=== PATIENT | female | born 1945 | race Caucasian/White ===

== ENCOUNTER 2025-01-07 10:16 | Inpatient (IN) | payer MEDICARE, SELFPAY ==
[2025-01-07 10:17] VITALS: BP 152/82; PULSE 86; RESP 16; TEMP 36.5; O2SAT 100; BMI 27.1
--- NOTE | 2025-01-07 10:39 | EKG12_ITS ---
Test Reason : REPEAT Blood Pressure : */* mmHG Vent. Rate : 100 BPM Atrial Rate : 100 BPM P-R Int : 164 ms QRS Dur : 82 ms QT Int : 366 ms P-R-T Axes : 47 10 23 degrees QTcB Int : 472 ms Normal sinus rhythm Nonspecific ST and T wave abnormality Abnormal ECG Confirmed by RICHARD DAS ([id number]), editor dictionary CHELSEA REID ([id number]) on 01/12/2025 8:05:14 AM Referred By: Confirmed By: RICHARD DAS
--- NOTE | 2025-01-07 11:07 | ED.VIS.DYS ---
HPI History of Present Illness Chief Complaint: Shortness of Breath Narrative Narrative: Chief complaint and HPI: Episodic back pain. 79-year-old female with past medical history of atrial fibrillation on Eliquis, HTN presents for evaluation of episodic back pain. Patient states since last week she has been developing intermittent pain in her upper thoracic that radiates to her bilateral shoulders, bilateral arms, and neck when lying down in her bed at night. She states that she only has the pain when lying down in bed at night to sleep. She states if she sits up the pain resolves. Does not develop the pain throughout the day. Denies any true chest pain with the event. States that she has occasionally become short of breath with exertion. She has been taking all of her anticoagulation has not missed a dose. Currently asymptomatic. She denies any fever, chills, URI symptoms, abdominal pain, nausea, vomiting. Patient saw her soils technician for the complaint above in which they performed an EKG that showed nonspecific changes and sent her to the emergency department for further workup. Denies any lower extremity pain or swelling. Review of systems: See HPI Medications: As listed on the chart Allergies: As listed on the chart PFSH: Per chart Vital signs: As listed on the chart. Reviewed. Physical exam: Gen: A&O x3, NAD Head: Normocephalic, atraumatic Eyes: No sclera icterus, conjunctiva clear ENT: Moist mucous membranes Neck: Trachea midline, No JVD, no carotid bruit, no midline spinal tenderness, full range of motion, mild tenderness to palpation of the paraspinal musculature of the right upper thoracic paraspinal musculature CV: RRR, no murmurs, no peripheral edema Resp: Lungs CTA BL, no w/r/c GI: Abd soft, non-distended, non-tender, no r/r/g Musc: Full ROM, no deformity other than kyphosis Skin: Warm, dry Neuro: Alert, oriented, grossly intact, sensation intact Psych: Cooperative, appropriate mood and affect [facility] Medical History Macular degeneration GERD (gastroesophageal reflux disease) Paroxysmal atrial fibrillation Essential hypertension Right atrial enlargement Atrial fibrillation HTN (hypertension) SOB (shortness of breath) Fatigue Hypokalemia Home Medications ?Medication ?Instructions ?Recorded ?Last Taken ?Type cetirizine 10 mg capsule 10 mg PO DAILY allergies 03/29/14 Unknown History esomeprazole magnesium 20 mg 20 mg PO DAILY heartburn 10/24/23 01/06/25 08:00 History capsule,delayed release (Nexium) potassium chloride 20 mEq 20 meq PO DAILY #90 TABLETS 10/31/23 01/06/25 22:00 Rx tablet,extended release hydrochlorothiazide 25 mg tablet 25 mg PO DAILY #90 TABLETS 04/24/24 01/06/25 Rx diltiazem HCl 120 mg See Rx Instructions .Route 07/23/24 Unknown Rx capsule,extended release 24 hr .COMPLEX #90 caps apixaban 5 mg tablet (Eliquis) 5 mg PO BID afib #180 tabs 11/04/24 01/06/25 22:00 Rx 5 mg benazepril 20 mg tablet See Rx Instructions .Route 01/01/25 01/06/25 22:00 Rx .COMPLEX #90 tabs Bacillus coagulans 10 billion cell 10 cell PO DAILY probiotic 01/07/25 Unknown History capsule,delayed release (Probiotic (B. coagulans)) latanoprost (PF) 0.005 % eye drops 1 drp ophthalmic (eye) QDAY ocular 01/07/25 01/06/25 22:00 History pressure Allergy/AdvReac Type Severity Reaction Status Date / Time ciprofloxacin (From Cipro) AdvReac Other Verified 01/07/25 10:20 ciprofloxacin HCl (From AdvReac Other Verified 01/07/25 10:20 Cipro) Family History Father Hypertension Mother Jeanette Gehrig's disease Brother CAD (coronary artery disease) Surgical History History of basal cell carcinoma excision History of bilateral cataract extraction breast cyst removal Social History Smoking Status: Never smoker alcohol intake: never substance use type: does not use caffeine: Yes Type: coffee Number of servings: 1 what type of physical activity do you participate in: none seatbelt use: always do you feel safe at home: Yes EXAM Physical Exam Const Vital Signs: 01/07/25 10:17 01/07/25 10:17 01/07/25 12:17 Temperature 97.7 F L Temperature Source Oral Pulse Rate 86 75 Respiratory Rate 16 23 H Respiratory Effort Normal Non-Labored Respiratory Depth Normal Respiratory Pattern Normal Blood Pressure 152/82 H 136/69 H Blood Pressure Mean 105 91 Pulse Ox 100 100 Oxygen Delivery Method Room Air Room Air MDM MDM MDM Narrative Medical decision making narrative: 79-year-old female with past medical history of atrial fibrillation on Eliquis, HTN presents for evaluation of episodic back pain. Onset last week and radiates to bilateral shoulders, arms, neck when develops. States it only happens at night when she is lying down in her bed. Associated symptom is intermittent exertional dyspnea. Denies any chest pain. Patient was sent to the ED by cardiology office. Prior to arriving at the emergency department, I did personally speak to the provider that took care of the patient today over the phone. I did review the cardiology note from today. Patient's most recent stress test was in 2013. There is no acute ischemic changes. I do not see an echocardiogram. Differential diagnosis includes but is not limited to myofascial spasm, ACS, CHF, arrhythmia, electrolyte abnormality, suspect less likely PE or pericarditis. Although patient is not currently endorsing chest pain, main concern from cardiology was for NSTEMI therefore aspirin ordered with cardiac/respiratory workup. EKG and chest x-ray reviewed see below. CBC without leukocytosis or anemia. Platelets unremarkable. INR unremarkable. D-dimer unremarkable. BMP relatively unremarkable without ELVIRA. BNP unremarkable. Troponin elevated at 656. Concern is for NSTEMI. Patient not having any chest pain. Repeat EKG obtained given elevated troponin. EKG again shows normal sinus rhythm with nonspecific ST changes. Heart rate 100. Heparin will be started without bolus given patient is already on Eliquis. I spoke with cardiology on-call, agrees with the heparin without bolus. Recommends echocardiogram be performed today with medical admission. Likely will take to [employer] tomorrow. Hospital service was contacted and patient was discussed, accepted admission. Patient was updated of all the results and confirmed understanding of the plan. Repeat troponin 617. EKG: Interpreted by me/EM physician: EKG shows normal sinus rhythm with nonspecific ST changes. Heart rate 78. This is similar to the previous EKG that was seen in the cardiology office. There is artifact on the EKG from the cardiology office. Diagnostic: Interpreted by me/EM physician: Chest x-ray without pneumothorax, pneumonia, effusion. Mild cardiomegaly. Radiology in agreement, hiatal hernia per radiology. 35 minutes of critical care time utilized in managing the patient. This is due to high probability of and deterioration of the patient based on the patient's condition and excludes any separately billable procedures. Impression: 1. NSTEMI 2. History of atrial fibrillation on Eliquis Lab Data Labs: Laboratory Results - last 24 hr 01/07/25 11:00 WBC 5.8 RBC 4.66 Hgb 13.6 Hct 41.6 MCV 89.3 MCH 29.2 MCHC 32.7 RDW Std Deviation 46.5 H RDW Coeff of Wendy 14.4 Plt Count 247 MPV 9.8 Immature Gran % (Auto) 0.200 Neut % (Auto) 60.4 Lymph % (Auto) 26.7 [place] % (Auto) 10.3 H Eos % (Auto) 1.5 Baso % (Auto) 0.9 Absolute Neuts (auto) 3.5 Absolute Lymphs (auto) 1.56 Nucleated RBC % 0 PT 14.2 INR 1.1 APTT 32.6 D-Dimer Quant (PE/DVT) < 0.27 L Sodium 138 Potassium 4.3 Chloride 104 Carbon Dioxide 20.3 L Anion Gap 14 BUN 20 H Creatinine 0.88 Estim Creat Clear Calc 49.33 L Est GFR (MDRD) Non-Af 67 BUN/Creatinine Ratio 22.7 H Glucose 101 H Calcium 9.5 Troponin T High Sens 656 H* NT pro BNP II 1762 Radiography Diagnostic Testing: Clinical Impression(s) from Imaging Studies Chest X-Ray 01/07/25 11:22 IMPRESSION: Mild cardiomegaly. The lungs are clear. Moderate-sized hiatal hernia. Reading Location: [facility]1 Discharge Plan Disposition Disposition: Acute Care Hospital [facility] Discharge Date/Time: 01/07/25 15:22
[2025-01-07] MEDS: Aspirin 81 MG TAB.CHEW 324 MG PO (11:19)
--- NOTE | 2025-01-07 11:22 | RAD_ITS ---
PROCEDURE: CHEST PA AND LATERAL 01/07/2025 REASON FOR EXAM: SOB TECHNIQUE: Frontal and lateral views of the chest. COMPARISON: None FINDINGS: Hardware: EKG electrodes are seen. Heart: Mild cardiomegaly. Tortuosity of the descending thoracic aorta. Mediastinum: The mediastinal contour is unremarkable. Lungs: Elevation of the right hemidiaphragm. Lungs are clear. Bones: Degenerative changes are identified within the thoracic spine. Increased kyphosis. Moderate-sized hiatal hernia. RAD/Chest PA and Lateral IMPRESSION: Mild cardiomegaly. The lungs are clear. Moderate-sized hiatal hernia. Reading Location: [facility]
[2025-01-07 11:23] LABS: Absolute Lymphocyte Count 1.56 X10^3/uL (0.83-4.51); Absolute Neutrophil Count 3.5 X10^3/uL (2.0-7.7); Basophil# 0.05 X10^3/uL; Basophil% 0.9 % (0-1); Eosinophil# 0.09 X10^3/uL; Eosinophils% 1.5 % (0-5); Hematocrit 41.6 % (37-47); Hemoglobin 13.6 g/dL (12.0-15.0); Lymphocyte # 1.56 X10^3/ul (0.83-4.51); Lymphocyte % 26.7 % (19-41); Mean Corp Hgb Conc 32.7 g/dL (32-36); Mean Corpuscular Hgb 29.2 pg (27.0-32.0); Mean Corpuscular Volume 89.3 fL (81-99); Mean Platelet Vol. 9.8 fl (6.2-12.0); Monocyte% 10.3 % (0-10); NRBC Flagged by Analyzer 0 % (0-5); Neutrophil # 3.53 X10^3/uL (2.7-7.7); Neutrophil % 60.4 % (47-70); Platelet Count 247 K/mm3 (150-450); RBC Distribution Width CV 14.4 % (11.6-14.6); RBC Distribution Width SD 46.5 fl (35.1-43.9); Red Blood Count 4.66 M/mm3 (4.2-5.4); White Blood Count 5.8 K/mm3 (4.4-11.0)
[2025-01-07 11:45] LABS: International Normalized Ratio 1.1; Prothrombin Time (Protime)PT. 14.2 SECONDS (11.7-14.9)
[2025-01-07 11:46] LABS: Partial Thromboplast Time 32.6 Seconds (24.1-36.2)
[2025-01-07 11:52] LABS: Anion Gap 14 (5-15); BUN 20 mg/dL (4-19); BUN/Creat Ratio 22.7 RATIO (10-20); Calcium,Total 9.5 mg/dL (7.6-11.0); Carbon Dioxide 20.3 mmol/L (21.0-32.0); Chloride 104 mmol/L (98-108); Creatinine, Serum 0.88 mg/dL (0.70-1.20); EST Glomerular Filtration Rate 67 (>60); Estimated Creatinine Clearance 49.33 ml/min (50-250); Glucose 101 mg/dL (70-99); Potassium 4.3 mmol/L (3.3-5.1); Sodium Level 138 mmol/L (133-145)
[2025-01-07 11:55] LABS: Pro- Brain NATRIURETIC PEPTIDE 1762 pg/mL (<=1800); Troponin T High Sensitivity 656 ng/L (<=14)
[2025-01-07 12:17] VITALS: BP 136/69; PULSE 75; RESP 23; O2SAT 100
[2025-01-07 12:19] LABS: D-Dimer Quantitative (DVT/PE) < 0.27 FEU/ug/m (0.27-0.49)
--- NOTE | 2025-01-07 12:29 | EKG12_ITS ---
Test Reason : CP Blood Pressure : */* mmHG Vent. Rate : 78 BPM Atrial Rate : 78 BPM P-R Int : 136 ms QRS Dur : 90 ms QT Int : 410 ms P-R-T Axes : 59 14 68 degrees QTcB Int : 467 ms Normal sinus rhythm Nonspecific ST abnormality Abnormal ECG Confirmed by RICHARD DAS ([id number]), editor in chief CHELSEA REID ([id number]) on 01/12/2025 8:05:28 AM Referred By: Confirmed By: RICHARD DAS
[2025-01-07] MEDS: HEPARIN/D5w 25,000 UNITS 25,000 UNITS/250 ML IV.SOLN. 8 UNITS CONT INF (13:00)
--- NOTE | 2025-01-07 13:16 | HP.PCM.HOS_ITS ---
[facility] - General General Date of Service: 01/07/25 Chief Complaint: Shortness of breath HPI Narrative RITIKA DAMON, is a 79 F who presents with shortness of breath. This is a 79-year-old female with A-fib that is presenting with shortness of breath. Symptoms began a week ago and was primarily noted at night when she would lay down. She would also have discomfort into her shoulders and neck and through to her back. Denied any chest pain. To get short of breath with exertion. Over this past week, her symptoms have gotten better. She went to the process pumper office and explained her symptoms and they sent her to the emergency room. She had an EKG that was normal sinus rhythm but did have some subtle T wave inversions in inferior leads. And her cardiac enzymes came back at 656. Cardiology was notified and saw the patient and tentative plan is for a cardiac catheterization on the . Patient has never had a myocardial infarction before. [facility] Medical History Macular degeneration GERD (gastroesophageal reflux disease) Paroxysmal atrial fibrillation Essential hypertension Right atrial enlargement Atrial fibrillation HTN (hypertension) SOB (shortness of breath) Fatigue Hypokalemia Home Medications ?Medication ?Instructions ?Recorded ?Last Taken ?Type cetirizine 10 mg capsule 10 mg PO DAILY 03/29/14 Unkn own History esomeprazole magnesium 20 mg 20 mg PO DAILY 10/24/23 U nknown History capsule,delayed release (Nexium) potassium chloride 20 mEq 20 meq PO DAILY #90 TABLETS 10/31/23 Unknown Rx tablet,extended release hydrochlorothiazide 25 mg tablet 25 mg PO DAILY #90 TA BLETS 04/24/24 Unknown Rx diltiazem HCl 120 mg See Rx Instructions .Route 1 09/23/23 Unknown Rx capsule,extended release 24 hr .COMPLEX #90 caps apixaban 5 mg tablet (Eliquis) 5 mg PO BID #180 tabs 0 11/04/24 Unknown Rx benazepril 20 mg tablet See Rx Instructions .Route 0 01/01/25 Unknown Rx .COMPLEX #90 tabs Bacillus 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 coagulans)) latanoprost (PF) 0.005 % eye drops 1 drp ophthalmic (e ye) QDAY 01/07/25 Unknown History Allergy/AdvReac Type Severity Reaction Status Date / Time ciprofloxacin (From Cipro) AdvReac Other Verified 01/07/25 10:20 ciprofloxacin HCl (From AdvReac Other Verified 01/07/25 10:20 Cipro) Family History Father Hypertension Mother Jeanette Gehrig's disease Brother CAD (coronary artery disease) Surgical History History of basal cell carcinoma excision History of bilateral cataract extraction breast cyst removal Social History Smoking Status: Never smoker alcohol intake: never substance use type: does not use caffeine: Yes Type: coffee Number of servings: 1 what type of physical activity do you participate in: none seatbelt use: always do you feel safe at home: Yes ROS ROS Narrative Denies chest pain, nausea vomiting, diaphoresis, Lower extremity edema. All review of systems were negative except as mentioned above in the history of present illness and the other review of systems. Vital Signs Vital Signs Vital Signs: 01/07/25 10:17 01/07/25 10:17 01/07/25 12:17 Temperature 36.5 C L Temperature Source Oral Pulse Rate 86 75 Respiratory Rate 16 23 H Respiratory Effort Normal Non-Labored Respiratory Depth Normal Respiratory Pattern Normal Blood Pressure 152/82 H 136/69 H Blood Pressure Mean 105 91 Pulse Ox 100 100 Oxygen Delivery Method Room Air Room Air Weight Weight: 69.672 kg Body Mass Index (BMI) 27.1 Physical Exam Const alert and no apparent distress Constitutional Narrative: Kyphotic posture. General Appearance: cooperative and uncooperative HEENT normocephalic and head/scalp atraumatic Eyes Eyes Narrative: No icterus Neck no lymphadenopathy Neck Narrative: No thyromegaly Resp normal respiratory effort, no retractions, no use of accessory muscles and clear to auscultation bilaterally Cardio regular rate, regular rhythm, S1 normal heart sound and S2 normal heart sound GI normal to inspection, nondistended, normoactive bowel sounds, soft to palpation, non-tender and non-distended Extremity normal to inspection Extremity Narrative: Normal pulses. No lower extremity edema. Neuro moves all extremities Sensorium / Orientation: awake, alert and oriented to place Psych affect normal Results Lab / Micro Data Attestation: I reviewed the patient's lab results. 01/07/25 11:00 01/07/25 11:00 Labs: Laboratory Results - last 24 hr 01/07/25 11:00: WBC 5.8, RBC 4.66, Hgb 13.6, Hct 41.6, MCV 89.3, MCH 29.2, MCHC 32.7, RDW Std Deviation 46.5 H, RDW Coeff of Wendy 14.4, Plt Count 247, MPV 9.8, Immature Gran % (Auto) 0.200, Neut % (Auto) 60.4, Lymph % (Auto) 26.7, [place] % (Auto) 10.3 H, Eos % (Auto) 1.5, Baso % (Auto) 0.9, Absolute Neuts (auto) 3.5, Absolute Lymphs (auto) 1.56, Nucleated RBC % 0, PT 14.2, INR 1.1, APTT 32.6, D- Dimer Quant (PE/DVT) < 0.27 L, Sodium 138, Potassium 4.3, Chloride 104, Carbon Dioxide 20.3 L, Anion Gap 14, BUN 20 H, Creatinine 0.88, Estim Creat Clear Calc 49.33 L, Est GFR (MDRD) Non-Af 67, BUN/Creatinine Ratio 22.7 H, Glucose 101 H, Calcium 9.5, Troponin T High Sens 656 H*, NT pro BNP II 1762 EKG Follow-up EKG: Attestation: I personally reviewed and interpreted this EKG as follows: Prior EKG tracings: available for review EKG Rhythm Intrepretation: Sinus Rhythm (Very T waves in inferior leads.) Imaging Radiology Impression Chest X-Ray 01/07/25 11:22 IMPRESSION: Mild cardiomegaly. The lungs are clear. Moderate-sized hiatal hernia. Reading Location: [facility] Assessment & Plan Assessment/Plan (1) NSTEMI, initial episode of care: PLAN: Patient presents with atypical type symptoms and the fact that her symptoms were shortness of breath and pain in her shoulders and neck that started a week ago. She describes her symptoms actually getting better during this time. Troponins were elevated at 656. Cannot rule out that these were even higher before. Will continue to cycle her troponins. Patient does take apixaban at home but has been started on heparin drip. Will hold off on any apixaban for now continue the heparin drip. Patient has been seen by cardiology and tentative plan is for her to have a heart catheterization on the . PLAN: Plan Chronic conditions * Paroxysmal atrial fibrillation: Apixaban being held for now because of being on heparin drip. Continue with diltiazem * GERD: Continue PPI VTE prophylaxis not indicated as patient is already anticoagulated CODE STATUS: Addressed with the patient. Patient wishes to be full code. Charges/Coding Visit Charges Inpatient E&M: 86068 Init Hosp L3
--- NOTE | 2025-01-07 13:26 | CASEMGMT ---
Care Management Face to Face with patient for initial transition planning/care coordination assessment in the ED. This telegraphic typewriter repairer introduced self and role at [facility]. Patient alert and oriented. Patient willing to participate in assessment and is able to answer all questions appropriately. Patient's Efrain, at bedside. Care providers, pharmacy, and demographics verified. Admitting Diagnosis: NSTEMI Other diagnosis history: a-fib PCP: Becky Mcknight Specialists: [facility] Preferred Pharmacy: [facility] Insurance: An[employer] Medicare Prescription Benefit: yes Living Will/HPOA: Efrain is HCPOA. Asked to bring in documents, but patient was unsure if would be able to find them. LNOK: , daughter (Simona) and son (Tom) Living Arrangements: with , 2 story home with 2 steps to enter but first floor living. Independent at baseline with all ADLs/IADLs. Transportation: patient drives DME: none HHC: none SNF/Rehab: none Community Resources: none Patient goals: Patient wishes to discharge home, denies need for home health care at this time. Patient denies any further needs or concerns at this time. Disposition Plan: admission to acute; RN CM/SW to follow for discharge planning needs that may arise. Marine Olivares, SEBD TEACHER, FORGING ROLL OPERATOR
[2025-01-07 13:32] VITALS: BP 136/69; PULSE 75; RESP 23; TEMP 36.6; O2SAT 100
[2025-01-07 13:33] LABS: Troponin T High Sens 2 HR 617 ng/L (<=14)
[2025-01-07 14:00] VITALS: BP 167/85; PULSE 101; RESP 18; O2SAT 98
[2025-01-07 15:46] VITALS: BP 132/80; PULSE 87; RESP 18; TEMP 37; O2SAT 94
--- NOTE | 2025-01-07 16:09 | ECHOCS_ITS ---
Reason For Study Reason For Study: CHEST PAIN Procedure This was a 2D Doppler, Color Flow transthoracic echocardiogram. The study was technically difficult. Due to suboptimal imaging windows. Contrast injection was performed. Exam performed portable in patient room. Left Ventricle Normal left ventricle. The estimated ejection fraction is 45-50 %. Right Ventricle Normal right ventricle. Mitral Valve There is mild mitral annular calcification. Trivial mitral valve insufficiency. Tricuspid Valve Normal tricuspid valve. Aortic Valve Trisinus/trileaflet aortic valve. Pulmonic Valve The pulmonic valve is not well visualized. Great Vessels The aortic root is not well visualized. Pericardium/Pleural No pericardial effusion. Medication Diluted definity 3.0ml given slow IV push to enhance endocardial definition. MMode/2D Measurements & Calculations LVIDd: 4.9 cm IVSd: 1.2 cm LAV(MOD- bp): 61.6 ml LVIDs: 3.8 cm LVPWd: 1.1 cm LAV(MOD- bp) Indexed: 35.7 ml/m2 RVDd: 2.6 cm FS: 21.7 % LAV(MOD- sp2): 54.2 ml LAV(MOD- sp4): 61.8 ml SV(MOD- sp4): 22.3 ml LVAd ap4: 20.2 cm2 LVAd ap2: 19.5 cm2 LVLd ap4: 7.0 cm LVLd ap2: 7.4 cm SI(MOD- sp4): 12.9 ml/m2 EDV(MOD-sp4): 48.5 ml EDV(MOD-sp2): 42.2 ml EDV(sp4-el): 49.7 ml EDV(sp2-el): 43.6 ml LVAs ap4: 14.3 cm2 LVAs ap2: 13.0 cm2 LVLs ap4: 6.3 cm LVLs ap2: 6.4 cm ESV(MOD-sp4): 26.2 ml ESV(MOD-sp2): 22.5 ml ESV(sp4-el): 27.6 ml ESV(sp2-el): 22.5 ml EF(MOD-sp4): 45.9 % EF(MOD-sp2): 46.7 % EF(sp4-el): 44.5 % SV(MOD-sp2): 19.7 ml SV(sp4-el): 22.2 ml LA A4 area: 21.1 cm2 SI(MOD-sp2): 11.4 ml/m2 LA dimension(2D): 4.3 cm TAPSE: 1.8 cm RA A4 area: 10.3 cm2 Time Measurements MV dec time: 0.17 sec Doppler Measurements & Calculations MV E max jimi: 69.3 cm/sec Lat Peak E' Jimi: 7.3 cm/sec Med Peak E' Jimi: 5.2 cm/sec MV A max jimi: 103.7 cm/sec E/E' lat: 9.5 E/E' med: 13.4 MV E/A: 0.67 MV V2 max: 97.8 cm/sec MV P1/2t max jimi: 72.1 cm/sec Ao V2 max: 86.9 cm/sec MV max P.8 mmHg MV P1/2t: 48.5 msec Ao max P.0 mmHg MV V2 mean: 56.4 cm/sec MV dec slope: 435.7 cm/sec2 Ao V2 mean: 58.9 cm/sec MV mean P.4 mmHg Ao mean P.5 mmHg MV V2 VTI: 21.8 cm MVA(P1/2t): 4.5 cm2 Ao V2 VTI: 16.0 cm AV (velocity ratio): 0.90 LV V1 max: 74.3 cm/sec MR max jimi: 516.4 cm/sec PA V2 max: 99.7 cm/sec LV V1 max P.2 mmHg MR max P.7 mmHg PA V2 mean: 61.8 cm/sec LV V1 mean P.1 mmHg MR mean jimi: 413.4 cm/sec LV V1 mean: 49.4 cm/sec MR mean P.9 mmHg LV V1 VTI: 14.4 cm MR VTI: 160.7 cm PI dec slope: 299.7 cm/sec2 TR max jimi: 268.5 cm/sec TR max P.8 mmHg ECHO/Echo Complete W/ Contrast Interpretation Summary The estimated ejection fraction is 45-50 %. In comparison to previous echo mildly reduced LV systolic function. No significant valvular abnormality No pericardial effusion. Ordering Physician: [place] Damico Referring Physician: Becky Mcknight Performed By: Katie Zaragoza, RDCS, RVT
--- NOTE | 2025-01-07 16:09 | EKG12_ITS ---
Test Reason : PRE OP Blood Pressure : */* mmHG Vent. Rate : 96 BPM Atrial Rate : 96 BPM P-R Int : 154 ms QRS Dur : 78 ms QT Int : 328 ms P-R-T Axes : 69 9 184 degrees QTcB Int : 414 ms Sinus rhythm with Premature atrial complexes ST & T wave abnormality, consider anterolateral ischemia Abnormal ECG When compared with ECG of 07-Jan-2025 16:45, MANUAL COMPARISON REQUIRED DATA IS UNCONFIRMED Confirmed by RICHARD DAS ([id number]), society editor CHELSEA REID ([id number]) on 01/12/2025 8:14:06 AM Referred By: RED Confirmed By: RICHARD DAS
--- NOTE | 2025-01-07 16:42 | CON.PCM.CA_ITS ---
HPI Consult Data Date of Consult: 01/07/25 HPI Narrative Reason for Consultation: Non-STEMI HPI Narrative: RITIKA DAMON, is a 79 F who presents [facility] Medical History Macular degeneration GERD (gastroesophageal reflux disease) Paroxysmal atrial fibrillation Essential hypertension Right atrial enlargement Atrial fibrillation HTN (hypertension) SOB (shortness of breath) Fatigue Hypokalemia Home Medications ?Medication ?Instructions ?Recorded ?Last Taken ?Type cetirizine 10 mg capsule 10 mg PO DAILY 03/29/14 Unkn own History esomeprazole magnesium 20 mg 20 mg PO DAILY 10/24/23 U nknown History capsule,delayed release (Nexium) potassium chloride 20 mEq 20 meq PO DAILY #90 TABLETS 10/31/23 Unknown Rx tablet,extended release hydrochlorothiazide 25 mg tablet 25 mg PO DAILY #90 TA BLETS 04/24/24 Unknown Rx diltiazem HCl 120 mg See Rx Instructions .Route 1 09/23/23 Unknown Rx capsule,extended release 24 hr .COMPLEX #90 caps apixaban 5 mg tablet (Eliquis) 5 mg PO BID afib #180 t abs 11/04/24 01/06/25 22:00 Rx 5 mg benazepril 20 mg tablet See Rx Instructions .Route 0 01/01/25 Unknown Rx .COMPLEX #90 tabs Bacillus 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 coagulans)) latanoprost (PF) 0.005 % eye drops 1 drp ophthalmic (e ye) QDAY 01/07/25 Unknown History Allergy/AdvReac Type Severity Reaction Status Date / Time ciprofloxacin (From Cipro) AdvReac Other Verified 01/07/25 10:20 ciprofloxacin HCl (From AdvReac Other Verified 01/07/25 10:20 Cipro) Family History Father Hypertension Mother Jeanette Gehrig's disease Brother CAD (coronary artery disease) Surgical History History of basal cell carcinoma excision History of bilateral cataract extraction breast cyst removal Social History Smoking Status: Never smoker alcohol intake: never substance use type: does not use caffeine: Yes Type: coffee Number of servings: 1 what type of physical activity do you participate in: none seatbelt use: always do you feel safe at home: Yes Physical Exam Cardio Cardio Narrative: 79-year-old female seen and evaluated in the ED Cardiac consultation requested for elevated high sensitive troponins/non-ST elevation WI. She had symptoms of palpitation with shortness of breath and generalized chest pain mainly described as diffuse chest discomfort with some radiation to the back and to both shoulders more prominent on the left side. Cardiac consultation requested as she has elevated high sensitive troponins with a clinical diagnosis of non-ST elevation WI. Patient has history of paroxysmal A-fib and she was on Cardizem as well she was in [facility] with Eliquis As well she had been on lisinopril. Other medical problem include history of GERD and mild macular degeneration. And on previous echocardiogram noted she had right atrial enlargement and she had paroxysmal atrial fibrillation. Bedside evaluation she is comfortable she does not have any active chest pain at time of evaluation. On the biomedical engineering technician showed underlying sinus rhythm. Cardiac exam essentially normal Chest clear to auscultation bilateral Cardiac care plan recommendations; 1. This patient has non-ST elevation WI with significant elevated high sensitive troponin more than 600. Started the patient on heparin Will continue with the Cardizem. Eliquis has been on hold She was given also low-dose aspirin 81 mg. Will start on statin. And will continue on her SAMUEL inhibitor benazepril. Will plan for echocardiographic evaluation to assess LV function. As well we will plan for cardiac catheterization/right radial artery approach with Which will be set up for tomorrow. Mick White MD,[facility] Risk Stratification Risk Stratification Applicable: Yes Age >/= 65: Yes >/= 3 CAD Risk Factors (HTN, HLD, DM, family hx of CAD, or current smoker): Yes (Hypertension) Aspirin Use in the Past 7 Days: Yes Severe Angina (>/= episodes in 24 hours): No EKG ST Changes >/= 0.5mm: No (No significant ST-T changes in the EKG) Positive Cardiac Marker: Yes (High sensitive troponin elevated more than 600) JUAN Risk Stratification Score: 4 JUAN % Risk: 20% Risk Objective Data Vital Signs: Vital Signs Temp Pulse Resp BP Pulse Ox O2 Del Method 98.6 F 87 18 132/80 H 94 Room Air 01/07/25 15:46 01/07/25 15:46 01/07/25 15:46 01/07/25 15:46 01/07/25 15:46 01/07/25 16:11 Oxygen Delivery Method Room Air Weight: 153 lb 9.6 oz Body Mass Index (BMI) 27.1 Lab / Micro Data 01/07/25 11:00 01/07/25 11:00 Labs: Laboratory Results - last 24 hr 01/07/25 11:00: WBC 5.8, RBC 4.66, Hgb 13.6, Hct 41.6, MCV 89.3, MCH 29.2, MCHC 32.7, RDW Std Deviation 46.5 H, RDW Coeff of Wendy 14.4, Plt Count 247, MPV 9.8, Immature Gran % (Auto) 0.200, Neut % (Auto) 60.4, Lymph % (Auto) 26.7, [place] % (Auto) 10.3 H, Eos % (Auto) 1.5, Baso % (Auto) 0.9, Absolute Neuts (auto) 3.5, Absolute Lymphs (auto) 1.56, Nucleated RBC % 0, PT 14.2, INR 1.1, APTT 32.6, D- Dimer Quant (PE/DVT) < 0.27 L, Sodium 138, Potassium 4.3, Chloride 104, Carbon Dioxide 20.3 L, Anion Gap 14, BUN 20 H, Creatinine 0.88, Estim Creat Clear Calc 49.33 L, Est GFR (MDRD) Non-Af 67, BUN/Creatinine Ratio 22.7 H, Glucose 101 H, Calcium 9.5, Troponin T High Sens 656 H*, NT pro BNP II 1762 01/07/25 13:01: Troponin T Hi Sens 2 Hr 617 H* Cardiology Labs/Tests 01/07/25 11:00: WBC 5.8, RBC 4.66, Hgb 13.6, Hct 41.6, MCV 89.3, MCH 29.2, MCHC 32.7, Plt Count 247, MPV 9.8, Immature Gran % (Auto) 0.200, Neut % (Auto) 60.4, Lymph % (Auto) 26.7, [place] % (Auto) 10.3 H, Eos % (Auto) 1.5, Baso % (Auto) 0.9, Absolute Neuts (auto) 3.5, Nucleated RBC % 0, PT 14.2, INR 1.1, APTT 32.6, D- Dimer Quant (PE/DVT) < 0.27 L, Sodium 138, Potassium 4.3, Chloride 104, Carbon Dioxide 20.3 L, Anion Gap 14, BUN 20 H, Creatinine 0.88, Est GFR (MDRD) Non-Af 67, BUN/Creatinine Ratio 22.7 H, Glucose 101 H, Calcium 9.5 Rhythm: EKG: ECHO: Stress Test: Cardiac Cath: PCI: CT Surgery: Holter monitor: EPS: PPM: CXR: Chest CT Scan: Radiography Diagnostic Testing: Radiology Impression Chest X-Ray 01/07/25 11:22 IMPRESSION: Mild cardiomegaly. The lungs are clear. Moderate-sized hiatal hernia. Reading Location: [place] [id number]
[2025-01-07 17:55] LABS: Troponin T High Sens 4 HR 573 ng/L (<=14)
[2025-01-07 18:59] LABS: Partial Thromboplast Time 62.2 Seconds (24.1-36.2)
[2025-01-07] MEDS: Acetaminophen 325 MG Tablet 650 MG PO (19:54)
[2025-01-07 20:01] VITALS: BP 147/69; PULSE 94; RESP 17; TEMP 36.2; O2SAT 97
--- NOTE | 2025-01-07 22:45 | NURSING ---
hep gtt paused d/t losing iv site, will restart as soon as new piv place.
[2025-01-07] MEDS: 0.9% Saline Lock 10 ML Syringe IV (23:05)
--- NOTE | 2025-01-07 23:06 | NURSING ---
hep gtt resume at this time
[2025-01-08] VITALS (17 sets, daily range): BP systolic 112–143; BP diastolic 55–83; PULSE 82–91; RESP 16–17; TEMP 36.1–36.8; O2SAT 92–98
[2025-01-08 01:11] LABS: Partial Thromboplast Time 60.8 Seconds (24.1-36.2)
--- NOTE | 2025-01-08 05:55 | EKG12_ITS ---
Test Reason : ADMIT Blood Pressure : */* mmHG Vent. Rate : 81 BPM Atrial Rate : 81 BPM P-R Int : 140 ms QRS Dur : 90 ms QT Int : 374 ms P-R-T Axes : 47 -2 -42 degrees QTcB Int : 434 ms Normal sinus rhythm Nonspecific ST and T wave abnormality Abnormal ECG When compared with ECG of 07-Jan-2025 12:47, MANUAL COMPARISON REQUIRED DATA IS UNCONFIRMED Confirmed by RICHARD DAS ([id number]), managing editor CHELSEA REID ([id number]) on 01/12/2025 8:14:28 AM Referred By: Confirmed By: RICHARD DAS
[2025-01-08 06:19] LABS: Absolute Lymphocyte Count 2.04 X10^3/uL (0.83-4.51); Absolute Neutrophil Count 2.9 X10^3/uL (2.0-7.7); Basophil# 0.05 X10^3/uL; Basophil% 0.9 % (0-1); Eosinophil# 0.14 X10^3/uL; Eosinophils% 2.5 % (0-5); Hematocrit 39.5 % (37-47); Lymphocyte # 2.04 X10^3/ul (0.83-4.51); Lymphocyte % 36.3 % (19-41); Mean Corp Hgb Conc 32.9 g/dL (32-36); Mean Corpuscular Hgb 29.3 pg (27.0-32.0); Mean Platelet Vol. 9.5 fl (6.2-12.0); Monocyte# 0.51 X10^3/uL; Monocyte% 9.1 % (0-10); NRBC Flagged by Analyzer 0 % (0-5); Neutrophil # 2.87 X10^3/uL (2.7-7.7); Platelet Count 236 K/mm3 (150-450); RBC Distribution Width CV 14.1 % (11.6-14.6); RBC Distribution Width SD 45.5 fl (35.1-43.9); Red Blood Count 4.44 M/mm3 (4.2-5.4); White Blood Count 5.6 K/mm3 (4.4-11.0)
[2025-01-08] MEDS: Lisinopril 20 MG Tablet PO (06:32)
[2025-01-08 06:33] LABS: Partial Thromboplast Time 72.1 Seconds (24.1-36.2)
[2025-01-08] MEDS: dilTIAZem CD 120 MG Capsule PO (06:33)
[2025-01-08] MEDS: Aspirin E.C. 81 MG Tablet PO (06:33)
[2025-01-08 06:48] LABS: Anion Gap 12 (5-15); BUN 17 mg/dL (4-19); Calcium,Total 9.2 mg/dL (7.6-11.0); Carbon Dioxide 22.4 mmol/L (21.0-32.0); Chloride 106 mmol/L (98-108); Creatinine, Serum 0.72 mg/dL (0.70-1.20); EST Glomerular Filtration Rate 85 (>60); Estimated Creatinine Clearance 54.26 ml/min (50-250); Glucose 107 mg/dL (70-99); Potassium 3.9 mmol/L (3.3-5.1); Sodium Level 141 mmol/L (133-145)
--- NOTE | 2025-01-08 10:38 | PN.HOSP_ITS ---
Reason for Visit Reason for Visit: Diagnoses Non-ST elevation (NSTEMI) myocardial infarction (01/07/25) Subjective Subjective Saw patient at bedside with afternoon as she was down having her heart cath done this morning. Several family members were present. Per cardiology, patient was found to have triple-vessel disease and plan is for transfer to [facility] for CABG evaluation. Patient was laying back comfortably in bed and had no chest pain at this time at rest. She denied any other acute concerns at this time. Objective Data Objective Data Vital Signs: Vital Signs Temp Pulse Resp BP Pulse Ox O2 Del Method 97.6 F L 88 16 142/68 H 96 Room Air 01/08/25 08:16 01/08/25 08:16 01/08/25 08:16 01/08/25 08:16 01/08/25 08:16 01/08/25 08:16 Oxygen Delivery Method Room Air Weight: 69.672 kg Body Mass Index (BMI) 27.1 Intake & Output: Intake and Output for Last 24 Hours 01/06/25 01/07/25 01/08/25 23:59 23:59 23:59 Intake Total 73.87 / 313.87 320.87 / 320.87 Balance 73.87 / 313.87 320.87 / 320.87 Lab / Micro Data 01/08/25 06:10 01/08/25 06:10 Labs: Laboratory Results - last 24 hr 01/07/25 11:00: WBC 5.8, RBC 4.66, Hgb 13.6, Hct 41.6, MCV 89.3, MCH 29.2, MCHC 32.7, RDW Std Deviation 46.5 H, RDW Coeff of Wendy 14.4, Plt Count 247, MPV 9.8, Immature Gran % (Auto) 0.200, Neut % (Auto) 60.4, Lymph % (Auto) 26.7, [place] % (Auto) 10.3 H, Eos % (Auto) 1.5, Baso % (Auto) 0.9, Absolute Neuts (auto) 3.5, Absolute Lymphs (auto) 1.56, Nucleated RBC % 0, PT 14.2, INR 1.1, APTT 32.6, D- Dimer Quant (PE/DVT) < 0.27 L, Sodium 138, Potassium 4.3, Chloride 104, Carbon Dioxide 20.3 L, Anion Gap 14, BUN 20 H, Creatinine 0.88, Estim Creat Clear Calc 49.33 L, Est GFR (MDRD) Non-Af 67, BUN/Creatinine Ratio 22.7 H, Glucose 101 H, Calcium 9.5, Troponin T High Sens 656 H*, NT pro BNP II 1762 01/07/25 13:01: Troponin T Hi Sens 2 Hr 617 H* 01/07/25 17:00: Troponin T Hi Sens 4Hr 573 H* 01/07/25 18:35: APTT 62.2 H 01/08/25 00:41: APTT 60.8 H 01/08/25 06:10: WBC 5.6, RBC 4.44, Hgb 13.0, Hct 39.5, MCV 89.0, MCH 29.3, MCHC 32.9, RDW Std Deviation 45.5 H, RDW Coeff of Wendy 14.1, Plt Count 236, MPV 9.5, Immature Gran % (Auto) 0.200, Neut % (Auto) 51.0, Lymph % (Auto) 36.3, [place] % (Auto) 9.1, Eos % (Auto) 2.5, Baso % (Auto) 0.9, Absolute Neuts (auto) 2.9, Absolute Lymphs (auto) 2.04, Nucleated RBC % 0, APTT 72.1 H, Sodium 141, Potassium 3.9, Chloride 106, Carbon Dioxide 22.4, Anion Gap 12, BUN 17, Creatinine 0.72, Estim Creat Clear Calc 54.26, Est GFR (MDRD) Non-Af 85, B UN/Creatinine Ratio 24.0 H, Glucose 107 H, Calcium 9.2, Magnesium 2.0 Radiography Diagnostic Testing: Radiology Impression Chest X-Ray 01/07/25 11:22 IMPRESSION: Mild cardiomegaly. The lungs are clear. Moderate-sized hiatal hernia. Reading Location: [place] [address] Physical Exam Const alert, oriented x3, no apparent distress and average body habitus General Appearance: cooperative and comfortable HEENT normocephalic, head/scalp atraumatic, hearing grossly normal bilaterally, nasal mucous membranes and turbinates normal and moist oral mucous membranes Eyes PERRL, EOMs intact bilaterally and conjunctivae normal Neck full ROM Chest inspection of chest normal Resp normal respiratory effort, normal air movement, no use of accessory muscles and clear to auscultation bilaterally Cardio regular rate, regular rhythm, no murmurs and peripheral pulses 2+ throughout GI normal to inspection, nondistended, normoactive bowel sounds, soft to palpation, non-tender and non-distended Back/Spine normal ROM Extremity normal to inspection, full ROM and no pedal edema Skin no rashes or lesions noted Psych mental status grossly normal Assessment & Plan Assessment/Plan (1) NSTEMI, initial episode of care: PLAN: Plan Patient is a 79-year-old female who presented to [facility] ED on 01/07/2025 with worsening shortness of breath with exertion and fatigue. 1. NSTEMI type I with severe multivessel disease ? Cardiology following. Presented with worsening shortness of breath with exertion and fatigue for about 1 week. Troponin trend on admit 656 > 617 > 573. EKG showed normal sinus rhythm but subtle T wave inversions in inferior leads. Echo showed EF 45 to 50%, mildly reduced previous, no other abnormalities noted. Left heart cath with severe multivessel disease noted. Per cardiology, plan is for transfer to [facility] for CABG evaluation. Continue heparin drip along with home medications of aspirin, statin, Toprol, lisinopril and hydrochlorothiazide. 2. Paroxysmal A-fib ? Stable in normal sinus rhythm since admission. Continue home Toprol. On heparin drip as above. 3. Hypertension ? Continue home medications as above. 4. GERD ? Continue home PPI. DVT prophylaxis: Not indicated, on heparin drip CODE STATUS: Full code, verified Expected disposition: Transfer to [facility] Total clinical time spent by myself addressing the patient's medical issues, reviewing all the data, and collaborating with patient's care team: 35 minutes. Charges/Coding Visit Charges Inpatient E&M: 25089 Subs Hosp L2
--- NOTE | 2025-01-08 11:03 | PCIREPORT_ITS ---
PCI Cardiac Cath Report PCI Report: Procedure performed; 1. Access from the right common femoral artery With placement of 6 Swazi sheath. 2. Selective left coronary angiography 3. Selective right coronary angiography 4. Measurement of LVEDP 5. Pullback pressure 6. Selective right common femoral artery angiography with manual pressure to maintain hemostasis. Preprocedure diagnosis 79-year-old patient who had symptoms of progressive shortness of breath on exertion Presented to the ED yesterday complaining of chest pain diffuse discomfort in the chest radiating to the back and to the left or right shoulder. Patient had history of hypertension Clinical diagnosis of non-ST elevation SD. Consent; Risk and benefit of procedure explained detail patient like to proceed informed consent obtained. Diagnostic catheter used; 1. 6 Swazi sheath in the right common femoral artery 2. 5 Swazi JL 4 3. 5 Swazi JR4. Procedure in detail; Patient brought to the Elevator Erector Helper in fasting state Access obtained from right common femoral artery as she had a very feeble and palpable right radial artery Under fluoroscopic guidance. Then we will proceed with a diagnostic catheter advanced ascending aorta cannulated the left main without difficulty Then we proceed with an evaluation of the left coronary system multiple views including SHAYLEE, BURRELL cranial and caudal views. Following this the catheter exchanged for 5 Swazi JR4 catheter and selective angiographic view of the right coronary system were obtained Close aortic valve in place the catheter in the mid LV Where LVEDP was measured as well as the pullback pressure. Hemodynamics; LVEDP measuring around 50 mmHg 2. No systolic gradient across aortic valve. Coronary angiography; 1. Left main is calcified distal left main at the site of the bifurcation had around 60-70% stenosis. The left main bifurcates into the left anterior descending on the left circumflex. The calcification in the left main extending to the LAD and the left circumflex. 2. Left anterior descending is a large vessel reach all the way to the apex. The mid LAD had nonobstructive atherosclerosis of around 30% at the site of a large septal branch and diagonal branch D1 had an ostial lesion of around 50 to 60%. Septal branches of the LAD provide collateral to the distal RCA. 3. The left circumflex had a subtotal OM 2 which is moderate-sized vessel. Again collateral was noted from the left circumflex into the distal posterolateral branch. 4. RCA occluded proximally/BULLET LUBRICANT MIXER This is well collateralized from the left coronary system Conclusion recommendation; 79-year-old patient who presented with symptoms of shortness of breath Non-ST elevation SD with symptoms of progressive shortness of breath on exertion Underwent cardiac catheterization which showed multivessel CAD. Will evaluate with echocardiogram As well patient will be transferred for evaluation with CABG/[place]/[facility] Possible OROURKE to LAD, and vein graft to the distal RCA, PDA and OM2 Possible quadruple bypass surgery. Mick White MD,[facility]
--- NOTE | 2025-01-08 11:15 | PCIREPORT_ITS ---
PCI Cardiac Cath Report PCI Report: Procedure performed; 1. Access from the right common femoral artery With placement of 6 Monegasque sheath. 2. Selective left coronary angiography 3. Selective right coronary angiography 4. Measurement of LVEDP 5. Pullback pressure 6. Selective right common femoral artery angiography with manual pressure to maintain hemostasis. Preprocedure diagnosis 79-year-old patient who had symptoms of progressive shortness of breath on exertion Presented to the ED yesterday complaining of chest pain diffuse discomfort in the chest radiating to the back and to the left or right shoulder. Patient had history of hypertension Clinical diagnosis of non-ST elevation CO. Consent; Risk and benefit of procedure explained detail patient like to proceed informed consent obtained. Diagnostic catheter used; 1. 6 Monegasque sheath in the right common femoral artery 2. 5 Monegasque JL 4 3. 5 Monegasque JR4. Procedure in detail; Patient brought to the Dobie Man in fasting state Access obtained from right common femoral artery as she had a very feeble and palpable right radial artery Under fluoroscopic guidance. Then we will proceed with a diagnostic catheter advanced ascending aorta cannulated the left main without difficulty Then we proceed with an evaluation of the left coronary system multiple views including SHAYLEE, BURRELL cranial and caudal views. Following this the catheter exchanged for 5 Monegasque JR4 catheter and selective angiographic view of the right coronary system were obtained Close aortic valve in place the catheter in the mid LV Where LVEDP was measured as well as the pullback pressure. Hemodynamics; LVEDP measuring around 50 mmHg 2. No systolic gradient across aortic valve. Coronary angiography; 1. Left main is calcified distal left main at the site of the bifurcation had around 60-70% stenosis. The left main bifurcates into the left anterior descending on the left circumflex. The calcification in the left main extending to the LAD and the left circumflex. 2. Left anterior descending is a large vessel reach all the way to the apex. The mid LAD had nonobstructive atherosclerosis of around 30% at the site of a large septal branch and diagonal branch D1 had an ostial lesion of around 50 to 60%. Septal branches of the LAD provide collateral to the distal RCA. 3. The left circumflex had a subtotal OM 2 which is moderate-sized vessel. Again collateral was noted from the left circumflex into the distal posterolateral branch. 4. 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 Will evaluate with echocardiogram As well patient will be transferred for evaluation with CABG/[place]/[facility] Possible OROURKE to LAD, and vein graft to the distal RCA, PDA and OM2 Possible quadruple bypass surgery. Mick White MD,FACC,[facility]
[2025-01-08 13:40] LABS: Partial Thromboplast Time 28.4 Seconds (24.1-36.2)
[2025-01-08] MEDS: Acetaminophen 325 MG Tablet 650 MG PO (13:55)
[2025-01-08] MEDS: Loratadine 10 MG Tablet PO (13:56)
[2025-01-08] MEDS: hydroCHLOROthiazide 25 MG Tablet PO (13:56)
[2025-01-08] MEDS: Pantoprazole Sodium 20 MG Tablet PO (13:56)
[2025-01-08] MEDS: Potassium Chloride Oral Tablet 20 MEQ PO (13:56)
[2025-01-08] MEDS: 0.9% Saline Lock 10 ML Syringe IV (13:59)
--- NOTE | 2025-01-08 13:59 | PCM.PN.CARD ---
Subjective Subjective Seen and evaluated at bedside along with the family members and nursing staff Post cardiac catheterization Right groin no hematoma. Comfortable lying in bed. Objective Data Vital Signs: Vital Signs Temp Pulse Resp BP Pulse Ox O2 Del Method 97.6 F L 89 16 124/64 H 93 Room Air 01/08/25 08:16 01/08/25 13:00 01/08/25 08:16 01/08/25 13:00 01/08/25 13:00 01/08/25 13:00 Oxygen Delivery Method Room Air Weight: 153 lb 9.6 oz Body Mass Index (BMI) 27.1 Intake & Output: Intake and Output for Last 24 Hours 01/06/25 01/07/25 01/08/25 23:59 23:59 23:59 Intake Total 73.87 / 313.87 560.87 / 560.87 Balance 73.87 / 313.87 560.87 / 560.87 Lab / Micro Data 01/08/25 06:10 01/08/25 06:10 Labs: Laboratory Results - last 24 hr 01/07/25 17:00: Troponin T Hi Sens 4Hr 573 H* 01/07/25 18:35: APTT 62.2 H 01/08/25 00:41: APTT 60.8 H 01/08/25 06:10: WBC 5.6, RBC 4.44, Hgb 13.0, Hct 39.5, MCV 89.0, MCH 29.3, MCHC 32.9, RDW Std Deviation 45.5 H, RDW Coeff of Wendy 14.1, Plt Count 236, MPV 9.5, Immature Gran % (Auto) 0.200, Neut % (Auto) 51.0, Lymph % (Auto) 36.3, [place] % (Auto) 9.1, Eos % (Auto) 2.5, Baso % (Auto) 0.9, Absolute Neuts (auto) 2.9, Absolute Lymphs (auto) 2.04, Nucleated RBC % 0, APTT 72.1 H, Sodium 141, Potassium 3.9, Chloride 106, Carbon Dioxide 22.4, Anion Gap 12, BUN 17, Creatinine 0.72, Estim Creat Clear Calc 54.26, Est GFR (MDRD) Non-Af 85, BUN/Creatinine Ratio 24.0 H, Glucose 107 H, Calcium 9.2, Magnesium 2.0 01/08/25 13:18: APTT 28.4 Cardiology Labs/Tests 01/07/25 18:35: APTT 62.2 H 01/08/25 00:41: APTT 60.8 H 01/08/25 06:10: WBC 5.6, RBC 4.44, Hgb 13.0, Hct 39.5, MCV 89.0, MCH 29.3, MCHC 32.9, Plt Count 236, MPV 9.5, Immature Gran % (Auto) 0.200, Neut % (Auto) 51.0, Lymph % (Auto) 36.3, [place] % (Auto) 9.1, Eos % (Auto) 2.5, Baso % (Auto) 0.9, Absolute Neuts (auto) 2.9, Nucleated RBC % 0, APTT 72.1 H, Sodium 141, Potassium 3.9, Chloride 106, Carbon Dioxide 22.4, Anion Gap 12, BUN 17, Creatinine 0.72, Est GFR (MDRD) Non-Af 85, BUN/Creatinine Ratio 24.0 H, Glucose 107 H, Calcium 9.2, Magnesium 2.0 01/08/25 13:18: APTT 28.4 Rhythm: EKG: ECHO: Stress Test: Cardiac Cath: PCI: CT Surgery: Holter monitor: EPS: PPM: CXR: Chest CT Scan: Radiography Diagnostic Testing: Radiology Impression Echocardiogram 01/07/25 16:09 Interpretation Summary The estimated ejection fraction is 45-50 %. In comparison to previous echo mildly reduced LV systolic function. No significant valvular abnormality No pericardial effusion. Ordering Physician: [place] Damico Referring Physician: Becky Mcknight Performed By: Katie Zaragoza, RDCS, RVT Physical Exam Cardio Cardio Narrative: Cardiac rhythm is sinus rhythm Cardiac exam S1-S2 is regular Chest exam is clear to auscultation bilateral. Examination lower extremity no lower extremity edema. Assessment & Plan Assessment/Plan (1) NSTEMI, initial episode of care: (2) Paroxysmal atrial fibrillation: (3) Essential hypertension: PLAN: Cardiac care plan; 79-year-old patient underwent cardiac catheterization today Her presentation is symptoms of progressive shortness of breath Patient had history of hypertension History of paroxysmal atrial fibrillation GERD Has ongoing symptoms of which are described as shortness of breath on exertion With diffuse chest pain radiating to both shoulder and to the back She has evaluation by echocardiogram which showed mildly reduced LV systolic function Ejection fraction the range of 45-50% She been seen by the cardiology team over here with Dr. 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 She has a very good distal targets to LAD diagonal OM 2 and distal RCA. Cardiac care plan discussed with the [facility]/at [facility] And plan will be to start on the medical therapy with aspirin, statin, SAMUEL inhibitor lisinopril, beta-clark metoprolol XL 25 mg In addition to heparin. Patient has paroxysmal A-fib And once she transfer she will be evaluated for CABG I discussed in detail the cardiac care plan to the patient as well as to the family and nursing staff here at [facility]. Mick White MD,FACC,[facility]
--- NOTE | 2025-01-08 15:48 | CASEMGMT ---
Tertiary Insurance review for hospitals In-network with [facility] insurance if transfer is recommended is as follows: [facility], [facility], [place], [facility], [facility], [facility], , [place], [facility], [facility], and [place]. Abbey Godwin, Discharge Planning Asst.
--- NOTE | 2025-01-08 20:28 | NURSING ---
Report Called To [facility]. Report given to Layla FALL.
[2025-01-08 20:53] LABS: Partial Thromboplast Time 48.2 Seconds (24.1-36.2)
[2025-01-08] MEDS: Latanoprost 0.005% 1 Bottle 1 DRP OPHTHALMIC (21:15)
--- NOTE | 2025-01-09 09:11 | DCINST_ITS ---
Discharge Instructions DC O2, CPAP, BIPAP needs Home O2 Discharge instructions: No Follow Up Care Test Results: Test results from this visit will be discussed in further detail at your follow- up appointment, if applicable. Discharge Plan Admission Admit Date/Time: 01/07/25 13:00 Primary Reason for Your Visit: Shortness of breath with exertion Attending Provider: Danial Salazar Primary Care Provider: MOLLY WHITEHEAD Consulting Providers: Mick White; Washington Damico Discharge Orders/Prescriptions Prescriptions: Continued esomeprazole magnesium [Nexium] 20 mg capsule,delayed release(DR/EC) 20 mg PO DAILY Probiotic (B. coagulans) 10 billion cell capsule,delayed release(DR/EC) 10 cell PO DAILY latanoprost (PF) 0.005 % drops 1 drp ophthalmic (eye) QDAY cetirizine 10 MG capsule 10 mg PO DAILY Patient Comments: allergies potassium chloride 20 mEq tablet extended release 20 meq PO DAILY Qty: 90 4RF hydrochlorothiazide 25 mg tablet 25 mg PO DAILY Qty: 90 3RF diltiazem HCl 120 mg capsule,extended release 24hr See Rx Instructions .ROUTE .COMPLEX Qty: 90 3RF Dose Instruction: TAKE 1 CAPSULE BY MOUTH EVERY DAY Rx Instructions: TAKE 1 CAPSULE BY MOUTH EVERY DAY Eliquis 5 mg tablet 5 mg PO BID Qty: 180 3RF benazepril 20 mg tablet See Rx Instructions .ROUTE .COMPLEX Qty: 90 3RF Dose Instruction: TAKE 1 TABLET BY MOUTH EVERY DAY Rx Instructions: TAKE 1 TABLET BY MOUTH EVERY DAY Referrals / Follow Up: MOLLY WHITEHEAD CRNP [Primary Care Provider] - Disposition Disposition (needs filled in before D/C Order can be placed): Acute [facility]
--- NOTE | 2025-01-09 09:12 | PCM.DC.SUM ---
Providers Date of Admission: 01/07/25 Date of Discharge: 01/08/25 Primary Care Physician: ERIN GRANT Consultations 01/07/25 16:09 Consult: Cardiology Routine Consulting Provider: Mick White Reason for Consult: Chest Pain EMERGENT Consult: No MD Notified: Yes Date Notified: 01/07/25 Time Notified: 13:03 Method of Notification: ED Physician Initiated Reason For Visit: NSTEMI Diagnosis Discharge Diagnosis (1) NSTEMI, initial episode of care: Status: Acute Code(s): I21.4 - Non-ST elevation (NSTEMI) myocardial infarction (2) Paroxysmal atrial fibrillation: Status: Acute Code(s): I48.0 - Paroxysmal atrial fibrillation (3) Essential hypertension: Status: Acute Code(s): I10 - Essential (primary) hypertension Medications at Discharge Home Medications cetirizine 10 mg capsule 10 mg PO DAILY allergies 03/29/14 esomeprazole magnesium 20 mg capsule,delayed release (Nexium) 20 mg PO DAILY heartburn 10/24/23 potassium chloride 20 mEq tablet,extended release 20 meq PO DAILY #90 TABLETS 10/31/23 hydrochlorothiazide 25 mg tablet 25 mg PO DAILY #90 TABLETS 04/24/24 diltiazem HCl 120 mg capsule,extended release 24 hr See Rx Instructions .Route .COMPLEX #90 caps 07/23/24 apixaban 5 mg tablet (Eliquis) 5 mg PO BID afib #180 tabs 11/04/24 benazepril 20 mg tablet See Rx Instructions .Route .COMPLEX #90 tabs 01/01/25 Bacillus coagulans 10 billion cell capsule,delayed release (Probiotic (B. coagulans)) 10 cell PO DAILY probiotic 01/07/25 latanoprost (PF) 0.005 % eye drops 1 drp ophthalmic (eye) QDAY ocular pressure 01/07/25 Hospital Course Operations None Procedures Cardiac catheterization, EKG, Transthoracic echo and - (Chest x-ray) Summary of Care Provided Minutes Spent on Discharge: 35 Hospital Course: Patient is a 79-year-old female who presented to [facility] ED on 01/07/2025 with worsening shortness of breath with exertion and fatigue. Hospital course as noted below. Patient transferred to [facility] on 01/08. 1. NSTEMI type I with severe multivessel disease ? Cardiology followed. Presented with worsening shortness of breath with exertion and fatigue for about 1 week. Troponin trend on admit 656 > 617 > 573. EKG showed normal sinus rhythm but subtle T wave inversions in inferior leads. Echo showed EF 45 to 50%, mildly reduced previous, no other abnormalities noted. Left heart cath with severe multivessel disease noted. Per cardiology, recommendation was for transfer for CABG evaluation. Transferred to [facility] on 01/09. Continue heparin drip along with home medications of aspirin, statin, Toprol, lisinopril and hydrochlorothiazide. 2. Paroxysmal A-fib ? Stable in normal sinus rhythm since admission. Continue home Toprol. On heparin drip as above. 3. Hypertension ? Continue home medications as above. 4. GERD ? Continue home PPI. Total clinical time spent by myself addressing the patient's medical issues, reviewing all the data, and collaborating with patient's care team: 35 minutes. Physical Exam Const alert, oriented x3, no apparent distress and average body habitus General Appearance: cooperative and comfortable HEENT normocephalic, head/scalp atraumatic, hearing grossly normal bilaterally, nasal mucous membranes and turbinates normal and moist oral mucous membranes Eyes PERRL, EOMs intact bilaterally and conjunctivae normal Neck full ROM Chest inspection of chest normal Resp normal respiratory effort, normal air movement, no use of accessory muscles and clear to auscultation bilaterally Cardio regular rate, regular rhythm, no murmurs and peripheral pulses 2+ throughout GI normal to inspection, nondistended, normoactive bowel sounds, soft to palpation, non-tender and non-distended Back/Spine normal ROM Extremity normal to inspection, full ROM and no pedal edema Skin no rashes or lesions noted Psych mental status grossly normal Weight / BMI Weight Weight: 69.672 kg Body Mass Index (BMI) 27.1 ABG / Lab / Microbiology Data 01/08/25 06:10 01/08/25 06:10 Laboratory: Laboratory Results - last 24 hr 01/08/25 13:18: APTT 28.4 01/08/25 20:00: APTT 48.2 H Radiography Diagnostic Testing: Radiology Impression Echocardiogram 01/07/25 16:09 Interpretation Summary The estimated ejection fraction is 45-50 %. In comparison to previous echo mildly reduced LV systolic function. No significant valvular abnormality No pericardial effusion. Ordering Physician: Washington Damico Referring Physician: Becky Whitehead Performed By: Katie Zaragoza, CINDY, RVT D/C Instructions DC O2, CPAP, BIPAP Needs Home O2 Discharge instructions: No Meaningful Use Info Meaningful Use Meaningful Use Diagnoses (Choose all that apply): None applicable Ischemic Stroke Statin Dosing Therapy Reference: STATIN DOSE THERAPY REFERENCE: * Patients > 75 years receive moderate or high dose statin therapy. * Patients 75 years or YOUNGER should receive HIGH intensity statin dose unless contraindicated. You will be required to document reason for non-treatment if statin daily dose does not meet guidelines. HIGH DOSE STATIN THERAPY DAILY Atorvastatin > than or = to 40 mg Rosuvastatin > than or = to 20 mg Amlodipine + Atorvastatin > than or = to 2.5/40 mg Ezetimibe + Simvastatin 10/80 mg Simvastatin 80mg Discharge Plan Admission Admit Date/Time: 01/07/25 13:00 Primary Reason for Your Visit: Shortness of breath with exertion Attending Provider: Danial Salazar Primary Care Provider: BECKY WHITEHEAD Consulting Providers: Mick White; Washington Damico Discharge Orders/Prescriptions Prescriptions: Continued esomeprazole magnesium [Nexium] 20 mg capsule,delayed release(DR/EC) 20 mg PO DAILY Probiotic (B. coagulans) 10 billion cell capsule,delayed release(DR/EC) 10 cell PO DAILY latanoprost (PF) 0.005 % drops 1 drp ophthalmic (eye) QDAY cetirizine 10 MG capsule 10 mg PO DAILY Patient Comments: allergies potassium chloride 20 mEq tablet extended release 20 meq PO DAILY Qty: 90 4RF hydrochlorothiazide 25 mg tablet 25 mg PO DAILY Qty: 90 3RF diltiazem HCl 120 mg capsule,extended release 24hr See Rx Instructions .ROUTE .COMPLEX Qty: 90 3RF Dose Instruction: TAKE 1 CAPSULE BY MOUTH EVERY DAY Rx Instructions: TAKE 1 CAPSULE BY MOUTH EVERY DAY Eliquis 5 mg tablet 5 mg PO BID Qty: 180 3RF benazepril 20 mg tablet See Rx Instructions .ROUTE .COMPLEX Qty: 90 3RF Dose Instruction: TAKE 1 TABLET BY MOUTH EVERY DAY Rx Instructions: TAKE 1 TABLET BY MOUTH EVERY DAY Referrals / Follow Up: BECKY WHITEHEAD CRNP [Primary Care Provider] - Disposition Disposition (needs filled in before D/C Order can be placed): Acute Care Hospital Charges/Coding Visit Charges Inpatient E&M: 86205 Disch Hosp >30min
[2025-01-09 10:04] LABS: ACT Activated Clotting Time 147 sec (74-137)
== END 2025-01-08 23:50 | disposition short-term general hospital (02) | DRG 282 ==
LOC: ED 13:38 → PCU 15:08
PROVIDERS: Internal Medicine Interventional Cardiology; Emergency Provider Surgery; PCP Nurse Practitioner Adult Health; Visit Provider Hospitalist
DX: I21.4 Non-ST elevation (NSTEMI) myocardial infarction (principal); I10 Essential (primary) hypertension; I48.0 Paroxysmal atrial fibrillation; K21.9 Gastro-esophageal reflux disease without esophagitis; Z79.01 Long term (current) use of anticoagulants; Z82.49 Family history of ischemic heart disease and other diseases of the circulatory system; Z79.899 Other long term (current) drug therapy
CPT/HCPCS: 36415; 71046; 80048; 83735; 83880; 84484; 85025; 85347; 85379; 85610; 85730; 93005; 93306; 93454; 99152; 99153; 99285; C1894; Q9957; Q9967; A4216; C1769; C8929

== ENCOUNTER → 2025-02-11 | Outpatient (CLI) | payer MEDICARE, SELFPAY ==
--- NOTE | 2025-02-11 14:40 | RAD_ITS ---
PROCEDURE: CHEST PA AND LATERAL 02/11/2025 REASON FOR EXAM: ABNORMAL LUNG SOUNDS, HX PLEURAL EFFUSION TECHNIQUE: CHEST PA AND LATERAL COMPARISON: PA and lateral chest of 01/07/2025. RAD/Chest PA and Lateral IMPRESSION: The lateral view is limited by significant patient motion. Generalized osteopenia with significant kyphosis again noted. No interval osse ous change is appreciated. Interval sternotomy. Small right and [id number] left pleural effusions are now seen. No pulmonary edema is identified. No focal infiltrate is seen. No pneumothorax is evident. Borderline cardiomegaly, not clearly changed since the prior study. Reading Location: [place] [id number]
[2025-02-11 15:11] LABS: Hematocrit 30.4 % (37-47); Hemoglobin 9.4 g/dL (12.0-15.0); Immature Granulocytes Count 0.020 X10^3/uL (0.0-0.0); Mean Corp Hgb Conc 30.9 g/dL (32-36); Mean Corpuscular Volume 93.3 fL (81-99); Mean Platelet Vol. 10.5 fl (6.2-12.0); NRBC Flagged by Analyzer 0 % (0-5); Platelet Count 227 K/mm3 (150-450); RBC Distribution Width CV 15.2 % (11.6-14.6); RBC Distribution Width SD 51.9 fl (35.1-43.9); Red Blood Count 3.26 M/mm3 (4.2-5.4); White Blood Count 5.9 K/mm3 (4.4-11.0)
[2025-02-11 16:30] LABS: AST(SGOT) 28 U/L (<=31); Alanine Aminotransfer ALT/SGPT 24 U/L (<=34); Albumin, Serum 3.8 g/dL (3.4-4.8); Alkaline Phosphatase 104 U/L (35-104); Anion Gap 11 (5-15); BUN 16 mg/dL (4-19); BUN/Creat Ratio 20.2 RATIO (10-20); Calcium,Total 9.2 mg/dL (7.6-11.0); Carbon Dioxide 20.2 mmol/L (21.0-32.0); Chloride 111 mmol/L (98-108); Cholesterol 114 mg/dL (<=200); Globulin 3.0 g/dL (2.2-4.2); Glucose 106 mg/dL (70-99); Low Density Lipoprotein Calc. 53 mg/dL; Potassium 4.4 mmol/L (3.3-5.1); Pro- Brain NATRIURETIC PEPTIDE 4717 pg/mL (<=1800); Triglycerides 129 mg/dL; Very Low Density Lipoprotein 26 mg/dL (5-40); cholesterol:hdl ratio screen 3.21
== END | disposition home or self-care (01) ==
LOC: RAD 14:09
PROVIDERS: PCP Nurse Practitioner Adult Health; Referring Provider Student in an Organized Health Care Education/Training Program; Visit Provider Student in an Organized Health Care Education/Training Program
DX: J90 Pleural effusion, not elsewhere classified (principal); R06.02 Shortness of breath; I25.10 Atherosclerotic heart disease of native coronary artery without angina pectoris; D64.9 Anemia, unspecified; E87.6 Hypokalemia
CPT/HCPCS: 36415; 71046; 80053; 80061; 83880; 85025

== ENCOUNTER → 2025-02-25 | Outpatient (CLI) | payer MEDICARE, SELFPAY ==
[2025-02-25 14:21] LABS: Anion Gap 14 (5-15); BUN 14 mg/dL (4-19); BUN/Creat Ratio 17.5 RATIO (10-20); Calcium,Total 9.5 mg/dL (7.6-11.0); Carbon Dioxide 20.6 mmol/L (21.0-32.0); Chloride 104 mmol/L (98-108); Glucose 112 mg/dL (70-99); Potassium 3.7 mmol/L (3.3-5.1)
--- OUTSIDE RECORDS SUMMARY | 2025-02-25 22:43 | XMS RPT_ITS | CCD ---
Author Organization [facility] Care Team Providers Care Academic Physician Name Role Phone Agustina Hoang Unavailable Agustina Hoang Unavailable Noé RN, Layla Overton Unavailable MADRIGAL EVALUATOR TRANSFER STUDENTS-WEBSPHERE ADMINISTRATOR, SHANNA Primary Care Physician [phone] MAST EVALUATOR TRANSFER STUDENTS-WEBSPHERE ADMINISTRATOR, BECKY Primary Care Physician [phone] MAST EVALUATOR TRANSFER STUDENTS-WEBSPHERE ADMINISTRATOR, BECKY Primary Care Unavailabl e MAST EVALUATOR TRANSFER STUDENTS-WEBSPHERE ADMINISTRATOR, BECKY Attending Unavailabl e MAST EVALUATOR TRANSFER STUDENTS-WEBSPHERE ADMINISTRATOR, BECKY Attending Unavailabl e MAST EVALUATOR TRANSFER STUDENTS-WEBSPHERE ADMINISTRATOR, BECKY Primary Care Unavailabl e MAST MEDICINE MAN, BECKY Primary Care Provider MAST MEDICINE MAN, BECKY Referring Provider Layla Pagan Attending Provider [phone] Noe Patel Attending Provider Dr. Houston Morales DO Emergency Provider Dr. [place] Damico DO Admit Provider Dr. [place] Damico DO Attending Provider Dr. Richard White MD Other Provider Dr. [place] Damico DO Other Provider Dr. Richard White MD Attending Provider Dr. [place] Damico DO Other Provider Dr. Danial Salazar DO Attending Provider Dr. [place] Damico DO Attending Provider Dr. Danial Salazar DO Other Provider [phone] Mast, Becky Primary Care Provider NONE, PCP Referring Unavailable MAST, BECKY Primary Care Unavailable GARRY FAJARDO Consulting Unavailable LACHO COREAS Admitting Unavailable LACHO COREAS Attending Unavailable Christopher HIENS, Dr. Barton Other Provider [phone] Christopher HINES, Dr. Barton Attending Provider Leni HINES, Sukhdev Attending Provider Unavailable MAST EVALUATOR TRANSFER STUDENTS-WEBSPHERE ADMINISTRATOR, BECKY Attending Unavailabl e MAST EVALUATOR TRANSFER STUDENTS-WEBSPHERE ADMINISTRATOR, BECKY Primary Care Unavailabl e Leni HINES, Sukhdev Referring Provider Unavailable Noe Patel Referring Provider [phone] Washington Damico Admitting Unavailable Richard White Attending Unavailable Richard White Consulting Unavailable MAST, BECKY Primary Care Unavailable Joppbaylee, Washington Consulting Unavailable Deperro OLS, Sukhdev Attending Unavailable MAST, BECKY Primary Care Unavailable DemiterChristalNoe Referring Unavailable DemiterChristalNoe Attending Unavailable MAST, BECKY Primary Care Unavailable Deperro OLS, Sukhdev Attending Unavailable MAST, BECKY Primary Care Unavailable Deperro OLS, Sukhdev Referring Unavailable Deperro OLS, Sukhdev Attending Unavailable MAST, BECKY Primary Care Unavailable MAST, BECKY Primary Care Unavailable Red, Washington Admitting Unavailable Richard White Consulting Unavailable Danial Salazar Attending Unavailable Mickippbaylee, Washington Consulting Unavailable Danial Salazar Consulting Unavailable Danial Salazar Attending Unavailable Demiter, Noe Attending Unavailable MAST, BECKY Primary Care Unavailable MAST, BECKY Referring Unavailable MAST, BECKY Primary Care Unavailable MAST, BECKY Referring Unavailable Layla Pagan Attending Unavail able MAST, BECKY Primary Care Unavailable Demiter, Noe Attending Unavailable MAST, BECKY Referring Unavailable MAST, BECKY Primary Care Unavailable [place] Damico Attending Unavailable Mast, Becky Primary Care Provider Allergies Allergy Classification Reported Allergen(s) Allergy Type Date of Onset Reaction(s) Facility (20 sources) ciprofloxacin; Translations: [Ciprofloxacin] drug allergy 04-15-2014 Diarrhea, Other [facility] Work Phone: (7 sources) Ciprofloxacin; Translations: [ciprofloxacin HCl] Drug Allergy 01-07-2025 Other [facility] Medications Current Medications Medication Drug Class(es) Dates Sig (Normalized) Sig (Original) Acidophilus Probiotic Blend oral capsule (4 sources) Start: 04-15-2020 take 1 capsule by mouth once daily Acidophilus Probiotic Blend oral capsule Dose = 1 cap(s), Oral, qDay, 0 Refill(s) Start Date: 04/15/20 Status: Ordered Repeat number: 1 Start: 04-15-2020 take 1 capsule by [facility] once daily Acidophilus Probiotic Blend oral capsule Dose = 1 cap(s), Oral, qDay, 0 Refill(s) Start Date: 04/15/20 Status: Ordered apixaban 5 mg oral tablet (20 sources) Factor Xa Inhibitor Start: 08-30-2016 End: 01-26-2025 take 1 tablet by mouth twice daily apixaban (Eliquis) 5 MG tablet Take 1 tablet (5 mg) by mouth 2 times daily. 01/26/2025 Active Start: 08-25-2016 End: 08-25-2016 ELIQUIS 2.5 MG TABS APIXABAN [id number] Layla Umanzor RN PreserVision (6 sources) Vitamin C Start: 04-15-2020 take 1 tablet by mouth twice daily PreserVision Dose = 1 tab(s), Oral, BID, # 60 tab(s), 0 Refill(s) Start Date: 04/15/20 Status: Ordered atorvastatin 20 mg oral tablet (9 sources) HMG-CoA Reductase Inhibitor Start: 01-24-2025 End: 01-27-2026 take 1 tablet by mouth at bedtime Atorvastatin (Lipitor) 20 mg tablet Active 20 mg PO AT BEDTIME 90 3 February 11, 2025 1:48pm Bacillus Coagulans (Probiotic (B. Coagulans)) 10 billion cell capsule,delayed release(DR/EC) (6 sources) Start: 01-07-2025 take 10 capsules by mouth once daily Bacillus Coagulans (Probiotic (B. Coagulans)) 10 billion cell capsule,delayed release(DR/EC) Active 10 NMA PO DAILY January 07, 2025 12:00am probiotic Start: 01-07-2025 take 10 capsules by mouth once daily Bacillus Coagulans (Probiotic (B. Coagulans)) 10 billion cell capsule,delayed release(DR/EC) Active 10 NMA PO DAILY January 07, 2025 12:00am Start: 01-07-2025 take 10 capsules by mouth once daily Bacillus Coagulans (Probiotic (B. Coagulans)) 10 billion cell capsule,delayed release(DR/EC) Active NMA PO DAILY January 07, 2025 12:00am cetirizine hydrochloride 10 mg oral tablet (20 sources) Histamine-1 Receptor Antagonist Start: 04-15-2014 End: 01-12-2025 Zyrtec 10 mg oral tablet Dose : 10 mg = 1 tab(s), Oral, qDay, # 30 tab(s), 0 Refill(s) Start Date: 04/15/20 Status: Ordered Quantity: 30.0 Unit: tab(s) Repeat number: 1 Start: 03-29-2014 take 1 capsule by [facility] once daily Cetirizine 10 MG capsule Active 10 mg PO DAILY March 29, 2014 12:00am allergies clopidogrel 75 mg oral tablet (9 sources) [id number] Platelet Inhibitor Start: 01-21-2025 End: 01-27-2026 take 1 tablet by mouth once daily clopidogrel (Plavix) 75 MG tablet Take 1 tablet (75 mg) by mouth daily. 01/27/2025 01/27/2026 Active DilTIAZem Hydrochloride ER 120 mg/24 hours oral capsule, extended release (3 sources) Start: 04-07-2019 take 1 capsule by mouth every hour, then take 1 capsule by mouth once daily DilTIAZem Hydrochloride ER 120 mg/24 hours oral capsule, extended release Dose : 120 mg = 1 cap(s), Oral, qDay, # 30 cap(s), 0 Refill(s) Start Date: 04/07/19 Status: Ordered esomeprazole 20 mg delayed release oral capsule (15 sources) Proton Pump Inhibitor Start: 01-17-2021 End: 01-09-2025 take 1 capsule by mouth once daily Esomeprazole Magnesium (Nexium) 20 mg capsule,delayed release(DR/EC) Active 20 mg PO DAILY October 24, 2023 12:00am heartburn hydrOXYzine hydrochloride 25 mg oral tablet (8 sources) Antihistamine Start: 02-06-2025 End: 02-20-2025 take 1 tablet by mouth twice daily as needed Hydroxyzine Hcl 25 mg tablet Active 25 mg PO TWICE A DAY as needed February 11, 2025 12:00am Start: 01-21-2025 End: 02-24-2025 take 1 capsule by mouth every twelve hours as needed for anxiety hydrOXYzine pamoate (Vistaril) 25 MG capsule Take 1 capsule (25 mg) by mouth every 12 hours as needed for anxiety for up to 10 days. 01/26/2025 02/24/2025 Discontinued (Med list cleanup) lactobacillus acidophilus [id number] unt oral capsule (3 sources) Start: 04-15-2020 take 1 capsule by mouth once daily Acidophilus Probiotic Blend oral capsule Dose = 1 cap(s), Oral, qDay, 0 Refill(s) Start Date: 04/15/20 Status: Ordered latanoprost 0.05 mg/ml ophthalmic solution (13 sources) Prostaglandin Analog Start: 01-07-2025 End: 01-26-2025 Latanoprost (Pf) 0.005 % drops Active 1 NMA OPHTHALMIC daily January 07, 2025 12:00am ocular pressure Start: 09-11-2023 latanoprost 0. 005% ophthalmic solution 0 Refill(s) Start Date: 09/11/23 Status: Ordered Repeat number: 1 take 1 drop(s) into the eye(s) once daily latanoprost (Xalatan) 0.005 % ophthalmic solution Administer 1 drop into both eyes Nightly. Active Lopressor 25mg--USE metoprolol tartrate 25 mg oral tablet (1 source) Start: 02-06-2025 Lopressor 25mg --USE metoprolol tartrate 25 mg oral tablet 0 Refill(s) Start Date: 02/06/25 Status: Ordered Repeat number: 1 melatonin 5 mg oral tablet (5 sources) Start: 01-14-2025 End: 01-26-2025 take 1 tablet by mouth once daily melatonin 5 MG tablet Take 1 tablet (5 mg) by mouth Nightly. 01/26/2025 Active Melatonin Gummies (7 sources) Start: 01-17-2021 Melatonin Durga ies Dose : 2.5 mg =, Chewed, qHS, 2 daily, 0 Refill(s) Start Date: 01/17/21 Status: Ordered Repeat number: 1 Start: 01-17-2021 Melatonin Durga ies Dose : 2.5 mg =, Chewed, qHS, 2 daily, 0 Refill(s) Start Date: 01/17/21 Status: Ordered metoprolol tartrate 25 mg oral tablet (14 sources) beta-Adrenergic Clark Start: 02-24-2025 take 0.5 tablet by mouth twice daily metoprolol tartrate (Lopressor) 25 MG tablet Take 0.5 tablets (12.5 mg) by mouth 2 times daily. 02/24/2025 Active Start: 01-26-2025 End: 02-24-2025 take 1 tablet by mouth twice daily metoprolol tartrate (Lopressor) 25 MG tablet Take 1 tablet (25 mg) by mouth 2 times daily. 01/26/2025 02/24/2025 Discontinued Start: 01-15-2025 End: 01-26-2026 Metoprolol Tartrate 25 mg ta blet Discontinued 12.5 mg PO TWICE A DAY February 11, 2025 12:00am February 11, 2025 1:55pm Start: 01-09-2025 End: 01-12-2025 montelukast 10 mg oral tablet (13 sources) Leukotriene Receptor Antagonist Start: 03-12-2024 End: 03-07-2025 montelukast 10 mg oral tablet Dose : 10 mg = 1 tab(s), Oral, qDay, # 90 tab(s), 3 Refill(s), Pharmacy: [facility]/pharmacy #[id number], 154, cm, 10/19/23 13:33:00 EST, Height, kg, 10/19/23 13:33:00 EST, Dosing Weight Start Date: 03/12/24 Stop Date: 03/07/25 Status: Ordered Quantity: 90.0 Unit: tab(s) Repeat number: 4 Start: 08-17-2022 End: 10-24-2023 Montelukast 10 mg tablet Discontinued NMA PO August 17, 2022 1:00am October 24, 2023 10:48am Start: 01-17-2021 take 1 tablet by franco th once daily montelukast 10 mg oral tablet See Instructions, TAKE 1 TABLET BY MOUTH EVERY DAY, # 90 tab(s), 3 Refill(s), Pharmacy: [facility]/pharmacy #[id number], 157, cm, 01/17/21 8:46:00 EDT, Height, kg, 01/17/21 8:46:00 EDT, Dosing Weight Start Date: 01/17/21 Status: Ordered microencapsulated potassium chloride 20 meq extended release oral tablet (20 sources) Start: 01-26-2025 End: 01-31-2025 Start: 01-14-2025 End: 01-14-2025 Start: 01-13-2025 End: 01-26-2025 Start: 04-07-2019 potassium chlo ride 20 mEq oral tablet, extended release Dose : 20 mEq = 1 tab(s), Oral, qDay, # 30 tab(s), 0 Refill(s) Start Date: 04/07/19 Status: Ordered Start: 08-30-2017 End: 01-14-2025 take 1 tablet by mouth once daily Potassium Chloride 20 mEq tablet extended release Discontinued 20 meq PO DAILY 90 4 October 31, 2023 10:50am January 14, 2025 8:25am Start: 08-30-2016 take 2 tablets by mo uth once daily, then take 1 tablet by mouth, then take 1 tablet by mouth once daily POTASSIUM CHLORIDE ER 20 MEQ CR-TABS Two tablets by mouth day one and then one tablet by mouth daily POTASSIUM CHLORIDE [id number] Mitchel Ruth MD End: 01-09-2025 Completed/Discontinued Medications Medication Drug Class(es) Dates Sig (Normalized) Sig (Original) acetaminophen 500 mg oral tablet (10 sources) Start: 01-25-2025 End: 01-25-2025 Start: 01-24-2025 End: 01-26-2025 Start: 01-24-2025 End: 01-24-2025 Start: 01-12-2025 End: 01-17-2025 take 1000 mg by mouth every eight hours 20 ml albumin human, senior care 250 mg/ml injection (6 sources) Human Serum Albumin Start: 01-12-2025 End: 01-26-2025 albuterol 0.833 mg/ml / ipratropium bromide 0.167 mg/ml inhalation solution (4 sources) Anticholinergic, beta2-Adrenergic Agonist Start: 01-12-2025 End: 01-26-2025 aspirin 81 mg delayed releas e oral tablet (20 sources) Nonsteroidal Anti-inflammatory Drug Start: 01-09-2025 End: 01-22-2025 Start: 04-15-2014 End: 01-01-2017 take 1 tablet by mouth once daily ASPIRIN 325 MG TABS One tablet by mouth daily ASPIRIN [id number] Mitchel Ruth MD Start: 04-15-2014 take 1 tablet by franco th once daily ASPIRIN EC 81 MG TBEC One tablet by mouth daily ASPIRIN [id number] Layla Silver PA-C Start: 04-15-2014 take 1 tablet by franco th once daily ASPIRIN 81 MG TABS One tablet by mouth daily ASPIRIN [id number] BernaDerik Car RN Start: 03-31-2014 End: 09-07-2017 take 1 tablet by mouth once daily Aspirin 81 MG tablet,chewable Discontinued 81 mg PO DAILY@0800 30 0 March 31, 2014 12:00am September 07, 2017 12:32pm benazepril hydrochloride 20 mg oral tablet (20 sources) Angiotensin Converting Enzyme Inhibitor Start: 12-30-2014 End: 02-11-2025 take 1 tablet by mouth once daily Benazepril 20 mg tablet Discontinued 0 .ROUTE .COMPLEX 90 3 January 01, 2025 10:33am February 11, 2025 1:45pm TAKE 1 TABLET BY MOUTH EVERY DAY biotin (5 sources) Start: 07-13-2016 End: 01-01-2017 take 1 tablet by mouth once daily BIOTIN FORTE TABS One tablet by mouth daily BIOTIN TABS [id number] Mitchel Ruth MD Start: 07-13-2016 take 1 tablet by franco th once daily BIOTIN FORTE TABS One tablet by mouth daily BIOTIN TABS [id number] Layla Silver PA-C calcium carbonate 500 mg alfonso wable tablet (2 sources) Start: 01-14-2025 End: 01-26-2025 calcium chloride 0.0014 meq/ ml / potassium chloride 0.004 meq/ml / sodium chloride 0.103 meq/ml / sodium lactate 0.028 meq/ml injectable solution (4 sources) Start: 01-12-2025 End: 01-26-2025 100 ml calcium gluconate 20 mg/ml injection (2 sources) Start: 01-12-2025 End: 01-26-2025 chlorhexidine gluconate 1.2 mg/ml mouthwash (6 sources) Start: 01-12-2025 End: 01-12-2025 Start: 01-11-2025 End: 01-13-2025 cholecalciferol 9.52 unt/ml / glucose 357 mg/ml oral gel (2 sources) Vitamin D Start: 01-12-2025 End: 01-26-2025 cranberry preparation 450 mg oral capsule (6 sources) Non-Standardized Food Allergenic Extract, Non-Standardized Plant Allergenic Extract Start: 2014 End: 12-30-2014 take 1 tablet by mouth once daily CRANBERRY CAPS One tablet by mouth daily CRANBERRY CAPS [id number] Layla Silver PA-C 24 hr dilTIAZem hydrochloride 120 mg extended release oral capsule (20 sources) Calcium Channel Clark Start: 04-07-2019 End: 01-09-2025 take 1 capsule by mouth every hour, then take 1 capsule by mouth once daily DilTIAZem Hydrochloride ER 120 mg/24 hours oral capsule, extended release Dose : 120 mg = 1 cap(s), Oral, qDay, # 30 cap(s), 0 Refill(s) Start Date: 04/07/19 Status: Ordered Start: 08-30-2017 End: 02-11-2025 take 1 capsule by mouth once daily Diltiazem Hcl 120 mg capsule,extended release 24hr Discontinued 0 .ROUTE .COMPLEX 90 3 July 23, 2024 9:30am February 11, 2025 1:45pm TAKE 1 CAPSULE BY MOUTH EVERY DAY Start: 04-15-2014 take 1 tablet by franco once daily DILTIAZEM HCL 120 MG TABS One tablet by mouth daily DILTIAZEM HCL [id number] Mitchel Ruth MD Start: 04-15-2014 take 1 tablet by franco twice daily DILTIAZEM HCL 120 MG TABS One tablet by mouth twice daily DILTIAZEM HCL [id number] Elvie Peña RN Start: 04-15-2014 take 2 tablets by mo [facility] once daily DILTIAZEM HCL 120 MG TABS Two tablets by mouth daily DILTIAZEM HCL [id number] Mitchel Ruth MD Start: 03-31-2014 End: 08-30-2017 take 1 capsule by mouth twice daily Diltiazem Hcl 120 MG capsule Discontinued 120 mg PO TWICE A DAY 60 0 March 31, 2014 12:00am August 30, 2017 8:54am docusate sodium 50 mg / sennosides, senior care 8.6 mg oral tablet (2 sources) Start: 01-12-2025 End: 01-26-2025 Drug or medicament (substance) (2 sources) End: 01-09-2025 0.4 ml enoxaparin sodium 100 mg/ml prefilled syringe (2 sources) Low Molecular Weight Heparin Start: 01-13-2025 End: 01-22-2025 fish oil (9 sources) Start: 07-13-2016 take 1 tablet by mouth once daily FISH OIL CAPS One tablet by mouth daily OMEGA-3 FATTY ACIDS CAPS [id number] Layla Silver PA-C Start: 2014 End: 01-03-2016 take 1 tablet by mouth once daily FISH OIL CAPS One tablet by mouth daily OMEGA-3 FATTY ACIDS CAPS [id number] Mitchel Ruth MD Start: 2014 take 1 tablet by franco th once daily FISH OIL CAPS One tablet by mouth daily OMEGA-3 FATTY ACIDS CAPS [id number] Layla Sliver PA-C furosemide 40 mg oral tablet (16 sources) Loop Diuretic Start: 01-22-2025 End: 02-24-2025 take 1 tablet by mouth once daily in the morning Furosemide (Lasix) 40 mg tablet Discontinued 40 mg PO EVERY MORNING 10 0 February 11, 2025 12:00am February 14, 2025 12:00am February 15, 2025 12:07am Start: 01-13-2025 End: 01-22-2025 glucagon (rdna) 1 mg injection (2 sources) Antihypoglycemic Agent Start: 01-12-2025 End: 01-26-2025 50 ml glucose 50 mg/ml injection (2 sources) Start: 01-12-2025 End: 01-26-2025 Green Tea capsule (6 sources) Start: 04-15-2020 Green Tea capsule Green Tea capsule, 1 cap, Oral, qDay, 0 Refill(s), 62.5 Start Date: 04/15/20 Status: Ordered GREEN TEA (CAMILLIA SINENSIS) CAPS (3 sources) Start: 12-30-2014 take 2 tablets by mouth once daily GREEN TEA CAPS Two tablets by mouth daily GREEN TEA (CAMILLIA SINENSIS) CAPS [id number] Mitchel Ruth MD 250 ml heparin sodium, porcine 100 unt/ml injection (6 sources) Unfractionated Heparin, Anti-coagulant Start: 01-09-2025 End: 01-12-2025 Start: 01-09-2025 End: 01-12-2025 hydroCHLOROthiazide 25 mg oral tablet (20 sources) Thiazide Diuretic Start: 07-02-2014 End: 02-11-2025 take 1 tablet by mouth once daily Hydrochlorothiazide 25 mg tablet Discontinued 25 mg PO DAILY 90 3 April 24, 2024 7:52am February 11, 2025 1:55pm insulin glargine 100 unt/ml injectable solution (2 sources) Insulin Analog Start: 01-13-2025 End: 01-13-2025 100 ml insulin, regular, human 1 unt/ml injection (2 sources) Insulin Start: 01-12-2025 End: 01-13-2025 1 ml ketorolac tromethamine 15 mg/ml cartridge (6 sources) Nonsteroidal Anti-inflammator y Drug, Cyclooxygenase Inhibitor Start: 01-14-2025 End: 01-15-2025 take 15 mg intravenously every six hours Start: 01-13-2025 End: 01-13-2025 lactobacillus (3 sources) Start: 04-23-2014 take 1 tablet by mouth once daily PROBIOTIC ACIDOPHILUS TABS One tablet by mouth daily LACTOBACILLUS [id number] Mitchel Ruth MD lidocaine 0.04 mg/mg medicated patch (2 sources) Antiarrhythmic, Amide Local Anesthetic Start: 01-12-2025 End: 01-26-2025 magnesium hydroxide 80 mg/ml oral suspension (2 sources) Start: 01-12-2025 End: 01-26-2025 take 30 mL by mouth every twenty-four hours as needed for constipation methocarbamol 500 mg oral tablet (2 sources) Muscle Relaxant Start: 01-14-2025 End: 01-26-2025 take 1000 mg by mouth every eight hours as needed 2 ml metoclopramide 5 mg/ml prefilled syringe (6 sources) Dopamine-2 Receptor Antagonist Start: 01-14-2025 End: 01-17-2025 metroNIDAZOLE 500 mg oral tablet (12 sources) Nitroimidazole Antimicrobial Start: 03-26-2014 End: 09-07-2017 take 1 tablet by mouth every eight hours Metronidazole 500 MG tablet Discontinued 500 mg PO EVERY 8 HOURS 10 0 March 31, 2014 12:00am September 07, 2017 12:33pm mirtazapine 15 mg disintegrating oral tablet (5 sources) Start: 01-18-2025 End: 02-25-2025 take 1 tablet by mouth once daily mirtazapine (Remeron Elizabeth-Tab) 15 MG disintegrating tablet Take 1 tablet (15 mg) by mouth Nightly. 01/26/2025 02/24/2025 Discontinued (Med list cleanup) 1 ml morphine sulfate 4 mg/ml cartridge (2 sources) Opioid Agonist Start: 01-14-2025 End: 01-14-2025 mupirocin 0.02 mg/mg topical ointment (6 sources) RNA Synthetase Inhibitor Antibacterial Start: 01-12-2025 End: 01-12-2025 Start: 01-11-2025 End: 01-15-2025 1 ml naloxone hydrochloride 0.4 mg/ml injection (2 sources) Opioid Antagonist Start: 01-12-2025 End: 01-26-2025 nitrofurantoin, macrocrystals 25 mg / nitrofurantoin, monohydrate 75 mg oral capsule (6 sources) Nitrofuran Antibacterial Start: 04-23-2014 End: 12-30-2014 take 1 tablet by mouth twice daily NITROFURANTOIN MACROCRYSTAL 100 MG CAPS One tablet by mouth twice daily NITROFURANTOIN MACROCRYSTAL [id number] Mitchel Ruth MD ondansetron 8 mg oral strip (12 sources) Serotonin-3 Receptor Antagonist Start: 04-15-2014 End: 04-23-2014 ZOFRAN 8 MG TABS as needed ONDANSETRON HCL [id number] Abi Car RN Start: 03-31-2014 End: 09-07-2017 take 1 tablet by mouth every eight hours as needed for nausea Ondansetron Hcl 8 MG tablet Discontinued 8 mg PO EVERY 8 HOURS NEEDED as needed for nausea, emesis 30 March 31, 2014 12:00am September 07, 2017 12:33pm oxyCODONE hydrochloride 5 mg oral tablet (12 sources) Opioid Agonist Start: 03-31-2014 End: 09-07-2017 take 5-10 mg by mouth every four hours as needed for pain Oxycodone 5 MG tablet Discontinued 5 - 10 mg PO EVERY 4 HOURS NEEDED as needed for Moderate Pain (pain scale 4-5) 30 0 March 31, 2014 12:00am September 07, 2017 12:33pm pantoprazole 40 mg delayed release oral tablet (6 sources) Proton Pump Inhibitor Start: 01-18-2025 End: 01-26-2025 Start: 01-10-2025 End: 01-15-2025 polyethylene glycol [id number] 60526 mg powder for oral solution (2 sources) Osmotic Laxative Start: 01-12-2025 End: 01-26-2025 prochlorperazine 5 mg/ml injectable solution (2 sources) Phenothiazine Start: 01-21-2025 End: 01-26-2025 take 5 mg intravenously every four hours as needed for nausea and vomiting 100 ml propofol 10 mg/ml injection (2 sources) General Anesthetic Start: 01-12-2025 End: 01-13-2025 rivaroxaban 10 mg oral tablet (6 sources) Factor Xa Inhibitor Start: 08-25-2016 End: 08-25-2016 XARELTO 10 MG TABS RIVAROXABAN [id number] Layla Umanzor RN rosuvastatin calcium 20 mg oral tablet (4 sources) HMG-CoA Reductase Inhibitor Start: 01-13-2025 End: 01-17-2025 Start: 01-09-2025 End: 01-12-2025 10 ml sodium bicarbonate 84 mg/ml injection (2 sources) Start: 01-12-2025 End: 01-12-2025 5 ml sodium chloride 9 mg/ml injection (6 sources) Start: 01-12-2025 End: 01-14-2025 Start: 01-12-2025 End: 01-24-2025 take 5-40 mL intraluminal route every eight hours Start: 01-12-2025 End: 01-24-2025 5 ml sugammadex 100 mg/ml injection (2 sources) Start: 01-12-2025 End: 01-12-2025 vancomycin 125 mg oral capsule (6 sources) Glycopeptide Antibacterial Start: 03-31-2014 End: 09-07-2017 take 1 capsule by mouth every six hours Vancomycin 125 MG capsule Discontinued 125 mg PO EVERY 6 HOURS 10 0 March 31, 2014 12:00am September 07, 2017 12:34pm VITAMIN E CAPS (5 sources) Start: 07-13-2016 End: 01-01-2017 take 1 tablet by mouth once daily VITAMIN E CAPS One tablet by mouth daily VITAMIN E CAPS [id number] Mitchel Ruth MD Start: 07-13-2016 take 1 tablet by franco th once daily VITAMIN E CAPS One tablet by mouth daily VITAMIN E CAPS [id number] Layla Silver PA-C (20 sources) Start: 01-16-2025 End: 01-17-2025 Start: 01-13-2025 End: 01-13-2025 Start: 01-12-2025 End: 01-14-2025 take 2000 mg intravenously every eight hours Start: 01-12-2025 End: 01-12-2025 Start: 01-12-2025 End: 01-26-2025 take 5 mg by mouth every four hours as needed for pain [Order 1 Start] Name: oxyCODONE (Roxicodone) immediate release tablet 5 mg Signed Summary: 5 mg, Oral, Every 4 hours PRN, moderate pain (4-6), Starting on Sun01/12/25 at 1325, [facility] [Order 1 End] [Order 2 Start] Name: oxyCODONE (Roxicodone) immediate release tablet 10 mg Signed Summary: 10 mg, Oral, Every 4 hours PRN, severe pain (7-10), Starting on Sun01/12/25 at 1325, [facility] [Order 2 End] Start: 01-12-2025 End: 01-12-2025 Start: 01-12-2025 End: 01-15-2025 Start: 01-12-2025 End: 01-26-2025 [Order 1 Start] Name: milka ium sulfate IVPB premix 2,000 mg Signed Summary: 2,000 mg, IntraVENous, at 25 mL/hr, Administer over 2 Hours, As needed, Per Magnesium Replacement Protocol, Starting on Sun01/12/25 at 1307, [facility] On Unit, Mg Lab Replacement Action 1.4-1.6 2 gram IVPB x 1 doses 1.0-1.3 4 gram IVPB x 1 doses Less than 1.0 CALL PHYSICIAN and 4 gram IVPB x 1 doses Infuse at 1 gram/hr. Repeat Mag level next AM. Not for use in Patients with CrCl less than 30 mL/min. [Order 1 End] [Order 2 Start] Name: magnesium sulfate IVPB 4,000 mg Signed Summary: 4,000 mg, IntraVENous, at 25 mL/hr, Administer over 4 Hours, As needed, Per Magnesium Replacement Protocol, Starting on Sun01/12/25 at 1307, [facility], Mg Lab Replacement Action 1.4-1.6 2 gram IVPB x 1 doses 1.0-1.3 4 gram IVPB x 1 doses Less than 1.0 CALL PHYSICIAN and 4 gram IVPB x 1 doses Infuse at 1 gram/hr. Repeat Mag level next AM. Not for use in Patients with CrCl less than 30 mL/min. [Order 2 End] Start: 01-12-2025 End: 01-26-2025 [Order 1 Start] Name: carmella ium chloride IVPB 20 mEq Signed Summary: 20 mEq, IntraVENous, at 50 mL/hr, Administer over 1 Hours, 3 times daily PRN, hypokalemia, Starting on Sun01/12/25 at 1307, Recovery & On Unit, For Central Line Use Only K Lab Replacement Action 3.1-3.5 20 mEq IVPB x 2 doses 2.7-3.0 20 mEq IVPB x 2 doses (40 mEq Total) less than 2.7 CALL PROVIDER and administer 20 mEq IVPB x 2 doses (40 mEq Total) Infuse at 20 mEq/hr Repeat Potassium lab 1 hour after final administration. Protocol not for use in Patients with CrCl less than 30mL/min For central line administration only. [Order 1 End] [Order 2 Start] Name: Potassium Chloride in NaCl IVPB 20 mEq Signed Summary: 20 mEq, IntraVENous, Administer over 2 Hours, Every 8 hours PRN, hypokalemia, Starting on Sun01/12/25 at 1307, Recovery & On Unit, For Peripheral Line Use K Lab Replacement Action 3.1-3.5 20 mEq IVPB x 1 doses 2.7-3.0 40 mEq IVPB x 1 doses less than 2.7 CALL PROVIDER and administer 40 mEq IVPB x 1 dose Infuse at 10 mEq/hr Repeat Potassium lab 1 hour after administration. Protocol not for use in Patients with CrCl less than 30mL/min [Order 2 End] [Order 3 Start] Name: potassium chloride 40 mEq in NS 500 mL IVPB (premix) Signed Summary: 40 mEq, IntraVENous, at 125 mL/hr, Administer over 4 Hours, 3 times daily PRN, hypokalemia, Starting on Sun01/12/25 at 1307, Recovery & On Unit, For Peripheral Line Use. K Lab Replacement Action 3.1-3.5 20 mEq IVPB x 1 doses 2.7-3.0 40 mEq IVPB x 1 doses less than 2.7 CALL PROVIDER and administer 40 mEq IVPB x 1 dose Infuse at 10 mEq/hr Repeat Potassium lab 1 hour after administration. Protocol not for use in Patients with CrCl less than 30mL/min [Order 3 End] Start: 01-11-2025 End: 01-11-2025 (6 sources) Start: 01-13-2025 End: 01-24-2025 Start: 01-12-2025 End: 01-12-2025 Start: 01-11-2025 End: 01-11-2025 (2 sources) Start: 01-12-2025 End: 01-14-2025 (2 sources) Start: 01-12-2025 End: 01-26-2025 Problems Active Problems Problem Classification Problem Date Documented Date Episodic/Chronic Abdominal hernia (7 sources) Hiatal hernia 01-19-2021 Episodic Acute myocardial infarction (20 sources) Myocardial infarction; Translations: [Non-ST elevation (NSTEMI) myocardial infarction] Onset: 5 01-07-2025 Chronic Anxiety disorders (5 sources) Anxiety; Translations: [Anxiety disorder, unspecified] Onset: 5 01-23-2025 Chronic Cardiac dysrhythmias (20 sources) Atrial fibrillation; Translations: [Unspecified atrial fibrillation] Onset: 4 04-15-2014 Chronic Coronary atherosclerosis and other heart disease (12 sources) Multi vessel coronary artery disease; Translations: [Atherosclerotic heart disease of tanana coronary artery without angina pectoris] Onset: 5 01-11-2025 Chronic Coronary atherosclerosis and other heart disease (2 sources) Presence of aortocoronary bypass graft; Translations: [Presence of aortocoronary bypass graft] Onset: Episodic Deficiency and other anemia (2 sources) Anemia; Translations: [Anemia, unspecified] 02-11-2025 Episodic Deficiency and other anemia (1 source) Anemia, unspecified; Translations: [Anemia, unspecified] Onset: Episodic Diabetes mellitus without complication (1 source) Hyperglycemia 10-19-2023 Episodic Diseases of mouth; excluding dental (7 sources) Xerostomia 04-07-2019 Episodic Disorders of lipid metabolism (2 sources) Hypertriglyceridemia 09-11-2023 Chronic Esophageal disorders (15 sources) Gastro-esophageal reflux disease with esophagitis; Translations: [Gastroesophageal reflux disease] Onset: 5 07-19-2021 Chronic Essential hypertension (20 sources) Hypertensive disorder; Translations: [Benign hypertension] Onset: 4 04-23-2014 Chronic Fluid and electrolyte disorders (20 sources) Hypokalemia; Translations: [Disorder of electrolytes] Onset: 7 08-30-2016 Episodic Intestinal infection (6 sources) Clostridium difficile colitis; Translations: [Enterocolitis due to Clostridium difficile, not specified as recurrent] 07-02-2019 Episodic Malaise and fatigue (9 sources) Fatigue; Translations: [Other fatigue] Onset: 4 04-23-2014 Episodic Neoplasms of unspecified nature or uncertain behavior (4 sources) Neoplastic disease of uncertain behavior 07-19-2021 Episodic Osteoporosis (4 sources) Osteoporosis 07-19-2021 Chronic Other and ill-defined heart disease (3 sources) Cardiomegaly; Translations: [Cardiomegaly] Onset: 4 04-15-2014 Chronic Other and ill-defined heart disease (6 sources) Right atrial enlargement; Translations: [Cardiomegaly] 09-07-2017 Chronic Other lower respiratory disease (10 sources) Dyspnea; Translations: [Shortness of breath] Onset: 4 04-23-2014 Episodic Other lower respiratory disease (1 source) Shortness of breath; Translations: [Shortness of breath] Onset: 5 Episodic Other nutritional; endocrine; and metabolic disorders (6 sources) Body mass index 25-29 - overweight; Translations: [Overweight] 03-26-2014 Episodic Other upper respiratory disease (7 sources) Chronic rhinitis 04-07-2019 Chronic Comment on above: montelucast only in the fall Pleurisy; pneumothorax; pulmonary collapse (3 sources) Pleural effusion; Translations: [Pleural effusion, not elsewhere classified] Onset: 5 02-11-2025 Episodic Retinal detachments; defects; vascular occlusion; and retinopathy (2 sources) 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 Unclassified (16 sources) Patient encounter status 06-06-2022 Unclassified (2 sources) Hypercoagulable state due to atrial fibrillation 09-11-2023 Unclassified (7 sources) NSTEMI, initial episode of care; Translations: [I21.4 - Non-ST elevation (NSTEMI) myocardial infarction] Unclassified (1 source) Status post four vessel coronary artery bypass Unclassified (1 source) Z95.1 - Presence of aortocoronary bypass graft,I21.4 - Non-ST elevation (NSTEMI) myocardial infarction Past or Other Problems Problem Classification Problem Date Documented Da te Episodic/Chronic Other nutritional; endocrine; and metabolic disorders (6 sources) Body mass index (BMI) 26.0-26.9, adult; Translations: [Body mass index (BMI) 25.0-25.9, adult] Onset: 2014 12-30-2014 Episodic Unclassified (3 sources) FH: Hypertension; Translations: [Family history of ischemic heart disease and other diseases of the circulatory system] 04-23-2014 Episodic Results Test Name Value Interpretation Reference Range Facility Absolute lymphocyte countOrd ered By: Noe Nguyễn on 02-11-2025 Lymphocytes Auto (Unsp spec) [#/Vol] 1.84 10*3/uL 0.83-4.51 [facility] Absolute neutrophil countOrd ered By: Noe Nguyễn on 02-11-2025 Neutrophils (Bld) [#/Vol] 3.4 10*3/uL 2.0-7.7 [facility] Anion gap in Serum or Plasma Ordered By: Noe Nguyễn on 02-11-2025 Anion gap [Moles/Vol] 11 mmol/L 5- [facility] Automated lymphocyte count a s percentage of total leukocytesOrdered By: oNe Nguyễn on 02-11-2025 Lymphocytes/100 WBC Auto (Unsp spec) 31.4 % - [facility] BUN/creatinine ratioOrdered By: Noe Nguyễn on 02-11-2025 Urea nitrogen/Creatinine [Mass ratio] 20.2 mg/mg High 10- [facility] Basophil percentageOrdered B y: Noe Nguyễn on 02-11-2025 Basophils/100 WBC (Bld) 0.5 % 0-1 [facility] Bilirubin, totalOrdered By: Noe Nguyễn on 02-11-2025 Bilirubin [Mass/Vol] 0.26 mg/dL 0.00-1.30 [facility] CBC W/Diff, Automatedon Absolute Lymph 1.84 X10 3/uL Normal 0.83-4.51 [facility] Comment on above: Performed By: #### L 500.4050, L503.7505, L500.4100, L100.0100 ####[facility] [address] [place], [address] Absolute Neut 3.4 X10 3/uL Normal 2.0-7.7 [facility] Comment on above: Performed By: #### L 500.4050, L503.7505, L500.4100, L100.0100 ####[facility] [address] [place], [address] Basophils/100 WBC (Bld) 0.5 % Normal 0-1 [facility] Comment on above: Performed By: #### L 500.4050, L503.7505, L500.4100, L100.0100 ####[facility] [address] [place], [address] Eosinophils/100 WBC (Bld) 2.9 % Normal 0-5 [facility] Comment on above: Performed By: #### L 500.4050, L503.7505, L500.4100, L100.0100 ####[facility] [address] [place], [address] Erythrocyte distribution width (RBC) [Ratio] 15.2 % High 11.6-14.6 [facility] Comment on above: Performed By: #### L 500.4050, L503.7505, L500.4100, L100.0100 ####[facility] [address] [place], [address] Hematocrit (Bld) [Volume fraction] 30.4 % Low 37-47 [facility] Comment on above: Performed By: #### L 500.4050, L503.7505, L500.4100, L100.0100 ####[facility] [address] [place], [address] Hemoglobin (Bld) [Mass/Vol] 9.4 g/dL Low 12.0-15.0 [facility] Comment on above: Performed By: #### L 500.4050, L503.7505, L500.4100, L100.0100 ####[facility] [address] [place], [address] IG% 0.300 Normal 0.0-0.9 [facility] Comment on above: Result Comment: IG% - Immature Granulocytes (promyelocytes, myelocytes and metamyelocytes) > 1% indicates that a LEFT SHIFT is Present. Performed By: #### L 500.4050, L503.7505, L500.4100, L100.0100 ####[facility] [address] [place], [address] Lymphocytes/100 WBC (Bld) 31.4 % Normal 19-41 [facility] Comment on above: Performed By: #### L 500.4050, L503.7505, L500.4100, L100.0100 ####[facility] [address] [place], [address] MCH (RBC) [Entitic mass] 28.8 pg Normal 27.0-32.0 [facility] Comment on above: Performed By: #### L 500.4050, L503.7505, L500.4100, L100.0100 ####[facility] [address] [place], [address] MCHC (RBC) [Mass/Vol] 30.9 g/dL Low 32-36 [facility] Comment on above: Performed By: #### L 500.4050, L503.7505, L500.4100, L100.0100 ####[facility] [address] [place], [address] MCV (RBC) [Entitic vol] 93.3 fL Normal 81-99 [facility] Comment on above: Performed By: #### L 500.4050, L503.7505, L500.4100, L100.0100 ####[facility] [address] [place], [address] Monocytes/100 WBC (Bld) 7.7 % Normal 0-10 [facility] Comment on above: Performed By: #### L 500.4050, L503.7505, L500.4100, L100.0100 ####[facility] [address] [place], [address] Neutrophils/100 WBC (Bld) 57.2 % Normal 47-70 [facility] Comment on above: Performed By: #### L 500.4050, L503.7505, L500.4100, L100.0100 ####[facility] [address] [place], [address] Nucleated RBC (Bld) [#/Vol] 0 10*3/uL Normal 0-5 [facility] Comment on above: Performed By: #### L 500.4050, L503.7505, L500.4100, L100.0100 ####[facility] [address] [place], [address] Platelet mean volume (Bld) [Entitic vol] 10.5 fL Normal 6.2-12.0 [facility] Comment on above: Performed By: #### L 500.4050, L503.7505, L500.4100, L100.0100 ####[facility] [address] [place], [address] Platelets (Bld) [#/Vol] 227 10*3/uL Normal 150-450 [facility] Comment on above: Performed By: #### L 500.4050, L503.7505, L500.4100, L100.0100 ####[facility] [address] [place], [address] RBC (Bld) [#/Vol] 3.26 10*6/uL Low 4.2-5.4 [facility] Comment on above: Performed By: #### L 500.4050, L503.7505, L500.4100, L100.0100 ####[facility] [address] [place], [address] RDW SD 51.9 fl High 35.1-43.9 [facility] Comment on above: Performed By: #### L 500.4050, L503.7505, L500.4100, L100.0100 ####[facility] [address] [place], [address] WBC (Bld) [#/Vol] 5.9 10*3/uL Normal 4.4-11.0 [facility] Comment on above: Performed By: #### L 500.4050, L503.7505, L500.4100, L100.0100 ####[facility] [address] [place], [address] Calculated very low density lipoprotein (VLDL) cholesterol measurementOrdered By: Noe Nguyễn on 02-11-2025 Calculated very low density lipoprotein (VLDL) cholesterol measurement 26 mg/dL 5-40 [facility] Carbon dioxide, total [Moles /volume] in Central venous bloodOrdered By: Noe Nguyễn on 02-11-2025 CO2 [Moles/Vol] 20.2 mmol/L Low 21.0-32.0 [facility] Cardiology Visit Reporton Cardiology Visit Report [facility] [address] [place] [address] OFFICE VISIT Date of Service: 02/11/25 MR#: [id number] Acct: [id number] Name: RITIKA SANTANA Rep #: [id number] : 1945 Provider: SHAWNEE Bright Age/Sex: 79/F Location[place] [facility] Status: Signed Agree with assessment and plan as outlined. HPI HPI History of Present Illness Details: Ritika Santana is a 79-year-old female who presents to the office today for hospital follow-up. She has a history of paroxysmal atrial fibrillation and hypertension. Patient called into our office 01/06/2025 with concerns of dyspnea on exertion, back pain that radiated down her arms and neck pain. She came into the office the following day 01/07/2025 and upon evaluation in the office, it was recommended that she present to the emergency department for concerns of NSTEMI. Her troponins were noted to be elevated; however, were downtrending. EKG demonstrated normal sinus rhythm but subtle T wave inversions in the inferior leads. Her echocardiogram demonstrated ejection fraction of 45-50%. She underwent left heart catheterization that demonstrated severe multivessel disease and she was transferred to [facility] for surgical consultation. Patient underwent coronary artery bypass graft x 4 with left atrial appendage clip at [facility] 01/12/2025. [place] to the LAD, SVG to the PDA, SVG to OM1, SVG to the diagonal. Echocardiogram 01/12/2025 demonstrated normal left ventricular systolic function, and normal right ventricular systolic function with mild to moderate mitral valve regurgitation. She was discharged on 01/26/2025 to a [facility] for [facility]hab. Cardiac medications at discharge consisted of apixaban 5 mg twice daily, atorvastatin 20 mg daily, clopidogrel 75 mg daily, furosemide 40 mg daily x 5 days, metoprolol tartrate 25 mg twice daily, potassium 20 mEq x 5 days. Patient returned home and was discharged from the nursing facility on hydroxyzine, clopidogrel 75 mg daily, Eliquis 5 mg twice daily, atorvastatin 20 mg daily, metoprolol tartrate 25 mg twice daily, potassium supplement, hydrochlorothiazide 25 mg daily. She was uncertain of which medications to take and reports she has only been taking her Eliquis twice a day and metoprolol 25 mg twice a day. Upon presentation today, patient reports weakness secondary to hospitalization. Her weakness has improved with rehab. She finds herself SOB with panic attacks. She can walk throughout her house without SOB; however, longer distance, she experiences SOB and needs to rest. She denies orthopnea. Further ROS below Intake Vital Signs 01/09/25 16:59 02/11/25 07:44 Height 5 ft 3 in 5 ft 3 in Weight: 143 lb BMI 25.3 BP 116/72 Blood Pressure Location Lt brachial Position Sitting Respiration 18 Pulse 58 L Pulse Source Monitor Pulse Oximetry (%) 98 Intake Visit Reasons: S/P [facility] 01/12 Medical Psychotherapist Required: No Is patient in pain?: No Allergies ciprofloxacin (From Cipro) Adverse Reaction (Verified 02/11/25 12:54) Other ciprofloxacin HCl (From Cipro) Adverse Reaction (Verified 02/11/25 12:54) Other Medications ???Medication ???Instructions ???Recorded ???Confirmed ???Type cetirizine 10 mg capsule 10 mg PO DAILY allergies 03/29/14 02/11/25 History esomeprazole magnesium 20 mg 20 mg PO DAILY heartburn 10/24/23 02/11/25 History capsule,delayed release (Nexium) apixaban 5 mg tablet (Eliquis) 5 mg PO BID afib #180 tabs 11/04/2 5 02/11/25 Rx Bacillus coagulans 10 billion cell 10 cell PO DAILY probiotic 01/0702/11/25 History capsule,delayed release (Probiotic (B. coagulans)) latanoprost (PF) 0.005 % eye drops 1 drp ophthalmic (eye) QDAY ocul ar 01/07/25 02/11/25 History pressure potassium chloride 20 mEq 20 meq PO DAILY #90 TABLETS 02/11/25 Rx tablet,extended release atorvastatin 20 mg tablet (Lipitor) 20 mg PO QHS #90 tabs 02/11/25 02/11/25 Rx clopidogrel 75 mg tablet 75 mg PO QDAY #90 tabs 02/11/25 Rx furosemide 40 mg tablet (Lasix) 40 mg PO QAM #10 tabs 02/11/2510/07 Rx hydrochlorothiazide 25 mg tablet 25 mg PO DAILY #90 TABLETS 5 02/11/25 Rx hydroxyzine HCl 25 mg tablet 25 mg PO BID PRN 02/11/25 02/11/25 History metoprolol tartrate 25 mg tablet 12.5 mg (1/2 x 25 mg) PO BID #45 0 02/11/25 02/11/25 Rx tabs Ejection fraction %: 55 Have you fallen in the past year?: No PFSH Medical History (Updated 02/11/25 @ 14:33 by SHAWNEE Bright) Paroxysmal atrial fibrillation Macular degeneration GERD (gastroesophageal reflux disease) Essential hypertension Right atrial enlargement Atrial fibrillation SOB (shortness of breath) Fatigue Hypokalemia Surgical History (Updated 02/11/25 @ 14:24 by SHAWNEE Bright) History of basal dionte (more content not included)... Normal [facility] Chest PA and Lateralon 02-11 Chest PA and Lateral [facility] [address] [place], [place] [id number] Chest PA and Lateral MR#: [id number] Acct: [id number] Name: ESTHERRITIKA K Rep #: [id number] : 1945 F 79 From: Nba Suarez PCP: ERIN GRANT Status: REG CLI Study: Chest PA and Lateral Date of Exam: 02/11/25 Exam# [id number] Ordering Dr: Demiter,Noe PA PROCEDURE: CHEST PA AND LATERAL 02/11/2025 REASON FOR EXAM: ABNORMAL LUNG SOUNDS, HX PLEURAL EFFUSION TECHNIQUE: CHEST PA AND LATERAL COMPARISON: PA and lateral chest of 01/07/2025. RAD/Chest PA and Lateral IMPRESSION: The lateral view is limited by significant patient motion. Generalized osteopenia with significant kyphosis again noted. No interval osseous change is appreciated. Interval sternotomy. Small right and outkx-tw-gynrvjqd left pleural effusions are now seen. No pulmonary edema is identified. No focal infiltrate is seen. No pneumothorax is evident. Borderline cardiomegaly, not clearly changed since the prior study. Reading Location: [place] [address] CC: ERIN GRANT; SHAWNEE Bright Almond Paste Molder: Signed Normal [facility] Chloride assayOrdered By: Christal Nguyễn on 02-11-2025 Chloride [Moles/Vol] 111 mmol/L High 98-108 [facility] Comprehensive Metabolic Prof ilon 02-11-2025 Albumin [Mass/Vol] 3.8 g/dL Normal 3.4-4.8 [facility] Comment on above: Performed By: #### L 500.4050, L503.7505, L500.4100, L100.0100 ####[facility] [address] [place], [address] Albumin/Globulin [Mass ratio] 1.3 {ratio} Normal 0.9-2.4 [facility] Comment on above: Performed By: #### L 500.4050, L503.7505, L500.4100, L100.0100 ####[facility] [address] [place], [address] ALK PHOS 104 U/L Normal 35-104 [facility] Comment on above: Performed By: #### L 500.4050, L503.7505, L500.4100, L100.0100 ####[facility] [address] [place], [address] ALT [Catalytic activity/Vol] 24 U/L Normal <=34 [facility] Comment on above: Performed By: #### L 500.4050, L503.7505, L500.4100, L100.0100 ####[facility] [address] [place], [address] AST [Catalytic activity/Vol] 28 U/L Normal <=31 [facility] Comment on above: Performed By: #### L 500.4050, L503.7505, L500.4100, L100.0100 ####[facility] [address] [place], [address] Bilirubin [Mass/Vol] 0.26 mg/dL Normal 0.00-1.30 [facility] Comment on above: Performed By: #### L 500.4050, L503.7505, L500.4100, L100.0100 ####[facility] [address] [place], [address] BUN/CRE 20.2 RATIO High 10-20 [facility] Comment on above: Performed By: #### L 500.4050, L503.7505, L500.4100, L100.0100 ####[facility] [address] [place], [address] Calcium [Mass/Vol] 9.2 mg/dL Normal 7.6-11.0 [facility] Comment on above: Performed By: #### L 500.4050, L503.7505, L500.4100, L100.0100 ####[facility] [address] [place], [address] Chloride [Moles/Vol] 111 mmol/L High 98-108 [facility] Comment on above: Performed By: #### L 500.4050, L503.7505, L500.4100, L100.0100 ####[facility] [address] [place], [address] CO2 [Moles/Vol] 20.2 mmol/L Low 21.0-32.0 [facility] Comment on above: Performed By: #### L 500.4050, L503.7505, L500.4100, L100.0100 ####[facility] [address] [place], [address] Creatinine [Mass/Vol] 0.78 mg/dL Normal 0.70-1.20 [facility] Comment on above: Performed By: #### L 500.4050, L503.7505, L500.4100, L100.0100 ####[facility] [address] [place], [address] GAP 11 Normal 5-15 [facility] Comment on above: Performed By: #### L 500.4050, L503.7505, L500.4100, L100.0100 ####[facility] [address] [place], [address] GFR/1.73 sq M.predicted among non-blacks MDRD (S/P/Bld) [Vol rate/Area] 77 mL/min/{1.73_m2} Normal >60 [facility] Comment on above: Result Comment: mL/m in/1.73m2 CKD-EPI Creatinine Equation (2020) Performed By: #### L 500.4050, L503.7505, L500.4100, L100.0100 ####[facility] [address] [place], [address] Globulin (S) [Mass/Vol] 3.0 g/dL Normal 2.2-4.2 [facility] Comment on above: Performed By: #### L 500.4050, L503.7505, L500.4100, L100.0100 ####[facility] [address] [place], [address] Glucose [Mass/Vol] 106 mg/dL High 70-99 [facility] Comment on above: Performed By: #### L 500.4050, L503.7505, L500.4100, L100.0100 ####[facility] [address] [place], [address] Potassium [Moles/Vol] 4.4 mmol/L Normal 3.3-5.1 [facility] Comment on above: Performed By: #### L 500.4050, L503.7505, L500.4100, L100.0100 ####[facility] [address] [place], [address] Sodium [Moles/Vol] 143 mmol/L Normal 133-145 [facility] Comment on above: Performed By: #### L 500.4050, L503.7505, L500.4100, L100.0100 ####[facility] [address] [place], [address] T PROT 6.8 g/dL Normal 5.9-8.4 [facility] Comment on above: Performed By: #### L 500.4050, L503.7505, L500.4100, L100.0100 ####[facility] [address] [place], [address] Urea nitrogen [Mass/Vol] 16 mg/dL Normal 4-19 [facility] Comment on above: Performed By: #### L 500.4050, L503.7505, L500.4100, L100.0100 ####[facility] [address] [place], [address] Eosinophil percentageOrdered By: Noe Nguyễn on 02-11-2025 Eosinophils/100 WBC (Bld) 2.9 % 0-5 [facility] Erythrocyte distribution wid th ratioOrdered By: Noe Nguyễn on 02-11-2025 Erythrocyte distribution width (RBC) [Ratio] 15.2 % High 11.6-14.6 [facility] Erythrocyte distribution wid th standard deviationOrdered By: Noe Nguyễn on 02-11-2025 Erythrocyte distribution width (RBC) [Ratio] 51.9 fl High 35.1-43.9 [facility] Glomerular filtration rate ( GFR) estimation/1.73 sq m using serum, plasma, or whole bOrdered By: Noe Nguyễn on 02-11-2025 GFR/1.73 sq M.predicted among non-blacks MDRD (S/P/Bld) [Vol rate/Area] 77 mL/min/{1.73_m2} >60 [facility] Comment on above: mL/min/1.73m2 CKD-EP I Creatinine Equation (2020) Hematocrit Auto (Bld) [Volum e fraction]Ordered By: Noe Nguyễn on 02-11-2025 Hematocrit (Bld) [Volume fraction] 30.4 % Low 37-47 [facility] Hemoglobin measurementOrdere d By: Noe Nguyễn on 02-11-2025 Hemoglobin (Bld) [Mass/Vol] 9.4 g/dL Low 12.0-15.0 [facility] [facility] Immature granulocytes/100 WB C Auto (Bld)Ordered By: Noe Nguyễn on 02-11-2025 Immature granulocytes/100 WBC (Bld) 0.300 % 0.0-0.9 [facility] Comment on above: IG% - Immature Granu locytes (promyelocytes, myelocytes and metamyelocytes) > 1% indicates that a LEFT SHIFT is Present. L503.7505on 02-11-2025 Natriuretic peptide B (Bld) [Mass/Vol] 4717 pg/mL High <=1800 [facility] Comment on above: Result Comment: Hear t Failure Unlikely: < 300 pg/mL Heart Failure Likely < 50 Years: > 450 pg/mL 50-75 Years: > 900 pg/mL >75 Years: > 1800 pg/mL Performed By: #### L 500.4050, L503.7505, L500.4100, L100.0100 ####[facility] [address] [place], [address] LDL calc ser/plasOrdered By: Noe Nguyễn on 02-11-2025 Cholesterol in LDL [Mass/Vol] 53 mg/dL [facility] Comment on above: Orinbudiyf=462-167 m g/dL & Higher Wars=412 mg/dL or greater Laboratory - Chemistry and C hemistry - challengeOrdered By: Noe Nguyễn on 02-11-2025 AST [Catalytic activity/Vol] 28 U/L <32 [facility] Lipid Profileon 02-11-2025 CHOL:HDL 3.21 Normal [facility] Comment on above: Performed By: #### L 500.4050, L503.7505, L500.4100, L100.0100 ####[facility] [address] [place], [address] Cholesterol [Mass/Vol] 114 mg/dL Normal <=200 [facility] Comment on above: Result Comment: Chol esterol level, Desirable <200 mg/dL Borderline high cholesterol 200-239 mg/dL High cholesterol >=240 mg/dL Recommendations of the NCEP Adult Treatment Panel for the following risk-cutoff thresholds for the [place] population. Performed By: #### L 500.4050, L503.7505, L500.4100, L100.0100 ####[facility] [address] [place], [address] Cholesterol in HDL [Mass/Vol] 36 mg/dL Low [facility] Comment on above: Result Comment: Miguelina onal Cholesterol Education Program (NCEP) guidelines: <40 mg/dL: Low HDL-cholesterol (major risk factor for CHD) >= 60 mg/dL: High HDL-cholesterol (negative risk factor for CHD) HDL-cholesterol is affected by a number of factors, e.g. smoking, exercise, hormones, sex and age. Performed By: #### L 500.4050, L503.7505, L500.4100, L100.0100 ####[facility] [address] [place], [address] Cholesterol in LDL [Mass/Vol] 53 mg/dL Normal [facility] Comment on above: Result Comment: Bord ojwvkx=244-010 mg/dL Higher Cqmo=066 mg/dL or greater Performed By: #### L 500.4050, L503.7505, L500.4100, L100.0100 ####[facility] [address] [place], [address] Cholesterol in VLDL [Mass/Vol] 26 mg/dL Normal 5-40 [facility] Comment on above: Performed By: #### L 500.4050, L503.7505, L500.4100, L100.0100 ####[facility] [address] [place], [address] Triglyceride [Mass/Vol] 129 mg/dL Normal [facility] Comment on above: Result Comment: The drugs N-Acetylcysteine and Metamizole may falsely depress this assay. Normal range: <150 mg/dL Borderline High: 150-199 mg/dL High: 200-499 mg/dL Very High: >500 mg/dL Performed By: #### L 500.4050, L503.7505, L500.4100, L100.0100 ####[facility] [address] [place], [address] MCV (mean corpuscular volume ) determinationOrdered By: Noe Nguyễn on 02-11-2025 MCV (RBC) [Entitic vol] 93.3 fL 81-99 [facility] Mean corpuscular hemoglobin (MCH) determinationOrdered By: Noe Nguyễn on 02-11-2025 MCH (RBC) [Entitic mass] 28.8 pg 27.0-32.0 [facility] Mean corpuscular hemoglobin concentration (MCHC) determinationOrdered By: Noe Demspike on 02-11-2025 MCHC (RBC) [Mass/Vol] 30.9 g/dL Low 32-36 [facility] Mean platelet volume determi nationOrdered By: Noe Nguyễn on 02-11-2025 Platelet mean volume (Bld) [Entitic vol] 10.5 fL 6.2-12.0 [facility] Monocyte percentageOrdered B y: Noe Nguyễn on 02-11-2025 Monocytes/100 WBC (Bld) 7.7 % 0-10 [facility] Natriuretic peptide.B prohor ami N-Terminal [Mass/volume] in Serum or PlasmaOrdered By: Noe Nguyễn on 02-11-2025 Natriuretic peptide.B prohormone N-Terminal [Mass/Vol] 4717 pg/mL High <1800 [facility] Comment on above: Heart Failure Unlike ly: < 300 pg/mLHeart Failure Likely< 50 Years: > 450 pg/mL50-75 Years: > 900 pg/mL>75 Years: > 1800 pg/mL Neutrophil percentageOrdered By: Noe Nguyễn on 02-11-2025 Neutrophils/100 WBC (Bld) 57.2 % 47-70 [facility] Nucleated red blood cell per centageOrdered By: Noe Nguyễn on 02-11-2025 Nucleated RBC/100 WBC (Bld) [Ratio] 0 % 0-5 [facility] Platelet countOrdered By: Christal Nguyễn on 02-11-2025 Platelets (Bld) [#/Vol] 227 10*3/uL 150-450 [facility] Potassium measurement (mass/ volume)Ordered By: Noe Nguyễn on 02-11-2025 Potassium (Unsp spec) [Mass/Vol] 4.4 mmol/L 3.3-5.1 [facility] RBC Auto (Bld) [#/Vol]Ordere d By: Noe Nguyễn on 02-11-2025 RBC (Bld) [#/Vol] 3.26 10*6/uL Low 4.2-5.4 [facility] Screening total cholesterol/ high density lipoprotein (HDL) cholesterol ratioOrdered By: Noe Nguyễn on 02-11-2025 Cholesterol.total/Choles terol in HDL [Mass ratio] 3.21 {ratio} [facility] Serum creatinine measurement (mass/volume)Ordered By: Noe Nguyễn on 02-11-2025 Creatinine [Mass/Vol] 0.78 mg/dL 0.70-1.20 [facility] Serum globulin measurementOr dered By: Noe Nguyễn on 02-11-2025 Globulin (S) [Mass/Vol] 3.0 g/dL 2.2-4.2 [facility] Serum glucose measurement (m ass/volume)Ordered By: Noe Gopi on 02-11-2025 Glucose [Mass/Vol] 106 mg/dL High 70-99 [facility] Serum or plasma alanine pollock otransferase (ALT) measurementOrdered By: [facility] Gopi on 02-11-2025 ALT [Catalytic activity/Vol] 24 U/L <35 [facility] Serum or plasma albumin valerio urement (mass/volume)Ordered By: [facility] Gopi on 02-11-2025 Albumin [Mass/Vol] 3.8 g/dL 3.4-4.8 [facility] Serum or plasma albumin/glob ulin mass ratioOrdered By: [facility]25 Albumin/Globulin [Mass ratio] 1.3 {ratio} 0.9-2.4 [facility] Serum or plasma alkaline edilia sphatase measurementOrdered By: [facility] on 02-11-2025 ALP [Catalytic activity/Vol] 104 U/L 35-104 [facility] Serum or plasma calcium valerio urement (mass/volume)Ordered By: [facility] on 02-11-2025 Calcium [Mass/Vol] 9.2 mg/dL 7.6-11.0 [facility] Serum or plasma cholesterol in HDL measurement (mass/volume)Ordered By: Noe Gopi on 02-11-2025 Cholesterol in HDL [Mass/Vol] 36 mg/dL Low >40 [facility] Comment on above: National Cholesterol Education Program (NCEP) guidelines:<40 mg/dL: Low HDL-cholesterol (major risk factor for CHD)>= 60 mg/dL: High HDL-cholesterol (negative risk factor for CHD)HDL-cholesterol is affected by a number of factors, e.g. smoking, exercise, hormones, sex and age. Serum or plasma cholesterol measurement (mass/volume)Ordered By: Noe Gopi on 02-11-2025 Cholesterol [Mass/Vol] 114 mg/dL <201 [facility] Comment on above: Cholesterol level, D esirable <200 mg/dLBorderline high cholesterol 200-239 mg/dLHigh cholesterol >=240 mg/dLRecommendations of the NCEP Adult Treatment Panel for the following risk-cutoff thresholds for the [place] population. Serum or plasma urea nitroge n measurement (mass/volume)Ordered By: Noe Nguyễn on 02-11-2025 Urea nitrogen [Mass/Vol] 16 mg/dL 4-19 [facility] Sodium levelOrdered By: Linda Nguyễn on 02-11-2025 Sodium [Moles/Vol] 143 mmol/L 133-145 [facility] Total proteinOrdered By: Odin Nguyễn on 02-11-2025 Protein [Mass/Vol] 6.8 g/dL 5.9-8.4 [facility] Triglycerides measurementOrd ered By: Noe Nguyễn on 02-11-2025 Triglyceride [Mass/Vol] 129 mg/dL <199 [facility] Comment on above: The drugs N-Acetylcy steine and Metamizole may falsely depress this assay. Normal range: <150 mg/dLBorderline High: 150-199 mg/dLHigh: 200-499 mg/dLVery High: >500 mg/dL White blood cell (WBC) count Ordered By: Noe Nguyễn on 02-11-2025 WBC (Bld) [#/Vol] 5.9 10*3/uL 4.4-11.0 [facility] .Auto Diffon 02-06-2025 Basophil, Absolute 0.0 10 3/mcL Normal 0.0-0.3 [facility] Comment on above: Performed By: #### C BC, ADIFF, BMP, GFR, ANEU #### [address] [address] Basophils/100 WBC (Bld) 0.8 % Normal 0.0-2.5 [facility] Comment on above: Performed By: #### C BC, ADIFF, BMP, GFR, ANEU #### [address] [address] Eosinophil, Absolute 0.3 10 3/mcL Normal 0.0-0.7 [facility] Comment on above: Performed By: #### C BC, ADIFF, BMP, GFR, ANEU #### [address] [address] Eosinophils/100 WBC (Bld) 4.8 % Normal 0.0-6.0 [facility] Comment on above: Performed By: #### C BC, ADIFF, BMP, GFR, ANEU #### [address] [address] Lymphocyte, Absolute 1.8 10 3/mcL Normal 0.9-4.3 [facility] Comment on above: Performed By: #### C BC, ADIFF, BMP, GFR, ANEU #### [address] [address] Lymphocytes/100 WBC (Bld) 30.8 % Normal 20.0-40.0 [facility] Comment on above: Performed By: #### C BC, ADIFF, BMP, GFR, ANEU #### [address] [address] Monocyte, Absolute 0.5 10 3/mcL Normal 0.1-1.4 [facility] Comment on above: Performed By: #### C BC, ADIFF, BMP, GFR, ANEU #### [address] [address] Monocytes/100 WBC (Bld) 8.0 % Normal 2.0-13.0 [facility] Comment on above: Performed By: #### C BC, ADIFF, BMP, GFR, ANEU #### [address] [address] Neutrophils/100 WBC (Bld) 55.6 % Normal 50.0-75.0 [facility] Comment on above: Performed By: #### C BC, ADIFF, BMP, GFR, ANEU #### [address] [address] .GFRon 02-06-2025 Estimated Glomerular Filtration Rate 74 ml/min/1.73sqm Normal [facility] Comment on above: Result Comment: Stages of Chronic Kidney Disease (CKD) Stage Description eGFR(ml/min/1.73 sq.m.) CKD 1 Normal kidney function or >=90 normal kindney function with possible kidney damage (ex. Proteinuria) CKD 2 Kidney damage with mild loss 60-89 of kidney function CKD 3a Mild to moderate loss of kidney 45-59 function CKD 3b Moderate to severe loss of 30-44 of kindey function CKD 4 Severe loss of kidney function 15-29 CKD 5 Kidney failure <15 Note: (go live 2024) the eGFR calculation was updated to the 2020 CKD-EPI creatinine equation without a race factor to calculate the eGFR results. Performed By: #### C BC, ADIFF, BMP, GFR, ANEU #### [address] [address] .NEUABSon 02-06-2025 Neutrophil, Absolute 3.3 10 3/mcL Normal 2.3-8.1 [facility] Comment on above: Performed By: #### C BC, ADIFF, BMP, GFR, ANEU #### [address] [address] BMPon 02-06-2025 BUN/Creatinine Ratio 23 ratio Normal 7-27 [facility] Comment on above: Performed By: #### C BC, ADIFF, BMP, GFR, ANEU #### [address] [address] Calcium [Mass/Vol] 9.2 mg/dL Normal 8.4-10.2 [facility] Comment on above: Performed By: #### C BC, ADIFF, BMP, GFR, ANEU #### [address] [address] Chloride [Moles/Vol] 106 mmol/L Normal 98-107 [facility] Comment on above: Performed By: #### C BC, ADIFF, BMP, GFR, ANEU #### [address] [address] CO2 [Moles/Vol] 25 mmol/L Normal 23-31 [facility] Comment on above: Performed By: #### C BC, ADIFF, BMP, GFR, ANEU #### [address] [address] Creatinine [Mass/Vol] 0.81 mg/dL Normal 0.51-0.95 [facility] Comment on above: Performed By: #### C BC, ADIFF, BMP, GFR, ANEU #### [place] [id number] Electrolyte Balance 11.0 mEq/L Normal 4.0-15.0 [facility] Comment on above: Performed By: #### C BC, ADIFF, BMP, GFR, ANEU #### [place] [address] Glucose [Mass/Vol] 107 mg/dL Normal 83-110 [facility] Comment on above: Performed By: #### C BC, ADIFF, BMP, GFR, ANEU #### [place] [address] Potassium [Moles/Vol] 4.4 mmol/L Normal 3.5-5.1 [facility] Comment on above: Performed By: #### C BC, ADIFF, BMP, GFR, ANEU #### [place] [address] Sodium [Moles/Vol] 142 mmol/L Normal 136-145 [facility] Comment on above: Performed By: #### C BC, ADIFF, BMP, GFR, ANEU #### [place] [address] Urea nitrogen [Mass/Vol] 19 mg/dL High 7-18 [facility] Comment on above: Performed By: #### C BC, ADIFF, BMP, GFR, ANEU #### [address] [address] CBCon 02-06-2025 Erythrocyte distribution width (RBC) [Ratio] 15.9 % High 11.5-15.5 [facility] Comment on above: Performed By: #### C BC, ADIFF, BMP, GFR, ANEU #### [place] [id number] Hematocrit (Bld) [Volume fraction] 32.5 % Low 34.0-46.0 [facility] Comment on above: Performed By: #### C BC, ADIFF, BMP, GFR, ANEU #### [address] [address] Hgb 10.6 G/dL Low 12.0-16.0 [facility] Comment on above: Performed By: #### C BC, ADIFF, BMP, GFR, ANEU #### [address] [address] MCH (RBC) [Entitic mass] 29.8 pg Normal 27.0-33.0 [facility] Comment on above: Performed By: #### C BC, ADIFF, BMP, GFR, ANEU #### [address] [address] MCHC 32.6 G/dL Normal 32.0-36.0 [facility] Comment on above: Performed By: #### C BC, ADIFF, BMP, GFR, ANEU #### [address] [address] MCV (RBC) [Entitic vol] 91.4 fL Normal 80.0-99.0 [facility] Comment on above: Performed By: #### C BC, ADIFF, BMP, GFR, ANEU #### [address] [address] Platelet 261 10 3/mcL Normal 150-450 [facility] Comment on above: Performed By: #### C BC, ADIFF, BMP, GFR, ANEU #### [address] [address] Platelet mean volume (Bld) [Entitic vol] 8.8 fL Normal 6.6-10.5 [facility] Comment on above: Performed By: #### C BC, ADIFF, BMP, GFR, ANEU #### [address] [address] RBC 3.56 10 6/mcL Low 4.10-5.30 [facility] Comment on above: Performed By: #### C BC, ADIFF, BMP, GFR, ANEU #### [address] [address] WBC 5.9 10 3/mcL Normal 4.5-10.8 [facility] Comment on above: Performed By: #### C BC, ADIFF, BMP, GFR, ANEU #### [facility] [address] [place], [place] [address] LABORATORYOrdered By: SYSTEM SYSTEM on 02-06-2025 Basophils (Bld) [#/Vol] 0.0 103/mcL Normal 0.0 - 0.3 10^3/mcL AO Workflow SS Basophils/100 WBC (Bld) 0.8 % Normal 0.0 - 2.5 % AO Workflow SS Calcium [Mass/Vol] 9.2 mg/dL Normal 8.4 - 10. 2 mg/dL AO ADM SS Chloride [Moles/Vol] 106 mmol/L Normal 98 - 10 7 mmol/L AO ADM SS CO2 [Moles/Vol] 25 mmol/L Normal 23 - 31 mmol/L AO ADM SS Creatinine [Mass/Vol] 0.81 mg/dL Normal 0.51 - 0.95 mg/dL AO ADM SS Electrolyte Balance 11.0 mEq/L Normal 4.0 - 15 .0 mEq/L AO ADM SS Eosinophil, Absolute 0.3 103/mcL Normal 0.0 - 0 .7 10^3/mcL AO Workflow SS Eosinophils/100 WBC (Bld) 4.8 % Normal 0.0 - 6.0 % AO Workflow SS Erythrocyte distribution width (RBC) [Ratio] 15.9 % High 11.5 - 15.5 % AO Workflow SS Estimated Glomerular Filtration Rate 74 ml/min/1.73sqm Invalid Interpretation Code AO Chemistry S Comment on above: Interpretive Data: Stages of Chronic Kidney Disease (CKD) Stage Description eGFR(ml/min/1.73 sq.m.) CKD 1 Normal kidney function or >=90 normal kindney function with possible kidney damage (ex. Proteinuria) CKD 2 Kidney damage with mild loss 60-89 of kidney function CKD 3a Mild to moderate loss of kidney 45-59 function CKD 3b Moderate to severe loss of 30-44 of kindey function CKD 4 Severe loss of kidney function 15-29 CKD 5 Kidney failure <15 Note: (go live 2024) the eGFR calculation was updated to the 2020 CKD-EPI creatinine equation without a race factor to calculate the eGFR results. Glucose [Mass/Vol] 107 mg/dL Normal 83 - 110 mg/dL AO ADM SS Hematocrit (Bld) [Volume fraction] 32.5 % Low 34.0 - 46.0 % AO Workflow SS Hemoglobin (Bld) [Mass/Vol] 10.6 G/dL Low 12.0 - 16.0 G/dL AO Workflow SS Lymphocytes (Bld) [#/Vol] 1.8 103/mcL Normal 0.9 - 4.3 10^3/mcL AO Workflow SS Lymphocytes/100 WBC (Bld) 30.8 % Normal 20.0 - 40.0 % AO Workflow SS MCH (RBC) [Entitic mass] 29.8 pg Normal 27. 0 - 33.0 pg AO Workflow SS MCHC 32.6 G/dL Normal 32.0 - 36.0 G/dL AO Workflow SS MCV (RBC) [Entitic vol] 91.4 fL Normal 80.0 - 99.0 fL AO Workflow SS Monocytes (Bld) [#/Vol] 0.5 103/mcL Normal 0.1 - 1.4 10^3/mcL AO Workflow SS Monocytes/100 WBC (Bld) 8.0 % Normal 2.0 - 13.0 % AO Workflow SS Neutrophils (Bld) [#/Vol] 3.3 103/mcL Normal 2.3 - 8.1 10^3/mcL AO Workflow SS Neutrophils/100 WBC (Bld) 55.6 % Normal 50.0 - 75.0 % AO Workflow SS Platelet mean volume (Bld) [Entitic vol] 8.8 fL Normal 6.6 - 10.5 fL AO Workflow SS Platelets (Bld) [#/Vol] 261 103/mcL Normal 150 - 450 10^3/mcL AO Workflow SS Potassium [Moles/Vol] 4.4 mmol/L Normal 3.5 - 5.1 mmol/L AO ADM SS RBC (Bld) [#/Vol] 3.56 106/mcL Low 4.10 - 5.3 0 10^6/mcL AO Workflow SS Sodium [Moles/Vol] 142 mmol/L Normal 136 - 145 mmol/L AO ADM SS Urea nitrogen [Mass/Vol] 19 mg/dL High 7 - 18 mg/d L AO ADM SS Urea nitrogen/Creatinine [Mass ratio] 23 ratio Normal 7 - 27 ratio AO ADM SS WBC (Bld) [#/Vol] 5.9 103/mcL Normal 4.5 - 10.8 10^3/mcL AO Workflow SS Anion gap in Serum or Plasma Ordered By: Sukhdev Farrar on 02-04-2025 Anion gap [Moles/Vol] 11 mmol/L - [facility] BUN/creatinine ratioOrdered By: Sukhdev Farrar on 02-04-2025 Urea nitrogen/Creatinine [Mass ratio] 15.9 mg/mg - [facility] Basic Metabolic Profile (BMP )on 02-04-2025 BUN/CRE 15.9 RATIO Normal 06-01 [facility] Comment on above: Order Comment: 315.1 Performed By: #### L 499.0043 #### [facility] [address] [place], [address] Calcium [Mass/Vol] 9.2 mg/dL Normal 7.6-11.0 [facility] Comment on above: Order Comment: 315.1 Performed By: #### L 499.0043 #### [facility] [address] [place], [address] Chloride [Moles/Vol] 109 mmol/L High 98-108 [facility] Comment on above: Order Comment: 315.1 Performed By: #### L 499.0043 #### [facility] [address] [place], [address] CO2 [Moles/Vol] 22.3 mmol/L Normal 21.0-32.0 [facility] Comment on above: Order Comment: 315.1 Performed By: #### L 499.0043 #### [facility] [address] [place], [address] Creatinine [Mass/Vol] 0.82 mg/dL Normal 0.70-1.20 [facility] Comment on above: Order Comment: 315.1 Performed By: #### L 499.0043 #### [facility] [address] [place], [address] GAP 11 Normal - [facility] Comment on above: Order Comment: 315.1 Performed By: #### L 499.0043 #### [facility] [address] [place], [address] GFR/1.73 sq M.predicted among non-blacks MDRD (S/P/Bld) [Vol rate/Area] 73 mL/min/{1.73_m2} Normal >60 [facility] Comment on above: Order Comment: 315.1 Result Comment: mL/m in/1.73m2 CKD-EPI Creatinine Equation (2020) Performed By: #### L 499.0043 #### [facility] [address] [place], [address] Glucose [Mass/Vol] 96 mg/dL Normal 70-99 [facility] Comment on above: Order Comment: 315.1 Performed By: #### L 499.0043 #### [facility] [address] [place], [address] Potassium [Moles/Vol] 3.6 mmol/L Normal 3.3-5.1 [facility] Comment on above: Order Comment: 315.1 Performed By: #### L 499.0043 #### [facility] [address] [place], [address] Sodium [Moles/Vol] 143 mmol/L Normal 133-145 [facility] Comment on above: Order Comment: 315.1 Performed By: #### L 499.0043 #### [facility] [address] [place], [address] Urea nitrogen [Mass/Vol] 13 mg/dL Normal 4-19 [facility] Comment on above: Order Comment: 315.1 Performed By: #### L 499.0043 #### [facility] [address] [place], [address] CBC-Complete Blood Cnt No Di ffon 02-04-2025 Erythrocyte distribution width (RBC) [Ratio] 15.3 % High 11.6-14.6 [facility] Comment on above: Order Comment: 315.1 Performed By: #### L 499.0043 #### [facility] [address] [place], [address] Hematocrit (Bld) [Volume fraction] 29.5 % Low 37-47 [facility] Comment on above: Order Comment: 315.1 Performed By: #### L 499.0043 #### [facility] [address] [place], [address] Hemoglobin (Bld) [Mass/Vol] 9.1 g/dL Low 12.0-15.0 [facility] Comment on above: Order Comment: 315.1 Performed By: #### L 499.0043 #### [facility] [address] [place], [address] MCH (RBC) [Entitic mass] 28.8 pg Normal 27.0-32.0 [facility] Comment on above: Order Comment: 315.1 Performed By: #### L 499.0043 #### [facility] [address] [place], [address] MCHC (RBC) [Mass/Vol] 30.8 g/dL Low 32-36 [facility] Comment on above: Order Comment: 315.1 Performed By: #### L 499.0043 #### [facility] [address] [place], [address] MCV (RBC) [Entitic vol] 93.4 fL Normal 81-99 [facility] Comment on above: Order Comment: 315.1 Performed By: #### L 499.0043 #### [facility] [address] [place], [address] Platelet mean volume (Bld) [Entitic vol] 10.4 fL Normal 6.2-12.0 [facility] Comment on above: Order Comment: 315.1 Performed By: #### L 499.0043 #### [facility] [address] [place], [address] Platelets (Bld) [#/Vol] 241 10*3/uL Normal 150-450 [facility] Comment on above: Order Comment: 315.1 Performed By: #### L 499.0043 #### [facility] [address] [place], [address] RBC (Bld) [#/Vol] 3.16 10*6/uL Low 4.2-5.4 [facility] Comment on above: Order Comment: 315.1 Performed By: #### L 499.0043 #### [facility] [address] [place], [address] RDW SD 52.6 fl High 35.1-43.9 [facility] Comment on above: Order Comment: 315.1 Performed By: #### L 499.0043 #### [facility] [address] [place], [address] WBC (Bld) [#/Vol] 4.2 10*3/uL Low 4.4-11.0 [facility] Comment on above: Order Comment: 315.1 Performed By: #### L 499.0043 #### [facility] [address] [place], [address] Carbon dioxide, total [Moles /volume] in Central venous bloodOrdered By: Sukhdev Farrar on 02-04-2025 CO2 [Moles/Vol] 22.3 mmol/L 21.0-32.0 [facility] Chloride assayOrdered By: Leonard on 02-04-2025 Chloride [Moles/Vol] 109 mmol/L High 98-108 [facility] Erythrocyte distribution wid th ratioOrdered By: Sukhdev Farrar on 02-04-2025 Erythrocyte distribution width (RBC) [Ratio] 15.3 % High 11.6-14.6 [facility] Erythrocyte distribution wid th standard deviationOrdered By: Sukhdev Farrar on 02-04-2025 Erythrocyte distribution width (RBC) [Ratio] 52.6 fl High 35.1-43.9 [facility] Glomerular filtration rate ( GFR) estimation/1.73 sq m using serum, plasma, or whole bOrdered By: Sukhdev Farrar on 02-04-2025 GFR/1.73 sq M.predicted among non-blacks MDRD (S/P/Bld) [Vol rate/Area] 73 mL/min/{1.73_m2} >60 [facility] Comment on above: mL/min/1.73m2 CKD-EP I Creatinine Equation (2020) Hematocrit Auto (Bld) [Volum e fraction]Ordered By: Sukhdev Farrar on 02-04-2025 Hematocrit (Bld) [Volume fraction] 29.5 % Low 37-47 [facility] Hemoglobin measurementOrdere d By: Sukhdev Farrar on 02-04-2025 Hemoglobin (Bld) [Mass/Vol] 9.1 g/dL Low 12.0-15.0 [facility] MCV (mean corpuscular volume ) determinationOrdered By: Sukhdev Farrar on 02-04-2025 MCV (RBC) [Entitic vol] 93.4 fL 81-99 [facility] Mean corpuscular hemoglobin (MCH) determinationOrdered By: Sukhdev Farrar on 02-04-2025 MCH (RBC) [Entitic mass] 28.8 pg 27.0-32.0 [facility] Mean corpuscular hemoglobin concentration (MCHC) determinationOrdered By: Sukhdev Farrar on 02-04-2025 MCHC (RBC) [Mass/Vol] 30.8 g/dL Low 32-36 [facility] Mean platelet volume determi nationOrdered By: Sukhdev Farrar on 02-04-2025 Platelet mean volume (Bld) [Entitic vol] 10.4 fL 6.2-12.0 [facility] Platelet countOrdered By: Leonard on 02-04-2025 Platelets (Bld) [#/Vol] 241 10*3/uL 150-450 [facility] Potassium measurement (mass/ volume)Ordered By: Sukhdev Farrar on 02-04-2025 Potassium (Unsp spec) [Mass/Vol] 3.6 mmol/L 3.3-5.1 [facility] RBC Auto (Bld) [#/Vol]Ordere d By: Sukhdev Farrar on 02-04-2025 RBC (Bld) [#/Vol] 3.16 10*6/uL Low 4.2-5.4 [facility] Serum creatinine measurement (mass/volume)Ordered By: Sukhdev Farrar on 02-04-2025 Creatinine [Mass/Vol] 0.82 mg/dL 0.70-1.20 [facility] Serum glucose measurement (m ass/volume)Ordered By: Sukhdev Farrar on 02-04-2025 Glucose [Mass/Vol] 96 mg/dL 70-99 [facility] Serum or plasma calcium valerio urement (mass/volume)Ordered By: Sukhdev Farrar on 02-04-2025 Calcium [Mass/Vol] 9.2 mg/dL 7.6-11.0 [facility] Serum or plasma urea nitroge n measurement (mass/volume)Ordered By: Sukhdev Farrar on 02-04-2025 Urea nitrogen [Mass/Vol] 13 mg/dL 4-19 [facility] Sodium levelOrdered By: Sukhdev Farrar on 02-04-2025 Sodium [Moles/Vol] 143 mmol/L 133-145 [facility] White blood cell (WBC) count Ordered By: Sukhdev Farrar on 02-04-2025 WBC (Bld) [#/Vol] 4.2 10*3/uL Low 4.4-11.0 [facility] Anion gap in Serum or Plasma Ordered By: Sukhdev Farrar on 02-03-2025 Anion gap [Moles/Vol] 12 mmol/L 5-15 [facility] BUN/creatinine ratioOrdered By: Sukhdev Farrar on 02-03-2025 Urea nitrogen/Creatinine [Mass ratio] 18.0 mg/mg 10- [facility] Basic Metabolic Profile (BMP )on 02-03-2025 BUN/CRE 18.0 RATIO Normal - [facility] Comment on above: Order Comment: 315.1 Performed By: #### L 499.0043 #### [facility] [place], [address] Calcium [Mass/Vol] 9.2 mg/dL Normal 7.6-11.0 [facility] Comment on above: Order Comment: 315.1 Performed By: #### L 499.0043 #### [facility] [address] [place], [address] Chloride [Moles/Vol] 109 mmol/L High 98-108 [facility] Comment on above: Order Comment: 315.1 Performed By: #### L 499.0043 #### [facility] [address] [place], [address] CO2 [Moles/Vol] 21.8 mmol/L Normal 21.0-32.0 [facility] Comment on above: Order Comment: 315.1 Performed By: #### L 499.0043 #### [facility] [address] [place], [address] Creatinine [Mass/Vol] 0.78 mg/dL Normal 0.70-1.20 [facility] Comment on above: Order Comment: 315.1 Performed By: #### L 499.0043 #### [facility] [address] [place], [address] GAP 12 Normal 5-15 [facility] Comment on above: Order Comment: 315.1 Performed By: #### L 499.0043 #### [facility] [address] [place], [address] GFR/1.73 sq M.predicted among non-blacks MDRD (S/P/Bld) [Vol rate/Area] 78 mL/min/{1.73_m2} Normal >60 [facility] Comment on above: Order Comment: 315.1 Result Comment: mL/m in/1.73m2 CKD-EPI Creatinine Equation (2020) Performed By: #### L 499.0043 #### [facility] [address] [place], [address] Glucose [Mass/Vol] 95 mg/dL Normal 70-99 [facility] Comment on above: Order Comment: 315.1 Performed By: #### L 499.0043 #### [facility] [address] [place], [address] Potassium [Moles/Vol] 3.4 mmol/L Normal 3.3-5.1 [facility] Comment on above: Order Comment: 315.1 Performed By: #### L 499.0043 #### [facility] [address] [place], [address] Sodium [Moles/Vol] 142 mmol/L Normal 133-145 [facility] Comment on above: Order Comment: 315.1 Performed By: #### L 499.0043 #### [facility] [address] [place], [address] Urea nitrogen [Mass/Vol] 14 mg/dL Normal 4-19 [facility] Comment on above: Order Comment: 315.1 Performed By: #### L 499.0043 #### [facility] [address] [place], [address] Carbon dioxide, total [Moles /volume] in Central venous bloodOrdered By: Sukhdev Farrar on 02-03-2025 CO2 [Moles/Vol] 21.8 mmol/L 21.0-32.0 [facility] Chloride assayOrdered By: Leonard on 02-03-2025 Chloride [Moles/Vol] 109 mmol/L High 98-108 [facility] Glomerular filtration rate ( GFR) estimation/1.73 sq m using serum, plasma, or whole bOrdered By: Sukhdev Farrar on 02-03-2025 GFR/1.73 sq M.predicted among non-blacks MDRD (S/P/Bld) [Vol rate/Area] 78 mL/min/{1.73_m2} >60 [facility] Comment on above: mL/min/1.73m2 CKD-EP I Creatinine Equation (2020) Potassium measurement (mass/ volume)Ordered By: Sukhdev Farrar on 02-03-2025 Potassium (Unsp spec) [Mass/Vol] 3.4 mmol/L 3.3-5.1 [facility] Serum creatinine measurement (mass/volume)Ordered By: Sukhdev Farrar on 02-03-2025 Creatinine [Mass/Vol] 0.78 mg/dL 0.70-1.20 [facility] Serum glucose measurement (m ass/volume)Ordered By: Sukhdev Farrar on 02-03-2025 Glucose [Mass/Vol] 95 mg/dL 70-99 [facility] Serum or plasma calcium valerio urement (mass/volume)Ordered By: Sukhdev Farrar on 02-03-2025 Calcium [Mass/Vol] 9.2 mg/dL 7.6-11.0 [facility] Serum or plasma urea nitroge n measurement (mass/volume)Ordered By: Sukhdev Farrar on 02-03-2025 Urea nitrogen [Mass/Vol] 14 mg/dL 4-19 [facility] Sodium levelOrdered By: Sukhdev Farrar on 02-03-2025 Sodium [Moles/Vol] 142 mmol/L 133-145 [facility] Anion gap in Serum or Plasma Ordered By: Sukhdev Farrar on 01-28-2025 Anion gap [Moles/Vol] 11 mmol/L 5-15 [facility] BUN/creatinine ratioOrdered By: Sukhdev Farrar on 01-28-2025 Urea nitrogen/Creatinine [Mass ratio] 18.3 mg/mg 10- [facility] Basic Metabolic Profile (BMP )on 01-28-2025 BUN/CRE 18.3 RATIO Normal - [facility] Comment on above: Order Comment: 315.1 Performed By: #### L 300.4650 #### [facility] [address] [place], [place], [id number] (336) Calcium [Mass/Vol] 9.1 mg/dL Normal 7.6-11.0 [facility] Comment on above: Order Comment: 315.1 Performed By: #### L 300.4310 #### [facility] [address] [place], [address] Chloride [Moles/Vol] 108 mmol/L Normal 98-108 [facility] Comment on above: Order Comment: 315.1 Performed By: #### L 300.4310 #### [facility] [address] [place], [address] CO2 [Moles/Vol] 23.7 mmol/L Normal 21.0-32.0 [facility] Comment on above: Order Comment: 315.1 Performed By: #### L 300.4310 #### [facility] [address] [place], [address] Creatinine [Mass/Vol] 0.81 mg/dL Normal 0.70-1.20 [facility] Comment on above: Order Comment: 315.1 Performed By: #### L 300.4310 #### [facility] [address] [place], [address] GAP 11 Normal 5-15 [facility] Comment on above: Order Comment: 315.1 Performed By: #### L 300.4310 #### [facility] [address] [place], [address] GFR/1.73 sq M.predicted among non-blacks MDRD (S/P/Bld) [Vol rate/Area] 74 mL/min/{1.73_m2} Normal >60 [facility] Comment on above: Order Comment: 315.1 Result Comment: mL/m in/1.73m2 CKD-EPI Creatinine Equation (2020) Performed By: #### L 300.4310 #### [facility] [address] [place], [address] Glucose [Mass/Vol] 94 mg/dL Normal 70-99 [facility] Comment on above: Order Comment: 315.1 Performed By: #### L 300.4310 #### [facility] [address] [place], [address] Potassium [Moles/Vol] 3.7 mmol/L Normal 3.3-5.1 [facility] Comment on above: Order Comment: 315.1 Performed By: #### L 300.4310 #### [facility] [address] [place], [address] Sodium [Moles/Vol] 143 mmol/L Normal 133-145 [facility] Comment on above: Order Comment: 315.1 Performed By: #### L 300.4310 #### [facility] [address] [place], [address] Urea nitrogen [Mass/Vol] 15 mg/dL Normal 4-19 [facility] Comment on above: Order Comment: 315.1 Performed By: #### L 300.4310 #### [facility] [address] [place], [address] CBC-Complete Blood Cnt No Di ffon 01-28-2025 Erythrocyte distribution width (RBC) [Ratio] 16.4 % High 11.6-14.6 [facility] Comment on above: Order Comment: 315.1 Performed By: #### L 300.4310 #### [facility] [address] [place], [address] Hematocrit (Bld) [Volume fraction] 28.4 % Low 37-47 [facility] Comment on above: Order Comment: 315.1 Performed By: #### L 300.4310 #### [facility] [address] [place], [address] Hemoglobin (Bld) [Mass/Vol] 8.8 g/dL Low 12.0-15.0 [facility] Comment on above: Order Comment: 315.1 Performed By: #### L 300.4310 #### [facility] [address] [place], [address] MCH (RBC) [Entitic mass] 29.3 pg Normal 27.0-32.0 [facility] Comment on above: Order Comment: 315.1 Performed By: #### L 300.4310 #### [facility] [address] [place], [address] MCHC (RBC) [Mass/Vol] 31.0 g/dL Low 32-36 [facility] Comment on above: Order Comment: 315.1 Performed By: #### L 300.4310 #### [facility] [address] [place], [address] MCV (RBC) [Entitic vol] 94.7 fL Normal 81-99 [facility] Comment on above: Order Comment: 315.1 Performed By: #### L 300.4310 #### [facility] [address] [place], [address] Platelet mean volume (Bld) [Entitic vol] 10.1 fL Normal 6.2-12.0 [facility] Comment on above: Order Comment: 315.1 Performed By: #### L 300.4310 #### [facility] [address] [place], [address] Platelets (Bld) [#/Vol] 311 10*3/uL Normal 150-450 [facility] Comment on above: Order Comment: 315.1 Performed By: #### L 300.4310 #### [facility] [address] [place], [address] RBC (Bld) [#/Vol] 3.00 10*6/uL Low 4.2-5.4 [facility] Comment on above: Order Comment: 315.1 Performed By: #### L 300.4310 #### [facility] [address] [place], [address] RDW SD 55.8 fl High 35.1-43.9 [facility] Comment on above: Order Comment: 315.1 Performed By: #### L 300.4310 #### [facility] [address] [place], [address] WBC (Bld) [#/Vol] 5.5 10*3/uL Normal 4.4-11.0 [facility] Comment on above: Order Comment: 315.1 Performed By: #### L 342.4082 #### [facility] [address] [place], [address] Carbon dioxide, total [Moles /volume] in Central venous bloodOrdered By: Sukhdev Farrar on 01-28-2025 CO2 [Moles/Vol] 23.7 mmol/L 21.0-32.0 [facility] Chloride assayOrdered By: Leonard on 01-28-2025 Chloride [Moles/Vol] 108 mmol/L 98-108 [facility] Erythrocyte distribution wid th ratioOrdered By: Sukhdev Farrar on 01-28-2025 Erythrocyte distribution width (RBC) [Ratio] 16.4 % High 11.6-14.6 [facility] Erythrocyte distribution wid th standard deviationOrdered By: Sukhdev Farrar on 01-28-2025 Erythrocyte distribution width (RBC) [Ratio] 55.8 fl High 35.1-43.9 [facility] Glomerular filtration rate ( GFR) estimation/1.73 sq m using serum, plasma, or whole bOrdered By: Sukhdev Farrar on 01-28-2025 GFR/1.73 sq M.predicted among non-blacks MDRD (S/P/Bld) [Vol rate/Area] 74 mL/min/{1.73_m2} >60 [facility] Comment on above: mL/min/1.73m2 CKD-EP I Creatinine Equation (2020) Hematocrit Auto (Bld) [Volum e fraction]Ordered By: Sukhdev Farrar on 01-28-2025 Hematocrit (Bld) [Volume fraction] 28.4 % Low 37-47 [facility] Hemoglobin measurementOrdere d By: Sukhdev Farrar on 01-28-2025 Hemoglobin (Bld) [Mass/Vol] 8.8 g/dL Low 12.0-15.0 [facility] MCV (mean corpuscular volume ) determinationOrdered By: Sukhdev Farrar on 01-28-2025 MCV (RBC) [Entitic vol] 94.7 fL 81-99 [facility] Mean corpuscular hemoglobin (MCH) determinationOrdered By: Sukhdev Farrar on 01-28-2025 MCH (RBC) [Entitic mass] 29.3 pg 27.0-32.0 [facility] Mean corpuscular hemoglobin concentration (MCHC) determinationOrdered By: Sukhdev Farrar on 01-28-2025 MCHC (RBC) [Mass/Vol] 31.0 g/dL Low 32-36 [facility] Mean platelet volume determi nationOrdered By: Sukhdev Farrar on 01-28-2025 Platelet mean volume (Bld) [Entitic vol] 10.1 fL 6.2-12.0 [facility] Platelet countOrdered By: Leonard on 01-28-2025 Platelets (Bld) [#/Vol] 311 10*3/uL 150-450 [facility] Potassium measurement (mass/ volume)Ordered By: Sukhdev Farrar on 01-28-2025 Potassium (Unsp spec) [Mass/Vol] 3.7 mmol/L 3.3-5.1 [facility] RBC Auto (Bld) [#/Vol]Ordere d By: Sukhdev Farrar on 01-28-2025 RBC (Bld) [#/Vol] 3.00 10*6/uL Low 4.2-5.4 [facility] Serum creatinine measurement (mass/volume)Ordered By: Sukhdev Farrar on 01-28-2025 Creatinine [Mass/Vol] 0.81 mg/dL 0.70-1.20 [facility] Serum glucose measurement (m ass/volume)Ordered By: Sukhdev Farrar on 01-28-2025 Glucose [Mass/Vol] 94 mg/dL 70-99 [facility] Serum or plasma calcium valerio urement (mass/volume)Ordered By: Sukhdev Farrar on 01-28-2025 Calcium [Mass/Vol] 9.1 mg/dL 7.6-11.0 [facility] Serum or plasma urea nitroge n measurement (mass/volume)Ordered By: Sukhdev Farrar on 01-28-2025 Urea nitrogen [Mass/Vol] 15 mg/dL 4-19 [facility] Sodium levelOrdered By: Sukhdev Farrar on 01-28-2025 Sodium [Moles/Vol] 143 mmol/L 133-145 [facility] White blood cell (WBC) count Ordered By: Sukhdev Farrar on 01-28-2025 WBC (Bld) [#/Vol] 5.5 10*3/uL 4.4-11.0 [facility] [id number] 01-26-2025 [id number] Normal [facility] [id number] Normal [facility] [id number] Normal [facility] BASIC METABOLIC PANELon 01-11 Anion gap [Moles/Vol] 7 mmol/L Normal 3-13 [facility] Comment on above: Performed By: #### L AB103, LAB15, [id number] ####Lease Administration Supervisor: CHELSIE ISAACS ([phone])[facility])[address] [place] [address] Calcium [Mass/Vol] 8.4 mg/dL Low 8.8-10.0 [facility] Comment on above: Performed By: #### L AB103, LAB15, [id number] ####Lease Administration Supervisor: CHELSIE ISAACS ([phone])[facility])[address] [place] [address] Chloride [Moles/Vol] 114 mmol/L High 98-107 [facility] Comment on above: Performed By: #### L AB103, LAB15, [id number] ####Lease Administration Supervisor: CHELSIE ISAACS ([phone])[facility])[address] [place] [address] CO2 [Moles/Vol] 21 mmol/L Low 23-31 [facility] Comment on above: Performed By: #### L AB103, LAB15, [id number] ####Lease Administration Supervisor: CHELSIE ISAACS ([phone])[facility])[address] [place] [address] Creatinine [Mass/Vol] 0.70 mg/dL Normal 0.57-1.11 [facility] Comment on above: Performed By: #### L AB103, LAB15, [id number] ####Lease Administration Supervisor: CHELSIE ISAACS ([phone])[facility])[address] [place] [address] [place] GLOMERULAR FILTRATION RATE ML/MIN/1.73 SQ M.PREDICTED 88.7 mL/min/1.73m*2 Normal >60.0 [facility] Comment on above: Result Comment: Calc ulation based on the Chronic Kidney Disease Epidemiology Collaboration (CKD-EPI) equation refit without adjustment for race Performed By: #### L AB103, LAB15, [id number] ####Lease Administration Supervisor: CHELSIE ISAACS ([phone])[address] Glucose [Mass/Vol] 95 mg/dL Normal 82-115 [facility] Comment on above: Performed By: #### L AB103, LAB15, [id number] ####Lease Administration Supervisor: CHELSIE ISAACS ([phone])[address] Potassium [Moles/Vol] 3.3 mmol/L Low 3.5-5.1 [facility] Comment on above: Result Comment: [facility] potassium values may be up to 0.5 mmol/L lower than serum values. Performed By: #### L AB103, LAB15, [id number] ####Lease Administration Supervisor: CHELSIE ISAACS ([phone])[facility])[address] [place] [address] [place] Sodium [Moles/Vol] 142 mmol/L Normal 136-145 [facility] Comment on above: Performed By: #### L AB103, LAB15, [id number] ####Lease Administration Supervisor: CHELSIE ISAACS ([phone])[facility])[address] [place] [address] [place] Urea nitrogen [Mass/Vol] 18 mg/dL Normal 9-23 [facility] Comment on above: Performed By: #### L AB103, LAB15, [id number] ####Lease Administration Supervisor: CHELSIE ISAACS ([phone])[facility])[address] [place] [address] Basic metabolic 1998 panelon 01-26-2025 Anion gap [Moles/Vol] 7 mmol/L 3 - 13 mmol/L [facility] Calcium [Mass/Vol] 8.4 mg/dL Low 8.8 - 10. 0 mg/dL [facility] Chloride [Moles/Vol] 114 mmol/L High 98 - 10 7 mmol/L [facility] CO2 [Moles/Vol] 21 mmol/L Low 23 - 31 mmol/L [facility] Creatinine [Mass/Vol] 0.7 mg/dL 0.57 - 1.11 mg/dL [facility] GFR/1.73 sq M.predicted (S/P/Bld) [Vol rate/Area] 88.7 mL/min - PINF [facility] Glucose [Mass/Vol] 95 mg/dL 82 - 115 mg/dL [facility] Interpretation and review of laboratory results Abnormal [facility] Potassium [Moles/Vol] 3.3 mmol/L Low 3.5 - 5.1 mmol/L [facility] Sodium [Moles/Vol] 142 mmol/L 136 - 145 mmol/L [facility] Urea nitrogen [Mass/Vol] 18 mg/dL 9 - 23 mg/d L [facility] CBC (HEMOGRAM)on 01-26-2025 Erythrocyte distribution width (RBC) [Ratio] 16.7 % High 11.5-15.0 [facility] Comment on above: Performed By: #### L AB294 ####Lease Administration Supervisor: CHESLIE [phone])[facility])[address] [place] [address] Hematocrit (Bld) [Volume fraction] 28.1 % Low 35.0-47.0 [facility] Comment on above: Performed By: #### L AB294 ####Lease Administration Supervisor: CHELSIE [phone])[address] Hemoglobin (Bld) [Mass/Vol] 8.8 g/dL Low 11.7-16.0 [facility] Comment on above: Performed By: #### L AB294 ####Lease Administration Supervisor: CHELSIE [phone])[facility])[address] [place] [address] MCH (RBC) [Entitic mass] 29.5 pg Normal 26.0-34.0 [facility] Comment on above: Performed By: #### L AB294 ####Lease Administration Supervisor: CHELSIE ISAACS ([phone])[facility])[address] [place] [address] MCHC 31.3 % Normal 30.5-36.0 [facility] Comment on above: Performed By: #### L AB294 ####Lease Administration Supervisor: CHELSIE ISAACS ([phone])[facility])[address] [place] [address] MCV (RBC) [Entitic vol] 94.3 fL Normal 77.0-99.0 [facility] Comment on above: Performed By: #### L AB294 ####Lease Administration Supervisor: CHELSIE ISAACS ([phone])[facility])[address] [place] [address] Platelet mean volume (Bld) [Entitic vol] 9.9 fL Normal 9.0-12.7 [facility] Comment on above: Performed By: #### L AB294 ####Lease Administration Supervisor: CHELSIE ISAACS ([phone])[facility])[address] [place] [address] Platelets (Bld) [#/Vol] 311 10*3/uL Normal 140-440 [facility] Comment on above: Performed By: #### L AB294 ####Lease Administration Supervisor: CHELSIE ISAACS ([phone])[facility])[address] [place] [address] RBC (Bld) [#/Vol] 2.98 10*6/uL Low 3.80-5.20 [facility] Comment on above: Performed By: #### L AB294 ####Lease Administration Supervisor: CHELSIE ISAACS ([phone])[facility])[address] [place] [address] [place] WBC (Bld) [#/Vol] 6.1 10*3/uL Normal 3.6-10.7 [facility] Comment on above: Performed By: #### L AB294 ####Lease Administration Supervisor: CHELSIE ISAACS ([phone])[facility])[address] [place] [address] CBC panel Auto (Bld)on 01-26 Erythrocyte distribution width (RBC) [Ratio] 16.7 % High 11.5 - 15.0 % [facility] Hematocrit (Bld) [Volume fraction] 28.1 % Low 35.0 - 47.0 % [facility] Hemoglobin (Bld) [Mass/Vol] 8.8 g/dL Low 11.7 - 16.0 g/dL [facility] Interpretation and review of laboratory results Abnormal [facility] MCH (RBC) [Entitic mass] 29.5 pg 26. 0 - 34.0 pg [facility] MCHC (RBC) [Mass/Vol] 31.3 % 30.5 - 36.0 % [facility] MCV (RBC) [Entitic vol] 94.3 fL 77.0 - 99.0 fL [facility] Platelet mean volume (Bld) [Entitic vol] 9.9 fL 9.0 - 12.7 fL [facility] Platelets (Bld) [#/Vol] 311 10*3/uL 140 - 440 10*3/uL [facility] RBC (Bld) [#/Vol] 2.98 10*6/uL Low 3.80 - 5.2 0 10*6/uL [facility] WBC (Bld) [#/Vol] 6.1 10*3/uL 3.6 - 10.7 10*3/uL [facility] Laboratory - Chemistry and C hemistry - challengeon 01-26-2025 Magnesium [Mass/Vol] 1.6 mg/dL 1.6 - 2 .6 mg/dL [facility] MAGNESIUMon 01-26-2025 Magnesium [Mass/Vol] 1.6 mg/dL Normal 1.6-2.6 [facility] Comment on above: Result Comment: ORDE R COMMENTS:Higher values can be expected in females during menses. Performed By: #### L AB103, LAB15, [id number] ####Lease Administration Supervisor: CHELSIE ISAACS ([phone])[facility])[address] [place] [address] [place] Magnesium [Mass/Vol]on 01-26 [facility] No Panel Informationon 01-26 Interpretation and review of laboratory results Normal [facility] Nursing Noteon 01-26-2025 Nursing Note Report called to SNF . Normal [facility] PHOSPHORUSon 01-26-2025 Phosphate [Mass/Vol] 4.0 mg/dL Normal 2.3-4.7 [facility] Comment on above: Performed By: #### L AB103, LAB15, [id number] ####Lease Administration Supervisor: CHELSIE ISAACS ([phone])[facility])[address] [place] [address] [place] Phosphate [Moles/Vol]on 01-11 Phosphate [Mass/Vol] 4 mg/dL 2.3 - 4 .7 mg/dL [facility] Progress Noteon 01-26-2025 Progress Note Normal [facility] Progress Note Normal [facility] Progress Note Normal [facility] Progress Note Normal [facility] CBC (HEMOGRAM)on 01-25-2025 Erythrocyte distribution width (RBC) [Ratio] 16.5 % High 11.5-15.0 [facility] Comment on above: Performed By: #### L [id number] ####Lease Administration Supervisor: CHELSIE ISAACS ([phone])[facility])[address] [place] [address] Hematocrit (Bld) [Volume fraction] 25.5 % Low 35.0-47.0 [facility] Comment on above: Performed By: #### L [id number] ####Lease Administration Supervisor: CHELSIE ISAACS ([phone])[facility])[address] [place] [address] Hemoglobin (Bld) [Mass/Vol] 7.9 g/dL Low 11.7-16.0 [facility] Comment on above: Performed By: #### L [id number] ####Lease Administration Supervisor: CHELSIE ISAACS ([phone])[facility])[address] [place] [address] MCH (RBC) [Entitic mass] 29.5 pg Normal 26.0-34.0 [facility] Comment on above: Performed By: #### L [id number] ####Lease Administration Supervisor: CHELSIE ISAACS ([phone])[facility])[address] [place] [address] MCHC 31.0 % Normal 30.5-36.0 [facility] Comment on above: Performed By: #### L [id number] ####Lease Administration Supervisor: CHELSIE ISAACS ([phone])[facility])[address] [place] [address] MCV (RBC) [Entitic vol] 95.1 fL Normal 77.0-99.0 [facility] [facility] Comment on above: Performed By: #### L [id number] ####Lease Administration Supervisor: CHELSIE ISAACS ([phone])[facility])[address] [place] [address] Platelet mean volume (Bld) [Entitic vol] 10.2 fL Normal 9.0-12.7 [facility] Comment on above: Performed By: #### L AB294 ####Lease Administration Supervisor: CHELSIE ISAACS ([phone])[facility])[address] [place] [address] [place] Platelets (Bld) [#/Vol] 317 10*3/uL Normal 140-440 [facility] Comment on above: Performed By: #### L AB294 ####Lease Administration Supervisor: CHELSIE ISAACS ([phone])[facility])[address] [place] [address] RBC (Bld) [#/Vol] 2.68 10*6/uL Low 3.80-5.20 [facility] Comment on above: Performed By: #### L AB294 ####Lease Administration Supervisor: CHELSIE ISAACS ([phone])[facility] ([facility])[address] [place] [address] WBC (Bld) [#/Vol] 7.1 10*3/uL Normal 3.6-10.7 [facility] Comment on above: Performed By: #### L AB294 ####Lease Administration Supervisor: CHELSIE ISAACS ([phone])[facility] [place] [address] CBC panel Auto (Bld)on 01-25 Erythrocyte distribution width (RBC) [Ratio] 16.5 % High 11.5 - 15.0 % [facility] Hematocrit (Bld) [Volume fraction] 25.5 % Low 35.0 - 47.0 % [facility] Hemoglobin (Bld) [Mass/Vol] 7.9 g/dL Low 11.7 - 16.0 g/dL [facility] Interpretation and review of laboratory results Abnormal [facility] MCH (RBC) [Entitic mass] 29.5 pg 26. 0 - 34.0 pg [facility] MCHC (RBC) [Mass/Vol] 31 % 30.5 - 36.0 % [facility] MCV (RBC) [Entitic vol] 95.1 fL 77.0 - 99.0 fL [facility] Platelet mean volume (Bld) [Entitic vol] 10.2 fL 9.0 - 12.7 fL [facility] Platelets (Bld) [#/Vol] 317 10*3/uL 140 - 440 10*3/uL [facility] RBC (Bld) [#/Vol] 2.68 10*6/uL Low 3.80 - 5.2 0 10*6/uL [facility] WBC (Bld) [#/Vol] 7.1 10*3/uL 3.6 - 10.7 10*3/uL [facility] COMPREHENSIVE METABOLIC PANE Lino 01-25-2025 Albumin [Mass/Vol] 3.0 g/dL Low 3.4-4.8 [facility] Comment on above: Performed By: #### L AB17, [id number], [id number] ####Lease Administration Supervisor: CHELSIE ISAACS ([phone])[facility] [place] [address] ALP [Catalytic activity/Vol] 69 U/L Normal 40-150 [facility] Comment on above: Performed By: #### L AB17, QVQ554, [id number] ####Lease Administration Supervisor: CHELSIE ISAACS ([phone])[facility] ([facility])[address] [place] [address] ALT [Catalytic activity/Vol] 33 U/L High <30 [facility] Comment on above: Performed By: #### L AB17, [id number], [id number] ####Lease Administration Supervisor: CHELSIE ISAACS ([phone])[facility] ([facility])[address] [place] [address] Anion gap [Moles/Vol] 10 mmol/L Normal 3-13 [facility] Comment on above: Performed By: #### Joseph AB17, [id number], HOF556 ####Lease Administration Supervisor: CHELSIE ISAACS ([phone])[facility] ([facility])[address] [place] [address] AST [Catalytic activity/Vol] 30 U/L Normal <34 [facility] Comment on above: Performed By: #### Joseph AB17, [id number], [id number] ####Lease Administration Supervisor: CHELSIE ISAACS ([phone])[facility] ([facility])[address] [place] [address] Bilirubin [Mass/Vol] 0.5 mg/dL Normal <1.2 [facility] Comment on above: Performed By: #### Joseph AB17, [id number], [id number] ####Lease Administration Supervisor: CHELSIE ISAACS ([phone])[facility] ([facility])[address] [place] [address] Calcium [Mass/Vol] 8.6 mg/dL Low 8.8-10.0 [facility] Comment on above: Performed By: #### L AB17, JYD412, UMP065 ####Lease Administration Supervisor: CHELSIE ISAACS ([phone])[facility] ([facility])[address] [place] [address] [place] Chloride [Moles/Vol] 112 mmol/L High 98-107 [facility] Comment on above: Performed By: #### L AB17, [id number], [id number] ####Lease Administration Supervisor: CHELSIE ISAACS ([phone])[facility])[address] [place] [address] CO2 [Moles/Vol] 20 mmol/L Low 23-31 [facility] Comment on above: Performed By: #### L AB17, DMQ548, [id number] ####Lease Administration Supervisor: CHELSIE ISAACS ([phone])[facility])[address] [place] [address] Creatinine [Mass/Vol] 0.76 mg/dL Normal 0.57-1.11 [facility] Comment on above: Performed By: #### Joseph AB17, NFD801, IOK056 ####Lease Administration Supervisor: CHELSIE ISAACS ([phone])[facility])[address] [place] [address] [place] GLOMERULAR FILTRATION RATE ML/MIN/1.73 SQ M.PREDICTED 80.3 mL/min/1.73m*2 Normal >60.0 [facility] Comment on above: Result Comment: Calc ulation based on the Chronic Kidney Disease Epidemiology Collaboration (CKD-EPI) equation refit without adjustment for race Performed By: #### Joseph AB17, DSP780, RIU663 ####Lease Administration Supervisor: CHELSIE ISAACS ([phone])[facility])[address] [place] [address] Glucose [Mass/Vol] 103 mg/dL Normal 82-115 [facility] Comment on above: Performed By: #### L AB17, CDH661, [id number] ####Lease Administration Supervisor: CHELSIE ISAACS ([phone])[facility])[address] [place] [address] [place] Potassium [Moles/Vol] 3.2 mmol/L Low 3.5-5.1 [facility] Comment on above: Result Comment: [facility] potassium values may be up to 0.5 mmol/L lower than serum values. Performed By: #### L AB17, TVQ037, YOV196 ####Lease Administration Supervisor: CHELSIE ISAACS ([phone])[facility])[address] [place] [address] Protein [Mass/Vol] 6.2 g/dL Low 6.4-8.3 [facility] Comment on above: Performed By: #### L AB17, [id number], [id number] ####Lease Administration Supervisor: CHELSIE ISAACS ([phone])[facility])[address] [place] [address] Sodium [Moles/Vol] 142 mmol/L Normal 136-145 [facility] Comment on above: Performed By: #### L AB17, DSI005, [id number] ####Lease Administration Supervisor: CHELSIE ISAACS ([phone])[facility])[address] [place] [address] Urea nitrogen [Mass/Vol] 18 mg/dL Normal 9-23 [facility] Comment on above: Performed By: #### L AB17, [id number], [id number] ####Lease Administration Supervisor: CHELSIE ISAACS ([phone])[facility] ([facility])[address] [place] [address] Comprehensive metabolic 1998 panelon 01-25-2025 Albumin [Mass/Vol] 3 g/dL Low 3.4 - 4.8 g/dL [facility] ALP [Catalytic activity/Vol] 69 U/L 40 - 150 U/L [facility] ALT [Catalytic activity/Vol] 33 U/L High NINF - 30 U/L [facility] Anion gap [Moles/Vol] 10 mmol/L 3 - 13 mmol/L [facility] AST [Catalytic activity/Vol] 30 U/L NINF - 34 U/L [facility] Bilirubin [Mass/Vol] 0.5 mg/dL NINF - 1.2 mg/dL [facility] Calcium [Mass/Vol] 8.6 mg/dL Low 8.8 - 10. 0 mg/dL [facility] Chloride [Moles/Vol] 112 mmol/L High 98 - 10 7 mmol/L [facility] CO2 [Moles/Vol] 20 mmol/L Low 23 - 31 mmol/L [facility] Creatinine [Mass/Vol] 0.76 mg/dL 0.57 - 1.11 mg/dL [facility] GFR/1.73 sq M.predicted (S/P/Bld) [Vol rate/Area] 80.3 mL/min - PINF [facility] Glucose [Mass/Vol] 103 mg/dL 82 - 115 mg/dL [facility] Interpretation and review of laboratory results Abnormal [facility] Potassium [Moles/Vol] 3.2 mmol/L Low 3.5 - 5.1 mmol/L [facility] Protein [Mass/Vol] 6.2 g/dL Low 6.4 - 8.3 g/dL [facility] Sodium [Moles/Vol] 142 mmol/L 136 - 145 mmol/L [facility] Urea nitrogen [Mass/Vol] 18 mg/dL 9 - 23 mg/d L [facility] Laboratory - Chemistry and C hemistry - challengeon 01-25-2025 Magnesium [Mass/Vol] 1.7 mg/dL 1.6 - 2 .6 mg/dL [facility] MAGNESIUMon 01-25-2025 Magnesium [Mass/Vol] 1.7 mg/dL Normal 1.6-2.6 [facility] Comment on above: Result Comment: SHARA Hand COMMENTS:Higher values can be expected in females during menses. Performed By: #### L AB17, [id number], [id number] ####Lease Administration Supervisor: CHELSIE ISAACS ([phone])[facility])[address] [place] [address] Magnesium [Mass/Vol]on 01-25 Interpretation and review of laboratory results Normal [facility] [place] [facility] [place] No Panel Informationon 01-25 [facility] PHOSPHORUSon 01-25-2025 Phosphate [Mass/Vol] 4.0 mg/dL Normal 2.3-4.7 [facility] Comment on above: Performed By: #### L AB17, [id number], [id number] ####Lease Administration Supervisor: CHELSIE ISAACS ([phone])[facility])[address] [place] [address] [place] Phosphate [Moles/Vol]on 01-11 Interpretation and review of laboratory results Normal [facility] Phosphate [Mass/Vol] 4 mg/dL 2.3 - 4 .7 mg/dL [facility] Progress Noteon 01-25-2025 Progress Note Normal [facility] XR CHEST 1 VIEWon 01-25-2025 XR CHEST 1 VIEW Normal [facility] XR Chest Single viewon 01-25 [facility] Radiology Study observation (narrative) Leda [facility] XR Chest Single viewOrdered By: Hope Villeda on 01-25-2025 [facility] [email or web address] Work Phone: 30on 01-24-2025 30 Normal [facility] 30 Normal [facility] 30 Normal [facility] CBC (HEMOGRAM)on 01-24-2025 Erythrocyte distribution width (RBC) [Ratio] 16.7 % High 11.5-15.0 [facility] Comment on above: Performed By: #### L AB294 ####Lease Administration Supervisor: CHELSIE ISAACS ([phone])[facility])[address] [place] [address] Hematocrit (Bld) [Volume fraction] 27.5 % Low 35.0-47.0 [facility] Comment on above: Performed By: #### L AB294 ####Lease Administration Supervisor: CHELSIE ISAACS ([phone])[address] Hemoglobin (Bld) [Mass/Vol] 8.6 g/dL Low 11.7-16.0 [facility] Comment on above: Performed By: #### L AB294 ####Lease Administration Supervisor: CHELSIE ISAACS ([phone])[facility])[address] [place] [address] MCH (RBC) [Entitic mass] 29.4 pg Normal 26.0-34.0 [facility] Comment on above: Performed By: #### L AB294 ####Lease Administration Supervisor: CHELSIE ISAACS ([phone])[address] MCHC 31.3 % Normal 30.5-36.0 [facility] Comment on above: Performed By: #### L AB294 ####Lease Administration Supervisor: CHELISE ISAACS ([phone])[facility] ([facility])[address] [place] [address] MCV (RBC) [Entitic vol] 93.9 fL Normal 77.0-99.0 [facility] Comment on above: Performed By: #### L AB294 ####Lease Administration Supervisor: CHELSIE ISAACS ([phone])[facility])[address] [place] [address] Platelet mean volume (Bld) [Entitic vol] 10.0 fL Normal 9.0-12.7 [facility] Comment on above: Performed By: #### L AB294 ####Lease Administration Supervisor: CHELSIE ISAACS ([phone])[facility])[address] [place] [address] Platelets (Bld) [#/Vol] 310 10*3/uL Normal 140-440 [facility] Comment on above: Performed By: #### L AB294 ####Lease Administration Supervisor: CHELSIE ISAACS ([phone])[facility])[address] [place] [address] RBC (Bld) [#/Vol] 2.93 10*6/uL Low 3.80-5.20 [facility] Comment on above: Performed By: #### L AB294 ####Lease Administration Supervisor: CHELSIE ISAACS ([phone])[facility])[address] [place] [address] WBC (Bld) [#/Vol] 8.9 10*3/uL Normal 3.6-10.7 [facility] Comment on above: Performed By: #### L AB294 ####Lease Administration Supervisor: CHELSIE ISAACS ([phone])[facility])[address] [place] [address] CBC panel Auto (Bld)on 01-24 Erythrocyte distribution width (RBC) [Ratio] 16.7 % High 11.5 - 15.0 % [facility] Hematocrit (Bld) [Volume fraction] 27.5 % Low 35.0 - 47.0 % [facility] Hemoglobin (Bld) [Mass/Vol] 8.6 g/dL Low 11.7 - 16.0 g/dL [facility] Interpretation and review of laboratory results Abnormal [facility] MCH (RBC) [Entitic mass] 29.4 pg 26. 0 - 34.0 pg [facility] MCHC (RBC) [Mass/Vol] 31.3 % 30.5 - 36.0 % [facility] MCV (RBC) [Entitic vol] 93.9 fL 77.0 - 99.0 fL [facility] Platelet mean volume (Bld) [Entitic vol] 10 fL 9.0 - 12.7 fL [facility] Platelets (Bld) [#/Vol] 310 10*3/uL 140 - 440 10*3/uL [facility] RBC (Bld) [#/Vol] 2.93 10*6/uL Low 3.80 - 5.2 0 10*6/uL [facility] WBC (Bld) [#/Vol] 8.9 10*3/uL 3.6 - 10.7 10*3/uL [facility] COMPREHENSIVE METABOLIC PANE Lino 01-24-2025 Albumin [Mass/Vol] 2.9 g/dL Low 3.4-4.8 [facility] Comment on above: Performed By: #### Joseph PENALOZA, LAB17, [id number] ####Lease Administration Supervisor: CHELSIE ISAACS ([phone])[facility])[address] [place] [address] ALP [Catalytic activity/Vol] 69 U/L Normal 40-150 [facility] Comment on above: Performed By: #### Joseph PENALOZA, LAB17, [id number] ####Lease Administration Supervisor: CHELSIE ISAACS ([phone])[facility] ([facility])[address] [place] [address] ALT [Catalytic activity/Vol] 31 U/L High <30 [facility] Comment on above: Performed By: #### Joseph PENALOZA, LAB17, [id number] ####Lease Administration Supervisor: CHELSIE ISAACS ([phone])[facility] ([facility])[address] [place] [address] Anion gap [Moles/Vol] 8 mmol/L Normal 3-13 [facility] Comment on above: Performed By: #### L AB103, LAB17, [id number] ####Lease Administration Supervisor: CHELSIE ISAACS ([phone])[facility])[address] [place] [address] AST [Catalytic activity/Vol] 29 U/L Normal <34 [facility] Comment on above: Performed By: #### Joseph ABSharon, LAB17, [id number] ####Lease Administration Supervisor: CHELSIE ISAACS ([phone])[facility] ([facility])[address] [place] [address] Bilirubin [Mass/Vol] 0.6 mg/dL Normal <1.2 [facility] Comment on above: Performed By: #### Joseph PENALOZA, LAB17, [id number] ####Lease Administration Supervisor: CHELSIE ISAACS ([phone])[facility])[address] [place] [address] Calcium [Mass/Vol] 8.5 mg/dL Low 8.8-10.0 [facility] Comment on above: Performed By: #### Joseph PENALOZA, LAB17, [id number] ####Lease Administration Supervisor: CHELSIE ISAACS ([phone])[facility] ([facility])[address] [place] [address] Chloride [Moles/Vol] 110 mmol/L High 98-107 [facility] Comment on above: Performed By: #### Joseph PENALOZA, LAB17, [id number] ####Lease Administration Supervisor: CHELSIE ISAACS ([phone])[facility] ([facility])[address] [place] [address] CO2 [Moles/Vol] 22 mmol/L Low 23-31 [facility] Comment on above: Performed By: #### Joseph PENALOZA, LAB17, [id number] ####Lease Administration Supervisor: CHELSIE ISAACS ([phone])[facility])[address] [place] [address] Creatinine [Mass/Vol] 0.78 mg/dL Normal 0.57-1.11 [facility] Comment on above: Performed By: #### L AB103, LAB17, [id number] ####Lease Administration Supervisor: CHELSIE ISAACS ([phone])[facility])[address] [place] [address] [place] GLOMERULAR FILTRATION RATE ML/MIN/1.73 SQ M.PREDICTED 77.9 mL/min/1.73m*2 Normal >60.0 [facility] Comment on above: Result Comment: Calc ulation based on the Chronic Kidney Disease Epidemiology Collaboration (CKD-EPI) equation refit without adjustment for race Performed By: #### L AB103, LAB17, [id number] ####Lease Administration Supervisor: CHELSIE ISAACS ([phone])[address] Glucose [Mass/Vol] 98 mg/dL Normal 82-115 [facility] Comment on above: Performed By: #### L AB103, LAB17, [id number] ####Lease Administration Supervisor: CHELSIE ISAACS ([phone])[address] Potassium [Moles/Vol] 3.2 mmol/L Low 3.5-5.1 [facility] Comment on above: Result Comment: [facility] potassium values may be up to 0.5 mmol/L lower than serum values. Performed By: #### L AB103, LAB17, [id number] ####Lease Administration Supervisor: CHELSIE ISAACS ([phone])[address] Protein [Mass/Vol] 6.0 g/dL Low 6.4-8.3 [facility] Comment on above: Performed By: #### L AB103, LAB17, HCI230 ####Lease Administration Supervisor: CHELSIE ISAACS ([phone])[address] Sodium [Moles/Vol] 140 mmol/L Normal 136-145 [facility] Comment on above: Performed By: #### L AB103, LAB17, [id number] ####Lease Administration Supervisor: CHELSIE ISAACS ([phone])[address] [place] [address] [place] Urea nitrogen [Mass/Vol] 19 mg/dL Normal 9-23 [facility] Comment on above: Performed By: #### L AB103, LAB17, [id number] ####Lease Administration Supervisor: CHELSIE ISAACS ([phone])[facility] [place] [address] Comprehensive metabolic 1998 panelon 01-24-2025 Albumin [Mass/Vol] 2.9 g/dL Low 3.4 - 4.8 g/dL [facility] ALP [Catalytic activity/Vol] 69 U/L 40 - 150 U/L [facility] ALT [Catalytic activity/Vol] 31 U/L High NINF - 30 U/L [facility] Anion gap [Moles/Vol] 8 mmol/L 3 - 13 mmol/L [facility] AST [Catalytic activity/Vol] 29 U/L NINF - 34 U/L [facility] Bilirubin [Mass/Vol] 0.6 mg/dL NINF - 1.2 mg/dL [facility] Calcium [Mass/Vol] 8.5 mg/dL Low 8.8 - 10. 0 mg/dL [facility] Chloride [Moles/Vol] 110 mmol/L High 98 - 10 7 mmol/L [facility] CO2 [Moles/Vol] 22 mmol/L Low 23 - 31 mmol/L [facility] Creatinine [Mass/Vol] 0.78 mg/dL 0.57 - 1.11 mg/dL [facility] GFR/1.73 sq M.predicted (S/P/Bld) [Vol rate/Area] 77.9 mL/min - PINF [facility] Glucose [Mass/Vol] 98 mg/dL 82 - 115 mg/dL [facility] Interpretation and review of laboratory results Abnormal [facility] Potassium [Moles/Vol] 3.2 mmol/L Low 3.5 - 5.1 mmol/L [facility] Protein [Mass/Vol] 6 g/dL Low 6.4 - 8.3 g/dL [facility] Sodium [Moles/Vol] 140 mmol/L 136 - 145 mmol/L [facility] Urea nitrogen [Mass/Vol] 19 mg/dL 9 - 23 mg/d L [facility] Laboratory - Chemistry and C hemistry - challengeon 01-24-2025 Magnesium [Mass/Vol] 1.7 mg/dL 1.6 - 2 .6 mg/dL [facility] MAGNESIUMon 01-24-2025 Magnesium [Mass/Vol] 1.7 mg/dL Normal 1.6-2.6 [facility] Comment on above: Result Comment: SHARA Hand COMMENTS:Higher values can be expected in females during menses. Performed By: #### L AB103, LAB17, [id number] ####Lease Administration Supervisor: CHELSIE ISAACS ([phone])[facility] ([facility])[address] [place] [address] Magnesium [Mass/Vol]on 01-24 Interpretation and review of laboratory results Normal [facility] [place] [facility] [place] No Panel Informationon 01-24 [facility] PHOSPHORUSon 01-24-2025 Phosphate [Mass/Vol] 3.9 mg/dL Normal 2.3-4.7 [facility] Comment on above: Performed By: #### L AB103, LAB17, AHR338 ####Lease Administration Supervisor: CHELSIE ISAACS ([phone])[facility] ([facility])[address] [place] [address] [place] Phosphate [Moles/Vol]on 01-11 Interpretation and review of laboratory results Normal [facility] Phosphate [Mass/Vol] 3.9 mg/dL 2.3 - 4 .7 mg/dL [facility] Progress Noteon 01-24-2025 Progress Note Normal [facility] 30on 01-23-2025 30 Normal [facility] 30 Normal [facility] [id number] 01-23-2025 [id number] Normal [facility] CBC (HEMOGRAM)on 01-23-2025 Erythrocyte distribution width (RBC) [Ratio] 17.0 % High 11.5-15.0 [facility] Comment on above: Performed By: #### L AB294 ####Lease Administration Supervisor: CHELSIE ISAACS ([phone])[facility] ([facility])[address] [place] [address] Hematocrit (Bld) [Volume fraction] 26.4 % Low 35.0-47.0 [facility] Comment on above: Performed By: #### L AB294 ####Lease Administration Supervisor: CHELSIE ISAACS ([phone])[facility] ([facility])[address] [place] [address] Hemoglobin (Bld) [Mass/Vol] 8.5 g/dL Low 11.7-16.0 [facility] Comment on above: Performed By: #### L AB294 ####Lease Administration Supervisor: CHELSIE ISAACS ([phone])[facility] ([facility])[address] [place] [address] MCH (RBC) [Entitic mass] 29.9 pg Normal 26.0-34.0 [facility] Comment on above: Performed By: #### L AB294 ####Lease Administration Supervisor: CHELSIE ISAACS ([phone])[facility])[address] [place] [address] MCHC 32.2 % Normal 30.5-36.0 [facility] Comment on above: Performed By: #### L AB294 ####Lease Administration Supervisor: CHELSIE ISAACS ([phone])[facility] ([facility])[address] [place] [address] MCV (RBC) [Entitic vol] 93.0 fL Normal 77.0-99.0 [facility] Comment on above: Performed By: #### L AB294 ####Lease Administration Supervisor: CHELSIE ISAACS ([phone])[facility] ([facility])[address] [place] [address] Platelet mean volume (Bld) [Entitic vol] 9.8 fL Normal 9.0-12.7 [facility] Comment on above: Performed By: #### L AB294 ####Lease Administration Supervisor: CHELSIE ISAACS ([phone])[facility])[address] [place] [address] Platelets (Bld) [#/Vol] 312 10*3/uL Normal 140-440 [facility] Comment on above: Performed By: #### L AB294 ####Lease Administration Supervisor: CHELSIE ISAACS ([phone])[facility] ([facility])[address] [place] [address] RBC (Bld) [#/Vol] 2.84 10*6/uL Low 3.80-5.20 [facility] Comment on above: Performed By: #### L [id number] ####Lease Administration Supervisor: CHELSIE ISAACS ([phone])[facility] ([facility])[address] [place] [address] WBC (Bld) [#/Vol] 10.4 10*3/uL Normal 3.6-10.7 [facility] Comment on above: Performed By: #### L [id number] ####Lease Administration Supervisor: CHELSIE ISAACS ([id number])[facility] ([facility])[address] [place] [address] CBC panel Auto (Bld)on 01-23 Erythrocyte distribution width (RBC) [Ratio] 17 % High 11.5 - 15.0 % [facility] Hematocrit (Bld) [Volume fraction] 26.4 % Low 35.0 - 47.0 % [facility] Hemoglobin (Bld) [Mass/Vol] 8.5 g/dL Low 11.7 - 16.0 g/dL [facility] Interpretation and review of laboratory results Abnormal [facility] MCH (RBC) [Entitic mass] 29.9 pg 26. 0 - 34.0 pg [facility] MCHC (RBC) [Mass/Vol] 32.2 % 30.5 - 36.0 % [facility] MCV (RBC) [Entitic vol] 93 fL 77.0 - 99.0 fL [facility] Platelet mean volume (Bld) [Entitic vol] 9.8 fL 9.0 - 12.7 fL [facility] Platelets (Bld) [#/Vol] 312 10*3/uL 140 - 440 10*3/uL [facility] RBC (Bld) [#/Vol] 2.84 10*6/uL Low 3.80 - 5.2 0 10*6/uL [facility] WBC (Bld) [#/Vol] 10.4 10*3/uL 3.6 - 10.7 10*3/uL [facility] COMPREHENSIVE METABOLIC PANE Lino 01-23-2025 Albumin [Mass/Vol] 3.1 g/dL Low 3.4-4.8 [facility] Comment on above: Performed By: #### Joseph HERNANDEZ, LAB17, [id number] ####Lease Administration Supervisor: CHELSIE ISAACS ([phone])[facility] ([facility])[address] [place] [address] ALP [Catalytic activity/Vol] 76 U/L Normal 40-150 [facility] Comment on above: Performed By: #### Joseph HERNANDEZ, LAB17, [id number] ####Lease Administration Supervisor: CHELSIE ISAACS ([phone])[facility] ([facility])[address] [place] [address] ALT [Catalytic activity/Vol] 35 U/L High <30 [facility] Comment on above: Performed By: #### Joseph HERNANDEZ, LAB17, [id number] ####Lease Administration Supervisor: CHELSIE ISAACS ([phone])[facility] ([facility])[address] [place] [address] Anion gap [Moles/Vol] 10 mmol/L Normal 3-13 [facility] Comment on above: Performed By: #### Joseph HERNANDEZ, LAB17, [id number] ####Lease Administration Supervisor: CHELSIE ISAACS ([phone])[facility] ([facility])[address] [place] [address] AST [Catalytic activity/Vol] 34 U/L High <34 [facility] Comment on above: Performed By: #### Joseph HERNANDEZ, LAB17, [id number] ####Lease Administration Supervisor: CHELSIE ISAACS ([phone])[facility] ([facility])[address] [place] [address] Bilirubin [Mass/Vol] 0.8 mg/dL Normal <1.2 [facility] Comment on above: Performed By: #### Joseph ABChelsea, LAB17, [id number] ####Lease Administration Supervisor: CHELSIE ISAACS ([phone])[facility] ([facility])[address] [place] [address] Calcium [Mass/Vol] 8.6 mg/dL Low 8.8-10.0 [facility] Comment on above: Performed By: #### L AB113, LAB17, [id number] ####Lease Administration Supervisor: CHELSIE ISAACS ([phone])[facility])[address] [place] [address] Chloride [Moles/Vol] 109 mmol/L High 98-107 [facility] Comment on above: Performed By: #### L AB113, LAB17, [id number] ####Lease Administration Supervisor: CHELSIE ISAACS ([phone])[facility])[address] [place] [address] CO2 [Moles/Vol] 22 mmol/L Low 23-31 [facility] Comment on above: Performed By: #### Joseph AB113, LAB17, [id number] ####Lease Administration Supervisor: CHELSIE ISAACS ([phone])[facility])[address] [place] [address] Creatinine [Mass/Vol] 0.85 mg/dL Normal 0.57-1.11 [facility] Comment on above: Performed By: #### Joseph AB113, LAB17, [id number] ####Lease Administration Supervisor: CHELSIE ISAACS ([phone])[facility])[address] [place] [address] GLOMERULAR FILTRATION RATE ML/MIN/1.73 SQ M.PREDICTED 70.2 mL/min/1.73m*2 Normal >60.0 [facility] Comment on above: Result Comment: Calc ulation based on the Chronic Kidney Disease Epidemiology Collaboration (CKD-EPI) equation refit without adjustment for race Performed By: #### L AB113, LAB17, [id number] ####Lease Administration Supervisor: CHELSIE ISAACS ([phone])[facility] ([facility])[address] [place] [address] [place] Glucose [Mass/Vol] 104 mg/dL Normal 82-115 [facility] Comment on above: Performed By: #### L AB113, LAB17, [id number] ####Lease Administration Supervisor: CHELSIE ISAACS ([phone])[facility])[address] [place] [address] [place] Potassium [Moles/Vol] 3.5 mmol/L Normal 3.5-5.1 [facility] Comment on above: Result Comment: [facility] potassium values may be up to 0.5 mmol/L lower than serum values. Performed By: #### L AB113, LAB17, [id number] ####Lease Administration Supervisor: CHELSIE ISAACS ([phone])[facility])[address] [place] [address] Protein [Mass/Vol] 6.4 g/dL Normal 6.4-8.3 [facility] Comment on above: Performed By: #### L AB113, LAB17, [id number] ####Lease Administration Supervisor: CHELSIE ISAACS ([phone])[facility])[address] [place] [address] Sodium [Moles/Vol] 141 mmol/L Normal 136-145 [facility] Comment on above: Performed By: #### L AB113, LAB17, [id number] ####Lease Administration Supervisor: CHELSIE ISAACS ([phone])[facility] ([facility])[address] [place] [address] Urea nitrogen [Mass/Vol] 17 mg/dL Normal 9-23 [facility] Comment on above: Performed By: #### L AB113, LAB17, [id number] ####Lease Administration Supervisor: CHELSIE ISAACS ([phone])[address] Comprehensive metabolic 1998 panelon 01-23-2025 Albumin [Mass/Vol] 3.1 g/dL Low 3.4 - 4.8 g/dL [facility] ALP [Catalytic activity/Vol] 76 U/L 40 - 150 U/L [facility] ALT [Catalytic activity/Vol] 35 U/L High NINF - 30 U/L [facility] Anion gap [Moles/Vol] 10 mmol/L 3 - 13 mmol/L [facility] AST [Catalytic activity/Vol] 34 U/L High NINF - 34 U/L [facility] Bilirubin [Mass/Vol] 0.8 mg/dL NINF - 1.2 mg/dL [facility] Calcium [Mass/Vol] 8.6 mg/dL Low 8.8 - 10. 0 mg/dL [facility] Chloride [Moles/Vol] 109 mmol/L High 98 - 10 7 mmol/L [facility] CO2 [Moles/Vol] 22 mmol/L Low 23 - 31 mmol/L [facility] Creatinine [Mass/Vol] 0.85 mg/dL 0.57 - 1.11 mg/dL [facility] GFR/1.73 sq M.predicted (S/P/Bld) [Vol rate/Area] 70.2 mL/min - PINF [facility] Glucose [Mass/Vol] 104 mg/dL 82 - 115 mg/dL [facility] Interpretation and review of laboratory results Abnormal [facility] Potassium [Moles/Vol] 3.5 mmol/L 3.5 - 5.1 mmol/L [facility] Protein [Mass/Vol] 6.4 g/dL 6.4 - 8.3 g/dL [facility] Sodium [Moles/Vol] 141 mmol/L 136 - 145 mmol/L [facility] Urea nitrogen [Mass/Vol] 17 mg/dL 9 - 23 mg/d L [facility] Consulton 01-23-2025 Consult Normal [facility] Laboratory - Chemistry and C hemistry - challengeon 01-23-2025 Magnesium [Mass/Vol] 1.7 mg/dL 1.6 - 2 .6 mg/dL [facility] MAGNESIUMon 01-23-2025 Magnesium [Mass/Vol] 1.7 mg/dL Normal 1.6-2.6 [facility] Comment on above: Result Comment: SHARA Hand COMMENTS:Higher values can be expected in females during menses. Performed By: #### L AB113, LAB17, [id number] ####Lease Administration Supervisor: CHELSIE ISAACS ([phone])[facility] ([address] Magnesium [Mass/Vol]on 01-23 [facility] No Panel Informationon 01-23 [facility] Interpretation and review of laboratory results Normal [facility] PHOSPHORUSon 01-23-2025 Phosphate [Mass/Vol] 3.3 mg/dL Normal 2.3-4.7 [facility] Comment on above: Performed By: #### L AB113, LAB17, [id number] ####Lease Administration Supervisor: CHELSIE ISAACS ([phone])[facility] ([facility])[address] [place] [address] [place] Phosphate [Moles/Vol]on 01-11 Phosphate [Mass/Vol] 3.3 mg/dL 2.3 - 4 .7 mg/dL [facility] Progress Noteon 01-23-2025 Progress Note Normal [facility] Progress [facility] Normal [facility] Progress Note Normal [facility] US Heart Transesophagealon 0 01-23-2025 CV CPACS HEMO US Heart TransesophagealOrde red By: Paxton Sousa on 01-23-2025 [facility] Work Phone: XR CHEST 1 VIEWon 01-23-2025 XR CHEST 1 VIEW Normal [facility] XR Chest Single viewon 01-23 [facility] Radiology Study observation (narrative) [facility] [id number] 01-22-[id number] [facility] insurance authorization. Normal [facility] [id number] Normal [facility] CBC (HEMOGRAM)on 01-22-2025 Erythrocyte distribution width (RBC) [Ratio] 16.8 % High 11.5-15.0 [facility] Comment on above: Performed By: #### L AB294 ####Lease Administration Supervisor: CHELSIE ISAACS ([phone])[facility] ([facility])[address] [place] [address] Hematocrit (Bld) [Volume fraction] 28.0 % Low 35.0-47.0 [facility] Comment on above: Performed By: #### L AB294 ####Lease Administration Supervisor: CHELSIE ISAACS ([phone])[facility] ([facility])[address] [place] [address] Hemoglobin (Bld) [Mass/Vol] 8.9 g/dL Low 11.7-16.0 [facility] Comment on above: Performed By: #### L AB294 ####Lease Administration Supervisor: CHELSIE ISAACS ([phone])[facility] ([facility])[address] [place] [address] MCH (RBC) [Entitic mass] 29.8 pg Normal 26.0-34.0 [facility] Comment on above: Performed By: #### L AB294 ####Lease Administration Supervisor: CHELSIE ISAACS ([phone])[facility] ([facility])[address] [place] [address] MCHC 31.8 % Normal 30.5-36.0 [facility] Comment on above: Performed By: #### L AB294 ####Lease Administration Supervisor: CHELSIE ISAACS ([phone])[facility])[address] [place] [address] MCV (RBC) [Entitic vol] 93.6 fL Normal 77.0-99.0 [facility] Comment on above: Performed By: #### L AB294 ####Lease Administration Supervisor: CHELSIE ISAACS ([phone])[facility] ([facility])[address] [place] [address] Platelet mean volume (Bld) [Entitic vol] 9.9 fL Normal 9.0-12.7 [facility] Comment on above: Performed By: #### L AB294 ####Lease Administration Supervisor: CHELSIE ISAACS ([phone])[facility] ([facility])[address] [place] [address] Platelets (Bld) [#/Vol] 308 10*3/uL Normal 140-440 [facility] Comment on above: Performed By: #### L AB294 ####Lease Administration Supervisor: CHELSIE ISAACS ([phone])[facility] ([facility])[address] [place] [address] RBC (Bld) [#/Vol] 2.99 10*6/uL Low 3.80-5.20 [facility] Comment on above: Performed By: #### L AB294 ####Lease Administration Supervisor: CHELSIE ISAACS ([phone])[facility])[address] [place] [address] WBC (Bld) [#/Vol] 9.7 10*3/uL Normal 3.6-10.7 [facility] Comment on above: Performed By: #### L AB294 ####Lease Administration Supervisor: CHELSIE ISAACS ([phone])[facility] ([facility])[address] [place] [address] CBC panel Auto (Bld)on 01-22 Erythrocyte distribution width (RBC) [Ratio] 16.8 % High 11.5 - 15.0 % [facility] Hematocrit (Bld) [Volume fraction] 28 % Low 35.0 - 47.0 % [facility] Hemoglobin (Bld) [Mass/Vol] 8.9 g/dL Low 11.7 - 16.0 g/dL [facility] Interpretation and review of laboratory results Abnormal [facility] MCH (RBC) [Entitic mass] 29.8 pg 26. 0 - 34.0 pg [facility] MCHC (RBC) [Mass/Vol] 31.8 % 30.5 - 36.0 % [facility] MCV (RBC) [Entitic vol] 93.6 fL 77.0 - 99.0 fL [facility] Platelet mean volume (Bld) [Entitic vol] 9.9 fL 9.0 - 12.7 fL [facility] Platelets (Bld) [#/Vol] 308 10*3/uL 140 - 440 10*3/uL [facility] RBC (Bld) [#/Vol] 2.99 10*6/uL Low 3.80 - 5.2 0 10*6/uL [facility] WBC (Bld) [#/Vol] 9.7 10*3/uL 3.6 - 10.7 10*3/uL [facility] COMPREHENSIVE METABOLIC PANE Lino 01-22-2025 Albumin [Mass/Vol] 3.1 g/dL Low 3.4-4.8 [facility] Comment on above: Performed By: #### L AB113, [id number], LAB17 ####Lease Administration Supervisor: CHELSIE ISAACS ([phone])[facility] [place] [address] ALP [Catalytic activity/Vol] 83 U/L Normal 40-150 [facility] Comment on above: Performed By: #### L AB113, [id number], LAB17 ####Lease Administration Supervisor: CHELSIE ISAACS ([phone])[facility] ([facility])[address] [place] [address] ALT [Catalytic activity/Vol] 38 U/L High <30 [facility] Comment on above: Performed By: #### L AB113, PCH801, LAB17 ####Lease Administration Supervisor: CHELSIE ISAACS ([phone])[facility] ([facility])[address] [place] [address] Anion gap [Moles/Vol] 9 mmol/L Normal 3-13 [facility] Comment on above: Performed By: #### Joseph AB113, [id number], LAB17 ####Lease Administration Supervisor: CHELSIE ISAACS ([phone])[facility] ([facility])[address] [place] [address] AST [Catalytic activity/Vol] 31 U/L Normal <34 [facility] Comment on above: Performed By: #### Joseph ABChelsea, [id number], LAB17 ####Lease Administration Supervisor: CHELSIE ISAACS ([phone])[facility] ([facility])[address] [place] [address] Bilirubin [Mass/Vol] 0.8 mg/dL Normal <1.2 [facility] Comment on above: Performed By: #### Joseph ABChelsea, [id number], LAB17 ####Lease Administration Supervisor: CHELSIE ISAACS ([phone])[facility] ([facility])[address] [place] [address] Calcium [Mass/Vol] 8.5 mg/dL Low 8.8-10.0 [facility] Comment on above: Performed By: #### L AB113, [id number], LAB17 ####Lease Administration Supervisor: CHELSIE ISAACS ([phone])[facility] ([facility])[address] [place] [address] Chloride [Moles/Vol] 112 mmol/L High 98-107 [facility] Comment on above: Performed By: #### L AB113, [id number], LAB17 ####Lease Administration Supervisor: CHELSIE ISAACS ([phone])[facility])[address] [place] [address] CO2 [Moles/Vol] 20 mmol/L Low 23-31 [facility] Comment on above: Performed By: #### L AB113, [id number], LAB17 ####Lease Administration Supervisor: CHELSIE ISAACS ([phone])[facility])[address] [place] [address] Creatinine [Mass/Vol] 0.70 mg/dL Normal 0.57-1.11 [facility] Comment on above: Performed By: #### Joseph ABChelsea, [id number], LAB17 ####Lease Administration Supervisor: CHELSIE ISAACS ([phone])[facility])[address] [place] [address] GLOMERULAR FILTRATION RATE ML/MIN/1.73 SQ M.PREDICTED 88.7 mL/min/1.73m*2 Normal >60.0 [facility] Comment on above: Result Comment: Calc ulation based on the Chronic Kidney Disease Epidemiology Collaboration (CKD-EPI) equation refit without adjustment for race Performed By: #### Joseph ABChelsea, [id number], LAB17 ####Lease Administration Supervisor: CHELSIE ISAACS ([phone])[facility])[address] [place] [address] Glucose [Mass/Vol] 106 mg/dL Normal 82-115 [facility] Comment on above: Performed By: #### Joseph AB113, [id number], LAB17 ####Lease Administration Supervisor: CHELSIE ISAACS ([phone])[facility])[address] [place] [address] Potassium [Moles/Vol] 3.2 mmol/L Low 3.5-5.1 [facility] Comment on above: Result Comment: [facility] potassium values may be up to 0.5 mmol/L lower than serum values. Performed By: #### L AB113, [id number], LAB17 ####Lease Administration Supervisor: CHELSIE ISAACS ([phone])[facility] ([facility])[address] [place] [address] Protein [Mass/Vol] 6.3 g/dL Low 6.4-8.3 [facility] Comment on above: Performed By: #### L AB113, [id number], LAB17 ####Lease Administration Supervisor: CHELSIE ISAACS ([phone])[facility] ([facility])[address] [place] [address] Sodium [Moles/Vol] 141 mmol/L Normal 136-145 [facility] Comment on above: Performed By: #### L AB113, [id number], LAB17 ####Lease Administration Supervisor: CHELSIE ISAACS ([phone])[facility] ([facility])[address] [place] [address] Urea nitrogen [Mass/Vol] 18 mg/dL Normal 9-23 [facility] Comment on above: Performed By: #### L AB113, CTI011, LAB17 ####Lease Administration Supervisor: CHELSIE ISAACS ([phone])[facility] [place] [address] Comprehensive metabolic 1998 panelon 01-22-2025 Albumin [Mass/Vol] 3.1 g/dL Low 3.4 - 4.8 g/dL [facility] ALP [Catalytic activity/Vol] 83 U/L 40 - 150 U/L [facility] ALT [Catalytic activity/Vol] 38 U/L High NINF - 30 U/L [facility] Anion gap [Moles/Vol] 9 mmol/L 3 - 13 mmol/L [facility] AST [Catalytic activity/Vol] 31 U/L NINF - 34 U/L [facility] Bilirubin [Mass/Vol] 0.8 mg/dL NINF - 1.2 mg/dL [facility] Calcium [Mass/Vol] 8.5 mg/dL Low 8.8 - 10. 0 mg/dL [facility] Chloride [Moles/Vol] 112 mmol/L High 98 - 10 7 mmol/L [facility] CO2 [Moles/Vol] 20 mmol/L Low 23 - 31 mmol/L [facility] Creatinine [Mass/Vol] 0.7 mg/dL 0.57 - 1.11 mg/dL [facility] GFR/1.73 sq M.predicted (S/P/Bld) [Vol rate/Area] 88.7 mL/min - PINF [facility] Glucose [Mass/Vol] 106 mg/dL 82 - 115 mg/dL [facility] Interpretation and review of laboratory results Abnormal [facility] Potassium [Moles/Vol] 3.2 mmol/L Low 3.5 - 5.1 mmol/L [facility] Protein [Mass/Vol] 6.3 g/dL Low 6.4 - 8.3 g/dL [facility] Sodium [Moles/Vol] 141 mmol/L 136 - 145 mmol/L [facility] Urea nitrogen [Mass/Vol] 18 mg/dL 9 - 23 mg/d L [facility] Laboratory - Chemistry and C hemistry - challengeon 01-22-2025 Potassium [Moles/Vol] 3.8 mmol/L 3.5 - 5.1 mmol/L [facility] Potassium [Moles/Vol] 3.3 mmol/L Low 3.5 - 5.1 mmol/L [facility] Magnesium [Mass/Vol] 1.8 mg/dL 1.6 - 2 .6 mg/dL [facility] MAGNESIUMon 01-22-2025 Magnesium [Mass/Vol] 1.8 mg/dL Normal 1.6-2.6 [facility] Comment on above: Result Comment: SHARA Hand COMMENTS:Higher values can be expected in females during menses. Performed By: #### L AB113, [id number], LAB17 ####Lease Administration Supervisor: CHELSIE ISAACS ([phone])[address] Magnesium [Mass/Vol]on 01-22 [facility] No Panel Informationon 01-22 [facility] Interpretation and review of laboratory results Normal [facility] PHOSPHORUSon 01-22-2025 Phosphate [Mass/Vol] 3.4 mg/dL Normal 2.3-4.7 [facility] Comment on above: Performed By: #### L AB113, [id number], LAB17 ####Lease Administration Supervisor: CHELSIE ISAACS ([phone])[facility] ([facility])[address] [place], [place] [phone] [facility] POTASSIUMon 01-22-2025 Potassium [Moles/Vol] 3.8 mmol/L Normal 3.5-5.1 [facility] Comment on above: Result Comment: [place] potassium values may be up to 0.5 mmol/L lower than serum values. Performed By: #### L AB114 ####Lease Administration Supervisor: CHELSIE ISAACS ([phone])[facility])[address] [place] [address] Potassium [Moles/Vol] 3.3 mmol/L Low 3.5-5.1 [facility] Comment on above: Result Comment: [place] potassium values may be up to 0.5 mmol/L lower than serum values. Performed By: #### L AB114 ####Lease Administration Supervisor: CHELSIE ISAACS ([phone])[facility])[address] [place] [address] Phosphate [Moles/Vol]on 01-11 Phosphate [Mass/Vol] 3.4 mg/dL 2.3 - 4 .7 mg/dL [facility] Potassium [Moles/Vol]on 01-11 Interpretation and review of laboratory results Normal [facility] Interpretation and review of laboratory results Abnormal [facility] Progress Noteon 01-22-2025 Progress Note Normal [facility] Progress Note Normal [facility] 30on 01-21-2025 30 Normal [facility] 30 Normal [facility] [id number] 01-21-2025 [id number] Normal [facility] [id number] Normal [facility] CBC (HEMOGRAM)on 01-21-2025 Erythrocyte distribution width (RBC) [Ratio] 16.3 % High 11.5-15.0 [facility] Comment on above: Performed By: #### L AB294 ####Lease Administration Supervisor: CHELSIE ISAACS ([phone])[facility])[address] [place] [address] Hematocrit (Bld) [Volume fraction] 26.2 % Low 35.0-47.0 [facility] Comment on above: Performed By: #### L AB294 ####Lease Administration Supervisor: CHELSIE [phone])[facility] ([facility])[address] [place] [address] Hemoglobin (Bld) [Mass/Vol] 8.3 g/dL Low 11.7-16.0 [facility] Comment on above: Performed By: #### L AB294 ####Lease Administration Supervisor: CHELSIE ISAACS ([phone])[facility])[address] [place] [address] MCH (RBC) [Entitic mass] 29.7 pg Normal 26.0-34.0 [facility] Comment on above: Performed By: #### L AB294 ####Lease Administration Supervisor: CHELSIE ISAACS ([phone])[facility])[address] [place] [address] MCHC 31.7 % Normal 30.5-36.0 [facility] Comment on above: Performed By: #### L AB294 ####Lease Administration Supervisor: CHELSIE ISAACS ([phone])[facility] ([facility])[address] [place] [address] MCV (RBC) [Entitic vol] 93.9 fL Normal 77.0-99.0 [facility] Comment on above: Performed By: #### L AB294 ####Lease Administration Supervisor: CHELSIE ISAACS ([phone])[facility])[address] [place] [address] Platelet mean volume (Bld) [Entitic vol] 10.1 fL Normal 9.0-12.7 [facility] Comment on above: Performed By: #### L AB294 ####Lease Administration Supervisor: CHELSIE ISAACS ([phone])[facility] ([facility])[address] [place] [address] Platelets (Bld) [#/Vol] 267 10*3/uL Normal 140-440 [facility] Comment on above: Performed By: #### L [id number] ####Lease Administration Supervisor: CHELSIE ISAACS ([phone])[facility])[address] [place] [address] RBC (Bld) [#/Vol] 2.79 10*6/uL Low 3.80-5.20 [facility] Comment on above: Performed By: #### L [id number] ####Lease Administration Supervisor: CHELSIE ISAACS ([phone])[facility] ([facility])[address] [place] [address] WBC (Bld) [#/Vol] 7.2 10*3/uL Normal 3.6-10.7 [facility] Comment on above: Performed By: #### L [id number] ####Lease Administration Supervisor: CHELSIE ISAACS ([phone])[facility] ([facility])[address] [place] [address] CBC panel Auto (Bld)on 01-21 Erythrocyte distribution width (RBC) [Ratio] 16.3 % High 11.5 - 15.0 % [facility] Hematocrit (Bld) [Volume fraction] 26.2 % Low 35.0 - 47.0 % [facility] Hemoglobin (Bld) [Mass/Vol] 8.3 g/dL Low 11.7 - 16.0 g/dL [facility] Interpretation and review of laboratory results Abnormal [facility] MCH (RBC) [Entitic mass] 29.7 pg 26. 0 - 34.0 pg [facility] MCHC (RBC) [Mass/Vol] 31.7 % 30.5 - 36.0 % [facility] MCV (RBC) [Entitic vol] 93.9 fL 77.0 - 99.0 fL [facility] Platelet mean volume (Bld) [Entitic vol] 10.1 fL 9.0 - 12.7 fL [facility] Platelets (Bld) [#/Vol] 267 10*3/uL 140 - 440 10*3/uL [facility] RBC (Bld) [#/Vol] 2.79 10*6/uL Low 3.80 - 5.2 0 10*6/uL [facility] WBC (Bld) [#/Vol] 7.2 10*3/uL 3.6 - 10.7 10*3/uL [facility] COMPREHENSIVE METABOLIC PANE Lino 01-21-2025 Albumin [Mass/Vol] 3.1 g/dL Low 3.4-4.8 [facility] Comment on above: Performed By: #### Joseph AB17, [id number], [id number] ####Lease Administration Supervisor: CHELSIE ISAACS ([phone])[facility] ([facility])[address] [place] [address] ALP [Catalytic activity/Vol] 84 U/L Normal 40-150 [facility] Comment on above: Performed By: #### Joseph AB17, AST519, [id number] ####Lease Administration Supervisor: CHELSIE ISAACS ([phone])[facility] ([facility])[address] [place] [address] ALT [Catalytic activity/Vol] 41 U/L High <30 [facility] Comment on above: Performed By: #### Joseph AB17, [id number], [id number] ####Lease Administration Supervisor: CHELSIE ISAACS ([phone])[facility] ([facility])[address] [place] [address] Anion gap [Moles/Vol] 9 mmol/L Normal 3-13 [facility] Comment on above: Performed By: #### Joseph AB17, [id number], [id number] ####Lease Administration Supervisor: CHELSIE ISAACS ([phone])[facility] ([facility])[address] [place] [address] AST [Catalytic activity/Vol] 31 U/L Normal <34 [facility] Comment on above: Performed By: #### Joseph AB17, [id number], [id number] ####Lease Administration Supervisor: CHELSIE ISAACS ([phone])[facility] ([facility])[address] [place] [address] Bilirubin [Mass/Vol] 0.7 mg/dL Normal <1.2 [facility] Comment on above: Performed By: #### Joseph AB17, UMT257, [id number] ####Lease Administration Supervisor: CHELSIE ISAACS ([phone])[facility])[address] [place] [address] Calcium [Mass/Vol] 8.5 mg/dL Low 8.8-10.0 [facility] Comment on above: Performed By: #### L AB17, IUE010, [id number] ####Lease Administration Supervisor: CHELSIE ISAACS ([phone])[facility] [place] [address] [place] Chloride [Moles/Vol] 112 mmol/L High 98-107 [facility] Comment on above: Performed By: #### Joseph AB17, CID670, [id number] ####Lease Administration Supervisor: CHELSIE ISAACS ([phone])[facility] ([facility])[address] [place] [address] [place] CO2 [Moles/Vol] 22 mmol/L Low 23-31 [facility] Comment on above: Performed By: #### Joseph ALBA, IQF739, HRH873 ####Lease Administration Supervisor: CHELSIE ISAACS ([phone])[facility])[address] [place] [address] Creatinine [Mass/Vol] 0.79 mg/dL Normal 0.57-1.11 [facility] Comment on above: Performed By: #### Joseph ALBA, [id number], EIF033 ####Lease Administration Supervisor: CHELSIE ISAACS ([phone])[facility] ([facility])[address] [place] [address] [place] GLOMERULAR FILTRATION RATE ML/MIN/1.73 SQ M.PREDICTED 76.7 mL/min/1.73m*2 Normal >60.0 [facility] Comment on above: Result Comment: Calc ulation based on the Chronic Kidney Disease Epidemiology Collaboration (CKD-EPI) equation refit without adjustment for race Performed By: #### Joseph ALBA, LLK092, [id number] ####Lease Administration Supervisor: CHELSIE ISAACS ([phone])[facility] ([facility])[address] [place] [address] [place] Glucose [Mass/Vol] 96 mg/dL Normal 82-115 [facility] Comment on above: Performed By: #### Joseph AB17, RIK882, [id number] ####Lease Administration Supervisor: CHELSIE ISAACS ([phone])[facility] ([facility])[address] [place] [address] [place] Potassium [Moles/Vol] 3.6 mmol/L Normal 3.5-5.1 [facility] Comment on above: Result Comment: [facility] potassium values may be up to 0.5 mmol/L lower than serum values. Performed By: #### L AB17, [id number], LGS922 ####Lease Administration Supervisor: CHELSIE SIAACS ([phone])[facility] ([facility])[address] [place] [address] Protein [Mass/Vol] 6.0 g/dL Low 6.4-8.3 [facility] Comment on above: Performed By: #### L AB17, [id number], [id number] ####Lease Administration Supervisor: CHELSIE ISAACS ([phone])[facility] ([facility])[address] [place] [address] Sodium [Moles/Vol] 143 mmol/L Normal 136-145 [facility] Comment on above: Performed By: #### Joseph AB17, [id number], DHK519 ####Lease Administration Supervisor: CHELSIE ISAACS ([phone])[facility] ([facility])[address] [place] [address] Urea nitrogen [Mass/Vol] 21 mg/dL Normal 9-23 [facility] Comment on above: Performed By: #### Joseph AB17, HRR875, YOZ546 ####Lease Administration Supervisor: CHELSIE ISAACS ([phone])[facility])[address] [place] [address] Comprehensive metabolic 1998 panelon 01-21-2025 Albumin [Mass/Vol] 3.1 g/dL Low 3.4 - 4.8 g/dL [facility] ALP [Catalytic activity/Vol] 84 U/L 40 - 150 U/L [facility] ALT [Catalytic activity/Vol] 41 U/L High NINF - 30 U/L [facility] Anion gap [Moles/Vol] 9 mmol/L 3 - 13 mmol/L [facility] AST [Catalytic activity/Vol] 31 U/L NINF - 34 U/L [facility] Bilirubin [Mass/Vol] 0.7 mg/dL NINF - 1.2 mg/dL [facility] Calcium [Mass/Vol] 8.5 mg/dL Low 8.8 - 10. 0 mg/dL [facility] Chloride [Moles/Vol] 112 mmol/L High 98 - 10 7 mmol/L [facility] CO2 [Moles/Vol] 22 mmol/L Low 23 - 31 mmol/L [facility] Creatinine [Mass/Vol] 0.79 mg/dL 0.57 - 1.11 mg/dL [facility] GFR/1.73 sq M.predicted (S/P/Bld) [Vol rate/Area] 76.7 mL/min - PINF [facility] Glucose [Mass/Vol] 96 mg/dL 82 - 115 mg/dL [facility] Interpretation and review of laboratory results Abnormal [facility] Potassium [Moles/Vol] 3.6 mmol/L 3.5 - 5.1 mmol/L [facility] Protein [Mass/Vol] 6 g/dL Low 6.4 - 8.3 g/dL [facility] Sodium [Moles/Vol] 143 mmol/L 136 - 145 mmol/L [facility] Urea nitrogen [Mass/Vol] 21 mg/dL 9 - 23 mg/d L [facility] ECG 12-LEADon 01-21-2025 ECG 12-LEAD IMPRESSION: Sinus rhythm Low voltage, precordial leads Borderline T abnormalities, diffuse leads Prolonged QT interval Electronically Signed On 01-21-2025 19:40:11 EDT by Pedro Lockwood Normal [facility] Laboratory - Chemistry and C hemistry - challengeon 01-21-2025 Magnesium [Mass/Vol] 1.8 mg/dL 1.6 - 2 .6 mg/dL [facility] MAGNESIUMon 01-21-2025 Magnesium [Mass/Vol] 1.8 mg/dL Normal 1.6-2.6 [facility] Comment on above: Result Comment: SHARA Hand COMMENTS:Higher values can be expected in females during menses. Performed By: #### L AB17, [id number], [id number] ####Lease Administration Supervisor: CHLESIE ISAACS ([phone])[facility] ([address] Magnesium [Mass/Vol]on 01-21 [facility] No Panel InformationOrdered By: Pedro Lockwood on 01-21-2025 P [place] 107 degrees [facility] [email or web address] Work Phone: [place] Interval 155 ms [facility] [email or web address] Work Phone: QRS [place] 29 degrees [facility] Work Phone: QRSD Interval 98 ms [facility] Work Phone: QT Interval 423 ms [employer] Work Phone: QTC Interval 513 ms [employer] Work Phone: T Wave [place] -43 degrees [employer] Work Phone: [employer] Work Phone: No Panel Informationon 01-21 CV EPIPHANY [facility] [email or web address] Interpretation and review of laboratory results Normal [facility] PHOSPHORUSon 01-21-2025 Phosphate [Mass/Vol] 3.3 mg/dL Normal 2.3-4.7 [facility] Comment on above: Performed By: #### L AB17, [id number], [id number] ####Lease Administration Supervisor: CHELSIE ISAACS ([phone])[address] Phosphate [Moles/Vol]on 01-11 Phosphate [Mass/Vol] 3.3 mg/dL 2.3 - 4 .7 mg/dL [facility] [email or web address] Progress Noteon 01-21-2025 Progress Note Normal [facility] Progress Note Normal [facility] Vital signsOrdered By: Pedro Lockwood on 01-21-2025 Heart rate 88 /min bpm [employer] Work Phone: XR CHEST 1 VIEWon 01-21-2025 XR CHEST 1 VIEW Normal [facility] XR Chest Single viewon 01-21 [facility] Radiology Study observation (narrative) [facility] XR Chest Single viewOrdered By: Allan Madsen on 01-21-2025 [facility] [email or web address] 30on 01-20-2025 30 Normal [facility] [id number] 01-20-2025 [id number] Received call from [facility] and confirmed with Chhaya that they can accept patient and that they will start insurance authorization today. Patient updated. Normal [facility] CALCIUM, IONIZEDon CALCIUM IONIZED 4.10 mg/dL Low 4.30-5.20 [facility] Comment on above: Performed By: #### L AB54 ####Lease Administration Supervisor: CHELSIE ISAACS ([phone])[facility] ([facility])[address] [place] [address] PH, IONIZED CALCIUM 7.45 Normal 7.31-7.46 [facility] Comment on above: Performed By: #### L AB54 ####Lease Administration Supervisor: CHELSIE ISAACS ([phone])[facility])[address] [place] [address] CBC (HEMOGRAM)on 01-20-2025 Erythrocyte distribution width (RBC) [Ratio] 16.4 % High 11.5-15.0 [facility] Comment on above: Performed By: #### L AB294 ####Lease Administration Supervisor: CHELSIE ISAACS ([phone])[facility])[address] [place] [address] Hematocrit (Bld) [Volume fraction] 26.9 % Low 35.0-47.0 [facility] Comment on above: Performed By: #### L AB294 ####Lease Administration Supervisor: CHELSIE ISAACS ([phone])[facility])[address] [place] [address] Hemoglobin (Bld) [Mass/Vol] 8.4 g/dL Low 11.7-16.0 [facility] Comment on above: Performed By: #### L AB294 ####Lease Administration Supervisor: CHELSIE ISAACS ([phone])[facility])[address] [place] [address] MCH (RBC) [Entitic mass] 29.4 pg Normal 26.0-34.0 [facility] Comment on above: Performed By: #### L AB294 ####Lease Administration Supervisor: CHELSIE ISAACS ([phone])[facility])[address] [place] [address] MCHC 31.2 % Normal 30.5-36.0 [facility] Comment on above: Performed By: #### L AB294 ####Lease Administration Supervisor: CHELSIE ISAACS ([phone])[facility])[address] [place] [address] MCV (RBC) [Entitic vol] 94.1 fL Normal 77.0-99.0 [facility] Comment on above: Performed By: #### L AB294 ####Lease Administration Supervisor: CHELSIE ISAACS ([phone])[facility] ([facility])[address] [place] [address] Platelet mean volume (Bld) [Entitic vol] 10.2 fL Normal 9.0-12.7 [facility] Comment on above: Performed By: #### L AB294 ####Lease Administration Supervisor: CHELSIE ISAACS ([phone])[facility])[address] [place] [address] Platelets (Bld) [#/Vol] 288 10*3/uL Normal 140-440 [facility] Comment on above: Performed By: #### L AB294 ####Lease Administration Supervisor: CHELSIE ISAACS ([phone])[facility] ([facility])[address] [place] [address] RBC (Bld) [#/Vol] 2.86 10*6/uL Low 3.80-5.20 [facility] Comment on above: Performed By: #### L AB294 ####Lease Administration Supervisor: CHELSIE ISAACS ([phone])[facility] ([facility])[address] [place] [address] WBC (Bld) [#/Vol] 7.9 10*3/uL Normal 3.6-10.7 [facility] Comment on above: Performed By: #### L AB294 ####Lease Administration Supervisor: CHELSIE ISAACS ([phone])[facility])[address] [place] [address] CBC panel Auto (Bld)on 01-20 Erythrocyte distribution width (RBC) [Ratio] 16.4 % High 11.5 - 15.0 % [facility] Hematocrit (Bld) [Volume fraction] 26.9 % Low 35.0 - 47.0 % [facility] Hemoglobin (Bld) [Mass/Vol] 8.4 g/dL Low 11.7 - 16.0 g/dL [facility] Interpretation and review of laboratory results Abnormal [facility] MCH (RBC) [Entitic mass] 29.4 pg 26. 0 - 34.0 pg [facility] MCHC (RBC) [Mass/Vol] 31.2 % 30.5 - 36.0 % [facility] MCV (RBC) [Entitic vol] 94.1 fL 77.0 - 99.0 fL [facility] Platelet mean volume (Bld) [Entitic vol] 10.2 fL 9.0 - 12.7 fL [facility] Platelets (Bld) [#/Vol] 288 10*3/uL 140 - 440 10*3/uL [facility] RBC (Bld) [#/Vol] 2.86 10*6/uL Low 3.80 - 5.2 0 10*6/uL [facility] WBC (Bld) [#/Vol] 7.9 10*3/uL 3.6 - 10.7 10*3/uL [facility] COMPREHENSIVE METABOLIC PANE Lino 01-20-2025 Albumin [Mass/Vol] 3.1 g/dL Low 3.4-4.8 [facility] Comment on above: Performed By: #### Joseph AB103, LAB17, [id number] ####Lease Administration Supervisor: CHELSIE ISAACS ([phone])[address] ALP [Catalytic activity/Vol] 86 U/L Normal 40-150 [facility] Comment on above: Performed By: #### L AB103, LAB17, TOT394 ####Lease Administration Supervisor: CHELSIE ISAACS ([phone])[address] ALT [Catalytic activity/Vol] 45 U/L High <30 [facility] Comment on above: Performed By: #### L AB103, LAB17, [id number] ####Lease Administration Supervisor: CHELSIE ISAACS ([phone])[facility] [place] [address] Anion gap [Moles/Vol] 7 mmol/L Normal 3-13 [facility] Comment on above: Performed By: #### Joseph PENALOZA, LAB17, [id number] ####Lease Administration Supervisor: CHELSIE ISAACS ([phone])[facility])[address] [place] [address] AST [Catalytic activity/Vol] 32 U/L Normal <34 [facility] Comment on above: Performed By: #### Joseph PENALOZA, LAB17, [id number] ####Lease Administration Supervisor: CHELSIE ISAACS ([phone])[facility] [place] [address] Bilirubin [Mass/Vol] 0.7 mg/dL Normal <1.2 [facility] Comment on above: Performed By: #### Joseph PENALOZA, LAB17, [id number] ####Lease Administration Supervisor: CHELSIE ISAACS ([phone])[facility] [place] [address] Calcium [Mass/Vol] 8.3 mg/dL Low 8.8-10.0 [facility] Comment on above: Performed By: #### Joseph PENALOZA, LAB17, [id number] ####Lease Administration Supervisor: CHELSIE ISAACS ([phone])[facility] [place] [address] [place] Chloride [Moles/Vol] 111 mmol/L High 98-107 [facility] Comment on above: Performed By: #### Joseph PENALOZA, LAB17, [id number] ####Lease Administration Supervisor: CHELSIE ISAACS ([phone])[facility] [place] [address] [place] CO2 [Moles/Vol] 24 mmol/L Normal 23-31 [facility] Comment on above: Performed By: #### Joseph PENALOZA, LAB17, [id number] ####Lease Administration Supervisor: CHELSIE ISAACS ([phone])[facility] ([facility])[address] [place] [address] [place] Creatinine [Mass/Vol] 0.85 mg/dL Normal 0.57-1.11 [facility] Comment on above: Performed By: #### Joseph PENALOZA, LAB17, [id number] ####Lease Administration Supervisor: CHELSIE ISAACS ([phone])[facility])[address] [place] [address] [place] GLOMERULAR FILTRATION RATE ML/MIN/1.73 SQ M.PREDICTED 70.2 mL/min/1.73m*2 Normal >60.0 [facility] Comment on above: Result Comment: Calc ulation based on the Chronic Kidney Disease Epidemiology Collaboration (CKD-EPI) equation refit without adjustment for race Performed By: #### Joseph PENALOZA, LAB17, UIA027 ####Lease Administration Supervisor: CHELSIE ISAACS ([phone])[facility])[address] [place] [address] Glucose [Mass/Vol] 102 mg/dL Normal 82-115 [facility] Comment on above: Performed By: #### Joseph PENALOZA, LAB17, [id number] ####Lease Administration Supervisor: CHELSIE ISAACS ([phone])[facility])[address] [place] [address] [place] Potassium [Moles/Vol] 3.4 mmol/L Low 3.5-5.1 [facility] Comment on above: Result Comment: [facility] potassium values may be up to 0.5 mmol/L lower than serum values. Performed By: #### Joseph PENALOZA, LAB17, [id number] ####Lease Administration Supervisor: CHELSIE ISAACS ([phone])[facility])[address] [place] [address] Protein [Mass/Vol] 5.9 g/dL Low 6.4-8.3 [facility] Comment on above: Performed By: #### Joseph PENALOZA, LAB17, [id number] ####Lease Administration Supervisor: CHELSIE ISAACS ([phone])[facility])[address] [place] [address] [place] Sodium [Moles/Vol] 142 mmol/L Normal 136-145 [facility] Comment on above: Performed By: #### L AB103, LAB17, UEM406 ####Lease Administration Supervisor: CHELSIE ISAACS ([phone])[facility] [place] [address] Urea nitrogen [Mass/Vol] 27 mg/dL High 9- [facility] Comment on above: Performed By: #### L AB103, LAB17, [id number] ####Lease Administration Supervisor: CHELSIE ISAACS ([phone])[facility] [place] [address] Calcium.ionized [Moles/Vol]o n 01-20-2025 Calcium.ionized (Bld) [Moles/Vol] 4.1 mg/dL Low 4.30 - 5.20 mg/dL [facility] Interpretation and review of laboratory results Abnormal [facility] PH, IONIZED CALCIUM 7.45 7.31 - 7.46 [facility] Comprehensive metabolic 1998 panelon 01-20-2025 Albumin [Mass/Vol] 3.1 g/dL Low 3.4 - 4.8 g/dL [facility] ALP [Catalytic activity/Vol] 86 U/L 40 - 150 U/L [facility] ALT [Catalytic activity/Vol] 45 U/L High NINF - 30 U/L [facility] Anion gap [Moles/Vol] 7 mmol/L 3 - 13 mmol/L [facility] AST [Catalytic activity/Vol] 32 U/L [facility]/L [facility] Bilirubin [Mass/Vol] 0.7 mg/dL [facility] - 1.[facility] mg/dL [facility] Calcium [Mass/Vol] 8.3 mg/dL Low 8.8 - 10. 0 mg/dL [facility] Chloride [Moles/Vol] 111 mmol/L High 98 - 10 7 mmol/L [facility] CO2 [Moles/Vol] 24 mmol/L 23 - 31 mmol/L [facility] Creatinine [Mass/Vol] 0.85 mg/dL 0.57 - 1.11 mg/dL [facility] GFR/1.73 sq M.predicted (S/P/Bld) [Vol rate/Area] 70.2 mL/min - PINF [facility] Glucose [Mass/Vol] 102 mg/dL 82 - 115 mg/dL [facility] Interpretation and review of laboratory results Abnormal [facility] Potassium [Moles/Vol] 3.4 mmol/L Low 3.5 - 5.1 mmol/L [facility] Protein [Mass/Vol] 5.9 g/dL Low 6.4 - 8.3 g/dL [facility] Sodium [Moles/Vol] 142 mmol/L 136 - 145 mmol/L [facility] Urea nitrogen [Mass/Vol] 27 mg/dL High 9 - 23 mg/d L [facility] Laboratory - Chemistry and C hemistry - challengeon 01-20-2025 Magnesium [Mass/Vol] 1.8 mg/dL 1.6 - 2 .6 mg/dL [facility] MAGNESIUMon 01-20-2025 Magnesium [Mass/Vol] 1.8 mg/dL Normal 1.6-2.6 [facility] Comment on above: Result Comment: SHARA Hand COMMENTS:Higher values can be expected in females during menses. Performed By: #### L AB103, LAB17, [id number] ####Lease Administration Supervisor: CHELSIE ISAACS ([phone])[facility])[address] [place] [address] Magnesium [Mass/Vol]on 01-20 [facility] No Panel Informationon 01-20 Interpretation and review of laboratory results Normal [facility] PHOSPHORUSon 01-20-2025 Phosphate [Mass/Vol] 3.7 mg/dL Normal 2.3-4.7 [facility] Comment on above: Performed By: #### L AB103, LAB17, [id number] ####Lease Administration Supervisor: CHELSIE ISAACS ([phone])[facility] ([facility])[address] [place] [address] Phosphate [Moles/Vol]on 01-11 Phosphate [Mass/Vol] 3.7 mg/dL 2.3 - 4 .7 mg/dL [facility] Progress Noteon 01-20-2025 Progress [facility] Progress Note Normal [facility] Progress Note Normal [facility] 30on 01-19-2025 30 Normal [facility] [id number] 01-19-2025 [id number] Normal [facility] CALCIUM, IONIZEDon CALCIUM IONIZED 4.50 mg/dL Normal 4.30-5.20 [facility] Comment on above: Performed By: #### L AB54 ####Lease Administration Supervisor: CHELSIE ISAACS ([phone])[facility])[address] [place] [address] PH, IONIZED CALCIUM 7.38 Normal 7.31-7.46 [facility] Comment on above: Performed By: #### L AB54 ####Lease Administration Supervisor: CHELSIE ISAACS ([phone])[facility])[address] [place] [address] CBC (HEMOGRAM)on 01-19-2025 Erythrocyte distribution width (RBC) [Ratio] 16.3 % High 11.5-15.0 [facility] Comment on above: Performed By: #### L AB294 ####Lease Administration Supervisor: CHELSIE ISAACS ([phone])[facility])[address] [place] [address] Hematocrit (Bld) [Volume fraction] 30.0 % Low 35.0-47.0 [facility] Comment on above: Performed By: #### L AB294 ####Lease Administration Supervisor: CHELSIE ISAACS ([phone])[facility])[address] [place] [address] Hemoglobin (Bld) [Mass/Vol] 9.4 g/dL Low 11.7-16.0 [facility] Comment on above: Performed By: #### L [id number] ####Lease Administration Supervisor: CHELSIE ISAACS ([phone])[facility])[address] [place] [address] MCH (RBC) [Entitic mass] 29.4 pg Normal 26.0-34.0 [facility] Comment on above: Performed By: #### L [id number] ####Lease Administration Supervisor: CHELSIE ISAACS ([phone])[facility])[address] [place] [address] MCHC 31.3 % Normal 30.5-36.0 [facility] Comment on above: Performed By: #### L [id number] ####Lease Administration Supervisor: CHELSIE ISAACS ([phone])[facility])[address] [place] [address] MCV (RBC) [Entitic vol] 93.8 fL Normal 77.0-99.0 [facility] Comment on above: Performed By: #### L [id number] ####Lease Administration Supervisor: CHELSIE ISAACS ([phone])[facility])[address] [place] [address] Platelet mean volume (Bld) [Entitic vol] 10.3 fL Normal 9.0-12.7 [facility] Comment on above: Performed By: #### L [id number] ####Lease Administration Supervisor: CHELSIE ISAACS ([phone])[facility])[address] [place] [address] Platelets (Bld) [#/Vol] 264 10*3/uL Normal 140-440 [facility] Comment on above: Performed By: #### L AB294 ####Lease Administration Supervisor: CHELSIE ISAACS ([phone])[facility])[address] [place] [address] RBC (Bld) [#/Vol] 3.20 10*6/uL Low 3.80-5.20 [facility] Comment on above: Performed By: #### L AB294 ####Lease Administration Supervisor: CHELSIE ISAACS ([phone])[facility])[address] [place] [address] WBC (Bld) [#/Vol] 9.6 10*3/uL Normal 3.6-10.7 [facility] Comment on above: Performed By: #### L AB294 ####Lease Administration Supervisor: CHELSIE ISAACS ([phone])[facility])[address] [place] [address] CBC panel Auto (Bld)Ordered By: Joyce Blackburn on 01-19-2025 Erythrocyte distribution width (RBC) [Ratio] 16.3 % High 11.5 - 15.0 % [facility] Hematocrit (Bld) [Volume fraction] 30 % Low 35.0 - 47.0 % [facility] Hemoglobin (Bld) [Mass/Vol] 9.4 g/dL Low 11.7 - 16.0 g/dL [facility] Interpretation and review of laboratory results Abnormal [facility] MCH (RBC) [Entitic mass] 29.4 pg 26. 0 - 34.0 pg [facility] MCHC (RBC) [Mass/Vol] 31.3 % 30.5 - 36.0 % [facility] MCV (RBC) [Entitic vol] 93.8 fL 77.0 - 99.0 fL [facility] Platelet mean volume (Bld) [Entitic vol] 10.3 fL 9.0 - 12.7 fL [facility] Platelets (Bld) [#/Vol] 264 10*3/uL 140 - 440 10*3/uL [facility] RBC (Bld) [#/Vol] 3.2 10*6/uL Low 3.80 - 5.2 0 10*6/uL [facility] WBC (Bld) [#/Vol] 9.6 10*3/uL 3.6 - 10.7 10*3/uL [facility] COMPREHENSIVE METABOLIC PANE Lino 01-19-2025 Albumin [Mass/Vol] 3.6 g/dL Normal 3.4-4.8 [facility] Comment on above: Performed By: #### L AB17, [id number], [id number] ####Lease Administration Supervisor: CHELSIE ISAACS ([phone])[address] ALP [Catalytic activity/Vol] 108 U/L Normal 40-150 [facility] Comment on above: Performed By: #### L AB17, [id number], [id number] ####Lease Administration Supervisor: CHELSIE ISAACS ([phone])[address] ALT [Catalytic activity/Vol] 68 U/L High <30 [facility] Comment on above: Performed By: #### L AB17, UFY124, [id number] ####Lease Administration Supervisor: CHELSIE ISAACS ([phone])[facility] [place] [address] Anion gap [Moles/Vol] 11 mmol/L Normal 3-13 [facility] Comment on above: Performed By: #### L AB17, [id number], [id number] ####Lease Administration Supervisor: CHELSIE ISAACS ([phone])[facility] ([facility])[address] [place] [address] AST [Catalytic activity/Vol] 54 U/L High <34 [facility] Comment on above: Performed By: #### L AB17, [id number], EDO836 ####Lease Administration Supervisor: CHELSIE ISAACS ([phone])[facility] ([facility])[address] [place] [address] Bilirubin [Mass/Vol] 0.9 mg/dL Normal <1.2 [facility] Comment on above: Performed By: #### Joseph ALBA, [id number], [id number] ####Lease Administration Supervisor: CHELSIE ISAACS ([phone])[facility] ([facility])[address] [place] [address] Calcium [Mass/Vol] 9.5 mg/dL Normal 8.8-10.0 [facility] Comment on above: Performed By: #### Joseph AB17, [id number], RUO243 ####Lease Administration Supervisor: CHELSIE ISAACS ([phone])[facility] ([facility])[address] [place] [address] [place] Chloride [Moles/Vol] 111 mmol/L High 98-107 [facility] Comment on above: Performed By: #### L AB17, [id number], [id number] ####Lease Administration Supervisor: CHELSIE ISAACS ([phone])[facility] ([facility])[address] [place] [address] [place] CO2 [Moles/Vol] 21 mmol/L Low 23-31 [facility] Comment on above: Performed By: #### L AB17, [id number], [id number] ####Lease Administration Supervisor: CHELSIE ISAACS ([phone])[facility] ([facility])[address] [place] [address] [place] Creatinine [Mass/Vol] 0.95 mg/dL Normal 0.57-1.11 [facility] Comment on above: Performed By: #### Joseph AB17, [id number], ZHV325 ####Lease Administration Supervisor: CHELSIE ISAACS ([phone])[facility])[address] [place] [address] [place] GLOMERULAR FILTRATION RATE ML/MIN/1.73 SQ M.PREDICTED 61.5 mL/min/1.73m*2 Normal >60.0 [facility] Comment on above: Result Comment: Calc ulation based on the Chronic Kidney Disease Epidemiology Collaboration (CKD-EPI) equation refit without adjustment for race Performed By: #### Joseph GONZALES17, [id number], [id number] ####Lease Administration Supervisor: CHELSIE ISAACS ([phone])[facility])[address] [place] [address] Glucose [Mass/Vol] 109 mg/dL Normal 82-115 [facility] Comment on above: Performed By: #### Joseph ALBA, [id number], [id number] ####Lease Administration Supervisor: CHELSIE ISAACS ([phone])[address] Potassium [Moles/Vol] 3.4 mmol/L Low 3.5-5.1 [facility] Comment on above: Result Comment: [facility] potassium values may be up to 0.5 mmol/L lower than serum values. Performed By: #### Joseph ALBA, [id number], [id number] ####Lease Administration Supervisor: CHELSIE ISAACS ([phone])[facility])[address] [place] [address] Protein [Mass/Vol] 7.1 g/dL Normal 6.4-8.3 [facility] Comment on above: Performed By: #### Joseph AB17, [id number], [id number] ####Lease Administration Supervisor: CHELSIE ISAACS ([phone])[facility])[address] [place] [address] [place] Sodium [Moles/Vol] 143 mmol/L Normal 136-145 [facility] Comment on above: Performed By: #### L AB17, [id number], OZQ249 ####Lease Administration Supervisor: CHELSIE ISAACS ([phone])[facility] ([facility])[address] [place] [address] Urea nitrogen [Mass/Vol] 34 mg/dL High 9-23 [facility] Comment on above: Performed By: #### L AB17, [id number], [id number] ####Lease Administration Supervisor: CHELSIE ISAACS ([phone])[facility])[address] [place] [address] Calcium.ionized [Moles/Vol]o n 01-19-2025 Calcium.ionized (Bld) [Moles/Vol] 4.5 mg/dL 4.30 - 5.20 mg/dL [facility] Interpretation and review of laboratory results Normal [facility] PH, IONIZED CALCIUM 7.38 7.31 - 7.46 [facility] Comprehensive metabolic 1998 panelon 01-19-2025 Albumin [Mass/Vol] 3.6 g/dL 3.4 - 4.8 g/dL [facility] ALP [Catalytic activity/Vol] 108 U/L 40 - 150 U/L [facility] ALT [Catalytic activity/Vol] 68 U/L [facility]/L [facility] Anion gap [Moles/Vol] 11 mmol/L 3 - 13 mmol/L [facility] AST [Catalytic activity/Vol] 54 U/L High [facility] - 34 U/L [facility] Bilirubin [Mass/Vol] 0.9 mg/dL [facility] - 1.[facility] mg/dL [facility] Calcium [Mass/Vol] 9.5 mg/dL 8.8 - 10. 0 mg/dL [facility] Chloride [Moles/Vol] 111 mmol/L High 98 - 10 7 mmol/L [facility] CO2 [Moles/Vol] 21 mmol/L Low 23 - 31 mmol/L [facility] Creatinine [Mass/Vol] 0.95 mg/dL 0.57 - 1.11 mg/dL [facility] GFR/1.73 sq M.predicted (S/P/Bld) [Vol rate/Area] 61.5 mL/min - PINF [facility] Glucose [Mass/Vol] 109 mg/dL 82 - 115 mg/dL [facility] Interpretation and review of laboratory results Abnormal [facility] Potassium [Moles/Vol] 3.4 mmol/L Low 3.5 - 5.1 mmol/L [facility] Protein [Mass/Vol] 7.1 g/dL 6.4 - 8.3 g/dL [facility] Sodium [Moles/Vol] 143 mmol/L 136 - 145 mmol/L [facility] Urea nitrogen [Mass/Vol] 34 mg/dL High 9 - 23 mg/d L [facility] Laboratory - Chemistry and C hemistry - challengeon 01-19-2025 Magnesium [Mass/Vol] 2 mg/dL 1.6 - 2 .6 mg/dL [facility] MAGNESIUMon 01-19-2025 Magnesium [Mass/Vol] 2.0 mg/dL Normal 1.6-2.6 [facility] Comment on above: Result Comment: SHARA Hand COMMENTS:Higher values can be expected in females during menses. Performed By: #### L AB17, [id number], [id number] ####Lease Administration Supervisor: CHELSIE ISAACS ([phone])[facility])[address] [place] [address] Magnesium [Mass/Vol]on 01-19 [facility] No Panel Informationon 01-19 Interpretation and review of laboratory results Normal [facility] PHOSPHORUSon 01-19-2025 Phosphate [Mass/Vol] 3.8 mg/dL Normal 2.3-4.7 [facility] Comment on above: Performed By: #### L AB17, [id number], [id number] ####Lease Administration Supervisor: CHELSIE ISAACS ([phone])[facility])[address] [place] [address] Phosphate [Moles/Vol]on Phosphate [Mass/Vol] 3.8 mg/dL 2.3 - 4 .7 mg/dL [facility] Progress Noteon 01-19-2025 Progress Note Normal [facility] Progress Note Normal [facility] Progress Note Normal [facility] XR CHEST 1 VIEWon 01-19-2025 XR CHEST 1 VIEW Normal [facility] XR Chest Single viewon 01-19 [facility] Radiology Study observation (narrative) Leda piña 30on 01-18-2025 30 Normal [facility] CALCIUM, IONIZEDon CALCIUM IONIZED 4.00 mg/dL Low 4.30-5.20 [facility] Comment on above: Performed By: #### L AB54 ####Lease Administration Supervisor: CHELSIE ISAACS ([phone])[facility])[address] [place] [address] PH, IONIZED CALCIUM 7.52 High 7.31-7.46 [facility] Comment on above: Performed By: #### L AB54 ####Lease Administration Supervisor: CHELSIE ISAACS ([phone])[facility])[address] [place] [address] CBC (HEMOGRAM)on 01-18-2025 Erythrocyte distribution width (RBC) [Ratio] 15.9 % High 11.5-15.0 [facility] Comment on above: Performed By: #### L AB294 ####Lease Administration Supervisor: CHELSIE ISAACS ([phone])[facility] ([facility])[address] [place] [address] Hematocrit (Bld) [Volume fraction] 27.9 % Low 35.0-47.0 [facility] Comment on above: Performed By: #### L AB294 ####Lease Administration Supervisor: CHELSIE ISAACS ([phone])[facility])[address] [place] [address] Hemoglobin (Bld) [Mass/Vol] 9.2 g/dL Low 11.7-16.0 [facility] Comment on above: Performed By: #### L AB294 ####Lease Administration Supervisor: CHELSIE ISAACS ([phone])[facility])[address] [place] [address] MCH (RBC) [Entitic mass] 30.2 pg Normal 26.0-34.0 [facility] Comment on above: Performed By: #### L AB294 ####Lease Administration Supervisor: CHELSIE [phone])[facility] [place] [address] MCHC 33.0 % Normal 30.5-36.0 [facility] Comment on above: Performed By: #### L AB294 ####Lease Administration Supervisor: CHELSIE ISAACS ([phone])[facility] ([facility])[address] [place] [address] MCV (RBC) [Entitic vol] 91.5 fL Normal 77.0-99.0 S [facility] Comment on above: Performed By: #### L AB294 ####Lease Administration Supervisor: CHELSIE ISAACS ([phone])[facility] ([facility])[address] [place] [address] Platelet mean volume (Bld) [Entitic vol] 10.7 fL Normal 9.0-12.7 [facility] Comment on above: Performed By: #### L AB294 ####Lease Administration Supervisor: CHELSIE ISAACS ([phone])[facility] ([facility])[address] [place] [address] Platelets (Bld) [#/Vol] 192 10*3/uL Normal 140-440 [facility] Comment on above: Performed By: #### L AB294 ####Lease Administration Supervisor: CHELSIE ISAACS ([phone])[facility])[address] [place] [address] RBC (Bld) [#/Vol] 3.05 10*6/uL Low 3.80-5.20 [facility] Comment on above: Performed By: #### L AB294 ####Lease Administration Supervisor: CHELSIE ISAACS ([phone])[facility])[address] [place] [address] WBC (Bld) [#/Vol] 7.7 10*3/uL Normal 3.6-10.7 [facility] Comment on above: Performed By: #### L AB294 ####Lease Administration Supervisor: CHELSIE ISAACS ([phone])[facility] ([facility])[address] [place] [address] CBC panel Auto (Bld)on 01-18 Erythrocyte distribution width (RBC) [Ratio] 15.9 % High 11.5 - 15.0 % [facility] Hematocrit (Bld) [Volume fraction] 27.9 % Low 35.0 - 47.0 % [facility] Hemoglobin (Bld) [Mass/Vol] 9.2 g/dL Low 11.7 - 16.0 g/dL [facility] Interpretation and review of laboratory results Abnormal [facility] MCH (RBC) [Entitic mass] 30.2 pg 26. 0 - 34.0 pg [facility] MCHC (RBC) [Mass/Vol] 33 % 30.5 - 36.0 % [facility] MCV (RBC) [Entitic vol] 91.5 fL 77.0 - 99.0 fL [facility] Platelet mean volume (Bld) [Entitic vol] 10.7 fL 9.0 - 12.7 fL [facility] Platelets (Bld) [#/Vol] 192 10*3/uL 140 - 440 10*3/uL [facility] RBC (Bld) [#/Vol] 3.05 10*6/uL Low 3.80 - 5.2 0 10*6/uL [facility] WBC (Bld) [#/Vol] 7.7 10*3/uL 3.6 - 10.7 10*3/uL [facility] COMPREHENSIVE METABOLIC PANE Lino 01-18-2025 Albumin [Mass/Vol] 3.5 g/dL Normal 3.4-4.8 [facility] Comment on above: Performed By: #### L AB17, [id number], [id number] ####Lease Administration Supervisor: CHELSIE ISAACS ([phone])[facility])[address] [place] [address] ALP [Catalytic activity/Vol] 105 U/L Normal 40-150 [facility] Comment on above: Performed By: #### L AB17, [id number], [id number] ####Lease Administration Supervisor: CHELSIE ISAACS ([phone])[facility])[address] [place] [address] ALT [Catalytic activity/Vol] 71 U/L High <30 [facility] Comment on above: Performed By: #### L AB17, TEW105, [id number] ####Lease Administration Supervisor: CHELSIE ISAACS ([phone])[facility] ([facility])[address] [place] [address] Anion gap [Moles/Vol] 14 mmol/L High 3-13 [facility] Comment on above: Performed By: #### L AB17, YHL360, MWQ459 ####Lease Administration Supervisor: CHELSIE ISAACS ([phone])[facility] ([facility])[address] [place] [address] AST [Catalytic activity/Vol] 55 U/L High <34 [facility] Comment on above: Performed By: #### L AB17, [id number], [id number] ####Lease Administration Supervisor: CHELSIE ISAACS ([phone])[facility] ([facility])[address] [place] [address] Bilirubin [Mass/Vol] 0.8 mg/dL Normal <1.2 [facility] Comment on above: Performed By: #### L AB17, [id number], [id number] ####Lease Administration Supervisor: CHELSIE ISAACS ([phone])[facility] ([facility])[address] [place] [address] Calcium [Mass/Vol] 9.2 mg/dL Normal 8.8-10.0 [facility] Comment on above: Performed By: #### L AB17, [id number], MEB712 ####Lease Administration Supervisor: CHELSIE ISAACS ([phone])[facility] ([facility])[address] [place] [address] [place] Chloride [Moles/Vol] 106 mmol/L Normal 98-107 [facility] Comment on above: Performed By: #### L AB17, [id number], JTH996 ####Lease Administration Supervisor: CHELSIE ISAACS ([phone])[facility])[address] [place] [address] CO2 [Moles/Vol] 21 mmol/L Low 23-31 [facility] Comment on above: Performed By: #### L AB17, KTN559, [id number] ####Lease Administration Supervisor: CHELSIE ISAACS ([phone])[facility] [place] [address] Creatinine [Mass/Vol] 0.92 mg/dL Normal 0.57-1.11 [facility] Comment on above: Performed By: #### L AB17, UTH320, GHE645 ####Lease Administration Supervisor: CHELSIE ISAACS ([phone])[facility])[address] [place] [address] [place] GLOMERULAR FILTRATION RATE ML/MIN/1.73 SQ M.PREDICTED 63.9 mL/min/1.73m*2 Normal >60.0 [facility] Comment on above: Result Comment: Calc ulation based on the Chronic Kidney Disease Epidemiology Collaboration (CKD-EPI) equation refit without adjustment for race Performed By: #### L AB17, [id number], [id number] ####Lease Administration Supervisor: CHELSIE ISAACS ([phone])[facility])[address] [place] [address] Glucose [Mass/Vol] 103 mg/dL Normal 82-115 [facility] Comment on above: Performed By: #### L AB17, [id number], [id number] ####Lease Administration Supervisor: CHELSIE ISAACS ([phone])[facility])[address] [place] [address] Potassium [Moles/Vol] 3.4 mmol/L Low 3.5-5.1 [facility] Comment on above: Result Comment: [facility] potassium values may be up to 0.5 mmol/L lower than serum values. Performed By: #### L AB17, [id number], [id number] ####Lease Administration Supervisor: CHELSIE ISAACS ([phone])[facility] ([facility])[address] [place] [address] Protein [Mass/Vol] 6.9 g/dL Normal 6.4-8.3 [facility] Comment on above: Performed By: #### L AB17, [id number], [id number] ####Lease Administration Supervisor: CHELSIE ISAACS ([phone])[facility])[address] [place] [address] [place] Sodium [Moles/Vol] 141 mmol/L Normal 136-145 [facility] Comment on above: Performed By: #### L AB17, [id number], [id number] ####Lease Administration Supervisor: CHELSIE ISAACS ([phone])[facility] [place] [address] Urea nitrogen [Mass/Vol] 39 mg/dL High 9-23 [facility] Comment on above: Performed By: #### L AB17, [id number], [id number] ####Lease Administration Supervisor: CHELSIE ISAACS ([phone])[facility] [place] [address] Calcium.ionized [Moles/Vol]o n 01-18-2025 Calcium.ionized (Bld) [Moles/Vol] 4 mg/dL Low 4.30 - 5.20 mg/dL [facility] Interpretation and review of laboratory results Abnormal [facility] PH, IONIZED CALCIUM 7.52 High 7.31 - 7.46 [facility] Comprehensive metabolic 1998 panelon 01-18-2025 Albumin [Mass/Vol] 3.5 g/dL 3.4 - 4.8 g/dL [facility] ALP [Catalytic activity/Vol] 105 U/L 40 - 150 U/L [facility] ALT [Catalytic activity/Vol] 71 U/L High [facility] - 30 U/L [facility] Anion gap [Moles/Vol] 14 mmol/L High 3 - 13 mmol/L [facility] AST [Catalytic activity/Vol] 55 U/L High [facility] - 34 U/L [facility] Bilirubin [Mass/Vol] 0.8 mg/dL [facility] mg/dL [facility] Calcium [Mass/Vol] 9.2 mg/dL 8.8 - 10. 0 mg/dL [facility] Chloride [Moles/Vol] 106 mmol/L 98 - 10 7 mmol/L [facility] CO2 [Moles/Vol] 21 mmol/L Low 23 - 31 mmol/L [facility] Creatinine [Mass/Vol] 0.92 mg/dL 0.57 - 1.11 mg/dL [facility] GFR/1.73 sq M.predicted (S/P/Bld) [Vol rate/Area] 63.9 mL/min - PINF [facility] Glucose [Mass/Vol] 103 mg/dL 82 - 115 mg/dL [facility] Interpretation and review of laboratory results Abnormal [facility] Potassium [Moles/Vol] 3.4 mmol/L Low 3.5 - 5.1 mmol/L [facility] Protein [Mass/Vol] 6.9 g/dL 6.4 - 8.3 g/dL [facility] Sodium [Moles/Vol] 141 mmol/L 136 - 145 mmol/L [facility] Urea nitrogen [Mass/Vol] 39 mg/dL High 9 - 23 mg/d L [facility] Laboratory - Chemistry and C hemistry - challengeon 01-18-2025 Potassium [Moles/Vol] 3.4 mmol/L Low 3.5 - 5.1 mmol/L [facility] Magnesium [Mass/Vol] 2.2 mg/dL 1.6 - 2 .6 mg/dL [facility] MAGNESIUMon 01-18-2025 Magnesium [Mass/Vol] 2.2 mg/dL Normal 1.6-2.6 [facility] Comment on above: Result Comment: SHARA Hand COMMENTS:Higher values can be expected in females during menses. Performed By: #### L AB17, [id number], [id number] ####Lease Administration Supervisor: CHELSIE ISAACS ([phone])[address] Magnesium [Mass/Vol]on 01-18 [facility] No Panel Informationon 01-18 Interpretation and review of laboratory results Normal [facility] Nursing Noteon 01-18-2025 Nursing Note Normal [facility] PHOSPHORUSon 01-18-2025 Phosphate [Mass/Vol] 3.8 mg/dL Normal 2.3-4.7 [facility] Comment on above: Performed By: #### L AB17, [id number], [id number] ####Lease Administration Supervisor: CHELSIE ISAACS ([phone])[facility])[address] [place] [address] POTASSIUMon 01-18-2025 Potassium [Moles/Vol] 3.4 mmol/L Low 3.5-5.1 [facility] Comment on above: Result Comment: [facility] potassium values may be up to 0.5 mmol/L lower than serum values. Performed By: #### L AB114 ####Lease Administration Supervisor: CHELSIE ISAACS ([phone])[facility] ([facility])[address] [place] [address] Phosphate [Moles/Vol]on Phosphate [Mass/Vol] 3.8 mg/dL 2.3 - 4 .7 mg/dL [facility] Potassium [Moles/Vol]on Interpretation and review of laboratory results Abnormal [facility] Progress Noteon 01-18-2025 Progress Note Normal [facility] XR CHEST 1 VIEWon 01-18-2025 XR CHEST 1 VIEW Normal [facility] XR Chest Single viewon 01-18 [facility] Radiology Study observation (narrative) [facility] XR Chest Single viewOrdered By: Guru Palma on 01-18-2025 [facility] Work Phone: 30on 01-17-2025 30 Normal [facility] CALCIUM, IONIZEDon CALCIUM IONIZED 4.60 mg/dL Normal 4.30-5.20 [facility] Comment on above: Performed By: #### L [id number] ####Lease Administration Supervisor: CHELSIE ISAACS ([phone])[facility] ([facility])[address] [place] [address] PH, IONIZED CALCIUM 7.37 Normal 7.31-7.46 [facility] Comment on above: Performed By: #### L [id number] ####Lease Administration Supervisor: CHELSIE ISAACS ([phone])[facility] ([facility])[address] [place] [address] CBC (HEMOGRAM)on 01-17-2025 Erythrocyte distribution width (RBC) [Ratio] 15.7 % High 11.5-15.0 [facility] Comment on above: Performed By: #### L [id number] ####Lease Administration Supervisor: CHELSIE ISAACS ([phone])[facility] ([facility])[address] [place] [address] Hematocrit (Bld) [Volume fraction] 24.9 % Low 35.0-47.0 [facility] Comment on above: Performed By: #### L AB294 ####Lease Administration Supervisor: CHELSIE ISAACS ([phone])[facility])[address] [place] [address] Hemoglobin (Bld) [Mass/Vol] 7.8 g/dL Low 11.7-16.0 [facility] Comment on above: Performed By: #### L AB294 ####Lease Administration Supervisor: CHELSIE ISAACS ([phone])[facility] ([facility])[address] [place] [address] MCH (RBC) [Entitic mass] 29.0 pg Normal 26.0-34.0 [facility] Comment on above: Performed By: #### L AB294 ####Lease Administration Supervisor: CHELSIE ISAACS ([phone])[facility])[address] [place] [address] MCHC 31.3 % Normal 30.5-36.0 [facility] Comment on above: Performed By: #### L AB294 ####Lease Administration Supervisor: CHELSIE ISAACS ([phone])[facility] ([facility])[address] [place] [address] MCV (RBC) [Entitic vol] 92.6 fL Normal 77.0-99.0 [facility] Comment on above: Performed By: #### L AB294 ####Lease Administration Supervisor: CHELSIE ISAACS ([phone])[facility])[address] [place] [address] Platelet mean volume (Bld) [Entitic vol] 10.4 fL Normal 9.0-12.7 [facility] Comment on above: Performed By: #### L AB294 ####Lease Administration Supervisor: CHELSIE ISAACS ([phone])[facility])[address] [place] [address] Platelets (Bld) [#/Vol] 165 10*3/uL Normal 140-440 [facility] Comment on above: Performed By: #### L AB294 ####Lease Administration Supervisor: CHELSIE ISAACS ([phone])[facility])[address] [place] [address] RBC (Bld) [#/Vol] 2.69 10*6/uL Low 3.80-5.20 [facility] Comment on above: Performed By: #### L AB294 ####Lease Administration Supervisor: CHELSIE ISAACS ([phone])[facility])[address] [place] [address] WBC (Bld) [#/Vol] 6.6 10*3/uL Normal 3.6-10.7 [facility] Comment on above: Performed By: #### L AB294 ####Lease Administration Supervisor: CHELSIE ISAACS ([phone])[address] CBC panel Auto (Bld)Ordered By: Keaton Pandey on 01-17-2025 Erythrocyte distribution width (RBC) [Ratio] 15.7 % High 11.5 - 15.0 % [facility] Hematocrit (Bld) [Volume fraction] 24.9 % Low 35.0 - 47.0 % [facility] Hemoglobin (Bld) [Mass/Vol] 7.8 g/dL Low 11.7 - 16.0 g/dL [facility] Interpretation and review of laboratory results Abnormal [facility] MCH (RBC) [Entitic mass] 29 pg 26. 0 - 34.0 pg [facility] MCHC (RBC) [Mass/Vol] 31.3 % 30.5 - 36.0 % [facility] MCV (RBC) [Entitic vol] 92.6 fL 77.0 - 99.0 fL [facility] Platelet mean volume (Bld) [Entitic vol] 10.4 fL 9.0 - 12.7 fL [facility] Platelets (Bld) [#/Vol] 165 10*3/uL 140 - 440 10*3/uL [facility] RBC (Bld) [#/Vol] 2.69 10*6/uL Low 3.80 - 5.2 0 10*6/uL [facility] WBC (Bld) [#/Vol] 6.6 10*3/uL 3.6 - 10.7 10*3/uL [facility] COMPREHENSIVE METABOLIC PANE Lino 01-17-2025 Albumin [Mass/Vol] 3.2 g/dL Low 3.4-4.8 [facility] Comment on above: Performed By: #### L AB113, LAB17, [id number] ####Lease Administration Supervisor: CHELSIE ISAACS ([phone])[facility] ([facility])[address] [place] [address] ALP [Catalytic activity/Vol] 101 U/L Normal 40-150 [facility] Comment on above: Performed By: #### Joseph ABChelsea, LAB17, [id number] ####Lease Administration Supervisor: CHELSIE ISAACS ([phone])[facility] ([facility])[address] [place] [address] ALT [Catalytic activity/Vol] 75 U/L High <30 [facility] Comment on above: Performed By: #### Joseph ABChelsea, LAB17, [id number] ####Lease Administration Supervisor: CHELSIE ISAACS ([phone])[facility] ([facility])[address] [place] [address] Anion gap [Moles/Vol] 11 mmol/L Normal 3-13 [facility] Comment on above: Performed By: #### Joseph AB113, LAB17, [id number] ####Lease Administration Supervisor: CHELSIE ISAACS ([phone])[facility] ([facility])[address] [place] [address] AST [Catalytic activity/Vol] 59 U/L High <34 [facility] Comment on above: Performed By: #### L AB113, LAB17, [id number] ####Lease Administration Supervisor: CHELSIE ISAACS ([phone])[facility] ([facility])[address] [place] [address] Bilirubin [Mass/Vol] 0.6 mg/dL Normal <1.2 [facility] Comment on above: Performed By: #### L AB113, LAB17, [id number] ####Lease Administration Supervisor: CHELSIE ISAACS ([phone])[facility] ([facility])[address] [place] [address] [place] Calcium [Mass/Vol] 8.7 mg/dL Low 8.8-10.0 [facility] Comment on above: Performed By: #### Joseph ABChelsea, LAB17, [id number] ####Lease Administration Supervisor: CHELSIE ISAACS ([phone])[facility])[address] [place] [address] Chloride [Moles/Vol] 106 mmol/L Normal 98-107 [facility] Comment on above: Performed By: #### Joseph ABChelsea, LAB17, [id number] ####Lease Administration Supervisor: CHELSIE ISAACS ([phone])[facility] ([facility])[address] [place] [address] CO2 [Moles/Vol] 24 mmol/L Normal 23-31 [facility] Comment on above: Performed By: #### Joseph HERNANDEZ, LAB17, [id number] ####Lease Administration Supervisor: CHELSIE ISAACS ([phone])[facility] ([facility])[address] [place] [address] Creatinine [Mass/Vol] 1.03 mg/dL Normal 0.57-1.11 [facility] Comment on above: Performed By: #### Joseph HERNANDEZ, LAB17, [id number] ####Lease Administration Supervisor: CHELSIE ISAACS ([phone])[facility] ([facility])[address] [place] [address] [place] GLOMERULAR FILTRATION RATE ML/MIN/1.73 SQ M.PREDICTED 55.8 mL/min/1.73m*2 Low >60.0 [facility] Comment on above: Result Comment: Calc ulation based on the Chronic Kidney Disease Epidemiology Collaboration (CKD-EPI) equation refit without adjustment for race Performed By: #### Joseph ABChelsea, LAB17, [id number] ####Lease Administration Supervisor: CHELSIE ISAACS ([phone])[facility] ([facility])[address] [place] [address] [place] Glucose [Mass/Vol] 103 mg/dL Normal 82-115 [facility] Comment on above: Performed By: #### L ABChelsea, LAB17, [id number] ####Lease Administration Supervisor: CHELSIE ISAACS ([phone])[facility])[address] [place] [address] Potassium [Moles/Vol] 3.8 mmol/L Normal 3.5-5.1 [facility] Comment on above: Result Comment: [facility] potassium values may be up to 0.5 mmol/L lower than serum values. Performed By: #### L AB113, LAB17, [id number] ####Lease Administration Supervisor: CHELSIE ISAACS ([phone])[facility] ([facility])[address] [place] [address] Protein [Mass/Vol] 5.9 g/dL Low 6.4-8.3 [facility] Comment on above: Performed By: #### L AB113, LAB17, [id number] ####Lease Administration Supervisor: CHELSIE ISAACS ([phone])[facility])[address] [place] [address] Sodium [Moles/Vol] 141 mmol/L Normal 136-145 [facility] Comment on above: Performed By: #### L AB113, LAB17, [id number] ####Lease Administration Supervisor: CHELSIE ISAACS ([phone])[facility])[address] [place] [address] Urea nitrogen [Mass/Vol] 55 mg/dL High 9-23 [facility] Comment on above: Performed By: #### L AB113, LAB17, [id number] ####Lease Administration Supervisor: CHELSIE ISAACS ([phone])[address] Calcium.ionized [Moles/Vol]o n 01-17-2025 Calcium.ionized (Bld) [Moles/Vol] 4.6 mg/dL 4.30 - 5.20 mg/dL [facility] Interpretation and review of laboratory results Normal [facility] PH, IONIZED CALCIUM 7.37 7.31 - 7.46 [facility] Comprehensive metabolic 1998 panelon 01-17-2025 Albumin [Mass/Vol] 3.2 g/dL Low 3.4 - 4.8 g/dL [facility] ALP [Catalytic activity/Vol] 101 U/L 40 - 150 U/L [facility] ALT [Catalytic activity/Vol] 75 U/[facility]L [facility] Anion gap [Moles/Vol] 11 mmol/L 3 - 13 mmol/L [facility] AST [Catalytic activity/Vol] 59 U/L High [facility] U/L [facility] Bilirubin [Mass/Vol] 0.6 mg/dL NINF - 1.2 mg/dL [facility] Calcium [Mass/Vol] 8.7 mg/dL Low 8.8 - 10. 0 mg/dL [facility] Chloride [Moles/Vol] 106 mmol/L 98 - 10 7 mmol/L [facility] CO2 [Moles/Vol] 24 mmol/L 23 - 31 mmol/L [facility] Creatinine [Mass/Vol] 1.03 mg/dL 0.57 - 1.11 mg/dL [facility] GFR/1.73 sq M.predicted (S/P/Bld) [Vol rate/Area] 55.8 mL/min Low - PINF [facility] Glucose [Mass/Vol] 103 mg/dL 82 - 115 mg/dL [facility] Interpretation and review of laboratory results Abnormal [facility] Potassium [Moles/Vol] 3.8 mmol/L 3.5 - 5.1 mmol/L [facility] Protein [Mass/Vol] 5.9 g/dL Low 6.4 - 8.3 g/dL [facility] Sodium [Moles/Vol] 141 mmol/L 136 - 145 mmol/L [facility] Urea nitrogen [Mass/Vol] 55 mg/dL High 9 - 23 mg/d L [facility] Laboratory - Chemistry and C hemistry - challengeon 01-17-2025 Magnesium [Mass/Vol] 2.3 mg/dL 1.6 - 2 .6 mg/dL [facility] MAGNESIUMon 01-17-2025 Magnesium [Mass/Vol] 2.3 mg/dL Normal 1.6-2.6 [facility] Comment on above: Result Comment: SHARA Hand COMMENTS:Higher values can be expected in females during menses. Performed By: #### L AB113, LAB17, [id number] ####Lease Administration Supervisor: CHELSIE ISAACS ([phone])[facility] ([place] [id number] [place] Magnesium [Mass/Vol]on 01-17 [facility] No Panel Informationon 01-17 Interpretation and review of laboratory results Normal [facility] PHOSPHORUSon 01-17-2025 Phosphate [Mass/Vol] 3.6 mg/dL Normal 2.3-4.7 [facility] Comment on above: Performed By: #### L AB113, LAB17, [id number] ####Lease Administration Supervisor: CHELSIE ISAACS ([phone])[facility] ([facility])[address] [place] [address] [place] Phosphate [Moles/Vol]on Phosphate [Mass/Vol] 3.6 mg/dL 2.3 - 4 .7 mg/dL [facility] Progress Noteon 01-17-2025 Progress Note Normal [facility] XR CHEST 1 VIEWon 01-17-2025 XR CHEST 1 VIEW Normal [facility] XR Chest Single viewon 01-17 [facility] Radiology Study observation (narrative) [facility] 30on 01-16-2025 30 Normal [facility] [id number] 01-16-2025 [id number] Normal [facility] CALCIUM, IONIZEDon CALCIUM IONIZED 4.60 mg/dL Normal 4.30-5.20 [facility] Comment on above: Performed By: #### L AB54 ####Lease Administration Supervisor: CHELSIE ISAACS ([phone])[facility] ([facility])[address] [place] [address] PH, IONIZED CALCIUM 7.39 Normal 7.31-7.46 [facility] Comment on above: Performed By: #### L AB54 ####Lease Administration Supervisor: CHELSIE ISAACS ([phone])[facility] ([facility])[address] [place] [address] CBC (HEMOGRAM)on 01-16-2025 Erythrocyte distribution width (RBC) [Ratio] 15.8 % High 11.5-15.0 [facility] Comment on above: Performed By: #### L AB294 ####Lease Administration Supervisor: CHELSIE ISAACS ([phone])[facility] ([facility])[address] [place] [address] Hematocrit (Bld) [Volume fraction] 22.4 % Low 35.0-47.0 [facility] Comment on above: Performed By: #### L AB294 ####Lease Administration Supervisor: CHELSIE ISAACS ([phone])[facility] ([facility])[address] [place] [address] Hemoglobin (Bld) [Mass/Vol] 7.3 g/dL Low 11.7-16.0 [facility] Comment on above: Performed By: #### L AB294 ####Lease Administration Supervisor: CHELSIE ISAACS ([phone])[facility])[address] [place] [address] MCH (RBC) [Entitic mass] 29.6 pg Normal 26.0-34.0 [facility] Comment on above: Performed By: #### L AB294 ####Lease Administration Supervisor: CHELSIE ISAACS ([phone])[facility] ([facility])[address] [place] [address] MCHC 32.6 % Normal 30.5-36.0 [facility] Comment on above: Performed By: #### L AB294 ####Lease Administration Supervisor: CHELSIE ISAACS ([phone])[facility])[address] [place] [address] MCV (RBC) [Entitic vol] 90.7 fL Normal 77.0-99.0 [facility] Comment on above: Performed By: #### L AB294 ####Lease Administration Supervisor: CHELSIE ISAACS ([phone])[facility])[address] [place] [address] Platelet mean volume (Bld) [Entitic vol] 11.0 fL Normal 9.0-12.7 [facility] Comment on above: Performed By: #### L AB294 ####Lease Administration Supervisor: CHELSIE ISAACS ([phone])[facility])[address] [place] [address] Platelets (Bld) [#/Vol] 116 10*3/uL Low 140-440 [facility] Comment on above: Performed By: #### L AB294 ####Lease Administration Supervisor: CHELSIE ISAACS ([phone])[facility])[address] [place] [address] RBC (Bld) [#/Vol] 2.47 10*6/uL Low 3.80-5.20 [facility] Comment on above: Performed By: #### L AB294 ####Lease Administration Supervisor: CHELSIE ISAACS ([phone])[address] WBC (Bld) [#/Vol] 7.3 10*3/uL Normal 3.6-10.7 [facility] Comment on above: Performed By: #### L AB294 ####Lease Administration Supervisor: CHELSIE ISAACS ([phone])[facility])[address] [place] [address] CBC panel Auto (Bld)on 01-16 Erythrocyte distribution width (RBC) [Ratio] 15.8 % High 11.5 - 15.0 % [facility] Hematocrit (Bld) [Volume fraction] 22.4 % Low 35.0 - 47.0 % [facility] Hemoglobin (Bld) [Mass/Vol] 7.3 g/dL Low 11.7 - 16.0 g/dL [facility] Interpretation and review of laboratory results Abnormal [facility] MCH (RBC) [Entitic mass] 29.6 pg 26. 0 - 34.0 pg [facility] MCHC (RBC) [Mass/Vol] 32.6 % 30.5 - 36.0 % [facility] MCV (RBC) [Entitic vol] 90.7 fL 77.0 - 99.0 fL [facility] Platelet mean volume (Bld) [Entitic vol] 11 fL 9.0 - 12.7 fL [facility] Platelets (Bld) [#/Vol] 116 10*3/uL Low 140 - 440 10*3/uL [facility] RBC (Bld) [#/Vol] 2.47 10*6/uL Low 3.80 - 5.2 0 10*6/uL [facility] WBC (Bld) [#/Vol] 7.3 10*3/uL 3.6 - 10.7 10*3/uL [facility] COMPREHENSIVE METABOLIC PANE Lino 01-16-2025 Albumin [Mass/Vol] 3.3 g/dL Low 3.4-4.8 [facility] Comment on above: Performed By: #### L AB103, [id number], LAB17 ####Lease Administration Supervisor: CHELSIE ISAACS ([phone])[facility] ([facility])[address] [place] [address] ALP [Catalytic activity/Vol] 91 U/L Normal 40-150 [facility] Comment on above: Performed By: #### L AB103, [id number], LAB17 ####Lease Administration Supervisor: CHELSIE ISAACS ([phone])[facility] ([facility])[address] [place] [address] ALT [Catalytic activity/Vol] 92 U/L High <30 [facility] Comment on above: Performed By: #### L AB103, [id number], LAB17 ####Lease Administration Supervisor: CHELSIE ISAACS ([phone])[facility] ([facility])[address] [place] [address] Anion gap [Moles/Vol] 9 mmol/L Normal 3-13 [facility] Comment on above: Performed By: #### L AB103, [id number], LAB17 ####Lease Administration Supervisor: CHELSIE ISAACS ([phone])[facility])[address] [place] [address] AST [Catalytic activity/Vol] 84 U/L High <34 [facility] Comment on above: Performed By: #### L AB103, [id number], LAB17 ####Lease Administration Supervisor: CHELSIE ISAACS ([phone])[facility])[address] [place] [address] Bilirubin [Mass/Vol] 0.6 mg/dL Normal <1.2 [facility] Comment on above: Performed By: #### L AB103, [id number], LAB17 ####Lease Administration Supervisor: CHELSIE ISAACS ([phone])[facility] [place] [address] Calcium [Mass/Vol] 8.7 mg/dL Low 8.8-10.0 [facility] Comment on above: Performed By: #### L AB103, [id number], LAB17 ####Lease Administration Supervisor: CHELSIE ISAACS ([phone])[facility] [place] [address] Chloride [Moles/Vol] 107 mmol/L Normal 98-107 [facility] Comment on above: Performed By: #### L AB103, [id number], LAB17 ####Lease Administration Supervisor: CHELSIE ISAACS ([phone])[facility] [place] [address] CO2 [Moles/Vol] 20 mmol/L Low 23-31 [facility] Comment on above: Performed By: #### Joseph AB103, [id number], LAB17 ####Lease Administration Supervisor: CHELSIE ISAACS ([phone])[facility] [place] [address] Creatinine [Mass/Vol] 1.13 mg/dL High 0.57-1.11 [facility] Comment on above: Performed By: #### L AB103, [id number], LAB17 ####Lease Administration Supervisor: CHELSIE ISAACS ([phone])[facility] [place] [address] [place] GLOMERULAR FILTRATION RATE ML/MIN/1.73 SQ M.PREDICTED 49.9 mL/min/1.73m*2 Low >60.0 [facility] Comment on above: Result Comment: Calc ulation based on the Chronic Kidney Disease Epidemiology Collaboration (CKD-EPI) equation refit without adjustment for race Performed By: #### L AB103, [id number], LAB17 ####Lease Administration Supervisor: CHELSIE ISAACS ([phone])[facility] [place] [address] [place] Glucose [Mass/Vol] 104 mg/dL Normal 82-115 [facility] Comment on above: Performed By: #### L AB103, [id number], LAB17 ####Lease Administration Supervisor: CHELSIE ISAACS ([phone])[facility])[address] [place] [address] Potassium [Moles/Vol] 3.9 mmol/L Normal 3.5-5.1 [facility] Comment on above: Result Comment: [facility] potassium values may be up to 0.5 mmol/L lower than serum values. Performed By: #### L AB103, [id number], LAB17 ####Lease Administration Supervisor: CHELSIE ISAACS ([phone])[facility] ([facility])[address] [place] [address] Protein [Mass/Vol] 5.8 g/dL Low 6.4-8.3 [facility] Comment on above: Performed By: #### Joseph AB103, [id number], LAB17 ####Lease Administration Supervisor: CHELSIE ISAACS ([phone])[facility] ([facility])[address] [place] [address] Sodium [Moles/Vol] 136 mmol/L Normal 136-145 [facility] Comment on above: Performed By: #### L AB103, [id number], LAB17 ####Lease Administration Supervisor: CHELSIE ISAACS ([phone])[facility])[address] [place] [address] Urea nitrogen [Mass/Vol] 49 mg/dL High 9-23 [facility] Comment on above: Performed By: #### L AB103, [id number], LAB17 ####Lease Administration Supervisor: CHELSIE ISAACS ([phone])[facility])[address] [place] [address] Calcium.ionized [Moles/Vol]o n 01-16-2025 Calcium.ionized (Bld) [Moles/Vol] 4.6 mg/dL 4.30 - 5.20 mg/dL [facility] Interpretation and review of laboratory results Normal [facility] PH, IONIZED CALCIUM 7.39 7.31 - 7.46 [facility] Comprehensive metabolic 1998 panelon 01-16-2025 Albumin [Mass/Vol] 3.3 g/dL Low 3.4 - 4.8 g/dL [facility] ALP [Catalytic activity/Vol] 91 U/L 40 - 150 U/L [facility] ALT [Catalytic activity/Vol] 92 U/L High NINF - 30 U/L [facility] Anion gap [Moles/Vol] 9 mmol/L 3 - 13 mmol/L [facility] AST [Catalytic activity/Vol] 84 U/L High NINF - 34 U/L [facility] Bilirubin [Mass/Vol] 0.6 mg/dL NINF - 1.2 mg/dL [facility] Calcium [Mass/Vol] 8.7 mg/dL Low 8.8 - 10. 0 mg/dL [facility] Chloride [Moles/Vol] 107 mmol/L 98 - 10 7 mmol/L [facility] CO2 [Moles/Vol] 20 mmol/L Low 23 - 31 mmol/L [facility] Creatinine [Mass/Vol] 1.13 mg/dL High 0.57 - 1.11 mg/dL [facility] GFR/1.73 sq M.predicted (S/P/Bld) [Vol rate/Area] 49.9 mL/min Low - PINF [facility] Glucose [Mass/Vol] 104 mg/dL 82 - 115 mg/dL [facility] Interpretation and review of laboratory results Abnormal [facility] Potassium [Moles/Vol] 3.9 mmol/L 3.5 - 5.1 mmol/L [facility] Protein [Mass/Vol] 5.8 g/dL Low 6.4 - 8.3 g/dL [facility] Sodium [Moles/Vol] 136 mmol/L 136 - 145 mmol/L [facility] Urea nitrogen [Mass/Vol] 49 mg/dL High 9 - 23 mg/d L [facility] Laboratory - Chemistry and C hemistry - challengeon 01-16-2025 Magnesium [Mass/Vol] 2.4 mg/dL 1.6 - 2 .6 mg/dL [facility] MAGNESIUMon 01-16-2025 Magnesium [Mass/Vol] 2.4 mg/dL Normal 1.6-2.6 [facility] Comment on above: Result Comment: ORDDerik R COMMENTS:Higher values can be expected in females during menses. Performed By: #### L [id number], [id number], [id number] ####Lease Administration Supervisor: CHELSIE ISAACS ([phone])[facility] [place] [address] [place] Magnesium [Mass/Vol]on 01-16 [facility] No Panel Informationon 01-16 Interpretation and review of laboratory results Normal [facility] PHOSPHORUSon 01-16-2025 Phosphate [Mass/Vol] 2.9 mg/dL Normal 2.3-4.7 [facility] Comment on above: Performed By: #### L [id number], [id number], [id number] ####Lease Administration Supervisor: CHELSIE ISAACS ([phone])[facility] ([facility])[address] [place] [address] [place] Phosphate [Moles/Vol]on Phosphate [Mass/Vol] 2.9 mg/dL 2.3 - 4 .7 mg/dL [facility] Progress Noteon 01-16-2025 Progress Note Normal [facility] Progress Note Normal [facility] Progress Note Normal [facility] Progress Note Normal [facility] XR CHEST 1 VIEWon 01-16-2025 XR CHEST 1 VIEW Normal [facility] XR Chest Single viewon 01-16 [facility] Radiology Study observation (narrative) [facility] XR Chest Single viewOrdered By: Jhonatan Brewer on 01-16-2025 [facility] Work Phone: 30on 01-15-2025 30 Normal [facility] [id number] 01-15-2025 [id number] Normal [facility] CALCIUM, IONIZEDon CALCIUM IONIZED 4.40 mg/dL Normal 4.30-5.20 [facility] Comment on above: Performed By: #### L AB54 ####Lease Administration Supervisor: CHELSIE ISAACS ([phone])[facility] ([facility])[address] [place] [address] [place] PH, IONIZED CALCIUM 7.47 High 7.31-7.46 [facility] Comment on above: Performed By: #### L AB54 ####Lease Administration Supervisor: CHELSIE ISAACS ([phone])[facility])[address] [place] [address] CBC (HEMOGRAM)on 01-15-2025 Erythrocyte distribution width (RBC) [Ratio] 15.8 % High 11.5-15.0 [facility] Comment on above: Performed By: #### L AB294 ####Lease Administration Supervisor: CHELSIE ISAACS ([phone])[facility])[address] [place] [address] Hematocrit (Bld) [Volume fraction] 25.1 % Low 35.0-47.0 [facility] Comment on above: Performed By: #### L AB294 ####Lease Administration Supervisor: CHELSIE ISAACS ([phone])[address] Hemoglobin (Bld) [Mass/Vol] 8.2 g/dL Low 11.7-16.0 [facility] Comment on above: Performed By: #### L AB294 ####Lease Administration Supervisor: CHELSIE ISAACS ([phone])[address] MCH (RBC) [Entitic mass] 29.8 pg Normal 26.0-34.0 [facility] Comment on above: Performed By: #### L AB294 ####Lease Administration Supervisor: CHELSIE ISAACS ([phone])[address] MCHC 32.7 % Normal 30.5-36.0 [facility] Comment on above: Performed By: #### L AB294 ####Lease Administration Supervisor: CHELSIE ISAACS ([phone])[address] MCV (RBC) [Entitic vol] 91.3 fL Normal 77.0-99.0 S [facility] Comment on above: Performed By: #### L AB294 ####Lease Administration Supervisor: CHELSIE ISAACS ([phone])[facility] ([facility])[address] [place] [address] Platelet mean volume (Bld) [Entitic vol] 10.9 fL Normal 9.0-12.7 [facility] Comment on above: Performed By: #### L AB294 ####Lease Administration Supervisor: CHELSIE ISAACS ([phone])[facility] ([facility])[address] [place] [address] Platelets (Bld) [#/Vol] 102 10*3/uL Low 140-440 [facility] Comment on above: Performed By: #### L AB294 ####Lease Administration Supervisor: CHELSIE ISAACS ([phone])[facility])[address] [place] [address] RBC (Bld) [#/Vol] 2.75 10*6/uL Low 3.80-5.20 [facility] Comment on above: Performed By: #### L AB294 ####Lease Administration Supervisor: CHELSIE ISAACS ([phone])[facility] ([facility])[address] [place] [address] WBC (Bld) [#/Vol] 9.0 10*3/uL Normal 3.6-10.7 [facility] Comment on above: Performed By: #### L AB294 ####Lease Administration Supervisor: CHELSIE ISAACS ([phone])[facility])[address] [place] [address] CBC panel Auto (Bld)on 01-15 Erythrocyte distribution width (RBC) [Ratio] 15.8 % High 11.5 - 15.0 % [facility] Hematocrit (Bld) [Volume fraction] 25.1 % Low 35.0 - 47.0 % [facility] Hemoglobin (Bld) [Mass/Vol] 8.2 g/dL Low 11.7 - 16.0 g/dL [facility] Interpretation and review of laboratory results Abnormal [facility] MCH (RBC) [Entitic mass] 29.8 pg 26. 0 - 34.0 pg [facility] MCHC (RBC) [Mass/Vol] 32.7 % 30.5 - 36.0 % [facility] MCV (RBC) [Entitic vol] 91.3 fL 77.0 - 99.0 fL [facility] Platelet mean volume (Bld) [Entitic vol] 10.9 fL 9.0 - 12.7 fL [facility] Platelets (Bld) [#/Vol] 102 10*3/uL Low 140 - 440 10*3/uL [facility] RBC (Bld) [#/Vol] 2.75 10*6/uL Low 3.80 - 5.2 0 10*6/uL [facility] WBC (Bld) [#/Vol] 9 10*3/uL 3.6 - 10.7 10*3/uL [facility] COMPREHENSIVE METABOLIC PANE Lino 01-15-2025 Albumin [Mass/Vol] 3.6 g/dL Normal 3.4-4.8 [facility] Comment on above: Performed By: #### Joseph AB17, [id number], [id number] ####Lease Administration Supervisor: CHELSIE ISAACS ([phone])[facility])[address] [place] [address] ALP [Catalytic activity/Vol] 78 U/L Normal 40-150 [facility] Comment on above: Performed By: #### Joseph AB17, [id number], [id number] ####Lease Administration Supervisor: CHELSIE ISAACS ([phone])[facility] ([facility])[address] [place] [address] ALT [Catalytic activity/Vol] 102 U/L High <30 [facility] Comment on above: Performed By: #### Joseph AB17, [id number], [id number] ####Lease Administration Supervisor: CHELSIE ISAACS ([phone])[facility] ([facility])[address] [place] [address] Anion gap [Moles/Vol] 9 mmol/L Normal 3-13 [facility] Comment on above: Performed By: #### L AB17, [id number], [id number] ####Lease Administration Supervisor: CHELSIE ISAACS ([phone])[facility])[address] [place] [address] AST [Catalytic activity/Vol] 130 U/L High <34 [facility] Comment on above: Performed By: #### L AB17, [id number], [id number] ####Lease Administration Supervisor: CHELSIE ISAACS ([phone])[facility])[address] [place] [address] Bilirubin [Mass/Vol] 0.7 mg/dL Normal <1.2 [facility] Comment on above: Performed By: #### L AB17, [id number], [id number] ####Lease Administration Supervisor: CHELSIE ISAACS ([phone])[facility] ([facility])[address] [place] [address] Calcium [Mass/Vol] 8.7 mg/dL Low 8.8-10.0 [facility] Comment on above: Performed By: #### Joseph AB17, [id number], [id number] ####Lease Administration Supervisor: CHELSIE ISAACS ([phone])[facility] ([facility])[address] [place] [address] Chloride [Moles/Vol] 109 mmol/L High 98-107 [facility] Comment on above: Performed By: #### L AB17, [id number], [id number] ####Lease Administration Supervisor: CHELSIE ISAACS ([phone])[facility] ([facility])[address] [place] [address] [place] CO2 [Moles/Vol] 19 mmol/L Low 23-31 [facility] Comment on above: Performed By: #### L AB17, [id number], [id number] ####Lease Administration Supervisor: CHELSIE ISAACS ([phone])[facility] ([facility])[address] [place] [address] Creatinine [Mass/Vol] 1.10 mg/dL Normal 0.57-1.11 [facility] Comment on above: Performed By: #### L AB17, [id number], [id number] ####Lease Administration Supervisor: CHELSIE ISAACS ([phone])[facility])[address] [place] [address] [place] GLOMERULAR FILTRATION RATE ML/MIN/1.73 SQ M.PREDICTED 51.5 mL/min/1.73m*2 Low >60.0 [facility] Comment on above: Result Comment: Calc ulation based on the Chronic Kidney Disease Epidemiology Collaboration (CKD-EPI) equation refit without adjustment for race Performed By: #### L AB17, [id number], [id number] ####Lease Administration Supervisor: CHELSIE ISAACS ([phone])[facility])[address] [place] [address] Glucose [Mass/Vol] 114 mg/dL Normal 82-115 [facility] Comment on above: Performed By: #### L AB17, [id number], [id number] ####Lease Administration Supervisor: CHELSIE ISAACS ([phone])[facility])[address] [place] [address] Potassium [Moles/Vol] 4.2 mmol/L Normal 3.5-5.1 [facility] Comment on above: Result Comment: [facility] potassium values may be up to 0.5 mmol/L lower than serum values. Performed By: #### Joseph AB17, [id number], [id number] ####Lease Administration Supervisor: CHELSIE ISAACS ([phone])[facility] ([facility])[address] [place] [address] Protein [Mass/Vol] 5.8 g/dL Low 6.4-8.3 [facility] Comment on above: Performed By: #### L AB17, [id number], [id number] ####Lease Administration Supervisor: CHELSIE ISAACS ([phone])[facility])[address] [place] [address] [place] Sodium [Moles/Vol] 137 mmol/L Normal 136-145 [facility] Comment on above: Performed By: #### L AB17, [id number], [id number] ####Lease Administration Supervisor: CHELSIE ISAACS ([phone])[facility])[address] [place] [address] [place] Urea nitrogen [Mass/Vol] 35 mg/dL High 9-23 [facility] Comment on above: Performed By: #### L AB17, [id number], [id number] ####Lease Administration Supervisor: CHELSIE ISAACS ([phone])[facility])[address] [place] [address] Calcium.ionized [Moles/Vol]O rdered By: Darby Garcia on 01-15-2025 Calcium.ionized (Bld) [Moles/Vol] 4.4 mg/dL 4.30 - 5.20 mg/dL [facility] Interpretation and review of laboratory results Abnormal [facility] PH, IONIZED CALCIUM 7.47 High 7.31 - 7.46 [facility] Comprehensive metabolic 1998 panelon 01-15-2025 Albumin [Mass/Vol] 3.6 g/dL 3.4 - 4.8 g/dL [facility] ALP [Catalytic activity/Vol] 78 U/L 40 - 150 U/L [facility] ALT [Catalytic activity/Vol] 102 U/L High NINF - 30 U/L [facility] Anion gap [Moles/Vol] 9 mmol/L 3 - 13 mmol/L [facility] AST [Catalytic activity/Vol] 130 U/L High NINF - 34 U/L [facility] Bilirubin [Mass/Vol] 0.7 mg/dL NINF - 1.2 mg/dL [facility] Calcium [Mass/Vol] 8.7 mg/dL Low 8.8 - 10. 0 mg/dL [facility] Chloride [Moles/Vol] 109 mmol/L High 98 - 10 7 mmol/L [facility] CO2 [Moles/Vol] 19 mmol/L Low 23 - 31 mmol/L [facility] Creatinine [Mass/Vol] 1.1 mg/dL 0.57 - 1.11 mg/dL [facility] GFR/1.73 sq M.predicted (S/P/Bld) [Vol rate/Area] 51.5 mL/min Low - PINF [facility] Glucose [Mass/Vol] 114 mg/dL 82 - 115 mg/dL [facility] Interpretation and review of laboratory results Abnormal [facility] Potassium [Moles/Vol] 4.2 mmol/L 3.5 - 5.1 mmol/L [facility] Protein [Mass/Vol] 5.8 g/dL Low 6.4 - 8.3 g/dL [facility] Sodium [Moles/Vol] 137 mmol/L 136 - 145 mmol/L [facility] Urea nitrogen [Mass/Vol] 35 mg/dL High 9 - 23 mg/d L [facility] ECG 12-LEADon 01-15-2025 ECG 12-LEAD IMPRESSION: Sinus rhythm PACs Nonspecific T abnormalities, diffuse leads Electronically Signed On 01-15-2025 17:06:06 EDT by Tom [facility] ECG 12-LEAD IMPRESSION: Sinus rhythm Atrial premature complex Borderline T abnormalities, diffuse leads Electronically Signed On 01-15-2025 17:03:40 [facility] IMPRESSION: Sinus rhythm Nonspecific T abnormalities, inferior leads Electronically Signed On 01-15-2025 17:00:38 EDT by [facility] Laboratory - Chemistry and C hemistry - challengeon 01-15-2025 Magnesium [Mass/Vol] 2.1 mg/dL 1.6 - 2 .6 mg/dL [facility] MAGNESIUMon 01-15-2025 Magnesium [Mass/Vol] 2.1 mg/dL Normal 1.6-2.6 [facility] Comment on above: Result Comment: SHARA Hand COMMENTS:Higher values can be expected in females during menses. Performed By: #### L AB17, [id number], [id number] ####Lease Administration Supervisor: HCELSIE ISAACS ([phone])[facility] ([address] Magnesium [Mass/Vol]on 01-15 [facility] No Panel Informationon 01-15 P [place] 69 degrees [facility] [place] Interval 129 ms [facility] QRS [place] 11 degrees [facility] QRSD Interval 97 ms [facility] QT Interval 381 ms [facility] QTC Interval 472 ms [facility] T Wave [place] -39 degrees [facility] CV EPIPHANY [facility] P [place] 70 degrees [facility] [place] Interval 129 ms [facility] QRS [place] 16 degrees [facility] QRSD Interval 95 ms [facility] QT Interval 383 ms [facility] QTC Interval 476 ms [facility] T Wave [place] -31 degrees [facility] CV EPIPHANY [facility] P [place] 81 degrees [facility] [place] Interval 143 ms [facility] QRS [place] 30 degrees [facility] QRSD Interval 93 ms [facility] QT Interval 370 ms [facility] QTC Interval 464 ms [facility] T Wave [place] -29 degrees [facility] CV EPIPHANY [facility] [place] [facility] [place] [facility] Interpretation and review of laboratory results Normal [facility] Blood Expiration Date [id number] [facility] [place] Blood Expiration Date [id number] S [facility] [place] Crossmatch interpretation COMP [facility] Dispense Status Transfused [facility] Disp[facility] Status Released from Crossmatch [facility] Product Blood Type 6200 [facility] PRODUCT CODE [id number] [facility] Unit ABO A [facility] Unit Number [id number] [facility] Number [id number] [facility] Number [id number] [facility] Number [id number] [facility] RH Positive [facility] Unit Volume 300 mL [facility] Nursing Noteon 01-15-2025 Nursing Note Normal [facility] PHOSPHORUSon 01-15-2025 Phosphate [Mass/Vol] 2.7 mg/dL Normal 2.3-4.7 [facility] Comment on above: Performed By: #### L AB17, [id number], [id number] ####Lease Administration Supervisor: CHELSIE ISAACS ([phone])[facility] ([address] Phosphate [Moles/Vol]on Phosphate [Mass/Vol] 2.7 mg/dL 2.3 - 4 .7 mg/dL [facility] Progress Noteon 01-15-2025 Progress [facility] Progress Note Normal [facility] Vital signson 01-15-2025 Heart rate 94 /min bpm [facility] Heart rate 93 /min bpm [facility] Heart rate 94 /min bpm [facility] XR CHEST 1 VIEWon 01-15-2025 XR CHEST 1 VIEW Normal [facility] XR CHEST 1 V[facility] XR Chest Single viewon 01-15 [facility] Radiology Study observation (narrative) Leda Muñoz alth [facility] Radiology Study observation (narrative) Leda Muñoz alth XR Chest Single viewOrdered By: José Miguel Sheffield on 01-15-2025 [facility] Work Phone: 30on 01-14-2025 30 Normal [facility] [id number] 01-14-2025 [id number] Normal [facility] APTTon 01-14-2025 aPTT Coag (Bld) [Time] 40.7 s High 20.0-30.5 [facility] Comment on above: Result Comment: SHARA Hand COMMENTS:NOTE: The therapeutic time for Heparin anticoagulation, based on Xa activity inhibition, is an APTT of 46-80 seconds. Performed By: #### L AB325 ####Lease Administration Supervisor: CHELSIE ISAACS ([phone])[facility])[address] [place] [address] aPTT Coag (Bld) [Time] 43.3 s High 20.0-30.5 [facility] Comment on above: Result Comment: SHARA Hand COMMENTS:NOTE: The therapeutic time for Heparin anticoagulation, based on Xa activity inhibition, is an APTT of 46-80 seconds. Performed By: #### L AB325 ####Lease Administration Supervisor: CHELSIE ISAACS ([phone])[facility] ([facility])[address] [place] [address] BASIC METABOLIC PANELon 06 Anion gap [Moles/Vol] 8 mmol/L Normal 3-13 [facility] Comment on above: Performed By: #### L AB15 ####Lease Administration Supervisor: CHELSIE ISAACS ([phone])[facility] ([facility])[address] [place] [address] Calcium [Mass/Vol] 8.7 mg/dL Low 8.8-10.0 [facility] Comment on above: Performed By: #### L AB15 ####Lease Administration Supervisor: CHELSIE [phone])[facility] ([facility])[address] [place] [address] Chloride [Moles/Vol] 108 mmol/L High 98-107 [facility] Comment on above: Performed By: #### L AB15 ####Lease Administration Supervisor: CHELSIE [phone])[facility] [place] [address] [place] CO2 [Moles/Vol] 21 mmol/L Low 23-31 [facility] Comment on above: Performed By: #### L AB15 ####Lease Administration Supervisor: CHELSIE ISAACS ([phone])[facility] ([facility])[address] [place] [address] Creatinine [Mass/Vol] 1.07 mg/dL Normal 0.57-1.11 [facility] Comment on above: Performed By: #### L AB15 ####Lease Administration Supervisor: CHELSIE ISAACS ([phone])[facility])[address] [place] [address] GLOMERULAR FILTRATION RATE ML/MIN/1.73 SQ M.PREDICTED 53.3 mL/min/1.73m*2 Low >60.0 [facility] Comment on above: Result Comment: Calc ulation based on the Chronic Kidney Disease Epidemiology Collaboration (CKD-EPI) equation refit without adjustment for race Performed By: #### L AB15 ####Lease Administration Supervisor: CHELSIE ISAACS ([phone])[facility] ([facility])[address] [place] [address] Glucose [Mass/Vol] 123 mg/dL High 82-115 [facility] Comment on above: Performed By: #### L AB15 ####Lease Administration Supervisor: CHELSIE ISAACS ([phone])[facility])[address] [place] [address] Potassium [Moles/Vol] 4.1 mmol/L Normal 3.5-5.1 [facility] Comment on above: Result Comment: [facility] potassium values may be up to 0.5 mmol/L lower than serum values. Performed By: #### L AB15 ####Lease Administration Supervisor: CHELSIE ISAACS ([phone])[facility])[address] [place] [address] Sodium [Moles/Vol] 137 mmol/L Normal 136-145 [facility] Comment on above: Performed By: #### L AB15 ####Lease Administration Supervisor: CHELSIE ISAACS ([phone])[facility] [place] [address] [place] Urea nitrogen [Mass/Vol] 24 mg/dL High 9-23 [facility] Comment on above: Performed By: #### L AB15 ####Lease Administration Supervisor: CHELSIE ISAACS ([phone])[facility])[address] Anion gap [Moles/Vol] 10 mmol/L Normal 3-13 [facility] Comment on above: Performed By: #### L AB15, [id number] ####Lease Administration Supervisor: CHELSIE ISAACS ([phone])[facility] ([facility])[address] [place] [address] Calcium [Mass/Vol] 8.5 mg/dL Low 8.8-10.0 [facility] Comment on above: Performed By: #### L AB15, [id number] ####Lease Administration Supervisor: CHELSIE ISAACS ([phone])[facility] [place] [address] [place] Chloride [Moles/Vol] 108 mmol/L High 98-107 [facility] Comment on above: Performed By: #### L AB15, [id number] ####Lease Administration Supervisor: CHELSIE ISAACS ([phone])[facility] [place] [address] [place] CO2 [Moles/Vol] 20 mmol/L Low 23-31 [facility] Comment on above: Performed By: #### L AB15, [id number] ####Lease Administration Supervisor: CHELSIE ISAACS ([phone])[facility] [place] [address] [place] Creatinine [Mass/Vol] 1.19 mg/dL High 0.57-1.11 [facility] Comment on above: Performed By: #### L AB15, [id number] ####Lease Administration Supervisor: CHELSIE ISAACS ([phone])[facility] ([facility])[address] [place] [address] [place] GLOMERULAR FILTRATION RATE ML/MIN/1.73 SQ M.PREDICTED 46.9 mL/min/1.73m*2 Low >60.0 [facility] Comment on above: Result Comment: Calc ulation based on the Chronic Kidney Disease Epidemiology Collaboration (CKD-EPI) equation refit without adjustment for race Performed By: #### L AB15, [id number] ####Lease Administration Supervisor: CHELSIE ISAACS ([phone])[facility])[address] [place] [address] Glucose [Mass/Vol] 137 mg/dL High 82-115 [facility] Comment on above: Performed By: #### L AB15, [id number] ####Lease Administration Supervisor: CHELSIE ISAACS ([phone])[address] Potassium [Moles/Vol] 3.3 mmol/L Low 3.5-5.1 [facility] Comment on above: Result Comment: [facility] potassium values may be up to 0.5 mmol/L lower than serum values. Performed By: #### L AB15, [id number] ####Lease Administration Supervisor: CHELSIE ISAACS ([phone])[facility] ([facility])[address] [place] [address] Sodium [Moles/Vol] 138 mmol/L Normal 136-145 [facility] Comment on above: Performed By: #### L AB15, [id number] ####Lease Administration Supervisor: CHELSIE ISAACS ([phone])[facility])[address] [place] [address] Urea nitrogen [Mass/Vol] 21 mg/dL Normal 9-23 [facility] Comment on above: Performed By: #### L AB15, [id number] ####Lease Administration Supervisor: CHELSIE ISAACS ([phone])[facility])[address] [place] [address] Basic metabolic 1998 panelon 01-14-2025 Anion gap [Moles/Vol] 8 mmol/L 3 - 13 mmol/L [facility] Calcium [Mass/Vol] 8.7 mg/dL Low 8.8 - 10. 0 mg/dL [facility] Chloride [Moles/Vol] 108 mmol/L High 98 - 10 7 mmol/L [facility] CO2 [Moles/Vol] 21 mmol/L Low 23 - 31 mmol/L [facility] Creatinine [Mass/Vol] 1.07 mg/dL 0.57 - 1.11 mg/dL [facility] GFR/1.73 sq M.predicted (S/P/Bld) [Vol rate/Area] 53.3 mL/min Low - PINF [facility] Glucose [Mass/Vol] 123 mg/dL High 82 - 115 mg/dL [facility] Interpretation and review of laboratory results Abnormal [facility] Potassium [Moles/Vol] 4.1 mmol/L 3.5 - 5.1 mmol/L [facility] Sodium [Moles/Vol] 137 mmol/L 136 - 145 mmol/L [facility] Urea nitrogen [Mass/Vol] 24 mg/dL High 9 - 23 mg/d L [facility] Anion gap [Moles/Vol] 10 mmol/L 3 - 13 mmol/L [facility] Calcium [Mass/Vol] 8.5 mg/dL Low 8.8 - 10. 0 mg/dL [facility] Chloride [Moles/Vol] 108 mmol/L High 98 - 10 7 mmol/L [facility] CO2 [Moles/Vol] 20 mmol/L Low 23 - 31 mmol/L [facility] Creatinine [Mass/Vol] 1.19 mg/dL High 0.57 - 1.11 mg/dL [facility] GFR/1.73 sq M.predicted (S/P/Bld) [Vol rate/Area] 46.9 mL/min Low - PINF [facility] Glucose [Mass/Vol] 137 mg/dL High 82 - 115 mg/dL [facility] Interpretation and review of laboratory results Abnormal [facility] Potassium [Moles/Vol] 3.3 mmol/L Low 3.5 - 5.1 mmol/L [facility] Sodium [Moles/Vol] 138 mmol/L 136 - 145 mmol/L [facility] Urea nitrogen [Mass/Vol] 21 mg/dL 9 - 23 mg/d L [facility] CALCIUM, IONIZEDon 5 CALCIUM IONIZED 4.40 mg/dL Normal 4.30-5.20 [facility] Comment on above: Performed By: #### L AB54 ####Lease Administration Supervisor: CHELSIE ISAACS ([phone])[facility])[address] [place] [address] PH, IONIZED CALCIUM 7.45 Normal 7.31-7.46 [facility] Comment on above: Performed By: #### L AB54 ####Lease Administration Supervisor: CHELSIE ISAACS ([phone])[facility])[address] [place] [address] CBC (HEMOGRAM)on 01-14-2025 Erythrocyte distribution width (RBC) [Ratio] 16.0 % High 11.5-15.0 [facility] Comment on above: Performed By: #### L [id number] ####Lease Administration Supervisor: CHELSIE ISAACS ([phone])[facility])[address] [place] [address] Hematocrit (Bld) [Volume fraction] 24.3 % Low 35.0-47.0 [facility] Comment on above: Performed By: #### L [id number] ####Lease Administration Supervisor: CHELSIE ISAACS ([phone])[address] Hemoglobin (Bld) [Mass/Vol] 7.9 g/dL Low 11.7-16.0 [facility] Comment on above: Performed By: #### L [id number] ####Lease Administration Supervisor: CHELSIE ISAACS ([phone])[facility])[address] [place] [address] IPF 4 Normal [facility] Comment on above: Performed By: #### L [id number] ####Lease Administration Supervisor: CHELSIE ISAACS ([phone])[facility])[address] [place] [address] MCH (RBC) [Entitic mass] 29.2 pg Normal 26.0-34.0 [facility] Comment on above: Performed By: #### L [id number] ####Lease Administration Supervisor: CHELSIE ISAACS ([phone])[facility])[address] [place] [address] MCHC 32.5 % Normal 30.5-36.0 [facility] Comment on above: Performed By: #### L [id number] ####Lease Administration Supervisor: CHELSIE ISAACS ([phone])[facility] ([facility])[address] [place] [address] MCV (RBC) [Entitic vol] 89.7 fL Normal 77.0-99.0 [facility] Comment on above: Performed By: #### L [id number] ####Lease Administration Supervisor: CHELSIE ISAACS ([phone])[facility] ([facility])[address] [place] [address] Platelet mean volume (Bld) [Entitic vol] 11.1 fL Normal 9.0-12.7 [facility] Comment on above: Performed By: #### L [id number] ####Lease Administration Supervisor: CHELSIE ISAACS ([phone])[facility] ([facility])[address] [place] [address] Platelets (Bld) [#/Vol] 86 10*3/uL Low 140-440 [facility] Comment on above: Performed By: #### L [id number] ####Lease Administration Supervisor: CHELSIE ISAACS ([phone])[facility])[address] [place] [address] RBC (Bld) [#/Vol] 2.71 10*6/uL Low 3.80-5.20 [facility] Comment on above: Performed By: #### L [id number] ####Lease Administration Supervisor: CHELSIE ISAACS ([phone])[facility] ([facility])[address] [place] [address] WBC (Bld) [#/Vol] 8.4 10*3/uL Normal 3.6-10.7 [facility] Comment on above: Performed By: #### L [id number] ####Lease Administration Supervisor: CHELSIE ISAACS ([phone])[facility])[address] [place] [address] CBC panel Auto (Bld)on 01-14 Erythrocyte distribution width (RBC) [Ratio] 16 % High 11.5 - 15.0 % [facility] Hematocrit (Bld) [Volume fraction] 24.3 % Low 35.0 - 47.0 % [facility] Hemoglobin (Bld) [Mass/Vol] 7.9 g/dL Low 11.7 - 16.0 g/dL [facility] Interpretation and review of laboratory results Abnormal [facility] IPF 4 [facility] MCH (RBC) [Entitic mass] 29.2 pg 26. 0 - 34.0 pg [facility] MCHC (RBC) [Mass/Vol] 32.5 % 30.5 - 36.0 % [facility] MCV (RBC) [Entitic vol] 89.7 fL 77.0 - 99.0 fL [facility] Platelet mean volume (Bld) [Entitic vol] 11.1 fL 9.0 - 12.7 fL [facility] Platelets (Bld) [#/Vol] 86 10*3/uL Low 140 - 440 10*3/uL [facility] RBC (Bld) [#/Vol] 2.71 10*6/uL Low 3.80 - 5.2 0 10*6/uL [facility] WBC (Bld) [#/Vol] 8.4 10*3/uL 3.6 - 10.7 10*3/uL [facility] Calcium.ionized [Moles/Vol]o n 01-14-2025 Calcium.ionized (Bld) [Moles/Vol] 4.4 mg/dL 4.30 - 5.20 mg/dL [facility] Interpretation and review of laboratory results Normal [facility] PH, IONIZED CALCIUM 7.45 7.31 - 7.46 [facility] ECG 12-LEADon 01-14-2025 ECG 12-LEAD IMPRESSION: Sinus rhythm Low voltage, precordial leads Borderline T abnormalities, diffuse leads Electronically Signed On 01-14-2025 08:11:46 EDT by Paxton Valentin Normal [facility] Laboratory - Chemistry and C hemistry - challengeon 01-14-2025 Potassium [Moles/Vol] 3.6 mmol/L 3.5 - 5.1 mmol/L [facility] Glucose [Mass/Vol] 156 mg/dL High 70 - 100 mg/dL [facility] Magnesium [Mass/Vol] 2 mg/dL 1.6 - 2 .6 mg/dL [facility] [email or web address] MAGNESIUMon 01-14-2025 Magnesium [Mass/Vol] 2.0 mg/dL Normal 1.6-2.6 [facility] Comment on above: Result Comment: SHARA Hand COMMENTS:Higher values can be expected in females during menses. Performed By: #### L AB15, [id number] ####Lease Administration Supervisor: CHELSIE ISAACS ([phone])[facility])[address] [place] [address] Magnesium [Mass/Vol]on 01-14 Interpretation and review of laboratory results Normal [facility] [place] No Panel Informationon 01-14 [facility] Radiology Study observation (narrative) [facility] Interpretation and review of laboratory results Abnormal [facility] [place] No Panel InformationOrdered By: Ana Maria Lamb on 01-14-2025 [facility] Work Phone: No Panel InformationOrdered By: Paxton Valentin on 01-14-2025 P [place] 19 degrees [facility] Work Phone: [place] Interval 190 ms [facility] Work Phone: QRS [place] 16 degrees [facility] Work Phone: QRSD Interval 94 ms [facility] Work Phone: QT Interval 400 ms [facility] Work Phone: QTC Interval 471 ms [facility] Work Phone: T Wave [place] -32 degrees [facility] Work Phone: [facility] Work Phone: PHOSPHORUSon 01-14-2025 Phosphate [Mass/Vol] 3.1 mg/dL Normal 2.3-4.7 [facility] Comment on above: Performed By: #### L AB114, [id number] ####Lease Administration Supervisor: CHELSIE ISAACS ([phone])[facility] [place] [address] [place] POTASSIUMon 01-14-2025 Potassium [Moles/Vol] 3.6 mmol/L Normal 3.5-5.1 [facility] Comment on above: Order Comment: PRN p ost potassium replacement Result Comment: [facility] potassium values may be up to 0.5 mmol/L lower than serum values. Performed By: #### L AB114, [id number] ####Lease Administration Supervisor: CHELSIE ISAACS ([phone])[facility] ([id number] Phosphate [Moles/Vol]on Interpretation and review of laboratory results Normal [facility] Phosphate [Mass/Vol] 3.1 mg/dL 2.3 - 4 .7 mg/dL [facility] Potassium [Moles/Vol]on Interpretation and review of laboratory results Normal [facility] Progress Noteon 01-14-2025 [facility] Progress [facility] Normal [facility] Progress Note Normal [facility] US GUIDED THORACENTESISon US GUIDED THORACENTESIS Normal [facility] Vital signsOrdered By: Paxton Valentin on 01-14-2025 Heart rate 83 /min bpm [facility] [employer] Phone: XR ABDOMEN 1 VIEWon 01-15-20 25 XR ABDOMEN 1 VIEW Normal [facility] XR Abdomen Single viewon [facility] Radiology Study observation (narrative) [facility] Abdomen Single viewOrdere d By: Sami Gonzales on 01-14-2025 [facility] [employer] Phone: XR CHEST 1 VIEWon 01-14-2025 XR CHEST 1 VIEW [facility] XR Chest Single viewon 01-14 [facility] Radiology Study observation (narrative) [facility] XR Chest Single viewOrdered By: Nba Nichols on 01-14-2025 [facility] [employer] Phone: aPTT Coag (Bld) [Time]on aPTT Coag (PPP) [Time] 40.7 s High 20.0 - 30.5 s [facility] Interpretation and review of laboratory results Abnormal [facility] [place] aPTT Coag (PPP) [Time] 43.3 s High 20.0 - 30.5 s [facility] Interpretation and review of laboratory results Abnormal [facility] [place] BASIC METABOLIC PANELon 06-0 Anion gap [Moles/Vol] 10 mmol/L Normal 3-13 [facility] Comment on above: Performed By: #### L AB15 ####Lease Administration Supervisor: CHELSIE ISAACS ([phone])[facility] ([facility])[address] [place] [address] Calcium [Mass/Vol] 8.5 mg/dL Low 8.8-10.0 [facility] Comment on above: Performed By: #### L AB15 ####Lease Administration Supervisor: CHELSIE ISAACS ([phone])[facility] ([facility])[address] [place] [address] Chloride [Moles/Vol] 108 mmol/L High 98-107 [facility] Comment on above: Performed By: #### L AB15 ####Lease Administration Supervisor: CHELSIE ISAACS ([phone])[facility] ([facility])[address] [place] [address] CO2 [Moles/Vol] 20 mmol/L Low 23-31 [facility] Comment on above: Performed By: #### L AB15 ####Lease Administration Supervisor: CHELSIE ISAACS ([phone])[facility] ([facility])[address] [place] [address] Creatinine [Mass/Vol] 1.19 mg/dL High 0.57-1.11 [facility] Comment on above: Performed By: #### L AB15 ####Lease Administration Supervisor: CHELSIE ISAACS ([phone])[facility] ([facility])[address] [place] [address] GLOMERULAR FILTRATION RATE ML/MIN/1.73 SQ M.PREDICTED 46.9 mL/min/1.73m*2 Low >60.0 [facility] Comment on above: Result Comment: Calc ulation based on the Chronic Kidney Disease Epidemiology Collaboration (CKD-EPI) equation refit without adjustment for race Performed By: #### L AB15 ####Lease Administration Supervisor: CHELSIE ISAACS ([phone])[facility] ([facility])[address] [place] [address] Glucose [Mass/Vol] 144 mg/dL High 82-115 [facility] Comment on above: Performed By: #### L AB15 ####Lease Administration Supervisor: CHELSIE ISAACS ([phone])[facility] ([facility])[address] [place] [address] Potassium [Moles/Vol] 3.3 mmol/L Low 3.5-5.1 [facility] Comment on above: Result Comment: [facility] potassium values may be up to 0.5 mmol/L lower than serum values. Performed By: #### L AB15 ####Lease Administration Supervisor: CHELSIE ISAACS ([phone])[facility] ([facility])[address] [place] [address] [place] Sodium [Moles/Vol] 138 mmol/L Normal 136-145 [facility] Comment on above: Performed By: #### L AB15 ####Lease Administration Supervisor: CHELSIE ISAACS ([phone])[facility])[address] [place] [address] [place] Urea nitrogen [Mass/Vol] 22 mg/dL Normal 9-23 [facility] Comment on above: Performed By: #### L AB15 ####Lease Administration Supervisor: CHELSIE ISAACS ([phone])[facility])[address] [place] [address] Anion gap [Moles/Vol] 9 mmol/L Normal 3-13 [facility] Comment on above: Performed By: #### L AB15, [id number] ####Lease Administration Supervisor: CHELSIE ISAACS ([phone])[facility])[address] [place] [address] [place] Calcium [Mass/Vol] 8.9 mg/dL Normal 8.8-10.0 [facility] Comment on above: Performed By: #### L AB15, [id number] ####Lease Administration Supervisor: CHELSIE ISAACS ([phone])[facility] ([facility])[address] [place] [address] Chloride [Moles/Vol] 113 mmol/L High 98-107 [facility] Comment on above: Performed By: #### L AB15, [id number] ####Lease Administration Supervisor: CHELSIE ISAACS ([phone])[facility] ([facility])[address] [place] [address] CO2 [Moles/Vol] 20 mmol/L Low 23-31 [facility] Comment on above: Performed By: #### L AB15, [id number] ####Lease Administration Supervisor: CHELSIE ISAACS ([phone])[facility] ([facility])[address] [place] [address] Creatinine [Mass/Vol] 0.83 mg/dL Normal 0.57-1.11 [facility] Comment on above: Performed By: #### L AB15, [id number] ####Lease Administration Supervisor: CHELSIE ISAACS ([phone])[facility] ([facility])[address] [place] [address] GLOMERULAR FILTRATION RATE ML/MIN/1.73 SQ M.PREDICTED 72.3 mL/min/1.73m*2 Normal >60.0 [facility] Comment on above: Result Comment: Calc ulation based on the Chronic Kidney Disease Epidemiology Collaboration (CKD-EPI) equation refit without adjustment for race Performed By: #### L AB15, [id number] ####Lease Administration Supervisor: CHELSIE ISAACS ([phone])[facility] [place] [address] [place] Glucose [Mass/Vol] 155 mg/dL High 82-115 [facility] Comment on above: Performed By: #### L AB15, [id number] ####Lease Administration Supervisor: CHELSIE ISAACS ([phone])[facility] ([facility])[address] [place] [address] [place] Potassium [Moles/Vol] 4.4 mmol/L Normal 3.5-5.1 [facility] Comment on above: Result Comment: [facility] potassium values may be up to 0.5 mmol/L lower than serum values. Performed By: #### L AB15, [id number] ####Lease Administration Supervisor: CHELSIE ISAACS ([phone])[facility] ([facility])[address] [place] [address] Sodium [Moles/Vol] 142 mmol/L Normal 136-145 [facility] Comment on above: Performed By: #### L AB15, [id number] ####Lease Administration Supervisor: CHELSIE ISAACS ([phone])[facility] ([facility])[address] [place] [address] Urea nitrogen [Mass/Vol] 19 mg/dL Normal 9-23 [facility] Comment on above: Performed By: #### L AB15, [id number] ####Lease Administration Supervisor: CHELSIE ISAACS ([phone])[facility])[address] [place] [address] BLOOD GAS ARTERIALon 025 AMOUNT OF OXYGEN 4lt Normal [facility] Comment on above: Order Comment: 30 mi n after vent changes Performed By: #### L AB76 ####Lease Administration Supervisor: CHELSIE ISAACS ([phone])[facility])[address] [place] [address] Base excess Calc (Bld) [Moles/Vol] -8.8000 mmol/L Low -3.0-3.0 [facility] Comment on above: Order Comment: 30 mi n after vent changes Performed By: #### L AB76 ####Lease Administration Supervisor: CHELSIE ISAACS ([phone])[facility] ([facility])[address] [place] [address] CO2 [Moles/Vol] 15.9 mmol/L Low 23.0-27.0 [facility] Comment on above: Order Comment: 30 mi n after vent changes Performed By: #### L AB76 ####Lease Administration Supervisor: CHELSIE ISAACS ([phone])[facility])[address] [place] [address] HCO3 (Bld) [Moles/Vol] 15.1 mmol/L Low 21.0-25.0 [facility] Comment on above: Order Comment: 30 mi n after vent changes Performed By: #### L AB76 ####Lease Administration Supervisor: CHELSIE ISAACS ([phone])[facility] ([facility])[address] [place] [address] Hemoglobin (Bld) [Mass/Vol] 7.6 g/dL Normal Screen only [facility] Comment on above: Order Comment: 30 mi n after vent changes Performed By: #### L AB76 ####Lease Administration Supervisor: CHELSIE ISAACS ([phone])[facility] ([facility])[address] [place] [address] OXYGEN SATURATION (%) IN ARTERIAL BLOOD 97.2 % Normal 95.0-100.0 [facility] Comment on above: Order Comment: 30 mi n after vent changes Performed By: #### L AB76 ####Lease Administration Supervisor: CHELSIE ISAACS ([phone])[facility] ([facility])[address] [place] [address] PCO2 ARTERIAL 25.4 mm Hg Low >35.0-<45.0 [facility] Comment on above: Order Comment: 30 mi n after vent changes Performed By: #### L AB76 ####Lease Administration Supervisor: CHELSIE ISAACS ([phone])[facility] ([facility])[address] [place] [address] PH ARTERIAL 7.392 Normal 7.350-7.450 [facility] Comment on above: Order Comment: 30 mi n after vent changes Performed By: #### L AB76 ####Lease Administration Supervisor: CHELSIE ISAACS ([phone])[facility] ([facility])[address] [place] [address] PO2 ARTERIAL 108.8 mm Hg High 80.0-100.0 [facility] Comment on above: Order Comment: 30 mi n after vent changes Performed By: #### L AB76 ####Lease Administration Supervisor: CHELSIE ISAACS ([phone])[facility] ([facility])[address] [place] [address] SOURCE OF OXYGEN Nasal Cannula (LPM) Normal [facility] Comment on above: Order Comment: 30 mi n after vent changes Performed By: #### L AB76 ####Lease Administration Supervisor: CHELSIE ISAACS ([phone])[facility] ([facility])[address] [place] [address] Basic metabolic 1997 panelOr dered By: Nba Dexter on 01-13-2025 Anion gap [Moles/Vol] 10 mmol/L 3 - 13 mmol/L [facility] Calcium [Mass/Vol] 8.5 mg/dL Low 8.8 - 10. 0 mg/dL [facility] Chloride [Moles/Vol] 108 mmol/L High 98 - 10 7 mmol/L [facility] CO2 [Moles/Vol] 20 mmol/L Low 23 - 31 mmol/L [facility] Creatinine [Mass/Vol] 1.19 mg/dL High 0.57 - 1.11 mg/dL [facility] GFR/1.73 sq M.predicted (S/P/Bld) [Vol rate/Area] 46.9 mL/min Low - PINF [facility] Glucose [Mass/Vol] 144 mg/dL High 82 - 115 mg/dL [facility] Interpretation and review of laboratory results Abnormal [facility] Potassium [Moles/Vol] 3.3 mmol/L Low 3.5 - 5.1 mmol/L [facility] Sodium [Moles/Vol] 138 mmol/L 136 - 145 mmol/L [facility] Urea nitrogen [Mass/Vol] 22 mg/dL 9 - 23 mg/d L [facility] Basic metabolic 1998 panelon 01-13-2025 Anion gap [Moles/Vol] 9 mmol/L 3 - 13 mmol/L [facility] Calcium [Mass/Vol] 8.9 mg/dL 8.8 - 10. 0 mg/dL [facility] Chloride [Moles/Vol] 113 mmol/L High 98 - 10 7 mmol/L [facility] CO2 [Moles/Vol] 20 mmol/L Low 23 - 31 mmol/L [facility] Creatinine [Mass/Vol] 0.83 mg/dL 0.57 - 1.11 mg/dL [facility] GFR/1.73 sq M.predicted (S/P/Bld) [Vol rate/Area] 72.3 mL/min - PINF [facility] Glucose [Mass/Vol] 155 mg/dL High 82 - 115 mg/dL [facility] Interpretation and review of laboratory results Abnormal [facility] Potassium [Moles/Vol] 4.4 mmol/L 3.5 - 5.1 mmol/L [facility] Sodium [Moles/Vol] 142 mmol/L 136 - 145 mmol/L [facility] Urea nitrogen [Mass/Vol] 19 mg/dL 9 - 23 mg/d L [facility] CBC (HEMOGRAM)on 01-13-2025 Erythrocyte distribution width (RBC) [Ratio] 16.0 % High 11.5-15.0 [facility] Comment on above: Performed By: #### L [id number] ####Lease Administration Supervisor: CHELSIE ISAACS ([phone])[facility])[address] [place] [address] Hematocrit (Bld) [Volume fraction] 23.2 % Low 35.0-47.0 [facility] Comment on above: Performed By: #### L [id number] ####Lease Administration Supervisor: CHELSIE ISAACS ([phone])[facility])[address] [place] [address] Hemoglobin (Bld) [Mass/Vol] 7.8 g/dL Low 11.7-16.0 [facility] Comment on above: Performed By: #### L [id number] ####Lease Administration Supervisor: CHELSIE ISAACS ([phone])[facility])[address] [place] [address] [place] IPF 4 Normal [facility] Comment on above: Performed By: #### L [id number] ####Lease Administration Supervisor: CHELSIE ISAACS ([phone])[facility])[address] [place] [address] MCH (RBC) [Entitic mass] 29.9 pg Normal 26.0-34.0 [facility] Comment on above: Performed By: #### L [id number] ####Lease Administration Supervisor: CHELSIE ISAACS ([phone])[facility])[address] [place] [address] MCHC 33.6 % Normal 30.5-36.0 [facility] Comment on above: Performed By: #### L [id number] ####Lease Administration Supervisor: CHELSIE ISAACS ([phone])[facility] ([facility])[address] [place] [address] MCV (RBC) [Entitic vol] 88.9 fL Normal 77.0-99.0 [facility] Comment on above: Performed By: #### L [id number] ####Lease Administration Supervisor: CHELSIE ISAACS ([phone])[facility] ([facility])[address] [place] [address] Platelet mean volume (Bld) [Entitic vol] 10.7 fL Normal 9.0-12.7 [facility] Comment on above: Performed By: #### L [id number] ####Lease Administration Supervisor: CHELSIE ISAACS ([phone])[facility] ([facility])[address] [place] [address] Platelets (Bld) [#/Vol] 84 10*3/uL Low 140-440 [facility] Comment on above: Performed By: #### L [id number] ####Lease Administration Supervisor: CHELSIE ISAACS ([phone])[facility] ([facility])[address] [place] [address] RBC (Bld) [#/Vol] 2.61 10*6/uL Low 3.80-5.20 [facility] Comment on above: Performed By: #### L [id number] ####Lease Administration Supervisor: CHELSIE ISAACS ([phone])[facility] ([facility])[address] [place] [address] WBC (Bld) [#/Vol] 8.4 10*3/uL Normal 3.6-10.7 [facility] Comment on above: Performed By: #### L [id number] ####Lease Administration Supervisor: CHELSIE ISAACS ([phone])[facility])[address] [place] [address] Erythrocyte distribution width (RBC) [Ratio] 15.2 % High 11.5-15.0 [facility] Comment on above: Performed By: #### L [id number] ####Lease Administration Supervisor: CHELSIE ISAACS ([phone])[address] Hematocrit (Bld) [Volume fraction] 25.4 % Low 35.0-47.0 [facility] Comment on above: Performed By: #### L [id number] ####Lease Administration Supervisor: CHELSIE ISAACS ([phone])[facility])[address] [place] [address] Hemoglobin (Bld) [Mass/Vol] 8.4 g/dL Low 11.7-16.0 [facility] Comment on above: Performed By: #### L [id number] ####Lease Administration Supervisor: CHELSIE ISAACS ([phone])[address] MCH (RBC) [Entitic mass] 29.4 pg Normal 26.0-34.0 [facility] Comment on above: Performed By: #### L [id number] ####Lease Administration Supervisor: CHELSIE ISAACS ([phone])[facility])[address] [place] [address] MCHC 33.1 % Normal 30.5-36.0 [facility] Comment on above: Performed By: #### L [id number] ####Lease Administration Supervisor: CHELSIE ISAACS ([phone])[facility])[address] [place] [address] MCV (RBC) [Entitic vol] 88.8 fL Normal 77.0-99.0 S [facility] Comment on above: Performed By: #### L [id number] ####Lease Administration Supervisor: CHELSIE ISAACS ([phone])[address] Platelet mean volume (Bld) [Entitic vol] 10.7 fL Normal 9.0-12.7 [facility] Comment on above: Performed By: #### L [id number] ####Lease Administration Supervisor: CHELSIE ISAACS ([phone])[facility] ([facility])[address] [place] [address] Platelets (Bld) [#/Vol] 126 10*3/uL Low 140-440 [facility] Comment on above: Performed By: #### L [id number] ####Lease Administration Supervisor: CHELSIE ISAACS ([phone])[facility])[address] [place] [address] RBC (Bld) [#/Vol] 2.86 10*6/uL Low 3.80-5.20 [facility] Comment on above: Performed By: #### L [id number] ####Lease Administration Supervisor: CHELSIE ISAACS ([phone])[facility])[address] [place] [address] WBC (Bld) [#/Vol] 8.6 10*3/uL Normal 3.6-10.7 [facility] Comment on above: Performed By: #### L [id number] ####Lease Administration Supervisor: CHELSIE ISAACS ([phone])[facility])[address] [place] [address] CBC panel Auto (Bld)Ordered By: June Ca on 01-13-2025 Erythrocyte distribution width (RBC) [Ratio] 16 % High 11.5 - 15.0 % [facility] Hematocrit (Bld) [Volume fraction] 23.2 % Low 35.0 - 47.0 % [facility] Hemoglobin (Bld) [Mass/Vol] 7.8 g/dL Low 11.7 - 16.0 g/dL [facility] Interpretation and review of laboratory results Abnormal [facility] IPF 4 [facility] MCH (RBC) [Entitic mass] 29.9 pg 26. 0 - 34.0 pg [facility] MCHC (RBC) [Mass/Vol] 33.6 % 30.5 - 36.0 % [facility] MCV (RBC) [Entitic vol] 88.9 fL 77.0 - 99.0 fL [facility] Platelet mean volume (Bld) [Entitic vol] 10.7 fL 9.0 - 12.7 fL [facility] Platelets (Bld) [#/Vol] 84 10*3/uL Low 140 - 440 10*3/uL [facility] RBC (Bld) [#/Vol] 2.61 10*6/uL Low 3.80 - 5.2 0 10*6/uL [facility] WBC (Bld) [#/Vol] 8.4 10*3/uL 3.6 - 10.7 10*3/uL [facility] CBC panel Auto (Bld)Ordered By: Jesus Lema on 01-13-2025 Erythrocyte distribution width (RBC) [Ratio] 15.2 % High 11.5 - 15.0 % [facility] Hematocrit (Bld) [Volume fraction] 25.4 % Low 35.0 - 47.0 % [facility] Hemoglobin (Bld) [Mass/Vol] 8.4 g/dL Low 11.7 - 16.0 g/dL [facility] Interpretation and review of laboratory results Abnormal [facility] MCH (RBC) [Entitic mass] 29.4 pg 26. 0 - 34.0 pg [facility] MCHC (RBC) [Mass/Vol] 33.1 % 30.5 - 36.0 % [facility] MCV (RBC) [Entitic vol] 88.8 fL 77.0 - 99.0 fL [facility] Platelet mean volume (Bld) [Entitic vol] 10.7 fL 9.0 - 12.7 fL [facility] Platelets (Bld) [#/Vol] 126 10*3/uL Low 140 - 440 10*3/uL [facility] RBC (Bld) [#/Vol] 2.86 10*6/uL Low 3.80 - 5.2 0 10*6/uL [facility] WBC (Bld) [#/Vol] 8.6 10*3/uL 3.6 - 10.7 10*3/uL [facility] Consulton 01-13-2025 Consult Normal [facility] Consult Normal [facility] ECG 12-LEADon 01-13-2025 ECG 12-LEAD Normal [facility] ECG 12-LEAD IMPRESSION: Sinus rhythm Low voltage, precordial leads Nonspecific repol abnormality, diffuse leads Electronically Signed On 01-13-2025 10:45:05 EDT by Keegan Hill Normal [facility] Laboratory - Chemistry and C hemistry - challengeon 01-13-2025 Glucose [Mass/Vol] 149 mg/dL High 70 - 100 mg/dL [facility] Glucose [Mass/Vol] 119 mg/dL High 70 - 100 mg/dL [facility] Glucose [Mass/Vol] 98 mg/dL 70 - 100 mg/dL [facility] Glucose [Mass/Vol] 134 mg/dL High 70 - 100 mg/dL [facility] Glucose [Mass/Vol] 129 mg/dL High 70 - 100 mg/dL [facility] Glucose [Mass/Vol] 128 mg/dL High 70 - 100 mg/dL [facility] Glucose [Mass/Vol] 122 mg/dL High 70 - 100 mg/dL [facility] Glucose [Mass/Vol] 129 mg/dL High 70 - 100 mg/dL [facility] Glucose [Mass/Vol] 135 mg/dL High 70 - 100 mg/dL [facility] Glucose [Mass/Vol] 142 mg/dL High 70 - 100 mg/dL [facility] Glucose [Mass/Vol] 152 mg/dL High 70 - 100 mg/dL [facility] Glucose [Mass/Vol] 139 mg/dL High 70 - 100 mg/dL [facility] Glucose [Mass/Vol] 126 mg/dL High 70 - 100 mg/dL [facility] Glucose [Mass/Vol] 135 mg/dL High 70 - 100 mg/dL [facility] Magnesium [Mass/Vol] 2.2 mg/dL 1.6 - 2 .6 mg/dL [facility] Glucose [Mass/Vol] 155 mg/dL High 70 - 100 mg/dL [facility] Glucose [Mass/Vol] 131 mg/dL High 70 - 100 mg/dL [facility] Glucose [Mass/Vol] 83 mg/dL 70 - 100 mg/dL [facility] Laboratory - Chemistry and C hemistry - challengeOrdered By: Sarah Ulloa on 01-13-2025 Base excess Calc (Bld) [Moles/Vol] -8.8000 mmol/L Low -3.0 - 3.0 mmol/L [facility] CO2 (Bld) [Partial pressure] 25.4 mm[Hg] Low - PINF [facility] CO2 [Moles/Vol] 15.9 mmol/L Low 23.0 - 27.0 mmol/L [facility] HCO3 (Bld) [Moles/Vol] 15.1 mmol/L Low 21.0 - 25.0 mmol/L [facility] Oxygen (Bld) [Partial pressure] 108.8 mm[Hg] High [facility] pH (Bld) 7.392 [pH] 7.350 - 7.450 [facility] Laboratory - Coagulationon 0 01-13-2025 aPTT Coag (PPP) [Time] 35.5 s High 20.0 - 30.5 s [facility] INR Coag (PPP) [Relative time] 1.2 {INR} High 0.9 - 1.1 [facility] PT Coag (Bld) [Time] 12.9 s High 9.0 - 12.0 s [facility] Laboratory - Hematology and Cell countsOrdered By: Sarah Ulloa on 01-13-2025 Hemoglobin (Bld) [Mass/Vol] 7.6 g/dL 7.0 g/dl [facility] MAGNESIUMon 01-13-2025 Magnesium [Mass/Vol] 2.2 mg/dL Normal 1.6-2.6 [facility] Comment on above: Result Comment: SHARA Hand COMMENTS:Higher values can be expected in females during menses. Performed By: #### L AB15, [id number] ####Lease Administration Supervisor: CHELSIE ISAACS ([phone])[address] Magnesium [Mass/Vol]on 01-13 Interpretation and review of laboratory results Normal [facility] No Panel Informationon 01-13 Interpretation and review of laboratory results Abnormal [facility] [place] Interpretation and review of laboratory results Abnormal [facility] [place] Interpretation and review of laboratory results Normal [facility] [place] Interpretation and review of laboratory results Abnormal [facility] [place] CV EPIPHANY [facility] Interpretation and review of laboratory results Abnormal [facility] Interpretation and review of laboratory results Abnormal [facility] [place] Interpretation and review of laboratory results Abnormal [facility] [place] Interpretation and review of laboratory results Abnormal [facility] [place] Interpretation and review of laboratory results Abnormal [facility] [place] Interpretation and review of laboratory results Abnormal [facility] Interpretation and review of laboratory results Abnormal [facility] Interpretation and review of laboratory results Abnormal [facility] Interpretation and review of laboratory results Abnormal [facility] Interpretation and review of laboratory results Abnormal [facility] Interpretation and review of laboratory results Abnormal [facility] Interpretation and review of laboratory results Abnormal [facility] Interpretation and review of laboratory results Abnormal [facility] Interpretation and review of laboratory results Normal [facility] No Panel InformationOrdered By: Quincy Lopez on 01-13-2025 P [place] 0 degrees [facility] Work Phone: [place] Interval 188 ms [facility] Work Phone: QRS [place] 9 degrees [facility] Work Phone: QRSD Interval 116 ms [facility] Work Phone: QT Interval 460 ms [facility] Work Phone: QTC Interval 521 ms [facility] Work Phone: T Wave [place] -34 degrees [facility] Work Phone: [facility] Work Phone: No Panel InformationOrdered By: Keegan Hill on 01-13-2025 P [place] 62 degrees [facility] Work Phone: [place] Interval 186 ms [facility] Work Phone: QRS [place] -13 degrees [facility] Work Phone: QRSD Interval 84 ms [facility] Work Phone: QT Interval 400 ms [facility] Work Phone: QTC Interval 476 ms [facility] Work Phone: T Wave [place] -62 degrees [facility] Work Phone: [facility] Work Phone: No Panel InformationOrdered By: Sarah Ulloa on 01-13-2025 Amount Of Oxygen 4lt [facility] Interpretation and review of laboratory results Abnormal [facility] Source Of Oxygen Nasal Cannula (LPM) [facility] PROTIME AND APTTon aPTT Coag (Bld) [Time] 35.5 s High 20.0-30.5 [facility] Comment on above: Performed By: #### L [id number] ####Lease Administration Supervisor: CHELSIE ISAACS ([phone])[facility])[address] [place] [address] INR Coag (PPP) [Relative time] 1.2 {INR} High 0.9-1.1 [facility] Comment on above: Result Comment: Sridhar mmended Anticoagulant Therapy: SEE BELOW----- INR of 2.0 - 3.0 : - Prophylaxis of Venous Thrombosis (high-risk surgery) - Treatment of Venous Thrombosis - Treatment of Pulmonary Embolism (Includes tissue heart valves, Acute Myocardial Infarction to prevent systemic embolism, Valvular Heart Disease, and Atrial Fibrillation)----- INR of 2.5 - 3.5 : - Mechanical Prosthetic Valves (high risk) - If oral anticoagulant therapy is used to prevent Myocardial Infarction Performed By: #### L [id number] ####Lease Administration Supervisor: CHELSIE ISAACS ([phone])[facility] ([facility])[address] [place] [address] PT Coag (PPP) [Time] 12.9 s High 9.0-12.0 [facility] Comment on above: Performed By: #### L [id number] ####Lease Administration Supervisor: CHELSIE ISAACS ([phone])[facility])[address] [place] [address] Progress Noteon 01-13-2025 Progress Note Normal [facility] Progress Note Normal [facility] Progress Note Normal [facility] Progress Note Normal [facility] Vital signsOrdered By: Quincy Lopez on 01-13-2025 Heart rate 77 /min bpm [email or web address] Work Phone: Vital signsOrdered By: Alexandra Hill on 01-13-2025 Heart rate 85 /min bpm [email or web address] Work Phone: XR CHEST 1 VIEWon 01-13-2025 XR CHEST 1 VIEW Normal [facility] XR Chest Single viewon 01-13 [facility] Radiology Study observation (narrative) Leda piña [id number] 01-12-2025 [id number] Normal [facility] [id number] 01-12-2025 [id number] Normal [facility] APTTon 01-12-2025 aPTT Coag (Bld) [Time] 26.8 s Normal 20.0-30.5 [facility] Comment on above: Result Comment: SHARA Hand COMMENTS:NOTE: The therapeutic time for Heparin anticoagulation, based on Xa activity inhibition, is an APTT of 46-80 seconds. Performed By: #### L [id number], [id number] ####Lease Administration Supervisor: CHELSIE ISAACS ([phone])[facility] ([facility])[address] [place] [address] Anesthesia Noteon 01-12-2025 Anesthesia Note Normal [facility] Anesthesia Note Normal [facility] BASIC METABOLIC PANELon 06 Anion gap [Moles/Vol] 10 mmol/L Normal 3-13 [facility] Comment on above: Performed By: #### L AB15 ####Lease Administration Supervisor: CHELSIE ISAACS ([phone])[facility] ([facility])[address] [place] [address] Calcium [Mass/Vol] 7.2 mg/dL Low 8.8-10.0 [facility] Comment on above: Performed By: #### L AB15 ####Lease Administration Supervisor: CHELSIE ISAACS ([phone])[facility] ([facility])[address] [place] [address] [place] Chloride [Moles/Vol] 119 mmol/L High 98-107 [facility] Comment on above: Performed By: #### L AB15 ####Lease Administration Supervisor: CHELSIE ISAACS ([phone])[facility] ([facility])[address] [place] [address] [place] CO2 [Moles/Vol] 18 mmol/L Low 23-31 [facility] Comment on above: Performed By: #### L AB15 ####Lease Administration Supervisor: CHELSIE ISAACS ([phone])[facility])[address] [place] [address] Creatinine [Mass/Vol] 0.80 mg/dL Normal 0.57-1.11 [facility] Comment on above: Performed By: #### L AB15 ####Lease Administration Supervisor: CHELSIE ISAACS ([phone])[facility])[address] [place] [address] GLOMERULAR FILTRATION RATE ML/MIN/1.73 SQ M.PREDICTED 75.5 mL/min/1.73m*2 Normal >60.0 [facility] Comment on above: Result Comment: Calc ulation based on the Chronic Kidney Disease Epidemiology Collaboration (CKD-EPI) equation refit without adjustment for race Performed By: #### L AB15 ####Lease Administration Supervisor: CHELSIE ISAACS ([phone])[facility])[address] [place] [address] Glucose [Mass/Vol] 222 mg/dL High 82-115 [facility] Comment on above: Performed By: #### L AB15 ####Lease Administration Supervisor: CHELSIE ISAACS ([phone])[facility])[address] [place] [address] Potassium [Moles/Vol] 4.3 mmol/L Normal 3.5-5.1 [facility] Comment on above: Result Comment: [facility] potassium values may be up to 0.5 mmol/L lower than serum values. Performed By: #### L AB15 ####Lease Administration Supervisor: CHELSIE ISAACS ([phone])[facility])[address] [place] [address] [place] Sodium [Moles/Vol] 147 mmol/L High 136-145 [facility] Comment on above: Performed By: #### L AB15 ####Lease Administration Supervisor: CHELSIE ISAACS ([phone])[facility])[address] [place] [address] [place] Urea nitrogen [Mass/Vol] 18 mg/dL Normal 9-23 [facility] Comment on above: Performed By: #### L AB15 ####Lease Administration Supervisor: CHELSIE ISAACS ([phone])[facility] ([facility])[address] [place] [address] Anion gap [Moles/Vol] 9 mmol/L Normal 3-13 [facility] Comment on above: Performed By: #### L AB103, LAB20, LAB15 ####Lease Administration Supervisor: CHELSIE ISAACS ([phone])[facility] [place] [address] Calcium [Mass/Vol] 7.4 mg/dL Low 8.8-10.0 [facility] Comment on above: Performed By: #### L AB103, LAB20, LAB15 ####Lease Administration Supervisor: CHELSIE ISAACS ([phone])[facility] [place] [address] Chloride [Moles/Vol] 120 mmol/L High 98-107 [facility] Comment on above: Performed By: #### L AB103, LAB20, LAB15 ####Lease Administration Supervisor: CHELSIE ISAACS ([phone])[facility] ([facility])[address] [place] [address] CO2 [Moles/Vol] 17 mmol/L Low 23-31 [facility] Comment on above: Performed By: #### L AB103, LAB20, LAB15 ####Lease Administration Supervisor: CHELSIE ISAACS ([phone])[facility] ([facility])[address] [place] [address] Creatinine [Mass/Vol] 0.75 mg/dL Normal 0.57-1.11 [facility] Comment on above: Performed By: #### L AB103, LAB20, LAB15 ####Lease Administration Supervisor: CHELSIE ISAACS ([phone])[facility] ([facility])[address] [place] [address] GLOMERULAR FILTRATION RATE ML/MIN/1.73 SQ M.PREDICTED 81.6 mL/min/1.73m*2 Normal >60.0 [facility] Comment on above: Result Comment: Calc ulation based on the Chronic Kidney Disease Epidemiology Collaboration (CKD-EPI) equation refit without adjustment for race Performed By: #### L AB103, LAB20, LAB15 ####Lease Administration Supervisor: CHELSIE ISAACS ([phone])[facility] ([facility])[address] [place] [address] Glucose [Mass/Vol] 113 mg/dL Normal 82-115 [facility] Comment on above: Performed By: #### L AB103, LAB20, LAB15 ####Lease Administration Supervisor: CHELSIE ISAACS ([phone])[facility] ([facility])[address] [place] [address] Potassium [Moles/Vol] 3.4 mmol/L Low 3.5-5.1 [facility] Comment on above: Result Comment: [facility] potassium values may be up to 0.5 mmol/L lower than serum values. Performed By: #### L AB103, LAB20, LAB15 ####Lease Administration Supervisor: CHELSIE ISAACS ([phone])[facility] [place] [address] [place] Sodium [Moles/Vol] 146 mmol/L High 136-145 [facility] Comment on above: Performed By: #### L AB103, LAB20, LAB15 ####Lease Administration Supervisor: CHELSIE ISAACS ([phone])[facility] [place] [address] [place] Urea nitrogen [Mass/Vol] 19 mg/dL Normal 9-23 [facility] Comment on above: Performed By: #### L AB103, LAB20, LAB15 ####Lease Administration Supervisor: CHELSIE ISAACS ([phone])[facility] ([facility])[address] [place] [address] [place] Anion gap [Moles/Vol] 10 mmol/L Normal 3-13 [facility] Comment on above: Performed By: #### L AB103, [id number], LAB15 ####Lease Administration Supervisor: CHELSIE ISAACS ([phone])[facility] ([facility])[address] [place] [address] Calcium [Mass/Vol] 9.1 mg/dL Normal 8.8-10.0 [facility] Comment on above: Performed By: #### L AB103, ZCM199, LAB15 ####Lease Administration Supervisor: CHELSIE ISAACS ([phone])[facility] [place] [address] Chloride [Moles/Vol] 117 mmol/L High 98-107 [facility] Comment on above: Performed By: #### L AB103, LEZ122, LAB15 ####Lease Administration Supervisor: CHELSIE ISAACS ([phone])[facility] ([facility])[address] [place] [address] CO2 [Moles/Vol] 18 mmol/L Low 23-31 [facility] Comment on above: Performed By: #### Joseph AB103, OVW019, LAB15 ####Lease Administration Supervisor: CHELSIE ISAACS ([phone])[facility] ([facility])[address] [place] [address] Creatinine [Mass/Vol] 0.84 mg/dL Normal 0.57-1.11 [facility] Comment on above: Performed By: #### L AB103, [id number], LAB15 ####Lease Administration Supervisor: CHELSIE ISAACS ([phone])[facility] ([facility])[address] [place] [address] [place] GLOMERULAR FILTRATION RATE ML/MIN/1.73 SQ M.PREDICTED 71.2 mL/min/1.73m*2 Normal >60.0 [facility] Comment on above: Result Comment: Calc ulation based on the Chronic Kidney Disease Epidemiology Collaboration (CKD-EPI) equation refit without adjustment for race Performed By: #### L AB103, IZS205, LAB15 ####Lease Administration Supervisor: CHELSIE ISAACS ([phone])[facility] ([facility])[address] [place] [address] [place] Glucose [Mass/Vol] 138 mg/dL High 82-115 [facility] Comment on above: Performed By: #### L AB103, INB883, LAB15 ####Lease Administration Supervisor: CHELSIE ISAACS ([phone])[facility])[address] [place] [address] Potassium [Moles/Vol] 3.5 mmol/L Normal 3.5-5.1 [facility] Comment on above: Result Comment: [facility] potassium values may be up to 0.5 mmol/L lower than serum values. Performed By: #### L AB103, [id number], LAB15 ####Lease Administration Supervisor: CHELSIE ISAACS ([phone])[facility] ([facility])[address] [place] [address] Sodium [Moles/Vol] 145 mmol/L Normal 136-145 [facility] Comment on above: Performed By: #### L AB103, [id number], LAB15 ####Lease Administration Supervisor: CHELSIE ISAACS ([phone])[facility])[address] [place] [address] Urea nitrogen [Mass/Vol] 21 mg/dL Normal 9-23 [facility] Comment on above: Performed By: #### L AB103, QCL897, LAB15 ####Lease Administration Supervisor: CHELSIE ISAACS ([phone])[facility])[address] [place] [address] BLOOD GAS ARTERIALon 0602-2 025 AMOUNT OF OXYGEN 4 Normal [facility] Comment on above: Performed By: #### L AB76 ####Lease Administration Supervisor: CHELSIE ISAACS ([phone])[facility])[address] [place] [address] Base excess Calc (Bld) [Moles/Vol] -5.8000 mmol/L Low -3.0-3.0 [facility] Comment on above: Performed By: #### L AB76 ####Lease Administration Supervisor: CHELSIE ISAACS ([phone])[facility])[address] [place] [address] CO2 [Moles/Vol] 20.4 mmol/L Low 23.0-27.0 [facility] Comment on above: Performed By: #### L AB76 ####Lease Administration Supervisor: CHELSIE ISAACS ([phone])[facility] ([facility])[address] [place] [address] HCO3 (Bld) [Moles/Vol] 19.3 mmol/L Low 21.0-25.0 S [facility] Comment on above: Performed By: #### L AB76 ####Lease Administration Supervisor: CHELSIE ISAACS ([phone])[facility] ([facility])[address] [place] [address] Hemoglobin (Bld) [Mass/Vol] 7.8 g/dL Normal Screen only [facility] Comment on above: Performed By: #### L AB76 ####Lease Administration Supervisor: CHELSIE ISAACS ([phone])[facility] ([facility])[address] [place] [address] OXYGEN SATURATION (%) IN ARTERIAL BLOOD 98.1 % Normal 95.0-100.0 [facility] Comment on above: Performed By: #### L AB76 ####Lease Administration Supervisor: CHELSIE ISAACS ([phone])[facility] ([facility])[address] [place] [address] PCO2 ARTERIAL 36.2 mm Hg Normal >35.0-<45.0 [place] [facility] Comment on above: Performed By: #### L [id number] ####Lease Administration Supervisor: CHELSIE ISAACS ([phone])[facility] ([facility])[address] [place] [address] PH ARTERIAL 7.345 Low 7.350-7.450 [facility] Comment on above: Performed By: #### L [id number] ####Lease Administration Supervisor: CHELSIE ISAACS ([phone])[facility] ([facility])[address] [place] [address] PO2 ARTERIAL 132.9 mm Hg High 80.0-100.0 [facility] Comment on above: Performed By: #### L [id number] ####Lease Administration Supervisor: CHELSIE ISAACS ([phone])[facility] ([facility])[address] [place] [address] SOURCE OF OXYGEN Nasal Cannula (LPM) Normal [facility] Comment on above: Performed By: #### L [id number] ####Lease Administration Supervisor: CHELSIE ISAACS ([phone])[facility] ([facility])[address] [place] [address] AMOUNT OF OXYGEN 40 Normal [facility] Comment on above: Performed By: #### L [id number] ####Lease Administration Supervisor: CHELSIE ISAACS ([phone])[facility] ([facility])[address] [place] [address] Base excess Calc (Bld) [Moles/Vol] -5.0000 mmol/L Low -3.0-3.0 [facility] Comment on above: Performed By: #### L [id number] ####Lease Administration Supervisor: CHELSIE ISAACS ([phone])[facility] ([facility])[address] [place] [address] CO2 [Moles/Vol] 21.7 mmol/L Low 23.0-27.0 [facility] Comment on above: Performed By: #### L [id number] ####Lease Administration Supervisor: CHELSIE ISAACS ([phone])[facility] ([facility])[address] [place] [address] HCO3 (Bld) [Moles/Vol] 20.5 mmol/L Low 21.0-25.0 S [facility] Comment on above: Performed By: #### L [id number] ####Lease Administration Supervisor: CHELSIE ISAACS ([phone])[facility] ([facility])[address] [place] [address] Hemoglobin (Bld) [Mass/Vol] 9.2 g/dL Normal Screen only [facility] Comment on above: Performed By: #### L AB76 ####Lease Administration Supervisor: CHELSIE ISAACS ([phone])[facility])[address] [place] [address] OXYGEN SATURATION (%) IN ARTERIAL BLOOD 97.5 % Normal 95.0-100.0 [facility] Comment on above: Performed By: #### L AB76 ####Lease Administration Supervisor: CHELSIE [phone])[facility] ([facility])[address] [place] [address] PCO2 ARTERIAL 39.5 mm Hg Normal >35.0-<45.0 [facility] Comment on above: Performed By: #### L [id number] ####Lease Administration Supervisor: CHELSIE ISAACS ([phone])[facility] ([facility])[address] [place] [address] PH ARTERIAL 7.333 Low 7.350-7.450 [facility] Comment on above: Performed By: #### L [id number] ####Lease Administration Supervisor: CHELSIE ISAACS ([phone])[facility] ([facility])[address] [place] [address] PO2 ARTERIAL 122.0 mm Hg High 80.0-100.0 [facility] Comment on above: Performed By: #### L [id number] ####Lease Administration Supervisor: CHELSIE ISAACS ([phone])[facility])[address] [place] [address] SOURCE OF OXYGEN Ventilator Normal [facility] Comment on above: Performed By: #### L [id number] ####Lease Administration Supervisor: CHELSIE ISAACS ([phone])[facility] ([facility])[address] [place] [address] AMOUNT OF OXYGEN 50 Normal [facility] Comment on above: Performed By: #### L [id number] ####Lease Administration Supervisor: CHELSIE ISAACS ([phone])[facility] ([facility])[address] [place] [address] Base excess Calc (Bld) [Moles/Vol] -7.5000 mmol/L Low -3.0-3.0 [facility] Comment on above: Performed By: #### L [id number] ####Lease Administration Supervisor: CHELSIE ISAACS ([phone])[facility])[address] [place] [address] CO2 [Moles/Vol] 20.5 mmol/L Low 23.0-27.0 [facility] Comment on above: Performed By: #### L AB76 ####Lease Administration Supervisor: CHELSIE [phone])[facility] ([facility])[address] [place] [address] HCO3 (Bld) [Moles/Vol] 19.2 mmol/L Low 21.0-25.0 S [facility] Comment on above: Performed By: #### L AB76 ####Lease Administration Supervisor: CHELSIE ISAACS ([phone])[facility] [place] [address] Hemoglobin (Bld) [Mass/Vol] 8.9 g/dL Normal Screen only [facility] Comment on above: Performed By: #### L AB76 ####Lease Administration Supervisor: CHELSIE ISAACS ([phone])[facility] ([facility])[address] [place] [address] OXYGEN SATURATION (%) IN ARTERIAL BLOOD 97.9 % Normal 95.0-100.0 [facility] Comment on above: Performed By: #### L [id number] ####Lease Administration Supervisor: CHELSIE ISAACS ([phone])[facility] [place] [address] PCO2 ARTERIAL 44.1 mm Hg Normal >35.0-<45.0 [facility] Comment on above: Performed By: #### L AB76 ####Lease Administration Supervisor: CHELSIE ISAACS ([phone])[facility] ([facility])[address] [place] [address] PH ARTERIAL 7.256 Low 7.350-7.450 [facility] Comment on above: Performed By: #### L AB76 ####Lease Administration Supervisor: CHELSIE ISAACS ([phone])[facility] ([facility])[address] [place] [address] PO2 ARTERIAL 164.0 mm Hg High 80.0-100.0 [facility] Comment on above: Performed By: #### L AB76 ####Lease Administration Supervisor: CHELSIE ISAACS ([phone])[facility] ([facility])[address] [place] [address] SOURCE OF OXYGEN Ventilator Normal [facility] Comment on above: Performed By: #### L AB76 ####Lease Administration Supervisor: CHELSIE ISAACS ([phone])[facility] ([facility])[address] [place] [address] AMOUNT OF OXYGEN 100 Normal [facility] Comment on above: Performed By: #### L AB76 ####Lease Administration Supervisor: CHELSIE ISAACS ([phone])[facility])[address] [place] [address] Base excess Calc (Bld) [Moles/Vol] -5.7000 mmol/L Low -3.0-3.0 [facility] Comment on above: Performed By: #### L AB76 ####Lease Administration Supervisor: CHELSIE ISAACS ([phone])[facility])[address] [place] [address] CO2 [Moles/Vol] 20.3 mmol/L Low 23.0-27.0 [facility] Comment on above: Performed By: #### L AB76 ####Lease Administration Supervisor: CHELSIE ISAACS ([phone])[facility] ([facility])[address] [place] [address] HCO3 (Bld) [Moles/Vol] 19.3 mmol/L Low 21.0-25.0 [facility] Comment on above: Performed By: #### L AB76 ####Lease Administration Supervisor: CHELSIE ISAACS ([phone])[facility])[address] [place] [address] Hemoglobin (Bld) [Mass/Vol] 8.2 g/dL Normal Screen only [facility] Comment on above: Performed By: #### L AB76 ####Lease Administration Supervisor: CHELSIE ISAACS ([phone])[facility])[address] [place] [address] OXYGEN SATURATION (%) IN ARTERIAL BLOOD 98.8 % Normal 95.0-100.0 [facility] Comment on above: Performed By: #### L AB76 ####Lease Administration Supervisor: CHELSIE ISAACS ([phone])[facility] ([facility])[address] [place] [address] PCO2 ARTERIAL 35.1 mm Hg Normal >35.0-<45.0 [facility] Comment on above: Performed By: #### L [id number] ####Lease Administration Supervisor: CHELSIE ISAACS ([phone])[facility] ([facility])[address] [place] [address] PH ARTERIAL 7.357 Normal 7.350-7.450 [facility] Comment on above: Performed By: #### L AB76 ####Lease Administration Supervisor: CHELSIE ISAACS ([phone])[facility] [place] [address] PO2 ARTERIAL 320.7 mm Hg High 80.0-100.0 [facility] Comment on above: Performed By: #### L AB76 ####Lease Administration Supervisor: CHELSIE ISAACS ([phone])[facility] ([facility])[address] [place] [address] SOURCE OF OXYGEN Ventilator Normal [facility] Comment on above: Performed By: #### L AB76 ####Lease Administration Supervisor: CHELSIE ISAACS ([phone])[facility] ([facility])[address] [place] [address] Basic metabolic 1998 panelon 01-12-2025 Anion gap [Moles/Vol] 10 mmol/L 3 - 13 mmol/L [facility] Calcium [Mass/Vol] 7.2 mg/dL Low 8.8 - 10. 0 mg/dL [facility] Chloride [Moles/Vol] 119 mmol/L High 98 - 10 7 mmol/L [facility] CO2 [Moles/Vol] 18 mmol/L Low 23 - 31 mmol/L [facility] Creatinine [Mass/Vol] 0.8 mg/dL 0.57 - 1.11 mg/dL [facility] GFR/1.73 sq M.predicted (S/P/Bld) [Vol rate/Area] 75.5 mL/min - PINF [facility] Glucose [Mass/Vol] 222 mg/dL High 82 - 115 mg/dL [facility] Interpretation and review of laboratory results Abnormal [facility] Potassium [Moles/Vol] 4.3 mmol/L 3.5 - 5.1 mmol/L [facility] Sodium [Moles/Vol] 147 mmol/L High 136 - 145 mmol/L [facility] Urea nitrogen [Mass/Vol] 18 mg/dL 9 - 23 mg/d L [facility] CALCIUM, IONIZEDon CALCIUM IONIZED 5.10 mg/dL Normal 4.30-5.20 [facility] Comment on above: Performed By: #### L AB54 ####Lease Administration Supervisor: CHELSIE ISAACS ([phone])[facility])[address] [place] [address] PH, IONIZED CALCIUM 7.35 Normal 7.31-7.46 [facility] Comment on above: Performed By: #### L AB54 ####Lease Administration Supervisor: CHELSIE ISAACS ([phone])[facility])[address] [place] [address] CBC (HEMOGRAM)on 01-12-2025 Erythrocyte distribution width (RBC) [Ratio] 14.2 % Normal 11.5-15.0 [facility] Comment on above: Performed By: #### L [id number] ####Lease Administration Supervisor: CHELSIE ISAACS ([phone])[facility])[address] [place] [address] Hematocrit (Bld) [Volume fraction] 24.0 % Low 35.0-47.0 [facility] Comment on above: Performed By: #### L [id number] ####Lease Administration Supervisor: CHELSIE ISAACS ([phone])[facility])[address] [place] [address] Hemoglobin (Bld) [Mass/Vol] 7.7 g/dL Low 11.7-16.0 [facility] Comment on above: Performed By: #### L [id number] ####Lease Administration Supervisor: CHELSIE ISAACS ([phone])[facility])[address] [place] [address] MCH (RBC) [Entitic mass] 29.6 pg Normal 26.0-34.0 [facility] Comment on above: Performed By: #### L [id number] ####Lease Administration Supervisor: CHELSIE ISAACS ([phone])[facility] ([facility])[address] [place] [address] MCHC 32.1 % Normal 30.5-36.0 [facility] Comment on above: Performed By: #### L [id number] ####Lease Administration Supervisor: CHELSIE ISAACS ([phone])[facility] ([facility])[address] [place] [address] MCV (RBC) [Entitic vol] 92.3 fL Normal 77.0-99.0 S [facility] Comment on above: Performed By: #### L [id number] ####Lease Administration Supervisor: CHELSIE ISAACS ([phone])[facility])[address] [place] [address] Platelet mean volume (Bld) [Entitic vol] 10.2 fL Normal 9.0-12.7 [facility] Comment on above: Performed By: #### L [id number] ####Lease Administration Supervisor: CHELSIE ISAACS ([phone])[facility] ([facility])[address] [place] [address] Platelets (Bld) [#/Vol] 169 10*3/uL Normal 140-440 [facility] Comment on above: Performed By: #### L [id number] ####Lease Administration Supervisor: CHELSIE ISAACS ([phone])[facility])[address] [place] [address] RBC (Bld) [#/Vol] 2.60 10*6/uL Low 3.80-5.20 [facility] Comment on above: Performed By: #### L [id number] ####Lease Administration Supervisor: CHELSIE ISAACS ([phone])[facility])[address] [place] [address] WBC (Bld) [#/Vol] 13.3 10*3/uL High 3.6-10.7 [facility] Comment on above: Performed By: #### L [id number] ####Lease Administration Supervisor: CHELSIE ISAACS ([phone])[facility])[address] [place] [address] Erythrocyte distribution width (RBC) [Ratio] 14.2 % Normal 11.5-15.0 [facility] Comment on above: Performed By: #### L [id number] ####Lease Administration Supervisor: CHELSIE ISAACS ([phone])[facility])[address] [place] [address] Hematocrit (Bld) [Volume fraction] 26.1 % Low 35.0-47.0 [facility] Comment on above: Performed By: #### L [id number] ####Lease Administration Supervisor: CHELSIE ISAACS ([phone])[facility])[address] [place] [address] Hemoglobin (Bld) [Mass/Vol] 8.2 g/dL Low 11.7-16.0 [facility] Comment on above: Performed By: #### L [id number] ####Lease Administration Supervisor: CHELSIE ISAACS ([phone])[facility])[address] [place] [address] [place] IPF 2 Normal [facility] Comment on above: Performed By: #### L [id number] ####Lease Administration Supervisor: CHELSIE ISAACS ([phone])[facility])[address] [place] [address] MCH (RBC) [Entitic mass] 29.0 pg Normal 26.0-34.0 [facility] Comment on above: Performed By: #### L [id number] ####Lease Administration Supervisor: CHELSIE ISAACS ([phone])[facility])[address] [place] [address] MCHC 31.4 % Normal 30.5-36.0 [facility] Comment on above: Performed By: #### L [id number] ####Lease Administration Supervisor: CHELSIE ISAACS ([phone])[facility])[address] [place] [address] MCV (RBC) [Entitic vol] 92.2 fL Normal 77.0-99.0 [facility] Comment on above: Performed By: #### L [id number] ####Lease Administration Supervisor: CHELSIE ISAACS ([phone])[facility])[address] [place] [address] Platelet mean volume (Bld) [Entitic vol] 9.8 fL Normal 9.0-12.7 [facility] Comment on above: Performed By: #### L [id number] ####Lease Administration Supervisor: CHELSIE ISAACS ([phone])[facility] ([facility])[address] [place] [address] Platelets (Bld) [#/Vol] 90 10*3/uL Low 140-440 [facility] Comment on above: Performed By: #### L [id number] ####Lease Administration Supervisor: CHELSIE ISAACS ([phone])[facility])[address] [place] [address] RBC (Bld) [#/Vol] 2.83 10*6/uL Low 3.80-5.20 [facility] Comment on above: Performed By: #### L [id number] ####Lease Administration Supervisor: CHELSIE ISAACS ([phone])[facility])[address] [place] [address] WBC (Bld) [#/Vol] 10.3 10*3/uL Normal 3.6-10.7 [facility] Comment on above: Performed By: #### L [id number] ####Lease Administration Supervisor: CHELSIE ISAACS ([phone])[facility])[address] [place] [address] Erythrocyte distribution width (RBC) [Ratio] 14.1 % Normal 11.5-15.0 [facility] Comment on above: Performed By: #### L [id number] ####Lease Administration Supervisor: CHELSIE ISAACS ([phone])[facility])[address] [place] [address] Hematocrit (Bld) [Volume fraction] 24.1 % Low 35.0-47.0 [facility] Comment on above: Performed By: #### L [id number] ####Lease Administration Supervisor: CHELSIE ISAACS ([phone])[facility] ([facility])[address] [place] [address] Hemoglobin (Bld) [Mass/Vol] 7.5 g/dL Low 11.7-16.0 [facility] Comment on above: Performed By: #### L [id number] ####Lease Administration Supervisor: CHELSIE ISAACS ([phone])[facility] ([facility])[address] [place] [address] MCH (RBC) [Entitic mass] 28.8 pg Normal 26.0-34.0 [facility] Comment on above: Performed By: #### L [id number] ####Lease Administration Supervisor: CHELSIE ISAACS ([phone])[facility])[address] [place] [address] MCHC 31.1 % Normal 30.5-36.0 [facility] Comment on above: Performed By: #### L [id number] ####Lease Administration Supervisor: CHELSIE ISAACS ([phone])[facility] ([facility])[address] [place] [address] MCV (RBC) [Entitic vol] 92.7 fL Normal 77.0-99.0 [facility] Comment on above: Performed By: #### L [id number] ####Lease Administration Supervisor: CHELSIE ISAACS ([phone])[facility] ([facility])[address] [place] [address] Platelet mean volume (Bld) [Entitic vol] 10.2 fL Normal 9.0-12.7 [facility] Comment on above: Performed By: #### L [id number] ####Lease Administration Supervisor: CHELSIE ISAACS ([phone])[facility])[address] [place] [address] Platelets (Bld) [#/Vol] 111 10*3/uL Low 140-440 [facility] Comment on above: Performed By: #### L [id number] ####Lease Administration Supervisor: CHELSEI ISAACS ([phone])[facility])[address] [place] [address] RBC (Bld) [#/Vol] 2.60 10*6/uL Low 3.80-5.20 [facility] Comment on above: Performed By: #### L [id number] ####Lease Administration Supervisor: CHELSIE ISAACS ([phone])[facility])[address] [place] [address] WBC (Bld) [#/Vol] 13.0 10*3/uL High 3.6-10.7 [facility] Comment on above: Performed By: #### L [id number] ####Lease Administration Supervisor: CHELSIE ISAACS ([phone])[address] Erythrocyte distribution width (RBC) [Ratio] 14.1 % Normal 11.5-15.0 [facility] Comment on above: Performed By: #### L [id number] ####Lease Administration Supervisor: CHELSIE ISAACS ([phone])[facility])[address] [place] [address] Hematocrit (Bld) [Volume fraction] 39.9 % Normal 35.0-47.0 [facility] Comment on above: Performed By: #### L [id number] ####Lease Administration Supervisor: CHELSIE ISAACS ([phone])[address] Hemoglobin (Bld) [Mass/Vol] 13.1 g/dL Normal 11.7-16.0 [facility] Comment on above: Performed By: #### L [id number] ####Lease Administration Supervisor: CHELSIE ISAACS ([phone])[facility])[address] [place] [address] MCH (RBC) [Entitic mass] 29.3 pg Normal 26.0-34.0 [facility] Comment on above: Performed By: #### L [id number] ####Lease Administration Supervisor: CHELSIE ISAACS ([phone])[facility])[address] [place] [address] MCHC 32.8 % Normal 30.5-36.0 [facility] Comment on above: Performed By: #### L [id number] ####Lease Administration Supervisor: CHELSIE ISAACS ([phone])[facility] ([facility])[address] [place] [address] MCV (RBC) [Entitic vol] 89.3 fL Normal 77.0-99.0 [facility] Comment on above: Performed By: #### L [id number] ####Lease Administration Supervisor: CHELSIE ISAACS ([phone])[facility] ([facility])[address] [place] [address] Platelet mean volume (Bld) [Entitic vol] 9.9 fL Normal 9.0-12.7 [facility] Comment on above: Performed By: #### L [id number] ####Lease Administration Supervisor: CHELSIE ISAACS ([phone])[facility] ([facility])[address] [place] [address] Platelets (Bld) [#/Vol] 222 10*3/uL Normal 140-440 [facility] Comment on above: Performed By: #### L [id number] ####Lease Administration Supervisor: CHELSIE ISAACS ([phone])[facility] ([facility])[address] [place] [address] RBC (Bld) [#/Vol] 4.47 10*6/uL Normal 3.80-5.20 [facility] Comment on above: Performed By: #### L [id number] ####Lease Administration Supervisor: CHELSIE ISAACS ([phone])[facility] ([facility])[address] [place] [address] WBC (Bld) [#/Vol] 5.5 10*3/uL Normal 3.6-10.7 [facility] Comment on above: Performed By: #### L [id number] ####Lease Administration Supervisor: CHELSIE ISAACS ([phone])[facility])[address] [place] [address] CBC panel Auto (Bld)Ordered By: Amairani Coronado on 01-12-2025 Erythrocyte distribution width (RBC) [Ratio] 14.2 % 11.5 - 15.0 % [facility] Hematocrit (Bld) [Volume fraction] 24 % Low 35.0 - 47.0 % [facility] Hemoglobin (Bld) [Mass/Vol] 7.7 g/dL Low 11.7 - 16.0 g/dL [facility] Interpretation and review of laboratory results Abnormal [facility] MCH (RBC) [Entitic mass] 29.6 pg 26. 0 - 34.0 pg [facility] MCHC (RBC) [Mass/Vol] 32.1 % 30.5 - 36.0 % [facility] MCV (RBC) [Entitic vol] 92.3 fL 77.0 - 99.0 fL [facility] Platelet mean volume (Bld) [Entitic vol] 10.2 fL 9.0 - 12.7 fL [facility] Platelets (Bld) [#/Vol] 169 10*3/uL 140 - 440 10*3/uL [facility] RBC (Bld) [#/Vol] 2.6 10*6/uL Low 3.80 - 5.2 0 10*6/uL [facility] WBC (Bld) [#/Vol] 13.3 10*3/uL High 3.6 - 10.7 10*3/uL [facility] COMPREHENSIVE METABOLIC PANE Lino 01-12-2025 Albumin [Mass/Vol] 3.4 g/dL Normal 3.4-4.8 [facility] Comment on above: Performed By: #### L AB18, LAB17, [id number] ####Lease Administration Supervisor: CHELSIE ISAACS ([phone])[address] ALP [Catalytic activity/Vol] 85 U/L Normal 40-150 [facility] Comment on above: Performed By: #### L AB18, LAB17, [id number] ####Lease Administration Supervisor: CHELSIE SIAACS ([phone])[address] ALT [Catalytic activity/Vol] 32 U/L High <30 [facility] Comment on above: Performed By: #### L AB18, LAB17, [id number] ####Lease Administration Supervisor: CHELSIE ISAACS ([phone])[facility] ([facility])[address] [place] [address] Anion gap [Moles/Vol] 10 mmol/L Normal 3-13 [facility] Comment on above: Performed By: #### Joseph AB18, LAB17, [id number] ####Lease Administration Supervisor: CHELSIE ISAACS ([phone])[facility] ([facility])[address] [place] [address] AST [Catalytic activity/Vol] 35 U/L High <34 [facility] Comment on above: Performed By: #### Joseph AB18, LAB17, [id number] ####Lease Administration Supervisor: CHELSIE ISAACS ([phone])[facility] ([facility])[address] [place] [address] Bilirubin [Mass/Vol] 0.4 mg/dL Normal <1.2 [facility] Comment on above: Performed By: #### Joseph AB18, LAB17, [id number] ####Lease Administration Supervisor: CHELSIE ISAACS ([phone])[facility] ([facility])[address] [place], [place] [address] Calcium [Mass/Vol] 9.4 mg/dL Normal 8.8-10.0 [facility] Comment on above: Performed By: #### Joseph AB18, LAB17, [id number] ####Lease Administration Supervisor: CHELSIE ISAACS ([phone])[facility] ([facility])[address] [place] [address] [place] Chloride [Moles/Vol] 108 mmol/L High 98-107 [facility] Comment on above: Performed By: #### L AB18, LAB17, [id number] ####Lease Administration Supervisor: CHELSIE ISAACS ([phone])[facility] ([facility])[address] [place] [address] CO2 [Moles/Vol] 21 mmol/L Low 23-31 [facility] Comment on above: Performed By: #### Joseph AB18, LAB17, [id number] ####Lease Administration Supervisor: CHELSIE ISAACS ([phone])[facility])[address] [place] [address] Creatinine [Mass/Vol] 0.80 mg/dL Normal 0.57-1.11 [facility] Comment on above: Performed By: #### L AB18, LAB17, [id number] ####Lease Administration Supervisor: CHELSIE ISAACS ([phone])[facility])[address] [place] [address] [place] GLOMERULAR FILTRATION RATE ML/MIN/1.73 SQ M.PREDICTED 75.5 mL/min/1.73m*2 Normal >60.0 [facility] Comment on above: Result Comment: Calc ulation based on the Chronic Kidney Disease Epidemiology Collaboration (CKD-EPI) equation refit without adjustment for race Performed By: #### L AB18, LAB17, [id number] ####Lease Administration Supervisor: CHELSIE ISAACS ([phone])[facility])[address] [place] [address] Glucose [Mass/Vol] 92 mg/dL Normal 82-115 [facility] Comment on above: Performed By: #### Joseph AB18, LAB17, [id number] ####Lease Administration Supervisor: CHELSIE ISAACS ([phone])[facility])[address] [place] [address] Potassium [Moles/Vol] 3.9 mmol/L Normal 3.5-5.1 [facility] Comment on above: Result Comment: [facility] potassium values may be up to 0.5 mmol/L lower than serum values. Performed By: #### L AB18, LAB17, [id number] ####Lease Administration Supervisor: CHELSIE ISAACS ([phone])[facility] ([facility])[address] [place] [address] Protein [Mass/Vol] 7.1 g/dL Normal 6.4-8.3 [facility] Comment on above: Performed By: #### L AB18, LAB17, [id number] ####Lease Administration Supervisor: CHELSIE ISAACS ([phone])[facility])[address] [place] [address] Sodium [Moles/Vol] 139 mmol/L Normal 136-145 [facility] Comment on above: Performed By: #### L AB18, LAB17, [id number] ####Lease Administration Supervisor: CHELSIE ISAACS ([phone])[facility] ([facility])[address] [place] [address] Urea nitrogen [Mass/Vol] 24 mg/dL High 9-23 [facility] Comment on above: Performed By: #### L AB18, LAB17, [id number] ####Lease Administration Supervisor: CHELSIE ISAACS ([phone])[facility] ([facility])[address] [place] [address] Consulton 01-12-2025 Consult Normal [facility] Consult Normal [facility] FIBRINOGENon 01-12-2025 FIBRINOGEN 239 mg/dL Normal 200-400 [facility] Comment on above: Order Comment: Recom mend 15 to 30 minutes post transfusion Performed By: #### L AB314, [id number] ####Lease Administration Supervisor: CHELSIE ISAACS ([phone])[facility])[address] [place] [address] FIBRINOGEN 148 mg/dL Low 200-400 [facility] Comment on above: Performed By: #### L [id number], [id number] ####Lease Administration Supervisor: CHELSIE ISAACS ([phone])[facility] ([facility])[address] [place] [address] FIBRINOGEN 165 mg/dL Low 200-400 [facility] Comment on above: Performed By: #### L AB314, [id number] ####Lease Administration Supervisor: CHELSIE ISAACS ([phone])[facility])[address] [place] [address] Fibrinogen Coag (PPP) [Mass/ Vol]on 01-12-2025 Interpretation and review of laboratory results Normal [facility] HEMOGLOBIN A1Con 01-12-2025 Glucose [Mass/Vol] 120 mg/dL Normal [facility] Comment on above: Result Comment: ORDE R COMMENTS:HbA1c values of 5.7-6.4 percent indicate an increased risk for developing diabetes mellitus. HbA1c values greater than or equal to 6.5 percent are diagnostic of diabetes mellitus. For diagnosis of diabetes in individuals without unequivocal hyperglycemia, results should be confirmed by repeat testing. Performed By: #### L AB90 ####Lease Administration Supervisor: CHELSIE ISAACS ([phone])[facility])[address] [place] [address] HEMOGLOBIN A1C 5.8 %HbA1C High <5.7 [facility] Comment on above: Result Comment: Norm al less than 5.7%Prediabetes 5.7% to 6.4%Diabetes 6.5% or higher--HgbA1C levels may not be accurate in patients who have renal disease, received recent blood transfusions, are anemic, or who have dyshemoglobinemia. Performed By: #### L AB90 ####Lease Administration Supervisor: CHELSIE ISAACS ([phone])[facility])[address] [place] [address] HEMOGLOBIN AND HEMATOCRIT, B LOODon 01-12-2025 Hematocrit (Bld) [Volume fraction] 29.2 % Low 35.0-47.0 [facility] Comment on above: Order Comment: Recom mend 1 hour post transfusion Performed By: #### L AB753 ####Lease Administration Supervisor: CHELSIE ISAACS ([phone])[facility])[address] [place] [address] Hemoglobin (Bld) [Mass/Vol] 9.7 g/dL Low 11.7-16.0 [facility] Comment on above: Order Comment: Recom mend 1 hour post transfusion Performed By: #### L AB753 ####Lease Administration Supervisor: CHELSIE ISAACS ([phone])[facility])[address] [place] [address] HEPATIC FUNCTION PANELon Albumin [Mass/Vol] 3.4 g/dL Normal 3.4-4.8 [facility] Comment on above: Performed By: #### L AB103, LAB20, LAB15 ####Lease Administration Supervisor: CHELSIE ISAACS ([phone])[address] ALP [Catalytic activity/Vol] 37 U/L Low 40-150 [facility] Comment on above: Performed By: #### L AB103, LAB20, LAB15 ####Lease Administration Supervisor: CHELSIE ISAACS ([phone])[facility])[address] [place] [address] ALT [Catalytic activity/Vol] 52 U/L High <30 [facility] Comment on above: Performed By: #### L AB103, LAB20, LAB15 ####Lease Administration Supervisor: CHELSIE ISAACS ([phone])[facility])[address] [place] [address] AST [Catalytic activity/Vol] 83 U/L High <34 [facility] Comment on above: Performed By: #### L AB103, LAB20, LAB15 ####Lease Administration Supervisor: CHELSIE ISAACS ([phone])[facility])[address] [place] [address] Bilirubin [Mass/Vol] 1.0 mg/dL Normal <1.2 [facility] Comment on above: Performed By: #### L AB103, LAB20, LAB15 ####Lease Administration Supervisor: CHELSIE ISAACS ([phone])[facility])[address] [place] [address] Bilirubin.indirect [Mass/Vol] 0.6 mg/dL High <0.5 [facility] Comment on above: Performed By: #### L AB103, LAB20, LAB15 ####Lease Administration Supervisor: CHELSIE ISAACS ([phone])[facility])[address] [place] [address] Protein [Mass/Vol] 5.0 g/dL Low 6.4-8.3 [facility] Comment on above: Result Comment: Seru m protein values are higher than plasma values. Samples from recumbent persons are lower by up to 0.5 g/dL as compared to ambulatory persons. After 60 years values are lower by up to 0.2 g/dL. Performed By: #### L AB103, LAB20, LAB15 ####Lease Administration Supervisor: CHELSIE ISAACS ([phone])[facility])[address] [place] [address] Hemoglobin (Bld) [Mass/Vol]o n 01-12-2025 Hematocrit (Bld) [Volume fraction] 29.2 % Low 35.0 - 47.0 % [facility] Interpretation and review of laboratory results Abnormal [facility] LIPID PANELon 01-12-2025 Cholesterol [Mass/Vol] 174 mg/dL Normal <200 [facility] Comment on above: Performed By: #### Joseph AB18, LAB17, [id number] ####Lease Administration Supervisor: CHELSIE ISAACS ([phone])[facility])[address] [place] [address] Cholesterol in HDL [Mass/Vol] 49 mg/dL Low >=60 [facility] Comment on above: Performed By: #### Joseph AB18, LAB17, [id number] ####Lease Administration Supervisor: CHELSIE ISAACS ([phone])[facility] ([facility])[address] [place] [address] Cholesterol.total/Choles terol in HDL [Mass ratio] 4 {ratio} Normal [facility] Comment on above: Result Comment: Ref Range:< 3 Low Risk for CHD3-6 Mod Risk for CHD> 6 High Risk for CHD Performed By: #### Joseph AB18, LAB17, [id number] ####Lease Administration Supervisor: CHELSIE ISAACS ([phone])[facility] ([facility])[address] [place] [address] LOW DENSITY LIPOPROTEIN 92 mg/dL Normal 0-<100 [facility] Comment on above: Performed By: #### L AB18, LAB17, [id number] ####Lease Administration Supervisor: CHELSIE ISAACS ([phone])[facility])[address] [place] [address] NON-HDL CHOLESTEROL, CALCULATED 125 Normal <130 [facility] Comment on above: Performed By: #### L AB18, LAB17, [id number] ####Lease Administration Supervisor: CHELSIE ISAACS ([phone])[facility] ([facility])[address] [place] [address] [place] Triglyceride [Mass/Vol] 164 mg/dL High <150 [facility] Comment on above: Performed By: #### L AB18, LAB17, [id number] ####Lease Administration Supervisor: CHELSIE ISAACS ([phone])[facility] ([facility])[address] [place] [address] VERY LOW DENSITY LIPOPROTEIN, CALCULATED 33 mg/dL High <=30 [facility] Comment on above: Performed By: #### L AB18, LAB17, [id number] ####Lease Administration Supervisor: CHELSIE ISAACS ([phone])[facility] ([facility])[address] [place] [address] Laboratory - Chemistry and C hemistry - challengeon 01-12-2025 Glucose [Mass/Vol] 123 mg/dL High 70 - 100 mg/dL [facility] Glucose [Mass/Vol] 152 mg/dL High 70 - 100 mg/dL [facility] Glucose [Mass/Vol] 146 mg/dL High 70 - 100 mg/dL [facility] Glucose [Mass/Vol] 160 mg/dL High 70 - 100 mg/dL [facility] Glucose [Mass/Vol] 166 mg/dL High 70 - 100 mg/dL [facility] Glucose [Mass/Vol] 147 mg/dL High 70 - 100 mg/dL [facility] Glucose [Mass/Vol] 125 mg/dL High 70 - 100 mg/dL [facility] Laboratory - Chemistry and C hemistry - challengeOrdered By: Salud Grant on 01-12-2025 Base excess Calc (Bld) [Moles/Vol] -5.8000 mmol/L Low -3.0 - 3.0 mmol/L [facility] CO2 (Bld) [Partial pressure] 36.2 mm[Hg] - PINF [facility] CO2 [Moles/Vol] 20.4 mmol/L Low 23.0 - 27.0 mmol/L [facility] HCO3 (Bld) [Moles/Vol] 19.3 mmol/L Low 21.0 - 25.0 mmol/L [facility] Oxygen (Bld) [Partial pressure] 132.9 mm[Hg] High [facility] pH (Bld) 7.345 [pH] Low 7.350 - 7.450 [facility] Laboratory - Chemistry and C hemistry - challengeOrdered By: Samira Morel on 01-12-2025 CO2 (Bld) [Partial pressure] 39.5 mm[Hg] - PINF [facility] Laboratory - Coagulationon 0 01-12-2025 aPTT Coag (PPP) [Time] 60.3 s High 20.0 - 30.5 s [facility] Fibrinogen Coag (PPP) [Mass/Vol] 239 mg/dL 200 - 400 mg/dL [facility] INR Coag (PPP) [Relative time] 1.2 {INR} High 0.9 - 1.1 [facility] PT Coag (Bld) [Time] 13 s High 9.0 - 12.0 s [facility] Laboratory - Hematology and Cell countson 01-12-2025 Hemoglobin (Bld) [Mass/Vol] 9.7 g/dL Low 11.7 - 16.0 g/dL [facility] Laboratory - Hematology and Cell countsOrdered By: Salud Grant on 01-12-2025 Hemoglobin (Bld) [Mass/Vol] 7.8 g/dL 7.0 g/dl [facility] MAGNESIUMon 01-12-2025 Magnesium [Mass/Vol] 3.0 mg/dL High 1.6-2.6 [facility] Comment on above: Result Comment: SHARA Hand COMMENTS:Higher values can be expected in females during menses. Performed By: #### L AB103, LAB20, LAB15 ####Lease Administration Supervisor: CHELSIE ISAACS ([phone])[address] Magnesium [Mass/Vol] 4.5 mg/dL High 1.6-2.6 [facility] Comment on above: Result Comment: SHARA Hand COMMENTS:Higher values can be expected in females during menses. Performed By: #### L AB103, [id number], LAB15 ####Lease Administration Supervisor: CHELSIE ISAACS ([phone])[facility])[address] [place] [address] No Panel Informationon 01-12 Interpretation and review of laboratory results Abnormal [facility] Interpretation and review of laboratory results Abnormal [facility] [place] Interpretation and review of laboratory results Abnormal [facility] [place] Interpretation and review of laboratory results Abnormal [facility] [place] Interpretation and review of laboratory results Abnormal [facility] [place] Interpretation and review of laboratory results Abnormal [facility] Blood Expiration Date S [facility] Dispense Status Transfused [facility] Product Blood Type 5100 [facility] PRODUCT CODE [id number] [facility] A[facility] O [facility] Number [id number] [facility] RH Positive [facility] Unit Volume 80 ml [facility] Interpretation and review of laboratory results Abnormal [facility] [place] Blood Expiration Date S [facility] Dispense Status Transfused [facility] Blood Type 6200 [facility] PRODUCT CODE [id number] [facility] ABO A [facility] Unit Number [id number] [facility] RH Positive [facility] Unit Volume 214 ml [facility] Blood Expiration Date S [facility] Dispense Status Transfused [facility] Blood Type 7300 [facility] PRODUCT CODE [id number] [facility] ABO B [facility] Unit Number [id number] [facility] RH Positive [facility] Unit Volume 300 mL [facility] Interpretation and review of laboratory results Abnormal [facility] [place] Blood Expiration Date [id number] S [facility] Crossmatch interpretation COMP [facility] Dispense Status Released from Crossmatch [facility] Dispense Status Transfused [facility] Blood Type 600 [facility] PRODUCT CODE [id number] [facility] Unit ABO A [facility] Unit Number [id number] [facility] Unit Number [id number] [facility] RH Negative [facility] Unit Volume 300 mL [facility] No Panel InformationOrdered By: Salud Grant on 01-12-2025 Amount Of Oxygen 4 [facility] Interpretation and review of laboratory results Abnormal [facility] Source Of Oxygen Nasal Cannula (LPM) [facility] Nursing Noteon 01-12-2025 Nursing Note 0701- pt taken to OR. Normal [facility] Nursing Note Normal [facility] Op Noteon 01-12-2025 Op Note Normal [facility] PHOSPHORUSon 01-12-2025 Phosphate [Mass/Vol] 3.4 mg/dL Normal 2.3-4.7 [facility] Comment on above: Performed By: #### L AB103, ARV563, LAB15 ####Lease Administration Supervisor: CHELSIE ISAACS ([phone])[facility])[address] [place] [address] Phosphate [Mass/Vol] 4.8 mg/dL High 2.3-4.7 [facility] Comment on above: Performed By: #### L AB18, LAB17, [id number] ####Lease Administration Supervisor: CHELSIE ISAACS ([phone])[facility])[address] [place] [address] PROTHROMBIN TIMEon 5 INR Coag (PPP) [Relative time] 1.1 {INR} Normal 0.9-1.1 [facility] Comment on above: Result Comment: Sridhar mmended Anticoagulant Therapy: SEE BELOW----- INR of 2.0 - 3.0 : - Prophylaxis of Venous Thrombosis (high-risk surgery) - Treatment of Venous Thrombosis - Treatment of Pulmonary Embolism (Includes tissue heart valves, Acute Myocardial Infarction to prevent systemic embolism, Valvular Heart Disease, and Atrial Fibrillation)----- INR of 2.5 - 3.5 : - Mechanical Prosthetic Valves (high risk) - If oral anticoagulant therapy is used to prevent Myocardial Infarction Performed By: #### Joseph AB325, [id number] ####Lease Administration Supervisor: CHELSIE ISAACS ([phone])[facility] ([facility])[address] [place] [address] PT Coag (PPP) [Time] 11.2 s Normal 9.0-12.0 [facility] Comment on above: Performed By: #### L AB325, [id number] ####Lease Administration Supervisor: CEHLSIE ISAACS ([phone])[facility] ([facility])[address] [place] [address] PROTIME AND APTTon 06-02-202 5 aPTT Coag (Bld) [Time] 60.3 s High 20.0-30.5 [facility] Comment on above: Order Comment: Recom mend 15 to 30 minutes post transfusion Performed By: #### L AB314, [id number] ####Lease Administration Supervisor: CHELSIE ISAACS ([phone])[facility])[address] [place] [address] [place] INR Coag (PPP) [Relative time] 1.2 {INR} High 0.9-1.1 [facility] Comment on above: Order Comment: Recom mend 15 to 30 minutes post transfusion Result Comment: Sridhar mmended Anticoagulant Therapy: SEE BELOW----- INR of 2.0 - 3.0 : - Prophylaxis of Venous Thrombosis (high-risk surgery) - Treatment of Venous Thrombosis - Treatment of Pulmonary Embolism (Includes tissue heart valves, Acute Myocardial Infarction to prevent systemic embolism, Valvular Heart Disease, and Atrial Fibrillation)----- INR of 2.5 - 3.5 : - Mechanical Prosthetic Valves (high risk) - If oral anticoagulant therapy is used to prevent Myocardial Infarction Performed By: #### Joseph AB314, [id number] ####Lease Administration Supervisor: CHELSIE ISAACS ([phone])[facility])[address] [place] [address] [place] PT Coag (PPP) [Time] 13.0 s High 9.0-12.0 [facility] Comment on above: Order Comment: Recom mend 15 to 30 minutes post transfusion Performed By: #### L AB314, [id number] ####Lease Administration Supervisor: CHELSIE ISAACS ([phone])[facility] ([facility])[address] [place] [address] [place] aPTT Coag (Bld) [Time] 37.2 s High 20.0-30.5 [facility] Comment on above: Performed By: #### L [id number], [id number] ####Lease Administration Supervisor: CHELSIE ISAACS ([phone])[facility])[address] [place] [address] [place] INR Coag (PPP) [Relative time] 1.3 {INR} High 0.9-1.1 [facility] Comment on above: Result Comment: Sridhar mmended Anticoagulant Therapy: SEE BELOW----- INR of 2.0 - 3.0 : - Prophylaxis of Venous Thrombosis (high-risk surgery) - Treatment of Venous Thrombosis - Treatment of Pulmonary Embolism (Includes tissue heart valves, Acute Myocardial Infarction to prevent systemic embolism, Valvular Heart Disease, and Atrial Fibrillation)----- INR of 2.5 - 3.5 : - Mechanical Prosthetic Valves (high risk) - If oral anticoagulant therapy is used to prevent Myocardial Infarction Performed By: #### Joseph [id number], [id number] ####Lease Administration Supervisor: CHELSIE ISAACS ([phone])[address] PT Coag (PPP) [Time] 13.8 s High 9.0-12.0 [facility] Comment on above: Performed By: #### Joseph [id number], [id number] ####Lease Administration Supervisor: CHELSIE ISAACS ([phone])[facility] ([facility])[address] [place] [address] aPTT Coag (Bld) [Time] 30.8 s High 20.0-30.5 [facility] Comment on above: Performed By: #### Joseph AB314, [id number] ####Lease Administration Supervisor: CHELSIE ISAACS ([phone])[address] INR Coag (PPP) [Relative time] 1.7 {INR} High 0.9-1.1 [facility] Comment on above: Result Comment: Sridhar mmended Anticoagulant Therapy: SEE BELOW----- INR of 2.0 - 3.0 : - Prophylaxis of Venous Thrombosis (high-risk surgery) - Treatment of Venous Thrombosis - Treatment of Pulmonary Embolism (Includes tissue heart valves, Acute Myocardial Infarction to prevent systemic embolism, Valvular Heart Disease, and Atrial Fibrillation)----- INR of 2.5 - 3.5 : - Mechanical Prosthetic Valves (high risk) - If oral anticoagulant therapy is used to prevent Myocardial Infarction Performed By: #### Joseph AB314, [id number] ####Lease Administration Supervisor: CHELSIE ISAACS ([phone])[facility] ([facility])[address] [place] [address] PT Coag (PPP) [Time] 17.4 s High 9.0-12.0 [facility] Comment on above: Performed By: #### L AB314, [id number] ####Lease Administration Supervisor: CHELSIE ISAACS ([phone])[facility] [place] [address] Progress Noteon 01-12-2025 [facility] Normal [facility] XR CHEST 1 VIEWon 01-12-2025 XR CHEST 1 VIEW Normal [facility] XR CHEST 1 VIEW Normal [facility] XR Chest Single viewon 01-12 [facility] Radiology Study observation (narrative) [facility] XR Chest Single viewOrdered By: Micki Coker on 01-12-2025 [facility] Work Phone: 30on 01-11-2025 30 Normal [facility] 30 Normal [facility] APTTon 01-11-2025 aPTT Coag (Bld) [Time] 91.1 s High 20.0-30.5 [facility] Comment on above: Result Comment: VIJAYE R COMMENTS:NOTE: The therapeutic time for Heparin anticoagulation, based on Xa activity inhibition, is an APTT of 46-80 seconds. Performed By: #### L AB325 ####Lease Administration Supervisor: CHELSIE ISAACS ([phone])[facility] [place] [address] aPTT Coag (Bld) [Time] 49.5 s High 20.0-30.5 [facility] Comment on above: Result Comment: SHARA Hand COMMENTS:NOTE: The therapeutic time for Heparin anticoagulation, based on Xa activity inhibition, is an APTT of 46-80 seconds. Performed By: #### L AB325 ####Lease Administration Supervisor: CHELSIE ISAACS ([phone])[facility] [place] [address] aPTT Coag (Bld) [Time] 57.9 s High 20.0-30.5 [facility] Comment on above: Result Comment: SHARA Hand COMMENTS:NOTE: The therapeutic time for Heparin anticoagulation, based on Xa activity inhibition, is an APTT of 46-80 seconds. Performed By: #### L AB325 ####Lease Administration Supervisor: CHELSIE ISAACS ([phone])[facility] ([facility])[address] [place] [address] BLOOD TYPE AND SCREEN GELon 01-11-2025 ABO GROUPING A Normal [facility] Comment on above: Order Comment: Speci men is valid for 3 days - nurse to verify valid specimen Performed By: #### L AB276 ####Lease Administration Supervisor: CHELSIE ISAACS ([phone])[facility] BLOOD BANK ([facility])[address] [place] [address] RH TYPE IN BLOOD Positive Normal [facility] Comment on above: Order Comment: Speci men is valid for 3 days - nurse to verify valid specimen Performed By: #### L AB276 ####Lease Administration Supervisor: CHELSIE ISAACS ([phone])[facility] BLOOD [facility] ([facility])[address] [place] [address] Basic Metabolic Profile (BMP )on 01-11-2025 BUN Normal 4-19 [facility] Comment on above: Result Comment: Canc elled via OM: Order cancelled - Patient discharged Performed By: #### L 500.2500 ####[facility] [address] [facility] [id number] Result Comment: Canc elled via OM: MD Ordered Performed By: #### L 499.0043 #### [facility] [address] [place], [place], [id number] BUN/CRE Normal 10-20 [facility] Comment on above: Result Comment: Canc elled via OM: Order cancelled - Patient discharged Performed By: #### L 500.2500 ####[facility] [address] [place], [address] Result Comment: Canc elled via OM: MD Ordered Performed By: #### L 499.0043 #### [facility] [address] [place], [address] Calcium Normal 7.6-11.0 [facility] Comment on above: Result Comment: Canc elled via OM: Order cancelled - Patient discharged Performed By: #### L 500.2500 ####[facility] [address] [place], [address] Result Comment: Canc elled via OM: MD Ordered Performed By: #### L 499.0043 #### [facility] [address] [place], [address] CL Normal 98-108 [facility] Comment on above: Result Comment: Canc elled via OM: Order cancelled - Patient discharged Performed By: #### L 500.2500 ####[facility] [address] [place], [address] Result Comment: Canc elled via OM: MD Ordered Performed By: #### L 499.0043 #### [facility] [address] [place], [address] CO2 Normal 21.0-32.0 [facility] Comment on above: Result Comment: Canc elled via OM: Order cancelled - Patient discharged Performed By: #### L 500.2500 ####[facility] [address] [place], [address] Result Comment: Canc elled via OM: MD Ordered Performed By: #### L 499.0043 #### [facility] [address] [place], [address] CREAT,SERUM Normal 0.70-1.20 [facility] Comment on above: Result Comment: Canc elled via OM: Order cancelled - Patient discharged Performed By: #### L 500.2500 ####[facility] [address] [place], [address] Result Comment: Canc elled via OM: MD Ordered Performed By: #### L 499.0043 #### [facility] [address] [place], [address] eGFR Normal >60 [facility] Comment on above: Result Comment: Canc elled via OM: Order cancelled - Patient discharged Performed By: #### L 500.2500 ####[facility] [address] [place], [address] Result Comment: Canc elled via OM: MD Ordered Performed By: #### L 499.0043 #### [facility] [address] [place], [address] GAP Normal 5-15 [facility] Comment on above: Result Comment: Canc elled via OM: Order cancelled - Patient discharged Performed By: #### L 500.2500 ####[facility] [address] [place], [address] Result Comment: Canc elled via OM: MD Ordered Performed By: #### L 499.0043 #### [facility] [address] [place], [address] GLU Normal 70-99 [facility] Comment on above: Result Comment: Canc elled via OM: Order cancelled - Patient discharged Performed By: #### L 500.2500 ####[facility] [address] [place], [address] Result Comment: Canc elled via OM: MD Ordered Performed By: #### L 499.0043 #### [facility] [address] [place], [address] Potassium Normal 3.3-5.1 [facility] Comment on above: Result Comment: Canc elled via OM: Order cancelled - Patient discharged Performed By: #### L 500.2500 ####[facility] [address] [place], [place], [address] Result Comment: Canc elled via OM: MD Ordered Performed By: #### L 499.0043 #### [facility] [address] [place], [place], [address] Basic Metabolic Profile (BMP) Normal 133-145 [facility] Comment on above: Result Comment: Canc elled via OM: Order cancelled - Patient discharged Performed By: #### L 500.2500 ####[facility] [address] [place], [place], [id number] Result Comment: Canc elled via OM: MD Ordered Performed By: #### L 499.0043 #### [facility] [address] [place], [place], [id number] CBC (HEMOGRAM)on 01-11-2025 Erythrocyte distribution width (RBC) [Ratio] 14.1 % Normal 11.5-15.0 [facility] Comment on above: Performed By: #### L AB294 ####Lease Administration Supervisor: CHELSIE ISAACS ([phone])[address] Hematocrit (Bld) [Volume fraction] 38.3 % Normal 35.0-47.0 [facility] Comment on above: Performed By: #### L AB294 ####Lease Administration Supervisor: CHELSIE ISAACS ([phone])[facility])[address] [place] [address] Hemoglobin (Bld) [Mass/Vol] 12.6 g/dL Normal 11.7-16.0 [facility] Comment on above: Performed By: #### L AB294 ####Lease Administration Supervisor: CHELSIE ISAACS ([phone])[facility])[address] [place] [address] MCH (RBC) [Entitic mass] 29.1 pg Normal 26.0-34.0 [facility] Comment on above: Performed By: #### L AB294 ####Lease Administration Supervisor: CHELSIE ISAACS ([phone])[facility] ([facility])[address] [place] [address] MCHC 32.9 % Normal 30.5-36.0 [facility] Comment on above: Performed By: #### L AB294 ####Lease Administration Supervisor: CHELSIE ISAACS ([phone])[facility] ([facility])[address] [place] [address] MCV (RBC) [Entitic vol] 88.5 fL Normal 77.0-99.0 [facility] Comment on above: Performed By: #### L AB294 ####Lease Administration Supervisor: CHELSIE ISAACS ([phone])[facility])[address] [place] [address] Platelet mean volume (Bld) [Entitic vol] 9.9 fL Normal 9.0-12.7 [facility] Comment on above: Performed By: #### L AB294 ####Lease Administration Supervisor: CHELSIE ISAACS ([phone])[facility] ([facility])[address] [place] [address] Platelets (Bld) [#/Vol] 213 10*3/uL Normal 140-440 [facility] Comment on above: Performed By: #### L AB294 ####Lease Administration Supervisor: CHELSIE ISAACS ([phone])[facility])[address] [place] [address] RBC (Bld) [#/Vol] 4.33 10*6/uL Normal 3.80-5.20 [facility] Comment on above: Performed By: #### L AB294 ####Lease Administration Supervisor: CHELSIE ISAACS ([phone])[facility])[address] [place] [address] WBC (Bld) [#/Vol] 6.0 10*3/uL Normal 3.6-10.7 [facility] Comment on above: Performed By: #### L AB294 ####Lease Administration Supervisor: CHELSIE ISAACS ([phone])[facility] ([facility])[address] [place] [address] CBC-Complete Blood Cnt No Di ffon 01-11-2025 HCT Normal 37-47 [facility] Comment on above: Result Comment: Canc elled via OM: Order cancelled - Patient discharged Performed By: #### L 100.0500 ####[facility] [address] [place], [address] HGB Normal 12.0-15.0 [facility] Comment on above: Result Comment: Canc elled via OM: Order cancelled - Patient discharged Performed By: #### L 100.0500 ####[facility] [address] [place], [address] MCH Normal 27.0-32.0 [facility] Comment on above: Result Comment: Canc elled via OM: Order cancelled - Patient discharged Performed By: #### L 100.0500 ####[facility] [address] [place], [address] MCHC Normal 32-36 [facility] Comment on above: Result Comment: Canc elled via OM: Order cancelled - Patient discharged Performed By: #### L 100.0500 ####[facility] [address] [place], [address] MCV Normal 81-99 [facility] Comment on above: Result Comment: Canc elled via OM: Order cancelled - Patient discharged Performed By: #### L 100.0500 ####[facility] [address] [place], [address] PLT Normal 150-450 [facility] Comment on above: Result Comment: Canc elled via OM: Order cancelled - Patient discharged Performed By: #### L 100.0500 ####[facility] [address] [place], [address] RBC Normal 4.2-5.4 [facility] Comment on above: Result Comment: Canc elled via OM: Order cancelled - Patient discharged Performed By: #### L 100.0500 ####[facility] [address] [place], [address] RDW CV Normal 11.6-14.6 [facility] Comment on above: Result Comment: Canc elled via OM: Order cancelled - Patient discharged Performed By: #### L 100.0500 ####[facility] [address] [place], [address] RDW SD Normal 35.1-43.9 [facility] Comment on above: Result Comment: Canc elled via OM: Order cancelled - Patient discharged Performed By: #### L 100.0500 ####[facility] [address] [place], [address] WBC Normal 4.4-11.0 [facility] Comment on above: Result Comment: Canc elled via OM: Order cancelled - Patient discharged Performed By: #### L 100.0500 ####[facility] [address] [place], [address] COMPREHENSIVE METABOLIC PANE [facility] 01-11-2025 Albumin [Mass/Vol] 3.3 g/dL Low 3.4-4.8 [facility] Comment on above: Performed By: #### L AB17 ####Lease Administration Supervisor: CHELSIE ISAACS ([phone])[address] ALP [Catalytic activity/Vol] 82 U/L Normal 40-150 [facility] Comment on above: Performed By: #### L AB17 ####Lease Administration Supervisor: CHELSIE ISAACS ([phone])[id number] [place] [address] ALT [Catalytic activity/Vol] 29 U/L Normal <30 [facility] Comment on above: Performed By: #### L AB17 ####Lease Administration Supervisor: CHELSIE ISAACS ([phone])[facility] [place] [address] Anion gap [Moles/Vol] 12 mmol/L Normal 3-13 [facility] Comment on above: Performed By: #### L AB17 ####Lease Administration Supervisor: CHELSIE ISAACS ([phone])[facility] ([facility])[address] [place] [address] AST [Catalytic activity/Vol] 34 U/L High <34 [facility] Comment on above: Performed By: #### L AB17 ####Lease Administration Supervisor: CHELSIE ISAACS ([phone])[facility] ([facility])[address] [place] [address] Bilirubin [Mass/Vol] 0.3 mg/dL Normal <1.2 [facility] Comment on above: Performed By: #### L AB17 ####Lease Administration Supervisor: CHELSIE ISAACS ([phone])[facility] ([facility])[address] [place] [address] Calcium [Mass/Vol] 8.9 mg/dL Normal 8.8-10.0 [facility] Comment on above: Performed By: #### L AB17 ####Lease Administration Supervisor: CHELSIE ISAACS ([phone])[facility] ([facility])[address] [place] [address] Chloride [Moles/Vol] 108 mmol/L High 98-107 [facility] Comment on above: Performed By: #### L AB17 ####Lease Administration Supervisor: CHELSIE ISAACS ([phone])[facility] ([facility])[address] [place] [address] [place] CO2 [Moles/Vol] 19 mmol/L Low 23-31 [facility] Comment on above: Performed By: #### L AB17 ####Lease Administration Supervisor: CHELSIE ISAACS ([phone])[facility] ([facility])[address] [place] [address] Creatinine [Mass/Vol] 0.85 mg/dL Normal 0.57-1.11 [facility] Comment on above: Performed By: #### L AB17 ####Lease Administration Supervisor: CHELSIE ISAACS ([phone])[facility])[address] [place] [address] [place] GLOMERULAR FILTRATION RATE ML/MIN/1.73 SQ M.PREDICTED 70.2 mL/min/1.73m*2 Normal >60.0 [facility] Comment on above: Result Comment: Calc ulation based on the Chronic Kidney Disease Epidemiology Collaboration (CKD-EPI) equation refit without adjustment for race Performed By: #### L AB17 ####Lease Administration Supervisor: CHELSIE ISAACS ([phone])[facility] ([facility])[address] [place] [address] [place] Glucose [Mass/Vol] 93 mg/dL Normal 82-115 [facility] Comment on above: Performed By: #### L AB17 ####Lease Administration Supervisor: CHELSIE ISAACS ([phone])[facility])[address] [place] [address] [place] Potassium [Moles/Vol] 4.0 mmol/L Normal 3.5-5.1 [facility] Comment on above: Result Comment: [facility] potassium values may be up to 0.5 mmol/L lower than serum values. Performed By: #### L AB17 ####Lease Administration Supervisor: CHELSIE ISAACS ([phone])[facility] ([facility])[address] [place] [address] [place] Protein [Mass/Vol] 7.0 g/dL Normal 6.4-8.3 [facility] Comment on above: Performed By: #### L AB17 ####Lease Administration Supervisor: CHELSIE ISAACS ([phone])[facility] ([facility])[address] [place] [address] [place] Sodium [Moles/Vol] 139 mmol/L Normal 136-145 [facility] Comment on above: Performed By: #### L AB17 ####Lease Administration Supervisor: CHELSIE ISAACS ([phone])[facility])[address] [place] [address] [place] Urea nitrogen [Mass/Vol] 26 mg/dL High 9-23 [facility] Comment on above: Performed By: #### L AB17 ####Lease Administration Supervisor: CHELSIE ISAACS ([phone])[facility])[address] [place] [address] Progress Noteon 01-11-2025 Progress Note Normal [facility] Progress Note Nutrition rescreen completed. Chart reviewed. Patient to be monitored and followed by the diet wellfield technician. Tamara Blackburn, DT Normal [facility] APTTon 01-10-2025 aPTT Coag (Bld) [Time] 59.0 s High 20.0-30.5 [facility] Comment on above: Result Comment: VIJAYE R COMMENTS:NOTE: The therapeutic time for Heparin anticoagulation, based on Xa activity inhibition, is an APTT of 46-80 seconds. Performed By: #### L AB325 ####Lease Administration Supervisor: CHELSIE ISAACS ([phone])[facility])[address] [place] [address] aPTT Coag (Bld) [Time] 48.5 s High 20.0-30.5 [facility] Comment on above: Result Comment: SHARA Hand COMMENTS:NOTE: The therapeutic time for Heparin anticoagulation, based on Xa activity inhibition, is an APTT of 46-80 seconds. Performed By: #### L AB325 ####Lease Administration Supervisor: CHELSIE ISAACS ([phone])[facility])[address] [place] [address] aPTT Coag (Bld) [Time] 51.5 s High 20.0-30.5 [facility] Comment on above: Result Comment: SHARA Hand COMMENTS:NOTE: The therapeutic time for Heparin anticoagulation, based on Xa activity inhibition, is an APTT of 46-80 seconds. Performed By: #### L AB325 ####Lease Administration Supervisor: CHELSIE ISAACS ([phone])[facility])[address] [place] [address] Basic Metabolic Profile (BMP )on 01-10-2025 BUN Normal 4-19 [facility] Comment on above: Result Comment: Kar molina via OM: Ordered Performed By: #### L 300.4310 #### [facility] [address] [place], [address] BUN/CRE Normal 10-20 [facility] Comment on above: Result Comment: Canc elled via OM: MD Ordered Performed By: #### L 300.4310 #### [facility] [address] [place], [address] Calcium Normal 7.6-11.0 [facility] Comment on above: Result Comment: Canc elled via OM: MD Ordered Performed By: #### L 300.4310 #### [facility] [address] [place], [address] CL Normal 98-108 [facility] Comment on above: Result Comment: Canc elled via OM: MD Ordered Performed By: #### L 300.4310 #### [facility] [address] [place], [address] CO2 Normal 21.0-32.0 [facility] Comment on above: Result Comment: Canc elled via OM: MD Ordered Performed By: #### L 300.4310 #### [facility] [address] [place], [address] CREAT,SERUM Normal 0.70-1.20 [facility] Comment on above: Result Comment: Canc elled via OM: MD Ordered Performed By: #### L 300.4310 #### [facility] [address] [place], [address] eGFR Normal >60 [facility] Comment on above: Result Comment: Canc elled via OM: MD Ordered Performed By: #### L 300.4310 #### [facility] [address] [place], [address] GAP Normal 5-15 [facility] Comment on above: Result Comment: Canc elled via OM: MD Ordered Performed By: #### L 300.4310 #### [facility] [address] [place], [address] GLU Normal 70-99 [facility] Comment on above: Result Comment: Canc elled via OM: MD Ordered Performed By: #### L 300.4310 #### [facility] [address] [place], [address] Potassium Normal 3.3-5.1 [facility] Comment on above: Result Comment: Canc elled via OM: MD Ordered Performed By: #### L 300.4310 #### [facility] [address] [place], [address] Basic Metabolic Profile (BMP) Normal 133-145 [facility] Comment on above: Result Comment: Canc elled via OM: MD Ordered Performed By: #### L 300.4310 #### [facility] [address] [place], [address] CBC (HEMOGRAM)on 01-10-2025 Erythrocyte distribution width (RBC) [Ratio] 14.2 % Normal 11.5-15.0 [facility] Comment on above: Performed By: #### L AB294 ####Lease Administration Supervisor: CHELSIE ISAACS ([phone])[address] Hematocrit (Bld) [Volume fraction] 39.8 % Normal 35.0-47.0 [facility] Comment on above: Performed By: #### L AB294 ####Lease Administration Supervisor: CHELSIE ISAACS ([phone])[facility] ([facility])[address] [place] [address] Hemoglobin (Bld) [Mass/Vol] 12.7 g/dL Normal 11.7-16.0 [facility] Comment on above: Performed By: #### L AB294 ####Lease Administration Supervisor: CHELSIE ISAACS ([phone])[facility])[address] [place] [address] MCH (RBC) [Entitic mass] 28.3 pg Normal 26.0-34.0 [facility] Comment on above: Performed By: #### L AB294 ####Lease Administration Supervisor: CHELSIE ISAACS ([phone])[facility])[address] [place] [address] MCHC 31.9 % Normal 30.5-36.0 [facility] Comment on above: Performed By: #### L AB294 ####Lease Administration Supervisor: CHELSIE ISAACS ([phone])[facility])[address] [place] [address] MCV (RBC) [Entitic vol] 88.8 fL Normal 77.0-99.0 [facility] Comment on above: Performed By: #### L AB294 ####Lease Administration Supervisor: CHELSIE ISAACS ([phone])[facility])[address] [place] [address] Platelet mean volume (Bld) [Entitic vol] 9.6 fL Normal 9.0-12.7 [facility] Comment on above: Performed By: #### L AB294 ####Lease Administration Supervisor: CHELSIE ISAACS ([phone])[facility])[address] [place] [address] Platelets (Bld) [#/Vol] 228 10*3/uL Normal 140-440 [facility] Comment on above: Performed By: #### L AB294 ####Lease Administration Supervisor: CHELSIE ISAACS ([phone])[facility])[address] [place] [address] RBC (Bld) [#/Vol] 4.48 10*6/uL Normal 3.80-5.20 [facility] Comment on above: Performed By: #### L AB294 ####Lease Administration Supervisor: CHELSIE ISAACS ([phone])[facility])[address] [place] [address] WBC (Bld) [#/Vol] 5.7 10*3/uL Normal 3.6-10.7 [facility] Comment on above: Performed By: #### L AB294 ####Lease Administration Supervisor: CHELSIE ISAACS ([phone])[facility] ([facility])[address] [place] [address] COMPREHENSIVE METABOLIC PANE Lino 01-10-2025 Albumin [Mass/Vol] 3.3 g/dL Low 3.4-4.8 [facility] Comment on above: Performed By: #### L AB17 ####Lease Administration Supervisor: CHELSIE ISAACS ([phone])[facility] [place] [address] ALP [Catalytic activity/Vol] 83 U/L Normal 40-150 [facility] Comment on above: Performed By: #### L AB17 ####Lease Administration Supervisor: CHELSIE ISAACS ([phone])[facility] ([facility])[address] [place] [address] ALT [Catalytic activity/Vol] 24 U/L Normal <30 [facility] Comment on above: Performed By: #### L AB17 ####Lease Administration Supervisor: CHELSIE ISAACS ([phone])[facility])[address] [place] [address] Anion gap [Moles/Vol] 9 mmol/L Normal 3-13 [facility] Comment on above: Performed By: #### L AB17 ####Lease Administration Supervisor: CHELSIE ISAACS ([phone])[facility] ([facility])[address] [place] [address] AST [Catalytic activity/Vol] 29 U/L Normal <34 [facility] Comment on above: Performed By: #### L AB17 ####Lease Administration Supervisor: CHELSIE ISAACS ([phone])[facility] ([facility])[address] [place] [address] [place] Bilirubin [Mass/Vol] 0.5 mg/dL Normal <1.2 [facility] Comment on above: Performed By: #### L AB17 ####Lease Administration Supervisor: CHELSIE ISAACS ([phone])[facility] ([facility])[address] [place] [address] Calcium [Mass/Vol] 9.2 mg/dL Normal 8.8-10.0 [facility] Comment on above: Performed By: #### L AB17 ####Lease Administration Supervisor: CHELSIE ISAACS ([phone])[facility] ([facility])[address] [place] [address] Chloride [Moles/Vol] 109 mmol/L High 98-107 [facility] Comment on above: Performed By: #### L AB17 ####Lease Administration Supervisor: CHELSIE ISAACS ([phone])[facility] ([facility])[address] [place] [address] CO2 [Moles/Vol] 23 mmol/L Normal 23-31 [facility] Comment on above: Performed By: #### L AB17 ####Lease Administration Supervisor: CHELSIE ISAACS ([phone])[facility] ([facility])[address] [place] [address] Creatinine [Mass/Vol] 0.75 mg/dL Normal 0.57-1.11 [facility] Comment on above: Performed By: #### L AB17 ####Lease Administration Supervisor: CHELSIE ISAACS ([phone])[facility] ([facility])[address] [place] [address] [place] GLOMERULAR FILTRATION RATE ML/MIN/1.73 SQ M.PREDICTED 81.6 mL/min/1.73m*2 Normal >60.0 [facility] Comment on above: Result Comment: Calc ulation based on the Chronic Kidney Disease Epidemiology Collaboration (CKD-EPI) equation refit without adjustment for race Performed By: #### L AB17 ####Lease Administration Supervisor: CHELSIE ISAACS ([phone])[facility] [facility] ([facility])[address] [place] [address] [place] Glucose [Mass/Vol] 94 mg/dL Normal 82-115 [facility] Comment on above: Performed By: #### L AB17 ####Lease Administration Supervisor: CHELSIE ISAACS ([phone])[facility] ([facility])[address] [place] [address] [place] Potassium [Moles/Vol] 3.7 mmol/L Normal 3.5-5.1 [facility] Comment on above: Result Comment: [facility] potassium values may be up to 0.5 mmol/L lower than serum values. Performed By: #### L AB17 ####Lease Administration Supervisor: CHELSIE ISAACS ([phone])[facility] ([facility])[address] [place] [address] Protein [Mass/Vol] 6.6 g/dL Normal 6.4-8.3 [facility] Comment on above: Performed By: #### L AB17 ####Lease Administration Supervisor: CHELSIE ISAACS ([phone])[facility] ([facility])[address] [place] [address] Sodium [Moles/Vol] 141 mmol/L Normal 136-145 [facility] Comment on above: Performed By: #### L AB17 ####Lease Administration Supervisor: CHELSIE ISAACS ([phone])[facility] ([facility])[address] [place] [address] Urea nitrogen [Mass/Vol] 18 mg/dL Normal 9-23 [facility] Comment on above: Performed By: #### L AB17 ####Lease Administration Supervisor: CHELSIE ISAACS ([phone])[facility])[address] [place] [address] [id number] 01-09-2025 [id number] Normal [facility] ACT Activated Clotting Timeo n 01-09-2025 ACTk CLOT TIME 147 sec High 74-137 [facility] Comment on above: Performed By: #### L 9100.0100 ####[facility] [id number] [place], [place], [address] APTTon 01-09-2025 aPTT Coag (Bld) [Time] 46.3 s High 20.0-30.5 [facility] Comment on above: Result Comment: SHARA Hand COMMENTS:NOTE: The therapeutic time for Heparin anticoagulation, based on Xa activity inhibition, is an APTT of 46-80 seconds. Performed By: #### L AB325 ####Lease Administration Supervisor: CHELSIE ISAACS ([phone])[facility])[address] aPTT Coag (Bld) [Time] 26.8 s Normal 20.0-30.5 [facility] Comment on above: Result Comment: SHARA Hand COMMENTS:NOTE: The therapeutic time for Heparin anticoagulation, based on Xa activity inhibition, is an APTT of 46-80 seconds. Performed By: #### L AB325 ####Lease Administration Supervisor: CHELSIE ISAACS ([phone])[facility] ([facility])[address] [place] [address] Basic Metabolic Profile (BMP )on 01-09-2025 BUN Normal 4-19 [facility] Comment on above: Result Comment: Canc elled via OM: Order cancelled - Patient discharged Performed By: #### L 300.4310 #### [facility] [address] [place], [address] Result Comment: Canc elled via OM: MD Ordered BUN/CRE Normal 10-20 [facility] Comment on above: Result Comment: Canc elled via OM: Order cancelled - Patient discharged Performed By: #### L 300.4310 #### [facility] [address] [place], [address] Result Comment: Canc elled via OM: MD Ordered Calcium Normal 7.6-11.0 [facility] Comment on above: Result Comment: Canc elled via OM: Order cancelled - Patient discharged Performed By: #### L 300.4310 #### [facility] [address] [place], [address] Result Comment: Canc elled via OM: MD Ordered CL Normal 98-108 [facility] Comment on above: Result Comment: Canc elled via OM: Order cancelled - Patient discharged Performed By: #### L 300.4310 #### [facility] [address] [place], [address] Result Comment: Canc elled via OM: MD Ordered CO2 Normal 21.0-32.0 [facility] Comment on above: Result Comment: Canc elled via OM: Order cancelled - Patient discharged Performed By: #### L 300.4310 #### [facility] [address] [place], [address] Result Comment: Canc elled via OM: MD Ordered CREAT,SERUM Normal 0.70-1.20 [facility] Comment on above: Result Comment: Canc elled via OM: Order cancelled - Patient discharged Performed By: #### L 300.4310 #### [facility] [address] [place], [address] Result Comment: Canc elled via OM: MD Ordered eGFR Normal >60 [facility] Comment on above: Result Comment: Canc elled via OM: Order cancelled - Patient discharged Performed By: #### L 300.4310 #### [facility] [address] [place], [address] Result Comment: Canc elled via OM: MD Ordered GAP Normal 5-15 [facility] Comment on above: Result Comment: Canc elled via OM: Order cancelled - Patient discharged Performed By: #### L 300.4310 #### [facility] [address] [place], [address] Result Comment: Canc elled via OM: MD Ordered GLU Normal 70-99 [facility] Comment on above: Result Comment: Canc elled via OM: Order cancelled - Patient discharged Performed By: #### L 300.4310 #### [facility] [address] [place], [address] Result Comment: Canc elled via OM: MD Ordered Potassium Normal 3.3-5.1 [facility] Comment on above: Result Comment: Canc elled via OM: Order cancelled - Patient discharged Performed By: #### L 300.4310 #### [facility] [address] [place], [address] Result Comment: Canc elled via OM: MD Ordered Basic Metabolic Profile (BMP) Normal 133-145 [facility] Comment on above: Result Comment: Canc elled via OM: Order cancelled - Patient discharged Performed By: #### L 300.4310 #### [facility] [address] [place], [address] Result Comment: Canc elled via OM: Ordered CBC (HEMOGRAM)on 01-09-2025 Erythrocyte distribution width (RBC) [Ratio] 14.3 % Normal 11.5-15.0 [facility] Comment on above: Performed By: #### L AB294 ####Lease Administration Supervisor: CHELSIE ISAACS ([phone])[facility])[address] [place] [address] Hematocrit (Bld) [Volume fraction] 40.1 % Normal 35.0-47.0 [facility] Comment on above: Performed By: #### L AB294 ####Lease Administration Supervisor: CHELSIE ISAACS ([phone])[facility])[address] [place] [address] Hemoglobin (Bld) [Mass/Vol] 13.2 g/dL Normal 11.7-16.0 [facility] Comment on above: Performed By: #### L AB294 ####Lease Administration Supervisor: CHELSIE ISAACS ([phone])[facility] ([facility])[address] [place] [address] MCH (RBC) [Entitic mass] 28.9 pg Normal 26.0-34.0 [facility] Comment on above: Performed By: #### L AB294 ####Lease Administration Supervisor: CHELSIE ISAACS ([phone])[facility])[address] [place] [address] MCHC 32.9 % Normal 30.5-36.0 [facility] Comment on above: Performed By: #### L AB294 ####Lease Administration Supervisor: CHELSIE ISAACS ([phone])[facility] ([facility])[address] [place] [address] MCV (RBC) [Entitic vol] 87.9 fL Normal 77.0-99.0 [facility] Comment on above: Performed By: #### L AB294 ####Lease Administration Supervisor: CHELSIE ISAACS ([phone])[facility])[address] [place] [address] Platelet mean volume (Bld) [Entitic vol] 9.6 fL Normal 9.0-12.7 [facility] Comment on above: Performed By: #### L AB294 ####Lease Administration Supervisor: CHELSIE ISAACS ([phone])[facility] ([facility])[address] [place] [address] Platelets (Bld) [#/Vol] 232 10*3/uL Normal 140-440 [facility] Comment on above: Performed By: #### L AB294 ####Lease Administration Supervisor: CHELSIE ISAACS ([phone])[facility])[address] [place] [address] RBC (Bld) [#/Vol] 4.56 10*6/uL Normal 3.80-5.20 [facility] Comment on above: Performed By: #### L AB294 ####Lease Administration Supervisor: CHELSIE ISAACS ([phone])[facility])[address] [place] [address] WBC (Bld) [#/Vol] 5.0 10*3/uL Normal 3.6-10.7 [facility] Comment on above: Performed By: #### L AB294 ####Lease Administration Supervisor: CHELSIE ISAACS ([phone])[facility] ([facility])[address] [place] [address] CBC-Complete Blood Cnt No Di ffon 01-09-2025 HCT Normal 37-47 [facility] Comment on above: Result Comment: Canc elled via OM: Order cancelled - Patient discharged Performed By: #### L 499.0043 #### [facility] [address] [place], [address] HGB Normal 12.0-15.0 [facility] Comment on above: Result Comment: Canc elled via OM: Order cancelled - Patient discharged Performed By: #### L 499.0043 #### [facility] [address] [place], [address] MCH Normal 27.0-32.0 [facility] Comment on above: Result Comment: Canc elled via OM: Order cancelled - Patient discharged Performed By: #### L 499.0043 #### [facility] [address] [place], [address] MCHC Normal 32-36 [facility] Comment on above: Result Comment: Canc elled via OM: Order cancelled - Patient discharged Performed By: #### L 499.0043 #### [facility] [address] [place], [address] MCV Normal 81-99 [facility] Comment on above: Result Comment: Canc elled via OM: Order cancelled - Patient discharged Performed By: #### L 499.0043 #### [facility] [address] [place], [address] PLT Normal 150-450 [facility] Comment on above: Result Comment: Canc elled via OM: Order cancelled - Patient discharged Performed By: #### L 499.0043 #### [facility] [address] [place], [address] RBC Normal 4.2-5.4 [facility] Comment on above: Result Comment: Canc elled via OM: Order cancelled - Patient discharged Performed By: #### L 499.0043 #### [facility] [address] [place], [address] RDW CV Normal 11.6-14.6 [facility] Comment on above: Result Comment: Canc elled via OM: Order cancelled - Patient discharged Performed By: #### L 499.0043 #### [facility] [address] [place], [place], [address] RDW SD Normal 35.1-43.9 [facility] Comment on above: Result Comment: Canc elled via OM: Order cancelled - Patient discharged Performed By: #### L 499.0043 #### [facility] [address] [place], [place], [address] WBC Normal 4.4-11.0 [facility] Comment on above: Result Comment: Canc elled via OM: Order cancelled - Patient discharged Performed By: #### L 499.0043 #### [facility] [address] [place], [place], [id number] COMPREHENSIVE METABOLIC PANE [facility] 01-09-2025 Albumin [Mass/Vol] 3.5 g/dL Normal 3.4-4.8 [facility] Comment on above: Performed By: #### Joseph GONZALES18, LAB17 ####Lease Administration Supervisor: CHELSIE ISAACS ([phone])[facility])[address] [place] [address] ALP [Catalytic activity/Vol] 92 U/L Normal 40-150 [facility] Comment on above: Performed By: #### Joseph GONZALES18, LAB17 ####Lease Administration Supervisor: CHELSIE ISAACS ([phone])[facility] ([facility])[address] [place] [address] [place] ALT [Catalytic activity/Vol] 22 U/L Normal <30 [facility] Comment on above: Performed By: #### Joseph AB18, LAB17 ####Lease Administration Supervisor: CHELSIE ISAACS ([phone])[facility] ([facility])[address] [place] [address] [place] Anion gap [Moles/Vol] 10 mmol/L Normal 3-13 [facility] Comment on above: Performed By: #### L AB18, LAB17 ####Lease Administration Supervisor: CHELSIE ISAACS ([phone])[facility] ([facility])[address] [place] [address] [place] AST [Catalytic activity/Vol] 28 U/L Normal <34 [facility] Comment on above: Performed By: #### L AB18, LAB17 ####Lease Administration Supervisor: CHELSIE ISAACS ([phone])[facility])[address] [place] [address] Bilirubin [Mass/Vol] 0.4 mg/dL Normal <1.2 [facility] Comment on above: Performed By: #### L AB18, LAB17 ####Lease Administration Supervisor: CHELSIE ISAACS ([phone])[facility])[address] [place] [address] Calcium [Mass/Vol] 9.9 mg/dL Normal 8.8-10.0 [facility] Comment on above: Performed By: #### L AB18, LAB17 ####Lease Administration Supervisor: CHELSIE ISAACS ([phone])[facility] ([facility])[address] [place] [address] Chloride [Moles/Vol] 105 mmol/L Normal 98-107 [facility] Comment on above: Performed By: #### L AB18, LAB17 ####Lease Administration Supervisor: CHELSIE ISAACS ([phone])[facility] ([facility])[address] [place] [address] CO2 [Moles/Vol] 21 mmol/L Low 23-31 [facility] Comment on above: Performed By: #### L AB18, LAB17 ####Lease Administration Supervisor: CHELSIE ISAACS ([phone])[facility])[address] [place] [address] Creatinine [Mass/Vol] 0.71 mg/dL Normal 0.57-1.11 [facility] Comment on above: Performed By: #### L AB18, LAB17 ####Lease Administration Supervisor: CHELSIE ISAACS ([phone])[facility])[address] [place] [address] GLOMERULAR FILTRATION RATE ML/MIN/1.73 SQ M.PREDICTED 87.2 mL/min/1.73m*2 Normal >60.0 [facility] Comment on above: Result Comment: Calc ulation based on the Chronic Kidney Disease Epidemiology Collaboration (CKD-EPI) equation refit without adjustment for race Performed By: #### L AB18, LAB17 ####Lease Administration Supervisor: CHELSIE ISAACS ([phone])[facility])[address] [place] [address] Glucose [Mass/Vol] 102 mg/dL Normal 82-115 [facility] Comment on above: Performed By: #### L AB18, LAB17 ####Lease Administration Supervisor: CHELSIE ISAACS ([phone])[facility])[address] [place] [address] Potassium [Moles/Vol] 3.9 mmol/L Normal 3.5-5.1 [facility] Comment on above: Result Comment: [facility] potassium values may be up to 0.5 mmol/L lower than serum values. Performed By: #### L AB18, LAB17 ####Lease Administration Supervisor: CHELSIE ISAACS ([phone])[facility])[address] [place] [address] Protein [Mass/Vol] 7.4 g/dL Normal 6.4-8.3 [facility] Comment on above: Performed By: #### L AB18, LAB17 ####Lease Administration Supervisor: CHELSIE ISAACS ([phone])[facility])[address] [place] [address] Sodium [Moles/Vol] 136 mmol/L Normal 136-145 [facility] Comment on above: Performed By: #### L AB18, LAB17 ####Lease Administration Supervisor: CHELSIE ISAACS ([phone])[facility])[address] [place] [address] Urea nitrogen [Mass/Vol] 18 mg/dL Normal 9-23 [facility] Comment on above: Performed By: #### L AB18, LAB17 ####Lease Administration Supervisor: CHELSIE ISAACS ([phone])[facility])[address] [place] [address] CT CHEST WO IV CONTRASTon CT CHEST WO IV CONTRAST Normal [facility] Discharge Instructionon 05 0-2025 Discharge Instruction [facility] Medical Records Department [address] [place] [address] Instructions for Home/Discharge Instructions 01/09/25910 MR#: [id number] Acct: [id number] Name: RITIKA SANTANA Rep #: [id number] : 1945 79 From: Dnaial Salazar DO PCP: ERIN GRANT Status:DIS IN Discharge Instructions DC O2, CPAP, BIPAP needs Home O2 Discharge instructions: No Follow Up Care Test Results: Test results from this visit will be discussed in further detail at your follow-up appointment, if applicable. Discharge Plan Admission Admit Date/Time: 01/07/25 13:00 Primary Reason for Your Visit: Shortness of breath with exertion Attending Provider: Danial Salazar Primary Care Provider: BECKY MCKNIGHT Consulting Providers: Richard White; Washington Damico Discharge Orders/Prescriptions Prescriptions: Continued esomeprazole magnesium [Nexium] 20 mg capsule,delayed release(DR/EC) 20 mg PO DAILY Probiotic (B. coagulans) 10 billion cell capsule,delayed release(DR/EC) 10 cell PO DAILY latanoprost (PF) 0.005 % drops 1 drp ophthalmic (eye) QDAY cetirizine 10 MG capsule 10 mg PO DAILY Patient Comments: allergies potassium chloride 20 mEq tablet extended release 20 meq PO DAILY Qty: 90 4RF hydrochlorothiazide 25 mg tablet 25 mg PO DAILY Qty: 90 3RF diltiazem HCl 120 mg capsule,extended release 24hr See Rx Instructions .ROUTE .COMPLEX Qty: 90 3RF Dose Instruction: TAKE 1 CAPSULE BY MOUTH EVERY DAY Rx Instructions: TAKE 1 CAPSULE BY MOUTH EVERY DAY Eliquis 5 mg tablet 5 mg PO BID Qty: 180 3RF benazepril 20 mg tablet See Rx Instructions .ROUTE .COMPLEX Qty: 90 3RF Dose Instruction: TAKE 1 TABLET BY MOUTH EVERY DAY Rx Instructions: TAKE 1 TABLET BY MOUTH EVERY DAY Referrals / Follow Up: BECKY MCKNIGHT CRNP [Primary Care Provider] - Disposition Disposition (needs filled in before D/C Order can be placed): [facility] 01/09/25911 Danial Salazar DO CC: Dr. Washington Damico DO; Dr. Richard White MD; ERIN GRANT Signed Normal [facility] ECG 12-LEADon 01-09-2025 ECG 12-LEAD IMPRESSION: Sinus rhythm Nonspecific repol abnormality, diffuse leads No previous ECG available for comparison Electronically Signed On 01-09-2025 14:42:36 EDT by Tom Hoang Normal [facility] LIPID PANELon 01-09-2025 Cholesterol [Mass/Vol] 221 mg/dL High <200 [facility] Comment on above: Performed By: #### L AB18, LAB17 ####Lease Administration Supervisor: CHELSIE ISAACS ([phone])[facility] ([facility])[address] [place] [address] Cholesterol in HDL [Mass/Vol] 51 mg/dL Low >=60 [facility] Comment on above: Performed By: #### L AB18, LAB17 ####Lease Administration Supervisor: CHELSIE ISAACS ([phone])[facility])[address] [place] [address] Cholesterol.total/Choles terol in HDL [Mass ratio] 4 {ratio} Normal [facility] Comment on above: Result Comment: Ref Range:< 3 Low Risk for CHD3-6 Mod Risk for CHD> 6 High Risk for CHD Performed By: #### L AB18, LAB17 ####Lease Administration Supervisor: CHELSIE ISAACS ([phone])[facility] ([facility])[address] [place] [address] [place] LOW DENSITY LIPOPROTEIN 131 mg/dL High 0-<100 [facility] Comment on above: Performed By: #### L AB18, LAB17 ####Lease Administration Supervisor: CHELSIE ISAACS ([phone])[facility] ([facility])[address] [place] [address] [place] NON-HDL CHOLESTEROL, CALCULATED 170 High <130 [facility] Comment on above: Performed By: #### L AB18, LAB17 ####Lease Administration Supervisor: CHELSIE ISAACS ([phone])[facility] ([facility])[address] [place] [address] [place] Triglyceride [Mass/Vol] 196 mg/dL High <150 [facility] Comment on above: Performed By: #### L AB18, LAB17 ####Lease Administration Supervisor: CHELSIE ISAACS ([phone])[facility] ([facility])[address] [place] [address] VERY LOW DENSITY LIPOPROTEIN, CALCULATED 39 mg/dL High <=30 [facility] Comment on above: Performed By: #### L AB18, LAB17 ####Lease Administration Supervisor: CHELSIE ISAACS ([phone])[facility] ([facility])[address] [place] [address] MRSA BY PCRon 01-09-2025 MRSA BY PCR Normal [facility] Comment on above: Performed By: #### L [id number] ####Lease Administration Supervisor: CHELSIE ISAACS ([phone])[facility])[address] [place] [address] Nursing Noteon 01-09-2025 Nursing Note Normal [facility] PROTIME AND APTTon aPTT Coag (Bld) [Time] 41.6 s High 20.0-30.5 [facility] Comment on above: Performed By: #### L [id number] ####Lease Administration Supervisor: CHELSIE ISAACS ([phone])[facility])[address] [place] [address] INR Coag (PPP) [Relative time] 1.0 {INR} Normal 0.9-1.1 [facility] Comment on above: Performed By: #### L [id number] ####Lease Administration Supervisor: CHELSIE ISAACS ([phone])[facility] ([facility])[address] [place] [address] PT Coag (PPP) [Time] 11.0 s Normal 9.0-12.0 [facility] Comment on above: Performed By: #### L [id number] ####Lease Administration Supervisor: CHELSIE ISAACS ([phone])[facility])[address] [place] [address] Progress Noteon 01-09-2025 Progress Note Patient arrived to floor. Nursing eval reveals patient has intact cath site and stable vital signs. We will admit patient and assess CAD. Regular diet and activity for now. Full assessment imminent. Normal [facility] XR CHEST 1 VIEWon 01-09-2025 XR CHEST 1 VIEW Normal [facility] 12 Lead EKGon 01-08-2025 12 Lead EKG [facility] Cardiovascular Services [address] [place] [address] 12 Lead EKG 01/07/25 1645 MR#: [id number] Acct: [id number] Name: RITIKA SANTANA Rep #: [id number] : 1945 79 From: Richard White MD Attending Dr: Dr. Danial Salazar DO Status : DIS IN Ordering Dr: Richard White MD Date: 01/08/25 Location: [facility] Sex: F C Admitted: 01/07/25 Test Reason : ADMIT Blood Pressure : */* mmHG Vent. Rate : 81 BPM Atrial Rate : 81 BPM P-R Int : 140 ms QRS Dur : 90 ms QT Int : 374 ms P-R-T Axes : 47 -2 -42 degrees QTcB Int : 434 ms Normal sinus rhythm Nonspecific ST and T wave abnormality Abnormal ECG When compared with ECG of 07-Jan-2025 12:47, MANUAL COMPARISON REQUIRED DATA IS UNCONFIRMED Confirmed by RICHARD WHITE ([id number]), script editor ANNA REID ([id number]) on 01/12/2025 8:14:28 AM Referred By: Confirmed By: RICHARD WHITE 01/12/25 0814 Date Richard White MD CC: Dr. Danial Salazar DO; Dr. Richard White MD; ERIN GRANT Signed Normal [facility] Absolute lymphocyte countOrd ered By: Washington Damico on 01-08-2025 Lymphocytes Auto (Unsp spec) [#/Vol] 2.04 10*3/uL 0.83-4.51 [facility] Absolute neutrophil countOrd ered By: Washington Damico on 01-08-2025 Neutrophils (Bld) [#/Vol] 2.9 10*3/uL 2.0-7.7 [facility] Activated partial thrombopla stin time (aPTT) in platelet poor plasma by coagulation aOrdered By: Richard White on 01-08-2025 aPTT Coag (PPP) [Time] 48.2 s High 24.1-36.2 [facility] Anion gap in Serum or Plasma Ordered By: Washington Damico on 01-08-2025 Anion gap [Moles/Vol] 12 mmol/L - [facility] Automated lymphocyte count a s percentage of total leukocytesOrdered By: Washington Damico on 01-08-2025 Lymphocytes/100 WBC Auto (Unsp spec) 36.3 % [facility] BUN/creatinine ratioOrdered By: Washington Damico on 01-08-2025 Urea nitrogen/Creatinine [Mass ratio] 24.0 mg/mg High 06-01 [facility] Basic Metabolic Profile (BMP )on 01-08-2025 BUN/CRE 24.0 RATIO High - [facility] Comment on above: Performed By: #### L 300.4310 #### [facility] [address] [place], [address] Calcium [Mass/Vol] 9.2 mg/dL Normal 7.6-11.0 [facility] Comment on above: Performed By: #### L 300.4310 #### [facility] [address] [place], [address] Chloride [Moles/Vol] 106 mmol/L Normal 98-108 [facility] [facility] Comment on above: Performed By: #### L 300.4310 #### [facility] [address] [place], [address] CO2 [Moles/Vol] 22.4 mmol/L Normal 21.0-32.0 [facility] Comment on above: Performed By: #### L 300.4310 #### [facility] [address] [place], [address] Creatinine [Mass/Vol] 0.72 mg/dL Normal 0.70-1.20 [facility] Comment on above: Performed By: #### L 300.4310 #### [facility] [address] [place], [address] ECRCL 54.26 ml/min Normal 50-250 [facility] Comment on above: Performed By: #### L 300.4310 #### [facility] [address] [place], [address] GAP 12 Normal 5-15 [facility] Comment on above: Performed By: #### L 300.4310 #### [facility] [address] [place], [address] GFR/1.73 sq M.predicted among non-blacks MDRD (S/P/Bld) [Vol rate/Area] 85 mL/min/{1.73_m2} Normal >60 [facility] Comment on above: Result Comment: mL/m in/1.73m2 CKD-EPI Creatinine Equation (2020) Performed By: #### L 300.4310 #### [facility] [address] [place], [address] Glucose [Mass/Vol] 107 mg/dL High 70-99 [facility] Comment on above: Performed By: #### L 300.4310 #### [facility] [address] [place], [address] Potassium [Moles/Vol] 3.9 mmol/L Normal 3.3-5.1 [facility] Comment on above: Performed By: #### L 300.4310 #### [facility] [address] [place], [address] Sodium [Moles/Vol] 141 mmol/L Normal 133-145 [facility] Comment on above: Performed By: #### L 300.4310 #### [facility] [address] [place], [address] Urea nitrogen [Mass/Vol] 17 mg/dL Normal 4-19 [facility] Comment on above: Performed By: #### L 300.4310 #### [facility] [address] [place], [address] Basophil percentageOrdered B y: Washington Damico on 01-08-2025 Basophils/100 WBC (Bld) 0.9 % 0-1 [facility] CBC W/Diff, Automatedon 12-12 Absolute Lymph 2.04 X10 3/uL Normal 0.83-4.51 [facility] Comment on above: Performed By: #### L 300.4310 #### [facility] [address] [place], [address] Absolute Neut 2.9 X10 3/uL Normal 2.0-7.7 [facility] Comment on above: Performed By: #### L 300.4310 #### [facility] [address] [place], [address] Basophils/100 WBC (Bld) 0.9 % Normal 0-1 [facility] Comment on above: Performed By: #### L 300.4310 #### [facility] [address] [place], [address] Eosinophils/100 WBC (Bld) 2.5 % Normal 0-5 [facility] Comment on above: Performed By: #### L 300.4310 #### [facility] [address] [place], [address] Erythrocyte distribution width (RBC) [Ratio] 14.1 % Normal 11.6-14.6 [facility] Comment on above: Performed By: #### L 300.4310 #### [facility] [address] [place], [address] Hematocrit (Bld) [Volume fraction] 39.5 % Normal 37-47 [facility] Comment on above: Performed By: #### L 300.4310 #### [facility] [address] [place], [address] Hemoglobin (Bld) [Mass/Vol] 13.0 g/dL Normal 12.0-15.0 [facility] Comment on above: Performed By: #### L 300.4310 #### [facility] [address] [place], [address] IG% 0.200 Normal 0.0-0.9 [facility] Comment on above: Result Comment: IG% - Immature Granulocytes (promyelocytes, myelocytes and metamyelocytes) > 1% indicates that a LEFT SHIFT is Present. Performed By: #### L 300.4310 #### [facility] [address] [place], [address] Lymphocytes/100 WBC (Bld) 36.3 % Normal 19-41 [facility] Comment on above: Performed By: #### L 300.4310 #### [facility] [address] [place], [address] MCH (RBC) [Entitic mass] 29.3 pg Normal 27.0-32.0 [facility] Comment on above: Performed By: #### L 300.4310 #### [facility] [address] [place], [address] MCHC (RBC) [Mass/Vol] 32.9 g/dL Normal 32-36 [facility] Comment on above: Performed By: #### L 300.4310 #### [facility] [address] [place], [address] MCV (RBC) [Entitic vol] 89.0 fL Normal 81-99 [facility] Comment on above: Performed By: #### L 300.4310 #### [facility] [address] [place], [address] Monocytes/100 WBC (Bld) 9.1 % Normal 0-10 [facility] Comment on above: Performed By: #### L 300.4310 #### [facility] [address] [place], [address] Neutrophils/100 WBC (Bld) 51.0 % Normal 47-70 [facility] Comment on above: Performed By: #### L 300.4310 #### [facility] [address] [place], [address] Nucleated RBC (Bld) [#/Vol] 0 10*3/uL Normal 0-5 [facility] Comment on above: Performed By: #### L 300.4310 #### [facility] [address] [place], [address] Platelet mean volume (Bld) [Entitic vol] 9.5 fL Normal 6.2-12.0 [facility] Comment on above: Performed By: #### L 300.4310 #### [facility] [address] [place], [address] Platelets (Bld) [#/Vol] 236 10*3/uL Normal 150-450 [facility] Comment on above: Performed By: #### L 300.4310 #### [facility] [address] [place], [address] RBC (Bld) [#/Vol] 4.44 10*6/uL Normal 4.2-5.4 [facility] Comment on above: Performed By: #### L 300.4310 #### [facility] [address] [place], [address] RDW SD 45.5 fl High 35.1-43.9 [facility] Comment on above: Performed By: #### L 300.4310 #### [facility] [address] [place], [address] WBC (Bld) [#/Vol] 5.6 10*3/uL Normal 4.4-11.0 [facility] Comment on above: Performed By: #### L [id number] #### [facility] [address] [place], [address] CVS/PCIREPORTon 01-08-2025 CVS/PCIREPORT [facility] [address] [place] [address] MR#: [id number] Acct: [id number] Name: RITIKA SANTANA Rep #: [id number] : 1945 79 From: Richard White MD Primary Care: ERIN GRANT Status: AD M IN Referring Dr: Sex: F C PCI Cardiac Cath Report PCI Report: Procedure performed; 1. Access from the right common femoral artery With placement of 6 Chadian sheath. 2. Selective left coronary angiography 3. Selective right coronary angiography 4. Measurement of LVEDP 5. Pullback pressure 6. Selective right common femoral artery angiography with manual pressure to maintain hemostasis. Preprocedure diagnosis 79-year-old patient who had symptoms of progressive shortness of breath on exertion Presented to the ED yesterday complaining of chest pain diffuse discomfort in the chest radiating to the back and to the left or right shoulder. Patient had history of hypertension Clinical diagnosis of non-ST elevation TN. Consent; Risk and benefit of procedure explained detail patient like to proceed informed consent obtained. Diagnostic catheter used; 1. 6 Chadian sheath in the right common femoral artery 2. 5 Chadian JL 4 3. 5 Chadian JR4. Procedure in detail; Patient brought to the [facility] in fasting state Access obtained from right common femoral artery as she had a very feeble and palpable right radial artery Under fluoroscopic guidance. Then we will proceed with a diagnostic catheter advanced ascending aorta cannulated the left main without difficulty Then we proceed with an evaluation of the left coronary system multiple views including NEPALESE, BURRELL cranial and caudal views. Following this the catheter exchanged for 5 Chadian JR4 catheter and selective angiographic view of the right coronary system were obtained Close aortic valve in place the catheter in the mid LV Where LVEDP was measured as well as the pullback pressure. Hemodynamics; LVEDP measuring around 50 mmHg 2. No systolic gradient across aortic valve. Coronary angiography; 1. Left main is calcified distal left main at the site of the bifurcation had around 60-70% stenosis. The left main bifurcates into the left anterior descending on the left circumflex. The calcification in the left main extending to the LAD and the left circumflex. 2. Left anterior descending is a large vessel reach all the way to the apex. The mid LAD had nonobstructive atherosclerosis of around 30% at the site of a large septal branch and diagonal branch D1 had an ostial lesion of around 50 to 60%. Septal branches of the LAD provide collateral to the distal RCA. 3. The left circumflex had a subtotal OM 2 which is moderate-sized vessel. Again collateral was noted from the left circumflex into the distal posterolateral branch. 4. 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 Will evaluate with echocardiogram As well patient will be transferred for evaluation with CABG/Suffern/summa Possible BLANCO to LAD, and vein graft to the distal RCA, PDA and OM2 Possible quadruple bypass surgery. Richard White MD,[facility] 01/08/251114 Date Richard White MD CC: Dr. Danial Salazar, DO; ERIN GRANT Date Dictated: 01/08/251114 Date Transcribed: 01/08/251114 Almond Paste Molder: FB Signed Normal [facility] CVS/PCIREPORT [facility] [address] [place] [address] MR#: [id number] Acct: [id number] Name: RITIKA SANTANA Rep #: [id number] : 1945 79 From: Richard White MD Primary Care: ERIN GRANT Status: AD M IN Referring Dr: Sex: F C PCI Cardiac Cath Report PCI Report: Procedure performed; 1. Access from the right common femoral artery With placement of 6 Chadian sheath. 2. Selective left coronary angiography 3. Selective right coronary angiography 4. Measurement of LVEDP 5. Pullback pressure 6. Selective right common femoral artery angiography with manual pressure to maintain hemostasis. Preprocedure diagnosis 79-year-old patient who had symptoms of progressive shortness of breath on exertion Presented to the ED yesterday complaining of chest pain diffuse discomfort in the chest radiating to the back and to the left or right shoulder. Patient had history of hypertension Clinical diagnosis of non-ST elevation TN. Consent; Risk and benefit of procedure explained detail patient like to proceed informed consent obtained. Diagnostic catheter used; 1. 6 Chadian sheath in the right common femoral artery 2. 5 Chadian JL 4 3. 5 Chadian JR4. Procedure in detail; Patient brought to the [facility] in fasting state Access obtained from right common femoral artery as she had a very feeble and palpable right radial artery Under fluoroscopic guidance. Then we will proceed with a diagnostic catheter advanced ascending aorta cannulated the left main without difficulty Then we proceed with an evaluation of the left coronary system multiple views including NEPALESE, BURRELL cranial and caudal views. Following this the catheter exchanged for 5 Chadian JR4 catheter and selective angiographic view of the right coronary system were obtained Close aortic valve in place the catheter in the mid LV Where LVEDP was measured as well as the pullback pressure. Hemodynamics; LVEDP measuring around 50 mmHg 2. No systolic gradient across aortic valve. Coronary angiography; 1. Left main is calcified distal left main at the site of the bifurcation had around 60-70% stenosis. The left main bifurcates into the left anterior descending on the left circumflex. The calcification in the left main extending to the LAD and the left circumflex. 2. Left anterior descending is a large vessel reach all the way to the apex. The mid LAD had nonobstructive atherosclerosis of around 30% at the site of a large septal branch and diagonal branch D1 had an ostial lesion of around 50 to 60%. Septal branches of the LAD provide collateral to the distal RCA. 3. The left circumflex had a subtotal OM 2 which is moderate-sized vessel. Again collateral was noted from the left circumflex into the distal posterolateral branch. 4. 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 Will evaluate with echocardiogram As well patient will be transferred for evaluation with CABG/Suffern/summa Possible BLANCO to LAD, and vein graft to the distal RCA, PDA and OM2 Possible quadruple bypass surgery. Richard White MD,[facility] 01/08/25 1122 Date Richard White MD CC: Dr. Danial Salazar, DO; ERIN GRANT Date Dictated: 01/08/251102 Date Transcribed: 01/08/251102 Almond Paste Molder: ASYA Signed Normal [facility] Carbon dioxide, total [Moles /volume] in Central venous bloodOrdered By: Washington Damico on 01-08-2025 CO2 [Moles/Vol] 22.4 mmol/L 21.0-32.0 [facility] Cardiac catheterization repo rtOrdered By: Richard White on 01-08-2025 Cardiac catheterization study [facility] [address] [place] [address] MR#: [id number] Acct: [id number] Name: RITIKA SANTANA Rep #: [id number] : 1945 79 From: Richard White MD Primary Care: ERIN GRANT Status: ADM IN Referring Dr: Sex: F C PCI Cardiac Cath Report PCI Report: Procedure performed; 1. Access from the right common femoral artery With placement of 6 Chadian sheath. 2. Selective left coronary angiography 3. Selective right coronary angiography 4. Measurement of LVEDP 5. Pullback pressure 6. Selective right common femoral artery angiography with manual pressure to maintain hemostasis. Preprocedure diagnosis 79-year-old patient who had symptoms of progressive shortness of breath on exertion Presented to the ED yesterday complaining of chest pain diffuse discomfort in the chest radiating to the back and to the left or right shoulder. Patient had history of hypertension Clinical diagnosis of non-ST elevation TN. Consent; Risk and benefit of procedure explained detail patient like to proceed informed consent obtained. Diagnostic catheter used; 1. 6 Chadian sheath in the right common femoral artery 2. 5 Chadian JL 4 3. 5 Chadian JR4. Procedure in detail; Patient brought to the [facility] in fasting state Access obtained from right common femoral artery as she had a very feeble and palpable right radial artery Under fluoroscopic guidance. Then we will proceed with a diagnostic catheter advanced ascending aorta cannulated the left main without difficulty Then we proceed with an evaluation of the left coronary system multiple views including NEPALESE, BURRELL cranial and caudal views. Following this the catheter exchanged for 5 Chadian JR4 catheter and selective angiographic view of the right coronary system were obtained Close aortic valve in place the catheter in the mid LV Where LVEDP was measured as well as the pullback pressure. Hemodynamics; LVEDP measuring around 50 mmHg 2. No systolic gradient across aortic valve. Coronary angiography; 1. Left main is calcified distal left main at the site of the bifurcation had around 60-70% stenosis. The left main bifurcates into the left anterior descending on the left circumflex. The calcification in the left main extending to the LAD and the left circumflex. 2. Left anterior descending is a large vessel reach all the way to the apex. The mid LAD had nonobstructive atherosclerosis of around 30% at the site of a large septal branch and diagonal branch D1 had an ostial lesion of around 50 to 60%. Septal branches of the LAD provide collateral to the distal RCA. 3. The left circumflex had a subtotal OM 2 which is moderate-sized vessel. Again collateral was noted from the left circumflex into the distal posterolateral branch. 4. 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 Will evaluate with echocardiogram As well patient will be transferred for evaluation with CABG/Suffern/summa Possible BLANCO to LAD, and vein graft to the distal RCA, PDA and OM2 Possible quadruple bypass surgery. Richard White MD,[facility] 01/08/25 1122 Date _ Richard White MD CC: Dr. Danial Salazar, DO; ERIN GRANT ~ Date Dictated: 01/08/251102 Date Transcribed: 01/08/251102 Almond Paste Molder: ASYA Saucedo [facility] Work Phone: Cardiac catheterization study [facility] [address] [place] [address] MR#: [id number] Acct: [id number] Name: RITIKA SANTANA Rep #: [id number] : 1945 79 From: Richard White MD Primary Care: ERIN GRANT Status: ADM IN Referring Dr: Sex: F C PCI Cardiac Cath Report PCI Report: Procedure performed; 1. Access from the right common femoral artery With placement of 6 Chadian sheath. 2. Selective left coronary angiography 3. Selective right coronary angiography 4. Measurement of LVEDP 5. Pullback pressure 6. Selective right common femoral artery angiography with manual pressure to maintain hemostasis. Preprocedure diagnosis 79-year-old patient who had symptoms of progressive shortness of breath on exertion Presented to the ED yesterday complaining of chest pain diffuse discomfort in the chest radiating to the back and to the left or right shoulder. Patient had history of hypertension Clinical diagnosis of non-ST elevation TN. Consent; Risk and benefit of procedure explained detail patient like to proceed informed consent obtained. Diagnostic catheter used; 1. 6 Chadian sheath in the right common femoral artery 2. 5 Chadian JL 4 3. 5 Chadian JR4. Procedure in detail; Patient brought to the [facility] in fasting state Access obtained from right common femoral artery as she had a very feeble and palpable right radial artery Under fluoroscopic guidance. Then we will proceed with a diagnostic catheter advanced ascending aorta cannulated the left main without difficulty Then we proceed with an evaluation of the left coronary system multiple views including NEPALESE, BURRELL cranial and caudal views. Following this the catheter exchanged for 5 Chadian JR4 catheter and selective angiographic view of the right coronary system were obtained Close aortic valve in place the catheter in the mid LV Where LVEDP was measured as well as the pullback pressure. Hemodynamics; LVEDP measuring around 50 mmHg 2. No systolic gradient across aortic valve. Coronary angiography; 1. Left main is calcified distal left main at the site of the bifurcation had around 60-70% stenosis. The left main bifurcates into the left anterior descending on the left circumflex. The calcification in the left main extending to the LAD and the left circumflex. 2. Left anterior descending is a large vessel reach all the way to the apex. The mid LAD had nonobstructive atherosclerosis of around 30% at the site of a large septal branch and diagonal branch D1 had an ostial lesion of around 50 to 60%. Septal branches of the LAD provide collateral to the distal RCA. 3. The left circumflex had a subtotal OM 2 which is moderate-sized vessel. Again collateral was noted from the left circumflex into the distal posterolateral branch. 4. 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 Will evaluate with echocardiogram As well patient will be transferred for evaluation with CABG/Suffern/summa Possible BLANCO to LAD, and vein graft to the distal RCA, PDA and OM2 Possible quadruple bypass surgery. Richard White MD,[facility] 01/08/251114 Date _ Richard White MD CC: Dr. Danial Salazar, DO; ERIN GRANT ~ Date Dictated: 01/08/251114 Date Transcribed: 01/08/251114 Almond Paste Molder: FB Signed [facility] Work Phone: Chloride assayOrdered By: Taqueria Damico on 01-08-2025 Chloride [Moles/Vol] 106 mmol/L 98-108 [facility] Echocardiogram study reportO rdered By: Richard White on 01-08-2025 Study report [facility] [address] [place] [address] Echo Complete W/ Contrast 01/08/25 0729 MR#: [id number] Acct: [id number] Name: RITIKA SANTANA Rep #:[id number] : 1945 79 From: Richard White MD Attending Dr: Dr. Danial Salazar, DO Status: ADM IN Ordering Dr: Washington Damico DO Date: Location: [facility] Sex: F C Admitted: 01/07/25 Reason For Study Reason For Study: CHEST PAIN Procedure This was a 2D Doppler, Color Flow transthoracic echocardiogram. The study was technically difficult. Due to suboptimal imaging windows. Contrast injection was performed. Exam performed portable in patient room. Left Ventricle Normal left ventricle. The estimated ejection fraction is 45-50 %. Right Ventricle Normal right ventricle. Mitral Valve There is mild mitral annular calcification. Trivial mitral valve insufficiency. Tricuspid Valve Normal tricuspid valve. Aortic Valve Trisinus/trileaflet aortic valve. Pulmonic Valve The pulmonic valve is not well visualized. Great Vessels The aortic root is not well visualized. Pericardium/Pleural No pericardial effusion. Medication Diluted definity 3.0ml given slow IV push to enhance endocardial definition. MMode/2D Measurements & Calculations LVIDd: 4.9 cm IVSd: 1.2 cm LAV(MOD-bp): 61.6 ml LVIDs: 3.8 cm LVPWd: 1.1 cm LAV(MOD-bp) Indexed: 35.7 ml/m2 RVDd: 2.6 cm FS: 21.7 % LAV(MOD-sp2): 54.2 ml LAV(MOD-sp4): 61.8 ml SV(MOD-sp4): 22.3 ml LVAd ap4: 20.2 cm2 LVAd ap2: 19.5 cm2 LVLd ap4: 7.0 cm LVLd ap2: 7.4 cm SI(MOD-sp4): 12.9 ml/m2 EDV(MOD-sp4): 48.5 ml EDV(MOD-sp2): 42.2 ml EDV(sp4-el): 49.7 ml EDV(sp2-el): 43.6 ml LVAs ap4: 14.3 cm2 LVAs ap2: 13.0 cm2 LVLs ap4: 6.3 cm LVLs ap2: 6.4 cm ESV(MOD-sp4): 26.2 ml ESV(MOD-sp2): 22.5 ml ESV(sp4-el): 27.6 ml ESV(sp2-el): 22.5 ml EF(MOD-sp4): 45.9 % EF(MOD-sp2): 46.7 % EF(sp4-el): 44.5 % SV(MOD-sp2): 19.7 ml SV(sp4-el): 22.2 ml LA A4 area: 21.1 cm2 SI(MOD-sp2): 11.4 ml/m2 LA dimension(2D): 4.3 cm TAPSE: 1.8 cm RA A4 area: 10.3 cm2 Time Measurements MV dec time: 0.17 sec Doppler Measurements & Calculations MV E max farzaneh: 69.3 cm/sec Lat Peak E' Farzaneh: 7.3 cm/sec Med Peak E' Farzaneh: 5.2 cm/sec MV A max farzaneh: 103.7 cm/sec E/E' lat: 9.5 E/E' med: 13.4 MV E/A: 0.67 MV V2 max: 97.8 cm/sec MV P1/2t max farzaneh: 72.1 cm/sec Ao V2 max: 86.9 cm/sec MV max P.8 mmHg MV P1/2t: 48.5 msec Ao max P.0 mmHg MV V2 mean: 56.4 cm/sec MV dec slope: 435.7 cm/sec2 Ao V2 mean: 58.9 cm/sec MV mean P.4 mmHg Ao mean P.5 mmHg MV V2 VTI: 21.8 cm MVA(P1/2t): 4.5 cm2 Ao V2 VTI: 16.0 cm AV (velocity ratio): 0.90 LV V1 max: 74.3 cm/sec MR max farzaneh: 516.4 cm/sec PA V2 max: 99.7 cm/sec LV V1 max P.2 mmHg MR max P.7 mmHg PA V2 mean: 61.8 cm/sec LV V1 mean P.1 mmHg MR mean farzaneh: 413.4 cm/sec LV V1 mean: 49.4 cm/sec MR mean P.9 mmHg LV V1 VTI: 14.4 cm MR VTI: 160.7 cm PI dec slope: 299.7 cm/sec2 TR max farzaneh: 268.5 cm/sec TR max P.8 mmHg ECHO/Echo Complete W/ Contrast Interpretation Summary The estimated ejection fraction is 45-50 %. In comparison to previous echo mildly reduced LV systolic function. No significant valvular abnormality No pericardial effusion. Ordering Physician: Washington Damico Referring Physician: Becky Mcknight Performed By: Katie Zaragoza, CINDY, RVT 01/08/25 1250 Date _ Richard White MD CC: Dr. Danial Salazar DO; Dr. Washington Damico DO; ERIN GRANT ~ Date Dictated: 01/08/25728 Date Transcribed: 01/08/25 125 Almond Paste Molder: Signed [facility] Work Phone: Eosinophil percentageOrdered By: Washington Damico on 01-08-2025 Eosinophils/100 WBC (Bld) 2.5 % 0-5 [facility] Erythrocyte distribution wid th ratioOrdered By: Washington Damico on 01-08-2025 Erythrocyte distribution width (RBC) [Ratio] 14.1 % 11.6-14.6 [facility] Erythrocyte distribution wid th standard deviationOrdered By: Washington Damico on 01-08-2025 Erythrocyte distribution width (RBC) [Ratio] 45.5 fl High 35.1-43.9 [facility] Glomerular filtration rate ( GFR) estimation/1.73 sq m using serum, plasma, or whole bOrdered By: Washington Damico on 01-08-2025 GFR/1.73 sq M.predicted among non-blacks MDRD (S/P/Bld) [Vol rate/Area] 85 mL/min/{1.73_m2} >60 [facility] Comment on above: mL/min/1.73m2 CKD-EP I Creatinine Equation (2020) Hematocrit Auto (Bld) [Volum e fraction]Ordered By: Washington Damico on 01-08-2025 Hematocrit (Bld) [Volume fraction] 39.5 % 37-47 [facility] Hemoglobin measurementOrdere d By: Washington Damico on 01-08-2025 Hemoglobin (Bld) [Mass/Vol] 13.0 g/dL 12.0-15.0 [facility] Immature granulocytes/100 WB C Auto (Bld)Ordered By: Washington Damico on 01-08-2025 Immature granulocytes/100 WBC (Bld) 0.200 % 0.0-0.9 [facility] Comment on above: IG% - Immature Granu locytes (promyelocytes, myelocytes and metamyelocytes) > 1% indicates that a LEFT SHIFT is Present. MCV (mean corpuscular volume ) determinationOrdered By: Washington Damico on 01-08-2025 MCV (RBC) [Entitic vol] 89.0 fL 81-99 [facility] Magnesiumon 01-08-2025 Magnesium [Mass/Vol] 2.0 mg/dL Normal 1.5-2.2 [facility] Comment on above: Performed By: #### L 852.1232 #### [facility] [place], [address] Magnesium measurement (mass/ volume)Ordered By: Andre Almaguer on 01-08-2025 Magnesium (Unsp spec) [Mass/Vol] 2.0 mg/dL 1.5-2.2 [facility] Mean corpuscular hemoglobin (MCH) determinationOrdered By: Washington Damico on 01-08-2025 MCH (RBC) [Entitic mass] 29.3 pg 27.0-32.0 [facility] Mean corpuscular hemoglobin concentration (MCHC) determinationOrdered By: Washington Damico on 01-08-2025 MCHC (RBC) [Mass/Vol] 32.9 g/dL 32-36 [facility] Mean platelet volume determi nationOrdered By: Washington Damico on 01-08-2025 Platelet mean volume (Bld) [Entitic vol] 9.5 fL 6.2-12.0 [facility] Monocyte percentageOrdered B y: Washington Damico on 01-08-2025 Monocytes/100 WBC (Bld) 9.1 % 0-10 [facility] Neutrophil percentageOrdered By: Washington Damico on 01-08-2025 Neutrophils/100 WBC (Bld) 51.0 % 47-70 [facility] Nucleated red blood cell per centageOrdered By: Washington Damico on 01-08-2025 Nucleated RBC/100 WBC (Bld) [Ratio] 0 % 0-5 [facility] Partial Thromboplast Timeon 01-08-2025 aPTT Coag (Bld) [Time] 48.2 s High 24.1-36.2 [facility] Comment on above: Performed By: #### L 300.4310 #### [facility] [address] [facility] [place], [address] aPTT Coag (Bld) [Time] 28.4 s Normal 24.1-36.2 [facility] Comment on above: Performed By: #### L 300.4310 #### [facility] [address] [place], [address] aPTT Coag (Bld) [Time] 72.1 s High 24.1-36.2 [facility] Comment on above: Performed By: #### L 300.4310 #### [facility] [address] [place], [address] aPTT Coag (Bld) [Time] 60.8 s High 24.1-36.2 [facility] Comment on above: Performed By: #### L 499.0043 #### [facility] [address] [place], [address] Platelet countOrdered By: Taqueria Damico on 01-08-2025 Platelets (Bld) [#/Vol] 236 10*3/uL 150-450 [facility] Potassium measurement (mass/ volume)Ordered By: Washington Damico on 01-08-2025 Potassium (Unsp spec) [Mass/Vol] 3.9 mmol/L 3.3-5.1 [facility] RBC Auto (Bld) [#/Vol]Ordere d By: Washington Damico on 01-08-2025 RBC (Bld) [#/Vol] 4.44 10*6/uL 4.2-5.4 [facility] Serum creatinine measurement (mass/volume)Ordered By: Washington Damico on 01-08-2025 Creatinine [Mass/Vol] 0.72 mg/dL 0.70-1.20 [facility] Serum glucose measurement (m ass/volume)Ordered By: Washington Damico on 01-08-2025 Glucose [Mass/Vol] 107 mg/dL High 70-99 [facility] Serum or plasma calcium valerio urement (mass/volume)Ordered By: Washington Damico on 01-08-2025 Calcium [Mass/Vol] 9.2 mg/dL 7.6-11.0 [facility] Serum or plasma urea nitroge n measurement (mass/volume)Ordered By: Washington Damico on 01-08-2025 Urea nitrogen [Mass/Vol] 17 mg/dL 4-19 [facility] Sodium levelOrdered By: Washington Damico on 01-08-2025 Sodium [Moles/Vol] 141 mmol/L 133-145 [facility] White blood cell (WBC) count Ordered By: Washington Damico on 01-08-2025 WBC (Bld) [#/Vol] 5.6 10*3/uL 4.4-11.0 [facility] 12 Lead EKGon 01-07-2025 12 Lead EKG [facility] Cardiovascular Services [address] [place] [address] 12 Lead EKG 01/08/25 0503 MR#: [id number] Acct: [id number] Name: RITIKA SANTANA Rep #: [id number] : 1945 79 From: Richard White MD Attending Dr: Dr. Danial Salazar DO Status : DIS IN Ordering Dr: Washington Damico DO Date: 01/07/25 Location: U Sex: F C Admitted: 01/07/25 Test Reason : PRE OP Blood Pressure : */* mmHG Vent. Rate : 96 BPM Atrial Rate : 96 BPM P-R Int : 154 ms QRS Dur : 78 ms QT Int : 328 ms P-R-T Axes : 69 9 184 degrees QTcB Int : 414 ms Sinus rhythm with Premature atrial complexes ST T wave abnormality, consider anterolateral ischemia Abnormal ECG When compared with ECG of 07-Jan-2025 16:45, MANUAL COMPARISON REQUIRED DATA IS UNCONFIRMED Confirmed by RICHARD WHITE ([id number]), script editor ANNA REID ([id number]) on 01/12/2025 8:14:06 AM Referred By: RED Confirmed By: RICHARD WHITE 01/12/25 0814 Date Richard White MD CC: Dr. Dainal Salazar, ; Dr. Washington Damico, ; ERIN GRANT Signed Normal [facility] 12 Lead EKG [facility] Cardiovascular Services [address] [place] [address] 12 Lead EKG 01/07/25 1035 MR#: [id number] Acct: [id number] Name: RITIKA SANTANA Rep #: [id number] : 1945 79 From: Richard White MD Attending Dr: Dr. Danial Salazar DO Status : DIS IN Ordering Dr: Houston Morales DO Date: 5 Location: U Sex: F C Admitted: 01/07/25 Test Reason : CP Blood Pressure : */* mmHG Vent. Rate : 78 BPM Atrial Rate : 78 BPM P-R Int : 136 ms QRS Dur : 90 ms QT Int : 410 ms P-R-T Axes : 59 14 68 degrees QTcB Int : 467 ms Normal sinus rhythm Nonspecific ST abnormality Abnormal ECG Confirmed by RICHARD WHITE ([id number]), script editor ANNA REID ([id number]) on 01/12/2025 8:05:28 AM Referred By: Confirmed By: RICHARD WHITE 01/12/25804 Date Richard White MD CC: Dr. Danial Salazar DO; Dr. Houston Morales DO; ERIN GRANT Signed Normal [facility] 12 Lead EKG [facility] Cardiovascular Services [address] [place] [address] 12 Lead EKG 01/07/25 1247 MR#: [id number] Acct: [id number] Name: RITIKA SANTANA Rep #: [id number] : 1945 79 From: Richard White MD Attending Dr: Dr. Danial Salazar DO Status : DIS IN Ordering Dr: Houston Morales DO Date: 5 Location: [facility] Sex: F C Admitted: 01/07/25 Test Reason : REPEAT Blood Pressure : */* mmHG Vent. Rate : 100 BPM Atrial Rate : 100 BPM P-R Int : 164 ms QRS Dur : 82 ms QT Int : 366 ms P-R-T Axes : 47 10 23 degrees QTcB Int : 472 ms Normal sinus rhythm Nonspecific ST and T wave abnormality Abnormal ECG Confirmed by RICHARD WHITE ([id number]), script editor ANNA REID ([id number]) on 01/12/2025 8:05:14 AM Referred By: Confirmed By: RICHARD WHITE 01/12/25804 Date Richard White MD CC: Dr. Danial Salazar DO; Dr. Houston Morales, DO; ERIN GRANT Signed Normal [facility] Absolute lymphocyte countOrd ered By: Houston Morales on 01-07-2025 Lymphocytes Auto (Unsp spec) [#/Vol] 1.56 10*3/uL 0.83-4.51 [facility] Absolute neutrophil countOrd ered By: Houston Morales on 01-07-2025 Neutrophils (Bld) [#/Vol] 3.5 10*3/uL 2.0-7.7 [facility] Activated partial thrombopla stin time (aPTT) in platelet poor plasma by coagulation aOrdered By: Houston Morales on 01-07-2025 aPTT Coag (PPP) [Time] 62.2 s High 24.1-36.2 [facility] aPTT Coag (PPP) [Time] 32.6 s 24.1-36.2 [facility] Anion gap in Serum or Plasma Ordered By: Houston Morales on 01-07-2025 Anion gap [Moles/Vol] 14 mmol/L 5-15 [facility] Automated blood erythrocyte countOrdered By: Houston Morales on 01-07-2025 RBC (Bld) [#/Vol] 4.66 10*6/uL Normal 4.2-5.4 [facility] Comment on above: Performed By: #### L 100.0100, L503.7505, L500.2500, L501.4021 #### [facility] [address] [place], [address] Automated blood hematocrit ( percentage)Ordered By: Houston Morales on 01-07-2025 Hematocrit (Bld) [Volume fraction] 41.6 % Normal 37-47 [facility] Comment on above: Performed By: #### L 100.0100, L503.7505, L500.2500, L501.4021 #### [facility] [address] [place], [address] Automated lymphocyte count a s percentage of total leukocytesOrdered By: Houston Morales on 01-07-2025 Lymphocytes/100 WBC Auto (Unsp spec) 26.7 % 19-41 [facility] BUN/creatinine ratioOrdered By: Houston Morales on 01-07-2025 Urea nitrogen/Creatinine [Mass ratio] 22.7 mg/mg High 10- [facility] Basic Metabolic Profile (BMP )on 01-07-2025 BUN/CRE 22.7 RATIO High 10-20 [facility] Comment on above: Performed By: #### L 100.0100, L503.7505, L500.2500, L501.4021 #### [facility] [address] [place], [address] ECRCL 49.33 ml/min Low 50-250 [facility] Comment on above: Performed By: #### L 100.0100, L503.7505, L500.2500, L501.4021 #### [facility] [address] [place], [address] GAP 14 Normal 5-15 [facility] Comment on above: Performed By: #### L 100.0100, L503.7505, L500.2500, L501.4021 #### [facility] [address] [place], [address] Potassium [Moles/Vol] 4.3 mmol/L Normal 3.3-5.1 [facility] Comment on above: Performed By: #### L 100.0100, L503.7505, L500.2500, L501.4021 #### [facility] [address] [place], [address] Basophil percentageOrdered B y: Houston Morales on 01-07-2025 Basophils/100 WBC (Bld) 0.9 % Normal 0-1 [facility] Comment on above: Performed By: #### L 100.0100, L503.7505, L500.2500, L501.4021 #### [facility] [address] [place], [address] CBC W/Diff, Automatedon 05-2 Absolute Lymph 1.56 X10 3/uL Normal 0.83-4.51 [facility] Comment on above: Performed By: #### L 100.0100, L503.7505, L500.2500, L501.4021 #### [facility] [address] [place], [address] Absolute Neut 3.5 X10 3/uL Normal 2.0-7.7 [facility] Comment on above: Performed By: #### L 100.0100, L503.7505, L500.2500, L501.4021 #### [facility] [address] [place], [address] IG% 0.200 Normal 0.0-0.9 [facility] Comment on above: Result Comment: IG% - Immature Granulocytes (promyelocytes, myelocytes and metamyelocytes) > 1% indicates that a LEFT SHIFT is Present. Performed By: #### L 100.0100, L503.7505, L500.2500, L501.4021 #### [facility] [address] [place], [address] Lymphocytes/100 WBC (Bld) 26.7 % Normal 19-41 [facility] Comment on above: Performed By: #### L 100.0100, L503.7505, L500.2500, L501.4021 #### [facility] [address] [place], [address] Nucleated RBC (Bld) [#/Vol] 0 10*3/uL Normal 0-5 [facility] Comment on above: Performed By: #### L 100.0100, L503.7505, L500.2500, L501.4021 #### [facility] [address] [place], [address] RDW SD 46.5 fl High 35.1-43.9 [facility] Comment on above: Performed By: #### L 100.0100, L503.7505, L500.2500, L501.4021 #### [facility] [address] [place], [address] Carbon dioxide, total [Moles /volume] in Central venous bloodOrdered By: Houston Morales on 01-07-2025 CO2 [Moles/Vol] 20.3 mmol/L Low 21.0-32.0 [facility] Comment on above: Performed By: #### L 100.0100, L503.7505, L500.2500, L501.4021 #### [facility] [address] [place], [address] Cardiology Visit Reporton Cardiology Visit Report [facility] [address] [place], [place] [address] OFFICE VISIT Date of Service: 01/07/25 MR#: [id number] Acct: [id number] Name: RITIKA SANTANA Rep #: [id number] : 1945 Provider: SHAWNEE Bright Age/Sex: 79/F Location[place] [facility] Status: Signed HPI HPI History of Present Illness Details: Patient was seen in office. Sent to the emergency room. No bill office appointment. Patient was seen by cardiology in the hospital. Intake Vital Signs 10/23/24 08:46 01/07/25 07:09 01/09/25 16:59 Height 5 ft 3 in 5 ft 3 in Weight: 153 lb BMI 27.1 BP 135/81 H Blood Pressure Location Lt brachial Position Sitting Respiration 18 Pulse 81 Pulse Source Monitor Pulse Oximetry (%) 9 Intake Visit Reasons: Increased HAMILTON, angina symptoms. Allergies ciprofloxacin (From Cipro) Adverse Reaction (Verified 01/07/25 10:20) Other ciprofloxacin HCl (From Cipro) Adverse Reaction (Verified 01/07/25 10:20) Other Medications ???Medication ???Instructions ???Recorded ???Confirmed ???Type cetirizine 10 mg capsule 10 mg PO DAILY allergies 03/29/14 01/07/25 History esomeprazole magnesium 20 mg 20 mg PO DAILY heartburn 10/24/23 01/07/25 History capsule,delayed release (Nexium) potassium chloride 20 mEq 20 meq PO DAILY #90 TABLETS 01/07/25 Rx tablet,extended release hydrochlorothiazide 25 mg tablet 25 mg PO DAILY #90 TABLETS 4 01/07/25 Rx diltiazem HCl 120 mg See Rx Instructions .Route 4 01/07/25 Rx capsule,extended release 24 hr .COMPLEX #90 caps apixaban 5 mg tablet (Eliquis) 5 mg PO BID afib #180 tabs 5 01/07/25 Rx benazepril 20 mg tablet See Rx Instructions .Route 5 01/07/25 Rx .COMPLEX #90 tabs Bacillus coagulans 10 billion cell 10 cell PO DAILY probiotic 01/0701/07/25 History capsule,delayed release (Probiotic (B. coagulans)) latanoprost (PF) 0.005 % eye drops 1 drp ophthalmic (eye) QDAY ocul ar 01/07/25 01/07/25 History pressure Have you fallen in the past year?: No PFSH Medical History Macular degeneration GERD (gastroesophageal reflux disease) Paroxysmal atrial fibrillation Essential hypertension Right atrial enlargement Atrial fibrillation HTN (hypertension) SOB (shortness of breath) Fatigue Hypokalemia Surgical History History of basal cell carcinoma excision History of bilateral cataract extraction breast cyst removal Family History Father Hypertension Mother Jeanette Gehrig's disease Brother CAD (coronary artery disease) Social History Smoking Status: Never smoker alcohol intake: never substance use type: does not use caffeine: Yes Type: coffee Number of servings: 1 what type of physical activity do you participate in: none seatbelt use: always do you feel safe at home: Yes Supplemental Info Supplemental Information Labs: No Data to Display Diagnostics: Echocardiogram Stress Test Nuclear Medicine Catheterization Lab Chest X-Ray Pulmonary: No Data to Display Past Visits: No Data to Display Assessment and Plan Assessment and Plan Orders: Orders 12 Lead EKG performed by [facility] 01/07/25 I48.0 - Paroxysmal atrial fibrillation Coding Level of Care Code No Charge Coding Level of Care Code No Charge Clinical Quality Measures Falls Risk Screening/Assistive Devices Have you fallen in the past year?: No 01/09/25 1700 Date Noe Demiter PA Cosigner Signature: Date (if applicable) CC: Normal [facility] Chest PA and Lateralon 01-07 Chest PA and Lateral [facility] Imaging Services [address] [place] [id number] Chest PA and Lateral MR#: [id number] Acct: [id number] Name: RITIKA SANTANA Rep #: [id number] : 1945 F 79 From: Donis rosas MD PCP: ERIN GRANT Status: REG ER Study: Chest PA and Lateral Date of Exam: 01/07/25 Exam# [id number] Ordering Dr: Houston Morales DO PROCEDURE: CHEST PA AND LATERAL 01/07/2025 REASON FOR EXAM: SOB TECHNIQUE: Frontal and lateral views of the chest. COMPARISON: None FINDINGS: Hardware: EKG electrodes are seen. Heart: Mild cardiomegaly. Tortuosity of the descending thoracic aorta. Mediastinum: The mediastinal contour is unremarkable. Lungs: Elevation of the right hemidiaphragm. Lungs are clear. Bones: Degenerative changes are identified within the thoracic spine. Increased kyphosis. Moderate-sized hiatal hernia. RAD/Chest PA and Lateral IMPRESSION: Mild cardiomegaly. The lungs are clear. Moderate-sized hiatal hernia. Reading Location: [place] [address] CC: Dr. Houston oMrales DO; ERIN GRANT Almond Paste Molder: Signed Normal [facility] Chloride assayOrdered By: Jamel Morales on 01-07-2025 Chloride [Moles/Vol] 104 mmol/L Normal 98-108 [facility] Comment on above: Performed By: #### L 100.0100, L503.7505, L500.2500, L501.4021 #### [facility] [address] [place], [address] Consultation - Cardiologyon 01-07-2025 Consultation - Cardiology [facility] Medical Records Department [address] [place] [address] Consultation - Cardiology 01/07/25 1642 MR#: [id number] Acct: [id number] Name: RITIKA SANTANA Rep #: [id number] : 1945 79 From: Richard White MD PCP: ERIN GRANT Status:ADM IN Location: [place] [address] HPI Consult Data Date of Consult: 01/07/25 HPI Narrative Reason for Consultation: Non-STEMI HPI Narrative: RITIKA SANTANA, is a 79 F who presents [facility] Medical History Macular degeneration GERD (gastroesophageal reflux disease) Paroxysmal atrial fibrillation Essential hypertension Right atrial enlargement Atrial fibrillation HTN (hypertension) SOB (shortness of breath) Fatigue Hypokalemia Home Medications ???Medication ???Instructions ???Recorded ???Last Taken ???Type cetirizine 10 mg capsule 10 mg PO DAILY 03/29/14 Unknown Hi story esomeprazole magnesium 20 mg 20 mg PO DAILY 10/24/23 Unknown Hi story capsule,delayed release (Nexium) potassium chloride 20 mEq 20 meq PO DAILY #90 TABLETS Unknown Rx tablet,extended release hydrochlorothiazide 25 mg tablet 25 mg PO DAILY #90 TABLETS 4 Unknown Rx diltiazem HCl 120 mg See Rx Instructions .Route 4 Unknown Rx capsule,extended release 24 hr .COMPLEX #90 caps apixaban 5 mg tablet (Eliquis) 5 mg PO BID afib #180 tabs 5 01/06/25 22:00 Rx 5 mg benazepril 20 mg tablet See Rx Instructions .Route 5 Unknown Rx .COMPLEX #90 tabs Bacillus coagulans 10 billion cell cell PO DAILY 01/07/25 Unknown H istory capsule,delayed release (Probiotic (B. coagulans)) latanoprost (PF) 0.005 % eye drops 1 drp ophthalmic (eye) QDAY 12/12 04/06 Unknown History Allergy/AdvReac Type Severity Reaction Status Date / Time ciprofloxacin (From Cipro) AdvReac Other Verified 01/07/25 10:20 ciprofloxacin HCl (From AdvReac Other Verified 01/07/25 10:20 Cipro) Family History Father Hypertension Mother Jeanette Gehrig's disease Brother CAD (coronary artery disease) Surgical History History of basal cell carcinoma excision History of bilateral cataract extraction breast cyst removal Social History Smoking Status: Never smoker alcohol intake: never substance use type: does not use caffeine: Yes Type: coffee Number of servings: 1 what type of physical activity do you participate in: none seatbelt use: always do you feel safe at home: Yes Physical Exam Cardio Cardio Narrative: 79-year-old female seen and evaluated in the ED Cardiac consultation requested for elevated high sensitive troponins/non-ST elevation TN. She had symptoms of palpitation with shortness of breath and generalized chest pain mainly described as diffuse chest discomfort with some radiation to the back and to both shoulders more prominent on the left side. Cardiac consultation requested as she has elevated high sensitive troponins with a clinical diagnosis of non-ST elevation TN. Patient has history of paroxysmal A-fib and she was on Cardizem as well she was in OAC with Eliquis As well she had been on lisinopril. Other medical problem include history of GERD and mild macular degeneration. And on previous echocardiogram noted she had right atrial enlargement and she had paroxysmal atrial fibrillation. Bedside evaluation she is comfortable she does not have any active chest pain at time of evaluation. On the manager monitoring showed underlying sinus rhythm. Cardiac exam essentially normal Chest clear to auscultation bilateral Cardiac care plan recommendations; 1. This patient has non-ST elevation TN with significant elevated high sensitive troponin more than 600. Started the patient on heparin Will continue with the Cardizem. Eliquis has been on hold She was given also low-dose aspirin 81 mg. Will start on statin. And will continue on her SAMUEL inhibitor benazepril. Will plan for echocardiographic evaluation to assess LV function. As well we will plan for cardiac catheterization/right radial artery approach with Which will be set up for tomorrow. Richard White MD,[facility] Risk Stratification Risk Stratification Applicable: Yes Age >/= 65: Yes >/= 3 CAD Risk Factors (HTN, HLD, DM, family hx of CAD, or current smoker): Yes (Hypertension) Aspirin Use in the Past 7 Days: Yes Severe Angina (>/= episodes in 24 hours): No EKG ST Changes >/= 0.5mm: No (No significant ST-T changes in the EKG) Positive Cardiac Marker: Yes (High sensitive troponin elevated more than 600) JUAN Risk Stratification Score: 4 JUAN % Risk: 20% Risk Objective Data Vital Signs: Vital Signs (more content not included)... Normal [facility] D-Dimer Quantitative (DVT/PE )on 01-07-2025 D-DIMER QUANT < 0.27 Low 0.27-0.49 [facility] Comment on above: Result Comment: NORM AL D-Dimer level (<0.50) indicates no DVT or PE. Performed By: #### L 288.5719 #### [facility] [address] [place], [address] Echo Complete W/ Contraston 01-07-2025 Echo Complete W/ Contrast [facility] [address] [place] [address] Echo Complete W/ Contrast 01/08/25 9930 MR#: [id number] Acct: [id number] Name: RITIKA SANTANA Rep #: [id number] : 1945 79 From: Richard White MD Attending Dr: Dr. Danial Salazar DO Status : ADM IN Ordering Dr: Washington Damico DO Date: 01/07/25 Location: [facility] Sex: F C Admitted: 01/07/25 Reason For Study Reason For Study: CHEST PAIN Procedure This was a 2D Doppler, Color Flow transthoracic echocardiogram. The study was technically difficult. Due to suboptimal imaging windows. Contrast injection was performed. Exam performed portable in patient room. Left Ventricle Normal left ventricle. The estimated ejection fraction is 45-50 %. Right Ventricle Normal right ventricle. Mitral Valve There is mild mitral annular calcification. Trivial mitral valve insufficiency. Tricuspid Valve Normal tricuspid valve. Aortic Valve Trisinus/trileaflet aortic valve. Pulmonic Valve The pulmonic valve is not well visualized. Great Vessels The aortic root is not well visualized. Pericardium/Pleural No pericardial effusion. Medication Diluted definity 3.0ml given slow IV push to enhance endocardial definition. MMode/2D Measurements Calculations LVIDd: 4.9 cm IVSd: 1.2 cm LAV(MOD-bp): 61.6 ml LVIDs: 3.8 cm LVPWd: 1.1 cm LAV(MOD-bp) Indexed: 35.7 ml/m2 RVDd: 2.6 cm FS: 21.7 % LAV(MOD-sp2): 54.2 ml LAV(MOD-sp4): 61.8 ml SV(MOD-sp4): 22.3 ml LVAd ap4: 20.2 cm2 LVAd ap2: 19.5 cm2 LVLd ap4: 7.0 cm LVLd ap2: 7.4 cm SI(MOD-sp4): 12.9 ml/m2 EDV(MOD-sp4): 48.5 ml EDV(MOD-sp2): 42.2 ml EDV(sp4-el): 49.7 ml EDV(sp2-el): 43.6 ml LVAs ap4: 14.3 cm2 LVAs ap2: 13.0 cm2 LVLs ap4: 6.3 cm LVLs ap2: 6.4 cm ESV(MOD-sp4): 26.2 ml ESV(MOD-sp2): 22.5 ml ESV(sp4-el): 27.6 ml ESV(sp2-el): 22.5 ml EF(MOD-sp4): 45.9 % EF(MOD-sp2): 46.7 % EF(sp4-el): 44.5 % SV(MOD-sp2): 19.7 ml SV(sp4-el): 22.2 ml LA A4 area: 21.1 cm2 SI(MOD-sp2): 11.4 ml/m2 LA dimension(2D): 4.3 cm TAPSE: 1.8 cm RA A4 area: 10.3 cm2 Time Measurements MV dec time: 0.17 sec Doppler Measurements Calculations MV E max farzaneh: 69.3 cm/sec Lat Peak E' Farzaneh: 7.3 cm/sec Med Peak E' Farzaneh: 5.2 cm/sec MV A max farzaneh: 103.7 cm/sec E/E' lat: 9.5 E/E' med: 13.4 MV E/A: 0.67 MV V2 max: 97.8 cm/sec MV P1/2t max farzaneh: 72.1 cm/sec Ao V2 max: 86.9 cm/sec MV max P.8 mmHg MV P1/2t: 48.5 msec Ao max P.0 mmHg MV V2 mean: 56.4 cm/sec MV dec slope: 435.7 cm/sec2 Ao V2 mean: 58.9 cm/sec MV mean P.4 mmHg Ao mean P.5 mmHg MV V2 VTI: 21.8 cm MVA(P1/2t): 4.5 cm2 Ao V2 VTI: 16.0 cm AV (velocity ratio): 0.90 LV V1 max: 74.3 cm/sec MR max farzaneh: 516.4 cm/sec PA V2 max: 99.7 cm/sec LV V1 max P.2 mmHg MR max P.7 mmHg PA V2 mean: 61.8 cm/sec LV V1 mean P.1 mmHg MR mean farzaneh: 413.4 cm/sec LV V1 mean: 49.4 cm/sec MR mean P.9 mmHg LV V1 VTI: 14.4 cm MR VTI: 160.7 cm PI dec slope: 299.7 cm/sec2 TR max farzaneh: 268.5 cm/sec TR max P.8 mmHg ECHO/Echo Complete W/ Contrast Interpretation Summary The estimated ejection fraction is 45-50 %. In comparison to previous echo mildly reduced LV systolic function. No significant valvular abnormality No pericardial effusion. Ordering Physician: Washington Damico Referring Physician: Becky Mcknight Performed By: Katie Zaragoza RDCS, RVT 01/08/25 1250 Date Richard White MD CC: Dr. Danial Salazar DO; Dr. Washington Damico DO; ERIN GRANT Date Dictated: 01/08/25728 Date Transcribed: 01/08/25 125 Almond Paste Molder: Signed Normal [facility] Emergency Department Summary on 01-07-2025 Emergency Department Summary [facility] Medical Records Department [address] [place] [address] Emergency Department Summary 01/07/25 MR#: [id number] Acct: [id number] Name: RITIKA SANTANA Rep #: [id number] : 1945 79 From: Houston Morales DO PCP: ERIN GRANT Status:ADM IN Location: [place] [id number] HPI History of Present Illness Chief Complaint: Shortness of Breath Narrative Narrative: Chief complaint and HPI: Episodic back pain. 79-year-old female with past medical history of atrial fibrillation on Eliquis, HTN presents for evaluation of episodic back pain. Patient states since last week she has been developing intermittent pain in her upper thoracic that radiates to her bilateral shoulders, bilateral arms, and neck when lying down in her bed at night. She states that she only has the pain when lying down in bed at night to sleep. She states if she sits up the pain resolves. Does not develop the pain throughout the day. Denies any true chest pain with the event. States that she has occasionally become short of breath with exertion. She has been taking all of her anticoagulation has not missed a dose. Currently asymptomatic. She denies any fever, chills, URI symptoms, abdominal pain, nausea, vomiting. Patient saw her tone artist apprentice for the complaint above in which they performed an EKG that showed nonspecific changes and sent her to the emergency department for further workup. Denies any lower extremity pain or swelling. Review of systems: See HPI Medications: As listed on the chart Allergies: As listed on the chart PFSH: Per chart Vital signs: As listed on the chart. Reviewed. Physical exam: Gen: A O x3, NAD Head: Normocephalic, atraumatic Eyes: No sclera icterus, conjunctiva clear ENT: Moist mucous membranes Neck: Trachea midline, No JVD, no carotid bruit, no midline spinal tenderness, full range of motion, mild tenderness to palpation of the paraspinal musculature of the right upper thoracic paraspinal musculature CV: RRR, no murmurs, no peripheral edema Resp: Lungs CTA BL, no w/r/c GI: Abd soft, non-distended, non-tender, no r/r/g Musc: Full ROM, no deformity other than kyphosis Skin: Warm, dry Neuro: Alert, oriented, grossly intact, sensation intact Psych: Cooperative, appropriate mood and affect [facility] Medical History Macular degeneration GERD (gastroesophageal reflux disease) Paroxysmal atrial fibrillation Essential hypertension Right atrial enlargement Atrial fibrillation HTN (hypertension) SOB (shortness of breath) Fatigue Hypokalemia Home Medications ???Medication ???Instructions ???Recorded ???Last Taken ???Type cetirizine 10 mg capsule 10 mg PO DAILY allergies 03/29/14 Unknown History esomeprazole magnesium 20 mg 20 mg PO DAILY heartburn 10/24/23 01/06/25 08:00 History capsule,delayed release (Nexium) potassium chloride 20 mEq 20 meq PO DAILY #90 TABLETS 01/06/25 22:00 Rx tablet,extended release hydrochlorothiazide 25 mg tablet 25 mg PO DAILY #90 TABLETS 4 01/06/25 Rx diltiazem HCl 120 mg See Rx Instructions .Route 4 Unknown Rx capsule,extended release 24 hr .COMPLEX #90 caps apixaban 5 mg tablet (Eliquis) 5 mg PO BID afib #180 tabs 5 01/06/25 22:00 Rx 5 mg benazepril 20 mg tablet See Rx Instructions .Route 5 01/06/25 22:00 Rx .COMPLEX #90 tabs Bacillus coagulans 10 billion cell 10 cell PO DAILY probiotic 01/07 Unknown History capsule,delayed release (Probiotic (B. coagulans)) latanoprost (PF) 0.005 % eye drops 1 drp ophthalmic (eye) QDAY ocul ar 01/07/25 01/06/25 22:00 History pressure Allergy/AdvReac Type Severity Reaction Status Date / Time ciprofloxacin (From Cipro) AdvReac Other Verified 01/07/25 10:20 ciprofloxacin HCl (From AdvReac Other Verified 01/07/25 10:20 Cipro) Family History Father Hypertension Mother Jeanette Gehrig's disease Brother CAD (coronary artery disease) Surgical History History of basal cell carcinoma excision History of bilateral cataract extraction breast cyst removal Social History Smoking Status: Never smoker alcohol intake: never substance use type: does not use caffeine: Yes Type: coffee Number of servings: 1 what type of physical activity do you participate in: none seatbelt use: always do you feel safe at home: Yes EXAM Physical Exam Const Vital Signs: 01/07/25 10:17 01/07/25 10:17 01/07/25 12:17 Temperature 97.7 F L Temperature Source Oral Pulse Rate 86 75 Respiratory Rate 16 23 H Respiratory Effort Normal Non-L (more content not included)... Normal [facility] Eosinophil percentageOrdered By: Houston Morales on 01-07-2025 Eosinophils/100 WBC (Bld) 1.5 % Normal 0-5 [facility] Comment on above: Performed By: #### L 100.0100, L503.7505, L500.2500, L501.4021 #### [facility] [address] [place], [place], [id number] Erythrocyte distribution wid th ratioOrdered By: Houston Morales on 01-07-2025 Erythrocyte distribution width (RBC) [Ratio] 14.4 % Normal 11.6-14.6 [facility] Comment on above: Performed By: #### L 100.0100, L503.7505, L500.2500, L501.4021 #### [facility] [address] [facility] [place], [place], [id number] Erythrocyte distribution wid th standard deviationOrdered By: Houston Mustafa on 01-07-2025 Erythrocyte distribution width (RBC) [Ratio] 46.5 fl High 35.1-43.9 [facility] Glomerular filtration rate ( GFR) estimation/1.73 sq m using serum, plasma, or whole bOrdered By: Houston Morales on 01-07-2025 GFR/1.73 sq M.predicted among non-blacks MDRD (S/P/Bld) [Vol rate/Area] 67 mL/min/{1.73_m2} Normal >60 [facility] Comment on above: mL/min/1.73m2 CKD-EP I Creatinine Equation (2020) Result Comment: mL/m in/1.73m2 CKD-EPI Creatinine Equation (2020) Performed By: #### L 100.0100, L503.7505, L500.2500, L501.4021 #### [facility] [address] [place], [address] H AND P Exam - Hospitaliston 01-07-2025 H&P Exam - Hospitalist [facility] Medical Records Department [address] [place] [address] H P Exam - Hospitalist 01/07/25 1316 MR#: [id number] Acct: [id number] Name: RITIKA SANTANA Rep #: [id number] : 1945 79 From: Washington Damico DO PCP: ERIN GRANT Status:REG ER Location: ED HPI - General General Date of Service: 01/07/25 Chief Complaint: Shortness of breath HPI Narrative RITIKA SANTANA, is a 79 F who presents with shortness of breath. This is a 79-year-old female with A-fib that is presenting with shortness of breath. Symptoms began a week ago and was primarily noted at night when she would lay down. She would also have discomfort into her shoulders and neck and through to her back. Denied any chest pain. To get short of breath with exertion. Over this past week, her symptoms have gotten better. 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 She had an EKG that was normal sinus rhythm but did have some subtle T wave inversions in inferior leads. And her cardiac enzymes came back at 656. Cardiology was notified and saw the patient and tentative plan is for a cardiac catheterization on the . Patient has never had a myocardial infarction before. [facility] Medical History Macular degeneration GERD (gastroesophageal reflux disease) Paroxysmal atrial fibrillation Essential hypertension Right atrial enlargement Atrial fibrillation HTN (hypertension) SOB (shortness of breath) Fatigue Hypokalemia Home Medications ???Medication ???Instructions ???Recorded ???Last Taken ???Type cetirizine 10 mg capsule 10 mg PO DAILY 03/29/14 Unknown Hi story esomeprazole magnesium 20 mg 20 mg PO DAILY 10/24/23 Unknown Hi story capsule,delayed release (Nexium) potassium chloride 20 mEq 20 meq PO DAILY #90 TABLETS Unknown Rx tablet,extended release hydrochlorothiazide 25 mg tablet 25 mg PO DAILY #90 TABLETS 4 Unknown Rx diltiazem HCl 120 mg See Rx Instructions .Route 4 Unknown Rx capsule,extended release 24 hr .COMPLEX #90 caps apixaban 5 mg tablet (Eliquis) 5 mg PO BID #180 tabs 11/04/24 Unk nown Rx benazepril 20 mg tablet See Rx Instructions .Route 5 Unknown Rx .COMPLEX #90 tabs Bacillus coagulans 10 billion cell cell PO DAILY 01/07/25 Unknown H istory capsule,delayed release (Probiotic (B. coagulans)) latanoprost (PF) 0.005 % eye drops 1 drp ophthalmic (eye) QDAY 12/12 04/06 Unknown History Allergy/AdvReac Type Severity Reaction Status Date / Time ciprofloxacin (From Cipro) AdvReac Other Verified 01/07/25 10:20 ciprofloxacin HCl (From AdvReac Other Verified 01/07/25 10:20 Cipro) Family History Father Hypertension Mother Jeanette Gehrig's disease Brother CAD (coronary artery disease) Surgical History History of basal cell carcinoma excision History of bilateral cataract extraction breast cyst removal Social History Smoking Status: Never smoker alcohol intake: never substance use type: does not use caffeine: Yes Type: coffee Number of servings: 1 what type of physical activity do you participate in: none seatbelt use: always do you feel safe at home: Yes ROS ROS Narrative Denies chest pain, nausea vomiting, diaphoresis, Lower extremity edema. All review of systems were negative except as mentioned above in the history of present illness and the other review of systems. Vital Signs Vital Signs Vital Signs: 01/07/25 10:17 01/07/25 10:17 01/07/25 12:17 Temperature 36.5 C L Temperature Source Oral Pulse Rate 86 75 Respiratory Rate 16 23 H Respiratory Effort Normal Non-Labored Respiratory Depth Normal Respiratory Pattern Normal Blood Pressure 152/82 H 136/69 H Blood Pressure Mean 105 91 Pulse Ox 100 100 Oxygen Delivery Method Room Air Room Air Weight Weight: 69.672 kg Body Mass Index (BMI) 27.1 Physical Exam Const alert and no apparent distress Constitutional Narrative: Kyphotic posture. General Appearance: cooperative and uncooperative HEENT normocephalic and head/scalp atraumatic Eyes Eyes Narrative: No icterus Neck no lymphadenopathy Neck Narrative: No thyromegaly Resp normal respiratory effort, no retractions, no use of accessory muscles and clear to auscultation bilaterally Cardio regular rate, regular rhythm, S1 normal heart sound and S2 normal heart sound GI normal to inspection, nondistended, normoactive bowel sounds, soft to palpation, non-tender and non- distended Extremity normal to inspection (more content not included)... Normal [facility] Hemoglobin measurementOrdere d By: Houston Morales on 01-07-2025 Hemoglobin (Bld) [Mass/Vol] 13.6 g/dL Normal 12.0-15.0 [facility] Comment on above: Performed By: #### L 100.0100, L503.7505, L500.2500, L501.4021 #### [facility] [address] [facility]. [place], [place], [address] Immature granulocytes/100 WB C Auto (Bld)Ordered By: Houston Morales on 01-07-2025 Immature granulocytes/100 WBC (Bld) 0.200 % 0.0-0.9 [facility] Comment on above: IG% - Immature Granu locytes (promyelocytes, myelocytes and metamyelocytes) > 1% indicates that a LEFT SHIFT is Present. International normalized rat io (INR) calculationOrdered By: Houston Morales on 01-07-2025 INR Coag (Bld) [Relative time] 1.1 {INR} [facility] L499.0042on 01-07-2025 Trop T High Sen 617 ng/L Invalid Interpretation Code <=14 [facility] Comment on above: Result Comment: Crit ical Result(s) Called to Lorraine FALL (ER): by Deirdre:??Results read back by same. Performed By: #### L 300.4310 #### [facility] [address] [place], [address] L499.0043on 01-07-2025 Trop T High Sen 573 ng/L Invalid Interpretation Code <=14 [facility] Comment on above: Result Comment: Crit ical Result(s) Called to Bertin FALL ([facility]): Stoner:??Results read back by same. Performed By: #### L 499.0043 #### [facility] [address] [place], [address] L501.4021on 01-07-2025 Trop T High Sen 656 ng/L Invalid Interpretation Code <=14 [facility] Comment on above: Result Comment: Crit ical Result(s) Called at: 01/07/2025-11:54 by: Lacho Moscoso to Alejandra Peace.??Results read back by same. Performed By: #### L 100.0100, L503.7505, L500.2500, L501.4021 #### [facility] [address] [place], [address] L503.7505on 01-07-2025 Natriuretic peptide B (Bld) [Mass/Vol] 1762 pg/mL Normal <=1800 [facility] Comment on above: Result Comment: Hear t Failure Unlikely: < 300 pg/mL Heart Failure Likely < 50 Years: > 450 pg/mL 50-75 Years: > 900 pg/mL >75 Years: > 1800 pg/mL Performed By: #### L 100.0100, L503.7505, L500.2500, L501.4021 ####[facility] [address] [place], [address] MCV (mean corpuscular volume ) determinationOrdered By: Houston Morales on 01-07-2025 MCV (RBC) [Entitic vol] 89.3 fL Normal 81-99 [facility] Comment on above: Performed By: #### L 100.0100, L503.7505, L500.2500, L501.4021 #### [facility] [address] [place], [address] Mean corpuscular hemoglobin (MCH) determinationOrdered By: Houston Morales on 01-07-2025 MCH (RBC) [Entitic mass] 29.2 pg Normal 27.0-32.0 [facility] Comment on above: Performed By: #### L 100.0100, L503.7505, L500.2500, L501.4021 #### [facility] [address] [place], [address] Mean corpuscular hemoglobin concentration (MCHC) determinationOrdered By: Houston Morales on 01-07-2025 MCHC (RBC) [Mass/Vol] 32.7 g/dL Normal 32-36 [facility] Comment on above: Performed By: #### L 100.0100, L503.7505, L500.2500, L501.4021 #### [facility] [address] [place], [address] Mean platelet volume determi nationOrdered By: Houston Morales on 01-07-2025 Platelet mean volume (Bld) [Entitic vol] 9.8 fL Normal 6.2-12.0 [facility] Comment on above: Performed By: #### L 100.0100, L503.7505, L500.2500, L501.4021 #### [facility] [address] [place], [address] Monocyte percentageOrdered B y: Houston Morales on 01-07-2025 Monocytes/100 WBC (Bld) 10.3 % High 0-10 [facility] Comment on above: Performed By: #### L 100.0100, L503.7505, L500.2500, L501.4021 #### [facility] [address] [place], [address] Natriuretic peptide.B prohor ami N-Terminal [Mass/volume] in Serum or PlasmaOrdered By: Houston Morales on 01-07-2025 Natriuretic peptide.B prohormone N-Terminal [Mass/Vol] 1762 pg/mL <1800 [facility] Comment on above: Heart Failure Unlike ly: < 300 pg/mLHeart Failure Likely< 50 Years: > 450 pg/mL50-75 Years: > 900 pg/mL>75 Years: > 1800 pg/mL Neutrophil percentageOrdered By: Houston Morales on 01-07-2025 Neutrophils/100 WBC (Bld) 60.4 % Normal 47-70 [facility] Comment on above: Performed By: #### L 100.0100, L503.7505, L500.2500, L501.4021 #### [facility] [address] [place], [address] Nucleated red blood cell per centageOrdered By: Houston Morales on 01-07-2025 Nucleated RBC/100 WBC (Bld) [Ratio] 0 % 0-5 [facility] Partial Thromboplast Timeon 01-07-2025 aPTT Coag (Bld) [Time] 62.2 s High 24.1-36.2 [facility] Comment on above: Performed By: #### L 499.0043 #### [facility] [address] [place], [address] aPTT Coag (Bld) [Time] 32.6 s Normal 24.1-36.2 [facility] Comment on above: Performed By: #### L 300.4310 #### [facility] [address] [place] [place], [address] Platelet countOrdered By: Jamel Morales on 01-07-2025 Platelets (Bld) [#/Vol] 247 10*3/uL Normal 150-450 [facility] Comment on above: Performed By: #### L 100.0100, L503.7505, L500.2500, L501.4021 #### [facility] [address] [place], [address] Potassium measurement (mass/ volume)Ordered By: Houston Morales on 01-07-2025 Potassium (Unsp spec) [Mass/Vol] 4.3 mmol/L 3.3-5.1 [facility] Prothrombin Time w/INRon INR Coag (PPP) [Relative time] 1.1 {INR} Normal [facility] Comment on above: Performed By: #### L 300.4310 #### [facility] [address] [place], [address] Prothrombin timeOrdered By: Houston Morales on 01-07-2025 PT Coag (PPP) [Time] 14.2 s Normal 11.7-14.9 [facility] Comment on above: Performed By: #### L 300.4310 #### [facility] [address] [place] [place], [address] Serum creatinine measurement (mass/volume)Ordered By: Houston Morales on 01-07-2025 Creatinine [Mass/Vol] 0.88 mg/dL Normal 0.70-1.20 [facility] Comment on above: Performed By: #### L 100.0100, L503.7505, L500.2500, L501.4021 #### [facility] [address] [place], [address] Serum glucose measurement (m ass/volume)Ordered By: Houston Morales on 01-07-2025 Glucose [Mass/Vol] 101 mg/dL High 70-99 [facility] Comment on above: Performed By: #### L 100.0100, L503.7505, L500.2500, L501.4021 #### [facility] [address] [place], [address] Serum or plasma calcium valerio urement (mass/volume)Ordered By: Houston Mustafa on 01-07-2025 Calcium [Mass/Vol] 9.5 mg/dL Normal 7.6-11.0 [facility] Comment on above: Performed By: #### L 100.0100, L503.7505, L500.2500, L501.4021 #### [facility] [address] [place], [address] Serum or plasma urea nitroge n measurement (mass/volume)Ordered By: Houston Morales on 01-07-2025 Urea nitrogen [Mass/Vol] 20 mg/dL High 4-19 [facility] Comment on above: Performed By: #### L 100.0100, L503.7505, L500.2500, L501.4021 #### [facility] [address] [place], [address] Sodium levelOrdered By: Diogenes Morales on 01-07-2025 Sodium [Moles/Vol] 138 mmol/L Normal 133-145 [facility] Comment on above: Performed By: #### L 100.0100, L503.7505, L500.2500, L501.4021 #### [facility] [address] [place], [address] Troponin T.cardiac [Mass/vol ume] in Serum or Plasma by High sensitivity methodOrdered By: Washington Damico on 01-07-2025 Troponin T.cardiac High sensitivity method [Mass/Vol] 573 ng/L High <14 [facility] Comment on above: Critical Result(s) C alled to Bertin FALL ([facility]): Carla: Results read back by same. Troponin T.cardiac [Mass/vol ume] in Serum or Plasma by High sensitivity methodOrdered By: Houston Morales on 01-07-2025 Troponin T.cardiac High sensitivity method [Mass/Vol] 617 ng/L High <14 [facility] Comment on above: Critical Result(s) C alled to Lorraine FALL (ER): by Deirdre: Results read back by same. Troponin T.cardiac High sensitivity method [Mass/Vol] 656 ng/L High <14 [facility] Comment on above: Critical Result(s) C alled at: 01/07/2025-11:54 by: Lacho Moscoso to Alejandra Peace. Results read back by same. White blood cell (WBC) count Ordered By: Houston Morales on 01-07-2025 WBC (Bld) [#/Vol] 5.8 10*3/uL Normal 4.4-11.0 [facility] Comment on above: Performed By: #### L 100.0100, L503.7505, L500.2500, L501.4021 #### [facility] [address] [place], [address] Cardiology Visit Reporton Cardiology Visit Report [facility] [address] [place], [place] [address] OFFICE VISIT Date of Service: 10/23/24 MR#: [id number] Acct: [id number] Name: RITIKA SANTANA Rep #: [id number] : 1945 Provider: SHAWNEE Fatima Age/Sex: 79/F Location[place] [facility] Status: Signed HPI HPI History of Present Illness Details: Ritika Santana is a 79-year-old white female who presents today for outpatient cardiovascular follow-up with history of paroxysmal atrial fibrillation and hypertension. From a cardiac standpoint, patient is doing well. She does not have any chest discomfort/heaviness/ tightness. Her exercise tolerance is stable for her age. She does not have any worsening symptoms of shortness of breath. She does not have any orthopnea. She denies PND. She does not have any symptoms of congestive heart failure. She does not have any palpitations that she is aware of. She does not have any lightheadedness or dizziness. She does not have any near- syncope or syncope. She does not have any lower extremity edema. She does not have any symptoms of claudication. Intake Vital Signs 10/24/23 10:46 10/23/24 08:46 10/23/24 13:48 Height 5 ft 3 in 5 ft 3 in Weight: 153 lb 153 lb BMI 27.1 27.1 BP 146/84 H 146/85 H 140/80 H Blood Pressure Location Lt brachial Lt brachial Position Sitting Sitting Respiration 18 18 Pulse 88 94 Pulse Source Monitor Monitor Pulse Oximetry (%) 99 98 Intake Visit Reasons: 1 Y FU/PREV PFM Medical Psychotherapist Required: No Is patient in pain?: No Allergies ciprofloxacin (From Cipro) Adverse Reaction (Verified 10/23/24 13:15) Other ciprofloxacin HCl (From Cipro) Adverse Reaction (Verified 10/23/24 13:15) Other Medications ???Medication ???Instructions ???Recorded ???Confirmed ???Type cetirizine 10 mg capsule 10 mg PO DAILY 03/29/14 10/23/24 H istory apixaban 5 mg tablet (Eliquis) 5 mg PO BID #180 tabs 10/12/23 Rx esomeprazole magnesium 20 mg 20 mg PO DAILY 10/24/23 10/23/24 H istory capsule,delayed release (Nexium) potassium chloride 20 mEq 20 meq PO DAILY #90 TABLETS 10/23/24 Rx tablet,extended release benazepril 20 mg tablet See Rx Instructions .Route 4 10/23/24 Rx .COMPLEX #90 tabs hydrochlorothiazide 25 mg tablet 25 mg PO DAILY #90 TABLETS 4 10/23/24 Rx diltiazem HCl 120 mg See Rx Instructions .Route 4 10/23/24 Rx capsule,extended release 24 hr .COMPLEX #90 caps Ejection fraction %: 55 Have you fallen in the past year?: No [facility] Medical History (Updated 10/23/24 @ 13:42 by Layla Silver PA, PA) Macular degeneration GERD (gastroesophageal reflux disease) Paroxysmal atrial fibrillation Essential hypertension Right atrial enlargement Atrial fibrillation HTN (hypertension) SOB (shortness of breath) Fatigue Hypokalemia Surgical History History of basal cell carcinoma excision History of bilateral cataract extraction breast cyst removal Family History Father Hypertension Mother Jeanette Watkins's disease Brother CAD (coronary artery disease) Social History Smoking Status: Never smoker alcohol intake: never substance use type: does not use caffeine: Yes Type: coffee Number of servings: 1 what type of physical activity do you participate in: none seatbelt use: always do you feel safe at home: Yes ROS Const Const: Negative for fatigue, weakness, headache(s) or frequent falls Eyes Eyes: Negative for blurry vision ENT ENT: Negative for headache(s), dizziness or Nosebleed/epistaxis Cardio Chest Pain: No Palpitations: No Edema: None Muscle aches with walking: None Resp Respiratory: Negative for SOB with activity, SOB at rest or SOB orthopnea SOB lying down GI GI: Negative nausea, vomiting, heartburn, bright, red blood in stools or black,tarry stools : Negative for hematuria Neuro Neuro: Negative for dizziness, lightheadedness, near syncope, syncope, frequent falls, headache(s), weakness or blurry vision Endo Endo: Negative for fatigue Cardiology Exam Const Appearance: cooperative, healthy appearing, comfortable, no acute distress and well developed Orientation: alert, awake and oriented x3 Head Head: normal to inspection Ears: hearing grossly normal bilaterally Nose: external nose normal Face and Sinus: face symmetric Mouth: oral mucosae normal, lip normal and moist mucous membranes Eyes General: appearance normal, both eyes and all related structures Eyelids: eyelids normal Conjunctivae: conjunctivae normal Pupils: PERRL EOM: EOM intact bilaterally Neck (more content not included)... Normal [facility] .GFRon 10-02-2023 GFR 79 ml/min/1.73sqm Normal [facility] ([place]) Comment on above: Result Comment: GFR Population mean for , Non- Americans Ages 20-29 = 116 mL/min/1.73 sq.m. Ages 30-39 = 107 mL/min/1.73 sq.m. Ages 40-49 = 99 mL/min/1.73 sq.m. Ages 50-59 = 93 mL/min/1.73 sq.m. Ages 60-69 = 85 mL/min/1.73 sq.m. Ages 70+ = 75 mL/min/1.73 sq.m. Chronic Kidney Disease: Less than 60 mL/min/1.73 square meters End Stage Renal Disease: Less than 15 mL/min/1.73 square meters Performed By: #### V IDH, LIPID, GFR, CMP #### [address] [address] GFR Non- 65 ml/min/1.73sqm Normal [facility] ([place]) Comment on above: Result Comment: GFR Population mean for , Non- Americans Ages 20-29 = 116 mL/min/1.73 sq.m. Ages 30-39 = 107 mL/min/1.73 sq.m. Ages 40-49 = 99 mL/min/1.73 sq.m. Ages 50-59 = 93 mL/min/1.73 sq.m. Ages 60-69 = 85 mL/min/1.73 sq.m. Ages 70+ = 75 mL/min/1.73 sq.m. Chronic Kidney Disease: Less than 60 mL/min/1.73 square meters End Stage Renal Disease: Less than 15 mL/min/1.73 square meters Performed By: #### V IDH, LIPID, GFR, CMP #### [address] [address] CMPon 10-02-2023 Albumin Level 3.6 G/dL Normal 3.4-4.8 [facility] ([place]) Comment on above: Performed By: #### V IDH, LIPID, GFR, CMP #### [address] [address] Albumin/Globulin [Mass ratio] 1.0 {ratio} Low 1.1-2.5 [facility] ([place]) Comment on above: Performed By: #### V IDH, LIPID, GFR, CMP #### [id number] [place], [place] [address] ALP [Catalytic activity/Vol] 100 U/L Normal 40-135 [facility] ([place]) Comment on above: Performed By: #### V IDH, LIPID, GFR, CMP #### [address] [address] ALT [Catalytic activity/Vol] 20 U/L Normal 14-59 [facility] ([place]) Comment on above: Performed By: #### V IDH, LIPID, GFR, CMP #### [address] [address] AST [Catalytic activity/Vol] 12 U/L Normal 10-40 [facility] ([place]) Comment on above: Performed By: #### V IDH, LIPID, GFR, CMP #### [address] [address] Bili Total 0.5 mg/dL Normal 0.2-1.0 [facility] ([place]) Comment on above: Result Comment: Use of this assay is not recommended for patients undergoing treatment with eltrombopag due to the potential for falsely elevated results. Performed By: #### V IDH, LIPID, GFR, CMP #### [address] [address] BUN/Creatinine Ratio 20 ratio Normal 7-27 [facility] ([place]) Comment on above: Performed By: #### V IDH, LIPID, GFR, CMP #### [address] [address] Calcium [Mass/Vol] 9.5 mg/dL Normal 8.4-10.2 [facility] ([place]) Comment on above: Performed By: #### V IDH, LIPID, GFR, CMP #### [address] [address] Chloride [Moles/Vol] 104 mmol/L Normal 98-107 [facility] ([place]) Comment on above: Performed By: #### V IDH, LIPID, GFR, CMP #### [address] [address] CO2 [Moles/Vol] 27 mmol/L Normal 23-31 [facility] ([place]) Comment on above: Performed By: #### V IDH, LIPID, GFR, CMP #### [address] [address] Creatinine [Mass/Vol] 0.85 mg/dL Normal 0.55-1.02 [facility] ([place]) Comment on above: Performed By: #### V IDH, LIPID, GFR, CMP #### [address] [address] Electrolyte Balance 8.0 mEq/L Normal 4.0-15.0 [facility] ([place]) Comment on above: Performed By: #### V IDH, LIPID, GFR, CMP #### [address] [address] Globulin 3.5 G/dL Normal [facility] ([place]) Comment on above: Performed By: #### V IDH, LIPID, GFR, CMP #### [address] [address] Glucose [Mass/Vol] 115 mg/dL High 83-110 [facility] ([place]) Comment on above: Performed By: #### V IDH, LIPID, GFR, CMP #### [address] [address] Potassium [Moles/Vol] 4.5 mmol/L Normal 3.5-5.1 [facility] ([place]) Comment on above: Performed By: #### V IDH, LIPID, GFR, CMP #### [address] [address] Sodium [Moles/Vol] 139 mmol/L Normal 136-145 [facility] ([place]) Comment on above: Performed By: #### V IDH, LIPID, GFR, CMP #### [address] [address] Total Protein 7.1 G/dL Normal 6.4-8.2 [facility] ([place]) Comment on above: Performed By: #### V IDH, LIPID, GFR, CMP #### [address] [address] Urea nitrogen [Mass/Vol] 17 mg/dL Normal 7-18 [facility] ([place]) Comment on above: Performed By: #### V IDH, LIPID, GFR, CMP #### [address] [address] LABORATORYOrdered By: SYSTEM SYSTEM on 10-02-2023 25-hydroxyvitamin D3 [Mass/Vol] 53.8 ng/mL Invalid Interpretation Code AO ADM SS Comment on above: Interpretive Data: I nterpretive Values Based on Total 25(OH) Vitamin D: Deficient <20 ng/mL Insufficient 20 - <30 ng/mL Sufficient 30-100 ng/mL Albumin BCP dye [Mass/Vol] 3.6 G/dL Normal 3.4 - 4.8 G/dL AO ADM SS Albumin/Globulin [Mass ratio] 1.0 {ratio} Low 1.1 - 2.5 ratio AO ADM SS ALP [Catalytic activity/Vol] 100 U/L Normal 40 - 135 U/L AO ADM SS ALT With P-5'-P [Catalytic activity/Vol] 20 U/L Normal 14 - 59 U/L AO ADM SS AST With P-5'-P [Catalytic activity/Vol] 12 U/L Normal 10 - 40 U/L AO ADM SS Bilirubin [Mass/Vol] 0.5 mg/dL Normal 0.2 - 1 .0 mg/dL AO ADM SS Comment on above: Interpretive Data: U se of this assay is not recommended for patients undergoing treatment with eltrombopag due to the potential for falsely elevated results. Calcium [Mass/Vol] 9.5 mg/dL Normal 8.4 - 10. 2 mg/dL AO ADM SS Chloride [Moles/Vol] 104 mmol/L Normal 98 - 10 7 mmol/L AO ADM SS CO2 [Moles/Vol] 27 mmol/L Normal 23 - 31 mmol/L AO ADM SS Creatinine [Mass/Vol] 0.85 mg/dL Normal 0.55 - 1.02 mg/dL AO ADM SS Electrolyte Balance 8.0 mEq/L Normal 4.0 - 15 .0 mEq/L AO ADM SS GFR/1.73 sq M.predicted among blacks MDRD (S/P/Bld) [Vol rate/Area] 79 ml/min/1.73sqm Invalid Interpretation Code AO Chemistry S Comment on above: Interpretive Data: GFR Population mean for , Non- Americans Ages 20-29 = 116 mL/min/1.73 sq.m. Ages 30-39 = 107 mL/min/1.73 sq.m. Ages 40-49 = 99 mL/min/1.73 sq.m. Ages 50-59 = 93 mL/min/1.73 sq.m. Ages 60-69 = 85 mL/min/1.73 sq.m. Ages 70+ = 75 mL/min/1.73 sq.m. Chronic Kidney Disease: Less than 60 mL/min/1.73 square meters End Stage Renal Disease: Less than 15 mL/min/1.73 square meters GFR/1.73 sq M.predicted among non-blacks MDRD (S/P/Bld) [Vol rate/Area] 65 ml/min/1.73sqm Invalid Interpretation Code AO Chemistry S Comment on above: Interpretive Data: GFR Population mean for , Non- Americans Ages 20-29 = 116 mL/min/1.73 sq.m. Ages 30-39 = 107 mL/min/1.73 sq.m. Ages 40-49 = 99 mL/min/1.73 sq.m. Ages 50-59 = 93 mL/min/1.73 sq.m. Ages 60-69 = 85 mL/min/1.73 sq.m. Ages 70+ = 75 mL/min/1.73 sq.m. Chronic Kidney Disease: Less than 60 mL/min/1.73 square meters End Stage Renal Disease: Less than 15 mL/min/1.73 square meters Globulin 3.5 G/dL Invalid Interpretation Code AO ADM SS Glucose [Mass/Vol] 115 mg/dL High 83 - 110 mg/dL AO ADM SS Potassium [Moles/Vol] 4.5 mmol/L Normal 3.5 - 5.1 mmol/L AO ADM SS Protein [Mass/Vol] 7.1 G/dL Normal 6.4 - 8.2 G/dL AO ADM SS Sodium [Moles/Vol] 139 mmol/L Normal 136 - 145 mmol/L AO ADM SS Urea nitrogen [Mass/Vol] 17 mg/dL Normal 7 - 18 mg/d L AO ADM SS Urea nitrogen/Creatinine [Mass ratio] 20 ratio Normal 7 - 27 ratio AO ADM SS LABORATORYOrdered By: Ирина Leija on 10-02-2023 Cholesterol [Mass/Vol] 249 mg/dL High 0 - 2 00 mg/dL AO ADM SS Comment on above: Interpretive Data: C holesterol Reference Interval: Less than 200 Desirable 200-239 Borderline high risk 240 and above High risk Cholesterol in HDL [Mass/Vol] 49 mg/dL Normal 40 - 60 mg/dL AO ADM SS Cholesterol in LDL [Mass/Vol] 168 mg/dL High 0 - 130 mg/dL AO ADM SS Triglyceride [Mass/Vol] 162 mg/dL High 0 - 150 mg/dL AO ADM SS Comment on above: Interpretive Data: T riglyceride Reference Interval: Less than 150 Normal 150-199 Borderline high risk 200-499 High risk 500 or higher Very high risk LIPIDon 10-02-2023 Cholesterol [Mass/Vol] 249 mg/dL High 0-200 [facility] ([place]) Comment on above: Result Comment: Chol esterol Reference Interval: Less than 200 Desirable 200-239 Borderline high risk 240 and above High risk Performed By: #### V IDH, LIPID, GFR, CMP #### [address] [address] Cholesterol in HDL [Mass/Vol] 49 mg/dL Normal 40-60 [facility] ([place]) Comment on above: Performed By: #### V IDH, LIPID, GFR, CMP #### [address] [address] Cholesterol in LDL [Mass/Vol] 168 mg/dL High 0-130 [facility] ([place]) Comment on above: Performed By: #### V IDH, LIPID, GFR, CMP #### [address] [address] Triglyceride [Mass/Vol] 162 mg/dL High 0-150 A [facility] ([place]) Comment on above: Result Comment: Trig lyceride Reference Interval: Less than 150 Normal 150-199 Borderline high risk 200-499 High risk 500 or higher Very high risk Performed By: #### V IDH, LIPID, GFR, CMP #### [address] [address] VIDHon 10-02-2023 Vit. D 25-Hydroxy 53.8 ng/mL Normal [facility] ([place]) Comment on above: Result Comment: Inte rpretive Values Based on Total 25(OH) Vitamin D: Deficient <20 ng/mL Insufficient 20 - <30 ng/mL Sufficient 30-100 ng/mL Performed By: #### V IDH, LIPID, GFR, CMP #### [id number] [place], [place] [address] BD BONE DENSITY DEXA AXIAL S Michael 09-26-2023 BD BONE DENSITY DEXA AXIAL SKELETON ORIGINAL EXAMINATION: BONE DENSITOMETRY 09/26/2023 11:36 am TECHNIQUE: A bone density dual x-ray absorptiometry (DEXA) scan was performed of the lumbar spine and left hip. COMPARISON: 06/28/2021 HISTORY: Reason for Exam: Osteoporosis Screening FINDINGS: BMD (g/cm2) Lumbar Spine L1-L4: 0.687. T Score Lumbar Spine L1-L4: -3.3 BMD (g/cm2) Left Femoral Neck: 0.517. T Score Left Femoral Neck: -3.0 BMD (g/cm2) Left Hip: 0.666. T Score Left Hip: -2.3 BMD Change from previous Hip: 5.5% BMD Change from previous Lumbar spine: -3.1% IMPRESSION: Osteoporosis by WHO criteria. I have personally reviewed the images of this examination and agree with the resident's findings and interpretation. Interpreted by: Oliverio Howard MD Preliminary Report By: Carlitos Farias Electronically signed By Oliverio Howard MD Dictated Date: 09/26/2023 11:48:17 AM Prelim Date: 09/26/2023 1:03:58 PM Sign Date: 09/26/2023 1:03:58 PM Ordering Provider: BECKY Yuen [facility] ([place]) LABORATORYOrdered By: Janelle Cai on 07-04-2022 Albumin BCP dye [Mass/Vol] 4.0 G/dL Invalid Interpretation Code 3.4 - 4.8 G/dL AO ADM SS Albumin/Globulin [Mass ratio] 1.2 {ratio} Invalid Interpretation Code 1.1 - 2.5 ratio AO ADM SS ALP [Catalytic activity/Vol] 90 U/L Invalid Interpretation Code 40 - 135 U/L AO ADM SS ALT With P-5'-P [Catalytic activity/Vol] 19 U/L Invalid Interpretation Code 14 - 59 U/L AO ADM SS AST With P-5'-P [Catalytic activity/Vol] 22 U/L Invalid Interpretation Code 10 - 40 U/L AO ADM SS Bilirubin [Mass/Vol] 0.3 mg/dL Invalid Interpretation Code 0.2 - 1.0 mg/dL AO ADM SS Calcium [Mass/Vol] 9.1 mg/dL Invalid Interpretation Code 8.4 - 10.2 mg/dL AO ADM SS Chloride [Moles/Vol] 103 mmol/L Invalid Interpretation Code 98 - 107 mmol/L AO ADM SS Cholesterol [Mass/Vol] 245 mg/dL Invalid Interpretation Code 0 - 200 mg/dL AO ADM SS Cholesterol in HDL [Mass/Vol] 45 mg/dL Invalid Interpretation Code 40 - 60 mg/dL AO ADM SS Cholesterol in LDL [Mass/Vol] 135 mg/dL Invalid Interpretation Code 0 - 130 mg/dL AO ADM SS CO2 [Moles/Vol] 27 mmol/L Invalid Interpretation Code 23 - 31 mmol/L AO ADM SS Creatinine [Mass/Vol] 0.95 mg/dL Invalid Interpretation Code 0.55 - 1.02 mg/dL AO ADM SS Electrolyte Balance 10.0 mEq/L Invalid Interpretation Code 4.0 - 15.0 mEq/L AO ADM SS Globulin 3.4 G/dL Invalid Interpretation Code AO ADM SS Glucose [Mass/Vol] 107 mg/dL Invalid Interpretation Code 83 - 110 mg/dL AO ADM SS Potassium [Moles/Vol] 4.2 mmol/L Invalid Interpretation Code 3.5 - 5.1 mmol/L AO ADM SS Protein [Mass/Vol] 7.4 G/dL Invalid Interpretation Code 6.4 - 8.2 G/dL AO ADM SS Sodium [Moles/Vol] 140 mmol/L Invalid Interpretation Code 136 - 145 mmol/L AO ADM SS Triglyceride [Mass/Vol] 325 mg/dL Invalid Interpretation Code 0 - 150 mg/dL AO ADM SS Urea nitrogen [Mass/Vol] 25 mg/dL Invalid Interpretation Code 7 - 18 mg/dL AO ADM SS Urea nitrogen/Creatinine [Mass ratio] 26 ratio Invalid Interpretation Code 7 - 27 ratio AO ADM SS LABORATORYOrdered By: Ruslan Howard on 07-04-2022 Basophil, Absolute 0.1 103/mcL Invalid Interpretation Code 0.0 - 0.2 10^3/mcL AO Workflow SS Basophils/100 WBC (Bld) 0.8 % Invalid Interpretation Code 0.0 - 2.5 % AO Workflow SS Eosinophil, Absolute 0.1 103/mcL Invalid Interpretation Code 0.0 - 0.4 10^3/mcL AO Workflow SS Eosinophils/100 WBC (Bld) 1.7 % Invalid Interpretation Code 0.0 - 7.0 % AO Workflow SS Erythrocyte distribution width (RBC) [Ratio] 14.0 % Invalid Interpretation Code 11.5 - 14.5 % AO Workflow SS Hematocrit (Bld) [Volume fraction] 40.9 % Invalid Interpretation Code 37.0 - 47.0 % AO Workflow SS Hemoglobin (Bld) [Mass/Vol] 13.6 G/dL Invalid Interpretation Code 12.0 - 16.0 G/dL AO Workflow SS Lymphocyte, Absolute 2.4 103/mcL Invalid Interpretation Code 0.8 - 3.9 10^3/mcL AO Workflow SS Lymphocytes/100 WBC (Bld) 32.0 % Invalid Interpretation Code 10.0 - 50.0 % AO Workflow SS MCH (RBC) [Entitic mass] 30.1 pg Invalid Interpretation Code 27.0 - 31.2 pg AO Workflow SS MCHC 33.2 G/dL Invalid Interpretation Code 33.0 - 37.0 G/dL AO Workflow SS MCV (RBC) [Entitic vol] 90.8 fL Invalid Interpretation Code 80.0 - 94.0 fL AO Workflow SS Monocyte, Absolute 0.6 103/mcL Invalid Interpretation Code 0.2 - 1.0 10^3/mcL AO Workflow SS Monocytes/100 WBC (Bld) 8.0 % Invalid Interpretation Code 1.7 - 13.0 % AO Workflow SS Neutrophil, Absolute 4.3 103/mcL Invalid Interpretation Code 2.9 - 6.2 10^3/mcL AO Workflow SS Neutrophils/100 WBC (Bld) 57.5 % Invalid Interpretation Code 37.0 - 80.0 % AO Workflow SS Platelet mean volume (Bld) [Entitic vol] 7.5 fL Invalid Interpretation Code 7.4 - 10.4 fL AO Workflow SS Platelets (Bld) [#/Vol] 244 103/mcL Invalid Interpretation Code 130 - 400 10^3/mcL AO Workflow SS RBC (Bld) [#/Vol] 4.51 106/mcL Invalid Interpretation Code 4.20 - 5.40 10^6/mcL AO Workflow SS WBC (Bld) [#/Vol] 7.4 103/mcL Invalid Interpretation Code 4.6 - 10.8 10^3/mcL AO Workflow SS LABORATORYOrdered By: SYSTEM SYSTEM on 07-04-2022 GFR 69 ml/min/1.73sqm Invalid Interpretation Code AO Chemistry S GFR Non- 57 ml/min/1.73sqm Inval id Interpretation Code AO Chemistry S LABORATORYOrdered By: Ирина Leija on 05-23-2021 Albumin BCP dye [Mass/Vol] 2.5 G/dL Invalid Interpretation Code 3.4 - 4.8 G/dL AO ADM SS Albumin/Globulin [Mass ratio] 0.7 {ratio} Invalid Interpretation Code 1.1 - 2.5 ratio AO ADM SS ALP [Catalytic activity/Vol] 73 U/L Invalid Interpretation Code 40 - 135 U/L AO ADM SS ALT With P-5'-P [Catalytic activity/Vol] 23 U/L Invalid Interpretation Code 14 - 59 U/L AO ADM SS AST With P-5'-P [Catalytic activity/Vol] 22 U/L Invalid Interpretation Code 10 - 40 U/L AO ADM SS Bilirubin [Mass/Vol] 0.3 mg/dL Invalid Interpretation Code 0.2 - 1.0 mg/dL AO ADM SS Calcium [Mass/Vol] 8.9 mg/dL Invalid Interpretation Code 8.4 - 10.2 mg/dL AO ADM SS Chloride [Moles/Vol] 105 mmol/L Invalid Interpretation Code 98 - 107 mmol/L AO ADM SS CO2 [Moles/Vol] 26 mmol/L Invalid Interpretation Code 23 - 31 mmol/L AO ADM SS Creatinine [Mass/Vol] 0.83 mg/dL Invalid Interpretation Code 0.55 - 1.02 mg/dL AO ADM SS CRP [Mass/Vol] 3.3 mg/dL Invalid Interpretation Code 0.0 - 0.9 mg/dL AO ADM SS Electrolyte Balance 12.0 mEq/L Invalid Interpretation Code AO ADM SS Globulin 3.7 G/dL Invalid Interpretation Code AO ADM SS Glucose [Mass/Vol] 94 mg/dL Invalid Interpretation Code 83 - 110 mg/dL AO ADM SS Potassium [Moles/Vol] 3.8 mmol/L Invalid Interpretation Code 3.5 - 5.1 mmol/L AO ADM SS Protein [Mass/Vol] 6.2 G/dL Invalid Interpretation Code 6.4 - 8.2 G/dL AO ADM SS Sodium [Moles/Vol] 143 mmol/L Invalid Interpretation Code 136 - 145 mmol/L AO ADM SS Urea nitrogen [Mass/Vol] 13 mg/dL Invalid Interpretation Code 7 - 18 mg/dL AO ADM SS Urea nitrogen/Creatinine [Mass ratio] 16 ratio Invalid Interpretation Code 7 - 27 ratio AO ADM SS LABORATORYOrdered By: Chelo Walker on 05-23-2021 Basophil, Absolute 0.10 103/mcL Invalid Interpretation Code 0.00 - 0.19 10^3/mcL AO Auto Heme SS Basophils/100 WBC (Bld) 0.7 % Invalid Interpretation Code 0.0 - 2.5 % AO Auto Heme SS Eosinophil, Absolute 0.30 103/mcL Invalid Interpretation Code 0.00 - 0.40 10^3/mcL AO Auto Heme SS Eosinophils/100 WBC (Bld) 3.1 % Invalid Interpretation Code 0.0 - 7.0 % AO Auto Heme SS Erythrocyte distribution width (RBC) [Ratio] 13.2 % Invalid Interpretation Code 11.5 - 14.5 % AO Auto Heme SS ESR 15 minute reading (Bld) [Velocity] 52 mm/hr Invalid Interpretation Code 0 - 30 mm/hr AO Man Heme SS Hematocrit (Bld) [Volume fraction] 34.6 % Invalid Interpretation Code 37.0 - 47.0 % AO Auto Heme SS Hemoglobin (Bld) [Mass/Vol] 11.6 G/dL Invalid Interpretation Code 12.0 - 16.0 G/dL AO Auto Heme SS Lymphocyte, Absolute 2.30 103/mcL Invalid Interpretation Code 0.77 - 3.85 10^3/mcL AO Auto Heme SS Lymphocytes/100 WBC (Bld) 25.9 % Invalid Interpretation Code 10.0 - 50.0 % AO Auto Heme SS MCH (RBC) [Entitic mass] 31.8 pg Invalid Interpretation Code 27.0 - 31.2 pg AO Auto Heme SS MCHC (RBC) [Mass/Vol] 33.4 G/dL Invalid Interpretation Code 33.0 - 37.0 G/dL AO Auto Heme SS MCV (RBC) [Entitic vol] 95.2 fL Invalid Interpretation Code 80.0 - 94.0 fL AO Auto Heme SS Monocyte, Absolute 0.60 103/mcL Invalid Interpretation Code 0.15 - 1.00 10^3/mcL AO Auto Heme SS Monocytes/100 WBC (Bld) 6.7 % Invalid Interpretation Code 1.7 - 13.0 % AO Auto Heme SS Neutrophil, Absolute 5.70 103/mcL Invalid Interpretation Code 2.85 - 6.16 10^3/mcL AO Auto Heme SS Neutrophils/100 WBC (Bld) 63.6 % Invalid Interpretation Code 37.0 - 80.0 % AO Auto Heme SS Platelet mean volume (Bld) [Entitic vol] 8.0 fL Invalid Interpretation Code 7.4 - 10.4 fL AO Auto Heme SS Platelets (Bld) [#/Vol] 387 103/mcL Invalid Interpretation Code 130 - 400 10^3/mcL AO Auto Heme SS RBC (Bld) [#/Vol] 3.63 106/mcL Invalid Interpretation Code 4.20 - 5.40 10^6/mcL AO Auto Heme SS WBC (Bld) [#/Vol] 8.90 103/mcL Invalid Interpretation Code 4.60 - 10.80 10^3/mcL AO Auto Heme SS LABORATORYOrdered By: SYSTEM SYSTEM on 05-23-2021 GFR 81 ml/min/1.73sqm Invalid Interpretation Code AO Chemistry S GFR Non- 67 ml/min/1.73sqm Inval id Interpretation Code AO Chemistry S [facility] RITIK[facility] SANTANA ([id number]) 1945 F Date Time Provider Department 04/30/21 VÍCTOR VOGEL [facility] During your visit today, we recorded the following information about you: Taylor Hermosillo 04/30/2021 1:38 PM Signed ----- Message from Víctor Vogel MD sent at 04/30/2021 1:20 PM EDT ----- COVID negative. Taylor Hermosillo 04/30/2021 1:40 PM Signed Patient given results and verbalized understanding of instructions given. Taylor Hermosillo Allergies As of Date: 04/30/2021 Noted Allergy Reaction CIPROFLOXACIN 08/20/2020 14 - Other: See Comments Comments: c-diff Date Reviewed: 04/29/2021 Reviewed by: Taylor Hermosillo - Fully Assessed Reason for Visit: Results [95] Prescriptions as of 04/30/2021 - ELIQUIS 5 mg tab(s) - benazepril (LOTENSIN) 20 mg tablet Take 20 mg by mouth once daily. - dilTIAZem CD (CARDIZEM CD, CARTIA XT) 120 mg 24 hr capsule Take 120 mg by mouth once daily. - montelukast (SINGULAIR) 10 mg tablet Take 10 mg by mouth once daily. - potassium chloride 20 mEq TbER Take 1 tablet by mouth once daily. - hydrochlorothiazide 50 mg tablet Take 1 tablet by mouth once daily. - therapeutic multivitamin tablet Take 1 tablet by mouth once daily. - Fish Oil-[place]-3 Fatty Acids (FISH OIL OMEGA 3-6-9) 300-1,000 mg CpDR Take 1 capsule by mouth once daily. - COMPOUNDED PRESCRIPTION Potassium 95 mg takes 1 tablet daily - COMPOUNDED PRESCRIPTION Cranberry 1000 mg takes 1 capsule daily. Problem List As Of Date 04/30/2021 Noted Resolved Hiatal hernia [K44.9] Ear problems [H93.90] Benign neoplasm of colon [D12.6] 04/03/2012 Special screening for malignant neoplasms, colo*04/03/2012 Encounter Status:Closed by TAYLOR HERMOSILLO on 04/30/21 [facility] CNOVcurtis 04-29-2021 [facility] RITIKA SANTANA ([id number]) 1945 F Date Time Provider Department 04/29/21 1:15 PM LISSA KIM[facility]ALL [facility] During your visit today, we recorded the following information about you: Temperature Pulse Respiration Blood pressure 100.4 degrees 100/minute 18/minute 162/90 Weight 66.7 kg Lissa Kimball APRN.CNP 04/29/2021 1:25 PM Signed This note was created using NoteWriter. Subjective Ritika Santana is a 75 year old female. 75 year old female with PMH acid reflux presents with concerns for COVID. Acute onset last night +chills +headache +diarrhea. Endorses she had COVID back in August, and this feels similar. States they had friends from [place] come in over this past weekend. The history is provided by the patient. No speech language specialist was used. URI She complains of cough. There is no chest tightness, difficulty breathing, frequent throat clearing, hemoptysis, hoarse voice, shortness of breath, sputum production or wheezing. This is a new problem. The current episode started yesterday. The problem occurs constantly. The cough is non-productive. Associated symptoms include headaches. Pertinent negatives include no appetite change, chest pain, dyspnea on exertion, ear congestion, ear pain, fever, heartburn, malaise/fatigue, myalgias, nasal congestion, orthopnea, PND, postnasal drip, rhinorrhea, sneezing, sore throat, sweats, trouble swallowing or weight loss. Her symptoms are aggravated by nothing. Her symptoms are alleviated by nothing. She reports no improvement on treatment. There are no known risk factors for lung disease. There is no history of asthma, bronchiectasis, bronchitis, COPD, emphysema or pneumonia. PAST MEDICAL HISTORY Diagnosis Date - Benign neoplasm of colon - Ear problems - Heartburn - Hiatal hernia - Personal history of colonic polyps - Unspecified vertiginous syndromes and labyrinthine disorders PAST SURGICAL HISTORY Procedure Laterality Date - COLONOSCOP W/ OR W/O [facility] SPEC 06/12/12 Colonoscopy repeat 2 years - COLONOSCOPY W/BX 04/03/12 submucosal injection - PAST SURGICAL HISTORY OF left breast cyst removed x 2386.9 ALLERGIES Ciprofloxacin MEDICATIONS ELIQUIS 5 mg tab(s) benazepril (LOTENSIN) 20 mg tablet Take 20 mg by mouth once daily. dilTIAZem CD (CARDIZEM CD, CARTIA XT) 120 mg 24 hr capsule Take 120 mg by mouth once daily. montelukast (SINGULAIR) 10 mg tablet Take 10 mg by mouth once daily. potassium chloride 20 mEq TbER Take 1 tablet by mouth once daily. hydrochlorothiazide 50 mg tablet Take 1 tablet by mouth once daily. therapeutic multivitamin tablet Take 1 tablet by mouth once daily. Fish Oil-Wheeling-3 Fatty Acids (FISH OIL OMEGA 3-6-9) 300-1,000 mg CpDR Take 1 capsule by mouth once daily. COMPOUNDED PRESCRIPTION Potassium 95 mg takes 1 tablet daily COMPOUNDED PRESCRIPTION Cranberry 1000 mg takes 1 capsule daily. FAMILY HISTORY Problem Relation Age of Onset - other (ALS [Other]) Mother - Hypertension Father Social History Tobacco Use - Smoking status: Never Smoker - Smokeless tobacco: Never Used Substance Use Topics - Alcohol use: Yes Comment: ocas - Drug use: No Review of Systems Constitutional: Negative for appetite change, fever, malaise/fatigue and weight loss. HENT: Positive for congestion. Negative for dental problem, drooling, ear discharge, ear pain, facial swelling, hearing loss, hoarse voice, mouth sores, nosebleeds, postnasal drip, rhinorrhea, sneezing, sore throat and trouble swallowing. Eyes: Negative for photophobia, pain, discharge, redness, itching and visual disturbance. Respiratory: Positive for cough. Negative for apnea, hemoptysis, sputum production, choking, chest tightness, shortness of breath and wheezing. Cardiovascular: Negative for chest pain, dyspnea on exertion and PND. Gastrointestinal: Negative for abdominal pain, diarrhea, heartburn, nausea and vomiting. Musculoskeletal: Negative for myalgias. Skin: Negative for color change, pallor, rash and wound. Allergic/Immunologic: Negative for environmental allergies, food allergies and immunocompromised state. Neurological: Positive for headaches. Negative for dizziness, seizures, facial asymmetry, light-headedness and numbness. Hematological: Negative for adenopathy. Does not bruise/bleed easily. Psychiatric/Behaviora l: Negative for agitation and behavioral problems. Objective BP 162/90 Pulse 100 Temp (!) 38 ?C (100.4 ?F) Resp 18 Wt 66.7 kg (147 lb) SpO2 97% Physical Exam Vitals and nursing note reviewed. Constitutional: General: She is not in acute distress. Appearance: Normal appearance. She is normal weight. She is not ill-appearing, toxic-appearing or diaphoretic. HENT: Head: Normocephalic and atraumatic. Right Ear: Ear canal and external ear normal. Left Ear: Ear canal and external ear (more content not included)... Normal [facility] Coronavirus 2019on 1 SARS-CoV-2 (COVID-19) RNA ARMANI+probe Ql (Unsp spec) UPPER RESPIRATORY TRACT SWAB Normal [facility] Comment on above: Performed By: #### C OVID #### [place] [id number] SARS-CoV-2 (COVID-19) RNA ARMANI+probe Ql (Unsp spec) Negative for COVID19 (SARS CoV2) by RT-PCR or equivalent method. Normal Negative for COVID19 (SARS CoV2) by RT-PCR or equivalent method. [facility] Comment on above: Result Comment: This test was developed and its performance characteristics determined by [facility] [place]. This test has been authorized by FDA under an Emergency Use Authorization (EUA). This test has been validated in accordance with the FDA's Guidance Document Policy for Diagnostics Testing in Laboratories Certified to Perform High Complexity Testing under CLIA prior to Emergency use Authorization for Coronavirus Disease 2019 during the Public Health Emergency issued on October 11, 2019. Test performed by [facility], [facility] [place], [address] [place] [address]. Performed By: #### C OVID #### [place] [address] AIMEEOVcurtis 03-02-2021 CNOV Office Visit (UCWSTR ) RITIKA SANTANA ([id number]) 1945 F Date Time Provider Department 03/02/21 3:45 PM [facility]OHNSON [facility] During your visit today, we recorded the following information about you: Temperature Pulse Respiration Blood pressure 98.8 degrees 90/minute 18/minute 122/72 Weight 67.7 kg Carmen Johnson PA-C 03/02/2021 6:00 PM Signed This note was created using NoteWriter. Subjective Ritika Santana is a 75 year old female. HPI Patient presents with a sore on her leg for 2 Months. She saw her pcp who placed her on bactrim 2 weeks ago. She finished it several days ago. She is scheduled to see dermatology in 2 days. She noticed the side was getting more red and was concerned for 'sepsis so she came in for evaluation. It does chronically seep some fluid. No fever or chills. Review of Systems Constitutional: Negative. HENT: Negative. Respiratory: Negative. Cardiovascular: Negative. Gastrointestinal: Negative. Musculoskeletal: Left leg sore All other systems reviewed and are negative. PAST MEDICAL HISTORY Diagnosis Date - Benign neoplasm of colon - Ear problems - Heartburn - Hiatal hernia - Personal history of colonic polyps - Unspecified vertiginous syndromes and labyrinthine disorders Current Outpatient Medications Medication Sig Dispense Refill - doxycycline (VIBRA-TABS) 100 mg tablet Take 1 tablet by mouth twice daily for 5 days. 10 tablet 0 - ELIQUIS 5 mg tab(s) - benazepril (LOTENSIN) 20 mg tablet Take 20 mg by mouth once daily. - dilTIAZem CD (CARDIZEM CD, CARTIA XT) 120 mg 24 hr capsule Take 120 mg by mouth once daily. - montelukast (SINGULAIR) 10 mg tablet Take 10 mg by mouth once daily. - potassium chloride 20 mEq TbER Take 1 tablet by mouth once daily. - hydrochlorothiazide 50 mg tablet Take 1 tablet by mouth once daily. 0 - therapeutic multivitamin tablet Take 1 tablet by mouth once daily. 0 - Fish Oil-Wheeling-3 Fatty Acids (FISH OIL OMEGA 3-6-9) 300-1,000 mg CpDR Take 1 capsule by mouth once daily. 0 - COMPOUNDED PRESCRIPTION Potassium 95 mg takes 1 tablet daily 0 - COMPOUNDED PRESCRIPTION Cranberry 1000 mg takes 1 capsule daily. 0 No current facility-administered medications for this visit. PAST SURGICAL HISTORY Procedure Laterality Date - COLONOSCOP W/ OR W/O [facility] SPEC 06/12/12 Colonoscopy repeat 2 years - COLONOSCOPY W/BX 04/03/12 submucosal injection - PAST SURGICAL HISTORY OF left breast cyst removed x 2386.9 FAMILY HISTORY Problem Relation Age of Onset - other (ALS [Other]) Mother - Hypertension Father Social History Tobacco Use - Smoking status: Never Smoker - Smokeless tobacco: Never Used Substance Use Topics - Alcohol use: Yes Comment: ocas - Drug use: No Objective BP 122/72 Pulse 90 Temp 37.1 ?C (98.8 ?F) (Tympanic) Resp 18 Wt 67.7 kg (149 lb 3.2 oz) SpO2 98% Physical Exam Vitals reviewed. Constitutional: Appearance: Normal appearance. HENT: Head: Normocephalic and atraumatic. Musculoskeletal: Legs: Comments: Large raised irregular lesion with open scabbing and some mild erythema surrounding on the posterior left calf. No significant surrounding erythema. Some mild surrounding the wound edges. Does appear to be draining some serous fluid. No sign of drainable abscess. Neurological: Mental Status: She is alert. Assessment and Plan ASSESSMENT/PLAN: 1. Skin lesion - ICD9: 709.9, ICD10: L98.9 Patient states that the area is gotten a little more swollen and painful the past few days so I will start her on doxy for 5 days until she can see dermatology. Really does not appear significantly infected however is swollen but likely chronically this way. She is to see dermatology in 2 days, likely needs a biopsy to rule out cancerous lesion. Discussed all of this with her. She is agreeable with plan. Carmen Johnson PA-C Referring Provider: SELF [200] Allergies As of Date: 03/02/2021 Noted Allergy Reaction CIPROFLOXACIN 08/20/2020 14 - Other: See Comments Comments: c-diff Date Reviewed: 03/02/2021 Reviewed by: Yanira Christensen MA - Fully Assessed Reason for Visit: LESION, SKIN [936] Cmt: sore on left leg x 2 months Primary Visit Diagnosis:Skin lesion [L98.9] Order(s):doxycycline (VIBRA-TABS) 100 mg tabletTake 1 tablet by mouth twice daily for 5 days.Disp: 10 tabletRfl: 0 Prescriptions as of 03/02/2021 - doxycycline (VIBRA-TABS) 100 mg tablet Take 1 tablet by mouth twice daily for 5 days. - ELIQUIS 5 mg tab(s) - benazepril (LOTENSIN) 20 mg tablet Take 20 mg by mouth once daily. - dilTIAZem CD (CARDIZEM CD, CARTIA XT) 120 mg 24 hr capsule Take 120 mg by mouth once daily. - montelukast (SINGULAIR) 10 mg tablet Take 10 mg by mouth once daily. - potassium chloride 20 mEq TbER Take 1 tablet by mouth once daily. - hydrochlorothiazide 50 mg tablet Take 1 tablet by mouth once daily. - (more content not included)... 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 12-29-2016 Left ventricular Ejection fraction 55 % Invalid Interpretation Code [facility] Work Phone: [phone] Lab Report: Basic Metabolic Profile (BMP)on 09-29-2016 Anion gap 10 mmol/L Invalid Interpretation Code 5-15 [facility] Work Phone: [phone] BUN/Creatinine Ratio 22.7 RATIO High 10-20 [facility] Work Phone: [phone] Calcium 9.0 mg/dL Invalid Interpretation Code 8.5-10.1 [facility] Work Phone: [phone] Chloride 103 mmol/L Invalid Interpretation Code 98-107 [facility] Work Phone: [phone] CO2 27.0 mmol/L Invalid Interpretation Code 21.0-32.0 [facility] Work Phone: [phone] Creatinine 0.79 mg/dL Invalid Interpretation Code 0.55-1.02 [employer] Phone: [phone] eGFR (non-black) 92 mL/min/{1.73_m2} Invalid Interpretation Code >60 [facility] Work Phone: [phone] eGFR (non-black) 76 mL/min/{1.73_m2} Invalid Interpretation Code >60 [facility] Work Phone: [phone] Glucose 99 mg/dL Invalid Interpretation Code 70-110 [facility] Work Phone: [phone] Potassium 3.8 mmol/L Invalid Interpretation Code 3.5-5.1 [facility] Work Phone: [phone] Sodium 140 mmol/L Invalid Interpretation Code 136-145 [employer] Phone: [phone] Urea nitrogen 18 mg/dL Invalid Interpretation Code 7-18 [employer] Phone: [phone] Lab Report: Prothrombin Time w/INRon 08-25-2016 Coagulation tissue factor induced in platelet poor plasma 13.4 s Invalid Interpretation Code 11.7-14.9 [employer] Phone: [phone] INR in blood by coagulation 1.1 {INR} Invalid Interpretation Code [employer] Phone: [phone] Office Visit: [facility] 07-13-20 Dietary management education, guidance, and counseling (procedure) yes Invalid Interpretation Code [employer] Phone: [phone] Documentation of current medications (procedure) Done Invalid Interpretation Code [employer] Phone: [phone] Office Visiton 01-03-2016 Tobacco use CPHS Never smoker Invalid Interpretation Code [employer] Phone: [phone] Replaced Document: [employer] E CG Observationson 07-01-2015 electrocardiogram interpretation Sinus Rhythm WITHIN NORMAL LIMITS Invalid Interpretation Code [employer] Phone: [phone] GE use only - for [employer] import when terms are not otherwise specified 427 ms Invalid Interpretation Code [employer] Phone: [phone] P wave axis, electrocardiogram 67 deg Invalid Interpretation Code [employer] Phone: [phone] OH interval, electrocardiogram 124 ms Invalid Interpretation Code [employer] Phone: [phone] Pulse (Heart Rate) 80 /min Invalid Interpretation Code [employer] Phone: [phone] QRS axis, electrocardiogram 24 deg Invalid Interpretation Code [employer] Phone: [phone] QRS duration, electrocardiogram 88 ms Invalid Interpretation Code [employer] Phone: [phone] QT interval, electrocardiogram new path ms Invalid Interpretation Code [employer] Phone: [phone] T wave axis, electrocardiogram 33 deg Invalid Interpretation Code [employer] Phone: [phone] Office Visiton 12-30-2014 cardiac risk group B Invalid Interpretation Code [employer] Phone: [phone] General cardiovascular disease 10Y risk [#] Kristin.Erick'Agostsocrates Not enough information Invalid Interpretation Code [facility] Work Phone: [phone] Lab Report: MGon 04-28-2014 Magnesium 2.0 mg/dL Normal 1.8-2.4 [facility] Work Phone: [phone] Replaced Document: Mumtaz KWOK Observationson 04-23-2014 Pulse (Heart Rate) 438 ms Invalid Interpretation Code [facility] Work Phone: [phone] Clinical Lists Update: [employer] counter associate 03-31-2014 Erythrocytes (RBC) 3.59 10*6/uL [facility] Work Phone: [phone] Hematocrit (HCT) 32.3 % Low [facility] Work Phone: [phone] Hemoglobin (HGB) 11.2 g/dL Low [facility] Work Phone: [phone] MCH 31.2 pg Invalid Interpretation Code [facility] Work Phone: [phone] MCHC 34.7 g/dL Invalid Interpretation Code [facility] Work Phone: [phone] MCV 90.0 fL Invalid Interpretation Code [facility] Work Phone: [phone] Platelets 293 10*3/mm3 Invalid Interpretation Code [facility] Work Phone: [phone] WBC (Leukocytes) 10.0 10*3/uL Invalid Interpretation Code [facility] Work Phone: [phone] Vital Signs Date Time Vital Sign Value Performing Clinician Facility 02-24-2025 11:06-0400 Diastolic blood pressure 66 mm[Hg] Billy Gonzalez APRN - WEBSPHERE ADMINISTRATOR Work Phone: [email or web address] 02-24-2025 11:06-0400 Systolic blood pressure 132 mm[Hg] Billy Gonzalez APRN - WEBSPHERE ADMINISTRATOR Work Phone: [email or web address] 02-24-2025 11:03-0400 Body height 160 cm Billy Gonzalez APRN - WEBSPHERE ADMINISTRATOR Work Phone: [email or web address] 02-24-2025 11:03-0400 Body mass index (BMI) [Ratio] 25.15 kg/m2 Billy Gonzalez APRN - WEBSPHERE ADMINISTRATOR Work Phone: [email or web address] 02-24-2025 11:03-0400 Body weight 64.41 kg Billy Gonzalez EVALUATOR TRANSFER STUDENTS - WEBSPHERE ADMINISTRATOR Work Phone: [facility] 02-24-2025 11:03-0400 Heart rate 72 /min Billy Gonzalez EVALUATOR TRANSFER STUDENTS - WEBSPHERE ADMINISTRATOR Work Phone: [facility] 02-11-2025 07:44-0400 Body height 160.02 cm BECKY MAST MEDICINE MAN Work Phone: [facility] 02-11-2025 07:44-0400 Body mass index (BMI) [Ratio] 25.3 kg/m2 [employer]IC[employer] Work Phone: [facility] 02-11-2025 07:44-0400 Body weight 64.86 kg B[employer]KY [employer] MEDIC[employer] MAN Work Phone: [facility] 02-11-2025 07:44-0400 Diastolic blood pressure 72 mm[Hg] BECKY MAST MEDICINE MAN Work Phone: [facility] 02-11-2025 07:44-0400 Heart rate 58 /min [employer]KY [employer] MEDICINE MAN Work Phone: [facility] 02-11-2025 07:44-0400 Respiratory rate 18 /min [employer] MEDIC[employer] MAN Work Phone: [facility] 02-11-2025 07:44-0400 SaO2% (BldA) [Mass fraction] 98 % [employer]KY [employer] MEDIC[employer] MAN Work Phone: [facility] 02-11-2025 07:44-0400 Systolic blood pressure 116 mm[Hg] BECKY MAST MEDICINE MAN Work Phone: [facility] 01-26-2025 13:10-0400 Heart rate 88 /min Washington Rosario MD Work Phone: [facility] 01-26-2025 13:10-0400 Respiratory rate 18 /min Washington Rosario MD Work Phone: [facility] 01-26-2025 12:05-0400 Body temperature 97 [degF] Washington Rosario MD Work Phone: [facility] 01-26-2025 12:05-0400 Diastolic blood pressure 52 mm[Hg] Washington Rosario MD Work Phone: [facility] 01-26-2025 12:05-0400 SaO2% (BldA) [Mass fraction] 97 % Washington Rosario MD Work Phone: [facility] 01-26-2025 12:05-0400 Systolic blood pressure 123 mm[Hg] Washington Rosario MD Work Phone: [facility] 01-26-2025 06:00-0400 Body mass index (BMI) [Ratio] 25.58 kg/m2 Washington Rosario MD Work Phone: [facility] 01-26-2025 06:00-0400 Body weight 65.5 kg Washington Rosario MD Work Phone: [facility] 01-13-2025 07:54-0400 Body height 160 cm Washington Rosario MD Work Phone: [facility] 01-13-2025 00:18-0400 SaO2% (BldA) [Mass fraction] 97.2 % Washington Rosario MD Work Phone: [facility] 01-12-2025 18:36-0400 SaO2% (BldA) [Mass fraction] 98.1 % Washington Rosario MD Work Phone: [facility] 01-08-2025 23:25-0400 Body temperature 98.2 [degF] [employer]KY [employer] MEDIC[employer] MAN Work Phone: [facility] 01-08-2025 23:25-0400 Diastolic blood pressure 61 mm[Hg] BECKY [employer] MEDIC[employer] MAN Work Phone: [facility] 01-08-2025 23:25-0400 Heart rate 88 /min [employer]IC[employer] Work Phone: [facility] 01-08-2025 23:25-0400 Respiratory rate 16 /min [employer]IC[employer] Work Phone: [facility] 01-08-2025 23:25-0400 SaO2% (BldA) [Mass fraction] 95 % [employer]IC[employer] Work Phone: [facility] 01-08-2025 23:25-0400 Systolic blood pressure 136 mm[Hg] BECKY [employer] MEDICINE MAN Work Phone: [facility] 01-07-2025 20:01-0400 Body temperature 97.2 [degF] BECKY [employer] MEDICINE MAN Work Phone: [facility] 01-07-2025 20:01-0400 Diastolic blood pressure 69 mm[Hg] B[employer]KY [employer] MEDIC[employer] MAN Work Phone: [facility] 01-07-2025 20:01-0400 Heart rate 94 /min [employer]KY [employer] MEDIC[employer] MAN Work Phone: [facility] 01-07-2025 20:01-0400 Respiratory rate 17 /min [employer]IC[employer] Work Phone: [facility] 01-07-2025 20:01-0400 SaO2% (BldA) [Mass fraction] 97 % [employer] Work Phone: [facility] 01-07-2025 20:01-0400 Systolic blood pressure 147 mm[Hg] BECKY [employer] MEDICINE MAN Work Phone: [facility] 01-07-2025 15:46-0400 Body temperature 98.6 [degF] B[employer]KY [employer] MEDIC[employer] MAN Work Phone: [facility] 01-07-2025 15:46-0400 Diastolic blood pressure 80 mm[Hg] BECKY [employer] MEDIC[employer] MAN Work Phone: [facility] 01-07-2025 15:46-0400 Heart rate 87 /min [employer]KY [employer] MEDIC[employer] MAN Work Phone: [facility] 01-07-2025 15:46-0400 SaO2% (BldA) [Mass fraction] 94 % [employer]KY [employer] MEDIC[employer] MAN Work Phone: [facility] 01-07-2025 15:46-0400 Systolic blood pressure 132 mm[Hg] BECKY [employer] MEDICINE MAN Work Phone: [facility] 01-07-2025 15:40-0400 Body height 160.02 cm B[employer]KY [employer] MEDIC[employer] MAN Work Phone: [facility] 01-07-2025 14:00-0400 Diastolic blood pressure 85 mm[Hg] B[employer]KY [employer] MEDIC[employer] MAN Work Phone: [facility] 01-07-2025 14:00-0400 Heart rate 101 /min [employer]IC[employer] MAN Work Phone: [facility] 01-07-2025 14:00-0400 SaO2% (BldA) [Mass fraction] 98 % [employer] Work Phone: [facility] 01-07-2025 14:00-0400 Systolic blood pressure 167 mm[Hg] B[employer]KY [employer] MEDIC[employer] MAN Work Phone: [facility] 01-07-2025 13:32-0400 Body temperature 98 [degF] B[employer]KY [employer] MEDIC[employer] MAN Work Phone: [facility] 01-07-2025 10:17-0400 Body height 160.02 cm B[employer]KY [employer] MEDIC[employer] MAN Work Phone: [facility] 01-07-2025 10:17-0400 Body mass index (BMI) [Ratio] 27.1 kg/m2 [employer] Work Phone: [facility] 01-07-2025 10:17-0400 Body weight 69.67 kg B[employer]KY [employer] MEDIC[employer] MAN Work Phone: [facility] 01-07-2025 07:09-0400 Body mass index (BMI) [Ratio] 27.1 kg/m2 [employer] Work Phone: [facility] 01-07-2025 07:09-0400 Body weight 69.39 kg B[employer]KY [employer] MEDIC[employer] MAN Work Phone: [facility] 01-07-2025 07:09-0400 Diastolic blood pressure 81 mm[Hg] B[employer]KY [employer] MEDIC[employer] MAN Work Phone: [facility] 01-07-2025 07:09-0400 Heart rate 81 /min [employer] Work Phone: [facility] 01-07-2025 07:09-0400 Respiratory rate 18 /min [employer] Work Phone: [facility] 01-07-2025 07:09-0400 SaO2% (BldA) [Mass fraction] 9 % [employer]IC[employer] MAN Work Phone: [facility] 01-07-2025 07:09-0400 Systolic blood pressure 135 mm[Hg] BECKY [employer] MEDIC[employer] MAN Work Phone: [facility] 10-23-2024 13:48-0400 Diastolic blood pressure 80 mm[Hg] B[employer]KY [employer] MEDIC[employer] MAN Work Phone: [facility] 10-23-2024 13:48-0400 Systolic blood pressure 140 mm[Hg] B[employer]KY [employer]IC[employer] MAN Work Phone: [facility] 10-23-2024 08:46-0400 Body mass index (BMI) [Ratio] 27.1 kg/m2 [employer] Work Phone: [facility] 10-23-2024 08:46-0400 Body weight 69.39 kg B[employer]KY [employer] MEDIC[employer] MAN Work Phone: [facility] 10-23-2024 08:46-0400 Heart rate 94 /min [employer]KY [employer] MEDIC[employer] MAN Work Phone: [facility] 10-23-2024 08:46-0400 Respiratory rate 18 /min [employer]IC[employer] Work Phone: [facility] 10-23-2024 08:46-0400 SaO2% (BldA) [Mass fraction] 98 % [employer] MEDIC[employer] MAN Work Phone: [facility] 06-27-2021 07:29-0500 Body height [address] SHAWNA KEITA MD [facility] 06-27-2021 07:29-0500 Body temperature 97.16 [degF] DR SHAWNA KEITA MD [facility] 06-27-2021 07:29-0500 Body weight 63.[address] SHAWNA KEITA MD [facility] 06-27-2021 07:29-0500 diastolic 77 mm[Hg] DR SHAWNA KEITA MD [facility] 06-27-2021 07:29-0500 Heart rate 98 /min DR SHAWNA KEITA MD [facility] 06-27-2021 07:29-0500 Respiratory rate 21 /min DR SHAWNA KEITA MD [facility] 06-27-2021 07:29-0500 systolic 144 mm[Hg] DR SHAWNA KEITA MD [facility] 01-01-2017 10:46-0400 BMI (Body Mass Index) 26.69 kg/m2 [facility] Work Phone: 01-01-2017 10:46-0400 BP Diastolic 78 mm[Hg] Agustina Hoang [facility] Work Phone: 01-01-2017 10:46-0400 BP Systolic 160 mm[Hg] [facility] Work Phone: 01-01-2017 10:46-0400 Height 160.02 cm [facility] Work Phone: 01-01-2017 10:46-0400 Pulse (Heart Rate) 80 /min [facility] Work Phone: 01-01-2017 10:46-0400 Respiratory Rate 20 /min Agustina Hoang [facility] Work Phone: 01-01-2017 10:46-0400 Weight 68.36 kg Agustina Hoang [facility] Work Phone: 07-13-2016 09:14-0500 BMI (Body Mass Index) 26 kg/m2 [facility] Work Phone: 07-13-2016 09:14-0500 BP Diastolic 70 mm[Hg] Layla Umanzor RN [facility] Work Phone: 07-13-2016 09:14-0500 BP Systolic 130 mm[Hg] Layla Umanzor RN [facility] Work Phone: 07-13-2016 09:14-0500 BSA (Body Surface Area) 1.7 m2 Layla Umanzor RN [facility] Work Phone: 07-13-2016 09:14-0500 Pulse (Heart Rate) 84 /min [facility] Work Phone: 07-13-2016 09:14-0500 Respiratory Rate 16 /min [facility] Work Phone: 07-13-2016 09:14-0500 Weight 66.59 kg [facility] Work Phone: 04-23-2014 10:18-0400 Height 160.02 cm [facility] Work Phone: Encounters Encounter Date Encounter Type Care Provider Facility Start: 02-24-2025 End: 02-24-2025 Postop follow up visit related to original px Billy Gonzalez APRN - WEBSPHERE ADMINISTRATOR Work Phone: [facility] Cardiovascular Thoracic Surgery - [place] Comment on above: S/P CABG (coronary a rtery bypass graft) (Primary Dx) Start: 02-11-2025 End: 02-11-2025 ambulatory B[employer]KY [employer]IC[employer] MAN Work Phone: -Radiology [facility] Start: 02-11-2025 End: 02-11-2025 Patient encounter procedure Noe Nguyễn [place] -Radiology [facility] Work Phone: Start: 02-11-2025 End: 02-11-2025 Patient encounter procedure Noe Nguyễn [place] -[facility] Work Phone: Start: 02-11-2025 End: 02-11-2025 ambulatory BECKY [employer] MEDIC[employer] MAN Work Phone: -[place] [facility] Start: 02-11-2025 End: 02-11-2025 ambulatory Noe Demiter Facility:[facility] Start: 02-06-2025 End: 02-10-2025 ambulatory BECKY MAST EVALUATOR TRANSFER STUDENTS-WEBSPHERE ADMINISTRATOR Facility:[facility] Start: 02-06-2025 End: 02-10-2025 Outreach Lab BECKY MAST EVALUATOR TRANSFER STUDENTS-WEBSPHERE ADMINISTRATOR [facility] Start: 02-04-2025 ambulatory Sukhdev Leni HAND Facili ty:[facility] Start: 02-04-2025 Registered Referred Sukhdev Farrar [facility] -[facility] Start: 02-03-2025 ambulatory Sukhdev Leni OLS Facili ty:[facility] Start: 02-03-2025 Registered Referred Sukhdev Farrar MD -[facility] Start: 01-28-2025 ambulatory Sukhdevmert HAND Facili ty:[facility] Start: 01-28-2025 Registered Referred Sukhdev Farrar MD -[facility] Start: 01-09-2025 Non-patient / Non-visit Dr. Danial Salazar DO -[facility] Work Phone: Start: 01-09-2025 End: 01-26-2025 Evaluation and management of inpatient Washington Rosario MD Work Phone: [facility] Cardiac Thoracic Vascular Intensive Care Unit CTV ICU T1 Start: 01-08-2025 Non-patient / Non-visit [facility] Start: 01-07-2025 ambulatory BECKY MAST CR RAG PRODUCTION WORKER Work Phone: [facility] Work Phone: Start: 01-07-2025 Non-patient / Non-visit Dr. Richard White MD -[facility] Start: 01-07-2025 ambulatory BECKY MAST Facility:[facility] Start: 01-07-2025 Non-patient / Non-visit Dr. Washington Damico DO [facility] Work Phone: Start: 01-07-2025 End: 01-08-2025 Evaluation and management of inpatient Dr. Washington Damico DO [facility] Work Phone: Start: 01-07-2025 End: 01-07-2025 Patient encounter procedure Noe Nguyễn [place] -[facility] Work Phone: Start: 01-07-2025 End: 01-07-2025 ambulatory BECKY MAST MEDICINE MAN Work Phone: [facility] Work Phone: Start: 10-23-2024 End: 10-23-2024 Patient encounter procedure Layla Silver [place] -[facility] Work Phone: Start: 10-23-2024 End: 10-23-2024 ambulatory BECKY MAST Facility:[facility] Start: 10-02-2023 End: 10-03-2023 ambulatory BECKY MAST EVALUATOR TRANSFER STUDENTS-WEBSPHERE ADMINISTRATOR Facility:[facility] Start: 10-02-2023 End: 10-02-2023 Patient encounter procedure BECKY MAST EVALUATOR TRANSFER STUDENTS-WEBSPHERE ADMINISTRATOR [facility] Start: 09-26-2023 End: 09-27-2023 ambulatory BECKY MAST EVALUATOR TRANSFER STUDENTS-WEBSPHERE ADMINISTRATOR Facility:[facility] Start: 07-04-2022 End: 07-04-2022 Patient encounter procedure SHANNA MADRIGAL EVALUATOR TRANSFER STUDENTS-WEBSPHERE ADMINISTRATOR [facility] Start: 07-04-2022 End: 07-04-2022 Well adult monitoring check done SHANNA MADRIGAL EVALUATOR TRANSFER STUDENTS-WEBSPHERE ADMINISTRATOR [facility] Start: 06-28-2021 End: 06-28-2021 Patient encounter procedure SHANNA MADRIGAL EVALUATOR TRANSFER STUDENTS-WEBSPHERE ADMINISTRATOR [facility] Start: 06-27-2021 End: 06-27-[address] SHAWNA KEITA MD [facility] Start: 05-23-2021 End: 05-23-2021 Patient encounter procedure SHANNA MADRIGAL EVALUATOR TRANSFER STUDENTS-WEBSPHERE ADMINISTRATOR [facility] Procedures Date Procedure Procedure Detail Performing Clinician Start: 02-11-2025 X-ray of chest, PA a nd lateral views BECKY KHAN Work Phone: Start: 02-10-2025 History of coronary artery bypass grafting S/P CABG (coronary artery bypass graft) Billymaryann Gonzalez EVALUATOR TRANSFER STUDENTS - WEBSPHERE ADMINISTRATOR Work Phone: Start: 01-26-2025 Basic metabolic pane l calcium total Lacho Coreas MD Work Phone: Start: 01-25-2025 Radiologic exam ches t single view Tamara Gaines EVALUATOR TRANSFER STUDENTS - WEBSPHERE ADMINISTRATOR Work Phone: Start: 01-25-2025 Comprehensive metabo lic panel Luiz Lynne EVALUATOR TRANSFER STUDENTS - WEBSPHERE ADMINISTRATOR Work Phone: Start: 01-24-2025 Comprehensive metabo lic panel Luiz Lynne EVALUATOR TRANSFER STUDENTS - WEBSPHERE ADMINISTRATOR Work Phone: Start: 01-23-2025 Radiologic exam ches t single view Luiz Lynne EVALUATOR TRANSFER STUDENTS - WEBSPHERE ADMINISTRATOR Work Phone: Start: 01-23-2025 End: 01-23-2025 Comprehensive metabolic panel Luiz Lynne EVALUATOR TRANSFER STUDENTS - WEBSPHERE ADMINISTRATOR Work Phone: Start: 01-22-2025 Potassium serum plasma/whole blood Lacho Coreas MD Work Phone: Start: 01-22-2025 Potassium serum plasma/whole blood Lacho Coreas MD Work Phone: Start: 01-22-2025 Comprehensive metabo lic panel Luiz Block Guera EVALUATOR TRANSFER STUDENTS - WEBSPHERE ADMINISTRATOR Work Phone: Start: 01-21-2025 Ecg routine ecg w/le ast 12 lds trcg only w/o i&r Luiz Block Guera EVALUATOR TRANSFER STUDENTS - WEBSPHERE ADMINISTRATOR Work Phone: Start: 01-21-2025 Comprehensive metabo lic panel Luiz RobertDima Lynne EVALUATOR TRANSFER STUDENTS - WEBSPHERE ADMINISTRATOR Work Phone: Start: 01-21-2025 Radiologic exam ches t single view Luizjesenia Lynne EVALUATOR TRANSFER STUDENTS - WEBSPHERE ADMINISTRATOR Work Phone: Start: 01-20-2025 Comprehensive metabo lic panel Manolo Huff MD Work Phone: Start: 01-19-2025 Comprehensive metabo lic panel Manolo Huff MD Work Phone: Start: 01-19-2025 Radiologic exam ches t single view Billy Gonzalez EVALUATOR TRANSFER STUDENTS - WEBSPHERE ADMINISTRATOR Work Phone: Start: 01-18-2025 End: 01-18-2025 Calcium ionized Manolo Huff MD Work Phone: Start: 01-18-2025 Comprehensive metabo lic panel Luiz RobertDima Lynne EVALUATOR TRANSFER STUDENTS - WEBSPHERE ADMINISTRATOR Work Phone: Start: 01-18-2025 Radiologic exam ches t single view Billy Carlos EVALUATOR TRANSFER STUDENTS - WEBSPHERE ADMINISTRATOR Work Phone: Start: 01-17-2025 Radiologic exam ches t single view Billy Islaser EVALUATOR TRANSFER STUDENTS - WEBSPHERE ADMINISTRATOR Work Phone: Start: 01-17-2025 Comprehensive metabo lic panel Luiz RobertDima Lynne EVALUATOR TRANSFER STUDENTS - WEBSPHERE ADMINISTRATOR Work Phone: Start: 01-16-2025 Radiologic exam ches t single view Billy Gonzalez EVALUATOR TRANSFER STUDENTS - WEBSPHERE ADMINISTRATOR Work Phone: Start: 01-16-2025 Comprehensive metabo lic panel Tamara Gaines EVALUATOR TRANSFER STUDENTS - WEBSPHERE ADMINISTRATOR Work Phone: Start: 01-15-2025 Radiologic exam ches t single view Billy Gonzalez EVALUATOR TRANSFER STUDENTS - WEBSPHERE ADMINISTRATOR Work Phone: Start: 01-15-2025 Comprehensive metabo lic panel Tamara Gaines EVALUATOR TRANSFER STUDENTS - WEBSPHERE ADMINISTRATOR Work Phone: Start: 01-15-2025 Ecg routine ecg w/le ast 12 lds trcg only w/o i&r Job Simons MD Work Phone: Start: 01-15-2025 Radiologic exam ches t single view Job Simons MD Work Phone: Start: 01-15-2025 Calcium ionized Manolo Huff MD Work Phone: Start: 01-15-2025 Compatibility each u nit electronic Luiz Gillchristaldioni EVALUATOR TRANSFER STUDENTS - WEBSPHERE ADMINISTRATOR Work Phone: Start: 01-14-2025 End: 01-14-2025 Ecg routine ecg w/least 12 lds trcg only w/o i&r Lacho Coreas MD Work Phone: Start: 01-14-2025 Radiologic exam abdo men 1 view Tamara Christa Gaines EVALUATOR TRANSFER STUDENTS - WEBSPHERE ADMINISTRATOR Work Phone: Start: 01-14-2025 End: 01-14-2025 Potassium serum plasma/whole blood Lacho Coreas MD Work Phone: Start: 01-14-2025 Thoracentesis needle /cath pleura w/imaging Manolo Huff MD Work Phone: Start: 01-14-2025 End: 01-14-2025 Assay of phosphorus inorganic Manolo Huff MD Work Phone: Start: 01-14-2025 Radiologic exam ches t single view Billy Gonzalez EVALUATOR TRANSFER STUDENTS - WEBSPHERE ADMINISTRATOR Work Phone: Start: 01-14-2025 Ecg routine ecg w/le ast 12 lds trcg only w/o i&r Billy Islastaqueria SENA - WEBSPHERE ADMINISTRATOR Work Phone: Start: 01-14-2025 Basic metabolic pane l calcium total Billy Islastaqueria SENA - WEBSPHERE ADMINISTRATOR Work Phone: Start: 01-13-2025 End: 01-13-2025 Basic metabolic panel calcium total Lacho Coreas MD Work Phone: Start: 01-13-2025 Glucose quantitative blood xcpt reagent strip Lacho Coreas MD Work Phone: Start: 01-13-2025 End: 01-13-2025 Glucose quantitative blood xcpt reagent strip Washington Rosario MD Work Phone: Start: 01-13-2025 End: 01-13-2025 Glucose quantitative blood xcpt reagent strip Washington Rosario MD Work Phone: Start: 01-13-2025 End: 01-13-2025 Glucose quantitative blood xcpt reagent strip Washington Rosario MD Work Phone: Start: 01-13-2025 End: 01-13-2025 Glucose quantitative blood xcpt reagent strip Washington Rosario MD Work Phone: Start: 01-13-2025 Radiologic exam ches t single view Billy Islastaqueria SENA - WEBSPHERE ADMINISTRATOR Work Phone: Start: 01-13-2025 Ecg routine ecg w/le ast 12 lds trcg only w/o i&r Billy Islastaqueria SENA - WEBSPHERE ADMINISTRATOR Work Phone: Start: 01-13-2025 End: 01-13-2025 Glucose quantitative blood xcpt reagent strip Washington Rosario MD Work Phone: Start: 01-13-2025 Glucose quantitative blood xcpt reagent strip Washington Rosario MD Work Phone: Start: 01-13-2025 End: 01-13-2025 Basic metabolic panel calcium total Billy Islastaqueria SENA - WEBSPHERE ADMINISTRATOR Work Phone: Start: 01-13-2025 End: 01-13-2025 Glucose quantitative blood xcpt reagent strip Washington Rosario MD Work Phone: Start: 01-13-2025 Blood gases any combination ph pco2 po2 co2 hco3 Billy Gonzalez EVALUATOR TRANSFER STUDENTS - WEBSPHERE ADMINISTRATOR Work Phone: Start: 01-12-2025 End: 01-12-2025 Blood count hematocrit Lacho Coreas MD Work Phone: Start: 01-12-2025 End: 01-12-2025 Glucose quantitative blood xcpt reagent strip Washington Rosario MD Work Phone: Start: 01-12-2025 Glucose quantitative blood xcpt reagent strip Washington Rosario MD Work Phone: Start: 01-12-2025 End: 01-12-2025 TRANSFUSE RED BLOOD CELLS Lacho Coreas MD Work Phone: Start: 01-12-2025 End: 01-12-2025 Basic metabolic panel calcium total Manolo Huff MD Work Phone: Start: 01-12-2025 Blood gases any combination ph pco2 po2 co2 hco3 Manolo Huff MD Work Phone: Start: 01-12-2025 End: 01-12-2025 Cryoprecipitate each unit Manolo Vick MD Work Phone: Start: 01-12-2025 End: 01-12-2025 TRANSFUSE CRYOPRECIPITATE Manolo Vick MD Work Phone: Start: 01-12-2025 End: 01-12-2025 TRANSFUSE FRESH FROZEN PLASMA Manolo Huff MD Work Phone: Start: 01-12-2025 End: 01-12-2025 TRANSFUSE PLATELETS Manolo Huff MD Work Phone: Start: 01-12-2025 Compatibility each u nit electronic Lacho Coreas MD Work Phone: Start: 01-12-2025 End: 01-12-2025 TRANSFUSE RED BLOOD CELLS Manolo Vick MD Work Phone: Start: 01-12-2025 Radiologic exam ches t single view Manolo Huff MD Work Phone: Start: 01-12-2025 Blood gases any combination ph pco2 po2 co2 hco3 Manolo Huff MD Work Phone: Start: 01-12-2025 BEDSIDE SPIROMETRY Andr kevin Islaser EVALUATOR TRANSFER STUDENTS - WEBSPHERE ADMINISTRATOR Work Phone: Start: 01-12-2025 End: 01-12-2025 Glucose quantitative blood xcpt reagent strip Washington Rosario MD Work Phone: Start: 01-12-2025 End: 01-12-2025 Basic metabolic panel calcium total Luiz Lynne EVALUATOR TRANSFER STUDENTS - WEBSPHERE ADMINISTRATOR Work Phone: Start: 01-12-2025 Blood gases any combination ph pco2 po2 co2 hco3 Luiz Lynne EVALUATOR TRANSFER STUDENTS - WEBSPHERE ADMINISTRATOR Work Phone: Start: 01-12-2025 Radiologic exam ches t single view Billy Carlos EVALUATOR TRANSFER STUDENTS - WEBSPHERE ADMINISTRATOR Work Phone: Start: 01-12-2025 Ecg routine ecg w/le ast 12 lds trcg only w/o i&r Billy Carlos EVALUATOR TRANSFER STUDENTS - WEBSPHERE ADMINISTRATOR Work Phone: Start: 01-12-2025 End: 01-12-2025 Echo transesophag r-t 2d w/prb img acquisj i&r Luiz Lynne EVALUATOR TRANSFER STUDENTS - WEBSPHERE ADMINISTRATOR Work Phone: Start: 01-12-2025 Blood gases any combination ph pco2 po2 co2 hco3 Washington Rosario MD Work Phone: Start: 01-12-2025 Comprehensive metabo lic panel Washington Rosario MD Work Phone: Start: 01-12-2025 End: 01-12-2025 Cabg w/arterial graft three arterial grafts Lacho Coreas MD Work Phone: Start: 01-12-2025 End: 01-12-2025 Comprehensive metabolic panel Billy Gonzalez EVALUATOR TRANSFER STUDENTS - WEBSPHERE ADMINISTRATOR Work Phone: Start: 01-12-2025 Lipid panel Luiz Birmingham EVALUATOR TRANSFER STUDENTS - WEBSPHERE ADMINISTRATOR Work Phone: Start: 01-12-2025 Lipid 1996 panel - S hay or Plasma Billy Gonzalez EVALUATOR TRANSFER STUDENTS - WEBSPHERE ADMINISTRATOR Work Phone: Start: 01-11-2025 Thromboplastin time partial plasma/whole blood Billy Gonzalez EVALUATOR TRANSFER STUDENTS - WEBSPHERE ADMINISTRATOR Work Phone: Start: 01-11-2025 Antibody screen PCP NON E Comment on above: Order Comment: Speci men is valid for 3 days - nurse to verify valid specimen Performed By: #### L [id number] ####Lease Administration Supervisor: CHELSIE ISAACS ([id number])[facility] BLOOD [facility] ([address] Start: 01-11-2025 ABO and Rh group [Ty pe] in Blood by Confirmatory method Luiz Lynne EVALUATOR TRANSFER STUDENTS - WEBSPHERE ADMINISTRATOR Work Phone: Start: 01-11-2025 Blood typing serologic abo Luiz Lynne EVALUATOR TRANSFER STUDENTS - WEBSPHERE ADMINISTRATOR Work Phone: Start: 01-11-2025 Thromboplastin time partial plasma/whole blood Billy Gonzalez EVALUATOR TRANSFER STUDENTS - WEBSPHERE ADMINISTRATOR Work Phone: Start: 01-11-2025 TTE w or wo fol wcon,Doppler Billy Gonzalez EVALUATOR TRANSFER STUDENTS - WEBSPHERE ADMINISTRATOR Work Phone: Start: 01-11-2025 Comprehensive metabo lic panel Billy Gonzalez APRN - WEBSPHERE ADMINISTRATOR Work Phone: Start: 01-10-2025 Thromboplastin time partial plasma/whole blood Billy Gonzalez APRN - WEBSPHERE ADMINISTRATOR Work Phone: Start: 01-10-2025 Thromboplastin time partial plasma/whole blood Billy Gonzalez EVALUATOR TRANSFER STUDENTS - WEBSPHERE ADMINISTRATOR Work Phone: Start: 01-10-2025 Comprehensive metabo lic panel Billy Gonzalez EVALUATOR TRANSFER STUDENTS - WEBSPHERE ADMINISTRATOR Work Phone: Start: 01-09-2025 Thromboplastin time partial plasma/whole blood Billy Kwan CNP Work Phone: Start: 01-09-2025 Iadna s aureus methi cillin resist amp probe tq Billy Kwan CNP Work Phone: Start: 01-09-2025 Comprehensive metabo lic panel Billy Kwan CNP Work Phone: Start: 01-09-2025 Lipid panel Billy Kwan CNP Work Phone: Start: 01-09-2025 Ct thorax w/o contra st material Billy Kwan CNP Work Phone: Start: 01-09-2025 Dup-scan xtr veins complete bilateral study Billy Kwan CNP Work Phone: Start: 01-09-2025 Radiologic exam ches t single view Billy Kwan CNP Work Phone: Start: 01-09-2025 Duplex scan extracra nial art compl bi study Billy Kwan CNP Work Phone: Start: 01-09-2025 Ecg routine ecg w/le ast 12 lds trcg only w/o i&r Billy Kwan CNP Work Phone: Start: 01-09-2025 Blood count complete automated Billy Kwan CNP Work Phone: Start: 01-08-2025 Coagulation time, activated BECKY MAST MEDICINE MAN Work Phone: Start: 01-08-2025 Estimated creatinine clearance BECKY MAST MEDICINE MAN Work Phone: Start: 01-07-2025 X-ray of chest, PA a nd lateral views BECKY MAST MEDICINE MAN Work Phone: Start: 01-07-2025 D-dimer assay, quantitative BECKY MAST MEDICINE MAN Work Phone: Comment on above: NORMAL D-Dimer level (<0.50) indicates no DVT or PE. Start: 01-07-2025 Estimated creatinine clearance BCEKY KHAN Work Phone: Start: 06-05-2022 Lesion (morphologic abnormality) SHANNA MADRIGAL EVALUATOR TRANSFER STUDENTS-WEBSPHERE ADMINISTRATOR Comment on above: removal of cancerous lesion on right side Start: 09-04-2016 End: 09-29-2016 *BMP Mitchel Ruth MD Start: 08-29-2016 End: 08-30-2016 *BMP Mitchel Ruth MD Start: 08-25-2016 End: 08-25-2016 Coagulation factor induced.INR assay in platelet poor plasma Mitchel Ruth MD Start: 07-13-2016 End: 07-13-2016 Follow Up Appt Other Layla overton PA-C Work Phone: Start: 01-03-2016 End: 01-03-2016 Follow Up Appt 6 months Mitchel Ruth MD Start: 01-03-2016 End: 01-03-2016 MMM Mitchel Ruth MD Start: 07-01-2015 End: 07-01-2015 Electrocardiogram, complete Layla Silver PA-C Work Phone: Start: 07-01-2015 End: 07-01-2015 Follow Up Appt 6 months Layla dash PA-C Work Phone: Start: 07-01-2015 End: 07-01-2015 PFM Layla Silver PA-C Work Phone: Start: 12-30-2014 End: 12-31-2014 Documentation of current medications Mitchel Ruth MD Start: 12-30-2014 End: 12-30-2014 Follow Up Appt 6 months Mitchel Ruth MD Start: 12-30-2014 End: 12-30-2014 MMM Mitchel Ruth MD Start: 07-02-2014 End: 10-28-2014 *BMP Layla Silver PA-C Work Phone: Start: 2014 End: 2014 Follow Up Appt 6 months Layla dash PA-C Work Phone: Start: 2014 End: 2014 Follow Up Appt Other Layla overton PA-C Work Phone: Start: 2014 End: 2014 PFM Layla Silver PA-C Work Phone: Start: 04-23-2014 End: 04-28-2014 *BMP Mitchel Ruth MD Start: 04-23-2014 End: 04-23-2014 Electrocardiogram, complete Mitchel Ruth MD Start: 04-23-2014 End: 04-23-2014 Follow Up Appt 6 weeks Mitchel Ruth MD Start: 04-23-2014 End: 04-28-2014 Magnesium Mitchel Ruth MD Start: 04-23-2014 End: 04-23-2014 MMM Mitchel Ruth MD Start: 04-23-2014 End: 04-29-2014 Nuclear stress test -exercise Mitchel Ruth MD Start: 08-13-1981 Cyst (morphologic abnormality) SHANNA MADRIGAL EVALUATOR TRANSFER STUDENTS-WEBSPHERE ADMINISTRATOR History of coronary artery bypass grafting S/P CABG x 4 BECKY MAST EVALUATOR TRANSFER STUDENTS-WEBSPHERE ADMINISTRATOR History of coronary artery bypass grafting S/P CABG x 4 BECKY MAST MEDICINE MAN Work Phone: History of coronary artery bypass grafting S/P CABG x 4 Noe MALLORY History of coronary artery bypass grafting S/P CABG (coronary artery bypass graft) Billy Gonzalez EVALUATOR TRANSFER STUDENTS - WEBSPHERE ADMINISTRATOR Work Phone: Injection of eye BECKY MAST EVALUATOR TRANSFER STUDENTS-WEBSPHERE ADMINISTRATOR Plan of Treatment Date Care Activity Detail Author Start: 01-12-2030 Lipid panel [facility] Start: 04-13-2025 Influenza vaccination Influenza Vaccine (#1) [facility] Start: 03-10-2025 End: 03-10-2025 Telemedicine consultation with patient 03/10/2025 11:30 AM EDT Telemedicine [facility] Thoracic [facility] [address] [place] [id number] Billy Gonzalez, EVALUATOR TRANSFER STUDENTS - WEBSPHERE ADMINISTRATOR [address] [place], [place] [id number] [facility] Thoracic [facility] Start: 02-11-2025 Evaluation of diagnostic study results [facility] Start: 02-10-2025 End: 02-10-[address] [facility] Thoracic [facility] Start: 01-08-2025 [facility] Start: 01-08-2025 Electrocardiographic procedure [facility] Start: 01-08-2025 Patient discharge [facility] Start: 01-07-2025 End: 01-08-2025 Partial thromboplastin time, activated [facility] Start: 01-07-2025 Following clinical pathway protocol [facility] Start: 01-07-2025 Ambulation without limitation [facility] Start: 01-07-2025 Assessment of risk of venous thromboembolism [facility] Start: 01-07-2025 Cardiac rehabilitation - phase 1 [facility] Start: 01-07-2025 Insertion of catheter into peripheral vein [facility] Start: 01-07-2025 Measuring intake and output [facility] Start: 01-07-2025 Oxygen therapy [facility] Start: 01-07-2025 Providing care according to standard [facility] Start: 01-07-2025 Referral to tone artist apprentice [facility] Start: 01-07-2025 Tobacco use cessation education [facility] Start: 01-07-2025 [facility] Start: 01-07-2025 Patient referral [facility] Work Phone: Start: 01-07-2025 Verification routine [facility] Start: 01-07-2025 Hospital admission, emergency, from emergency room, medical nature [facility] Start: 01-07-2025 Admission procedure [facility] Start: 01-07-2025 End: 01-08-2025 [facility] Start: 01-07-2025 Evaluation of diagnostic study results [facility] Start: 01-07-2025 [facility] Start: 11-04-2024 COVID-19 Vaccine () COVID-19 Vaccine () [email or web address] Start: 11-04-2024 [email or web address] Start: 08-13-2024 Medicare Advantage Annual Wellness Visit Medicare Advantage Annual Wellness Visit [email or web address] Start: 08-13-2024 [email or web address] Start: 07-20-2017 End: 07-20-2017 Appointment Appointment [facility] Work Phone: Start: 01-01-2017 End: 01-01-2017 Appointment Appointment [facility] Work Phone: Start: 01-01-2017 End: 01-01-2017 Follow Up Appt 6 months Follow Up Appt 6 months [facility] Work Phone: Start: 01-01-2017 End: 01-01-2017 MMM MMM [facility] Work Phone: Start: 09-04-2016 End: 09-29-2016 *BMP *BMP [facility] Work Phone: Start: 08-29-2016 End: 08-30-2016 *BMP *BMP [facility] Work Phone: Start: 08-25-2016 End: 08-25-2016 Coagulation factor induced.INR assay in platelet poor plasma *PT/INR [facility] Work Phone: Start: 07-13-2016 End: 07-13-2016 Follow Up Appt Other Follow Up Appt Other [facility] Work Phone: Start: 01-03-2016 End: 01-03-2016 Follow Up Appt 6 months Follow Up Appt 6 months [facility] Work Phone: Start: 01-03-2016 End: 01-03-2016 MMM MMM [facility] Work Phone: Start: 07-01-2015 End: 07-01-2015 Electrocardiogram, complete EKG (In office) [facility] Work Phone: Start: 07-01-2015 End: 07-01-2015 Follow Up Appt 6 months Follow Up Appt 6 months [facility] Work Phone: Start: 07-01-2015 End: 07-01-2015 PFM PFM [facility] Work Phone: Start: 12-30-2014 End: 12-30-2014 Follow Up Appt 6 months Follow Up Appt 6 months [facility] Work Phone: Start: 12-30-2014 End: 12-30-2014 MMM MMM [facility] Work Phone: Start: 07-02-2014 End: 10-28-2014 *BMP *BMP [facility] Work Phone: Start: 2014 End: 2014 Follow Up Appt 6 months Follow Up Appt 6 months [facility] Work Phone: Start: 2014 End: 2014 Follow Up Appt Other Follow Up Appt Other [facility] Work Phone: Start: 2014 End: 2014 PFM PFM [facility] Work Phone: Start: 04-23-2014 End: 04-28-2014 *BMP *BMP [facility] Work Phone: Start: 04-23-2014 End: 04-23-2014 Electrocardiogram, complete EKG (In office) [facility] Work Phone: Start: 04-23-2014 End: 04-23-2014 Follow Up Appt 6 weeks Follow Up Appt 6 weeks [facility] Work Phone: Start: 04-23-2014 End: 04-28-2014 Magnesium *Magnesium [facility] Work Phone: Start: 04-23-2014 End: 04-23-2014 MMM MMM [facility] Work Phone: Start: 04-23-2014 End: 04-23-2014 Nuclear stress test -exercise Nuclear stress test -exercise [facility] Work Phone: Start: 1965 DTaP/Tdap/Td Vaccines (1 - Tdap) DTaP/Tdap/Td Vaccines (1 - Tdap) [facility] Start: 1965 [facility] Start: 1964 Hepatitis C screening [facility] Start: 1958 Depression Screening Depression Screening [facility] Start: 1958 [facility] Start: 1946 Screening for osteoporosis [facility] Anion gap in Serum or Plasma [facility] Basic metabolic 2008 panel with ionized calcium - Serum or Plasma [facility] BUN/Creatinine ratio [facility] Calcium [Mass/volume ] in Serum or Plasma [facility] Carbon dioxide, tota l [Moles/volume] in Central venous blood [facility] CBC W Auto Different ial panel - Blood [facility] Comprehensive metabo lic 1999 panel - Serum or Plasma [facility] Creatinine [Mass/vol ume] in Serum or Plasma [facility] Erythrocyte mean cor puscular volume determination [facility] Glucose [Mass/volume ] in Serum or Plasma [facility] Hematocrit [Volume F raction] of Blood [facility] Hemoglobin [Mass/vol ume] in Blood [facility] Leukocytes [#/volume ] in Blood [facility] Lipid 1996 panel - S hay or Plasma [facility] Mean corpuscular hem oglobin concentration determination [facility] Mean corpuscular hem oglobin determination [facility] Measurement of renal function [facility] Natriuretic peptide. B prohormone N-Terminal [Mass/volume] in Serum or Plasma [facility] Neutrophil count [facility] Neutrophil percent differential count [facility] Patient Education [facility] Work Phone: Patient referral [facility] Work Phone: Platelets [#/volume] in Blood [facility] Red blood cell count [facility] Red cell distributio n width determination [facility] Serum chloride measurement [facility] Sodium measurement [facility] Urea nitrogen [Mass/ volume] in Serum or Plasma [facility] XR Chest PA and Lateral [facility] Immunizations Immunization Date Immunization Notes Care Provider Fa [facility] 05-07-2024 influenza virus vacc ine, unspecified formulation Billy Islaser EVALUATOR TRANSFER STUDENTS - WEBSPHERE ADMINISTRATOR Work Phone: [facility] 08-16-2023 RSV vaccine, preF A- preF B, recombinant BECKY MAST EVALUATOR TRANSFER STUDENTS-WEBSPHERE ADMINISTRATOR [facility] 05-11-2023 SARS-CoV-2 mRNA (nvtafiomtjt-mufo-cwyamz e) vaccine BECKY MAST EVALUATOR TRANSFER STUDENTS-WEBSPHERE ADMINISTRATOR [facility] Comment on above: Result Comment: Madi Alexander. IM left upper arm 05-05-2023 influenza virus vacc ine, unspecified formulation BECKY MAST EVALUATOR TRANSFER STUDENTS-WEBSPHERE ADMINISTRATOR [facility] 04-26-2022 influenza virus vacc ine, unspecified formulation SHANNA MADRIGAL EVALUATOR TRANSFER STUDENTS-WEBSPHERE ADMINISTRATOR [facility] 11-29-2021 SARS-CoV-2 (COVID-19 ) mRNA-1273 vaccine SHANNAGERRY BUSTILLOSERS EVALUATOR TRANSFER STUDENTS-WEBSPHERE ADMINISTRATOR [facility] 06-23-2021 SARS-CoV-2 (COVID-19 ) mRNA-1273 vaccine SHANNA MADRIGAL EVALUATOR TRANSFER STUDENTS-WEBSPHERE ADMINISTRATOR [facility] 06-03-2021 influenza virus vacc ine, unspecified formulation SHANNA MADRIGAL EVALUATOR TRANSFER STUDENTS-WEBSPHERE ADMINISTRATOR [facility] 11-26-2020 SARS-CoV-2 (COVID-19 ) mRNA-1273 vaccine SHANNA MADRIGAL EVALUATOR TRANSFER STUDENTS-WEBSPHERE ADMINISTRATOR [facility] Comment on above: Result Comment: 2020: [id number] 10-29-2020 SARS-CoV-2 (COVID-19 ) mRNA-1273 vaccine SHANNA MADRIGAL EVALUATOR TRANSFER STUDENTS-WEBSPHERE ADMINISTRATOR [facility] Comment on above: Result Comment: 2020: [id number] 04-02-2020 influenza virus vacc ine, unspecified formulation SHANNA MADRIGAL EVALUATOR TRANSFER STUDENTS-WEBSPHERE ADMINISTRATOR [facility] 05-02-2019 influenza virus vacc ine, unspecified formulation SHANNA MADRIGAL EVALUATOR TRANSFER STUDENTS-WEBSPHERE ADMINISTRATOR [facility] 04-10-2019 zoster vaccine recombinant SHANNA MADRIGAL EVALUATOR TRANSFER STUDENTS-WEBSPHERE ADMINISTRATOR [facility] 12-24-2018 zoster vaccine recombinant SHANNA MADRIGAL EVALUATOR TRANSFER STUDENTS-WEBSPHERE ADMINISTRATOR [facility] 04-25-2018 influenza virus vacc ine, unspecified formulation SHANNA MADRIGAL EVALUATOR TRANSFER STUDENTS-WEBSPHERE ADMINISTRATOR [facility] 04-25-2018 pneumococcal conjuga te vaccine, 13 valent SHANNA MADRIGAL EVALUATOR TRANSFER STUDENTS-WEBSPHERE ADMINISTRATOR [facility] 04-25-2018 pneumococcal polysaccharide vaccine, 23 valent SHANNA MADRIGAL EVALUATOR TRANSFER STUDENTS-WEBSPHERE ADMINISTRATOR [facility] 04-30-2017 influenza virus vacc ine, unspecified formulation SHANNA MADRIGAL EVALUATOR TRANSFER STUDENTS-WEBSPHERE ADMINISTRATOR [facility] 04-30-2017 pneumococcal conjuga te vaccine, 13 valent SHANNA MADRIGAL EVALUATOR TRANSFER STUDENTS-WEBSPHERE ADMINISTRATOR [facility] 04-21-2016 influenza virus vacc ine, unspecified formulation SHANNAGERRY MADRIGAL EVALUATOR TRANSFER STUDENTS-WEBSPHERE ADMINISTRATOR [facility] 05-10-2015 influenza virus vacc ine, unspecified formulation SHANNA MADRIGAL EVALUATOR TRANSFER STUDENTS-WEBSPHERE ADMINISTRATOR [facility] 05-24-2014 zoster vaccine, live SHANNA MADRIGAL EVALUATOR TRANSFER STUDENTS-WEBSPHERE ADMINISTRATOR [facility] Payers Date Payer Category Payer Private Health Insurance [id number] 2025 Self-pay [id number] 2024 Self-pay [address] [facility] PAMELA BLUE CROSS [id number] 2024 Medicare HMO [id number] 2023 Unknown [id number] 1945 Unknown [id number] [id number]. 2.627 1945 Unknown [id number] 2.16.840.1.027142.3.579. 2.627 1945 Unknown [id number] 2.16.840.1.624886.3.579. 2.627 Unknown [id number] 2.16.840.1.908536.3.579. 2.462 Unknown [id number] 2.16.840.1.606549.3.579. 2.462 Unknown [id number] 2.16.840.1.275392.3.579. 2.462 Unknown [id number] 2.16.840.1.862675.3.579. 2.462 Unknown [id number] 2.16.840.1.260854.3.579. 2.462 Unknown [id number] 2.16.840.1.569887.3.579. 2.462 Unknown [id number] 2.16.840.1.583176.3.579. 2.462 Unknown [id number] 2.16.840.1.801990.3.579. 2.462 Unknown [id number] 2.16.840.1.131397.3.579. 2.462 Unknown [id number] 2.16840.1.693504.3.579. 2.462 Unknown [id number] 2.16.840.1.624798.3.579. 2.462 Unknown [id number] 2.16840.1.197327.3.579. 2.462 Unknown [id number] 2.16.840.1.457030.3.579. 2.462 Social History Date Type Detail Facility Start: 01-17-2021 End: 01-09-2025 Never smoked tobacco (finding) [facility] Sex Assigned At [facility] Start: 03-28-2014 Alcohol Alcohol [facility] Start: 03-28-2014 Drugs Drugs [facility] Start: 03-28-2014 Lives Lives [facility] Start: 03-28-2014 Tobacco Use Tobacco Use [facility] Start: 1945 Sex Assigned At Female [facility] Start: 01-26-2025 End: 02-10-2025 Alcoholic beverage intake Lifetime non-drinker (finding) [facility] Start: 01-09-2025 End: 01-26-2025 History of Social function [facility] Start: 01-09-2025 End: 01-26-2025 Alcohol Use Disorder Identification Test - Consumption [AUDIT-C] [facility] How often to you hav e a drink containing alcohol? Monthly or less [facility] How many standard dr inks containing alcohol do you have on a typical day? 1 or 2 [facility] How often do you hav e 6 or more drinks on 1 occasion? Never [facility] Start: 1945 Sex assigned at [facility] Start: 01-08-2025 Sex Female (finding) [facility] Medical Equipment Procedure Code Equipment Code Equipment Origin al Text Equipment Identifier Dates [id number] Start: 01-12-2025 Goals Date Patient Goal Desired Activity /State Functional Status Date Assessment Result Facility 01-08-2025 Functional status Ambulates;Bath room Privilege [facility] Work Phone: 01-07-2025 Functional status Up ad elizabeth [facility] Work Phone: [facility] Mental Status Date Assessment Result Facility 01-08-2025 Cognitive function Voice/Name [facility] Work Phone: 01-07-2025 Cognitive function Voice/Name [facility] Work Phone: 01-07-2025 Cognitive function Voice/Name [facility] Work Phone: Clinical Notes 10-06-2020 to 02-24-2025 Billy Gonzalez APRN - ROBERTO - 02/24/2025 11:00 AM Carolyn Ramirez RN - 01/26/2025 2:23 PM Avis Salas RN - 01/18/2025 9:50 AM Pam Adams RN - 01/15/2025 7:53 AM EDT Note Date & Type Note Facility 02-24-2025 History of Present illness Narrative Images from the original note were not included. [facility] Group: [facility] [address] [facility] [address] Dept: [phone] Dept Loc: [phone] Visit type: Established patient - in person Surgery/Procedure: s/p CABGx4 (BLANCO to LAD, svg to PDA, svg to OM1, svg to diag) with Dr. Coreas on 01/12/25 Reason for Visit: post op follow up Assessment/Plan Diagnosis: MVCAD s/p CABGx 4 HTN GERD Afib Macular degeneration Plan: POD#43 Day from Discharge (01/26/25): # 29 -Reviewed current meds: Management per Cardiology: no changes made -Surgical Incisions: healing appropriately, well approximated, no s/s of infection -Physical therapy as outlined in discharge instructions: Not ready for Cardiac Rehab Not ready to drive -Weight restriction measures 5-8 weeks from date of surgery- 20lbs weight restriction approximate end date: 03/09/25 -Follow up with PCP and Cards (Dr. Ruth) -Plan follow up 2 week virtual. Patient to call with any questions or concerns. They verbalized understanding Subjective HPI: 79-year-old female with past medical history of macular degeneration, GERD, paroxysmal A-fib, hypertension, presented to the ED at [facility] with complaints of worsening shortness of breath. Per patient she has always had shortness of breath but it has started to get worse recently. She also noted a dull ache radiating feeling sporadically at times that started to happen more frequently. She said these episodes initially started off lasting only a couple minutes but one of the last ones happened about 30 minutes. Cardiac enzymes were elevated in the ED and cardiology was consulted. Of note she does follow with cardiology as an outpatient for her proximal A-fib and she had called prior to her ED visit on 01/07. Patient mated with NSTEMI and cath was scheduled. Cardiac cath was completed 01/08/2025 which showed multivessel CAD involving left main She was transferred to [facility] for surgical evaluation. Surgery was discussed and she consented. She was taken to the operating room on 01/12/[address] Coreas where she underwent CABGx4 (BLANCO to LAD, svg to PDA, svg to OM1, svg to diag. Postoperative course was uncomplicated. She progressed nicely postoperatively but due to her physical activity discharge to SNF was recommended by PT/OT. Once she was medically hemodynamically stable she was discharged to [facility] on 01/26/25, POD#14. 02/24/25: 79 y.o. female who presents today for post op follow up. Patient is doing well postoperatively. She presented in a wheelchair but does not use often at home just needed it due to where she parked at. She was discharged from facility at early February and has been some since. Medications cleaned up on EMR. Recently started on hydrochlorothiazide by cards. Incision healing appropriately no signs of infection. Not ready to drive not ready for cardiac rehab discussed range of motion and midsternal precautions. All questions answered no other needs at this time we will plan virtual visit in 2 weeks unless needed earlier and they will call. Objective Vitals: 02/24/25 1106 BP: 132/66 Pulse: Wt Readings from Last 3 Encounters: 02/24/25 142 lb (64.4 kg) 01/26/25 144 lb 6.4 oz (65.5 kg) Physical Exam Cardiovascular: Rate and Rhythm: Normal rate and regular rhythm. Heart sounds: Normal heart sounds. No murmur heard. No friction rub. Pulmonary: Effort: Pulmonary effort is normal. Skin: General: Skin is warm and dry. Capillary Refill: Capillary refill takes less than 2 seconds. Findings: Bruising and ecchymosis present. Comments: Surgical Incisions: well approximate; clean dry with no drainage noted. Surrounding skin no redness, warmth, or signs of infection noted. Neurological: Mental Status: She is alert. Psychiatric: Behavior: Behavior is cooperative. Labs/Imaging/Testing: reviewed EMR, see A&P for pertinent diagnostic results related to office visit Disclaimer INFORMED CONSENT:The nature and purpose of the proposed treatment or procedure have been discussed. The risks and benefits of the proposed treatment or procedures have been reviewed. Alternatives have been reviewed in addition to the risks and benefits of not receiving treatments or undergoing procedures. Pursuant to this discussion, the patient agrees to undergo the proposed treatment or procedure. Captured images seen in this note from are not a substitute for a comprehensive interpretation of the entire data set as reflected by the interpreting physician with regard to radiology, echocardiography, and other diagnostic images. This note may have been dictated using [employer] Practice Edition 2.6 and/or [employer] Voice Recognition Feature. The document was proofread, however unrecognized voice recognition public interviewer errors may be present. documented in this encounter [facility] 02-11-2025 Radiology Diagnostic study note [facility] [address] [place], [place] [address] Chest PA and Lateral MR#: [id number] Acct: [id number] Name: RITIKA SANTANA Rep #: [id number] : 1945 F 79 From: Brien Amador MD PCP: REIN GRANT Status: REG CLI Study:Chest PA and Lateral Date of Exam: 02/11/25 Exam# [id number] Ordering Dr: Noe Nguyễn PROCEDURE: CHEST PA AND LATERAL 02/11/2025 REASON FOR EXAM: ABNORMAL LUNG SOUNDS, HX PLEURAL EFFUSION TECHNIQUE: CHEST PA AND LATERAL COMPARISON: PA and lateral chest of 01/07/2025. RAD/Chest PA and Lateral IMPRESSION: The lateral view is limited by significant patient motion. Generalized osteopenia with significant kyphosis again noted. No interval osseous change is appreciated. Interval sternotomy. Small right and uqomg-[id number] left pleural effusions are now seen. No pulmonary edema is identified. No focal infiltrate is seen. No pneumothorax is evident. Borderline cardiomegaly, not clearly changed since the prior study. Reading Location: [place] [address] CC: ERIN GRANT; [place] Bright ~ Almond Paste Molder: Signed [facility] 02-02-2025 Note Patient Choice Patient Name: RITIKA SANTANA Date of : 1945 All Providers Sent Referral Name: [facility] Address: [address] [place] [address] 01-26-2025 Nurse Note Report called to SNF. Nursing found patients potassium tablets on her stomach this morning- she did not receive her total potassium dose. Patient took potassium @ 0951 am- will recheck blood levels per provider order. Addendum- ok per provider to recheck potassium with morning labs tomorrow. 01/15/25 0738 Provider Notification Reason for Communication Review Case Provider Name Toro Ohara Provider Role CONSTANCE Method of Communication Secure chat Response No new orders Notification Date 01/15/25 Notification Time 0738 ROSALIO Lynne contacted, via secure message, to inform of low serial platelet counts; notice/message generated by default, reflecting concern for HIT. Prompt response received. No new orders received nor interventions advised. Will continue to monitor. 0701- pt taken to OR. Wound Care consulted for Pressure Injury Prevention. Pt's Geovany= 20, pt is no longer at risk at this time. Skin Care Precaution order set ordered. Will continue to follow peripherally. Please vocera or secure chat message with any questions. Blanca Murrell RN Spoke on the phone with MD [place] Rosario about patient's arrival to the unit. Let MD know patient's vital signs were stable, cath site in right groin soft, no signs of bleeding or hematoma, dressing clean dry and intact pulses all palpable. Also informed him patient on heparin drip running but needed orders to pull new bag. MD stated to stop heparin drip at this time and patient would be evaluated in the morning. Asked if MD wanted lab work done this morning. MD stated no labs at this time or morning labs yet and patient would be evaluated later this morning closer to 5-6am. documented in this encounter [facility] 01-26-2025 History of Present illness Narrative Department of Psychiatry Progress Note Total Time: 20 minutes SUBJECTIVE: I am both excited and nervous about leaving later today for SNF. OBJECTIVE Per pt's request her was present during the session. She is looking forward to discharge to SNF later today, also a little nervous. Pt reported several anxiety episodes mostly happening when walking or being in the bathroom. Pt stated that she has not noticed significant improvement with Vistaril, but also stated that she does not think she had on Sunday. Overall, pt motivated to work with therapies; some anxiety still present. No SI/HI. At this time, no manic, no psychotic symptoms present. MENTAL STATUS EXAM Mental Status Exam: Appearance: hospital gown Behavior: cooperative Activity normal Speech: spontaneous, normal rate Mood: somewhat anxious, Affect: congruent with mood Associations: goal directed Thought content: some worries present Thought process: logical, organized Orientation: oriented in all spheres Attention good Concentration good Insight: good Judgment: good Suicidal Intentions: no Suicidal Plan: no ASSESSMENT AND PLAN Unspecified Anxiety Focused on decreasing anxiety symptoms and supportive intervention. No SI/HI, pt is future oriented. Wished pt well on, pt getting ready for discharge. Images from the original note were not included. OCCUPATIONAL THERAPY [facility] Treatment Note Name/MRN: Ritika Santana ([id number]) Date of : 1945 Age: 79 y.o. Room/Bed: T1-103/T1-103 A Discharge Recommendation: IPR- If Pt declined strongly recommending- Home with Home health OT, 24 hour supervision or assist- Pending approval of OTR/L Equipment Needed: No Assessment Currently, Pt required SBA for functional transfers and MIN A for mobility trial with and without rollator with improved safety awareness compared to previous TX session. Pt required SUP I for LB ADL and SBA for grooming task in standing at sink level. Pt required SBA for toilet transfer and SUP after set up for all aspects of toilet hygiene including clothing mgmt. Pt is most limited by decreased functional endurance, decreased mobility and generalized weakness hindering indep and safety with functional tasks. Pt communicated that and their 2 daughter in laws are able to assist for safe discharge home. Recommending IPR- If Pt/ family declined -strongly recommending: Home with HH OT, & Home with 24 HR assist in order to achieve highest level of function. Subjective Pt seated in chair upon entry- Pt recently finished working with PT. A & O X 4. Pt denied pain however, endorsed fatigue. Pt denied pain. Pt pleasant and agreeable to OT TX. Pt stated I'm feeling more confident in myself compared to last week at least! Noted Pt with good compliance of sternal precautions maintained throughout TX session. Pt requested to return to chair at the EOS. Call light placed within reach and all needs met. Pain: Pt denies any current pain. Medical Precautions: No active isolations Proper PPE donned/doffed in accordance with facility standards. Fall Risk: Suazo Fall Risk Score: 65 (High Risk) Precautions/Restrictions: Sternal Precautions: No lifting greater than 10 lbs. Ok for modified UE precautions using Keep Your Move in the Tube technique Family/Caregiver Present: spouse Objective ADLs LE Dressing: Supervision Toileting: SBA Grooming: SBA LE Bathing: SBA Bed Mobility Pt up in chair upon arrival Transfers/Mobility Sit to stand: Contact Guard Stand to sit: SBA Sitting balance: Independent Standing balance: SBA- Pt instructed on grooming task standing at sink level approx 2.5 minutes with unilateral support to wash face, and hands with verbal cues for improved functional reach of 2/2 items located on sink counter. Functional mobility: Min Assist- Pt instructed on functional mobility from chair <> bathroom x 2 trials with/ without FWW- Per Pt's request. Noted improved safety awareness without use of fww regarding obstacle negotiation compared to previous TX session. Pt required tactile cues for increased L step length, increased NANCY and improved posture. Device(s) used: None and Front wheeled walker Exercise Comment: Standing marches 10 reps in standing with unilateral support of counter + tactile cues for improved R knee flexion in order to increase ROM, strength and endurance for increased indep with self care tasks in standing. Plan Continue acute OT per plan of care. Safety/Education Safety Safety Devices in place: All fall risk precautions in place, call light within reach, left in chair, chair alarm in place, gait belt, and nurse notified Restraints: No Education Education Given To: patient Education Provided: OT Role, Plan of Care, Home Exercise Program, Precautions, ADL Adaptive Strategies, Transfer Training, Energy Conservation, Orientation, Discharge Recommendations, Benefits of Increasing Activity, and Breathing Techniques Education Method: Verbal, Demonstration, and Teach Back Barriers to Learning: Vision Education Outcome: Verbalized Understanding and Continued Education Needed AM-PAC AM-PAC Inpatient Daily Activity Raw Score: 21 ADL Inpatient CMS G-Code Modifier: CJ Goals Patient Stated Goal: to go home Encounter Problems Encounter Problems (Active) Bathing Patient will utilize adaptive techniques to bathe body mod indep. (Not Addressed) Start: 01/14/25 Expected End: 02/11/25 Dressing Upper Extremities Patient will complete upper body dressing with SUP. (Not Addressed) Start: 01/14/25 Expected End: 02/11/25 Dressings Lower Extremities Patient will dress lower body SUP with AE prn. (Progressing) Start: 01/14/25 Expected End: 02/11/25 Instrumental Activities of Daily Living Patient will implement energy conservation techniques during ADLs with no cues. (Progressing) Start: 01/14/25 Expected End: 02/11/25 Safety Patient will adhere to sternal precautions during all functional mobility and ADLs in order to demonstrate improved understanding and promote healing post op. (Progressing) Start: 01/14/25 Expected End: 02/11/25 Toileting Patient will complete toileting tasks at standard toilet with supervision. (Progressing) Start: 01/14/25 Expected End: 02/11/25 Transfers Patient will complete functional transfer with least restrictive device with supervision in order to prepare for ambulation. (Progressing) Start: 01/14/25 Expected End: 02/11/25 Therapy Time Individual Co-treatment Time In 1003 Time Out 1019 Minutes 16 Timed Code Treatment Minutes: 16 Minutes (1-ADL) JULIET Diaz Cosigned by River Jean OT at 01/26/2025 11:33 AM EDT Images from the original note were not included. PHYSICAL THERAPY [facility] Treatment Note Name/MRN: Ritika Santana ([id number]) Date of : 1945 Age: 79 y.o. Room/Bed: T1-103/T1-103 A Discharge Recommendation: IP Rehab Equipment Needed: Yes Mobility Devices: Walker Walker: Rollator (4 Wheeled) Other: TBD Assessment Pt requires min assist for mobility. She needs verbal cues for sternal precaution compliance. No PT goals met this session. Recommend IP Rehab at discharge. Subjective Pt is reclined in the chair, agrees to PT Pain: Deleon-Stevens Pain Ratin = Hurts a little bit Pain Location: chest/incision Medical Precautions: No active isolations Proper PPE donned/doffed in accordance with facility standards. Fall Risk: Suazo Fall Risk Score: 65 (High Risk) Precautions/Restrictions: Sternal Precautions: No lifting greater than 10 lbs. Ok for modified UE precautions using Keep Your Move in the Tube technique Overall Cognitive Status: WFL Overall Orientation Status: Oriented to Place and Oriented to Person Family/Caregiver Present: none -- arrived at end of session Objective Bed Mobility Supine to sit: Min Assist Sit to supine: Min Assist Rolling to left: Min Assist Transfers/Mobility Sit to stand: Min Assist Stand to sit: Contact Guard Ambulation Ambulation 1 Assistive device(s) used: Rollator Assist level: Min Assist Distance (ft): 35 ft x 2, 5 ft x 2 Balance During Session: Static stand at rollator with CGA to SBA Stairs Stairs 1 Assistive device(s) used: None Assist level: Min Assist # of steps: 4 Rails: left Additional factors: non-reciprocal going up, non-reciprocal going down Exercises Exercises Upper Extremity: P&C exercises 1-9 x 10 reps each Plan Continue acute PT per plan of care. Safety/Education Safety Safety Devices in place: All fall risk precautions in place, call light within reach, left in chair, and no alarms engaged upon entry Restraints: No Education Education Given To: patient Education Provided: PT Role, PT Goals, Gait Training, Plan of Care, Home Exercise Program, Precautions, Transfer Training, and Discharge Recommendations Education Method: Verbal Barriers to Learning: None Education Outcome: Verbalized Understanding Outcome Measures AM-PAC AM-PAC Inpatient Mobility Raw Score : 18 AM-PAC Inpatient Mobility Raw Score (No Stairs) : 15 JH-HLM -M Score: Walked 25 ft or more (i.e. walked outside of room) Goals Patient Stated Goal: to go home Encounter Problems Encounter Problems (Active) Cardiac Patient will perform bed mobility with supervision in order to improve independence and prepare for out of bed mobility. (Progressing) Start: 01/13/25 Expected End: 02/10/25 Patient will complete sit to stand transfer with supervision in order to improve safety and prepare for out of bed mobility. (Progressing) Start: 01/13/25 Expected End: 02/10/25 Patient will ambulate 350 feet or ambulate 5 minutes with supervision with RPE of 14 or lower. (Progressing) Start: 01/13/25 Expected End: 02/10/25 Patient will ascend and descend 3 stairs with supervision and rail for balance only. (Progressing) Start: 01/13/25 Expected End: 02/10/25 Patient will be independent with P&C exercises. (Progressing) Start: 01/13/25 Expected End: 02/10/25 Patient will be independent with managing secretions and home walking program. (Progressing) Start: 01/13/25 Expected End: 02/10/25 Therapy Time Individual Co-treatment Time In 0920 Time Out 1002 Minutes 42 Timed Code Treatment Minutes: (GT, FA, TP) April Hills PTA Cosigned by Samuel Paez PT at 01/26/2025 10:37 AM EDT Images from the original note were not included. Cardiothoracic Surgery/[facility] Progress Note PATIENT NAME: Ritika Santana DATE: 01/26/25 HPI: 79-year-old female with past medical history of macular degeneration, GERD, paroxysmal A-fib, hypertension, presented to the ED at [facility] with complaints of worsening shortness of breath. Per patient she has always had shortness of breath but it has started to get worse recently. She also noted a dull ache radiating feeling sporadically at times that started to happen more frequently. She said these episodes initially started off lasting only a couple minutes but one of the last ones happened about 30 minutes. Cardiac enzymes were elevated in the ED and cardiology was consulted. Of note she does follow with cardiology as an outpatient for her proximal A-fib and she had called prior to her ED visit on 01/07. Patient mated with NSTEMI and cath was scheduled. Cardiac cath was completed 01/08/2025 which showed multivessel CAD involving left main She was transferred to [facility] for surgical evaluation. Surgery was discussed and she consented. She was taken to the operating room on 01/12/[address] Coreas Surgery/Procedure: 01/12/25: s/p CABGx4 (BLANCO to LAD, svg to PDA, svg to OM1, svg to diag) with Dr. Coreas Interval History: 01/26/25, POD# 14: VSS no acute issues noted overnight. Slight midsternal pain noted. She is contributing it to her doing more than she was. No other needs at this time. SNF planning Review of Systems Constitutional: Positive for fatigue. Negative for diaphoresis and fever. Respiratory: Negative for cough, shortness of breath and wheezing. Cardiovascular: Negative for chest pain, palpitations and leg swelling. Gastrointestinal: Negative for abdominal distention, constipation, diarrhea and nausea. Skin: Negative for color change, pallor and rash. Objective: Last BM Date: 01/25/25 Vitals: BP: 100/59, MAP (mmHg): 73, BP Method: Automatic Heart Rate: 63 Resp: 18 Temp: 36.6 C (97.8 F), Temp Source: Temporal BMI (Calculated): 25.69 BMP: Recent Labs 01/24/254 01/25/25 0547 01/26/25 0530 NA 140 142 -- K 3.2* 3.2* -- CL 110* 112* -- CO2 22* 20* -- BUN 19 18 -- CREATININE 0.78 0.76 -- CALCIUM 8.5* 8.6* -- MG 1.7 1.7 1.6 PHOS 3.9 4.0 4.0 CBC: Recent Labs 01/24/2545301/25/25 0547 01/26/25 0530 WBC 8.9 7.1 6.1 HGB 8.6* 7.9* 8.8* HCT 27.5* 25.5* 28.1* PLT 310 317 311 MCV 93.9 95.1 94.3 RDW 16.7* 16.5* 16.7* Physical Exam Cardiovascular: Rate and Rhythm: Normal rate and regular rhythm. Heart sounds: Normal heart sounds. No murmur heard. No friction rub. Pulmonary: Effort: Pulmonary effort is normal. Skin: General: Skin is warm and dry. Capillary Refill: Capillary refill takes less than 2 seconds. Findings: Bruising and ecchymosis present. Comments: Surgical Incisions: well approximate; clean dry with no drainage noted. Surrounding skin no redness, warmth, or signs of infection noted. Neurological: Mental Status: She is alert. Psychiatric: Behavior: Behavior is cooperative. Assessment: MVCAD s/p CABGx 4 HTN GERD Afib Macular degeneration Post operative Pulm Management: Normal Post-operative Course Acute blood loss anemia/consumptive coagulopathy Plan: Patient Status: Tele Medications: BB Plavix -plavix for NSTEMI Lasix 40mg daily Eliquis - afib Duonebs TID Remeron and melatonin at HS Continue home latanoprost GI prophy: PO protonix DVT prophy: Lovenox SubQ Bowel: senna/miralax Interventions: Pulmonary hygiene: IS and Acapella TEDs, SCDs Restraints: []Yes [x] No Consults: Endocrinology signed off Psych followed Therapies: PT: IPR OT: IPR Disposition: TBD - SNF if auth/bed obtained; will discuss with TCC Tele Status A total of 15 minutes were spent between the zhjy-ju-[id number] encounter, physical exam, reviewing the medical history, coordinating the patient's care, counseling/educating the patient, ordering medications/test/procedures, interpreting results and documenting clinical information in the patients electronic health record on the day of the encounter. The patient was seen and examined Patient discussed and plan of day developed from multidisciplinary rounds between Cardiothoracic Surgery (Cardiothoracic Surgeon, CONSTANCE) and Critical Care Attending Cardiac Core Medications: ASA, Statin, and BB EF: 55% 01/11/25 Blood Conservation: Transfused postoperatively Court Abstractor: Dr. Ruth ([place]) Cosigned by Lacho Coreas MD at 01/26/2025 12:23 PM EDT Associated attestation - Lacho Coreas MD - 01/26/2025 12:23 PM EDT Attending Note I personally saw and evaluated the patient. I reviewed and agree with the CONSTANCE s documentation. I provided a substantive portion of the care of this patient. I personally performed the medical decision making for this encounter as follows: Patient seen and examined on 01/26/25. As below, doing well and ready for discharge. Planning for SNF today pending auth. STAFF PHYSICIAN: Lacho Coreas MD DATE OF SERVICE: January 26, 2025 TIME OF SERVICE: 12:22 PM Images from the original note were not included. Cardiothoracic Surgery/[facility] Progress Note PATIENT NAME: Ritika Santana DATE: 01/25/25 HPI: 79-year-old female with past medical history of macular degeneration, GERD, paroxysmal A-fib, hypertension, presented to the ED at [facility] with complaints of worsening shortness of breath. Per patient she has always had shortness of breath but it has started to get worse recently. She also noted a dull ache radiating feeling sporadically at times that started to happen more frequently. She said these episodes initially started off lasting only a couple minutes but one of the last ones happened about 30 minutes. Cardiac enzymes were elevated in the ED and cardiology was consulted. Of note she does follow with cardiology as an outpatient for her proximal A-fib and she had called prior to her ED visit on 01/07. Patient mated with NSTEMI and cath was scheduled. Cardiac cath was completed 01/08/2025 which showed multivessel CAD involving left main She was transferred to [facility] for surgical evaluation. Surgery was discussed and she consented. She was taken to the operating room on 01/12/[address] Coreas Surgery/Procedure: 01/12/25: s/p CABGx4 (BLANCO to LAD, svg to PDA, svg to OM1, svg to diag) with Dr. Coreas Interval History: 01/25/25, POD# 13: VSS, afebrile, NSR on tele. On RA. Resting in chair, pain controlled. Reports feeling anxious, upon further questioning she is having SOB when walking. Discussed/worked on IS, coughing/deep breathing. Review of Systems Constitutional: Positive for activity change. Negative for appetite change, diaphoresis, fatigue and fever. Respiratory: Positive for cough. Negative for shortness of breath and wheezing. Cardiovascular: Negative for chest pain, palpitations and leg swelling. Gastrointestinal: Negative for abdominal distention, constipation and diarrhea. Skin: Negative for color change, pallor and rash. Objective: Last BM Date: 01/25/25 Vitals: BP: 117/61, MAP (mmHg): 78, BP Method: Automatic Heart Rate: 75 Resp: 21 Temp: 36.3 C (97.4 F), Temp Source: Temporal BMI (Calculated): 25.69 BMP: Recent Labs 01/23/25 0117 01/24/25 0454 01/25/25 0547 NA 141 140 142 K 3.5 3.2* 3.2* CL 109* 110* 112* CO2 22* 22* 20* BUN 17 19 18 CREATININE 0.85 0.78 0.76 CALCIUM 8.6* 8.5* 8.6* MG 1.7 1.7 -- PHOS 3.3 3.9 4.0 CBC: Recent Labs 01/23/25 0116 01/24/25 0454 01/25/25 0547 WBC 10.4 8.9 7.1 HGB 8.5* 8.6* 7.9* HCT 26.4* 27.5* 25.5* PLT 312 310 317 MCV 93.0 93.9 95.1 RDW 17.0* 16.7* 16.5* INR: No results for input(s): INR in the last 72 hours. Physical Exam Cardiovascular: Rate and Rhythm: Normal rate and regular rhythm. Heart sounds: Normal heart sounds. No murmur heard. No friction rub. Pulmonary: Effort: Pulmonary effort is normal. Breath sounds: Decreased breath sounds (bilateral bases) present. No wheezing or rhonchi. Abdominal: General: Bowel sounds are normal. Palpations: Abdomen is soft. Tenderness: There is no abdominal tenderness. Skin: General: Skin is warm and dry. Capillary Refill: Capillary refill takes less than 2 seconds. Findings: Bruising and ecchymosis present. Comments: Surgical Incisions: well approximate; clean dry with no drainage noted. Surrounding skin no redness, warmth, or signs of infection noted. Neurological: Mental Status: She is alert. Psychiatric: Behavior: Behavior is cooperative. Assessment: MVCAD s/p CABGx 4 HTN GERD Afib Macular degeneration Post operative Pulm Management: Normal Post-operative Course Acute blood loss anemia/consumptive coagulopathy Plan: Patient status: tele Medications: Plavix for NSTEMI, Statin BB- Metoprolol 25mg BID Lasix 40mg PO daily Eliquis for Afib Remeron & Melatonin at HS Add Duonebs TID Bowel regimen: Senna/miralax GI prophy: PO protonix DVT prophy:TEDs, SCDs, and Patient on OAC/NOAC Interventions: Encourage ambulation Pulmonary hygiene: IS and Acapella Consults: Endocrine signed off Psychiatry consulted- added Vistaril for anxiety PT/OT: PT: IPR TCC/Discharge Planning SNF pending bed availability Central Line: []Yes [x] No Arterial Line: []Yes [x] No Swift: []Yes [x] No Restraints: []Yes [x] No Patient discussed and plan of day developed from multidisciplinary rounds between Cardiothoracic Surgery (Cardiothoracic Surgeon, CON[facility]ANCE) and Critical Care Attending Tele Status A total of 23 minutes were spent between the [id number] encounter, physical exam, reviewing the medical history, coordinating the patient's care, counseling/educating the patient, ordering medications/test/procedures, interpreting results and documenting clinical information in the patients electronic health record on the day of the encounter. The patient was seen and examined Cardiac Core Medications: Plavix, Statin, and BB EF: 55% 01/11/25 Blood Conservation: transfused postop Court Abstractor: Dr. Ruth ([place]) Cosigned by Sharad Holman DO at 01/25/2025 3:04 PM EDT Images from the original note were not included. Cardiothoracic Surgery/[facility] Progress Note PATIENT NAME: Ritika Santana DATE: 01/24/25 HPI: 79-year-old female with past medical history of macular degeneration, GERD, paroxysmal A-fib, hypertension, presented to the ED at [facility] with complaints of worsening shortness of breath. Per patient she has always had shortness of breath but it has started to get worse recently. She also noted a dull ache radiating feeling sporadically at times that started to happen more frequently. She said these episodes initially started off lasting only a couple minutes but one of the last ones happened about 30 minutes. Cardiac enzymes were elevated in the ED and cardiology was consulted. Of note she does follow with cardiology as an outpatient for her proximal A-fib and she had called prior to her ED visit on 01/07. Patient mated with NSTEMI and cath was scheduled. Cardiac cath was completed 01/08/2025 which showed multivessel CAD involving left main She was transferred to [facility] for surgical evaluation. Surgery was discussed and she consented. She was taken to the operating room on 01/12/[address] Coreas Surgery/Procedure: 01/12/25: s/p CABGx4 (BLANCO to LAD, svg to PDA, svg to OM1, svg to diag) with Dr. Coreas Interval History: 01/24/25, POD# 12: VSS, afebrile, NSR on tele. On RA. Resting in chair, no acute concerns today. Discussed discharge plan, pending auth to SNF. Review of Systems Constitutional: Positive for activity change. Negative for appetite change, diaphoresis, fatigue and fever. Respiratory: Positive for cough. Negative for shortness of breath and wheezing. Cardiovascular: Negative for chest pain, palpitations and leg swelling. Gastrointestinal: Negative for abdominal distention, constipation and diarrhea. Skin: Negative for color change, pallor and rash. Objective: Last BM Date: 01/23/25 Vitals: BP: (!) 103/41, MAP (mmHg): 74, BP Method: Automatic Heart Rate: 64 Resp: 20 Temp: 36.8 C (98.3 F), Temp Source: Oral BMI (Calculated): 26.06 BMP: Recent Labs 01/22/25 0128 01/22/25 1230 01/22/25 1619 01/23/25 0117 01/24/25 0454 NA 141 -- -- 141 140 K 3.2* < > 3.8 3.5 3.2* CL 112* -- -- 109* 110* CO2 20* -- -- 22* 22* BUN 18 -- -- 17 19 CREATININE 0.70 -- -- 0.85 0.78 CALCIUM 8.5* -- -- 8.6* 8.5* MG 1.8 -- -- 1.7 1.7 PHOS 3.4 -- -- 3.3 3.9 < > = values in this interval not displayed. CBC: Recent Labs 01/22/25 0128 01/23/25 0116 01/24/25 0454 WBC 9.7 10.4 8.9 HGB 8.9* 8.5* 8.6* HCT 28.0* 26.4* 27.5* PLT 308 312 310 MCV 93.6 93.0 93.9 RDW 16.8* 17.0* 16.7* INR: No results for input(s): INR in the last 72 hours. Physical Exam Cardiovascular: Rate and Rhythm: Normal rate and regular rhythm. Heart sounds: Normal heart sounds. No murmur heard. No friction rub. Pulmonary: Effort: Pulmonary effort is normal. Breath sounds: No decreased breath sounds, wheezing or rhonchi. Abdominal: General: Bowel sounds are normal. Palpations: Abdomen is soft. Tenderness: There is no abdominal tenderness. Skin: General: Skin is warm and dry. Capillary Refill: Capillary refill takes less than 2 seconds. Findings: Bruising and ecchymosis present. Comments: Surgical Incisions: well approximate; clean dry with no drainage noted. Surrounding skin no redness, warmth, or signs of infection noted. Neurological: Mental Status: She is alert. Psychiatric: Behavior: Behavior is cooperative. Assessment: MVCAD s/p CABGx 4 HTN GERD Afib Macular degeneration Post operative Pulm Management: Normal Post-operative Course Acute blood loss anemia/consumptive coagulopathy Plan: Patient status: tele Medications: Plavix for NSTEMI Start atorvastatin- LFTs normalized BB- Metoprolol 25mg BID Lasix 40mg PO daily Eliquis for Afib Remeron & Melatonin at HS Bowel regimen: Senna/miralax GI prophy: PO protonix DVT prophy:TEDs, SCDs, and Patient on OAC/NOAC Interventions: Encourage ambulation Pulmonary hygiene: IS and Acapella Consults: Endocrine signed off Psychiatry consulted- added Vistaril for anxiety PT/OT: PT: IPR TCC/Discharge Planning SNF pending bed availability Central Line: []Yes [x] No Arterial Line: []Yes [x] No Swift: []Yes [x] No Restraints: []Yes [x] No Patient discussed and plan of day developed from multidisciplinary rounds between Cardiothoracic Surgery (Cardiothoracic Surgeon, CONSTANCE) and Critical Care Attending Tele Status A total of 27 minutes were spent between the [id number] encounter, physical exam, reviewing the medical history, coordinating the patient's care, counseling/educating the patient, ordering medications/test/procedures, interpreting results and documenting clinical information in the patients electronic health record on the day of the encounter. The patient was seen and examined Cardiac Core Medications: Plavix, Statin, and BB EF: 55% 01/11/25 Blood Conservation: transfused postop Court Abstractor: Dr. Ruth ([place]) Cosigned by Sharad Holman DO at 01/24/2025 3:01 PM EDT Nutrition Assessment Type and Reason for Visit: Reassess Nutrition Recommendations/Plan: Per MNT, will increase diet to APRIL (3-4gm) to promote PO intake. Per MNT, initiate ONS [employer] [place] 1.0 once daily. Continue Ensure Clear BID. Please document % meal/ONS intakes under I/O flowsheet. Monitor nutrition status, intakes, wt trends, labs, and fluid balance. RD will continue to follow. Malnutrition Assessment: Malnutrition Status: At risk for malnutrition (Comment) Context: Acute Illness Findings of the 6 clinical characteristics of malnutrition: Energy Intake: 75% or less of estimated energy requirements for 7 or more days Weight Loss: (~2% wt loss since adm (11 days)) Body Fat Loss: No significant body fat loss (appropriate for age) Muscle Mass Loss: No significant muscle mass loss Fluid Accumulation: Mild Extremities Paint Spray Inspector Strength: Not Performed Nutrition Assessment: Per chart, pt with PMH of macular degeneration, GERD, paroxysmal A-fib, hypertension, presented to the ED at [facility] with complaints of worsening shortness of breath. Cardiac enzymes were elevated in the ED and cardiology was consulted. Of note she does follow with cardiology as an outpatient for her proximal A-fib and she had called prior to her ED visit on 01/07. Patient with NSTEMI and cath was scheduled. Cardiac cath was completed 01/08 which showed multivessel CAD involving left main. She was transferred to [facility] on 01/09 for surgical evaluation. Surgery was discussed and she consented. She was taken to the operating room on 01/12/25 for CABGx4 (BLANCO to LAD, svg to PDA, svg to OM1, svg to diag). Discharge planning to SNF in progress. Pt and visitor present at time of RD assessment. State pt's appetite hasn't been great, consuming < 50% of meals. Endorses some nausea after some medications. Is enjoying the ONS, attempting to keep up w/ BID. Pt states hesitation w/ Ensure is dairy tolerance, however agreeable to trialing hdl therapeutics. RD encouraged small amounts throughout the day and reviewed nutrient dense foods to promote PO intake and meet pt's increased nutrition needs; pt understanding and appreciative. Estimated Daily Nutrient Needs: Energy Requirements Based On: Kcal/kg Weight Used for Energy Requirements: [place] Weight for Energy Calculation (kg): 52 kg Total Energy Requirements (kcals/day): 6612-0708 kcal/day (25-30) Weight Used for Protein Requirements: [place] Weight in Kg Used for Protein Requirements: 52 kg Estimated Total Protein (g/day): 62-73 g/day (1.2-1.4) Estimated Daily Total Fluid (ml/day): Per MD Nutrition Related Findings: +BS. Nonpitting edema BLE. Geovany 20 Wound Type: Surgical Incision BMP: Recent Labs 01/21/25 0538 01/22/25 0128 01/22/25 1230 01/22/25 1619 01/23/25 011 NA 143 141 -- -- 141 K 3.6 3.2* 3.3* 3.8 3.5 CL 112* 112* -- -- 109* CO2 22* 20* -- -- 22* BUN 21 18 -- -- 17 CREATININE 0.79 0.70 -- -- 0.85 GLUCOSE 96 106 -- -- 104 CALCIUM 8.5* 8.5* -- -- 8.6* MG 1.8 1.8 -- -- 1.7 PHOS 3.3 3.4 -- -- 3.3 HEPATIC: Recent Labs 01/21/25 0538 01/22/25 0128 01/23/25 0117 AST 31 31 34* ALT 41* 38* 35* BILITOT 0.7 0.8 0.8 ALKPHOS 84 83 76 Lab Results Component Value Date HGBA1C 5.8 (H) 01/12/2025 Current Nutrition Therapies: Adult diet Regular; Low Sodium (2 gm) Current Oral Intake Average Meal Intake: 26-50% Average Supplements Intake: 51-75%, 76-100% Anthropometric Measures: Height: 160 cm (5' 3) Current Body Weight: 66.7 kg (147 lb) (01/23) Weight Source: Standing Scale Admission Body Weight: 68.3 kg (150 lb 9.2 oz) (standing scale 01/09) Usual Body Weight: (153# on 10/23/24) [place] Body Weight (lbs) (Calculated): 115 lbs [place] Body Weight (Kg) (Calculated): 52 kg % [place] Body Weight (Calculated): 141.7 % BMI (kg/m2) (Calculated): 26 Weight Adjustment For: No Adjustment BMI Categories: Overweight (BMI 25.0-29.9) Nutrition Diagnosis: Predicted inadequate energy intake related to altered GI function as evidenced by nausea, vomiting Nutrition Interventions: Nutrition Education/Counseling: No recommendation at this time Coordination of Nutrition Care: Continue to monitor while inpatient Goals: Previous Goal Met: Progressing toward Goal(s) Goals: Meet at least 75% of estimated needs, by next RD assessment Nutrition Monitoring and Evaluation: Behavioral-Environmental Outcomes: None Identified Food/Nutrient Intake Outcomes: Food and Nutrient Intake, Supplement Intake Physical Signs/Symptoms Outcomes: Biochemical Data, GI Status, Fluid Status or Edema, Nutrition Focused Physical Findings, Skin, Weight Discharge Planning: Too soon to determine [place]en [place] RD, LD Contact: [phone] Images from the original note were not included. PHYSICAL THERAPY [facility] Treatment Note Name/MRN: Ritika Santana ([id number]) Date of : 1945 Age: 79 y.o. Room/Bed: T1-103/T1-103 A Discharge Recommendation: IP Rehab Other: TBD Assessment Pt requires min assist for transfers and ambulation. No PT goals met this session. She is compliant with sternal precautions. Recommend IP Rehab at discharge. Subjective Pt is sitting up in the chair, agrees to PT. Pain: Deleon-Stevens Pain Ratin = Hurts little more Pain Location: chest/incision Medical Precautions: No active isolations Proper PPE donned/doffed in accordance with facility standards. Fall Risk: [place] Fall Risk Score: 40 (Medium Risk) Precautions/Restrictions: Sternal Precautions: No lifting greater than 10 lbs. Ok for modified UE precautions using Keep Your Move in the Tube technique Overall Cognitive Status: WFL Overall Orientation Status: Oriented to Place and Oriented to Person Family/Caregiver Present: none- arrived at end of session Objective Transfers/Mobility Sit to stand: Min Assist Stand to sit: Contact Guard Toilet: Min Assist Transfer from chair x 3, from toilet x 1, from rollator x 1 Ambulation Ambulation 1 Assistive device(s) used: Rollator Assist level: Min Assist Distance (ft): 10 ft x 2 Ambulation 2 Assistive device(s) used: Rollator Assist level: Min Assist Distance (ft): 40 ft x 2 Quality of gait: frequent standing and one seated rest break Balance During Session: Static stand at rollator with SBA Exercises Exercises Upper Extremity: P&C exercises 1-9 x 10 reps each Comments: I.S. 500 mL Plan Continue acute PT per plan of care. Safety/Education Safety Safety Devices in place: All fall risk precautions in place, call light within reach, left in chair, nurse notified, and no alarms engaged upon entry Restraints: No Education Education Given To: patient Education Provided: PT Role, PT Goals, Gait Training, Plan of Care, Precautions, Transfer Training, and Discharge Recommendations Education Method: Verbal Barriers to Learning: None Education Outcome: Verbalized Understanding and Continued Education Needed Outcome Measures AM-PAC AM-PAC Inpatient Mobility Raw Score (No Stairs) : 14 JH-HLM -HLM Score: Walked 25 ft or more (i.e. walked outside of room) Goals Patient Stated Goal: To get better Encounter Problems Encounter Problems (Active) Cardiac Patient will perform bed mobility with supervision in order to improve independence and prepare for out of bed mobility. (Not Addressed) Start: 01/13/25 Expected End: 02/10/25 Patient will complete sit to stand transfer with supervision in order to improve safety and prepare for out of bed mobility. (Progressing) Start: 01/13/25 Expected End: 02/10/25 Patient will ambulate 350 feet or ambulate 5 minutes with supervision with RPE of 14 or lower. (Progressing) Start: 01/13/25 Expected End: 02/10/25 Patient will ascend and descend 3 stairs with supervision and rail for balance only. (Not Addressed) Start: 01/13/25 Expected End: 02/10/25 Patient will be independent with P&C exercises. (Progressing) Start: 01/13/25 Expected End: 02/10/25 Patient will be independent with managing secretions and home walking program. (Progressing) Start: 01/13/25 Expected End: 02/10/25 Therapy Time Individual Co-treatment Time In 924 Time Out 1004 Minutes 39 Timed Code Treatment Minutes: (GT, FA, TP) April Hills, INSPECTION CLERK Cosigned by Samantha Arce, PT at 01/23/2025 3:48 PM EDT Images from the original note were not included. Cardiothoracic Surgery/[facility] Progress Note PATIENT NAME: Ritika Santana DATE: 01/23/25 HPI: 79-year-old female with past medical history of macular degeneration, GERD, paroxysmal A-fib, hypertension, presented to the ED at [facility] with complaints of worsening shortness of breath. Per patient she has always had shortness of breath but it has started to get worse recently. She also noted a dull ache radiating feeling sporadically at times that started to happen more frequently. She said these episodes initially started off lasting only a couple minutes but one of the last ones happened about 30 minutes. Cardiac enzymes were elevated in the ED and cardiology was consulted. Of note she does follow with cardiology as an outpatient for her proximal A-fib and she had called prior to her ED visit on 01/07. Patient mated with NSTEMI and cath was scheduled. Cardiac cath was completed 01/08/2025 which showed multivessel CAD involving left main She was transferred to [facility] for surgical evaluation. Surgery was discussed and she consented. She was taken to the operating room on 01/12/[address] Coreas Surgery/Procedure: 01/12/25: s/p CABGx4 (BLANCO to LAD, svg to PDA, svg to OM1, svg to diag) with Dr. Coreas Interval History: 01/23/25, POD# 11: VSS up to chair. No acute issues noted overnight. Auth pending for SNF Review of Systems Constitutional: Positive for fatigue. Negative for diaphoresis and fever. Respiratory: Negative for cough, shortness of breath and wheezing. Cardiovascular: Negative for chest pain, palpitations and leg swelling. Gastrointestinal: Negative for abdominal distention, constipation, diarrhea and nausea. Skin: Negative for color change, pallor and rash. Objective: Last BM Date: 01/20/25 Vitals: BP: (!) 113/49, MAP (mmHg): 69, BP Method: Automatic Heart Rate: 76 Resp: 23 Temp: 37.6 C (99.7 F), Temp Source: Temporal BMI (Calculated): 26.06 BMP: Recent Labs 01/21/25 0538 01/22/25 0128 01/22/25 1230 01/22/25 1619 01/23/25 0117 NA 143 141 -- -- 141 K 3.6 3.2* 3.3* 3.8 3.5 CL 112* 112* -- -- 109* CO2 22* 20* -- -- 22* BUN 21 18 -- -- 17 CREATININE 0.79 0.70 -- -- 0.85 CALCIUM 8.5* 8.5* -- -- 8.6* MG 1.8 1.8 -- -- 1.7 PHOS 3.3 3.4 -- -- 3.3 CBC: Recent Labs 01/21/25 0538 01/22/25 0128 01/23/25 0116 WBC 7.2 9.7 10.4 HGB 8.3* 8.9* 8.5* HCT 26.2* 28.0* 26.4* PLT 267 308 312 MCV 93.9 93.6 93.0 RDW 16.3* 16.8* 17.0* Physical Exam Cardiovascular: Rate and Rhythm: Normal rate and regular rhythm. Heart sounds: Normal heart sounds. No murmur heard. No friction rub. Pulmonary: Effort: Pulmonary effort is normal. Skin: General: Skin is warm and dry. Capillary Refill: Capillary refill takes less than 2 seconds. Findings: Bruising and ecchymosis present. Comments: Surgical Incisions: well approximate; clean dry with no drainage noted. Surrounding skin no redness, warmth, or signs of infection noted. Neurological: Mental Status: She is alert. Psychiatric: Behavior: Behavior is cooperative. Assessment: MVCAD s/p CABGx 4 HTN GERD Afib Macular degeneration Post operative Pulm Management: Normal Post-operative Course Acute blood loss anemia/consumptive coagulopathy Plan: Patient Status: Tele Medications: ASA BB Plavix -plavix for NSTEMI Lasix 40mg daily Eliquis - afib Remeron at HS Continue home latanoprost GI prophy: PO protonix DVT prophy: Lovenox SubQ Bowel: senna/miralax Interventions: Pulmonary hygiene: IS and Acapella Mercedes, SCDs Restraints: []Yes [x] No Consults: Endocrinology signed off Therapies: PT: IPR OT: IPR Disposition: TBD - SNF referral sent - pending auth Tele Status A total of 18 minutes were spent between the moiy-ye-kerr encounter, physical exam, reviewing the medical history, coordinating the patient's care, counseling/educating the patient, ordering medications/test/procedures, interpreting results and documenting clinical information in the patients electronic health record on the day of the encounter. The patient was seen and examined Patient discussed and plan of day developed from multidisciplinary rounds between Cardiothoracic Surgery (Cardiothoracic Surgeon, CONSTANCE) and Critical Care Attending Cardiac Core Medications: ASA, Statin, and BB EF: 55% 01/11/25 Blood Conservation: Transfused postoperatively Court Abstractor: Dr. Ruth ([place]) Cosigned by Sharad Holman DO at 01/23/2025 5:52 PM EDT Images from the original note were not included. PHYSICAL THERAPY [facility] Treatment Note Name/MRN: Ritika Santana ([id number]) Date of : 1945 Age: 79 y.o. Room/Bed: T1-103/T1-103 A Discharge Recommendation: IP Rehab Other: TBD Assessment Pt requires min assist for ambulation and min assist to CGA for transfers. Pt needs verbal cues for sternal precaution compliance. She needed 2 seated and 1 standing rest break during ambulation. Pt with c/o dizziness during ambulation. RN aware. No PT goals met this session. Recommend IP Rehab at discharge. Subjective Pt is reclined in the chair, agrees to PT. States that she is feeling better today. Pain: Pt denies any current pain. Medical Precautions: No active isolations Proper PPE donned/doffed in accordance with facility standards. Fall Risk: Suazo Fall Risk Score: 40 (Medium Risk) Precautions/Restrictions: Sternal Precautions: No lifting greater than 10 lbs. Ok for modified UE precautions using Keep Your Move in the Tube technique Overall Cognitive Status: WFL Overall Orientation Status: Oriented to Place and Oriented to Person Family/Caregiver Present: none Objective Transfers/Mobility Sit to stand: Min Assist Stand to sit: Contact Guard X 2 reps from chair X 2 reps from rollator Ambulation Ambulation 1 Assistive device(s) used: Rollator Assist level: Min Assist Distance (ft): 15 ft, 30 ft, 25 ft 15 ft Quality of gait: 2 seated and 1 standing rest breaks needed Balance During Session: Static stand at rollator with CGA to SBA Exercises Exercises Upper Extremity: P&C exercises 1-9 x 10 reps each Plan Continue acute PT per plan of care. Safety/Education Safety Safety Devices in place: All fall risk precautions in place, call light within reach, left in chair, nurse notified, and no alarms engaged upon entry Restraints: No Education Education Given To: patient Education Provided: PT Role, PT Goals, Gait Training, Plan of Care, Precautions, Transfer Training, and Discharge Recommendations Education Method: Verbal Barriers to Learning: None Education Outcome: Verbalized Understanding and Continued Education Needed Outcome Measures AM-PAC AM-PAC Inpatient Mobility Raw Score (No Stairs) : 14 JH-HLM JH-HLM Score: Walked 25 ft or more (i.e. walked outside of room) Goals Patient Stated Goal: to get better Encounter Problems Encounter Problems (Active) Cardiac Patient will perform bed mobility with supervision in order to improve independence and prepare for out of bed mobility. (Not Addressed) Start: 01/13/25 Expected End: 02/10/25 Patient will complete sit to stand transfer with supervision in order to improve safety and prepare for out of bed mobility. (Progressing) Start: 01/13/25 Expected End: 02/10/25 Patient will ambulate 350 feet or ambulate 5 minutes with supervision with RPE of 14 or lower. (Progressing) Start: 01/13/25 Expected End: 02/10/25 Patient will ascend and descend 3 stairs with supervision and rail for balance only. (Not Addressed) Start: 01/13/25 Expected End: 02/10/25 Patient will be independent with P&C exercises. (Progressing) Start: 01/13/25 Expected End: 02/10/25 Patient will be independent with managing secretions and home walking program. (Progressing) Start: 01/13/25 Expected End: 02/10/25 Therapy Time Individual Co-treatment Time In 0915 Time Out 0945 Minutes 30 Timed Code Treatment Minutes: (GT, TP) April Hills, INSPECTION CLERK Cosigned by Samantha Arce PT at 01/22/2025 4:18 PM EDT Images from the original note were not included. Cardiothoracic Surgery/CCM Progress Note PATIENT NAME: Ritika Santana DATE: 01/22/25 HPI: 79-year-old female with past medical history of macular degeneration, GERD, paroxysmal A-fib, hypertension, presented to the ED at [facility] with complaints of worsening shortness of breath. Per patient she has always had shortness of breath but it has started to get worse recently. She also noted a dull ache radiating feeling sporadically at times that started to happen more frequently. She said these episodes initially started off lasting only a couple minutes but one of the last ones happened about 30 minutes. Cardiac enzymes were elevated in the ED and Cardiology was consulted. Of note she does follow with cardiology as an outpatient for her proximal A-fib and she had called prior to her ED visit on 01/07. Patient admitted with NSTEMI and cath was scheduled. Cardiac cath was completed 01/08/2025 which showed multivessel CAD involving left main She was transferred to [facility] for surgical evaluation. Surgery was discussed and she consented. She was taken to the operating room on 01/12/[address] Coreas. Surgery/Procedure: 01/12/25: s/p CABGx4 (BLANCO to LAD, svg to PDA, svg to OM1, svg to diag) with Dr. Coreas Interval History: 01/22/25, POD# 10. Afebrile, NSR on tele, BP stable though more elevated today, on RA. Episode of anxiety yesterday, treated with PRN vistaril. Peer to peer offered for IPR admission. 1 call yesterday made, placed on hold. 2 calls this AM made prior to 8AM deadline, not open. Will move forward with SNF options. Objective: Last BM Date: 01/20/25 Vitals: BP: 149/56, MAP (mmHg): 82, BP Method: Automatic Heart Rate: 100 Resp: 22 Temp: 37 C (98.6 F), Temp Source: Temporal BMI (Calculated): 26.83 BMP: Recent Labs 01/20/25 0549 01/21/25 0538 01/22/25 0128 NA 142 143 141 K 3.4* 3.6 3.2* CL 111* 112* 112* CO2 24 22* 20* BUN 27* 21 18 CREATININE 0.85 0.79 0.70 CALCIUM 8.3* 8.5* 8.5* MG 1.8 1.8 1.8 PHOS 3.7 3.3 3.4 CBC: Recent Labs 01/20/25 0549 01/21/25 0538 01/22/25 0128 WBC 7.9 7.2 9.7 HGB 8.4* 8.3* 8.9* HCT 26.9* 26.2* 28.0* PLT 288 267 308 MCV 94.1 93.9 93.6 RDW 16.4* 16.3* 16.8* INR: No results for input(s): INR in the last 72 hours. Physical Exam Vitals reviewed. Constitutional: General: She is not in acute distress. Appearance: She is not ill-appearing or diaphoretic. Cardiovascular: Rate and Rhythm: Normal rate and regular rhythm. Pulses: Normal pulses. Heart sounds: No murmur heard. Pulmonary: Effort: Pulmonary effort is normal. Breath sounds: No wheezing, rhonchi or rales. Abdominal: General: There is no distension. Palpations: Abdomen is soft. Tenderness: There is no abdominal tenderness. Skin: General: Skin is warm and dry. Capillary Refill: Capillary refill takes less than 2 seconds. Findings: Bruising present. Comments: Surgical incisions well approximated, no redness, warmth or drainage noted. Neurological: General: No focal deficit present. Mental Status: She is alert and oriented to person, place, and time. Assessment: MVCAD s/p CABGx 4 Plavix HTN GERD Afib Macular degeneration Post operative Pulm Management: Normal Post-operative Course Acute blood loss anemia/consumptive coagulopathy Plan: Patient status: PCU Restart Eliquis d/t previous afib. Plavix for NSTEMI. Stop aspirin and lovenox. Continue BB, if BP remains high will consider increasing dose. Lasix 40mg PO daily. Ok to leave IV out. Replete electrolytes per PRN protocols. Melatonin and remeron at night. Bowel regimen. Out of bed for meals, progressive mobility. Daily labs. CXR tomorrow AM. GI prophy: PO protonix DVT prophy:TEDs, SCDs, and Patient on OAC/NOAC Pulmonary hygiene: IS and Acapella Consults: Endocrinology signed off. -No home going recs. PT/OT: IPR (01/19/25) TCC/Discharge Planning: Unable to successfully complete peer to peer. Will offer to move forward with SNF. Central Line: []Yes [x] No Arterial Line: []Yes [x] No Swift: []Yes [x] No Restraints: []Yes [x] No Patient discussed and plan of day developed from multidisciplinary rounds between Cardiothoracic Surgery (Cardiothoracic Surgeon, CONSTANCE) and Critical Care Attending A total of 15 minutes were spent between the [id number] encounter, physical exam, reviewing the medical history, coordinating the patient's care, counseling/educating the patient, ordering medications/test/procedures, interpreting results and documenting clinical information in the patients electronic health record on the day of the encounter. The patient was seen and examined. Cardiac Core Medications: Plavix, Statin, and BB EF: 55% 01/11/25 Blood Conservation: Transfused Court Abstractor: Dr. Ruth ([place]) Cosigned by Sharad Holman DO at 01/22/2025 4:23 PM EDT Images from the original note were not included. PHYSICAL THERAPY [facility] Treatment Note Name/MRN: Ritika Santana ([id number]) Date of : 1945 Age: 79 y.o. Room/Bed: T1-103/T1-103 A Discharge Recommendation: IP Rehab Other: TBD Assessment Pt requires min assist for transfers and ambulation with rollator. Increased SOB noted, requiring several standing and seated rest breaks. RN notified. SpO2 remained in mid 90s, but RR elevated and pt was SOB. Verbal cues given for proper deep breathing technique and RN was notified. No PT goals met this session. Recommend IP Rehab at discharge. Subjective Pt is reclined in the chair, agrees to PT. Pain: Deleon-Stevens Pain Ratin = Hurts little more Pain Location: chest/incision (sore) Medical Precautions: No active isolations Proper PPE donned/doffed in accordance with facility standards. Fall Risk: Suazo Fall Risk Score: 45 (High Risk) Precautions/Restrictions: Sternal Precautions: No lifting greater than 10 lbs. Ok for modified UE precautions using Keep Your Move in the Tube technique Overall Cognitive Status: WNL Overall Orientation Status: Oriented to Place and Disoriented to Person Family/Caregiver Present: none (spouse arrived at end of session) Objective Transfers/Mobility Sit to stand: Min Assist Stand to sit: Min Assist Toilet: Min Assist From chair x 2, from EOB x 1, from toilet x 1 Ambulation Ambulation 1 Assistive device(s) used: Rollator Assist level: Min Assist Distance (ft): 25 ft Quality of gait: standing rest breaks needed Ambulation 2 Assistive device(s) used: Rollator Assist level: Min Assist Distance (ft): 30 ft x 2 Quality of gait: standing and seated rest break Balance During Session: Static stand at rollator with CGA Exercises Exercises Upper Extremity: P&C exercises 1-9 x 10 reps each Plan Continue acute PT per plan of care. Safety/Education Safety Safety Devices in place: All fall risk precautions in place, call light within reach, left in chair, patient at risk for falls, nurse notified, and no alarms engaged upon entry Restraints: No Education Education Given To: patient Education Provided: PT Role, PT Goals, Gait Training, Plan of Care, Home Exercise Program, Precautions, Transfer Training, and Discharge Recommendations Education Method: Verbal Barriers to Learning: None Education Outcome: Verbalized Understanding and Continued Education Needed Outcome Measures AM-PAC AM-PAC Inpatient Mobility Raw Score (No Stairs) : 14 JH-HLM -HLM Score: Walked 25 ft or more (i.e. walked outside of room) Goals Patient Stated Goal: To get better Encounter Problems Encounter Problems (Active) Cardiac Patient will perform bed mobility with supervision in order to improve independence and prepare for out of bed mobility. (Not Addressed) Start: 01/13/25 Expected End: 02/10/25 Patient will complete sit to stand transfer with supervision in order to improve safety and prepare for out of bed mobility. (Progressing) Start: 01/13/25 Expected End: 02/10/25 Patient will ambulate 350 feet or ambulate 5 minutes with supervision with RPE of 14 or lower. (Progressing) Start: 01/13/25 Expected End: 02/10/25 Patient will ascend and descend 3 stairs with supervision and rail for balance only. (Not Addressed) Start: 01/13/25 Expected End: 02/10/25 Patient will be independent with P&C exercises. (Progressing) Start: 01/13/25 Expected End: 02/10/25 Patient will be independent with managing secretions and home walking program. (Progressing) Start: 01/13/25 Expected End: 02/10/25 Therapy Time Individual Co-treatment Time In 09 Time Out 0950 Minutes 27 Timed Code Treatment Minutes: (GT, TP) April Hills PTA Cosigned by Samantha Arce PT at 01/21/2025 10:50 AM EDT Images from the original note were not included. Cardiothoracic Surgery/CCM Progress Note PATIENT NAME: Ritika Santana DATE: 01/21/25 HPI: 79-year-old female with past medical history of macular degeneration, GERD, paroxysmal A-fib, hypertension, presented to the ED at [facility] with complaints of worsening shortness of breath. Per patient she has always had shortness of breath but it has started to get worse recently. She also noted a dull ache radiating feeling sporadically at times that started to happen more frequently. She said these episodes initially started off lasting only a couple minutes but one of the last ones happened about 30 minutes. Cardiac enzymes were elevated in the ED and Cardiology was consulted. Of note she does follow with cardiology as an outpatient for her proximal A-fib and she had called prior to her ED visit on 01/07. Patient admitted with NSTEMI and cath was scheduled. Cardiac cath was completed 01/08/2025 which showed multivessel CAD involving left main She was transferred to [facility] for surgical evaluation. Surgery was discussed and she consented. She was taken to the operating room on 01/12/[address] Coreas. Surgery/Procedure: 01/12/25: s/p CABGx4 (BLANCO to LAD, svg to PDA, svg to OM1, svg to diag) with Dr. Coreas Interval History: 01/21/25, POD# 09: Afebrile, NSR on tele with occasional recordings in the 50's, on RA. No acute issues noted. Sitting up in chair this AM, pain tolerable, PO intake improving. Objective: Last BM Date: 01/19/25 Vitals: BP: (!) 97/45, MAP (mmHg): 62, BP Method: Automatic Heart Rate: 59 Resp: 25 Temp: 36.6 C (97.9 F), Temp Source: Temporal BMI (Calculated): 26.83 BMP: Recent Labs 01/19/25 0631 01/20/25 0549 01/21/25 0538 NA 143 142 143 K 3.4* 3.4* 3.6 CL 111* 111* 112* CO2 21* 24 22* BUN 34* 27* 21 CREATININE 0.95 0.85 0.79 CALCIUM 9.5 8.3* 8.5* MG 2.0 1.8 1.8 PHOS 3.8 3.7 3.3 CBC: Recent Labs 01/19/25 0631 01/20/25 0549 01/21/25 0538 WBC 9.6 7.9 7.2 HGB 9.4* 8.4* 8.3* HCT 30.0* 26.9* 26.2* PLT 264 288 267 MCV 93.8 94.1 93.9 RDW 16.3* 16.4* 16.3* INR: No results for input(s): INR in the last 72 hours. Physical Exam Vitals reviewed. Constitutional: General: She is not in acute distress. Appearance: She is not ill-appearing or diaphoretic. Cardiovascular: Rate and Rhythm: Normal rate and regular rhythm. Pulses: Normal pulses. Heart sounds: No murmur heard. Pulmonary: Effort: Pulmonary effort is normal. Breath sounds: No wheezing, rhonchi or rales. Abdominal: General: There is no distension. Palpations: Abdomen is soft. Tenderness: There is no abdominal tenderness. Skin: General: Skin is warm and dry. Capillary Refill: Capillary refill takes less than 2 seconds. Findings: Bruising present. Comments: Surgical incisions well approximated, no redness, warmth or drainage noted. Neurological: General: No focal deficit present. Mental Status: She is alert and oriented to person, place, and time. Assessment: MVCAD s/p CABGx 4 Plavix HTN GERD Afib Macular degeneration Post operative Pulm Management: Normal Post-operative Course Acute blood loss anemia/consumptive coagulopathy Plan: Patient status: PCU Start Plavix for NSTEMI. Check EKG this AM. Continue aspirin and BB. -Monitoring LFT's before starting statin. -Normalizing. Lasix 20mg IV daily while IP. Replete electrolytes per PRN protocols. Melatonin and remeron at night. Bowel regimen. Out of bed for meals, progressive mobility. Daily labs. CXR tomorrow AM. GI prophy: PO protonix DVT prophy:TEDs, SCDs, and Lovenox SubQ Pulmonary hygiene: IS and Acapella Consults: Endocrinology signed off. -No home going recs. PT/OT: IPR (01/19/25) TCC/Discharge Planning: [facility], now awaiting insurance auth. Central Line: []Yes [x] No Arterial Line: []Yes [x] No Swift: []Yes [x] No Restraints: []Yes [x] No Patient discussed and plan of day developed from multidisciplinary rounds between Cardiothoracic Surgery (Cardiothoracic Surgeon, CONSTANCE) and Critical Care Attending A total of 22 minutes were spent between the [id number] encounter, physical exam, reviewing the medical history, coordinating the patient's care, counseling/educating the patient, ordering medications/test/procedures, interpreting results and documenting clinical information in the patients electronic health record on the day of the encounter. The patient was seen and examined. Cardiac Core Medications: ASA, Statin, and BB EF: 55% 01/11/25 Blood Conservation: Transfused Court Abstractor: Dr. Ruth ([place]) Cosigned by Sharad Holman DO at 01/21/2025 9:54 AM EDT Images from the original note were not included. OCCUPATIONAL THERAPY [facility] Treatment Note Name/MRN: Ritika Santana ([id number]) Date of : 1945 Age: 79 y.o. Room/Bed: T1-103/T1-103 A Discharge Recommendation: IP Rehab Equipment Needed: (HIP KIT) Assessment Pt required MOD A for functional mobility and MIN A for transfers with use of nezzie with focus and compliance of sternal precautions. Pt required MOD A for LB Dressing with trial of AE. Pt is most limited by decreased functional endurance, decreased standing balance and decreased mobility hindering indep and safety with functional tasks. Pt would be a GOOD candidate for IPR and would be able to tolerate intensive level therapies. Recommending IPR upon discharge in order to achieve highest level of function. Subjective Pt reclined in chair upon entry. RN approved of therapy. Pt denied pain. Pt pleasant and agreeable to OT TX. A & O X 4. O2 levels and HR were closely monitored and remained WNL throughout TX session 95-98% on RA and HR 67-88 with physical activity. Pt stated I walked earlier today but, I got 3 more to go ! Pt required re education on sternal precautions Keep your move in the tube as she could only recall use of heart pillow with standing tasks. Pt requested to recline in chair at the EOS. Call light placed within reach and all needs met. Pain: Pt denies any current pain. Medical Precautions: No active isolations Proper PPE donned/doffed in accordance with facility standards. Fall Risk: Suazo Fall Risk Score: 60 (High Risk) Precautions/Restrictions: Sternal Precautions: No lifting greater than 10 lbs. Ok for modified UE precautions using Keep Your Move in the Tube technique Family/Caregiver Present: spouse Objective ADLs LE Dressing: Mod Assist LE Bathing: Mod Assist- Pt required MOD A to wash below knees- educated on benefits of LHS to increase indep and safety of task- Pt with good understanding. Adaptive Equipment: Doctor Naturopathic and sock aid 2/2 trials- Pt required MOD A for LB Dressing task with trial of it trainee to doff gripper socks with hand under hand assist for improved technique d/t difficulty getting ahold of sock and not foam heel protectors when trial without hand under hand assist. Pt required MIN A with trial of sock aid to afni gripper socks with verbal cues for improved technique when pulling up towards body for proper form. Bed Mobility Pt up in chair upon arrival Transfers/Mobility Sit to stand: Min Assist- Pt required MIN A for trunk elevation with use of heart pillow for compliance of sternal precautions and tactile cues for improved hip and knee ext 3/[address] Stand to sit: Contact Guard Sitting balance: Supervision Standing balance: Min Assist Functional mobility: Mod Assist- Pt required MOD A for functional mobility from chair <> glass door x 2 with use of nezzie and verbal cues for PLB technique and looking forward as Pt tends to look down at feet d/t decreased proprioception. Pt required tactile cues for improved safety when making small and large turns. Device(s) used: Nezzie Plan Continue acute OT per plan of care. Safety/Education Safety Safety Devices in place: All fall risk precautions in place, call light within reach, left in chair, chair alarm in place, gait belt, and nurse notified Restraints: No Education Education Given To: patient Education Provided: OT Role, Plan of Care, Precautions, ADL Adaptive Strategies, Transfer Training, Energy Conservation, Orientation, Discharge Recommendations, Benefits of Increasing Activity, and Breathing Techniques Education Method: Verbal, Demonstration, and Teach Back Barriers to Learning: None Education Outcome: Verbalized Understanding, Demonstrated Understanding, and Continued Education Needed AM-PAC AM-PAC Inpatient Daily Activity Raw Score: 15 ADL Inpatient [facility] G-Code Modifier: CK Goals Patient Stated Goal: to go to [place] for rehab Encounter Problems Encounter Problems (Active) Bathing Patient will utilize adaptive techniques to bathe body mod indep. (Not Addressed) Start: 01/14/25 Expected End: 02/11/25 Dressing Upper Extremities Patient will complete upper body dressing with SUP. (Not Addressed) Start: 01/14/25 Expected End: 02/11/25 Dressings Lower Extremities Patient will dress lower body SUP with AE prn. (Progressing) Start: 01/14/25 Expected End: 02/11/25 Instrumental Activities of Daily Living Patient will implement energy conservation techniques during ADLs with no cues. (Slowly Progressing) Start: 01/14/25 Expected End: 02/11/25 Safety Patient will adhere to sternal precautions during all functional mobility and ADLs in order to demonstrate improved understanding and promote healing post op. (Progressing) Start: 01/14/25 Expected End: 02/11/25 Toileting Patient will complete toileting tasks at standard toilet with supervision. (Not Addressed) Start: 01/14/25 Expected End: 02/11/25 Transfers Patient will complete functional transfer with least restrictive device with supervision in order to prepare for ambulation. (Progressing) Start: 01/14/25 Expected End: 02/11/25 Therapy Time Individual Co-treatment Time In 0134 Time Out 0201 Minutes 27 Timed Code Treatment Minutes: 27 Minutes (1-ADL; 1- FUNCT ACT) JULIET Diaz Cosigned by Ariadna Talbot, OTR/L at 01/20/2025 2:38 PM EDT Images from the original note were not included. PHYSICAL THERAPY [facility] Treatment Note Name/MRN: Ritika Santana ([id number]) Date of : 1945 Age: 79 y.o. Room/Bed: T1-103/T1 A Discharge Recommendation: IP Rehab Other: TBD Assessment Pt requires min to mod assist for ambulation. She demos decreased strength, balance, and endurance. No PT goals met this session. Recommend IP Rehab at discharge. Subjective Pt is sitting up in the chair, agrees to PT. Pain: Pt denies any current pain. Medical Precautions: No active isolations Proper PPE donned/doffed in accordance with facility standards. Fall Risk: Suazo Fall Risk Score: 60 (High Risk) Precautions/Restrictions: Sternal Precautions: No lifting greater than 10 lbs. Ok for modified UE precautions using Keep Your Move in the Tube technique Overall Cognitive Status: WFL Overall Orientation Status: Oriented to Place and Oriented to Person Family/Caregiver Present: spouse Objective Transfers/Mobility Sit to stand: Min Assist Stand to sit: Min Assist Ambulation Ambulation 1 Assistive device(s) used: Divine Assist level: Min Assist to mod assist for one LOB requiring assist to correct Distance (ft): 40 ft x 2 Exercises Exercises Upper Extremity: P&C exercises 1-9 x 10 reps each Plan Continue acute PT per plan of care. Safety/Education Safety Safety Devices in place: All fall risk precautions in place, call light within reach, left in chair, patient at risk for falls, and no alarms engaged upon entry Restraints: No Education Education Given To: patient Education Provided: PT Role, PT Goals, Gait Training, Plan of Care, Precautions, Transfer Training, and Discharge Recommendations Education Method: Verbal Barriers to Learning: None Education Outcome: Verbalized Understanding and Continued Education Needed Outcome Measures AM-PAC AM-PAC Inpatient Mobility Raw Score (No Stairs) : 14 JH-HLM JH-HLM Score: Walked 25 ft or more (i.e. walked outside of room) Goals Patient Stated Goal: To get better Encounter Problems Encounter Problems (Active) Cardiac Patient will perform bed mobility with supervision in order to improve independence and prepare for out of bed mobility. (Not Addressed) Start: 01/13/25 Expected End: 02/10/25 Patient will complete sit to stand transfer with supervision in order to improve safety and prepare for out of bed mobility. (Progressing) Start: 01/13/25 Expected End: 02/10/25 Patient will ambulate 350 feet or ambulate 5 minutes with supervision with RPE of 14 or lower. (Progressing) Start: 01/13/25 Expected End: 02/10/25 Patient will ascend and descend 3 stairs with supervision and rail for balance only. (Not Addressed) Start: 01/13/25 Expected End: 02/10/25 Patient will be independent with P&C exercises. (Progressing) Start: 01/13/25 Expected End: 02/10/25 Patient will be independent with managing secretions and home walking program. (Progressing) Start: 01/13/25 Expected End: 02/10/25 Therapy Time Individual Co-treatment Time In 1143 Time Out 1208 Minutes 25 Timed Code Treatment Minutes: (GT, TP) April Hills PTA Cosigned by Samantha Arce PT at 01/20/2025 3:38 PM EDT Images from the original note were not included. Cardiothoracic Surgery/CCM Progress Note PATIENT NAME: Ritika Santana DATE: 01/20/25 HPI: 79-year-old female with past medical history of macular degeneration, GERD, paroxysmal A-fib, hypertension, presented to the ED at [facility] with complaints of worsening shortness of breath. Per patient she has always had shortness of breath but it has started to get worse recently. She also noted a dull ache radiating feeling sporadically at times that started to happen more frequently. She said these episodes initially started off lasting only a couple minutes but one of the last ones happened about 30 minutes. Cardiac enzymes were elevated in the ED and Cardiology was consulted. Of note she does follow with cardiology as an outpatient for her proximal A-fib and she had called prior to her ED visit on 01/07. Patient admitted with NSTEMI and cath was scheduled. Cardiac cath was completed 01/08/2025 which showed multivessel CAD involving left main She was transferred to [facility] for surgical evaluation. Surgery was discussed and she consented. She was taken to the operating room on 01/12/[address] Coreas. Surgery/Procedure: 01/12/25: s/p CABGx4 (BLANCO to LAD, svg to PDA, svg to OM1, svg to diag) with Dr. Coreas Interval History: 01/20/25, POD# 08. Afebrile, NSR on tele, BP stable, on RA. Slept well overnight. No acute issues. Referral sent for [place] [facility]. Objective: Last BM Date: 01/19/25 Vitals: BP: 109/54, MAP (mmHg): 71, BP Method: Automatic Heart Rate: 60 Resp: 25 Temp: 36.8 C (98.2 F), Temp Source: Temporal BMI (Calculated): 26.83 BMP: Recent Labs 01/18/25 0549 01/18/25 0823 01/19/25 0631 01/20/25 0549 NA 141 -- 143 142 K 3.4* 3.4* 3.4* 3.4* CL 106 -- 111* 111* CO2 21* -- 21* 24 BUN 39* -- 34* 27* CREATININE 0.92 -- 0.95 0.85 CALCIUM 9.2 -- 9.5 8.3* MG 2.2 -- 2.0 1.8 PHOS 3.8 -- 3.8 3.7 CBC: Recent Labs 01/18/25 0549 01/19/25 0631 01/20/25 0549 WBC 7.7 9.6 7.9 HGB 9.2* 9.4* 8.4* HCT 27.9* 30.0* 26.9* PLT 192 264 288 MCV 91.5 93.8 94.1 RDW 15.9* 16.3* 16.4* INR: No results for input(s): INR in the last 72 hours. Physical Exam Vitals reviewed. Constitutional: General: She is not in acute distress. Appearance: She is not ill-appearing or diaphoretic. Cardiovascular: Rate and Rhythm: Normal rate and regular rhythm. Pulses: Normal pulses. Heart sounds: No murmur heard. Pulmonary: Effort: Pulmonary effort is normal. Breath sounds: No wheezing, rhonchi or rales. Abdominal: General: There is no distension. Palpations: Abdomen is soft. Tenderness: There is no abdominal tenderness. Skin: General: Skin is warm and dry. Capillary Refill: Capillary refill takes less than 2 seconds. Findings: Bruising present. Comments: Surgical incisions well approximated, no redness, warmth or drainage noted. Neurological: General: No focal deficit present. Mental Status: She is alert and oriented to person, place, and time. Assessment: MVCAD s/p CABGx 4 Plavix HTN GERD Afib Macular degeneration Post operative Pulm Management: Normal Post-operative Course Acute blood loss anemia/consumptive coagulopathy Plan: Patient status: PCU Start Plavix for NSTEMI. Continue aspirin and BB. -Monitoring LFT's before starting statin. -Normalizing. Lasix 20mg IV daily while IP. Replete electrolytes per PRN protocols. Melatonin and remeron at night. Bowel regimen. Out of bed for meals, progressive mobility. Daily labs. CXR tomorrow AM. GI prophy: PO protonix DVT prophy:TEDs, SCDs, and Lovenox SubQ Pulmonary hygiene: IS and Acapella Consults: Endocrinology signed off. -No home going recs. PT/OT: IPR (01/19/25) TCC/Discharge Planning: Would like to attempt IPR in [place]. Referral sent. Central Line: []Yes [x] No Arterial Line: []Yes [x] No Swift: []Yes [x] No Restraints: []Yes [x] No Patient discussed and plan of day developed from multidisciplinary rounds between Cardiothoracic Surgery (Cardiothoracic Surgeon, [facility]) and Critical Care Attending A total of 20 minutes were spent between the [id number] encounter, physical exam, reviewing the medical history, coordinating the patient's care, counseling/educating the patient, ordering medications/test/procedures, interpreting results and documenting clinical information in the patients electronic health record on the day of the encounter. The patient was seen and examined. Cardiac Core Medications: ASA, Statin, and BB EF: 55% 01/11/25 Blood Conservation: Transfused Court Abstractor: Dr. Ruth ([place]) Cosigned by Sharad Holman DO at 01/20/2025 1:01 PM EDT Nutrition Assessment Type and Reason for Visit: Reassess Nutrition Recommendations/Plan: Continue APRIL diet. Will discontinue carb limit to promote PO intake (no hx of DM, Endocrinology signed off) Continue ONS: Ensure Clear BID Pt received heart healthy diet handout with [facility] RD phone number. Provided brief overview of diet. Pt prefers to review information on her own, declines diet education RD will monitor overall nutrition status and will follow weekly Malnutrition Assessment: Malnutrition Status: At risk for malnutrition (Comment) Context: Acute Illness Findings of the 6 clinical characteristics of malnutrition: Energy Intake: Mild decrease in energy intake (Comment) (decreased PO intake, supplemented with ONS) Weight Loss: No significant weight loss Body Fat Loss: No significant body fat loss (appears consistent with normal aging) Muscle Mass Loss: No significant muscle mass loss (appears consistent with normal aging) Fluid Accumulation: No significant fluid accumulation Paint Spray Inspector Strength: Not Performed Nutrition Assessment: Per chart, pt with PMH of macular degeneration, GERD, paroxysmal A-fib, hypertension, presented to the ED at [facility] with complaints of worsening shortness of breath. Cardiac enzymes were elevated in the ED and cardiology was consulted. Of note she does follow with cardiology as an outpatient for her proximal A-fib and she had called prior to her ED visit on 01/07. Patient with NSTEMI and cath was scheduled. Cardiac cath was completed 01/08 which showed multivessel CAD involving left main. She was transferred to [facility] on 01/09 for surgical evaluation. Surgery was discussed and she consented. She was taken to the operating room on 01/12/25 for CABGx4 (BLANCO to LAD, svg to PDA, svg to OM1, svg to diag) with Dr. Coreas. POD #7. Pt reports improved appetite and PO intake, although reports she is not eating much, she is eating three meals daily, estimates ~50% of meals, variable PO intake is documented. She reports she is consuming Enure Clear. RD Provided heart healthy diet handout with [facility] RD Phone number. Briefly reviewed diet principles: low fat dairy, lean proteins, increasing vegetable and whole fruits as well as whole grains. Pt denies need for diet education, preferring to review information on her own. Estimated Daily Nutrient Needs: Energy Requirements Based On: Kcal/kg Weight Used for Energy Requirements: [place] Weight for Energy Calculation (kg): 52 kg Total Energy Requirements (kcals/day): 3892-0414 kcal/day (25-30) Weight Used for Protein Requirements: [place] Weight in Kg Used for Protein Requirements: 52 kg Estimated Total Protein (g/day): 62-73 g/day (1.2-1.4) Estimated Daily Total Fluid (ml/day): Per MD Nutrition Related Findings: Lives with: Spouse/significant other Teeth: Missing teeth Room Service Room Service: Selective Geovany Scale Score: 20. Wound Type: Surgical Incision Net IO Since Admission: 2,716.34 mL [01/19/25 1510] Edema: RUE Edema: None, LUE Edema: None, RLE Edema: None, LLE Edema: None Bowel Sounds (All Quadrants): Active Abdomen Inspection: Soft Last BM Date: 01/19/25 O2 Delivery Method: Nasal cannula, FiO2 (%): 40 %, O2 Flow Rate (L/min): 2 L/min Labs and meds reviewed: Scheduled Meds[1] Continuous Meds[2] BMP: Recent Labs 01/17/25 0428 01/18/25 0549 01/18/25 0823 01/19/25 0631 NA 141 141 -- 143 K 3.8 3.4* 3.4* 3.4* CL 106 106 -- 111* CO2 24 21* -- 21* BUN 55* 39* -- 34* CREATININE 1.03 0.92 -- 0.95 GLUCOSE 103 103 -- 109 CALCIUM 8.7* 9.2 -- 9.5 MG 2.3 2.2 -- 2.0 PHOS 3.6 3.8 -- 3.8 Lab Results Component Value Date HGBA1C 5.8 (H) 01/12/2025 Lab Results Component Value Date EFBP 63 01/11/2025 Lab Results Component Value Date CHOL 174 01/12/2025 HDL 49 (L) 01/12/2025 TRIG 164 (H) 01/12/2025 Current Nutrition Therapies: Adult diet Regular; Low Sodium (2 gm); 5 carb choices (75 gm/meal) Current Oral Intake Average Meal Intake: 1-25%, 26-50%, 51-75%, 76-100%, 0% (variable) Average Supplements Intake: 76-100% (per pt) Anthropometric Measures: Height: 160 cm (5' 3) Current Body Weight: 69.1 kg (152 lb 4.8 oz) (01/19) Weight Source: Not Specified Admission Body Weight: 68.3 kg (150 lb 9.2 oz) (standing scale 01/09) Usual Body Weight: (153# on 10/23/24) [place] Body Weight (lbs) (Calculated): 115 lbs [place] Body Weight (Kg) (Calculated): 52 kg % [place] Body Weight (Calculated): 141.7 % BMI (kg/m2) (Calculated): 27 Weight Adjustment For: No Adjustment BMI Categories: Overweight (BMI 25.0-29.9) Wt Readings from Last 10 Encounters: 01/19/25 69.1 kg (152 lb 4.8 oz) Nutrition Diagnosis: Predicted inadequate energy intake related to altered GI function as evidenced by nausea, vomiting Nutrition Interventions: Food and/or Nutrient Delivery: Continue Current Diet, Continue Oral Nutrition Supplement Nutrition Education/Counseling: Education declined, Education initiated Coordination of Nutrition Care: Continue to monitor while inpatient Goals: Goals: Meet at least 75% of estimated needs, by next RD assessment Nutrition Monitoring and Evaluation: Behavioral-Environmental Outcomes: None Identified Food/Nutrient Intake Outcomes: Food and Nutrient Intake, Supplement Intake Physical Signs/Symptoms Outcomes: Biochemical Data, Chewing or Swallowing, GI Status, Nausea or Vomiting, Skin, Weight, Nutrition Focused Physical Findings, Hemodynamic Status, Fluid Status or Edema Discharge Planning: Too soon to determine Karolyn Kumar RD, LD Contact: *[phone] or via [employer]finch chat [1] aspirin, 81 mg, Oral, Daily chlorhexidine, , Topical, Daily enoxaparin, 40 mg, SubCUTAneous, q24h furosemide, 20 mg, IntraVENous, Daily latanoprost, 1 drop, Both Eyes, Nightly Lidocaine, 1 patch, Topical, Daily melatonin, 5 mg, Oral, Nightly metoprolol tartrate, 25 mg, Oral, BID mirtazapine, 15 mg, Oral, Nightly pantoprazole, 40 mg, Oral, qAM AC polyethylene glycol (PEG) 3350, 17 g, Oral, Daily potassium chloride, 40 mEq, Oral, Once senna-docusate sodium, 2 tablet, Oral, Nightly sodium chloride 0.9%, 5-40 mL, IntraCATHeter, q8h [2] lactated ringers, 250 mL, Last Rate: Stopped (01/13/25 0140) Images from the original note were not included. PHYSICAL THERAPY [facility] Treatment Note Name/MRN: Ritika Santana ([id number]) Date of : 1945 Age: 79 y.o. Room/Bed: T1-103/T1-103 A Discharge Recommendation: IP Rehab Other: TBD Prior Level of Function Prior Level of ADL Function: Independent Prior Level of Mobility: Independent; Device: None Prior Level of Transfers: Independent Assessment Pt requires min assist for transfers and ambulation. Verbal cues needed for sternal precaution compliance. Pt demos decreased strength, balance, and overall functional mobility. She would be able to tolerate 15 hours of therapy per week. No PT goals met this session. Recommend IP Rehab at discharge. Subjective Pt is reclined in the chair, agrees to PT. Pain: Pt denies any current pain. Medical Precautions: No active isolations Proper PPE donned/doffed in accordance with facility standards. Fall Risk: Suazo Fall Risk Score: 60 (High Risk) Precautions/Restrictions: Sternal Precautions: No lifting greater than 10 lbs. Ok for modified UE precautions using Keep Your Move in the Tube technique Lines/Drains/Airways: tele, PIV Skin care precautions Overall Cognitive Status: WFL Overall Orientation Status: Oriented to Place and Oriented to Person Family/Caregiver Present: spouse Objective Transfers/Mobility Sit to stand: Min Assist Stand to sit: Min Assist Verbal cues needed for sternal precaution compliance Ambulation Ambulation 1 Assistive device(s) used: Divine Assist level: Min Assist Distance (ft): 50 ft x 2 Exercises Exercises Upper Extremity: P&C exercises 1-9 x 10 reps each Other exercises Other exercises 1: I.S. x5 reps, 250-500ml, cues given for improved technique, edu on frequency Plan Continue acute PT per plan of care. Safety/Education Safety Safety Devices in place: All fall risk precautions in place, call light within reach, left in chair, patient at risk for falls, and no alarms engaged upon entry Restraints: No Education Education Given To: patient Education Provided: PT Role, PT Goals, Gait Training, Plan of Care, Precautions, Transfer Training, and Discharge Recommendations Education Method: Verbal Barriers to Learning: None Education Outcome: Verbalized Understanding and Continued Education Needed Outcome Measures AM-PAC AM-PAC Inpatient Mobility Raw Score (No Stairs) : 14 JH-HLM -HLM Score: Walked 25 ft or more (i.e. walked outside of room) Goals Patient Stated Goal: To get better Encounter Problems Encounter Problems (Active) Cardiac Patient will perform bed mobility with supervision in order to improve independence and prepare for out of bed mobility. (Not Addressed) Start: 01/13/25 Expected End: 02/10/25 Patient will complete sit to stand transfer with supervision in order to improve safety and prepare for out of bed mobility. (Progressing) Start: 01/13/25 Expected End: 02/10/25 Patient will ambulate 350 feet or ambulate 5 minutes with supervision with RPE of 14 or lower. (Progressing) Start: 01/13/25 Expected End: 02/10/25 Patient will ascend and descend 3 stairs with supervision and rail for balance only. (Not Addressed) Start: 01/13/25 Expected End: 02/10/25 Patient will be independent with P&C exercises. (Progressing) Start: 01/13/25 Expected End: 02/10/25 Patient will be independent with managing secretions and home walking program. (Progressing) Start: 01/13/25 Expected End: 02/10/25 Therapy Time Individual Co-treatment Time In 1000 Time Out 1025 Minutes 25 Timed Code Treatment Minutes: (GT, TP) April Hills PTA Cosigned by Samantha Arce, PT at 01/19/2025 4:07 PM EDT Images from the original note were not included. Cardiothoracic Surgery/[facility] Progress Note PATIENT NAME: Ritika Santana DATE: 01/19/25 HPI: 79-year-old female with past medical history of macular degeneration, GERD, paroxysmal A-fib, hypertension, presented to the ED at [facility] with complaints of worsening shortness of breath. Per patient she has always had shortness of breath but it has started to get worse recently. She also noted a dull ache radiating feeling sporadically at times that started to happen more frequently. She said these episodes initially started off lasting only a couple minutes but one of the last ones happened about 30 minutes. Cardiac enzymes were elevated in the ED and cardiology was consulted. Of note she does follow with cardiology as an outpatient for her proximal A-fib and she had called prior to her ED visit on 01/07. Patient mated with NSTEMI and cath was scheduled. Cardiac cath was completed 01/08/2025 which showed multivessel CAD involving left main She was transferred to [facility] for surgical evaluation. Surgery was discussed and she consented. She was taken to the operating room on 01/12/[address] Coreas. Surgery/Procedure: 01/12/25: s/p CABGx4 (BLANCO to LAD, svg to PDA, svg to OM1, svg to diag) with Dr. Coreas Interval History: 01/19/25, POD# 07: Afebrile, NSR on tele, BP stable, on RA this AM. Had furthest walk of stay this AM, though still requiring assistance. Pain has been tolerable, nausea better controlled. Discussing DC plan, patient willing to go to [facility]. Objective: Last BM Date: 01/19/25 Vitals: BP: 126/59, MAP (mmHg): 79, BP Method: Automatic Heart Rate: 80 Resp: 20 Temp: 36.2 C (97.2 F), Temp Source: Temporal BMI (Calculated): 26.99 BMP: Recent Labs 01/17/25 0428 01/18/25 0549 01/18/25 0823 01/19/25 0631 NA 141 141 -- 143 K 3.8 3.4* 3.4* 3.4* CL 106 106 -- 111* CO2 24 21* -- 21* BUN 55* 39* -- 34* CREATININE 1.03 0.92 -- 0.95 CALCIUM 8.7* 9.2 -- 9.5 MG 2.3 2.2 -- 2.0 PHOS 3.6 3.8 -- 3.8 CBC: Recent Labs 01/17/25 0428 01/18/25 0549 01/19/25 0631 WBC 6.6 7.7 9.6 HGB 7.8* 9.2* 9.4* HCT 24.9* 27.9* 30.0* PLT 165 192 264 MCV 92.6 91.5 93.8 RDW 15.7* 15.9* 16.3* INR: No results for input(s): INR in the last 72 hours. Physical Exam Vitals reviewed. Constitutional: General: She is not in acute distress. Appearance: She is not ill-appearing or diaphoretic. Cardiovascular: Rate and Rhythm: Normal rate and regular rhythm. Pulses: Normal pulses. Heart sounds: No murmur heard. Pulmonary: Effort: Pulmonary effort is normal. Breath sounds: No wheezing, rhonchi or rales. Abdominal: General: There is no distension. Palpations: Abdomen is soft. Tenderness: There is no abdominal tenderness. Musculoskeletal: General: Swelling present. Skin: General: Skin is warm and dry. Capillary Refill: Capillary refill takes less than 2 seconds. Findings: Bruising present. Comments: Surgical incisions well approximated, no redness, warmth or drainage noted. Neurological: General: No focal deficit present. Mental Status: She is alert and oriented to person, place, and time. Assessment: MVCAD s/p CABGx 4 HTN GERD Afib Macular degeneration Post operative Pulm Management: Normal Post-operative Course Acute blood loss anemia/consumptive coagulopathy Plan: Patient status: PCU Continue aspirin and BB. -Haven't started statin d/t elevated LFT's. -Continue to trend down slowly, likely start statin in OP. Lasix 20mg IV daily while IP. -Continue to monitor creatinine. Replete electrolytes per PRN protocols. Melatonin and remeron at night. Bowel regimen. Out of bed for meals, progressive mobility. Daily labs and CXR. GI prophy: PO protonix DVT prophy:TEDs, SCDs, and Lovenox SubQ Pulmonary hygiene: IS and Acapella Consults: Endocrinology signed off. -No home going recs. PT/OT: IPR (01/16/25) TCC/Discharge Planning: Would like to attempt IPR in [place]. Start auth as able. Central Line: []Yes [x] No Arterial Line: []Yes [x] No Swift: []Yes [x] No Restraints: []Yes [x] No Patient discussed and plan of day developed from multidisciplinary rounds between Cardiothoracic Surgery (Cardiothoracic Surgeon, CONSTANCE) and Critical Care Attending A total of 25 minutes were spent between the [id number] encounter, physical exam, reviewing the medical history, coordinating the patient's care, counseling/educating the patient, ordering medications/test/procedures, interpreting results and documenting clinical information in the patients electronic health record on the day of the encounter. The patient was seen and examined. Cardiac Core Medications: ASA, Statin, and BB EF: 55% 01/11/25 Blood Conservation: Transfused Court Abstractor: Dr. Ruth ([place]) Cosigned by Sharad Holman DO at 01/19/2025 3:21 PM EDT Images from the original note were not included. Cardiothoracic Surgery/[facility] [facility] Progress Note PATIENT NAME: Ritika Santana DATE: 01/18/25 HPI: 79-year-old female with past medical history of macular degeneration, GERD, paroxysmal A-fib, hypertension, presented to the ED at [facility] with complaints of worsening shortness of breath. Per patient she has always had shortness of breath but it has started to get worse recently. She also noted a dull ache radiating feeling sporadically at times that started to happen more frequently. She said these episodes initially started off lasting only a couple minutes but one of the last ones happened about 30 minutes. Cardiac enzymes were elevated in the ED and cardiology was consulted. Of note she does follow with cardiology as an outpatient for her proximal A-fib and she had called prior to her ED visit on 01/07. Patient mated with NSTEMI and cath was scheduled. Cardiac cath was completed 01/08/2025 which showed multivessel CAD involving left main She was transferred to [facility] for surgical evaluation. Surgery was discussed and she consented. She was taken to the operating room on 01/12/[address] Coreas Surgery/Procedure: 01/12/25: s/p CABGx4 (BLANCO to LAD, svg to PDA, svg to OM1, svg to diag) with Dr. Coreas Interval History: 01/18/25, POD# 6: VSS on/off NC over night - RA during the day; able to walk in the benton. Did not sleep much last night - Remeron attempted didn't help. Review of Systems Constitutional: Positive for fatigue. Negative for diaphoresis and fever. Respiratory: Negative for cough, shortness of breath and wheezing. Cardiovascular: Negative for chest pain, palpitations and leg swelling. Gastrointestinal: Negative for abdominal distention, constipation, diarrhea and nausea. Skin: Negative for color change, pallor and rash. Objective: Last BM Date: 01/17/25 Vitals: BP: 109/76, MAP (mmHg): 86, BP Method: Automatic Heart Rate: 63 Resp: (!) 28 Temp: 36.2 C (97.2 F), Temp Source: Temporal BMI (Calculated): 28.98 CXR: BMP: Recent Labs 01/16/25 03501/17/25 0428 NA 136 141 K 3.9 3.8 CL 107 106 CO2 20* 24 BUN 49* 55* CREATININE 1.13* 1.03 CALCIUM 8.7* 8.7* MG 2.4 2.3 PHOS 2.9 3.6 CBC: Recent Labs 01/16/25 0357 01/17/25 0428 01/18/25 0549 WBC 7.3 6.6 7.7 HGB 7.3* 7.8* 9.2* HCT 22.4* 24.9* 27.9* PLT 116* 165 192 MCV 90.7 92.6 91.5 RDW 15.8* 15.7* 15.9* Physical Exam Cardiovascular: Rate and Rhythm: Normal rate and regular rhythm. Heart sounds: Normal heart sounds. No murmur heard. No friction rub. Pulmonary: Effort: Pulmonary effort is normal. Skin: General: Skin is warm and dry. Capillary Refill: Capillary refill takes less than 2 seconds. Findings: Bruising and ecchymosis present. Comments: Surgical Incisions: well approximate; clean dry with no drainage noted. Surrounding skin no redness, warmth, or signs of infection noted. Neurological: Mental Status: She is alert. Psychiatric: Behavior: Behavior is cooperative. Assessment: MVCAD s/p CABGx 4 HTN GERD Afib Macular degeneration Post operative Pulm Management: Normal Post-operative Course Acute blood loss anemia/consumptive coagulopathy Plan: Patient Status: Tele Medications: ASA BB -holding statin due to elevated LFTs Continue lasix daily - 20mg IVP Continue home latanoprost GI prophy: PO protonix DVT prophy: Lovenox SubQ Bowel: senna/miralax Interventions: Pulmonary hygiene: IS and Acapella LAITHs, SCDs Restraints: []Yes [x] No Consults: Endocrinology following- insulin management D/c recs: TBD Therapies: PT: IPR OT: IPR Disposition: TBD - patient agreeable to IPR - would like closer to where she lives if able Tele Status A total of 16 minutes were spent between the uigs-ri-[id number] encounter, physical exam, reviewing the medical history, coordinating the patient's care, counseling/educating the patient, ordering medications/test/procedures, interpreting results and documenting clinical information in the patients electronic health record on the day of the encounter. The patient was seen and examined Patient discussed and plan of day developed from multidisciplinary rounds between Cardiothoracic Surgery (Cardiothoracic Surgeon, CONSTANCE) and Critical Care Attending Cardiac Core Medications: ASA, Statin, and BB EF: 55% 01/11/25 Blood Conservation: Transfused postoperatively Court Abstractor: Dr. Ruth ([place]) Cosigned by Manolo Huff MD at 01/18/2025 9:38 AM EDT Associated attestation - Manolo Huff MD - 01/18/2025 9:38 AM EDT I have personally performed a face to face diagnostic evaluation on this patient today on 01/18/25. Labs, imaging studies, and electronic medical record notes on [facility] have been reviewed by me. This note documented and discussed by the []wildlife conservation officer []Fellow [x] CONSTANCE reflects my history, exam and medical decision making. I have reviewed and agree with the care plan. Changes were made in the orders as necessary. ROS documentation was reviewed and negative unless otherwise stated in the HPI. My history, exam, assessment and plan are as follows: Some elements copied from my notes, which have been updated where appropriate. All reflect current medical decision making from 01/18/25. Physical Exam listed was completed in entirely on 01/18/25 and is unchanged except where noted. Time spent for coordination of care: a subsequent visit: 25 minutes (Level I) Awake, in chair, on nasal cannula Resp unlabored MVCAD 6/2 s/p CABG x 4, Left atrial clip Post op pulm management, atelectasis Right pleural effusion 6/4 s/p thora ELVIRA, NAGMA Anemia, thrombocytopenia expected post op Wean O2 as tolerated On ASA b-clark held this am for hypotension Lasix diuresis as tolerated Images from the original note were not included. Cardiothoracic Surgery/CCM Progress Note PATIENT NAME: Ritika Santana DATE: 01/17/25 HPI: 79-year-old female with past medical history of macular degeneration, GERD, paroxysmal A-fib, hypertension, presented to the ED at [facility] with complaints of worsening shortness of breath. Per patient she has always had shortness of breath but it has started to get worse recently. She also noted a dull ache radiating feeling sporadically at times that started to happen more frequently. She said these episodes initially started off lasting only a couple minutes but one of the last ones happened about 30 minutes. Cardiac enzymes were elevated in the ED and cardiology was consulted. Of note she does follow with cardiology as an outpatient for her proximal A-fib and she had called prior to her ED visit on 01/07. Patient mated with NSTEMI and cath was scheduled. Cardiac cath was completed 01/08/2025 which showed multivessel CAD involving left main She was transferred to [facility] for surgical evaluation. Surgery was discussed and she consented. She was taken to the operating room on 01/12/[address] Coreas Surgery/Procedure: 01/12/25: s/p CABGx4 (BLANCO to LAD, svg to PDA, svg to OM1, svg to diag) with Dr. Coreas Interval History: 01/17/25, POD# 5: VSS on 2LNC - desats with talking. Nausea has improved. Tolerating liquids - really hasn't ate much. Also stated she has not been walking in the benton yet. Pain controlled. Just tired currently. Family at bedside. Review of Systems Constitutional: Positive for fatigue. Negative for diaphoresis and fever. Respiratory: Negative for cough, shortness of breath and wheezing. Cardiovascular: Negative for chest pain, palpitations and leg swelling. Gastrointestinal: Positive for nausea. Negative for abdominal distention, constipation and diarrhea. Skin: Negative for color change, pallor and rash. Objective: Last BM Date: 01/17/25 Vitals: BP: (!) 109/48, MAP (mmHg): 68, BP Method: Automatic Heart Rate: 59 Resp: 17 Temp: 36.7 C (98 F), Temp Source: Temporal BMI (Calculated): 28.98 CXR: BMP: Recent Labs 01/15/25 0310 01/16/25 0357 01/17/25 0428 NA 137 136 141 K 4.2 3.9 3.8 CL 109* 107 106 CO2 19* 20* 24 BUN 35* 49* 55* CREATININE 1.10 1.13* 1.03 CALCIUM 8.7* 8.7* 8.7* MG 2.1 2.4 2.3 PHOS 2.7 2.9 3.6 CBC: Recent Labs 01/15/25 0157 01/16/25 0357 01/17/25 0428 WBC 9.0 7.3 6.6 HGB 8.2* 7.3* 7.8* HCT 25.1* 22.4* 24.9* PLT 102* 116* 165 MCV 91.3 90.7 92.6 RDW 15.8* 15.8* 15.7* Physical Exam Cardiovascular: Rate and Rhythm: Normal rate and regular rhythm. Heart sounds: Normal heart sounds. No murmur heard. No friction rub. Pulmonary: Effort: Pulmonary effort is normal. Skin: General: Skin is warm and dry. Capillary Refill: Capillary refill takes less than 2 seconds. Findings: Bruising and ecchymosis present. Comments: Surgical Incisions: well approximate; clean dry with no drainage noted. Surrounding skin no redness, warmth, or signs of infection noted. Neurological: Mental Status: She is alert. Psychiatric: Behavior: Behavior is cooperative. Assessment: MVCAD s/p CABGx 4 HTN GERD Afib Macular degeneration Post operative Pulm Management: Normal Post-operative Course Acute blood loss anemia/consumptive coagulopathy Plan: Patient Status: Tele Medications: ASA BB -holding statin due to elevated LFTs Stop reglan Continue lasix daily - 20mg IVP Continue home latanoprost GI prophy: PO protonix DVT prophy: Lovenox SubQ Bowel: senna/miralax Interventions: Wean O2 Pulmonary hygiene: IS and Acapella TEDlukas, SCDs Lines/Drains: -CVC: 01/12 - remove today Restraints: []Yes [x] No Consults: Endocrinology following- insulin management D/c recs: TBD Therapies: PT: IPR OT: IPR Disposition: TBD Tele Status A total of 18 minutes were spent between the ijzn-kv-[id number] encounter, physical exam, reviewing the medical history, coordinating the patient's care, counseling/educating the patient, ordering medications/test/procedures, interpreting results and documenting clinical information in the patients electronic health record on the day of the encounter. The patient was seen and examined Patient discussed and plan of day developed from multidisciplinary rounds between Cardiothoracic Surgery (Cardiothoracic Surgeon, CONSTANCE) and Critical Care Attending Cardiac Core Medications: ASA, Statin, and BB EF: 55% 01/11/25 Blood Conservation: Transfused postoperatively Court Abstractor: Dr. Ruth ([place]) Cosigned by Manolo Huff MD at 01/17/2025 1:07 PM EDT Associated attestation - Manolo Huff MD - 01/17/2025 1:07 PM EDT I have personally performed a face to face diagnostic evaluation on this patient today on 01/17/25. Labs, imaging studies, and electronic medical record notes on [facility] have been reviewed by me. This note documented and discussed by the []wildlife conservation officer []Fellow [x] CONSTANCE reflects my history, exam and medical decision making. I have reviewed and agree with the care plan. Changes were made in the orders as necessary. ROS documentation was reviewed and negative unless otherwise stated in the HPI. My history, exam, assessment and plan are as follows: Some elements copied from my notes, which have been updated where appropriate. All reflect current medical decision making from 01/17/25. Physical Exam listed was completed in entirely on 01/17/25 and is unchanged except where noted. Time spent for coordination of care: a subsequent visit: 25 minutes (Level I) Awake, in chair Heart RRR Lungs symmetric breath sounds anteriorly, unlabored MVCAD 6/2 s/p CABG x 4, Left atrial clip Post op pulm management, atelectasis Right pleural effusion 6/4 s/p thora ELVIRA, NAGMA Anemia, thrombocytopenia expected post op Wean O2 as tolerated On ASA, b-clark Lasix diuresis as tolerated Transfuse prn [facility] Department Progress Note Comment or reasoning for refusal: Patient was seen in attempts to fulfill CPAP/BiPAP/AutoPAP order. Patient refused PAP therapy/study at this time. Patient was educated on medical need and reasoning for physician order to ensure patient was making an informed medical decision. All of the patient's questions were answered at this time and patient was informed that if the patient changes their mind regarding wearing PAP to hit their call light or inform their nurse to contact Respiratory. A second, consecutive night of refusing PAP therapy/study results in order completion in the EMR. If future CPAP/BiPAP/AutoPAP therapy or study is indicated please place another order in the EMR and the assigned Respiratory Therapist will reattempt to fulfill orders. Reason for refusal:Doesn't want to wear Thank you for involving Respiratory in the care of this patient, Images from the original note were not included. Cardiothoracic Surgery Note PATIENT NAME: Ritika Santana : 1945 (79 y.o.) TODAY'S DATE: 01/16/2025 Objective: BP 119/80 Pulse 73 Temp 36.1 C (97 F) (Temporal) Resp 19 Ht 5' 3 (1.6 m) Wt 163 lb 9.3 oz (74.2 kg) SpO2 94% BMI 28.98 kg/m Chest tubes assessed: no air leak, subcutaneous air noted. Chest tubes removed without difficulty and dressing applied. Patient tolerated well. Patient and nurse educated on possible complications to observe for. Will continue to monitor. Images from the original note were not included. PHYSICAL THERAPY [facility] Treatment Note Name/MRN: Ritika Santana ([id number]) Date of : 1945 Age: 79 y.o. Room/Bed: T1-103/T1103 A Discharge Recommendation: IP Rehab Other: TBD Prior Level of Function Prior Level of ADL Function: Independent Prior Level of Mobility: Independent; Device: None Prior Level of Transfers: Independent Assessment Pt sleepy today secondary to not sleeping last night. Verbal cues and demo needed for proper technique of exercises. No PT goals met this session. Recommend IP Rehab at discharge. Subjective Pt is reclined in the chair, agrees to PT. Tired. Didn't sleep well last night. Pain: RN managing pain. Deleon-Stevens Pain Ratin = Hurts a little bit Pain Location: chest/incision Medical Precautions: No active isolations Proper PPE donned/doffed in accordance with facility standards. Fall Risk: Suazo Fall Risk Score: 60 (High Risk) Precautions/Restrictions: Sternal Precautions: No lifting greater than 10 lbs. Ok for modified UE precautions using Keep Your Move in the Tube technique Lines/Drains/Airways: tele, continuous pulse ox, temporary pacer, chest tube to suction, swift, 4L O2 NC, art line LUE, CVC R IJ Skin care precautions Overall Cognitive Status: WFL Overall Orientation Status: Oriented to Place and Oriented to Person Family/Caregiver Present: spouse and child(faith) Objective Exercises Exercises Upper Extremity: P&C exercises 1-9 x 8 reps each Comments: I.S. 250-500 mL Plan Continue acute PT per plan of care. Safety/Education Safety Safety Devices in place: All fall risk precautions in place, call light within reach, and left in chair Restraints: No Education Education Given To: patient Education Provided: PT Role, PT Goals, Plan of Care, Precautions, and Discharge Recommendations Education Method: Verbal Barriers to Learning: None Education Outcome: Verbalized Understanding and Continued Education Needed Outcome Measures AM-PAC AM-PAC Inpatient Mobility Raw Score (No Stairs) : 12 JH-HLM -HLM Score: Bed activity Goals Patient Stated Goal: To get better Encounter Problems Encounter Problems (Active) Cardiac Patient will perform bed mobility with supervision in order to improve independence and prepare for out of bed mobility. (Not Addressed) Start: 01/13/25 Expected End: 02/10/25 Patient will complete sit to stand transfer with supervision in order to improve safety and prepare for out of bed mobility. (Not Addressed) Start: 01/13/25 Expected End: 02/10/25 Patient will ambulate 350 feet or ambulate 5 minutes with supervision with RPE of 14 or lower. (Not Addressed) Start: 01/13/25 Expected End: 02/10/25 Patient will ascend and descend 3 stairs with supervision and rail for balance only. (Not Addressed) Start: 01/13/25 Expected End: 02/10/25 Patient will be independent with P&C exercises. (Progressing) Start: 01/13/25 Expected End: 02/10/25 Patient will be independent with managing secretions and home walking program. (Progressing) Start: 01/13/25 Expected End: 02/10/25 Therapy Time Individual Co-treatment Time In 1150 Time Out 1208 Minutes 18 Timed Code Treatment Minutes: (TP) [place] PTA Cosigned by Samantha Arce PT at 01/16/2025 4:31 PM EDT Images from the original note were not included. Cardiothoracic Surgery/CCM Progress Note PATIENT NAME: Ritika Santana DATE: 01/16/25 HPI: 79-year-old female with past medical history of macular degeneration, GERD, paroxysmal A-fib, hypertension, presented to the ED at [facility] with complaints of worsening shortness of breath. Per patient she has always had shortness of breath but it has started to get worse recently. She also noted a dull ache radiating feeling sporadically at times that started to happen more frequently. She said these episodes initially started off lasting only a couple minutes but one of the last ones happened about 30 minutes. Cardiac enzymes were elevated in the ED and cardiology was consulted. Of note she does follow with cardiology as an outpatient for her proximal A-fib and she had called prior to her ED visit on 01/07. Patient mated with NSTEMI and cath was scheduled. Cardiac cath was completed 01/08/2025 which showed multivessel CAD involving left main She was transferred to [facility] for surgical evaluation. Surgery was discussed and she consented. She was taken to the operating room on 01/12/[address] Coreas Surgery/Procedure: 01/12/25: s/p CABGx4 (BLANCO to LAD, svg to PDA, svg to OM1, svg to diag) with Dr. Coreas Interval History: 01/16/25, POD# 04. Afebrile, NSR on tele, BP stable, on 2L NC. Patient sitting up in chair, awake and alert. Pain in L flank, likely chest tube related. Nausea improved. Objective: CT output cc/24hrs: 1,410 UO cc/24hrs: 246 Last BM Date: 01/15/25 Vitals: BP: 111/61, MAP (mmHg): 77, BP Method: Automatic Heart Rate: 83 Resp: 19 Temp: 36.1 C (97 F), Temp Source: Temporal BMI (Calculated): 28.98 BMP: Recent Labs 01/14/25 0003 01/14/25 0624 01/14/25 1120 01/15/25 0310 01/16/25 0357 NA 138 -- 137 137 136 K 3.3* 3.6 4.1 4.2 3.9 CL 108* -- 108* 109* 107 CO2 20* -- 21* 19* 20* BUN 21 -- 24* 35* 49* CREATININE 1.19* -- 1.07 1.10 1.13* CALCIUM 8.5* -- 8.7* 8.7* 8.7* MG 2.0 -- -- 2.1 2.4 PHOS -- 3.1 -- 2.7 2.9 CBC: Recent Labs 01/14/25 0003 01/15/25 0157 01/16/25 0357 WBC 8.4 9.0 7.3 HGB 7.9* 8.2* 7.3* HCT 24.3* 25.1* 22.4* PLT 86* 102* 116* MCV 89.7 91.3 90.7 RDW 16.0* 15.8* 15.8* INR: No results for input(s): INR in the last 72 hours. Physical Exam Vitals reviewed. Constitutional: General: She is not in acute distress. Appearance: She is not ill-appearing or diaphoretic. Neck: Comments: Central line. Cardiovascular: Rate and Rhythm: Normal rate and regular rhythm. Pulses: Normal pulses. Heart sounds: No murmur heard. Pulmonary: Effort: Pulmonary effort is normal. Breath sounds: No wheezing, rhonchi or rales. Comments: Diminished bilaterally. On NC. Abdominal: General: There is no distension. Palpations: Abdomen is soft. Tenderness: There is no abdominal tenderness. Comments: Chest tubes. Musculoskeletal: General: No swelling. Skin: General: Skin is warm and dry. Capillary Refill: Capillary refill takes less than 2 seconds. Findings: Bruising present. Comments: Surgical incisions well approximated, no redness, warmth or drainage noted. Neurological: General: No focal deficit present. Mental Status: She is alert and oriented to person, place, and time. Assessment: MVCAD s/p CABGx 4 HTN GERD Afib Macular degeneration Hiatal hernia Post operative Pulm Management: Normal Post-operative Course Acute blood loss anemia/consumptive coagulopathy Plan: Patient status: Change to PCU Remove central line. Continue aspirin. -Hold statin until LFT's normalize. Metoprolol 12.5mg BID. -Increase as BP/HR tolerates. Lasix 20mg IV daily. Remove chest tubes today. Scheduled protonix, and reglan. PRN zofran. -Nausea improved. Encourage PO intake. Out of bed. Progressive mobility as able. Wean O2, goal SpO2>92%. Daily labs and CXR. GI prophy: PO protonix DVT prophy:TEDs, SCDs, and Lovenox SubQ Pulmonary hygiene: IS and Acapella Consults: Endocrinology. PT/OT: IPR (01/15/25). TCC/Discharge Planning: TBD. Central Line: [x]Yes [] No Arterial Line: [x]Yes [] No Swift: []Yes [x] No Restraints: []Yes [x] No Patient discussed and plan of day developed from multidisciplinary rounds between Cardiothoracic Surgery (Cardiothoracic Surgeon, CONSTANCE) and Critical Care Attending Critical Care time spent 20 minutes. The time involved in the performance of this care was exclusive of separately billable procedures, teaching time and treating other patients. The time was spent personally by myself for the following activities: examination of the patient, ordering and/or performing treatment, reviewing the laboratory and radiographic studies, and if applicable, ventilator management and blood gas interpretation. Cardiac Core Medications: ASA, Statin, and BB EF: 55% (01/11/25) Blood Conservation: Transfused Court Abstractor: [facility] Cosigned by Manolo Huff MD at 01/16/2025 12:27 PM EDT Associated attestation - Mnaolo Huff MD - 01/16/2025 12:27 PM EDT I have personally performed a face to face diagnostic evaluation on this patient today on 01/16/25. Labs, imaging studies, and electronic medical record notes on [facility] have been reviewed by me. This note documented and discussed by the []wildlife conservation officer []Fellow [x] CONSTANCE reflects my history, exam and medical decision making. I have reviewed and agree with the care plan. Changes were made in the orders as necessary. ROS documentation was reviewed and negative unless otherwise stated in the HPI. My history, exam, assessment and plan are as follows: Some elements copied from my notes, which have been updated where appropriate. All reflect current medical decision making from 01/16/25. Physical Exam listed was completed in entirely on 01/16/25 and is unchanged except where noted. Pt no longer critical care Time spent for coordination of care: a subsequent visit: 25 minutes (Level I) Awake, in chair Heart RRR Lungs coarse symmetric breath sounds anteriorly, unlabored MVCAD 6/2 s/p CABG x 4, Left atrial clip Post op pulm management, atelectasis Right pleural effusion 6/4 s/p thora ELVIRA, NAGMA Anemia, thrombocytopenia expected post op Wean O2 as tolerated, cpap with naps and at night On ASA, b-clark Lasix diuresis as tolerated Transfuse prn [facility] Department Progress Note Comment or reasoning for refusal: Patient was seen in attempts to fulfill CPAP/BiPAP/AutoPAP order. Patient refused PAP therapy/study at this time. Patient was educated on medical need and reasoning for physician order to ensure patient was making an informed medical decision. All of the patient's questions were answered at this time and patient was informed that if the patient changes their mind regarding wearing PAP to hit their call light or inform their nurse to contact Respiratory. A second, consecutive night of refusing PAP therapy/study results in order completion in the EMR. If future CPAP/BiPAP/AutoPAP therapy or study is indicated please place another order in the EMR and the assigned Respiratory Therapist will reattempt to fulfill orders. Reason for refusal: refused Thank you for involving Respiratory in the care of this patient, Images from the original note were not included. PHYSICAL THERAPY [facility] Treatment Note Name/MRN: Ritika Santana ([id number]) Date of : 1945 Age: 79 y.o. Room/Bed: T1-103/T1-103 A Discharge Recommendation: IP Rehab Other: TBD Prior Level of Function Prior Level of ADL Function: Independent Prior Level of Mobility: Independent; Device: None Prior Level of Transfers: Independent Assessment Pt requires mod assist for transfers this session. Verbal cues needed for sternal precautions and for technique of exercises. No PT goals met this session. Recommend IP Rehab at discharge. Subjective Pt is reclined in the chair, agrees to PT. Pain: Deleon-Stevens Pain Ratin = Hurts little more Pain Location: chest/incision Medical Precautions: No active isolations Proper PPE donned/doffed in accordance with facility standards. Fall Risk: Suazo Fall Risk Score: 35 (Medium Risk) Precautions/Restrictions: Sternal Precautions: No lifting greater than 10 lbs. Ok for modified UE precautions using Keep Your Move in the Tube technique Lines/Drains/Airways: tele, continuous pulse ox, temporary pacer, chest tube to suction, swift, 4L O2 NC, art line LUE, CVC R IJ Skin care precautions Overall Cognitive Status: WFL Overall Orientation Status: Oriented to Place and Oriented to Person Family/Caregiver Present: spouse and child(faith) Objective Transfers/Mobility Sit to stand: Mod Assist Stand to sit: Mod Assist Verbal cues needed for hand placement Ambulation Ambulation 1 Assistive device(s) used: Used therapist for support Assist level: Mod Assist Distance (ft): 3 ft x 2 ( Chair to BSC, BSC to chair) Balance During Session: Static stand at BSC with min to mod assist x 1 while dependent for hygiene after BM Exercises Exercises Upper Extremity: P&C exercises 1-9 x 8 reps each Comments: I.S. 250-500 mL Plan Continue acute PT per plan of care. Safety/Education Safety Safety Devices in place: All fall risk precautions in place, call light within reach, left in chair, and no alarms engaged upon entry Restraints: No Education Education Given To: patient Education Provided: PT Role, PT Goals, Plan of Care, Precautions, and Discharge Recommendations Education Method: Verbal Barriers to Learning: None Education Outcome: Verbalized Understanding and Continued Education Needed Outcome Measures AM-PAC AM-PAC Inpatient Mobility Raw Score (No Stairs) : 12 JH-HLM -HLM Score: Static standing (1 or more minutes) Goals Patient Stated Goal: To get better Encounter Problems Encounter Problems (Active) Cardiac Patient will perform bed mobility with supervision in order to improve independence and prepare for out of bed mobility. (Not Addressed) Start: 01/13/25 Expected End: 02/10/25 Patient will complete sit to stand transfer with supervision in order to improve safety and prepare for out of bed mobility. (Progressing) Start: 01/13/25 Expected End: 02/10/25 Patient will ambulate 350 feet or ambulate 5 minutes with supervision with RPE of 14 or lower. (Not Addressed) Start: 01/13/25 Expected End: 02/10/25 Patient will ascend and descend 3 stairs with supervision and rail for balance only. (Not Addressed) Start: 01/13/25 Expected End: 02/10/25 Patient will be independent with P&C exercises. (Progressing) Start: 01/13/25 Expected End: 02/10/25 Patient will be independent with managing secretions and home walking program. (Progressing) Start: 01/13/25 Expected End: 02/10/25 Therapy Time Individual Co-treatment Time In 1502 Time Out 1533 Minutes 31 Timed Code Treatment Minutes: (FA, TP) April Hills PTA Cosigned by Samuel Paez PT at 01/16/2025 7:42 AM EDT Images from the original note were not included. Cardiothoracic Surgery/[facility] Progress Note PATIENT NAME: Ritika Santana DATE: 01/15/25 HPI: 79-year-old female with past medical history of macular degeneration, GERD, paroxysmal A-fib, hypertension, presented to the ED at [facility] with complaints of worsening shortness of breath. Per patient she has always had shortness of breath but it has started to get worse recently. She also noted a dull ache radiating feeling sporadically at times that started to happen more frequently. She said these episodes initially started off lasting only a couple minutes but one of the last ones happened about 30 minutes. Cardiac enzymes were elevated in the ED and cardiology was consulted. Of note she does follow with cardiology as an outpatient for her proximal A-fib and she had called prior to her ED visit on 01/07. Patient mated with NSTEMI and cath was scheduled. Cardiac cath was completed 01/08/2025 which showed multivessel CAD involving left main She was transferred to [facility] for surgical evaluation. Surgery was discussed and she consented. She was taken to the operating room on 01/12/[address] Coreas Surgery/Procedure: 01/12/25: s/p CABGx4 (BLANCO to LAD, svg to PDA, svg to OM1, svg to diag) with Dr. Coreas Interval History: 01/15/25, POD# 03. Afebrile, ST, BP stable off of pressor support, on 3L NC. Up in chair this AM. Remains nauseated at times, pain in L flank (likely chest tube). R thora yesterday for 450mL. Objective: CT output cc/24hrs: 1,525 UO cc/24hrs: 440 Last BM Date: 01/15/25 Vitals: BP: 142/66, MAP (mmHg): 89, BP Method: Automatic Heart Rate: 109 Resp: (!) 30 Temp: 37 C (98.6 F), Temp Source: Oral BMI (Calculated): 29.3 BMP: Recent Labs 01/12/25 1154 01/12/25 1352 01/13/25 0204 01/13/257 01/14/25 0003 01/14/25 0624 01/14/25 1120 01/15/25 0310 NA 145 < > 142 < > 138 -- 137 137 K 3.5 < > 4.4 < > 3.3* 3.6 4.1 4.2 CL 117* < > 113* < > 108* -- 108* 109* CO2 18* < > 20* < > 20* -- 21* 19* BUN 21 < > 19 < > 21 -- 24* 35* CREATININE 0.84 < > 0.83 < > 1.19* -- 1.07 1.10 CALCIUM 9.1 < > 8.9 < > 8.5* -- 8.7* 8.7* MG 4.5* < > 2.2 -- 2.0 -- -- 2.1 PHOS 3.4 -- -- -- -- 3.1 -- 2.7 < > = values in this interval not displayed. CBC: Recent Labs 01/13/25221601/14/25 0003 01/15/25 0157 WBC 8.4 8.4 9.0 HGB 7.8* 7.9* 8.2* HCT 23.2* 24.3* 25.1* PLT 84* 86* 102* MCV 88.9 89.7 91.3 RDW 16.0* 16.0* 15.8* INR: Recent Labs 01/12/25 1352 01/12/25 1822 01/13/25 0204 INR 1.3* 1.2* 1.2* Physical Exam Vitals reviewed. Constitutional: General: She is not in acute distress. Appearance: She is not ill-appearing or diaphoretic. Neck: Comments: Central line. Cardiovascular: Rate and Rhythm: Normal rate and regular rhythm. Pulses: Normal pulses. Heart sounds: No murmur heard. Pulmonary: Effort: Pulmonary effort is normal. Breath sounds: No wheezing, rhonchi or rales. Comments: Diminished bilaterally. On NC. Abdominal: General: There is no distension. Palpations: Abdomen is soft. Tenderness: There is no abdominal tenderness. Comments: Chest tubes. Genitourinary: Comments: Swift. Musculoskeletal: General: No swelling. Skin: General: Skin is warm and dry. Capillary Refill: Capillary refill takes less than 2 seconds. Findings: Bruising present. Comments: Surgical incisions well approximated, no redness, warmth or drainage noted. Neurological: General: No focal deficit present. Mental Status: She is alert and oriented to person, place, and time. Assessment: MVCAD s/p CABGx 4 HTN GERD Afib Macular degeneration Hiatal hernia Post operative Pulm Management: Normal Post-operative Course Acute blood loss anemia/consumptive coagulopathy Plan: Patient status: ICU Remove arterial line and swift today. Continue aspirin and statin. Start low dose BB, will increase as HR/BP tolerates. Lasix 20mg IV x1 today. Hold acetaminophen and statin d/t elevated LFT's, monitor. Zofran PRN for nausea. Scheduled reglan and protonix. -Patient takes Nexium at home for GERD symptoms/Hiatal hernia. Re-order toradol for 2 doses today. Monitor creatinine closely. Encourage PO intake. Out of bed. Progressive mobility as able. Wean O2, goal SpO2>92%. Daily labs and CXR. GI prophy: PO protonix DVT prophy:TEDs, SCDs, and Lovenox SubQ Pulmonary hygiene: IS and Acapella Consults: Endocrinology. PT/OT: IPR (01/14/25). TCC/Discharge Planning: TBD. Central Line: [x]Yes [] No Arterial Line: [x]Yes [] No Swift: [x]Yes [] No Restraints: []Yes [x] No Patient discussed and plan of day developed from multidisciplinary rounds between Cardiothoracic Surgery (Cardiothoracic Surgeon, CONSTANCE) and Critical Care Attending Critical Care time spent 20 minutes. The time involved in the performance of this care was exclusive of separately billable procedures, teaching time and treating other patients. The time was spent personally by myself for the following activities: examination of the patient, ordering and/or performing treatment, reviewing the laboratory and radiographic studies, and if applicable, ventilator management and blood gas interpretation. Cardiac Core Medications: ASA, Statin, and BB EF: 55% (01/11/25) Blood Conservation: Transfused Court Abstractor: [facility] Cosigned by Manolo Huff MD at 01/15/2025 11:05 AM EDT Associated attestation - Manolo Huff MD - 01/15/2025 11:05 AM EDT I have personally performed a face to face diagnostic evaluation on this patient today on 01/15/25. Labs, imaging studies, and electronic medical record notes on [facility] have been reviewed by me. This note documented and discussed by the []wildlife conservation officer []Fellow [x] CONSTANCE reflects my history, exam and medical decision making. I have reviewed and agree with the care plan. Changes were made in the orders as necessary. ROS documentation was reviewed and negative unless otherwise stated in the HPI. My history, exam, assessment and plan are as follows: Some elements copied from my notes, which have been updated where appropriate. All reflect current medical decision making from 01/15/25. Physical Exam listed was completed in entirely on 01/15/25 and is unchanged except where noted. Pt no longer critical care Time spent for coordination of care: a subsequent visit: 50 minutes (Level III) Awake, in chair Heart RRR Lungs tachypnea, anteriorly clear MVCAD 6/2 s/p CABG x 4, Left atrial clip Post op pulm management, atelectasis Right pleural effusion 6/4 s/p thora NAGMA with hyperchloremia Anemia, thrombocytopenia expected post op Wean O2 as tolerated, try cpap Lasix diuresis as tolerated Transfuse prn Images from the original note were not included. PHYSICAL THERAPY [facility] Treatment Note Name/MRN: Ritika Santana ([id number]) Date of : 1945 Age: 79 y.o. Room/Bed: T1-103/T1-103 A Discharge Recommendation: IP Rehab Other: TBD Prior Level of Function Prior Level of ADL Function: Independent Prior Level of Mobility: Independent; Device: None Prior Level of Transfers: Independent Assessment Pt was able to complete P&C exercises. Demo given. Pt and her stated that she recently got back to bed and was tired. No PT goals met this session. Recommend IP Rehab at discharge. Subjective Pt is supine in the bed, agrees to PT. Pain: Deleon-Stevens Pain Ratin = Hurts a little bit Pain Location: chest/incision Medical Precautions: No active isolations Proper PPE donned/doffed in accordance with facility standards. Fall Risk: Suazo Fall Risk Score: 35 (Medium Risk) Precautions/Restrictions: Sternal Precautions: No lifting greater than 10 lbs. Ok for modified UE precautions using Keep Your Move in the Tube technique Lines/Drains/Airways: tele, continuous pulse ox, temporary pacer, chest tube to suction, swift, 4L O2 NC, art line LUE, CVC R IJ Skin care precautions Overall Cognitive Status: WFL Overall Orientation Status: Oriented to Place and Oriented to Person Family/Caregiver Present: spouse Objective Exercises Exercises Upper Extremity: P&C exercises 1-9 x 6-8 reps each Comments: I.S. 250-500 mL Plan Continue acute PT per plan of care. Safety/Education Safety Safety Devices in place: All fall risk precautions in place, call light within reach, and left in bed Restraints: No Education Education Given To: patient Education Provided: PT Role, PT Goals, Plan of Care, Precautions, and Discharge Recommendations Education Method: Verbal Barriers to Learning: None Education Outcome: Verbalized Understanding and Continued Education Needed Outcome Measures AM-PAC AM-PAC Inpatient Mobility Raw Score (No Stairs) : 12 JH-HLM -HLM Score: Bed activity Goals Patient Stated Goal: To get better Encounter Problems Encounter Problems (Active) Cardiac Patient will perform bed mobility with supervision in order to improve independence and prepare for out of bed mobility. (Not Addressed) Start: 01/13/25 Expected End: 02/10/25 Patient will complete sit to stand transfer with supervision in order to improve safety and prepare for out of bed mobility. (Not Addressed) Start: 01/13/25 Expected End: 02/10/25 Patient will ambulate 350 feet or ambulate 5 minutes with supervision with RPE of 14 or lower. (Not Addressed) Start: 01/13/25 Expected End: 02/10/25 Patient will ascend and descend 3 stairs with supervision and rail for balance only. (Not Addressed) Start: 01/13/25 Expected End: 02/10/25 Patient will be independent with P&C exercises. (Progressing) Start: 01/13/25 Expected End: 02/10/25 Patient will be independent with managing secretions and home walking program. (Progressing) Start: 01/13/25 Expected End: 02/10/25 Therapy Time Individual Co-treatment Time In 1552 Time Out 1604 Minutes 12 Timed Code Treatment Minutes: (TP) April Hills, INSPECTION CLERK Cosigned by Samantha Arce PT at 01/16/2025 7:28 AM EDT Images from the original note were not included. OCCUPATIONAL THERAPY [facility] Initial Evaluation Name/MRN: Ritika Santana ([id number]) Evaluation Date: 01/14/2025 Date of : 1945 Admission Date: 01/09/2025 1:06 AM Age: 79 y.o. Room/Bed: T1-103/T1-103 A Discharge Recommendation: IP Rehab Equipment Needed: (TBD) Assessment IMPRESSION: 79 y/o female admitted for CAD s/p CABG x4 and L atrial appendage clip on 01/12/25. Pt lives with and independent at baseline. Pt limited by fatigue, decreased activity tolerance, and generalized weakness. Min-mod assist functional transfers/mobility with Nezzie. Min-max assist ADLs with cues to maintain sternal precautions. Pt functioning below baseline and if were to discharge today would need IP rehab at discharge to maximize potential. However, pt may progress to home with 24/7 assist. Continue to assess pending progress. Admitting Diagnosis: CAD s/p CABG x4 and L atrial appendage clip on 01/12/25 Performance Deficits /Impairments: Increased Pain, Decreased Functional Mobility, Decreased ADL status, Decreased Strength, Decreased Safety Awareness, Decreased Endurance, Decreased Balance, Decreased ROM, and Decreased High Level IADLs Prognosis: Good Decision Making: Medium Complexity Subjective Pt sitting upright in chair, agreeable to OT. RN cleared pt for therapy. Pain: Pt denies any current pain. Past Medical History: Medical History[1] Past Surgical History: Surgical History[2] Admission Diagnosis: Patient Active Problem List Diagnosis Date Noted CAD, multiple vessel 01/09/2025 NSTEMI (non-ST elevated myocardial infarction) ([facility]) 01/09/2025 GERD (gastroesophageal reflux disease) 01/09/2025 A-fib (CMS/HCC) ([facility]) 01/09/2025 HTN (hypertension) 01/09/2025 Medical Precautions: No active isolations Proper PPE donned/doffed in accordance with facility standards. Fall Risk: Suazo Fall Risk Score: 35 (Medium Risk) Precautions/Restrictions: Sternal Precautions: No lifting greater than 10 lbs. Ok for modified UE precautions using Keep Your Move in the Tube technique Lines/Drains/Airways: tele, continuous pulse ox, temporary pacer, chest tube to suction, swift, 4L O2 NC, art line LUE, CVC R IJ Skin care precautions Family/Caregiver Present: spouse Overall Cognitive Status: WFL Overall Orientation Status: Oriented x4 Social/Functional History Patient admitted from home. Lives With: Spouse (can provide / assist/supervision) Type of Home: single family home Home Layout: Single Level Home Home Access: Stairs to Enter with Rails (# of stairs: 2-3) Bathroom Shower/Tub: Tub/Shower Combo Toilet: Standard Home Equipment: none Homemaking Responsibilities: Independent Receives Help From: Spouse Active Tanbark Peeler: Prior Level of Function Prior Level of ADL Function: Independent Prior Level of Mobility: Independent; Device: None Prior Level of Transfers: Independent Objective ADLs LE Dressing: Max Assist Toileting: Max Assist Grooming: SBA, after setup, decreased endurance requiring rest breaks UE Dressing: Min Assist Educated on energy conservation and LB dressing strategies while maintaining sternal precautions during ADLs. Pt receptive and would benefit from continued education. Upper Extremity Assessment AROM: Not formally assessed d/t sternal precautions, appear WFL. PROM: Not assessed this session Strength: Exceptions: BUE grossly 3+/5 Bed Mobility Sit to supine: Mod Assist, assist for BLEs and line management Scooting: Max Assist Transfers/Mobility Sit to stand: Min Assist, 3x trials with cues for hand placement to maintain sternal precautions Stand to sit: Min Assist, 3x trials with cues for hand placement to maintain sternal precautions Bed to chair: Min Assist Toilet: Mod Assist, difficulty with eccentric control onto low toilet Sitting balance: SBA Standing balance: Contact Guard Functional mobility: Min Assist Assist to manage lines and navigate NeChirpVision d/t art line in L hand. Pt ambulates to restroom with mod assist for eccentric control onto toilet and assist to stand from lower level. Cues to maintain sternal precautions. Transferred to chair then requested to return to bed. Device(s) used: Nezzie AM-PAC AM-PAC Inpatient Daily Activity Raw Score: 15 ADL Inpatient CMS G-Code Modifier: CK Plan Pt would benefit from skilled acute OT services to address Strengthening, ROM, Gait Training, Balance Training, Self-Care/ADL Training, Functional Mobility Training, Endurance Training, Safety Education and Training, Equipment Evaluation/Education, and Home Management Training Frequency: 4x/week for 4 weeks Barriers: Pain, Impaired balance, Lower extremity weakness, Upper extremity weakness, Decreased endurance, Limited safety awareness, and New weightbearing/ROM restrictions Safety/Education Safety Safety Devices in place: All fall risk precautions in place, call light within reach, left in bed, patient at risk for falls, nurse notified, and no alarms engaged upon entry Restraints: No Education Education Given To: patient Education Provided: OT Role, Plan of Care, Precautions, ADL Adaptive Strategies, Transfer Training, Energy Conservation, Family Education, Equipment, Fall Prevention Education, Discharge Recommendations, Benefits of Increasing Activity, and Breathing Techniques Education Method: Verbal Barriers to Learning: None Education Outcome: Verbalized Understanding and Continued Education Needed Goals Patient Stated Goal: get some sleep Encounter Problems Encounter Problems (Active) Bathing Patient will utilize adaptive techniques to bathe body mod indep. Start: 01/14/25 Expected End: 02/11/25 Dressing Upper Extremities Patient will complete upper body dressing with SUP. Start: 01/14/25 Expected End: 02/11/25 Dressings Lower Extremities Patient will dress lower body SUP with AE prn. Start: 01/14/25 Expected End: 02/11/25 Instrumental Activities of Daily Living Patient will implement energy conservation techniques during ADLs with no cues. Start: 01/14/25 Expected End: 02/11/25 Safety Patient will adhere to sternal precautions during all functional mobility and ADLs in order to demonstrate improved understanding and promote healing post op. Start: 01/14/25 Expected End: 02/11/25 Toileting Patient will complete toileting tasks at standard toilet with supervision. Start: 01/14/25 Expected End: 02/11/25 Transfers Patient will complete functional transfer with least restrictive device with supervision in order to prepare for ambulation. Start: 01/14/25 Expected End: 02/11/25 Therapy Time Individual Co-Treatment Co-Evaluation Time In 1359 Time Out 1438 Minutes 39 Timed Code Treatment Minutes: 15 Minutes (1 - FA) Variance: 5 (xray) JUANIS Dutton Patient's Occupational Therapy Plan of Care supervision is transferred to a [facility] Occupational Therapist. Goals and/or treatment plan was established in collaboration with patient/family/other representatives. [1] Past Medical History: Diagnosis Date Essential hypertension GERD (gastroesophageal reflux disease) Macular degeneration Paroxysmal atrial fibrillation (HCC) [2] Past Surgical History: Procedure Laterality Date BASAL CELL CARCINOMA EXCISION BREAST CYST EXCISION CATARACT EXTRACTION, BILATERAL Nutrition Received phone call from room service to inform RD that pt is requesting Ensure Clear instead of Ensure HP. Per MNT protocol, will modify ONS to Ensure Clear BID, per pt preference. RD will continue to monitor and follow weekly. Signed by Karolyn Kumar RD, MD on 01/14/25 at 9:58 AM. Department of Internal Medicine Division of Endocrinology, Diabetes, & Metabolism Endocrinology Note Patient Name: Ritika Santana : 1945 AGE: 79 y.o. Room/Bed: T1-103/T1-103 A Admission Date: 01/09/2025 Visit Date: 01/14/2025 Reason for Endocrine Consult: post heart Provider/Team Requesting Consult: cts PCP: Becky Marinelli Forging Press Operator: No ASSESSMENT: Stress hyperglycemia Prediabetes CABGx4 CAD/HTN Afib PLAN: Continue Humalog low sliding scale If patient's blood sugars remain stable, later this afternoon we may stop Humalog and sign off ICU goal <180 GMF goal <150 POCT BG ACHS Hypoglycemia management per protocol Carb controlled diet when tolerates ANTICIPATED ENDOCRINE HOME GOING RECOMMENDATIONS: Optimized for Discharge from Endocrine standpoint: Yes Home Going Endocrine Rx Recommendations-- none Outpt Follow Up-- PCP SUBJECTIVE/HPI: CHIEF COMPLAINT: No chief complaint on file. S/P CABGx4 No apparent hx of diabetes per chart review Bgl below Stable She is up awake alert in chair Vitals are stable on O2 nasal cannula States that she had cereal and fruit this morning for breakfast Still does not have a great appetite Chest tube in place Remains on Rainer-Synephrine pressors Denies nausea vomiting or abdominal pain Spoke with nursing team If blood sugars remain stable this afternoon we will possibly sign off Type of DM: N/A Onset of DM: N/A Home DM Medication Regimen: N/A DM control (last A1c/glucose data): Lab Results Component Value Date HGBA1C 5.8 (H) 01/12/2025 Glucose Date/Time Value Ref Range Status 01/14/2025 06:28 AM 156 (H) 70 - 100 mg/dL Final 01/13/2025 10:01 PM 149 (H) 70 - 100 mg/dL Final 01/13/2025 05:01 PM 119 (H) 70 - 100 mg/dL Final 01/13/2025 01:03 PM 98 70 - 100 mg/dL Final 01/13/2025 12:10 PM 134 (H) 70 - 100 mg/dL Final 01/13/2025 10:56 AM 129 (H) 70 - 100 mg/dL Final Review of Systems ROS negative except for those mentioned in HPI. OBJECTIVE: Vitals: 01/14/25 0630 01/14/25 0631 01/14/25 0645 01/14/25 0700 BP: 121/62 124/59 117/50 BP Location: Patient Position: Pulse: 84 86 83 89 Resp: (!) 29 (!) 31 (!) 33 Temp: TempSrc: SpO2: 96% 96% 96% 93% Weight: Height: Physical Exam Vitals and nursing note reviewed. Constitutional: General: She is awake. She is not in acute distress. Appearance: She is ill-appearing. She is not toxic-appearing. HENT: Nose: Nose normal. Eyes: Conjunctiva/sclera: Conjunctivae normal. Cardiovascular: Rate and Rhythm: Normal rate. Pulmonary: Effort: Pulmonary effort is normal. Abdominal: Tenderness: There is no guarding. Skin: General: Skin is warm and dry. Coloration: Skin is pale. Findings: Bruising present. Comments: Intact incision Neurological: Mental Status: She is alert and oriented to person, place, and time. Psychiatric: Mood and Affect: Mood normal. Behavior: Behavior is cooperative. 24 hour intake/output: Intake/Output Summary (Last 24 hours) at 01/14/2025 0907 Last data filed at 01/14/2025 0600 Gross per 24 hour Intake 2062 ml Output 1305 ml Net 757 ml Diet: Adult diet Regular; Low Sodium (2 gm); 5 carb choices (75 gm/meal) Medications (as per EMR): HomeMeds: Current Outpatient Medications Medication Instructions cetirizine (ZYRTEC) 10 mg, Oral, Nightly latanoprost (Xalatan) 0.005 % ophthalmic solution 1 drop, Nightly Scheduled Meds:Scheduled Meds[1] Continuous Infusions:Continuous Meds[2] PRN Meds:PRN Meds[3] Diagnostic Workup: I reviewed pertinent Laboratory results, Radiographic results, and Other Clinical Notes at the time of today's encounter. Labs: No components found for: LABA1C No components found for: EAG Lab Results Component Value Date NA 138 01/14/2025 K 3.6 01/14/2025 CL 108 (H) 01/14/2025 CO2 20 (L) 01/14/2025 BUN 21 01/14/2025 CREATININE 1.19 (H) 01/14/2025 GLUCOSE 137 (H) 01/14/2025 CALCIUM 8.5 (L) 01/14/2025 Lab Results Component Value Date CHOL 174 01/12/2025 CHOL 221 (H) 01/09/2025 Lab Results Component Value Date TRIG 164 (H) 01/12/2025 TRIG 196 (H) 01/09/2025 Lab Results Component Value Date HDL 49 (L) 01/12/2025 HDL 51 (L) 01/09/2025 Lab Results Component Value Date LDLCALC 92 01/12/2025 LDLCALC 131 (H) 01/09/2025 No results found for: VLDL Lab Results Component Value Date CHOLHDLRATIO 4 01/12/2025 CHOLHDLRATIO 4 01/09/2025 No results found for: [id number] No results found for: TSH, D7OLBGD, L0GMSNO, THYROIDAB Radiology reportsas per the Radiologist Radiology: CT chest wo IV contrast Result Date: 01/09/2025 Patient Name: RITIKA SANTANA : 1945 [facility]#: [id number] Exam Date/Time: 01/09/2025 10:16 Procedure: CT CHEST WO IV CONTRAST Ordering Provider: GONZALEZ ANDREW Reason For Exam: assess aorta prior to open heart surgery CT CHEST WITHOUT CONTRAST: CLINICAL INDICATION: assess aorta prior to open heart surgery. Coronary artery disease. Dysrhythmia. Aortic root not not adequately visualized on echocardiography TECHNIQUE: Transaxial sequence through the chest from apices through the bases at 1 mm reconstruction interval. Coronal and sagittal reconstruction images reviewed. Dose reduction was employed with automated exposure control. COMPARISON: None. FINDINGS: Aorta: As visualized in sagittal and coronal reconstruction orientation, caliber of the aorta just above the sinuses of Valsalva is at the maximum in the range of up to 3.1 cms. The upper ascending aorta measures up to 3.0 cm and the descending aorta measures 2.3 cm. There is some peripheral atherosclerotic calcification. Lungs/airways: Minor apical pleural thickening. Minor atelectasis at the bases. No consolidation No parenchymal or pleural-based nodule or mass. Pleural spaces: No pleural fluid. Heart/remaining great vessels: Normal size cardiac chambers. Coronary artery and aorta atherosclerotic calcifications. Mediastinum/Rebecca: Hiatus hernia measures up to 8 cm. No mass or enlarged lymph nodes. Chest wall and lower neck: No abnormality. Upper abdomen: No abnormality throughout the visualized portions of liver. Visualized portions of the spleen are normal. The adrenals are unremarkable. Osseous structures: Degenerative change of the thoracic spine with accentuated kyphosis. There is concavity of the superior endplate at the T12 level. 1. Normal caliber aorta measuring up to 3.1 cm with some atherosclerotic calcium 2. Coronary artery calcification 3. Hiatus hernia 4. Concavity of the superior endplate at T12 of indeterminate age. Report Dictated on Electronically Signed By: Gilmar Simmons MD Electronically Signed Date/Time: 01/09/2025 4:04 PM EDT ECG 12 lead Sinus rhythm Nonspecific repol abnormality, diffuse leads No previous ECG available for comparison Electronically Signed On 01-09-2025 14:42:36 EDT by Tom Hoang Vascular US lower extremity vein mapping for bypass bilateral Result Date: 01/09/2025 Vessel diameters as noted in the table below. No evidence of superficial thrombosis in the right lower extremity. No evidence of superficial thrombosis in the left lower extremity. Vascular US carotid artery duplex bilateral Result Date: 01/09/2025 <50% stenosis in the right internal carotid artery. Mild and heterogeneous plaque (proximal) in the right internal carotid artery. <50% stenosis in the left internal carotid artery. Mild, focal and mixed density plaque (proximal) in the left internal carotid artery. Left ICA is tortuous. Normal antegrade flow involving the right vertebral artery. Normal antegrade flow involving the left vertebral artery. XR chest 1 view Result Date: 01/09/2025 [facility] Name[facility] 1945 [id number] Exam Date/Time: 01/09/2025 09:06 Procedure: XR CHEST 1 VIEW Ordering Provider: GONZALEZ ANDREW Reason For Exam: shortness of breath EXAMINATION: CHEST RADIOGRAPH (SINGLE VIEW AP OR PA) Clinical History: shortness of breath Comparison: None RESULT: See impression Lines, tubes, and devices: None. Lungs and pleura: Interstitial coarsening, likely chronic. Mild streaky bibasilar opacities, likely atelectasis or scarring. Calcified granuloma projecting over the peripheral right midlung. No consolidation. No pleural effusion or pneumothorax. Cardiomediastinal silhouette: Normal cardiomediastinal silhouette. Retrocardiac opacity consistent with model moderate hiatal hernia. Other: Degenerative changes of the spine. Report Dictated on Electronically Signed By: Damien Mtz MD Electronically Signed Date/Time: 01/09/2025 10:50 AM EDT History/Other: Past Medical History: Medical History[4] Past Surgical History: Surgical History[5] Allergy(ies): Allergies[6] Family History: Family History[7] Social History: Social History[8] Portions of the information within this encounter were entered using an electronic dictation system. Best attempts were made to edit/proofread the information prior to note completion. Despite the review of information, some errors may remain. If there are questions related to the information contained within the note please contact the signing physician directly. I spent 16 minutes with the pt which involved coordination of care, medical evaluation, review of records, and/or counseling of the pt regarding his/her condition/disease state/prognosis on the date of this note. [1] acetaminophen, 1,000 mg, Oral, q8h lidocaine, 5 mL, Mouth/Throat, Once And aluminum & magnesium hydroxide-simethicone, 20 mL, Oral, Once aspirin, 81 mg, Oral, Daily chlorhexidine, , Topical, Daily enoxaparin, 40 mg, SubCUTAneous, q24h insulin lispro, 0-6 Units, SubCUTAneous, TID WC latanoprost, 1 drop, Both Eyes, Nightly Lidocaine, 1 patch, Topical, Daily melatonin, 5 mg, Oral, Nightly mupirocin, , Nasal, BID pantoprazole, 40 mg, Oral, qAM AC polyethylene glycol (PEG) 3350, 17 g, Oral, Daily potassium chloride, 20 mEq, IntraVENous, q1h rosuvastatin, 40 mg, Oral, Daily senna-docusate sodium, 2 tablet, Oral, Nightly sodium chloride, 5-250 mL, IntraVENous, Once sodium chloride 0.9%, 5-40 mL, IntraCATHeter, q8h [2] lactated ringers, 250 mL, Last Rate: Stopped (01/13/25 0140) phenylephrine, 10-150 mcg/min, Last Rate: 15 mcg/min (01/14/25 3623) [3] PRN medications: albumin human, calcium carbonate, calcium gluconate, dextrose, dextrose, glucagon (rDNA), glucose, ipratropium-albuterol, lactated ringers, magnesium hydroxide, magnesium sulfate OR magnesium sulfate, morphine sulfate OR morphine sulfate, naloxone, ondansetron ODT OR ondansetron, oxyCODONE OR oxyCODONE, phenylephrine, potassium chloride OR potassium chloride OR potassium chloride, potassium chloride CR, sodium chloride, sodium chloride, sodium chloride, sodium chloride 0.9% [4] Past Medical History: Diagnosis Date Essential hypertension GERD (gastroesophageal reflux disease) Macular degeneration Paroxysmal atrial fibrillation (HCC) [5] Past Surgical History: Procedure Laterality Date BASAL CELL CARCINOMA EXCISION BREAST CYST EXCISION CATARACT EXTRACTION, BILATERAL [6] Allergies Allergen Reactions Ciprofloxacin Patient had cdiff with this antibiotic [7] Family History Problem Relation Name Age of Onset ALS Mother Hypertension Father Coronary artery disease Brother [8] Social History Tobacco Use Smoking status: Never Substance Use Topics Alcohol use: Never Drug use: Never Cosigned by Winter Balderrama MD at 01/14/2025 2:26 PM EDT Associated attestation - Winter Balderrama MD - 01/14/2025 2:26 PM EDT I independently performed a history and physical examination of the patient. I have reviewed the patient's chart including pertinent history, medications, labs, radiology, consult/progress notes, and other reports. I reviewed the resident/CONSTANCE's note, agree with the documented findings and plan of care (with modifications noted if any), and discussed the management plan. Pt was up in the recliner. Trying to eat but she was having some n/v. No SOB. BG stable. Has not required any SSI. Reviewed labs. Estimated Creatinine Clearance: 42 mL/min (by C-G formula based on SCr of 1.07 mg/dL). BP 122/69 Pulse 95 Temp 36.1 C (97 F) (Temporal) Resp (!) 32 Ht 5' 3 (1.6 m) Wt 165 lb 5.5 oz (75 kg) SpO2 95% BMI 29.29 kg/m awake, alert, O2 per NC, not in distress, RRR, chest incision intact, abdomen soft, non-tender, no edema, no focal deficits, normal mood and affect. Dx: Stress hyperglycemia CAD s/p CABG Anemia Plan: -A1c 5.8% - may not be accurate due to anemia -BG stable although has had poor PO intake -should be able to DC Humalog SS and BG checks later today if BG remain stable -will monitor Total time 20 minutes which include review of records, counseling, management, and coordination of care as documented in note. Images from the original note were not included. Cardiothoracic Surgery/[facility] Progress Note PATIENT NAME: Ritika Santana DATE: 01/14/25 HPI: 79-year-old female with past medical history of macular degeneration, GERD, paroxysmal A-fib, hypertension, presented to the ED at [facility] with complaints of worsening shortness of breath. Per patient she has always had shortness of breath but it has started to get worse recently. She also noted a dull ache radiating feeling sporadically at times that started to happen more frequently. She said these episodes initially started off lasting only a couple minutes but one of the last ones happened about 30 minutes. Cardiac enzymes were elevated in the ED and cardiology was consulted. Of note she does follow with cardiology as an outpatient for her proximal A-fib and she had called prior to her ED visit on 01/07. Patient mated with NSTEMI and cath was scheduled. Cardiac cath was completed 01/08/2025 which showed multivessel CAD involving left main She was transferred to [facility] for surgical evaluation. Surgery was discussed and she consented. She was taken to the operating room on 01/12/[address] Coreas Surgery/Procedure: 01/12/25: s/p CABGx4 (BLANCO to LAD, svg to PDA, svg to OM1, svg to diag) with Dr. Coreas Interval History: 01/14/25, POD# 02: Afebrile, NSR on tele, BP requiring low dose phenylephrine, on 3L NC. Multiple bouts of nausea overnight. This AM, nausea better, denies abdominal pain. Arterial line malfunctioning. Objective: CT output cc/24hrs: 1,125 UO cc/24hrs: 270 Last BM Date: 01/10/25 Vitals: BP: (!) 132/45, MAP (mmHg): 70, BP Method: Arterial line Heart Rate: 81 Resp: (!) 29 Temp: 36.1 C (97 F), Temp Source: Temporal BMI (Calculated): 28.95 BMP: Recent Labs 01/12/25 0345 01/12/25 0345 01/12/25 1154 01/12/25 1352 01/12/25 1822 01/13/25 0204 01/13/25221601/14/25 0003 NA 139 -- 145 146* < > 142 138 138 K 3.9 -- 3.5 3.4* < > 4.4 3.3* 3.3* CL 108* -- 117* 120* < > 113* 108* 108* CO2 21* -- 18* 17* < > 20* 20* 20* BUN 24* -- 21 19 < > 19 22 21 CREATININE 0.80 -- 0.84 0.75 < > 0.83 1.19* 1.19* CALCIUM 9.4 -- 9.1 7.4* < > 8.9 8.5* 8.5* MG -- < > 4.5* 3.0* -- 2.2 -- 2.0 PHOS 4.8* -- 3.4 -- -- -- -- -- < > = values in this interval not displayed. CBC: Recent Labs 01/13/25 02001/13/25221601/14/25 0003 WBC 8.6 8.4 8.4 HGB 8.4* 7.8* 7.9* HCT 25.4* 23.2* 24.3* PLT 126* 84* 86* MCV 88.8 88.9 89.7 RDW 15.2* 16.0* 16.0* INR: Recent Labs 01/12/25 1352 01/12/25182101/13/25 020 INR 1.3* 1.2* 1.2* Physical Exam Vitals reviewed. Constitutional: General: She is not in acute distress. Appearance: She is not ill-appearing or diaphoretic. Neck: Comments: Central line. Cardiovascular: Rate and Rhythm: Normal rate and regular rhythm. Pulses: Normal pulses. Heart sounds: No murmur heard. Pulmonary: Effort: Pulmonary effort is normal. Breath sounds: No wheezing, rhonchi or rales. Comments: Diminished bilaterally, R>L. On NC. Abdominal: General: There is no distension. Palpations: Abdomen is soft. Tenderness: There is no abdominal tenderness. Comments: Chest tubes. Genitourinary: Comments: Swift. Musculoskeletal: General: No swelling. Skin: General: Skin is warm and dry. Capillary Refill: Capillary refill takes less than 2 seconds. Findings: Bruising present. Comments: Surgical incisions well approximated, no redness, warmth or drainage noted. Neurological: General: No focal deficit present. Mental Status: She is alert and oriented to person, place, and time. Assessment: MVCAD s/p CABGx 4 HTN GERD Afib Macular degeneration Post operative Pulm Management: Normal Post-operative Course Acute blood loss anemia/consumptive coagulopathy Plan: Patient status: ICU Continue aspirin and statin. -No BB until off of pressor support. Wean phenylephrine as able, goal MAP>65. -Remove arterial line once off of phenylephrine. POCUS R pleural space for possible thoracentesis. -Consider IR thora. Lasix 20mg IV x1. Replete K this AM. Zofran for nausea. -Can consider additional agent if needed. Encourage PO intake with medications. Out of bed. Progressive mobility as able. Wean O2, goal SpO2>92%. Daily labs and CXR. GI prophy: PO protonix DVT prophy:TEDs, SCDs, and Lovenox SubQ Pulmonary hygiene: IS and Acapella Consults: Endocrinology. PT/OT: IPR (01/13/25). TCC/Discharge Planning: TBD. Central Line: [x]Yes [] No Arterial Line: [x]Yes [] No Swift: [x]Yes [] No Restraints: []Yes [x] No Patient discussed and plan of day developed from multidisciplinary rounds between Cardiothoracic Surgery (Cardiothoracic Surgeon, CONSTANCE) and Critical Care Attending Critical Care time spent 25 minutes. The time involved in the performance of this care was exclusive of separately billable procedures, teaching time and treating other patients. The time was spent personally by myself for the following activities: examination of the patient, ordering and/or performing treatment, reviewing the laboratory and radiographic studies, and if applicable, ventilator management and blood gas interpretation. Cardiac Core Medications: ASA, Statin, and No BB due to hypotension EF: 55% (01/11/25) Blood Conservation: Transfused Court Abstractor: [facility] Cosigned by Manolo Huff MD at 01/14/2025 11:26 AM EDT Associated attestation - Manolo Huff MD - 01/14/2025 11:26 AM EDT I have personally performed a face to face diagnostic evaluation on this patient today on 01/14/25. Labs, imaging studies, and electronic medical record notes on [facility] have been reviewed by me. This note documented and discussed by the []wildlife conservation officer []Fellow [x] CONSTANCE reflects my history, exam and medical decision making. I have reviewed and agree with the care plan. Changes were made in the orders as necessary. ROS documentation was reviewed and negative unless otherwise stated in the HPI. My history, exam, assessment and plan are as follows: Some elements copied from my notes, which have been updated where appropriate. All reflect current medical decision making from 01/14/25. Physical Exam listed was completed in entirely on 01/14/25 and is unchanged except where noted. Critical care time spent excluding separately billable procedures is 40 minutes. Awake,in chair Heart RRR Lungs +crackles right MVCAD 6/2 s/p CABG x 4, Left atrial clip Post op pulm management NAGMA with hyperchloremia Anemia, thrombocytopenia expected post op Wean O2 as tolerated Weaning phenylephrine as tolerated U/s right thora Lasix diuresis as tolerated Transfuse prn Nutrition Assessment Type and Reason for Visit: Consult (Diet Education: s/p open heart) Nutrition Recommendations/Plan: Continue Regular; Low Na; 5 Carb Choices (75 gm/meal) diet. Per MNT protocol, will initiate Ensure Plus BID. Please record % meal and oral nutrition supplement consumed in flow sheet for most accurate nutrient intake assessment. Unable to provide diet education at this time. Will provide at reassessment. Will continue to monitor weight changes, labs, and overall nutrition status. RD will continue to follow up weekly. Malnutrition Assessment: Malnutrition Status: Insufficient data Nutrition Assessment: Patient with PMHx of macular degeneration, GERD, paroxysmal A-fib, hypertension, initially presented to the ED at [facility] with complaints of worsening shortness of breath. Per patient she has always had shortness of breath but it has started to get worse recently. She also noted a dull ache radiating feeling sporadically at times that started to happen more frequently. Reports episodes initially started off lasting only a couple minutes but one of the last ones happened about 30 minutes. Cardiac enzymes were elevated in the ED and cardiology was consulted. Of note patient does follow with cardiology as an outpatient for her proximal A-fib and she had called prior to her ED visit on 01/07. Patient mated with NSTEMI and cath was scheduled. Cardiac cath was completed 01/08/2025 which showed multivessel CAD involving left main. Patient was transferred to [facility] for surgical evaluation. s/p CABGx4, LAAL, LEVH, SULLY 01/12/25. Patient extubated 01/13; episode of nausea overnight. Endo following for stress hyperglycemia. Patient currently ordered a Low Na; 5 CHO diet. Patient unavailable upon [address] attempts. Per chart review, patient with n/v upon movement. No recent PO intake recorded in flowsheet. Estimated Daily Nutrient Needs: Energy Requirements Based On: Kcal/kg Weight Used for Energy Requirements: [place] Weight for Energy Calculation (kg): 52 kg Total Energy Requirements (kcals/day): 7250-1922 kcal/day (25-30) Weight Used for Protein Requirements: [place] Weight in Kg Used for Protein Requirements: 52 kg Estimated Total Protein (g/day): 62-73 g/day (1.2-1.4) Estimated Daily Total Fluid (ml/day): Per MD Nutrition Related Findings: Geovany: 20. I&O: -20. Surgical incision x3. Nausea/vomiting with movement. Active bowel sounds. Labs: glucose 135, A1c 5.8. Meds: Ancef, Lovenox, Protonix, Miralax, Senokot, Insulin, Zofran, phenylephrine Wound Type: Surgical Incision Current Nutrition Therapies: Adult diet Regular; Low Sodium (2 gm); 5 carb choices (75 gm/meal) Current Oral Intake Average Meal Intake: Unable to assess Average Supplements Intake: None Ordered Anthropometric Measures: Height: 160 cm (5' 3) Current Body Weight: 73.9 kg (163 lb) (01/13/25) Weight Source: Not Specified Admission Body Weight: 68 kg (150 lb) (01/12/25) Usual Body Weight: (Per Epic -> 01/09/25 150# (ss)) [place] Body Weight (lbs) (Calculated): 115 lbs [place] Body Weight (Kg) (Calculated): 52 kg % [place] Body Weight (Calculated): 141.7 % BMI (kg/m2) (Calculated): 28.9 Weight Adjustment For: No Adjustment BMI Categories: Overweight (BMI 25.0-29.9) Nutrition Diagnosis: Predicted inadequate energy intake related to altered GI function as evidenced by nausea, vomiting Nutrition Interventions: Nutrition Education/Counseling: Education needed Coordination of Nutrition Care: Continue to monitor while inpatient Goals: Goals: Meet at least 75% of estimated needs, by next RD assessment Nutrition Monitoring and Evaluation: Behavioral-Environmental Outcomes: None Identified Food/Nutrient Intake Outcomes: Food and Nutrient Intake, Supplement Intake Physical Signs/Symptoms Outcomes: Biochemical Data, Chewing or Swallowing, GI Status, Nausea or Vomiting, Skin, Weight, Nutrition Focused Physical Findings, Hemodynamic Status, Fluid Status or Edema Discharge Planning: Too soon to determine Anna Montez RD Contact: *[phone] Images from the original note were not included. PHYSICAL THERAPY [facility] Initial Evaluation Name/MRN: Ritika Santana ([id number]) Evaluation Date: 01/13/2025 Date of : 1945 Admission Date: 01/09/2025 1:06 AM Age: 79 y.o. Room/Bed: T1-103/T1-103 A Discharge Recommendation: IP Rehab Other: TBD Assessment IMPRESSION: Patient is a 79 yo admitted due to CAD s/p CABG x4 and L atrial appendage clip on 01/12/25. Patient is limited by sternal pain, generalized weakness, and impaired standing balance. Patient required min A for sit <> stand transfers. Patient ambulated 25 feet using Nezzie with min A. Patient will benefit from acute PT services to improve balance and independence with mobility. At this time, would recommend IP Rehab; however, may may progress to home with 24/7 assist/supervision. Admitting Diagnosis: CAD s/p CABG x4 and L atrial appendage clip on 01/12/25 Prognosis: good Performance Deficits /Impairments: Increased Pain, Decreased Functional Mobility, Decreased ADL status, Decreased Strength, Decreased Endurance, Decreased Balance, Decreased ROM, and Decreased High Level IADLs Decision Making: Medium Complexity Subjective RN cleared patient for PT eval. Patient up in recliner, pleasant and agreeable to therapy. RN ok to remove chest tube suction for ambulation. Pain: 0-10 pain scale: 4/10 Location: sternum (with mobility) Past Medical History: Medical History[1] Past Surgical History: Surgical History[2] Admission Diagnosis: Patient Active Problem List Diagnosis Date Noted CAD, multiple vessel 01/09/2025 NSTEMI (non-ST elevated myocardial infarction) ([facility]) 01/09/2025 GERD (gastroesophageal reflux disease) 01/09/2025 A-fib (CMS/HCC) ([facility]) 01/09/2025 HTN (hypertension) 01/09/2025 Medical Precautions: No active isolations Proper PPE donned/doffed in accordance with facility standards. Fall Risk: [place] Fall Risk Score: 50 (High Risk) Precautions/Restrictions: Sternal Precautions: No lifting greater than 10 lbs. Ok for modified UE precautions using Keep Your Move in the Tube technique Lines/Drains/Airways: tele, continuous pulse ox, temporary pacer, chest tube to suction, swift, 4L O2 NC, art line LUE, CVC R IJ Skin care precautions Family/Caregiver Present: , daughter Overall Cognitive Status: WFL Overall Orientation Status: Oriented x4 Social/Functional History Patient admitted from home. Lives With: Spouse (can provide 24/7 assist/supervision) Type of Home: single family home Home Layout: Single Level Home Home Access: Stairs to Enter with Rails (# of stairs: 2-3) Bathroom Shower/Tub: Tub/Shower Combo Toilet: Standard Home Equipment: none Homemaking Responsibilities: Independent Receives Help From: Spouse Active Tanbark Peeler: Prior Level of Function Prior Level of ADL Function: Independent Prior Level of Mobility: Independent; Device: None Prior Level of Transfers: Independent Objective Transfers/Mobility Sit to stand: Min Assist Stand to sit: Min Assist From recliner, required 2 attempts to achieve standing, edu on sternal precautions Device(s) used: garbs Ambulation Assistive device(s) used: XDN/[employer] Assist level: Min Assist Distance (ft): 25 Quality of gait: slow latanya, instability through all phases, required increased time to perform, cues for upright posture, O2 sats 99-100% on 4L O2 Balance During Session: Posture: fair Standing - Static: at [facility], CGA Other exercises Other exercises?: Yes Other exercises 1: IS x5 reps, 250-500ml, cues given for improved technique, edu on frequency Outcome Measures AM-PAC How much HELP from another person do you currently need Turning from your back to your side while in a flat bed without using bedrails?: A Little Moving from lying on your back to sitting on the side of a flat bed without using bedrails?: A Lot Moving to and from a bed to a chair (including a wheelchair)?: A Little Standing up from a chair using your arms (wheelchair or bedside chair)?: A Little Walking in a hospital room?: A Little Stair climbing assessed?: No AM-PAC Inpatient Mobility Raw Score (No Stairs) : 14 [facility] Score: Walked 25 ft or more (i.e. walked outside of room) Plan Pt would benefit from skilled acute PT services to address Strengthening, ROM, Gait Training, Balance Training, Self-Care/ADL Training, Functional Mobility Training, Endurance Training, Safety Education and Training, Pain Management, Stair Training, Equipment Evaluation/Education, Neuromuscular Re-Education Training, and Patient/Caregiver Training. Frequency: 5x/week for 4 weeks Barriers: Pain, Impaired balance, Lower extremity weakness, Decreased endurance, New weightbearing/ROM restrictions, Stairs at home, and Skin Care Safety/Education Safety Safety Devices in place: All fall risk precautions in place, call light within reach, left in chair, nurse notified, and no alarms engaged upon entry Restraints: No Education Education Given To: patient and spouse and daughter Education Provided: PT Role, PT Goals, Gait Training, Plan of Care, Precautions, Transfer Training, Benefits of Increasing Activity, and IS use Education Method: Verbal Barriers to Learning: None Education Outcome: Verbalized Understanding Goals Patient Stated Goal: To get better Encounter Problems Encounter Problems (Active) Cardiac Patient will perform bed mobility with supervision in order to improve independence and prepare for out of bed mobility. Start: 01/13/25 Expected End: 02/10/25 Patient will complete sit to stand transfer with supervision in order to improve safety and prepare for out of bed mobility. Start: 01/13/25 Expected End: 02/10/25 Patient will ambulate 350 feet or ambulate 5 minutes with supervision with RPE of 14 or lower. Start: 01/13/25 Expected End: 02/10/25 Patient will ascend and descend 3 stairs with supervision and rail for balance only. Start: 01/13/25 Expected End: 02/10/25 Patient will be independent with P&C exercises. Start: 01/13/25 Expected End: 02/10/25 Patient will be independent with managing secretions and home walking program. Start: 01/13/25 Expected End: 02/10/25 Therapy Time Individual Co-Treatment Co-Evaluation Time In 1140 Time Out 1205 Minutes 25 Timed Code Treatment Minutes: 8 Minutes (FA) Samantha Arce PT Patient's Physical Therapy Plan of Care supervision is transferred to a [facility] Physical Therapist. Goals and/or treatment plan was established in collaboration with patient/family/other representatives. [1] Past Medical History: Diagnosis Date Essential hypertension GERD (gastroesophageal reflux disease) Macular degeneration Paroxysmal atrial fibrillation (HCC) [2] Past Surgical History: Procedure Laterality Date BASAL CELL CARCINOMA EXCISION BREAST CYST EXCISION CATARACT EXTRACTION, BILATERAL Department of Internal Medicine Division of Endocrinology, Diabetes, & Metabolism Endocrinology Note Patient Name: Ritika Santana : 1945 AGE: 79 y.o. Room/Bed: T1103/T1103 A Admission Date: 01/09/2025 Visit Date: 01/13/2025 Reason for Endocrine Consult: post heart Provider/Team Requesting Consult: cts PCP: Becky Marinelli Forging Press Operator: No ASSESSMENT: Stress hyperglycemia Prediabetes CABGx4 CAD/HTN Afib PLAN: Give lantus 8 units x1 now then stop insulin gtt one hour Start humalog low ssi ICU goal <180 GMF goal <150 POCT BG ACHS Hypoglycemia management per protocol Carb controlled diet when tolerates ANTICIPATED ENDOCRINE HOME GOING RECOMMENDATIONS: Optimized for Discharge from Endocrine standpoint: No Home Going Endocrine Rx Recommendations-- Likely none Outpt Follow Up-- PCP SUBJECTIVE/HPI: CHIEF COMPLAINT: No chief complaint on file. S/P CABGx4 No apparent hx of diabetes per chart review Bgl below Stable Insulin gtt 1 hr On rainer pressors Awake alert VSS 02 nc Up in chair She denies hx of dm- did discuss prediabetes Had water so far No food as of yet Spoke with nursing and family in room Type of DM: N/A Onset of DM: N/A Home DM Medication Regimen: N/A DM control (last A1c/glucose data): Lab Results Component Value Date HGBA1C 5.8 (H) 01/12/2025 Glucose Date/Time Value Ref Range Status 01/13/2025 08:56 AM 122 (H) 70 - 100 mg/dL Final 01/13/2025 07:59 AM 129 (H) 70 - 100 mg/dL Final 01/13/2025 07:09 AM 135 (H) 70 - 100 mg/dL Final 01/13/2025 06:57 AM 142 (H) 70 - 100 mg/dL Final 01/13/2025 06:10 AM 152 (H) 70 - 100 mg/dL Final 01/13/2025 04:55 AM 139 (H) 70 - 100 mg/dL Final Review of Systems ROS negative except for those mentioned in HPI. OBJECTIVE: Vitals: 01/13/25 0630 01/13/25 0645 01/13/25 0700 01/13/25 0754 BP: BP Location: Patient Position: Pulse: 80 73 79 Resp: 21 16 19 Temp: 38 C (100.4 F) 37.9 C (100.2 F) 37.9 C (100.2 F) TempSrc: SpO2: 99% 100% 100% Weight: Height: 5' 3 (1.6 m) Physical Exam Vitals and nursing note reviewed. Constitutional: General: She is awake. She is not in acute distress. Appearance: She is ill-appearing. She is not toxic-appearing. HENT: Nose: Nose normal. Eyes: Conjunctiva/sclera: Conjunctivae normal. Cardiovascular: Rate and Rhythm: Normal rate. Pulmonary: Effort: Pulmonary effort is normal. Abdominal: Tenderness: There is no guarding. Skin: General: Skin is warm and dry. Coloration: Skin is pale. Findings: Bruising present. Comments: Intact incision Neurological: Mental Status: She is alert and oriented to person, place, and time. Psychiatric: Mood and Affect: Mood normal. Behavior: Behavior is cooperative. 24 hour intake/output: Intake/Output Summary (Last 24 hours) at 01/13/2025 0901 Last data filed at 01/13/2025 0800 Gross per 24 hour Intake 7913.13 ml Output 3140 ml Net 4773.13 ml Diet: Adult diet Regular; Low Sodium (2 gm); 5 carb choices (75 gm/meal) Medications (as per EMR): HomeMeds: Current Outpatient Medications Medication Instructions cetirizine (ZYRTEC) 10 mg, Oral, Nightly latanoprost (Xalatan) 0.005 % ophthalmic solution 1 drop, Nightly Scheduled Meds:Scheduled Meds[1] Continuous Infusions:Continuous Meds[2] PRN Meds:PRN Meds[3] Diagnostic Workup: I reviewed pertinent Laboratory results, Radiographic results, and Other Clinical Notes at the time of today's encounter. Labs: No components found for: LABA1C No components found for: EAG Lab Results Component Value Date NA 142 01/13/2025 K 4.4 01/13/2025 CL 113 (H) 01/13/2025 CO2 20 (L) 01/13/2025 BUN 19 01/13/2025 CREATININE 0.83 01/13/2025 GLUCOSE 155 (H) 01/13/2025 CALCIUM 8.9 01/13/2025 Lab Results Component Value Date CHOL 174 01/12/2025 CHOL 221 (H) 01/09/2025 Lab Results Component Value Date TRIG 164 (H) 01/12/2025 TRIG 196 (H) 01/09/2025 Lab Results Component Value Date HDL 49 (L) 01/12/2025 HDL 51 (L) 01/09/2025 Lab Results Component Value Date LDLCALC 92 01/12/2025 LDLCALC 131 (H) 01/09/2025 No results found for: VLDL Lab Results Component Value Date CHOLHDLRATIO 4 01/12/2025 CHOLHDLRATIO 4 01/09/2025 No results found for: [id number] No results found for: TSH, Z2TSRAM, Q2IWXSU, THYROIDAB Radiology reportsas per the Radiologist Radiology: CT chest wo IV contrast Result Date: 01/09/2025 Patient Name: RITIKA SANTANA : 1945 [facility]#: [id number] Exam Date/Time: 01/09/2025 10:16 Procedure: CT CHEST WO IV CONTRAST Ordering Provider: GONZALEZ ANDREW Reason For Exam: assess aorta prior to open heart surgery CT CHEST WITHOUT CONTRAST: CLINICAL INDICATION: assess aorta prior to open heart surgery. Coronary artery disease. Dysrhythmia. Aortic root not not adequately visualized on echocardiography TECHNIQUE: Transaxial sequence through the chest from apices through the bases at 1 mm reconstruction interval. Coronal and sagittal reconstruction images reviewed. Dose reduction was employed with automated exposure control. COMPARISON: None. FINDINGS: Aorta: As visualized in sagittal and coronal reconstruction orientation, caliber of the aorta just above the sinuses of Valsalva is at the maximum in the range of up to 3.1 cms. The upper ascending aorta measures up to 3.0 cm and the descending aorta measures 2.3 cm. There is some peripheral atherosclerotic calcification. Lungs/airways: Minor apical pleural thickening. Minor atelectasis at the bases. No consolidation No parenchymal or pleural-based nodule or mass. Pleural spaces: No pleural fluid. Heart/remaining great vessels: Normal size cardiac chambers. Coronary artery and aorta atherosclerotic calcifications. Mediastinum/Rebecca: Hiatus hernia measures up to 8 cm. No mass or enlarged lymph nodes. Chest wall and lower neck: No abnormality. Upper abdomen: No abnormality throughout the visualized portions of liver. Visualized portions of the spleen are normal. The adrenals are unremarkable. Osseous structures: Degenerative change of the thoracic spine with accentuated kyphosis. There is concavity of the superior endplate at the T12 level. 1. Normal caliber aorta measuring up to 3.1 cm with some atherosclerotic calcium 2. Coronary artery calcification 3. Hiatus hernia 4. Concavity of the superior endplate at T12 of indeterminate age. Report Dictated on Electronically Signed By: Gilmar Simmons MD Electronically Signed Date/Time: 01/09/2025 4:04 PM EDT ECG 12 lead Sinus rhythm Nonspecific repol abnormality, diffuse leads No previous ECG available for comparison Electronically Signed On 01-09-2025 14:42:36 EDT by Tom Hoang Vascular US lower extremity vein mapping for bypass bilateral Result Date: 01/09/2025 Vessel diameters as noted in the table below. No evidence of superficial thrombosis in the right lower extremity. No evidence of superficial thrombosis in the left lower extremity. Vascular US carotid artery duplex bilateral Result Date: 01/09/2025 <50% stenosis in the right internal carotid artery. Mild and heterogeneous plaque (proximal) in the right internal carotid artery. <50% stenosis in the left internal carotid artery. Mild, focal and mixed density plaque (proximal) in the left internal carotid artery. Left ICA is tortuous. Normal antegrade flow involving the right vertebral artery. Normal antegrade flow involving the left vertebral artery. XR chest 1 view Result Date: 01/09/2025 [facility] Name[facility] 1945 [id number] Exam Date/Time: 01/09/2025 09:06 Procedure: XR CHEST 1 VIEW Ordering Provider: GONZALEZ ANDREW Reason For Exam: shortness of breath EXAMINATION: CHEST RADIOGRAPH (SINGLE VIEW AP OR PA) Clinical History: shortness of breath Comparison: None RESULT: See impression Lines, tubes, and devices: None. Lungs and pleura: Interstitial coarsening, likely chronic. Mild streaky bibasilar opacities, likely atelectasis or scarring. Calcified granuloma projecting over the peripheral right midlung. No consolidation. No pleural effusion or pneumothorax. Cardiomediastinal silhouette: Normal cardiomediastinal silhouette. Retrocardiac opacity consistent with model moderate hiatal hernia. Other: Degenerative changes of the spine. Report Dictated on Electronically Signed By: Damien Mtz MD Electronically Signed Date/Time: 01/09/2025 10:50 AM EDT History/Other: Past Medical History: Medical History[4] Past Surgical History: Surgical History[5] Allergy(ies): Allergies[6] Family History: Family History[7] Social History: Social History[8] Portions of the information within this encounter were entered using an electronic dictation system. Best attempts were made to edit/proofread the information prior to note completion. Despite the review of information, some errors may remain. If there are questions related to the information contained within the note please contact the signing physician directly. I spent 18 minutes with the pt which involved coordination of care, medical evaluation, review of records, and/or counseling of the pt regarding his/her condition/disease state/prognosis on the date of this note. [1] acetaminophen, 1,000 mg, Oral, q8h aspirin, 81 mg, Oral, Daily ceFAZolin, 2,000 mg, IntraVENous, q8h chlorhexidine, , Topical, Daily enoxaparin, 40 mg, SubCUTAneous, q24h ketorolac, 15 mg, IntraVENous, Once latanoprost, 1 drop, Both Eyes, Nightly Lidocaine, 1 patch, Topical, Daily mupirocin, , Nasal, BID pantoprazole, 40 mg, Oral, qAM AC polyethylene glycol (PEG) 3350, 17 g, Oral, Daily rosuvastatin, 40 mg, Oral, Daily senna-docusate sodium, 2 tablet, Oral, Nightly sodium chloride, 5-250 mL, IntraVENous, Once sodium chloride 0.9%, 5-40 mL, IntraCATHeter, q8h [2] EPINEPHrine, 0.01-0.2 mcg/kg/min, Last Rate: Stopped (01/13/25 0105) insulin regular, 0.5-50 Units/hr, Last Rate: 1 Units/hr (01/13/25 0900) lactated ringers, 250 mL, Last Rate: Stopped (01/13/25 0140) nitroglycerin, 5-200 mcg/min phenylephrine, 10-150 mcg/min, Last Rate: 100 mcg/min (01/13/25 0901) sodium chloride, 20 mL/hr, Last Rate: 20 mL/hr (01/12/25 1310) [3] PRN medications: albumin human, calcium gluconate, dextrose, dextrose, EPINEPHrine, glucagon (rDNA), glucose, ipratropium-albuterol, lactated ringers, magnesium hydroxide, magnesium sulfate OR magnesium sulfate, morphine sulfate OR morphine sulfate, naloxone, nitroglycerin, nitroglycerin, ondansetron ODT OR ondansetron, oxyCODONE OR oxyCODONE, phenylephrine, potassium chloride OR potassium chloride OR potassium chloride, potassium chloride CR, sodium chloride, sodium chloride, sodium chloride, sodium chloride 0.9% [4] Past Medical History: Diagnosis Date Essential hypertension GERD (gastroesophageal reflux disease) Macular degeneration Paroxysmal atrial fibrillation (HCC) [5] Past Surgical History: Procedure Laterality Date BASAL CELL CARCINOMA EXCISION BREAST CYST EXCISION CATARACT EXTRACTION, BILATERAL [6] Allergies Allergen Reactions Ciprofloxacin Patient had cdiff with this antibiotic [7] Family History Problem Relation Name Age of Onset ALS Mother Hypertension Father Coronary artery disease Brother [8] Social History Tobacco Use Smoking status: Never Substance Use Topics Alcohol use: Never Drug use: Never Cosigned by Winter Balderrama MD at 01/13/2025 10:09 PM EDT Associated attestation - Winter Balderrama MD - 01/13/2025 10:09 PM EDT I independently performed a history and physical examination of the patient. I have reviewed the patient's chart including pertinent history, medications, labs, radiology, consult/progress notes, and other reports. I reviewed the resident/CONSTANCE's note, agree with the documented findings and plan of care (with modifications noted if any), and discussed the management plan. Pt was up in the recliner. Family present. No CP or SOB. BG stable. Pt on insulin drip post op, currently at 1 unit/hr. She has not been eating. Poor appetite. Only drinking water and Miralax. BP 122/59 Pulse 84 Temp 37.2 C (99 F) (Temporal) Resp (!) 26 Ht 5' 3 (1.6 m) Wt 163 lb 5.8 oz (74.1 kg) SpO2 96% BMI 28.94 kg/m awake, alert, not in distress, RRR, chest incision intact, +chest tube, abdomen soft, non-tender, no edema, no focal deficits, normal mood and affect. Dx: Stress hyperglycemia CAD s/p CABG Plan: -A1c 5.8% - may not be accurate due to anemia -transition to subcutaneous insulin with Humalog SS -continue blood glucose monitoring -discussed postop hyperglycemia management and goals of therapy -encouraged PO -will follow Total time 25 minutes which include review of records, counseling, management, and coordination of care as documented in note. Images from the original note were not included. Cardiothoracic Surgery/[facility] Progress Note PATIENT NAME: Ritika Santana DATE: 01/13/25 HPI: 79-year-old female with past medical history of macular degeneration, GERD, paroxysmal A-fib, hypertension, presented to the ED at [facility] with complaints of worsening shortness of breath. Per patient she has always had shortness of breath but it has started to get worse recently. She also noted a dull ache radiating feeling sporadically at times that started to happen more frequently. She said these episodes initially started off lasting only a couple minutes but one of the last ones happened about 30 minutes. Cardiac enzymes were elevated in the ED and cardiology was consulted. Of note she does follow with cardiology as an outpatient for her proximal A-fib and she had called prior to her ED visit on 01/07. Patient mated with NSTEMI and cath was scheduled. Cardiac cath was completed 01/08/2025 which showed multivessel CAD involving left main She was transferred to [facility] for surgical evaluation. Surgery was discussed and she consented. She was taken to the operating room on 01/12/[address] Coreas Surgery/Procedure: 01/12/25: s/p CABGx4 (BLANCO to LAD, svg to PDA, svg to OM1, svg to diag) with Dr. Coreas Interval History: 01/13/25, POD# 0: Extubated by [facility], increase bleeding from CTs overnight -->transfused; alert following commands. On Rainer - 125mcg/min. Daughter in law at bedside. Feels good did have episode of nausea overnight. Fluid challenge given by nurse overnight - CVP ~13 with good UO. No other acute issues noted. Review of Systems Constitutional: Positive for fatigue. Negative for diaphoresis and fever. Respiratory: Negative for cough, shortness of breath and wheezing. Cardiovascular: Negative for chest pain, palpitations and leg swelling. Gastrointestinal: Positive for nausea. Negative for abdominal distention, constipation and diarrhea. Skin: Negative for color change, pallor and rash. Objective: CT output cc/24hrs:1205 UO cc/24hrs:1335 Last BM Date: 01/10/25 Vitals: BP: 107/57, MAP (mmHg): 69, BP Method: Arterial line Heart Rate: 80 Resp: 17 Temp: 36.2 C (97.1 F), Temp Source: Temporal BMI (Calculated): 26.58 A-line: Arterial Line BP 1: 108/40 Invasive Hemodynamic Monitoring CVP (mmHg): 13 mmHg Pacer Wires: V wires CXR: BMP: Recent Labs 01/12/25 0345 01/12/25 1154 01/12/25 1352 01/12/25 1822 01/13/25 0204 NA 139 145 146* 147* 142 K 3.9 3.5 3.4* 4.3 4.4 CL 108* 117* 120* 119* 113* CO2 21* 18* 17* 18* 20* BUN 24* 21 19 18 19 CREATININE 0.80 0.84 0.75 0.80 0.83 CALCIUM 9.4 9.1 7.4* 7.2* 8.9 MG -- 4.5* 3.0* -- 2.2 PHOS 4.8* 3.4 -- -- -- CBC: Recent Labs 01/12/25 1352 01/12/25 1555 01/12/25 1822 01/12/25 2207 01/13/25 0004 01/13/25 0204 WBC 10.3 -- 13.3* -- -- 8.6 HGB 8.9 8.2* < > 7.7* 9.7* 7.6 8.4* HCT 26.1* -- 24.0* 29.2* -- 25.4* PLT 90* -- 169 -- -- 126* MCV 92.2 -- 92.3 -- -- 88.8 RDW 14.2 -- 14.2 -- -- 15.2* < > = values in this interval not displayed. INR: Recent Labs 01/12/25 1352 01/12/25 1822 01/13/25 0204 INR 1.3* 1.2* 1.2* Physical Exam Cardiovascular: Rate and Rhythm: Normal rate and regular rhythm. Heart sounds: Normal heart sounds. No murmur heard. No friction rub. Pulmonary: Effort: Pulmonary effort is normal. Genitourinary: Comments: Swift catheter to straight drain Skin: General: Skin is warm and dry. Capillary Refill: Capillary refill takes less than 2 seconds. Findings: Bruising and ecchymosis present. Comments: Surgical Incisions: well approximate; clean dry with no drainage noted. Surrounding skin no redness, warmth, or signs of infection noted. Neurological: Mental Status: She is alert. Psychiatric: Behavior: Behavior is cooperative. Assessment: MVCAD s/p CABGx 4 HTN GERD Afib Macular degeneration Post operative Pulm Management: Normal Post-operative Course Acute blood loss anemia/consumptive coagulopathy Plan: Patient Status: ICU Medications: ASA statin Rainer for hypotension - hold BB MAP goal >65 -hold BB for now -hold diuresis today Continue home latanoprost X1 dose of toradol for pain; watch use of morphine -->nausea GI prophy: PO protonix DVT prophy: Lovenox SubQ Bowel: senna/miralax Interventions: Advance diet Wean O2 Pulmonary hygiene: IS and Linwood Patten Lines/Drains: -CVC: 01/12 -Arterial line: 01/12 - leave while on rainer -Swift: 01/12 -Chest tubes: 01/12 - change to waterseal Restraints: []Yes [x] No Consults: Endocrinology following- insulin management D/c recs: TBD Therapies: PT: will need evaled OT: will need evaled Disposition: TBD Critical Care time spent 18 minutes. The time involved in the performance of this care was exclusive of separately billable procedures, teaching time and treating other patients. The time was spent personally by myself for the following activities: examination of the patient, ordering and/or performing treatment, reviewing the laboratory and radiographic studies, and if applicable, ventilator management and blood gas interpretation. Patient discussed and plan of day developed from multidisciplinary rounds between Cardiothoracic Surgery (Cardiothoracic Surgeon, CONSTANCE) and Critical Care Attending Cardiac Core Medications: ASA and Statin EF: 55% 01/11/25 Blood Conservation: Transfused postoperatively Court Abstractor: Dr. Ruth ([place]) Cosigned by Manolo Huff MD at 01/13/2025 10:00 AM EDT Associated attestation - Manolo Huff MD - 01/13/2025 10:00 AM EDT I have personally performed a face to face diagnostic evaluation on this patient today on 01/13/25. Labs, imaging studies, and electronic medical record notes on [facility] have been reviewed by me. This note documented and discussed by the []wildlife conservation officer []Fellow [x] CONSTANCE reflects my history, exam and medical decision making. I have reviewed and agree with the care plan. Changes were made in the orders as necessary. ROS documentation was reviewed and negative unless otherwise stated in the HPI. My history, exam, assessment and plan are as follows: Some elements copied from my notes, which have been updated where appropriate. All reflect current medical decision making from 01/13/25. Physical Exam listed was completed in entirely on 01/13/25 and is unchanged except where noted. Critical care time spent excluding separately billable procedures is 40 minutes. Awake, A&Ox3 Heart RRR Lungs with symmetric air exchange, no wheezes, unlabored Abd soft MVCAD 6/2 s/p CABG x 4, Left atrial clip Hypotension post op Post op pulm management NAGMA with hyperchloremia Anemia, thrombocytopenia expected post op Wean O2 as tolerated Weaning phenylephrine as tolerated ASA, statin Transfuse prn Images from the original note were not included. Critical Care Reassessment Note See HPI / Daily Progress note for complete plan of care Briefly, Ritika Santana is being treated in the ICU for MVCAD, afib 6/2 s/p CABG x 4 and LAAL Pt extubated, denies shortness of breath. Pt with increased chest tube output 55mL-->900mL post extubation within 1 hour I have assessed the patient at the bedside for increased output via chest tube. Brief Focused Exam: Awake, alert Heart RRR Lungs with rhonchi, resp unlabored Abd soft Assessment/Updated Plan of care pRBC, FFP, cryoprecipitate, platelets ordered. Pt with increased pressor requirement. Dr Coreas notified and has come to bedside. Plan to repeat labs and monitor chest tube output. Additional Critical Care time at least 40 minutes [facility] Respiratory Care Department Progress Note Spontaneous Awakening Trial Wean Screen SpO2>/=88%: Yes (01/12/251544) FiO2</=50%: Yes (01/12/251544) PEEP </=8cmH2O: Yes (01/12/251544) HR <140 BPM: Yes (01/12/251544) RR </= 35 breaths/min: Yes (01/12/251544) MAP >/= 65mmHg: Yes (01/12/251544) Arterial pH >7.30: Yes (01/12/251544) Safety Screen Spontaneous Breathing Trial (SBT - RT) : Proceed with SBT - No exclusion criteria met (01/12/251544) Spontaneous Breathing Trial Weaning Start Time: 1545 (01/12/251617) Weaning Tidal Volume: 331 mL (01/12/251617) Weaning Respiratory Rate: 18 (01/12/251617) Spontaneous Minute Volume (MV): 4.72 (01/12/251617) Total RSBI: 54 (01/12/251617) Weaning Tolerance: Good (01/12/251617) Weaning Stop Time: 1618 (01/12/251617) Weaning Duration (min): 33 (01/12/251617) Spontaneous Breathing Trial (SBT - RT) Outcome: SBT Passed (01/12/251617) Vent Settings Vent Mode: Spontaneous (01/12/251617) Mandatory Type: VC+ (01/12/25 130) Resp Rate (Set): 12 (01/12/251304) Vt (Set, mL): 350 mL (01/12/251304) FiO2 (%): 40 % (01/12/251617) PEEP/CPAP (cm H2O): 8 cm H20 (01/12/251617) Inspiratory Time (sec): 0.9 sec (01/12/251304) Vitals Heart Rate: 72 (01/12/251617) Resp: 14 (01/12/251617) SpO2: 100 % (01/12/251617) Suctioning/Secretions ABG results Recent Labs 01/12/25 1154 01/12/25 1352 01/12/25 1555 PHART 7.357 7.256* 7.333* ENR3DMW 35.1 44.1 39.5 PO2ART 320.7* 164.0* 122.0* [id number] 19.3* 19.2* 20.5* [id number] Ventilator Ventilator Ventilator Does this patient meet criteria for termination of mechanical ventilation Yes- Notified physician below Name of physician notified via secure chat or in person : Dr. Huff (NA if patient did not meet criteria) Comments: Thank you for involving Respiratory in the care of this patient, Images from the original note were not included. Cardiothoracic Surgery/[facility] Progress Note PATIENT NAME: Ritika Santana DATE: 01/11/25 HPI: 79-year-old female with past medical history of macular degeneration, GERD, paroxysmal A-fib, hypertension, presented to the ED at [facility] with complaints of worsening shortness of breath. Per patient she has always had shortness of breath but it has started to get worse recently. She also noted a dull ache radiating feeling sporadically at times that started to happen more frequently. She said these episodes initially started off lasting only a couple minutes but one of the last ones happened about 30 minutes. Cardiac enzymes were elevated in the ED and cardiology was consulted. Of note she does follow with cardiology as an outpatient for her proximal A-fib and she had called prior to her ED visit on 01/07. Patient mated with NSTEMI and cath was scheduled. Cardiac cath was completed 01/08/2025 which showed multivessel CAD involving left main She was transferred to [facility] for surgical evaluation. Interval History: 01/11/25: Afebrile, NSR on tele, BP stable, on RA. Plan for CABG tomorrow (Sunday) with Dr. Coreas. Patient lying in bed, awake and alert. Family at bedside. Dr. Coreas previously at bedside, answered all questions. Discussed pre-op orders. Objective: Last BM Date: 01/09/25 Vitals: BP: 143/71, MAP (mmHg): 95, BP Method: Automatic Heart Rate: 70 Resp: 17 Temp: 36.3 C (97.3 F), Temp Source: Temporal BMI (Calculated): 26.58 BMP: Recent Labs 01/09/25 1502 01/10/25 0421 01/11/25 0101 NA 136 141 139 K 3.9 3.7 4.0 CL 105 109* 108* CO2 21* 23 19* BUN 18 18 26* CREATININE 0.71 0.75 0.85 CALCIUM 9.9 9.2 8.9 CBC: Recent Labs 01/09/25 0827 01/10/25 0421 01/11/25 0101 WBC 5.0 5.7 6.0 HGB 13.2 12.7 12.6 HCT 40.1 39.8 38.3 PLT 232 228 213 MCV 87.9 88.8 88.5 RDW 14.3 14.2 14.1 INR: Recent Labs 01/09/25 1502 INR 1.0 Physical Exam Vitals reviewed. Constitutional: General: She is not in acute distress. Appearance: She is not ill-appearing or diaphoretic. Cardiovascular: Rate and Rhythm: Normal rate and regular rhythm. Pulses: Normal pulses. Heart sounds: No murmur heard. Pulmonary: Effort: Pulmonary effort is normal. Breath sounds: No wheezing, rhonchi or rales. Abdominal: General: There is no distension. Palpations: Abdomen is soft. Tenderness: There is no abdominal tenderness. Skin: General: Skin is warm and dry. Capillary Refill: Capillary refill takes less than 2 seconds. Neurological: General: No focal deficit present. Mental Status: She is alert and oriented to person, place, and time. Assessment: MVCAD HTN GERD Afib Macular degeneration Plan: Review testing, echocardiogram in progress. Pre-op orders placed. -NPO at midnight, type and screen, prepare 2units PRBC. -MRSA swab, chlorhexidine mouth wash, baths and bactroban nasal ointment. -Stop heparin gtt at midnight. -AM labs. Patient discussed and plan of day developed from rounds between Cardiothoracic Surgery (Cardiothoracic Surgeon, CONSTANCE) and Critical Care Attending A total of 30 minutes were spent between the [id number] encounter, physical exam, reviewing the medical history, coordinating the patient's care, counseling/educating the patient, ordering medications/test/procedures, interpreting results and documenting clinical information in the patients electronic health record on the day of the encounter. The patient was seen and examined Nutrition rescreen completed. Chart reviewed. Patient to be monitored and followed by the diet wellfield technician. TRUE Tinoco Patient arrived to floor. Nursing eval reveals patient has intact cath site and stable vital signs. We will admit patient and assess CAD. Regular diet and activity for now. Full assessment imminent. documented in this encounter [facility] 01-26-2025 Miscellaneous Notes Patient Choice Patient Name: RITIKA SANTANA Date of : 1945 All Providers Sent Referral Name: [facility]. Phone: [phone] Address: [address] [place] [address] Discharge med list transmitted to [facility] via [facility] per TCC request. [id number] completed in [facility] per TCC request. Facility notified via [employer]. Confirmed pickup time of 1500 by transport company [employer] Harg[employer] at phone number [phone]. Location of facility drop off is [facility]. Facility notified via [facility], [facility] notified on secure chat. Insurance authorization received for [facility], discharge order obtained, transportation set for 3pm. Requested MAR/discharge orders be sent to facility and Patient/Family, staffing associate updated. Care Management Progress Note Chart reviewed, s/p CABG x 4 01/12. Updated PT/OT note requested this am. Facility notified and insurance auth for [facility] started this am. Length of Stay (Days): 17 GMLOS: 8.1 Problem: Knowledge Deficit Goal: Patient/family/caregiver demonstrates understanding of disease process, treatment plan, medications, and discharge instructions 01/24/20252049 by Lissa Malloy RN Outcome: Progressing 01/24/20252049 by Lissa Malloy RN Outcome: Progressing Problem: Potential for Compromised Skin Integrity Goal: Skin Integrity is Maintained or Improved 01/24/20252049 by Lissa Malloy RN Outcome: Progressing 01/24/20252049 by Lissa Malloy RN Outcome: Progressing Goal: Nutritional status is improving 01/24/20252049 by Lissa Malloy RN Outcome: Progressing 01/24/20252049 by Lissa Malloy RN Outcome: Progressing Problem: Urinary Incontinence Goal: Perineal skin integrity is maintained or improved 01/24/20252049 by Lissa Malloy RN Outcome: Progressing 01/24/20252049 by Lissa Malloy RN Outcome: Progressing Problem: Problem Interventions Goal: Assess Nutritional Intake 01/24/20252049 by Lissa Malloy RN Outcome: Progressing 01/24/20252049 by Lissa Maloly RN Outcome: Progressing Problem: Knowledge Deficit Goal: Patient/family/caregiver demonstrates understanding of disease process, treatment plan, medications, and discharge instructions Outcome: Progressing Problem: Potential for Compromised Skin Integrity Goal: Skin Integrity is Maintained or Improved Outcome: Progressing Goal: Nutritional status is improving Outcome: Progressing Problem: Urinary Incontinence Goal: Perineal skin integrity is maintained or improved Outcome: Progressing Problem: Problem Interventions Goal: Assess Nutritional Intake Outcome: Progressing Problem: Knowledge Deficit Goal: Patient/family/caregiver demonstrates understanding of disease process, treatment plan, medications, and discharge instructions Outcome: Adequate for Discharge Problem: Potential for Compromised Skin Integrity Goal: Skin Integrity is Maintained or Improved Outcome: Adequate for Discharge Goal: Nutritional status is improving Outcome: Adequate for Discharge Problem: Urinary Incontinence Goal: Perineal skin integrity is maintained or improved Outcome: Adequate for Discharge Note: Adequate for discharge. Awaiting SNF bed Problem: Problem Interventions Goal: Assess Nutritional Intake Outcome: Adequate for Discharge Problem: Knowledge Deficit Goal: Patient/family/caregiver demonstrates understanding of disease process, treatment plan, medications, and discharge instructions Outcome: Progressing Problem: Potential for Compromised Skin Integrity Goal: Skin Integrity is Maintained or Improved Outcome: Progressing Goal: Nutritional status is improving Outcome: Progressing Problem: Urinary Incontinence Goal: Perineal skin integrity is maintained or improved Outcome: Progressing Problem: Problem Interventions Goal: Assess Nutritional Intake Outcome: Progressing Care Management Progress Note Chart reviewed, s/p CABG x 4 01/12. PT/OT recommending IPR. Insurance denied IPR and Peer to Peer attempted without success. I spoke with Taqueria Wolfe at [facility] this am and they currently do not have any beds available. Hoping for early next week. Patient/Spouse chose facility due to location. Discharge plan SNF vs home with Home Care. Patient hoping to progress over the weekend to go home. Length of Stay (Days): 14 GMLOS: 8.1 Problem: Knowledge Deficit Goal: Patient/family/caregiver demonstrates understanding of disease process, treatment plan, medications, and discharge instructions 01/23/2025520 by Yin England RN Outcome: Progressing 01/22/20252253 by Yin England RN Outcome: Progressing Problem: Potential for Compromised Skin Integrity Goal: Skin Integrity is Maintained or Improved 01/23/2025520 by Yin England RN Outcome: Progressing 01/22/20252253 by Yin England RN Outcome: Progressing Goal: Nutritional status is improving 01/23/2025520 by Yin England RN Outcome: Progressing 01/22/20252253 by Yin England RN Outcome: Progressing Problem: Urinary Incontinence Goal: Perineal skin integrity is maintained or improved 01/23/2025520 by Yin England RN Outcome: Progressing 01/22/20252253 by Yin England RN Outcome: Progressing Problem: Problem Interventions Goal: Assess Nutritional Intake 01/23/2025520 by Yin England RN Outcome: Progressing 01/22/20252253 by Yin England RN Outcome: Progressing Requested [facility] start insurance authorization. Referral placed to SNF - [facility] per TCC request. Await review and response regarding ability to accept. TCC notified. Follow-up discussion had at the bedside with Patient and Spouse regarding discharge plan. They requested a referral be made to [facility]. Ref[facility]. Care Management Progress Note Chart reviewed, s/p CABG x 4 01/12. PT/OT recommending IPR. Insurance denied IPR and Peer to Peer attempted without success. Discussion had with Patient and Spouse this am at the bedside. They are both unsure if they want SNF placement vs home with Home Care. They would like time to discuss with Family. Will follow-up. Length of Stay (Days): 13 GMLOS: 8.1 Problem: Knowledge Deficit Goal: Patient/family/caregiver demonstrates understanding of disease process, treatment plan, medications, and discharge instructions Outcome: Progressing Problem: Potential for Compromised Skin Integrity Goal: Skin Integrity is Maintained or Improved Outcome: Progressing Goal: Nutritional status is improving Outcome: Progressing Problem: Problem Interventions Goal: Assess Nutritional Intake Outcome: Progressing Problem: Knowledge Deficit Goal: Patient/family/caregiver demonstrates understanding of disease process, treatment plan, medications, and discharge instructions 01/21/20251912 by Yin England RN Outcome: Progressing 01/21/2025 1306 by Yin England RN Outcome: Progressing Problem: Potential for Compromised Skin Integrity Goal: Skin Integrity is Maintained or Improved 01/21/20251912 by Yin England RN Outcome: Progressing 01/21/2025 1306 by Yin England RN Outcome: Progressing Goal: Nutritional status is improving 01/21/20251912 by Yin England RN Outcome: Progressing 01/21/2025 1306 by Yin England RN Outcome: Progressing Problem: Urinary Incontinence Goal: Perineal skin integrity is maintained or improved 01/21/20251912 by Yin England RN Outcome: Progressing 01/21/2025 1306 by Yin England RN Outcome: Progressing Problem: Problem Interventions Goal: Assess Nutritional Intake 01/21/20251912 by Yin England RN Outcome: Progressing 01/21/2025 1306 by Yin England RN Outcome: Progressing Received a phone call from Chhaya at [facility] that Pamela is requesting a Peer to Peer for Rehab admission. Needs done before 8am: 01/22/25 [birth year], Member ID-PAMELA MEDICARE ADVANTAGE [id number]? Direct line to Pamela [phone]. Information provided to EVALUATOR TRANSFER STUDENTS. Patient and Spouse updated at the bedside and SNF List with medicare star ratings explained and provided as a back-up plan. Referral placed to [facility] via [facility] per TCC request. Care Management Progress Note Chart reviewed, s/p CABG x 4 01/12. PT/OT recommending IPR. Insurance authorization started 01/20. Patient and Family updated at the bedside. Length of Stay (Days): 12 GMLOS: 8.1 Received call from [facility] and confirmed with Chhaya that they can accept patient and that they will start insurance authorization today. Patient updated. Problem: Knowledge Deficit Goal: Patient/family/caregiver demonstrates understanding of disease process, treatment plan, medications, and discharge instructions Outcome: Progressing Problem: Potential for Compromised Skin Integrity Goal: Skin Integrity is Maintained or Improved Outcome: Progressing Goal: Nutritional status is improving Outcome: Progressing Problem: Urinary Incontinence Goal: Perineal skin integrity is maintained or improved Outcome: Progressing Problem: Problem Interventions Goal: Assess Nutritional Intake Outcome: Progressing Referral placed to [facility] via [facility] per TCC request. Await review and response regarding ability to accept. TCC notified. Care Management Progress Note Chart reviewed, s/p CABG x 4 01/12. PT recommending IPR on 6/6. Requested updated therapy notes today. Discussion had with Patient and Spouse Lolis at the bedside regarding discharge plan. Explained Rehab and Skilled level of care. They would like a referral to [facility]. Referral requested in [facility]. Length of Stay (Days): 10 GMLOS: 8.1 Problem: Knowledge Deficit Goal: Patient/family/caregiver demonstrates understanding of disease process, treatment plan, medications, and discharge instructions Outcome: Progressing Problem: Potential for Compromised Skin Integrity Goal: Skin Integrity is Maintained or Improved Outcome: Progressing Goal: Nutritional status is improving Outcome: Progressing Problem: Urinary Incontinence Goal: Perineal skin integrity is maintained or improved Outcome: Progressing Problem: Problem Interventions Goal: Assess Nutritional Intake Outcome: Progressing Problem: Knowledge Deficit Goal: Patient/family/caregiver demonstrates understanding of disease process, treatment plan, medications, and discharge instructions Outcome: Progressing Problem: Potential for Compromised Skin Integrity Goal: Skin Integrity is Maintained or Improved Outcome: Progressing Goal: Nutritional status is improving Outcome: Progressing Problem: Urinary Incontinence Goal: Perineal skin integrity is maintained or improved Outcome: Progressing Problem: Problem Interventions Goal: Assess Nutritional Intake Outcome: Progressing Problem: Knowledge Deficit Goal: Patient/family/caregiver demonstrates understanding of disease process, treatment plan, medications, and discharge instructions Outcome: Progressing Problem: Potential for Compromised Skin Integrity Goal: Skin Integrity is Maintained or Improved Outcome: Progressing Goal: Nutritional status is improving Outcome: Progressing Problem: Urinary Incontinence Goal: Perineal skin integrity is maintained or improved Outcome: Progressing Problem: Problem Interventions Goal: Assess Nutritional Intake Outcome: Progressing Problem: Potential for Compromised Skin Integrity Goal: Nutritional status is improving Outcome: Not Progressing Problem: Problem Interventions Goal: Assess Nutritional Intake Outcome: Not Progressing Care Management Progress Note Chart reviewed, s/p CABG x 4 01/12. Cont IV Lasix, supplemental O2. PT/OT recommending IPR. Patient medicated for pain this am and sleepy. Discussion had with Uozwhsam-Yg-Ipe and patient at the bedside. Discussed therapy recommendations and explained IPR and SNF. SNF List with medicare star ratings explained and provided. Discharge TBD. Length of Stay (Days): 7 GMLOS: 8.1 Problem: Knowledge Deficit Goal: Patient/family/caregiver demonstrates understanding of disease process, treatment plan, medications, and discharge instructions Outcome: Progressing Problem: Potential for Compromised Skin Integrity Goal: Skin Integrity is Maintained or Improved Outcome: Progressing Goal: Nutritional status is improving Outcome: Progressing Problem: Urinary Incontinence Goal: Perineal skin integrity is maintained or improved Outcome: Progressing Problem: Problem Interventions Goal: Assess Nutritional Intake Outcome: Progressing Start PACC Note Home Health Referral Educated patient on Home Care and services available. Patient offered choice of available HHC and agreeable to SN/PT services with [facility]. Care Types: None Isolation Precautions: No active isolations Social Determinates of Health: Tobacco Use: Unknown (01/12/2025) Patient History Smoking Tobacco Use: Never Smokeless Tobacco Use: Unknown Passive Exposure: Not on file Social History Substance and Sexual Activity Alcohol Use Never Social History Substance and Sexual Activity Drug Use Never Does the patient have any financial resource strain? No Does the patient have any food insecurities? No Does the patient have any housing instabilities? No If any of the above is noted as yes - consider a TAX ACCOUNTING ASSISTANT evaluation once the patient returns home. START PATIENT REGISTRATION INFORMATION Order Information Order Signing Physician: Lacho Coreas MD Service Ordered RN ?: Yes Service Ordered PT ?: Yes Service Ordered OT ?: No Service Ordered ST ?: No Service Ordered TAX ACCOUNTING ASSISTANT?:No Service Ordered IT SUPPORT SPECIALIST?: No Following Physician: Lacho Coreas MD Following Physician Overseeing Physician: Lacho Coreas MD (Required for Residents only) Agreeable to Follow? Yes Date/Time of Call 01/15/25 1:01 PM, Spoke with: cts protocol Care Coordination Same Day SOC?: No Primary Care Physician: Becky Mcknight Primary Care Physician Primary Care Physician Address: [address] [place] [phone] Visit Instructions: N/A Service Discharge Location Type: Home with Home Care Service Facility Name: N/A Service Floor Facility: N/A Service Room No: N/A Demographics Patient Last Name: Esther Patient First Name: Ritika Language/Communication Barrier: no Service Address: [address] [place] [address] Service City: [place] Service ST: [place] Service ZIP: [phone] Service (home) Other phone numbers: Telephone Information: Emergency Contact: Extended Emergency Contact Information Primary Emergency Contact: Efrain Santana Mobile Relation: Spouse Secondary Emergency Contact: Simona Santana Mobile Relation: Daughter Admission Information Admit Date: 01/09/2025 Patient status at discharge: Inpatient Admitting Diagnosis: CAD, multiple vessel [I25.10] Caregiver Information Caregiver First Name: nithya Caregiver Last Name: nithya Caregiver Relationship to Patient na Caregiver Phone Number: na Caregiver Notes: N/A [employer] List HIGHTECH: [employer] TECH - NEXT DAY REQUEST Requests Next Available SOC/EBONI END PATIENT REGISTRATION INFORMATION Pt Home Health goal go home COVID Status 1. Do you have any upper respiratory symptoms (cough, SOB, Fever)? No 2. Have you been exposed to anyone with COVID-19 Virus? No Answer only if pending or positive for COVID-19? 1. Agreeable to wear PPE at each visit? No 2. Is the hospital supplying them with PPE upon Discharge? No Start PACC Summary General Report/ Additional Comments Wound care/dressing changes: -Surgical incisions leave open to air, cleanse daily with mild soap & warm water, pat dry, no lotion or powders on incision. -Surgical tape/dsg removal 10 days from surgery date Respiratory Care: -Cough and Deep Breath; Use incentive spirometry 10 times every hour while awake for 2 weeks. Additional Orders: -Sternal precautions (no lifting, pushing, pulling >10 lbs) for 6 weeks-use heart pillow -Vitals per home health protocol-call for fever and chills -Daily weights- call for weight gain: 2-3lbs in one day; 5lbs in 3 days. -Wear TEDs during day and off at night. Lab Work: -If Diabetic: blood glucose testing as directed by PCP/Forging Press Operator -For recent heart surgery if patient discharged on Coumadin verify need for INR draw on visit. Activity/Weight Bearing: -Up with assistance: up in chair for all meals, ambulate 3-4 times a day -Stretching exercises per PT discharge instructions Discharge Date: pending Referral Source-PACC: (Hospital/Unit): [facility] / T1-/T1-103 A End PACC Note Problem: Knowledge Deficit Goal: Patient/family/caregiver demonstrates understanding of disease process, treatment plan, medications, and discharge instructions Outcome: Progressing Problem: Potential for Compromised Skin Integrity Goal: Skin Integrity is Maintained or Improved Outcome: Progressing Goal: Nutritional status is improving Outcome: Progressing Problem: Urinary Incontinence Goal: Perineal skin integrity is maintained or improved Outcome: Progressing Problem: Problem Interventions Goal: Assess Nutritional Intake Outcome: Progressing Care Management Progress Note Chart reviewed, s/p CABG X 4 6/2, chest tubes to water seal, supplemental O2, PT recommending IPR. Discharge plan home with Spouse and [facility] Care pending progress. Length of Stay (Days): 5 GMLOS: 8.1 Care Management Progress Note Consults to IP CONSULT TO WOUND PREVENTION Discharge Planning/Barriers: 01/12/25 0721 Rapid Rounds Attendance Special Order Jeweler Planned Discharge Disposition HH Services Today we still await Administering IV medications;Clinical stability;Warehouse Loader recommendations (comment);Procedure (comment) Additional Comments: CABG today CM tasked RAZA to follow via [facility]. Discharge Plan: Home with [facility]. Case management will continue to follow for discharge planning with RAZA. 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 Drains: NG/OG Tube Orogastric Center mouth (Active) Placement Verification X-ray 01/12/25 1307 External Catheter Length (cm) 50 cm 01/12/25 1307 Site Assessment Clean;Dry;Intact 01/12/25 1307 Status Low intermittent suction 01/12/25 1307 Urethral Catheter (Active) Catheter Indications Short-term following a surgical procedure (i.e. Urological or Gynecological) or active irrigation 01/12/25 130 Site Assessment Clean;Skin intact 01/12/25 130 Collection Container Standard drainage bag 01/12/25 130 Securement Method Securing device 01/12/251306 Catheter Best Practices Drainage tube clipped to bed;Catheter secured to thigh;Tamper seal intact;Bag below bladder;Bag not on floor;Lack of dependent loop in tubing;Drainage bag less than half full 01/12/25 130 Catheter Status Draining 01/12/25 130 Output (mL) 100 mL 01/12/25 1500 Y Chest Tube 1 and 2 28 Fr. 28 Fr. (Active) Function -20 cm H2O 01/12/25 130 Chest Tube Air Leak No 01/12/25 130 Drainage Description 1 Sanguineous 01/12/25 1307 Dressing Status 1 Clean;Dry;Intact 01/12/25 1307 Site Assessment 1 Not assessed 01/12/25 130 Surrounding Skin 1 Unable to view 01/12/25 1307 Drainage Description 2 Sanguineous 01/12/25 1307 Dressing Status 2 Clean;Dry;Intact 01/12/25 1307 Site Assessment 2 Not assessed 01/12/25 130 Surrounding Skin 2 Unable to view 01/12/25 1307 Output (mL) 20 mL 01/12/25 1500 Implants Type Name Action Serial No. Clip CLIP ATRICLIP 40MM - [id number] Implanted Staff: Television Receiver Analyzer: Vanessa Galeano RN Relief Television Receiver Analyzer: Evonne Heard RN Scrub Person: Ana Wayne RN First Assist: Anna Beyer RN Indications: Ritika Santana is an 79 y.o. female with h/o afib presenting with NSTEMI and found to have multivessel CAD. CABG with LAAC was recommended and risks/benefits were discussed with the patient and family and they elected to proceed with surgery. Details: CABG x 4 (BLANCO-LAD, SVG-PDA, SVG-OM1, SVG-diag), LAAC with 40mm clip The patient was taken to the operating room, where the patient was intubated and general anesthesia was induced, Swift inserted, and a central line and arterial line were placed. The patient was prepped and draped in usual sterile fashion. A timeout was performed verifying the correct patient, procedure, and operative plan. Appropriate VTE prophylaxis was administered. Antibiotics were given initially and redosed as appropriate throughout the case. A midline sternotomy was created with a reciprocating saw and hemostasis was achieved. left GSV Endoscopic vein harvesting was performed. The left mammary artery was harvested in a skeletonized fashion. The mediastinum was then dissected, the pericardium was opened, and pericardial stay sutures were placed. Heparin was given and the aorta was cannulated in standard fashion. The distal end of the mammary artery was then taken down from the chest wall and prepped in papaverine solution. Venous cannula was inserted in the right atrial appendage. After confirmation of adequate ACT above 480 seconds, the patient was placed on cardiopulmonary bypass with good flows. The aortic root vent/antegrade cardioplegia catheter was inserted, followed by the retrograde cardioplegia catheter. The aortic cross-clamp was then placed while bypass was at low flow, and cold blood antegrade cardioplegia was given followed by retrograde cardioplegia with quick arrest of the heart. Cardioplegia was then redosed every 15-30 minutes throughout the case. A mesh sling was then positioned to support the heart while examining targets and performing distal anastomoses. Distal targets were then examined for bypass. The PDA, OM1, and diag were adequate targets and GSV was anastomosed to these targets with 7-0 prolene. The left atrial appendage was identified and clipped with a 40mm clip. After the distal anastomoses were created, antegrade cardioplegia was given, and the proximal anastomoses were created on the ascending aorta with 6-0 Prolene. Antegrade cardioplegia was then given, the proximal aorta de-aired, and the anastomoses were found to be hemostatic. The BLANCO was then examined and found to have good flow. The LAD target was identified. The BLANCO was anastomosed to the LAD in standard fashion using 7-0 Prolene. The patient was placed in Trendelenburg position, the pump was decreased to low flow, and the cross-clamp was removed. Electrical activity of the heart resumed. Pacing wires were placed (may be cut/pulled). The flow probe was again used to check all grafts, which were all confirmed to have excellent flow. Hemostasis at all anastomoses was checked and found to be adequate. Ventilation was resumed, and the heart was filled. On SULLY examination, heart function was good and there was no residual air. Bypass flows were reduced incrementally, the patient was weaned from cardiopulmonary bypass, and protamine was given without issue. Cannulas were removed sequentially after hemostasis was again confirmed. Chest tubes were placed. The chest was closed with a combination of sternal wires and sternal plating, the fascia was closed with a running 0 Vicryl suture, skin was closed with Monocryl suture, surgical glue was applied at the skin level. Sponge, needle, and instrument counts were correct prior to closure of the sternum and a second count was performed at the end of the case to verify. An operative signout was performed with the entire operative staff. The patient was taken to the ICU, intubated, on low dose Epi and vaso, and an additional signout was performed with the CVICU staff upon arrival to the unit. Lacho Coreas MD Cardiothoracic Surgeon 01/12/25 3:31 PM Problem: Knowledge Deficit Goal: Patient/family/caregiver demonstrates understanding of disease process, treatment plan, medications, and discharge instructions Outcome: Progressing Problem: Potential for Compromised Skin Integrity Goal: Skin Integrity is Maintained or Improved Outcome: Progressing Goal: Nutritional status is improving Outcome: Progressing Problem: Urinary Incontinence Goal: Perineal skin integrity is maintained or improved Outcome: Progressing Problem: Knowledge Deficit Goal: Patient/family/caregiver demonstrates understanding of disease process, treatment plan, medications, and discharge instructions Outcome: Progressing Problem: Potential for Compromised Skin Integrity Goal: Skin Integrity is Maintained or Improved Outcome: Progressing Goal: Nutritional status is improving Outcome: Progressing Problem: Urinary Incontinence Goal: Perineal skin integrity is maintained or improved Outcome: Progressing Care Management Progress Note Consults to None Initial Assessment: Chart reviewed. Patient from home? Patient has insurance and PCP listed on EHR. H&P not completed at this time. CM will follow for discharge planning. Discharge Planning/Barrier: 01/09/25 0804 Rapid Rounds Attendance Special Order Jeweler Planned Discharge Disposition Other (TBD) Today we still await Administering IV medications;Clinical stability;Warehouse Loader recommendations (comment) Additional Comments: CT-SGY Discharge Plan: TBD. Case management will continue to follow for discharge planning. Length of Stay (Days): 0 GMLOS: No GMLOS Documented documented in this encounter [facility] 01-26-2025 Note [facility] 01-26-2025 Hospital course Narrative Images from the original note were not included. Discharge Summary: Cardiothoracic Surgery Ritika Santana, 79 y.o., 1945 ADMIT DATE: 01/09/2025 DISCHARGE DATE: 01/26/2025 VISIT STATUS: Admission CODE STATUS: Full Code DISCHARGING SURGEON: Lacho Coreas MD, Office Number: [phone] DISCHARGE DIAGNOSES: MVCAD s/p CABGx 4 HTN GERD Afib Macular degeneration Post operative Pulm Management: Normal Post-operative Course Acute blood loss anemia/consumptive coagulopathy BMI CLASSIFICATION:Overweight (BMI 25.0-29.9) TREATMENT TEAM: Primary Care Physician: Becky Mcknight Court Abstractor: Dr. Ruth - [place] SURGERY: s/p CABGx4 (BLANCO to LAD, svg to PDA, svg to OM1, svg to diag) with Dr. Coreas on 01/12/25 HOSPITAL COURSE: 79-year-old female with past medical history of macular degeneration, GERD, paroxysmal A-fib, hypertension, presented to the ED at [facility] with complaints of worsening shortness of breath. Per patient she has always had shortness of breath but it has started to get worse recently. She also noted a dull ache radiating feeling sporadically at times that started to happen more frequently. She said these episodes initially started off lasting only a couple minutes but one of the last ones happened about 30 minutes. Cardiac enzymes were elevated in the ED and cardiology was consulted. Of note she does follow with cardiology as an outpatient for her proximal A-fib and she had called prior to her ED visit on 01/07. Patient mated with NSTEMI and cath was scheduled. Cardiac cath was completed 01/08/2025 which showed multivessel CAD involving left main She was transferred to [facility] for surgical evaluation. Surgery was discussed and she consented. She was taken to the operating room on 01/12/[address] Coreas where she underwent CABGx4 (BLANCO to LAD, svg to PDA, svg to OM1, svg to diag. Postoperative course was uncomplicated. She progressed nicely postoperatively but due to her physical activity discharge to SNF was recommended by PT/OT. Once she was medically hemodynamically stable she was discharged to SNF[facility] on 01/26/25, POD#14. DIAGNOSTICS: BP 112/60 (BP Location: Left arm, Patient Position: Sitting) Pulse 73 Temp 36.2 C (97.2 F) (Temporal) Resp 16 Ht 5' 3 (1.6 m) Wt 144 lb 6.4 oz (65.5 kg) SpO2 97% BMI 25.58 kg/m Recent Labs 01/24/25 0454 01/25/25 0547 01/26/25 0530 CREATININE 0.78 0.76 0.70 HGB 8.6* 7.9* 8.8* PLT 310 317 311 WBC 8.9 7.1 6.1 NA 140 142 142 K 3.2* 3.2* 3.3* ECHO: 01/23/25 Interpretation Summary Left Ventricle: Left ventricle size is normal. Normal wall thickness. Normal left ventricular systolic function. Normal wall motion. Right Ventricle: Right ventricle size is normal. Normal systolic function. All findings discussed with surgical team Echo Findings Left Ventricle Left ventricle size is normal. Normal wall thickness. Normal left ventricular systolic function. Normal wall motion. Right Ventricle Right ventricle size is normal. Normal systolic function. Left Atrium Left atrium size is normal. Right Atrium Right atrium size is normal. Aortic Valve Trileaflet. Trace regurgitation. No stenosis. Mitral Valve Valve structure is normal. Mild to moderate (1-2+) regurgitation. No stenosis noted. Tricuspid Valve Valve structure is normal. Mild (1+) regurgitation. Pulmonic Valve The pulmonic valve was not well visualized. Trace regurgitation. Pericardium The pericardium is normal. No pericardial effusion. DISCHARGE MEDICATIONS: Medication List START taking these medications apixaban 5 MG tablet Commonly known as: Eliquis Take 1 tablet (5 mg) by mouth 2 times daily. atorvastatin 20 MG tablet Commonly known as: Lipitor Take 1 tablet (20 mg) by mouth daily. Start taking on: January 27, 2025 clopidogrel 75 MG tablet Commonly known as: Plavix Take 1 tablet (75 mg) by mouth daily. Start taking on: January 27, 2025 furosemide 40 MG tablet Commonly known as: Lasix Take 1 tablet (40 mg) by mouth daily for 5 days. Start taking on: January 27, 2025 hydrOXYzine pamoate 25 MG capsule Commonly known as: Vistaril Take 1 capsule (25 mg) by mouth every 12 hours as needed for anxiety for up to 10 days. melatonin 5 MG tablet Take 1 tablet (5 mg) by mouth Nightly. metoprolol tartrate 25 MG tablet Commonly known as: Lopressor Take 1 tablet (25 mg) by mouth 2 times daily. mirtazapine 15 MG disintegrating tablet Commonly known as: Remeron Elizabeth-Tab Take 1 tablet (15 mg) by mouth Nightly. potassium chloride CR 20 MEQ ER tablet Commonly known as: Klor-Con M20 Take 1 tablet (20 mEq) by mouth daily for 5 days. Do not crush or chew. CONTINUE taking these medications cetirizine 10 MG tablet Commonly known as: ZyrTEC latanoprost 0.005 % ophthalmic solution Commonly known as: Xalatan Where to Get Your Medications Information about where to get these medications is not yet available Ask your nurse or doctor about these medications apixaban 5 MG tablet atorvastatin 20 MG tablet clopidogrel 75 MG tablet furosemide 40 MG tablet hydrOXYzine pamoate 25 MG capsule melatonin 5 MG tablet metoprolol tartrate 25 MG tablet mirtazapine 15 MG disintegrating tablet potassium chloride CR 20 MEQ ER tablet *The patient's OARRS report was obtained and reviewed.* No narcotics d/c'ed at discharge ACTIVITY: activity as tolerated, strict post-sternotomy/post-thoracotomy sternal precautions as outlined in the home going instructions, and no driving or operating heavy machinery until released by provider STRICT POST-STERNOTOMY/POST-THORACOTOMY PRECAUTIONS OUTLINED IN THE HOME GOING INSTRUCTIONS Wires Only Weight restriction measures 1-4 weeks from date of surgery- 10lbs weight restriction: 02/09/25 5-8 weeks from date of surgery- 20lbs weight restriction approximate end date: 03/09/25 FOLLOW UP: Billy MCLEAN February 10 2025, 10am [address] [facility] [place] [address] Dept: [phone] Dept CORE CARDIAC MEDICATIONS PRESCRIBED AT DISCHARGE: Beta-clark prescribed at discharge: [x] Yes [] No - reason why: ACEi or ARB prescribed at discharge: [] Yes [x] No - reason why: EF greater than 40% Statin prescribed at discharge: [x] Yes [] No - reason why: Anti-platelet agent prescribed at discharge: [x] Yes [] No - reason why: If yes, type: plavix Post-operative Atrial Fibrillation: []Yes [x] No OAC: [x] Yes [] No Initial Post-op RBC transfusion date/reason: transfused postoperatively Chronic Lung Disease: Unknown DISPOSITION: [facility] A copy of the discharge instructions which included the medications at the time of discharge, follow-up appointments, phone numbers to call with questions, activity, restrictions, and limitations was provided to the patient or their family. We greatly appreciate the opportunity to participate in the care of your patient. If you have any additional questions or concerns regarding any aspects of their care or management please do not hesitate to contact us. SIGNED: Cosigned by Lacho Coreas MD at 01/26/2025 12:23 PM EDT Associated attestation - Lacho Coreas MD - 01/26/2025 12:23 PM EDT Attending Note I personally saw and evaluated the patient. I reviewed and agree with the CONSTANCE s documentation. I provided a substantive portion of the care of this patient. I personally performed the medical decision making for this encounter as follows: Patient seen and examined on 01/26/25. As below, ok for discharge today and follow up in the office as scheduled. STAFF PHYSICIAN: Lacho Coreas MD DATE OF SERVICE: January 26, 2025 TIME OF SERVICE: 12:23 PM documented in this encounter [facility] 01-26-2025 Hospital Discharge instructions Billymaryann Gonzalez APRN - WEBSPHERE ADMINISTRATOR - 01/26/2025 11:02 AM EDT Images from the original note were not included. [facility] Medical Group: Cardiothoracic Surgery [address] [facility] #[phone] Notify us if the following occur - Increased tenderness, redness, or swelling of your incisions. - Any drainage from the chest incision (clear or pink drainage from the leg incision or chest tube site is common). - Angina symptoms like those you had before surgery - Sharp pain in chest, neck or shoulder that is worse when taking a deep breath - Persistent fever greater than 100 degrees F or 38 degrees C - Flu-like symptoms-chills, aches, fever, increased fatigue - Heart rate faster than 150 beats/minute with shortness of breath or new irregular heart rate. - Any unusual bleeding - Shortness of breath not relieved by rest - Weight gain of three pounds in one day or five pounds over one week Activity Instructions - Sternal Precautions for 6 weeks - Do not lift, push, or pull anything heavier than 10 pounds for 6 weeks (a gallon of milk weighs 8 pounds). - Do not drive until you have been given permission by your surgeon/provider and until you are off narcotic/opioid pain medication - It is ok to sleep on your side if you prop pillows to support your back. Do not sleep on your stomach. - Walk at least 4 times a day, start with 5 minute intervals, increase minutes walked each day. Do not walk on a treadmill - Balance rest and activity during your recovery - Use the stairs, but go slowly, Use the handrail for balance but do not pull yourself up with your arms. - Shower daily. Do not take your heart medication right before you shower. You could become lightheaded from your blood pressure and heart medication. Always have someone nearby to assist you. - Do not take a tub bath or use a hot tub until all incision are completely healed (no scab). - Put laith hose on in AM and remove at bedtime. Elevate your feet above level of heart when you are sitting. - Cough and deep breathe and use incentive spirometer every hour (10x/hour while awake for two weeks). Other Instructions - Weigh yourself daily at the same time (after you urinate but before breakfast) - Keep a record of your daily weight, and bring to your first post op office visit - Take all medications as prescribed. Bring all your medication bottles to any follow up office visit Incision Care - Wash your sternal incision with anti-bacterial soap and warm water. Pat dry, and leave open to air. Do not use any lotions, or powders, or ointments. Cardiothoracic Surgery: Symptom Management Office phone number: [phone] Office is open 8:30 am -4 pm. If you need assistance after hours, this will direct you to a nursing hotline. GREEN ZONE: All Clear- Your Symptoms Are Under Control Incisional pain is managed by taking Acetaminophen and/or pain medication No increase in shortness of breath No increase in leg swelling or weight gain No frequent lightheadedness/dizziness No redness or drainage from incisions. Small amount of thin, blood tinged or yellow drainage is not uncommon for few days post discharge This Means You Should: Continue current plan of care Continue taking your medications as prescribed Continue activity as tolerated, including 4 walks daily and PT exercised Eat healthy diet, no caffeine Keep all follow-up appointments No smoking YELLOW ZONE: Caution Incisional pain that is getting worse and/or not managed by pain medication Increase in shortness of breath, especially when at rest Increased leg swelling or new leg swelling Weight gain (more than 3lb in 1 day or 5lb in 1 week) Lightheadedness, dizziness, or heavy sweating Redness and/or thick drainage from incision Fever/chills This Means You Should: Call cardiothoracic surgery line for further instructions: [phone] Office is open 8:30 am -4 pm. If you need assistance after hours, this will direct you to a nursing hotline. RED ZONE: Medical Alert Severe shortness of breath at rest Severe chest pain/pressure or pain that radiates to neck, jaw, back, and/or arm that is NOT relieved with rest and pain medication. May be similar to pain prior to surgery Passing out or fainting This Means You Should: call EMS or seek care in Emergency Department Mary Ramirez RN - 01/15/2025 1:00 PM EDT Images from the original note were not included. Continuity of Care Form Patient Name: Ritika Santana : 1945 Admit date: 01/09/2025 Discharge date: 01.26.25 Code Status Order: Full Code Advance Directives: N Admitting Physician: Lacho Coreas MD PCP: Becky Mcknight Discharging Nurse: Meghna Discharging Hospital Unit/Room#: T1-103/T1-103 A Discharging Unit Emergency Contact: Extended Emergency Contact Information Primary Emergency Contact: Efrain Santana Mobile Relation: Spouse Secondary Emergency Contact: Simona Santana Mobile Relation: Daughter Past Surgical History: Past Surgical History: Procedure Laterality Date BASAL CELL CARCINOMA EXCISION BREAST CYST EXCISION CATARACT EXTRACTION, BILATERAL Immunization History: Immunization History Administered Date(s) Administered COVID-19, mRNA, LNP-S, PF, ramiro-sucrose, 30 mcg/0.3 mL 05/11/2023, 05/07/2024 Covid-19, Pfizer Bivalent Booster, (Age 12y+), Im, 30 Mcg/0e 05/02/2022 Moderna SARS-CoV-2 Vaccination 10/29/2020, 11/26/2020, 06/23/2021, 11/29/2021 Active Problems: Medical Problems Problem List * (Principal) CAD, multiple vessel NSTEMI (non-ST elevated myocardial infarction) (HCC) GERD (gastroesophageal reflux disease) A-fib (CMS/HCC) (HCC) HTN (hypertension) Isolation/Infection: No active isolations No active infections Nurse Assessment: Last Vital Signs: BP 110/57 (BP Location: Right arm, Patient Position: Sitting) Pulse 80 Temp 36.6 C (97.9 F) (Oral) Resp (!) 28 Ht 1.6 m (5' 3) Wt 75 kg (165 lb 5.5 oz) SpO2 98% BMI 29.29 kg/m Last documented pain score (0-10 scale): Last Weight: Wt Readings from Last 1 Encounters: 01/14/25 75 kg (165 lb 5.5 oz) Mental Status: VIMAL Patient Mental Status: oriented and alert IV Access: VIMAL IV Access: None Nursing Mobility/ADLs: Walking Independent Transfer Minimal assistance Bathing Minimal assistance Dressing Minimal assistance Toileting Independent Feeding Independent Videotape Recording Engineer Independent Med Delivery yes Wound Care Documentation and Therapy: Wound/Incision 01/12/25 Incision Sternum (Active) Site Assessment Clean;Dry;Intact 01/15/25 1200 Venus-Wound Assessment Clean;Dry;Intact 01/15/25 1200 Odor None 01/15/25 1200 Drainage Amount None 01/15/25 1200 Treatments Cleansed 01/14/25 2000 Primary Dressing Liquid dressing adhesive;Open to air 01/15/25 1200 Dressing Status Clean, dry & intact 01/15/25 1200 State of Healing Closed wound edges 01/15/25 1200 Number of days: 3 Wound/Incision 01/12/25 Incision Calf Anterior;Left;Proximal (Active) Site Assessment Clean;Dry;Intact 01/15/25 1200 Venus-Wound Assessment Clean;Dry;Ecchymotic;Intact 01/15/25 1200 Odor None 01/15/25 1200 Drainage Amount None 01/15/25 1200 Treatments Cleansed 01/14/25 2000 Primary Dressing Liquid dressing adhesive;Open to air 01/15/25 1200 Dressing Status Clean, dry & intact 01/14/25 0700 State of Healing Closed wound edges 01/15/25 1200 Number of days: 3 Elimination: Continence: Bowel: yes Bladder: yes Urinary Catheter: None Colostomy/Ileostomy/Ileal Conduit: None Date of Last BM: 01.26.25 Intake/Output Summary (Last 24 hours) at 01/15/2025 1300 Last data filed at 01/15/2025 1200 Gross per 24 hour Intake 710 ml Output 1903 ml Net -1193 ml I/O last 3 completed shifts: In: 2412 (32.2 mL/kg) [P.O.:100; I.V.:2312 (30.8 mL/kg)] Out: 2610 (34.8 mL/kg) [Urine:2130 (0.8 mL/kg/hr); Chest Tube:480] Weight: 75 kg Safety Concerns: history of falls (last 30 days) and at risk for falls Impairments/Disabilities: none Nutrition Therapy: Current Nutrition Therapy: Oral diet: general Routes of Feeding: oral Liquids: thin liquids Daily Fluid Restriction: no Last Modified Barium Swallow with Video (Video Swallowing Test): not done Treatments at the Time of Hospital Discharge: Respiratory Treatments: Duoneb 3x Day Oxygen Therapy: is not on home oxygen therapy. Ventilator: No ventilator support Rehab Therapies: physical therapy and occupational therapy Weight Bearing Status/Restrictions: no restriction Other Medical Equipment (for information only, NOT a DME order): none Other Treatments: None Patient's personal belongings (please select all that are sent with patient): glasses and Phone RN SIGNATURE: MANAGEMENT/SOCIAL WORK SECTION Inpatient Status Date: [facility] Address: [address] [place] [address] Fax: Dialysis Facility (if applicable) Name: Address: Dialysis Schedule: Phone: Fax: Special Order Jeweler/Rental Salesperson signature: ICIAN SECTION Name: Ritika Santana Prognosis: good Condition at Discharge: stable Rehab Potential (if transferring to Rehab): good Recommended Labs or Other Treatments After Discharge: Wound care/dressing changes: -Surgical incisions leave open to air, cleanse daily with mild soap & warm water, pat dry, no lotion or powders on incision.Call if incision becomes reddened, opens or drains. Respiratory Care: -Cough and Deep Breath; Use incentive spirometry 10 times every hour while awake for 2 weeks. -Oxygen therapy-prn- Maintain oxygen sat> 92% Medications: -see Medication reconciliation (Med rec) Additional Orders: -Sternal precautions (no lifting, pushing, pulling >10 lbs) for 6 weeks-use heart pillow -Vitals every 8 hours while awake-call for fever and chills -Daily weights- call for weight gain -Wear TEDs during day and off at night. Lab/Imaging Work: -CBC/ BMP Activity/Weight Bearing: -Up with assistance: up in chair for all meals, ambulate 3-4 times a day -Ok to shower with assist (if pt has IV line then only if completely covered) Therapies: -PT: Eval and treat OT: eval and treat The individual is being admitted to a nursing facility directly from an [facility] or a unit of a hospital that is not operated by or licensed by [facility] under section 5119.14 or 5160-3-15.1 5 The individual requires the level of services provided by a nursing facility for the condition for which he or she was treated in the hospital and, Physician Certification: I certify the above information and transfer of Ritika Santana is necessary for the continuing treatment of the diagnosis listed and that she requires correction facility for less than 30 days. Update Admission H&P: Changes in H&P as follows: see below 79-year-old female with past medical history of macular degeneration, GERD, paroxysmal A-fib, hypertension, presented to the ED at [facility] with complaints of worsening shortness of breath. Per patient she has always had shortness of breath but it has started to get worse recently. She also noted a dull ache radiating feeling sporadically at times that started to happen more frequently. She said these episodes initially started off lasting only a couple minutes but one of the last ones happened about 30 minutes. Cardiac enzymes were elevated in the ED and cardiology was consulted. Of note she does follow with cardiology as an outpatient for her proximal A-fib and she had called prior to her ED visit on 01/07. Patient mated with NSTEMI and cath was scheduled. Cardiac cath was completed 01/08/2025 which showed multivessel CAD involving left main She was transferred to [facility] for surgical evaluation. Surgery was discussed and she consented. She was taken to the operating room on 01/12/[address] Coreas where she underwent CABGx4 (BLANCO to LAD, svg to PDA, svg to OM1, svg to diag. Postoperative course was uncomplicated. She progressed nicely postoperatively but due to her physical activity discharge to SNF was recommended by PT/OT. Once she was medically hemodynamically stable she was discharged to SNF[facility] on 01/26/25, POD#14. PHYSICIAN SIGNATURE: documented in this encounter [facility] 01-23-2025 Consult note Associated Order (s): IP CONSULT TO PSYCHOLOGY Department of Psychiatry Attending Consult Note Reason for Consult: anxiety, pt request Consulting Physician: Jade Perez, Ph.D Total Time: 50 minutes IDENTIFYING DATA: The patient is a 79 y.o. female with past medical history of macular degeneration, GERD, paroxysmal A-fib, hypertension, admitted with SOB, now status post CABG on 01/12/2025. History Obtained From: patient, EMR HISTORY OF PRESENT ILLNESS: Per pt's request her was present during this intake. Pt was alert, oriented, and participated. Pleasant, talkative; described few episodes of anxiety, feeling of lightheadedness and I never felt like that. Pt endorse some mild hx of anxiety (I tend to worry a lot at times), and pt's agrees with that. Pt stated that she is motivated to work with therapies; awaiting to hear re: SNF placement. No SI/HI. At this time, no manic, no psychotic symptoms. Past Psychiatric History: Pt denied any previous psychiatric admissions and no previous suicide attempts. Pt is currently not in counseling. Pt stated that she was not taking any psychotropic medications at home; per EMR, pt is on Remeron 15 mg, and Vistaril 25 mg PRN every 12 hours. Drug and Alcohol History: Pt denied any alcohol and drug use history. 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 Pt and enjoyed traveling when they were younger, pt likes spending time with family. MENTAL STATUS EXAM Mental Status Exam: Appearance: hospital gown Behavior: cooperative Activity normal Speech: spontaneous, normal rate Mood: somewhat anxious, Affect: congruent with mood Associations: goal directed Thought content: some worries present Thought process: logical, organized Orientation: oriented in all spheres Attention good Concentration good Insight: good Judgment: good Suicidal Intentions: no Suicidal Plan: no Impression : Unspecified Anxiety PLAN: Session focused on decreasing anxiety symptoms/ different anxiety reduction techniques, and supportive intervention. Pt actively participated. No SI/HI, pt is very future oriented. Discussed with the pt various treatment options including assessment for medications and outpatient follow up. Pt was willing to try Vistaril at this time, discussed with pt's RN. If you need emergent psychiatric management over the weekend, please call for a psychiatrist supervisor electron tube processing. Pt voiced clear understanding of all treatment plans. Thank you for consulting our services. Associated Order(s): IP CONSULT TO DIETITIAN; IP CONSULT TO DIETITIAN Reason for Visit: Consult (Diet Education: s/p open heart) - Recommend to continue Regular; Low Na; 5 Carb Choices (75 gm/meal) diet. - Per MNT protocol, will initiate Ensure Plus BID. Patient unavailable for diet education at this time. Will continue to monitor and will provide during next RD visit. Anna Montez RD Contact #: [phone] Associated Order(s): IP CONSULT TO CARDIAC REHAB Received referral and reviewed chart. Phase II Cardiopulmonary Rehab Referral discussed with Ritika Santana. Patient prefers cardiopulmonary rehab at [facility]. Given information on program at preferred location. Associated Order(s): IP CONSULT TO ENDOCRINOLOGY Department of Internal Medicine Division of Endocrinology, Diabetes, & Metabolism Endocrinology Note Patient Name: Ritika Santana : 1945 AGE: 79 y.o. Room[facility]: [facility] Admission Date: 01/09/2025 Visit Date: 01/12/2025 Reason for Endocrine Consult: post heart Provider/Team Requesting Consult: cts PCP: Becky Mcknight Outpt Forging Press Operator: No ASSESSMENT: Stress hyperglycemia CABGx4 CAD/HTN Afib PLAN: Continue on insulin gtt -per protocol ICU goal <180 GMF goal <150 POCT BG ACHS-q1 on gtt Hypoglycemia management per protocol Carb controlled diet when tolerates ANTICIPATED ENDOCRINE HOME GOING RECOMMENDATIONS: Optimized for Discharge from Endocrine standpoint: No Home Going Endocrine Rx Recommendations-- Likely none Outpt Follow Up-- PCP SUBJECTIVE/HPI: CHIEF COMPLAINT: No chief complaint on file. S/P CABGx4 No apparent hx of diabetes per chart review Bgl below Stable Insulin drip is off on exam in room We will check an add-on A1c Pressors as needed-currently on Rainer-Synephrine Propofol running In bed postop VSS NPO CT in place Remains intubated sedated Will clarify Hx once extubated No apparent history of diabetes upon chart review No family in room Spoke with team in room Type of DM: N/A Onset of DM: N/A Home DM Medication Regimen: N/A DM control (last A1c/glucose data): No results found for: HGBA1C No results found for: POCGLU Review of Systems ROS negative except for those mentioned in HPI. OBJECTIVE: Vitals: 01/11/25 1953 01/11/25 2324 01/12/25 0333 01/12/25 0821 BP: 156/73 124/67 136/69 BP Location: Right arm Right arm Right arm Patient Position: Lying Lying Lying Pulse: 79 71 72 Resp: 16 16 16 Temp: (!) 35.9 C (96.6 F) (!) 35.9 C (96.6 F) (!) 35.8 C (96.5 F) TempSrc: Temporal Temporal Temporal SpO2: 94% 96% 98% Weight: 150 lb (68 kg) Height: 5' 3 (1.6 m) Physical Exam Vitals and nursing note reviewed. Constitutional: General: She is sleeping. She is not in acute distress. Appearance: She is ill-appearing. She is not toxic-appearing. Interventions: She is sedated and intubated. HENT: Head: Normocephalic. Nose: Nose normal. Eyes: Conjunctiva/sclera: Conjunctivae normal. Cardiovascular: Rate and Rhythm: Normal rate. Pulses: Normal pulses. Pulmonary: Effort: Pulmonary effort is normal. She is intubated. Abdominal: Tenderness: There is no guarding. Skin: General: Skin is warm and dry. Coloration: Skin is pale. Findings: Bruising present. Comments: Intact incision 24 hour intake/output: Intake/Output Summary (Last 24 hours) at 01/12/2025 1310 Last data filed at 01/12/2025 1230 Gross per 24 hour Intake 1571.8 ml Output 750 ml Net 821.8 ml Diet: NPO diet Medications (as per EMR): HomeMeds: Current Outpatient Medications Medication Instructions cetirizine (ZYRTEC) 10 mg, Oral, Nightly latanoprost (Xalatan) 0.005 % ophthalmic solution 1 drop, Nightly Scheduled Meds:Scheduled Meds[1] Continuous Infusions:Continuous Meds[2] PRN Meds:PRN Meds[3] Diagnostic Workup: I reviewed pertinent Laboratory results, Radiographic results, and Other Clinical Notes at the time of today's encounter. Labs: No components found for: LABA1C No components found for: EAG Lab Results Component Value Date NA 145 01/12/2025 K 3.5 01/12/2025 CL 117 (H) 01/12/2025 CO2 18 (L) 01/12/2025 BUN 21 01/12/2025 CREATININE 0.84 01/12/2025 GLUCOSE 138 (H) 01/12/2025 CALCIUM 9.1 01/12/2025 Lab Results Component Value Date CHOL 174 01/12/2025 CHOL 221 (H) 01/09/2025 Lab Results Component Value Date TRIG 164 (H) 01/12/2025 TRIG 196 (H) 01/09/2025 Lab Results Component Value Date HDL 49 (L) 01/12/2025 HDL 51 (L) 01/09/2025 Lab Results Component Value Date LDLCALC 92 01/12/2025 LDLCALC 131 (H) 01/09/2025 No results found for: VLDL Lab Results Component Value Date CHOLHDLRATIO 4 01/12/2025 CHOLHDLRATIO 4 01/09/2025 No results found for: [id number] No results found for: TSH, I2WWUSA, X9IOJKK, THYROIDAB Radiology reportsas per the Radiologist Radiology: CT chest wo IV contrast Result Date: 01/09/2025 [facility] Name[facility] 1945 [id number] Exam Date/Time: 01/09/2025 10:16 Procedure: CT CHEST WO IV CONTRAST Ordering Provider: GONZALEZ ANDREW Reason For Exam: assess aorta prior to open heart surgery CT CHEST WITHOUT CONTRAST: CLINICAL INDICATION: assess aorta prior to open heart surgery. Coronary artery disease. Dysrhythmia. Aortic root not not adequately visualized on echocardiography TECHNIQUE: Transaxial sequence through the chest from apices through the bases at 1 mm reconstruction interval. Coronal and sagittal reconstruction images reviewed. Dose reduction was employed with automated exposure control. COMPARISON: None. FINDINGS: Aorta: As visualized in sagittal and coronal reconstruction orientation, caliber of the aorta just above the sinuses of Valsalva is at the maximum in the range of up to 3.1 cms. The upper ascending aorta measures up to 3.0 cm and the descending aorta measures 2.3 cm. There is some peripheral atherosclerotic calcification. Lungs/airways: Minor apical pleural thickening. Minor atelectasis at the bases. No consolidation No parenchymal or pleural-based nodule or mass. Pleural spaces: No pleural fluid. Heart/remaining great vessels: Normal size cardiac chambers. Coronary artery and aorta atherosclerotic calcifications. Mediastinum/Rebecca: Hiatus hernia measures up to 8 cm. No mass or enlarged lymph nodes. Chest wall and lower neck: No abnormality. Upper abdomen: No abnormality throughout the visualized portions of liver. Visualized portions of the spleen are normal. The adrenals are unremarkable. Osseous structures: Degenerative change of the thoracic spine with accentuated kyphosis. There is concavity of the superior endplate at the T12 level. 1. Normal caliber aorta measuring up to 3.1 cm with some atherosclerotic calcium 2. Coronary artery calcification 3. Hiatus hernia 4. Concavity of the superior endplate at T12 of indeterminate age. Report Dictated on Electronically Signed By: Gilmar Simmons MD Electronically Signed Date/Time: 01/09/2025 4:04 PM EDT ECG 12 lead Sinus rhythm Nonspecific repol abnormality, diffuse leads No previous ECG available for comparison Electronically Signed On 01-09-2025 14:42:36 EDT by Tom Hoang Vascular US lower extremity vein mapping for bypass bilateral Result Date: 01/09/2025 Vessel diameters as noted in the table below. No evidence of superficial thrombosis in the right lower extremity. No evidence of superficial thrombosis in the left lower extremity. Vascular US carotid artery duplex bilateral Result Date: 01/09/2025 <50% stenosis in the right internal carotid artery. Mild and heterogeneous plaque (proximal) in the right internal carotid artery. <50% stenosis in the left internal carotid artery. Mild, focal and mixed density plaque (proximal) in the left internal carotid artery. Left ICA is tortuous. Normal antegrade flow involving the right vertebral artery. Normal antegrade flow involving the left vertebral artery. XR chest 1 view Result Date: 01/09/2025 Patient Name: RITIKA SANTANA : 1945 [facility]#: [id number] Exam Date/Time: 01/09/2025 09:06 Procedure: XR CHEST 1 VIEW Ordering Provider: GONZALEZ ANDREW Reason For Exam: shortness of breath EXAMINATION: CHEST RADIOGRAPH (SINGLE VIEW AP OR PA) Clinical History: shortness of breath Comparison: None RESULT: See impression Lines, tubes, and devices: None. Lungs and pleura: Interstitial coarsening, likely chronic. Mild streaky bibasilar opacities, likely atelectasis or scarring. Calcified granuloma projecting over the peripheral right midlung. No consolidation. No pleural effusion or pneumothorax. Cardiomediastinal silhouette: Normal cardiomediastinal silhouette. Retrocardiac opacity consistent with model moderate hiatal hernia. Other: Degenerative changes of the spine. Report Dictated on Electronically Signed By: Damien Mtz MD Electronically Signed Date/Time: 01/09/2025 10:50 AM EDT History/Other: Past Medical History: Medical History[4] Past Surgical History: Surgical History[5] Allergy(ies): Allergies[6] Family History: Family History[7] Social History: Social History[8] Portions of the information within this encounter were entered using an electronic dictation system. Best attempts were made to edit/proofread the information prior to note completion. Despite the review of information, some errors may remain. If there are questions related to the information contained within the note please contact the signing physician directly. I spent 60 minutes with the pt which involved coordination of care, medical evaluation, review of records, and/or counseling of the pt regarding his/her condition/disease state/prognosis on the date of this note. [1] acetaminophen, 1,000 mg, Oral, q8h aspirin, 81 mg, Oral, Daily ceFAZolin, 2,000 mg, IntraVENous, q8h cetirizine, 10 mg, Oral, Nightly [START ON 01/13/2025] chlorhexidine, , Topical, Daily chlorhexidine, 15 mL, Mouth/Throat, BID latanoprost, 1 drop, Both Eyes, Nightly Lidocaine, 1 patch, Topical, Daily metoprolol tartrate, 12.5 mg, Oral, BID mupirocin, , Nasal, BID [START ON 01/13/2025] pantoprazole, 40 mg, IntraVENous, Daily pantoprazole, 40 mg, Oral, qAM AC polyethylene glycol (PEG) 3350, 17 g, Oral, Daily rosuvastatin, 40 mg, Oral, Daily senna-docusate sodium, 2 tablet, Oral, Nightly sodium chloride 0.9%, 5-40 mL, IntraCATHeter, q8h [2] EPINEPHrine, 0.01-0.2 mcg/kg/min insulin regular, 0.5-50 Units/hr lactated ringers, 250 mL nitroglycerin, 5-200 mcg/min phenylephrine, 10-150 mcg/min propofol, 5-50 mcg/kg/min sodium chloride, 20 mL/hr [3] PRN medications: acetaminophen OR acetaminophen, albumin human, calcium gluconate, dextrose, dextrose, EPINEPHrine, glucagon (rDNA), glucose, heparin, heparin, ipratropium-albuterol, lactated ringers, magnesium hydroxide, magnesium sulfate OR magnesium sulfate, morphine sulfate OR morphine sulfate, nitroglycerin, nitroglycerin, ondansetron ODT OR ondansetron, ondansetron ODT OR ondansetron, oxyCODONE OR oxyCODONE, phenylephrine, polyethylene glycol (PEG) 3350, potassium chloride OR potassium chloride OR potassium chloride, [START ON 01/13/2025] potassium chloride CR, sodium chloride 0.9% [4] Past Medical History: Diagnosis Date Essential hypertension GERD (gastroesophageal reflux disease) Macular degeneration Paroxysmal atrial fibrillation (HCC) [5] Past Surgical History: Procedure Laterality Date BASAL CELL CARCINOMA EXCISION BREAST CYST EXCISION CATARACT EXTRACTION, BILATERAL [6] Allergies Allergen Reactions Ciprofloxacin Patient had cdiff with this antibiotic [7] Family History Problem Relation Name Age of Onset ALS Mother Hypertension Father Coronary artery disease Brother [8] Social History Tobacco Use Smoking status: Never Substance Use Topics Alcohol use: Never Drug use: Never Images from the original note were not included. [facility]: Critical Care Consultation Note Date: 01/12/25 PATIENT NAME: Ritika Santana : 1945 (79 y.o.) Reason for Consult: Critical Care & Vent Management Court Abstractor: Dr. Ruth - [place] HPI: 79-year-old female with past medical history of macular degeneration, GERD, paroxysmal A-fib, hypertension, presented to the ED at [facility] with complaints of worsening shortness of breath. Per patient she has always had shortness of breath but it has started to get worse recently. She also noted a dull ache radiating feeling sporadically at times that started to happen more frequently. She said these episodes initially started off lasting only a couple minutes but one of the last ones happened about 30 minutes. Cardiac enzymes were elevated in the ED and cardiology was consulted. Of note she does follow with cardiology as an outpatient for her proximal A-fib and she had called prior to her ED visit on 01/07. Patient mated with NSTEMI and cath was scheduled. Cardiac cath was completed 01/08/2025 which showed multivessel CAD involving left main She was transferred to [facility] for surgical evaluation. Surgery was discussed and she consented. She was taken to the operating room on 01/12/[address] Coreas Surgery: 01/12/25: s/p CABGx4 (Formal report pending), FAITH MONCADA, SULLY with Dr. Coreas Interval History: 01/12/25: POD #0: Patient arrived to the unit, intubated and sedated. Surgical hand off completed below. Surgery Hand Off: Arrival Time in CTVICU: 1300 Complications/Pertinent Events: Last Paralytic:1000 Medications given in route: Gtts OR report Propofol: 20mcg/kg/min Insulin: off Amicar: 29 Current gtts upon arrival Propofol: 20mcg/kg/min Insulin: off Amicar: 29 Devices: Epicardial wires: yes [x] no [] Blood Transfusions Intra Op: yes [] no [x] CellSaver: Yes Vital Signs including Cardiac Numbers (if indicated) at Conclusion of Hand-off OR CTVICU CO No [place] CI CVP SVR PAP Additional Interventions/Misc during Handoff Required backup pacing for a period of time, arrived to unit in NSR. Review of Systems Unable to perform ROS: Intubated Allergies: Ciprofloxacin Past Medical History: has a past medical history of Essential hypertension, GERD (gastroesophageal reflux disease), Macular degeneration, and Paroxysmal atrial fibrillation (HCC). Past Surgical History: has a past surgical history that includes Excision basal cell carcinoma; Cataract extraction, bilateral; and Breast cyst excision. Social History: reports that she has never smoked. She does not have any smokeless tobacco history on file. She reports that she does not drink alcohol and does not use drugs. Family History: family history includes ALS in her mother; Coronary artery disease in her brother; Hypertension in her father. Medications: Prior to Admission medications Medication Sig Start Date End Date Taking? Authorizing Provider latanoprost (Xalatan) 0.005 % ophthalmic solution Administer 1 drop into both eyes Nightly. Yes Historical Provider, cetirizine (ZyrTEC) 10 MG tablet Take 10 mg by mouth Nightly. Historical Provider, apixaban (Eliquis) 5 MG tablet Take 5 mg by mouth 2 times daily. 01/09/25 Historical Provider, benazepril (Lotensin) 20 MG tablet Take 20 mg by mouth daily. 01/09/25 Historical Provider, dilTIAZem CD (Cardizem CD) 120 MG 24 hr capsule Take 120 mg by mouth daily. 01/09/25 Historical Provider, esomeprazole (NexIUM) [address] capsule Take 20 mg by mouth every morning (before breakfast). Do not open capsule. 01/09/25 Historical Provider, hydroCHLOROthiazide (HYDRODiuril) 25 MG tablet Take 25 mg by mouth daily. 01/09/25 Historical Provider, potassium chloride CR (Klor-Con M20) 20 MEQ ER tablet Take 20 mEq by mouth daily. Do not crush or chew. 01/09/25 Historical Provider, Probiotic Product (PROBIOTIC 10 ULTRA STRENGTH PO) Take 1 capsule by mouth daily. 01/09/25 Historical Provider, Objective: BP 136/69 (BP Location: Right arm, Patient Position: Lying) Pulse 72 Temp (!) 35.8 C (96.5 F) (Temporal) Resp 16 Ht 5' 3 (1.6 m) Wt 150 lb (68 kg) SpO2 98% BMI 26.57 kg/m Intake/Output Summary (Last 24 hours) at 01/12/2025 1032 Last data filed at 01/12/2025 1021 Gross per 24 hour Intake 1347.2 ml Output 75 ml Net 1272.2 ml Physical Exam Vitals reviewed. Constitutional: Interventions: She is sedated and intubated. HENT: Mouth/Throat: Comments: ETT in place Neck: Vascular: No JVD. Trachea: Trachea normal. Comments: Central line. Cardiovascular: Rate and Rhythm: Normal rate and regular rhythm. Pulses: Radial pulses are 2+ on the right side and 2+ on the left side. Heart sounds: Normal heart sounds, S1 normal and S2 normal. Pulmonary: Effort: She is intubated. Breath sounds: Decreased breath sounds present. Abdominal: General: Bowel sounds are absent. Comments: Chest tubes. Genitourinary: Comments: Swift catheter to straight drain Musculoskeletal: Right lower leg: No edema. Left lower leg: No edema. Skin: Findings: Bruising and ecchymosis present. Comments: Surgical dressing dry and intact, SAMUEL wrap on LLE (EVH). Diagnostics: Reviewed in [facility] ECHO 01/11/25: Interpretation Summary Left Ventricle: Not well visualized. Left ventricle size is normal. Normal wall thickness. Normal left ventricular systolic function. The EF by visual approximation is 55%. EF by 2D Simpsons Biplane is 63%. Normal wall motion. Normal diastolic function. Normal left ventricular filling pressure. Right Ventricle: Right ventricle size is normal. Normal systolic function. Aortic Valve: Mild (1+) regurgitation. Tricuspid Valve: RVSP is 27 mmHg. No significant valvular abnormalities. Echo Findings Left Ventricle Not well visualized. Left ventricle size is normal. Normal wall thickness. Normal left ventricular systolic function. The EF by visual approximation is 55%. EF by 2D Simpsons Biplane is 63%. Normal wall motion. Normal diastolic function. Normal left ventricular filling pressure. Right Ventricle Right ventricle size is normal. Normal systolic function. Left Atrium Left atrium size is normal. Left atrium size is normal (LA volume index 16-34 mL/m2).LA Vol Index A/L is 24 mL/m2. Interatrial Septum No interatrial shunt visualized on color Doppler. Right Atrium Right atrium size is normal. Aortic Valve Thickened cusps. Calcified cusps. Mild (1+) regurgitation. No stenosis. Mitral Valve Calcified leaflets. Mild (1+) regurgitation. No stenosis noted. Tricuspid Valve Valve structure is normal. Mild (1+) regurgitation. RVSP is 27 mmHg. Pulmonic Valve Valve structure is normal. Mild (1+) regurgitation. Pulmonary Artery Pulmonary hypertension not present. Aorta Normal sized sinuses of Valsalva and ascending aorta. IVC/Hepatic Veins IVC diameter is normal and decreases greater than 50% during inspiration; therefore the estimated right atrial pressure is normal (~3 mmHg). Pericardium No pericardial effusion. Labs: Reviewed in EMR BMP: Recent Labs 01/10/25 0421 01/11/25 0101 01/12/25 0345 NA 141 139 139 K 3.7 4.0 3.9 CL 109* 108* 108* CO2 23 19* 21* BUN 18 26* 24* CREATININE 0.75 0.85 0.80 CALCIUM 9.2 8.9 9.4 PHOS -- -- 4.8* CBC: Recent Labs 01/10/25 0421 01/11/25 0101 01/12/25 0345 WBC 5.7 6.0 5.5 HGB 12.7 12.6 13.1 HCT 39.8 38.3 39.9 PLT 228 213 222 MCV 88.8 88.5 89.3 RDW 14.2 14.1 14.1 INR: Recent Labs 01/09/25 1502 01/12/25 0345 INR 1.0 1.1 Assessment: MVCAD s/p CABGx 4 HTN GERD Afib Macular degeneration Post operative Pulm Management: Normal Post-operative Course Acute blood loss anemia/consumptive thrombocytopenia Plan: - Sugamadex x1 - Wean sedation as able, goal RASS -1 to 0 - SAT/SBT when appropriate-> extubate - STAT CXR and EKG - Review labs, repeat as needed - Hemodynamic goals: CI >2.0, SBP 90-130 mmHg, MAP 60-75 - PRN Hypertension Nitro gtt -PRN Hypotension CI >2.0 euvolemic with low SVR- Rainer gtt CI <2.0 euvolemic - Epinephrine gtt - Temp pacing wires/mode: V-wires to backup - Chest tubes: no air leak or fluctuation noted, suction -20 - Cefazolin - surgical prophy for 5 doses total - Wean to Extubation: Arrival Time in unit: 1300 - Vent: ACVC+, TV 6ml/kg/min, rate 12, fio2 100% PEEP 8 VAP protocol: HOB >30 degrees; peridex BID - Insulin gtt; per endo/protocol - GI prophy: Protonix IV daily Critical Care time spent 35 minutes. The time involved in the performance of this care was exclusive of separately billable procedures, teaching time and treating other patients. The time was spent personally by myself for the following activities: examination of the patient, ordering and/or performing treatment, reviewing the laboratory and radiographic studies, and if applicable, ventilator management and blood gas interpretation. Patient treatment plan and plan of care discuss with Dr. Manolo Matthew Cosigned by Manolo Huff MD at 01/12/2025 5:07 PM EDT Associated attestation - Manolo Huff MD - 01/12/2025 5:07 PM EDT I have personally performed a face to face diagnostic evaluation on this patient today on 01/12/25. Labs, imaging studies, and electronic medical record notes on [facility] have been reviewed by me. This note documented and discussed by the []wildlife conservation officer []Fellow [x] CONSTANCE reflects my history, exam and medical decision making. I have reviewed and agree with the care plan. Changes were made in the orders as necessary. ROS documentation was reviewed and negative unless otherwise stated in the HPI. My history, exam, assessment and plan are as follows: All reflect current medical decision making from 01/12/25. Physical Exam listed was completed in entirely on 01/12/25 and is unchanged except where noted. Critical care time spent excluding separately billable procedures is 40 minutes. Sedated, intubated, pupils symmetric Heart RRR Lungs symmetric clear anteriorly Abd soft MVCAD, Afib 6/2 s/p CABG x 4 and LAAL Post op vent management NAGMA with hyperchloremia Anemia, thrombocytopenia expected post op On propofol for sedation, wean as tolerated CXR with adequate position of ETT, OGtube, chest tubes, right IJ central line SBT later today as tolerated Transfuse prn documented in this encounter [facility] 01-22-2025 Note Referral placed to [facility] per [facility] request. Await review and response regarding ability to accept. TCC notified. [facility] 01-22-2025 Note Follow-up discussion had at the bedside with Patient and Spouse regarding discharge plan. They requested a referral be made to [facility]. Referral requested in [facility]. [facility] 01-21-2025 Note Referral placed to [facility] via [facility] per TCC request. [facility] 01-19-2025 Note Referral placed to [facility] via [facility] per TCC request. Await review and response regarding ability to accept. TCC notified. [facility] 01-12-2025 Note [facility] 01-12-2025 Note [facility] 01-12-2025 Note [facility] 01-09-2025 Note [facility] Medical Records Department [address] [place] [id number] Discharge Summary 01/09/25911 MR#: [id number] Acct: [id number] Name: RITIKA SANTANA Rep #: [id number] : 1945 79 From: Danial Salazar DO PCP: ERIN GRANT Status:DIS IN Location: [place] [id number] Providers Date of Admission: 01/07/25 Date of Discharge: 01/08/25 Primary Care Physician: ERIN GRANT Consultations 01/07/25 16:09 Consult: Cardiology Routine Consulting Provider: Richard White Reason for Consult: Chest Pain EMERGENT Consult: No MD Notified: Yes Date Notified: 01/07/25 Time Notified: 13:03 Method of Notification: ED Physician Initiated Reason For Visit: NSTEMI Diagnosis Discharge Diagnosis (1) NSTEMI, initial episode of care: Status: Acute Code(s): I21.4 - Non-ST elevation (NSTEMI) myocardial infarction (2) Paroxysmal atrial fibrillation: Status: Acute Code(s): I48.0 - Paroxysmal atrial fibrillation (3) Essential hypertension: Status: Acute Code(s): I10 - Essential (primary) hypertension Medications at Discharge Home Medications cetirizine 10 mg capsule 10 mg PO DAILY allergies 03/29/14 esomeprazole magnesium 20 mg capsule,delayed release (Nexium) 20 mg PO DAILY heartburn 10/24/23 potassium chloride 20 mEq tablet,extended release 20 meq PO DAILY #90 TABLETS 10/31/23 hydrochlorothiazide 25 mg tablet 25 mg PO DAILY #90 TABLETS 04/24/24 diltiazem HCl 120 mg capsule,extended release 24 hr See Rx Instructions .Route .COMPLEX #90 caps 07/23/24 apixaban 5 mg tablet (Eliquis) 5 mg PO BID afib #180 tabs 11/04/24 benazepril 20 mg tablet See Rx Instructions .Route .COMPLEX #90 tabs 01/01/25 Bacillus coagulans 10 billion cell capsule,delayed release (Probiotic (B. coagulans)) 10 cell PO DAILY probiotic 01/07/25 latanoprost (PF) 0.005 % eye drops 1 drp ophthalmic (eye) QDAY ocular pressure 01/07/25 Hospital Course Operations None Procedures Cardiac catheterization, EKG, Transthoracic echo and - (Chest x-ray) Summary of Care Provided Minutes Spent on Discharge: 35 Hospital Course: Patient is a 79-year-old female who presented to [facility] ED on 01/07/2025 with worsening shortness of breath with exertion and fatigue. Hospital course as noted below. Patient transferred to [facility] on 01/08. 1. NSTEMI type I with severe multivessel disease ??? Cardiology followed. Presented with worsening shortness of breath with exertion and fatigue for about 1 week. Troponin trend on admit 656 > 617 > 573. EKG showed normal sinus rhythm but subtle T wave inversions in inferior leads. Echo showed EF 45 to 50%, mildly reduced previous, no other abnormalities noted. Left heart cath with severe multivessel disease noted. Per cardiology, recommendation was for transfer for CABG evaluation. Transferred to [facility] on 01/09. Continue heparin drip along with home medications of aspirin, statin, Toprol, lisinopril and hydrochlorothiazide. 2. Paroxysmal A-fib ??? Stable in normal sinus rhythm since admission. Continue home Toprol. On heparin drip as above. 3. Hypertension ??? Continue home medications as above. 4. GERD ??? Continue home PPI. Total clinical time spent by myself addressing the patient's medical issues, reviewing all the data, and collaborating with patient's care team: 35 minutes. Physical Exam Const alert, oriented x3, no apparent distress and average body habitus General Appearance: cooperative and comfortable HEENT normocephalic, head/scalp atraumatic, hearing grossly normal bilaterally, nasal mucous membranes and turbinates normal and moist oral mucous membranes Eyes PERRL, EOMs intact bilaterally and conjunctivae normal Neck full ROM Chest inspection of chest normal Resp normal respiratory effort, normal air movement, no use of accessory muscles and clear to auscultation bilaterally Cardio regular rate, regular rhythm, no murmurs and peripheral pulses 2+ throughout GI normal to inspection, nondistended, normoactive bowel sounds, soft to palpation, non-tender and non- distended Back/Spine normal ROM Extremity normal to inspection, full ROM and no pedal edema Skin no rashes or lesions noted Psych mental status grossly normal Weight / BMI Weight Weight: 69.672 kg Body Mass Index (BMI) 27.1 ABG / Lab / Microbiology Data 01/08/25 06:10 01/08/25 06:10 Laboratory: Laboratory Results - last 24 hr 01/08/25 13:18: APTT 28.4 01/08/25 20:00: APTT 48.2 H Radiography Diagnostic Testing: Radiology Impression Echocardiogram 01/07/25 16:09 Interpretation Summary The estimated ejection fraction is 45-50 %. In comparison to previous echo mildly reduced LV systolic function. No significant valvular abnormality No pericardial effusion. (more content not included)... [facility] 01-09-2025 Note [facility] 01-09-2025 History and physical note Images from the original note were not included. [facility] Medical Group: Cardiothoracic Surgery H&P PATIENT NAME: Ritika Santana : 1945 (79 y.o.) TODAY'S DATE: 01/09/2025 DATE OF ADMISSION: 01/09/2025 1:06 AM Subjective: CC: Shortness of breath HPI: 79-year-old female with past medical history of macular degeneration, GERD, paroxysmal A-fib, hypertension, presented to the ED at [facility] with complaints of worsening shortness of breath. Per patient she has always had shortness of breath but it has started to get worse recently. She also noted a dull ache radiating feeling sporadically at times that started to happen more frequently. She said these episodes initially started off lasting only a couple minutes but one of the last ones happened about 30 minutes. Cardiac enzymes were elevated in the ED and cardiology was consulted. Of note she does follow with cardiology as an outpatient for her proximal A-fib and she had called prior to her ED visit on 01/07. Patient mated with NSTEMI and cath was scheduled. Cardiac cath was completed 01/08/2025 which showed multivessel CAD involving left main She was transferred to [facility] for surgical evaluation. Ms. Santana lives at home with her . She has a daughter and son that live in the area around her back at [place]. She denies any tobacco use alcohol use or illegal drug use. She is still able to complete all ADLs as needed. She is still driving and spends frequent time outside working on her garden. A complete ROS is documented below TTE 01/08/2025 LV: Normal left ventricle the estimated ejection fraction is 45 to 50% RV: Normal right ventricle Mitral valve: There is mild mitral annular calcification. Trivial mitral valve insufficiency. Tricuspid valve: Normal tricuspid valve. Aortic valve:Trisinus/trileaflet AV Inna valve: The pulmonic valve is not well-visualized. Great vessels the aortic root is not well-visualized. Pericardium/pleural: No pericardial effusion. 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 HENT: Negative for congestion and dental problem. Eyes: Negative for pain, redness and visual disturbance. Respiratory: Negative for cough, choking, chest tightness, shortness of breath and wheezing. Gastrointestinal: Negative for abdominal distention, abdominal pain, blood in stool, constipation, diarrhea, nausea and vomiting. Endocrine: Negative for cold intolerance and heat intolerance. Genitourinary: Negative for difficulty urinating and frequency. Musculoskeletal: Negative for arthralgias, back pain, gait problem and joint swelling. Skin: Negative for color change, pallor, rash and wound. Allergic/Immunologic: Negative for immunocompromised state. Neurological: Negative for dizziness, seizures, syncope, speech difficulty, weakness, light-headedness and numbness. Hematological: Does not bruise/bleed easily. Psychiatric/Behavioral: Negative for confusion, decreased concentration and sleep disturbance. The patient is not nervous/anxious. Allergies: Ciprofloxacin Past Medical History: has a past medical history of Essential hypertension, GERD (gastroesophageal reflux disease), Macular degeneration, and Paroxysmal atrial fibrillation (HCC). Past Surgical History: has a past surgical history that includes Excision basal cell carcinoma; Cataract extraction, bilateral; and Breast cyst excision. Social History: reports that she has never smoked. She does not have any smokeless tobacco history on file. She reports that she does not drink alcohol and does not use drugs. Family History: family history includes ALS in her mother; Coronary artery disease in her brother; Hypertension in her father. Medications: Prior to Admission medications Medication Sig Start Date End Date Taking? Authorizing Provider latanoprost (Xalatan) 0.005 % ophthalmic solution Administer 1 drop into both eyes Nightly. Yes Historical Provider, apixaban (Eliquis) 5 MG tablet Take 5 mg by mouth 2 times daily. Historical Provider, benazepril (Lotensin) 20 MG tablet Take 20 mg by mouth daily. Historical Provider, cetirizine (ZyrTEC) 10 MG tablet Take 10 mg by mouth Nightly. Historical Provider, dilTIAZem CD (Cardizem CD) 120 MG 24 hr capsule Take 120 mg by mouth daily. Historical Provider, esomeprazole (NexIUM) [address] capsule Take 20 mg by mouth every morning (before breakfast). Do not open capsule. Historical Provider, hydroCHLOROthiazide (HYDRODiuril) 25 MG tablet Take 25 mg by mouth daily. Historical Provider, potassium chloride CR (Klor-Con M20) 20 MEQ ER tablet Take 20 mEq by mouth daily. Do not crush or chew. Historical ProviderMD Probiotic Product (PROBIOTIC 10 ULTRA STRENGTH PO) Take 1 capsule by mouth daily. Historical ProviderMD Objective: Vitals: BP: 121/67, MAP (mmHg): 85, BP Method: Automatic Heart Rate: 85 Resp: 20 Temp: 36.3 C (97.4 F), Temp Source: Temporal No intake or output data in the 24 hours ending 01/09/25 0842 Physical Exam Constitutional: General: She is not in acute distress. Appearance: Normal appearance. HENT: Head: Normocephalic and atraumatic. Right Ear: External ear normal. Left Ear: External ear normal. Nose: Nose normal. Mouth/Throat: Lips: Watkins. Dentition: Normal dentition. Tongue: No lesions. Tongue does not deviate from midline. Eyes: General: Lids are normal. Conjunctiva/sclera: Conjunctivae normal. Neck: Thyroid: No thyroid mass or thyromegaly. Trachea: Trachea normal. Cardiovascular: Rate and Rhythm: Normal rate and regular rhythm. Pulses: No decreased pulses. Heart sounds: Normal heart sounds. Heart sounds not distant. No murmur heard. No friction rub. Pulmonary: Effort: Pulmonary effort is normal. No accessory muscle usage. Breath sounds: Normal breath sounds and air entry. No stridor or decreased air movement. Abdominal: General: Bowel sounds are normal. Palpations: There is no mass. Tenderness: There is no abdominal tenderness. Hernia: No hernia is present. Musculoskeletal: Cervical back: Full passive range of motion without pain. No rigidity or crepitus. No pain with movement. Right lower leg: No edema. Left lower leg: No edema. Skin: General: Skin is warm. Capillary Refill: Capillary refill takes less than 2 seconds. Findings: No lesion, rash or wound. Comments: Color normal for ethnicity Neurological: Mental Status: She is alert. Psychiatric: Attention and Perception: Attention normal. Mood and Affect: Mood and affect normal. Behavior: Behavior is cooperative. Cognition and Memory: She does not exhibit impaired recent memory or impaired remote memory. Judgment: Judgment normal. Assessment: MVCAD HTN GERD Afib Macular degeneration Plan: Start ASA, statin, BB, Heparin gtt Hold home: ACEi, Nitro sublinqual PRN for CP - please notify provider if patient is having constant CP Check - CXR, CT chest w/o con, labs, Carotids, Vein mapping, MRSA swab -may need Repeat ECHO at our facility CD to get uploaded into PACs of Cath Vitals - Q4 Intake and output qshift Progressive care - tele Will discuss with Dr. Coreas - supervisor electron tube processing CT Surgeon Home medications: Cetirizine 10mg capsule daily Nexium 20 mg p.o. daily Potassium chloride 20 meq daily Hydrochlorothiazide 25 mg tablet daily Diltiazem HCl 120 mg extended release daily Apixaban 5 mg twice daily Benzepril 20 mg tablet Probiotic daily Latanoprost (PF) 0.005% eye drops - 1 drop daily Personally Reviewed: []Epic notes []Radiology studies []Labs []EKG [x]Other: Transfer records A total of 41 minutes were spent between the [id number] encounter, physical exam, reviewing the medical history, coordinating the patient's care, counseling/educating the patient, ordering medications/test/procedures, interpreting results and documenting clinical information in the patients electronic health record on the day of the encounter. The patient was seen and examined independently and relevant data reviewed by myself. A full chart review was performed. Attending Note I have reviewed the documentation above obtained and documented by the CONSTANCE. The following comments revise or confirm relevant machuca components. Patient seen and examined on 01/09/25. Agree with above unless otherwise noted below. As above, 79F from [place] with PMH of macular degeneration, GERD, pAF on eliquis, HTN, presenting to [facility] with SOB and diagnosed with NSTEMI. Denies chest pain or SOB currently. [facility] demonstrates MVCAD involving LM. She is very active at home. She meets indication for CABG. Workup still pending as above. Plan will be for use of BLANCO and additional saphenous vein for conduit. Will also place LAAC at time of surgery given pAF history, currently in sinus rhythm. Discussed with the patient and her at bedside. She is tentatively scheduled for CABG/LAAC on 01/12/25, first start. STAFF PHYSICIAN: Lacho Coreas MD DATE OF SERVICE: January 09, 2025 TIME OF SERVICE: 3:23 PM documented in this encounter [facility] 01-08-2025 Progress note Note Date/Time January 08, 2025 2:05pm [facility] Medical Records Department [address] [place] [address] Progress Note - Cardiology 01/08/25 1359 MR#: [id number] Acct: [id number] Name: RITIKA SANTANA Rep #:[id number] : 1945 79 From: Richard White MD PCP: ERIN GRANT Status:ADM IN Location: [place] [address] Subjective Subjective Seen and evaluated at bedside along with the family members and nursing staff Post cardiac catheterization Right groin no hematoma. Comfortable lying in bed. Objective Data Vital Signs: Vital Signs Temp Pulse Resp BP Pulse Ox O2 Del Method 97.6 F L 89 16 124/64 H 93 Room Air 01/08/25 08:16 01/08/25 13:00 01/08/25 08:16 01/08/25 13:00 01/08/25 13:00 01/08/25 13:00 Oxygen Delivery Method Room Air Weight: 153 lb 9.6 oz Body Mass Index (BMI) 27.1 Intake & Output: Intake and Output for Last 24 Hours 01/06/25 01/07/25 01/08/25 23:59 23:59 23:59 Intake Total 73.87 / 313.87 560.87 / 560.87 Balance 73.87 / 313.87 560.87 / 560.87 Lab / Micro Data 01/08/25 06:10 01/08/25 06:10 Labs: Laboratory Results - last 24 hr 01/07/25 17:00: Troponin T Hi Sens 4Hr 573 H* 01/07/25 18:35: APTT 62.2 H 01/08/25 00:41: APTT 60.8 H 01/08/25 06:10: WBC 5.6, RBC 4.44, Hgb 13.0, Hct 39.5, MCV 89.0, MCH 29.3, MCHC 32.9, RDW Std Deviation 45.5 H, RDW Coeff of Wendy 14.1, Plt Count 236, MPV 9.5, Immature Gran % (Auto) 0.200, Neut % (Auto) 51.0, Lymph % (Auto) 36.3, Hale % (Auto) 9.1, Eos % (Auto) 2.5, Baso % (Auto) 0.9, Absolute Neuts (auto) 2.9, Absolute Lymphs (auto) 2.04, Nucleated RBC % 0, APTT 72.1 H, Sodium 141, Potassium 3.9, Chloride 106, Carbon Dioxide 22.4, Anion Gap 12, BUN 17, Creatinine 0.72, Estim Creat Clear Calc 54.26, Est GFR (MDRD) Non-Af 85, BUN/Creatinine Ratio 24.0 H, Glucose 107 H, Calcium 9.2, Magnesium 2.0 01/08/25 13:18: APTT 28.4 Cardiology Labs/Tests 01/07/25 18:35: APTT 62.2 H 01/08/25 00:41: APTT 60.8 H 01/08/25 06:10: WBC 5.6, RBC 4.44, Hgb 13.0, Hct 39.5, MCV 89.0, MCH 29.3, MCHC 32.9, Plt Count 236, MPV 9.5, Immature Gran % (Auto) 0.200, Neut % (Auto) 51.0, Lymph % (Auto) 36.3, Hale % (Auto) 9.1, Eos % (Auto) 2.5, Baso % (Auto) 0.9, Absolute Neuts (auto) 2.9, Nucleated RBC % 0, APTT 72.1 H, Sodium 141, Potassium3.9, Chloride 106, Carbon Dioxide 22.4, Anion Gap 12, BUN 17, Creatinine 0.72, Est GFR (MDRD) Non-Af 85, BUN/Creatinine Ratio 24.0 H, Glucose 107 H, Calcium 9.2, Magnesium 2.0 01/08/25 13:18: APTT 28.4 Rhythm: EKG: ECHO: Stress Test: Cardiac Cath: PCI: CT Surgery: Holter monitor: EPS: PPM: CXR: Chest CT Scan: Radiography Diagnostic Testing: Radiology Impression Echocardiogram 01/07/25 16:09 Interpretation Summary The estimated ejection fraction is 45-50 %. In comparison to previous echo mildly reduced LV systolic function. No significant valvular abnormality No pericardial effusion. Ordering Physician: [place] Damico Referring Physician: Becky Mcknight Performed By: Kaite Zaragoza, RDCS, RVT Physical Exam Cardio Cardio Narrative: Cardiac rhythm is sinus rhythm Cardiac exam S1-S2 is regular Chest exam is clear to auscultation bilateral. Examination lower extremity no lower extremity edema. Assessment & Plan Assessment/Plan (1) NSTEMI, initial episode of care: (2) Paroxysmal atrial fibrillation: (3) Essential hypertension: PLAN: Cardiac care plan; 79-year-old patient underwent cardiac catheterization today Her presentation is symptoms of progressive shortness of breath Patient had history of hypertension History of paroxysmal atrial fibrillation GERD Has ongoing symptoms of which are described as shortness of breath on exertion With diffuse chest pain radiating to both shoulder and to the back She has evaluation by echocardiogram which showed mildly reduced LV systolic function Ejection fraction the range of 45-50% She been seen by the cardiology team over here with Dr. 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 She has a very good distal targets to LAD diagonal OM 2 and distal RCA. Cardiac care plan discussed with the C[facility]/at [facility] And plan will be to start on the medical therapy with aspirin, statin, SAMUEL inhibitor lisinopril, beta-clark metoprolol XL 25 mg In addition to heparin. Patient has paroxysmal A-fib And once she transfer she will be evaluated for CABG I discussed in detail the cardiac care plan to the patient as well as to the family and nursing staff here at [facility]. Richard White MD,[facility] 01/08/25 1405 <Electronically signed by Richard White MD> Cosigner Signature (if applicable): CC: ~ Signed [facility] Work Phone: [phone] Progress note Author Danial Salazar [facility] Note Date/Time January 08, 2025 2:00p [facility] Medical Records Department [address] [place] [address] Progress Note - Hospitalist 01/08/25 1038 MR#: [id number] Acct: [id number] Name: RITIKA SANTANA Rep #:[id number] : 1945 79 From: Danial hernandez DO PCP: ERIN GRANT Status:ADM IN Location: [place] [address] Reason for Visit Reason for Visit: Diagnoses Non-ST elevation (NSTEMI) myocardial infarction (01/07/25) Subjective Subjective Saw patient at bedside with afternoon as she was down having her heart cath donethis morning. Several family members were present. Per cardiology, patient wasfound to have triple-vessel disease and plan is for transfer to [facility] for CABG evaluation. Patient was laying back comfortably in bed and had no chest pain at this time at rest. She denied any other acute concerns at this time. Objective Data Objective Data Vital Signs: Vital Signs Temp Pulse Resp BP Pulse Ox O2 Del Method 97.6 F L 88 16 142/68 H 96 Room Air 01/08/25 08:16 01/08/25 08:16 01/08/25 08:16 01/08/25 08:16 01/08/25 08:16 01/08/25 08:16 Oxygen Delivery Method Room Air Weight: 69.672 kg Body Mass Index (BMI) 27.1 Intake & Output: Intake and Output for Last 24 Hours 01/06/25 01/07/25 01/08/25 23:59 23:59 23:59 Intake Total 73.87 / 313.87 320.87 / 320.87 Balance 73.87 / 313.87 320.87 / 320.87 Lab / Micro Data 01/08/25 06:10 01/08/25 06:10 Labs: Laboratory Results - last 24 hr 01/07/25 11:00: WBC 5.8, RBC 4.66, Hgb 13.6, Hct 41.6, MCV 89.3, MCH 29.2, MCHC 32.7, RDW Std Deviation 46.5 H, RDW Coeff of Wendy 14.4, Plt Count 247, MPV 9.8, Immature Gran % (Auto) 0.200, Neut % (Auto) 60.4, Lymph % (Auto) 26.7, Hale % (Auto) 10.3 H, Eos % (Auto) 1.5, Baso % (Auto) 0.9, Absolute Neuts (auto) 3.5, Absolute Lymphs (auto) 1.56, Nucleated RBC % 0, PT 14.2, INR 1.1, APTT 32.6, D-Dimer Quant (PE/DVT) < 0.27 L, Sodium 138, Potassium 4.3, Chloride 104, Carbon Dioxide 20.3 L, Anion Gap 14, BUN 20 H, Creatinine 0.88, Estim Creat Clear Calc 49.33 L, Est GFR (MDRD) Non-Af 67, BUN/Creatinine Ratio 22.7 H, Glucose 101 H, Calcium 9.5, Troponin T High Sens 656 H*, NT pro BNP II 1762 01/07/25 13:01: Troponin T Hi Sens 2 Hr 617 H* 01/07/25 17:00: Troponin T Hi Sens 4Hr 573 H* 01/07/25 18:35: APTT 62.2 H 01/08/25 00:41: APTT 60.8 H 01/08/25 06:10: WBC 5.6, RBC 4.44, Hgb 13.0, Hct 39.5, MCV 89.0, MCH 29.3, MCHC 32.9, RDW Std Deviation 45.5 H, RDW Coeff of Wendy 14.1, Plt Count 236, MPV 9.5, Immature Gran % (Auto) 0.200, Neut % (Auto) 51.0, Lymph % (Auto) 36.3, Hale % (Auto) 9.1, Eos % (Auto) 2.5, Baso % (Auto) 0.9, Absolute Neuts (auto) 2.9, Absolute Lymphs (auto) 2.04, Nucleated RBC % 0, APTT 72.1 H, Sodium 141, Potassium 3.9, Chloride 106, Carbon Dioxide 22.4, Anion Gap 12, BUN 17, Creatinine 0.72, Estim Creat Clear Calc 54.26, Est GFR (MDRD) Non-Af 85, BUN/Creatinine Ratio 24.0 H, Glucose 107 H, Calcium 9.2, Magnesium 2.0 Radiography Diagnostic Testing: Radiology Impression Chest X-Ray 01/07/25 11:22 IMPRESSION: Mild cardiomegaly. The lungs are clear. Moderate-sized hiatal hernia. [facility] Physical Exam Const alert, oriented x3, no apparent distress and average body habitus General Appearance: cooperative and comfortable HEENT normocephalic, head/scalp atraumatic, hearing grossly normal bilaterally, nasal mucous membranes and turbinates normal and moist oral mucous membranes Eyes PERRL, EOMs intact bilaterally and conjunctivae normal Neck full ROM Chest inspection of chest normal Resp normal respiratory effort, normal air movement, no use of accessory muscles and clear to auscultation bilaterally Cardio regular rate, regular rhythm, no murmurs and peripheral pulses 2+ throughout GI normal to inspection, nondistended, normoactive bowel sounds, soft to palpation,non-tender and non-distended Back/Spine normal ROM Extremity normal to inspection, full ROM and no pedal edema Skin no rashes or lesions noted Psych mental status grossly normal Assessment & Plan Assessment/Plan (1) NSTEMI, initial episode of care: PLAN: Plan Patient is a 79-year-old female who presented to [facility] ED on 01/07/2025 with worsening shortness of breath with exertion and fatigue. 1. NSTEMI type I with severe multivessel disease ? Cardiology following. Presented with worsening shortness of breath with exertion and fatigue for about 1 week. Troponin trend on admit 656 > 617 > 573. EKG showed normal sinus rhythm but subtle T wave inversions in inferior leads. Echo showed EF 45 to 50%, mildly reduced previous, no other abnormalities noted. Left heart cath with severe multivessel disease noted. Per cardiology, plan isfor transfer to [facility] for CABG evaluation. Continue heparin drip along with home medications of aspirin, statin, Toprol, lisinopril and hydrochlorothiazide. 2. Paroxysmal A-fib ? Stable in normal sinus rhythm since admission. Continue home Toprol. On heparin drip as above. 3. Hypertension ? Continue home medications as above. 4. GERD ? Continue home PPI. DVT prophylaxis: Not indicated, on heparin drip CODE STATUS: Full code, verified Expected disposition: Transfer to [facility] Total clinical time spent by myself addressing the patient's medical issues, reviewing all the data, and collaborating with patient's care team: 35 minutes. Charges/Coding Visit Charges Inpatient E&M: 12293 Subs Hosp L2 01/08/25 1400 <Electronically signed by Danial Salazar DO> Cosigner Signature (if applicable): CC: ~ Signed [facility] Work Phone: 1([phone] 382-365005-29-2025 Progress note [facility] Medical Records Department [address] [place] [address] Progress Note - Cardiology 01/08/25 1359 MR#: [id number] Acct: [id number] Name: RITIKA SANTANA Rep #:[id number] : 1945 79 From: Richard White MD PCP: ERIN GRANT Status:ADM IN Location: [place] [address] Subjective Subjective Seen and evaluated at bedside along with the family members and nursing staff Post cardiac catheterization Right groin no hematoma. Comfortable lying in bed. Objective Data Vital Signs: Vital Signs Temp Pulse Resp BP Pulse Ox O2 Del Method 97.6 F L 89 16 124/64 H 93 Room Air 01/08/25 08:16 01/08/25 13:00 01/08/25 08:16 01/08/25 13:00 01/08/25 13:00 01/08/25 13:00 Oxygen Delivery Method Room Air Weight: 153 lb 9.6 oz Body Mass Index (BMI) 27.1 Intake & Output: Intake and Output for Last 24 Hours 01/06/25 01/07/25 01/08/25 23:59 23:59 23:59 Intake Total 73.87 / 313.87 560.87 / 560.87 Balance 73.87 / 313.87 560.87 / 560.87 Lab / Micro Data 01/08/25 06:10 01/08/25 06:10 Labs: Laboratory Results - last 24 hr 01/07/25 17:00: Troponin T Hi Sens 4Hr 573 H* 01/07/25 18:35: APTT 62.2 H 01/08/25 00:41: APTT 60.8 H 01/08/25 06:10: WBC 5.6, RBC 4.44, Hgb 13.0, Hct 39.5, MCV 89.0, MCH 29.3, MCHC 32.9, RDW Std Deviation 45.5 H, RDW Coeff of Wenyd 14.1, Plt Count 236, MPV 9.5, Immature Gran % (Auto) 0.200, Neut % (Auto) 51.0, Lymph % (Auto) 36.3, Hale % (Auto) 9.1, Eos % (Auto) 2.5, Baso % (Auto) 0.9, Absolute Neuts (auto) 2.9, Absolute Lymphs (auto) 2.04, Nucleated RBC % 0, APTT 72.1 H, Sodium 141, Potassium 3.9, Chloride 106, Carbon Dioxide 22.4, Anion Gap 12, BUN 17, Creatinine 0.72, Estim Creat Clear Calc 54.26, Est GFR (MDRD) Non-Af 85, BUN/Creatinine Ratio 24.0 H, Glucose 107 H, Calcium 9.2, Magnesium 2.0 01/08/25 13:18: APTT 28.4 Cardiology Labs/Tests 01/07/25 18:35: APTT 62.2 H 01/08/25 00:41: APTT 60.8 H 01/08/25 06:10: WBC 5.6, RBC 4.44, Hgb 13.0, Hct 39.5, MCV 89.0, MCH 29.3, MCHC 32.9, Plt Count 236, MPV 9.5, Immature Gran % (Auto) 0.200, Neut % (Auto) 51.0, Lymph % (Auto) 36.3, Hale % (Auto) 9.1,Eos % (Auto) 2.5, Baso % (Auto) 0.9, Absolute Neuts (auto) 2.9, Nucleated RBC % 0, APTT 72.1 H, Sodium 141, Potassium3.9, Chloride 106, Carbon Dioxide 22.4, Anion Gap 12, BUN 17, Creatinine 0.72, EstGFR (MDRD) Non-Af 85, BUN/Creatinine Ratio 24.0 H, Glucose 107 H, Calcium 9.2, Magnesium 2.0 01/08/25 13:18: APTT 28.4 Rhythm: EKG: ECHO: Stress Test: Cardiac Cath: PCI: CT Surgery: Holter monitor: EPS: PPM: CXR: Chest CT Scan: Radiography Diagnostic Testing: Radiology Impression Echocardiogram 01/07/25 16:09 Interpretation Summary The estimated ejection fraction is 45-50 %. In comparison to previous echo mildly reduced LV systolic function. No significant valvular abnormality No pericardial effusion. Ordering Physician: [place] Damico Referring Physician: Becky Mcknight Performed By: Katie Zaragoza, RDCS, RVT Physical Exam Cardio Cardio Narrative: Cardiac rhythm is sinus rhythm Cardiac exam S1-S2 is regular Chest exam is clear to auscultation bilateral. Examination lower extremity no lower extremity edema. Assessment & Plan Assessment/Plan (1) NSTEMI, initial episode of care: (2) Paroxysmal atrial fibrillation: (3) Essential hypertension: PLAN: Cardiac care plan; 79-year-old patient underwent cardiac catheterization today Her presentation is symptoms of progressive shortness of breath Patient had history of hypertension History of paroxysmal atrial fibrillation GERD Has ongoing symptoms of which are described as shortness of breath on exertion With diffuse chest pain radiating to both shoulder and to the back She has evaluation by echocardiogram which showed mildly reduced LV systolic function Ejection fraction the range of 45-50% She been seen by the cardiology team over here with Dr. 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 She has a very good distal targets to LAD diagonal OM 2 and distal RCA. Cardiac care plan discussed with the CTS/at [facility] And plan will be to start on the medical therapy with aspirin, statin, SAMUEL inhibitor lisinopril, beta-clark metoprolol XL 25 mg In addition to heparin. Patient has paroxysmal A-fib And once she transfer she will be evaluated for CABG I discussed in detail the cardiac care plan to the patient as well as to the family and nursing staff here at [facility]. Richard White MD,FACC,[facility] 01/08/25 1405 Cosigner Signature (if applicable): CC: ~ Signed [facility]05-29-2025 Progress note [facility] Medical Records Department [address] [place] [address] Progress Note - Hospitalist 01/08/25 1038 MR#: [id number] Acct: [id number] Name: RITIKA SANTANA Rep #:[id number] : 1945 79 From: Danial hernandez DO PCP: ERIN GRANT Status:ADM IN Location: [place] [address] Reason for Visit Reason for Visit: Diagnoses Non-ST elevation (NSTEMI) myocardial infarction (01/07/25) Subjective Subjective Saw patient at bedside with afternoon as she was down having her heart cath donethis morning. Several family members were present. Per cardiology, patient wasfound to have triple-vessel disease and plan is for transfer to [facility] for CABG evaluation. Patient was laying back comfortably in bed and had no chest pain at this time at rest. She denied any other acute concerns at this time. Objective Data Objective Data Vital Signs: Vital Signs Temp Pulse Resp BP Pulse Ox O2 Del Method 97.6 F L 88 16 142/68 H 96 Room Air 01/08/25 08:16 01/08/25 08:16 01/08/25 08:16 01/08/25 08:16 01/08/25 08:16 01/08/25 08:16 Oxygen Delivery Method Room Air Weight: 69.672 kg Body Mass Index (BMI) 27.1 Intake & Output: Intake and Output for Last 24 Hours 01/06/25 01/07/25 01/08/25 23:59 23:59 23:59 Intake Total 73.87 / 313.87 320.87 / 320.87 Balance 73.87 / 313.87 320.87 / 320.87 Lab / Micro Data 01/08/25 06:10 01/08/25 06:10 Labs: Laboratory Results - last 24 hr 01/07/25 11:00: WBC 5.8, RBC 4.66, Hgb 13.6, Hct 41.6, MCV 89.3, MCH 29.2, MCHC 32.7, RDW Std Deviation 46.5 H, RDW Coeff of Wendy 14.4, Plt Count 247, MPV 9.8, Immature Gran % (Auto) 0.200, Neut % (Auto) 60.4, Lymph % (Auto) 26.7, Hale % (Auto) 10.3 H, Eos % (Auto) 1.5, Baso % (Auto) 0.9, Absolute Neuts (auto) 3.5, Absolute Lymphs (auto) 1.56, Nucleated RBC % 0, PT 14.2, INR 1.1, APTT 32.6, D-Dimer Quant (PE/DVT) < 0.27 L, Sodium 138, Potassium 4.3, Chloride 104, Carbon Dioxide 20.3 L, Anion Gap 14, BUN 20 H, Creatinine 0.88, Estim Creat Clear Calc 49.33 L, Est GFR (MDRD) Non-Af 67, BUN/Creatinine Ratio 22.7 H, Glucose 101 H, Calcium 9.5, Troponin T High Sens 656 H*, NT pro BNP II 1762 01/07/25 13:01: Troponin T Hi Sens 2 Hr 617 H* 01/07/25 17:00: Troponin T Hi Sens 4Hr 573 H* 01/07/25 18:35: APTT 62.2 H 01/08/25 00:41: APTT 60.8 H 01/08/25 06:10: WBC 5.6, RBC 4.44, Hgb 13.0, Hct 39.5, MCV 89.0, MCH 29.3, MCHC 32.9, RDW Std Deviation 45.5 H, RDW Coeff of Wendy 14.1, Plt Count 236, MPV 9.5, Immature Gran % (Auto) 0.200, Neut % (Auto) 51.0, Lymph % (Auto) 36.3, Hale % (Auto) 9.1, Eos % (Auto) 2.5, Baso % (Auto) 0.9, Absolute Neuts (auto) 2.9, Absolute Lymphs (auto) 2.04, Nucleated RBC % 0, APTT 72.1 H, Sodium 141, Potassium 3.9, Chloride 106, Carbon Dioxide 22.4, Anion Gap 12, BUN 17, Creatinine 0.72, Estim Creat Clear Calc 54.26, Est GFR (MDRD) Non-Af 85, BUN/Creatinine Ratio 24.0 H, Glucose 107 H, Calcium 9.2, Magnesium 2.0 Radiography Diagnostic Testing: Radiology Impression Chest X-Ray 01/07/25 11:22 IMPRESSION: Mild cardiomegaly. The lungs are clear. Moderate-sized hiatal hernia. Reading Location: [place] [address] Physical Exam Const alert, oriented x3, no apparent distress and average body habitus General Appearance: cooperative and comfortable HEENT normocephalic, head/scalp atraumatic, hearing grossly normal bilaterally, nasal mucous membranes and turbinates normal and moist oral mucous membranes Eyes PERRL, EOMs intact bilaterally and conjunctivae normal Neck full ROM Chest inspection of chest normal Resp normal respiratory effort, normal air movement, no use of accessory muscles and clear to auscultation bilaterally Cardio regular rate, regular rhythm, no murmurs and peripheral pulses 2+ throughout GI normal to inspection, nondistended, normoactive bowel sounds, soft to palpation,non-tender and non-distended Back/Spine normal ROM Extremity normal to inspection, full ROM and no pedal edema Skin no rashes or lesions noted Psych mental status grossly normal Assessment & Plan Assessment/Plan (1) NSTEMI, initial episode of care: PLAN: Plan Patient is a 79-year-old female who presented to [facility] ED on 01/07/2025 with worsening shortness of breath with exertion and fatigue. 1. NSTEMI type I with severe multivessel disease ? Cardiology following. Presented with worsening shortness of breath with exertion and fatigue for about 1 week. Troponin trend on admit 656 > 617 > 573. EKG showed normal sinus rhythm but subtle T wave inversions in inferior leads. Echo showed EF 45 to 50%, mildly reduced previous, no other abnormalities noted. Left heart cath with severe multivessel disease noted. Per cardiology, plan isfor transfer to [facility] for CABG evaluation. Continue heparin drip along with home medications of aspirin, statin, Toprol, lisinopril and hydrochlorothiazide. 2. Paroxysmal A-fib ? Stable in normal sinus rhythm since admission. Continue home Toprol. On heparin drip as above. 3. Hypertension ? Continue home medications as above. 4. GERD ? Continue home PPI. DVT prophylaxis: Not indicated, on heparin drip CODE STATUS: Full code, verified Expected disposition: Transfer to [facility] Total clinical time spent by myself addressing the patient's medical issues, reviewing all the data, and collaborating with patient's care team: 35 minutes. Charges/Coding Visit Charges Inpatient E&M: 62820 Subs Hosp L2 01/08/25 1400 Cosigner Signature (if applicable): CC: ~ Signed [facility]05-29-2025 [facility] Medical Records Department [address] [place] [address] History Physical Exam 01/08/25 1115 MR#: [id number] Acct: [id number] Name: RITIKA SANTANA Rep #: [id number] : 1945 79 From: Richard White MD PCP: ERIN GRANT Status:DIS IN Location: [place] [address] 01/09/25 1534 Cosigner Signature (if applicable): CC: Dr. Richard White MD; ERIN GRANT [facility] Discharge summary Author Houston Morales [facility] Note Date/Time January 07, 2025 8:46p [facility] Medical Records Department [address] [place] [address] Emergency Department Summary 01/07/25 MR#: [id number] Acct: [id number] Name: RITIKA SANTANA Rep #:[id number] : 1945 79 From: Houston esteban DO PCP: ERIN GRANT Status:ADM IN Location: [place] [address] HPI History of Present Illness Chief Complaint: Shortness of Breath Narrative Narrative: Chief complaint and HPI: Episodic back pain. 79-year-old female with past medical history of atrial fibrillation on Eliquis, HTN presents for evaluation of episodic back pain. Patient states since last week she has been developing intermittent pain in her upper thoracic that radiates to her bilateral shoulders, bilateral arms, and neck when lying down in her bed at night. She states that she only has the pain when lying down in bed at night to sleep. Shestates if she sits up the pain resolves. Does not develop the pain throughout the day. Denies any true chest pain with the event. States that she has occasionally become short of breath with exertion. She has been taking all of her anticoagulation has not missed a dose. Currently asymptomatic. She denies any fever, chills, URI symptoms, abdominal pain, nausea, vomiting. Patient saw her tone artist apprentice for the complaint above in which they performed an EKG that showed nonspecific changes and sent her to the emergency department for further workup. Denies any lower extremity pain or swelling. Review of systems: See HPI Medications: As listed on the chart Allergies: As listed on the chart PFSH: Per chart Vital signs: As listed on the chart. Reviewed. Physical exam: Gen: A&O x3, NAD Head: Normocephalic, atraumatic Eyes: No sclera icterus, conjunctiva clear ENT: Moist mucous membranes Neck: Trachea midline, No JVD, no carotid bruit, no midline spinal tenderness, full range of motion, mild tenderness to palpation of the paraspinal musculatureof the right upper thoracic paraspinal musculature CV: RRR, no murmurs, no peripheral edema Resp: Lungs CTA BL, no w/r/c GI: Abd soft, non-distended, non-tender, no r/r/g Musc: Full ROM, no deformity other than kyphosis Skin: Warm, dry Neuro: Alert, oriented, grossly intact, sensation intact Psych: Cooperative, appropriate mood and affect [facility] Medical History Macular degeneration GERD (gastroesophageal reflux disease) Paroxysmal atrial fibrillation Essential hypertension Right atrial enlargement Atrial fibrillation HTN (hypertension) SOB (shortness of breath) Fatigue Hypokalemia Home Medications ?Medication ?Instructions ?Recorded ?Last Taken ?Type cetirizine 10 mg capsule 10 mg PO DAILY allergies Unknown History esomeprazole magnesium 20 mg 20 mg PO DAILY heartburn 10/24/23 01/06/25 08:00 History capsule,delayed release (Nexium) potassium chloride 20 mEq 20 meq PO DAILY #90 TABLETS 10/31/23 01/06/25 22:00 Rx tablet,extended release hydrochlorothiazide 25 mg tablet 25 mg PO DAILY #90 TA BLETS 04/24/24 01/06/25 Rx diltiazem HCl 120 mg See Rx Instructions .Route 1 09/23/23 Unknown Rx capsule,extended release 24 hr .COMPLEX #90 caps apixaban 5 mg tablet (Eliquis) 5 mg PO BID afib #180 t abs 11/04/24 01/06/25 22:00 Rx 5 mg benazepril 20 mg tablet See Rx Instructions .Route 0 01/01/25 01/06/25 22:00 Rx .COMPLEX #90 tabs Bacillus coagulans 10 billion cell 10 cell PO DAILY pr obiotic 01/07/25 Unknown History capsule,delayed release (Probiotic (B. coagulans)) latanoprost (PF) 0.005 % eye drops 1 drp ophthalmic (e ye) QDAY ocular 01/07/25 01/06/25 22:00 History pressure Allergy/AdvReac Type Severity Reaction Status Date / Time ciprofloxacin (From Cipro) AdvReac Other Verified 01/07/25 10:20 ciprofloxacin HCl (From AdvReac Other Verified 01/07/25 10:20 Cipro) Family History Father Hypertension Mother Jeanette Gehrig's disease Brother CAD (coronary artery disease) Surgical History History of basal cell carcinoma excision History of bilateral cataract extraction breast cyst removal Social History Smoking Status: Never smoker alcohol intake: never substance use type: does not use caffeine: Yes Type: coffee Number of servings: 1 what type of physical activity do you participate in: none seatbelt use: always do you feel safe at home: Yes EXAM Physical Exam Const Vital Signs: 01/07/25 10:17 01/07/25 10:17 01/07/25 12:17 Temperature 97.7 F L Temperature Source Oral Pulse Rate 86 75 Respiratory Rate 16 23 H Respiratory Effort Normal Non-Labored Respiratory Depth Normal Respiratory Pattern Normal Blood Pressure 152/82 H 136/69 H Blood Pressure Mean 105 91 Pulse Ox 100 100 Oxygen Delivery Method Room Air Room Air MDM MDM MDM Narrative Medical decision making narrative: 79-year-old female with past medical history of atrial fibrillation on Eliquis, HTN presents for evaluation of episodic back pain. Onset last week and radiatesto bilateral shoulders, arms, neck when develops. States it only happens at night when she is lying down in her bed. Associated symptom is intermittent exertional dyspnea. Denies any chest pain. Patient was sent to the ED by cardiology office. Prior to arriving at the emergency department, I did personally speak to the provider that took care of the patient today over the phone. I did review the cardiology note from today. Patient's most recent stress test was in 2013. There is no acute ischemic changes. I do not see an echocardiogram. Differential diagnosis includes but is not limited to myofascial spasm, ACS, CHF, arrhythmia, electrolyte abnormality, suspect less likely PE or pericarditis. Although patient is not currently endorsing chest pain, main concern from cardiology was for NSTEMI therefore aspirin ordered withcardiac/respiratory workup. EKG and chest x-ray reviewed see below. CBC without leukocytosis or anemia. Platelets unremarkable. INR unremarkable. D-dimer unremarkable. BMP relatively unremarkable without ELVIRA. BNP unremarkable. Troponin elevated at 656. Concern is for NSTEMI. Patient not having any chestpain. Repeat EKG obtained given elevated troponin. EKG again shows normal sinus rhythm with nonspecific ST changes. Heart rate 100. Heparin will be started without bolus given patient is already on Eliquis. I spoke with cardiology on-call, agrees with the heparin without bolus. Recommends echocardiogram be performed today with medical admission. Likely will take to [facility] tomorrow. Hospital service was contacted and patient was discussed, accepted admission. Patient was updated of all the results and confirmed understanding of the plan. Repeat troponin 617. EKG: Interpreted by me/EM physician: EKG shows normal sinus rhythm with nonspecific ST changes. Heart rate 78. This is similar to the previous EKG that was seen in the cardiology office. There is artifact on the EKG from the cardiology office. Diagnostic: Interpreted by me/EM physician: Chest x-ray without pneumothorax, pneumonia, effusion. Mild cardiomegaly. Radiology in agreement, hiatal hernia per radiology. 35 minutes of critical care time utilized in managing the patient. This is due to high probability of and deterioration of the patient based on the patient's condition and excludes any separately billable procedures. Impression: 1. NSTEMI 2. History of atrial fibrillation on Eliquis Lab Data Labs: Laboratory Results - last 24 hr 01/07/25 11:00 WBC 5.8 RBC 4.66 Hgb 13.6 Hct 41.6 MCV 89.3 MCH 29.2 MCHC 32.7 RDW Std Deviation 46.5 H RDW Coeff of Wendy 14.4 Plt Count 247 MPV 9.8 Immature Gran % (Auto) 0.200 Neut % (Auto) 60.4 Lymph % (Auto) 26.7 Hale % (Auto) 10.3 H Eos % (Auto) 1.5 Baso % (Auto) 0.9 Absolute Neuts (auto) 3.5 Absolute Lymphs (auto) 1.56 Nucleated RBC % 0 PT 14.2 INR 1.1 APTT 32.6 D-Dimer Quant (PE/DVT) < 0.27 L Sodium 138 Potassium 4.3 Chloride 104 Carbon Dioxide 20.3 L Anion Gap 14 BUN 20 H Creatinine 0.88 Estim Creat Clear Calc 49.33 L Est GFR (MDRD) Non-Af 67 BUN/Creatinine Ratio 22.7 H Glucose 101 H Calcium 9.5 Troponin T High Sens 656 H* NT pro BNP II 1762 Radiography Diagnostic Testing: Clinical Impression(s) from Imaging Studies Chest X-Ray 01/07/25 11:22 IMPRESSION: Mild cardiomegaly. The lungs are clear. Moderate-sized hiatal hernia. Reading Location: [place] [address] Discharge Plan Disposition Disposition: Acute Care Hospital [facility] Discharge Date/Time: 01/07/25 15:22 What to do if you have Problems For any increased pain, shortness of breath, bleeding, nausea or vomiting, chestpain, or any unexpected problems, contact your Primary Care Provider. Call [facility] ([phone]) or report to the closest Emergency Room. Call 911 if necessary. 01/07/252045 <Electronically signed by Houston Morales DO> Cosigner Signature (if applicable): CC: ERIN GRANT ~ Signed [facility] Work Phone: [phone] Discharge summary [facility] Medical Records Department [address] [place] [address] Emergency Department Summary 01/07/25 MR#: [id number] Acct: [id number] Name: RITIKA SANTANA Rep #:[id number] : 1945 79 From: Houston esteban DO PCP: ERIN GRANT Status:ADM IN Location: [place] [address] HPI History of Present Illness Chief Complaint: Shortness of Breath Narrative Narrative: Chief complaint and HPI: Episodic back pain. 79-year-old female with past medical history of atrialfibrillation on Eliquis, HTN presents for evaluation of episodic back pain. Patient states since last week she has been developing intermittent pain in her upper thoracic that radiates to her bilateral shoulders, bilateral arms, and neck when lying down in her bed at night. She states that she onlyhas the pain when lying down in bed at night to sleep. Shestates if she sits up the pain resolves. Does not develop the pain throughout the day. Denies any true chest pain with the event. States thatshe has occasionally become short of breath with exertion. She has been taking all of her anticoagulation has not missed a dose. Currently asymptomatic. She denies any fever, chills, URI symptoms, abdominal pain, nausea, vomiting. Patient saw her tone artist apprentice for the complaint above in which they performed an EKG that showed nonspecific changes and sent her to the emergency department for further workup. Denies any lower extremity pain or swelling. Review of systems: See HPI Medications: As listed on the chart Allergies: As listed on the chart PFSH: Per chart Vital signs: As listed on the chart. Reviewed. Physical exam: Gen: A&O x3, NAD Head: Normocephalic, atraumatic Eyes: No sclera icterus, conjunctiva clear ENT: Moist mucous membranes Neck: Trachea midline, No JVD, no carotid bruit, no midline spinal tenderness, full range of motion, mild tenderness to palpation of the paraspinal musculatureof the right upper thoracic paraspinal musculature CV: RRR, no murmurs, no peripheral edema Resp: Lungs CTA BL, no w/r/c GI: Abd soft, non-distended, non-tender, no r/r/g Musc: Full ROM, no deformity other than kyphosis Skin: Warm, dry Neuro: Alert, oriented, grossly intact, sensation intact Psych: Cooperative, appropriate mood and affect [facility] Medical History Macular degeneration GERD (gastroesophageal reflux disease) Paroxysmal atrial fibrillation Essential hypertension Right atrial enlargement Atrial fibrillation HTN (hypertension) SOB (shortness of breath) Fatigue Hypokalemia Home Medications ?Medication ?Instructions ?Recorded ?Last Taken ?Type cetirizine 10 mg capsule 10 mg PO DAILY allergies Unknown History esomeprazole magnesium 20 mg 20 mg PO DAILY heartburn 10/24/23 01/06/25 08:00 History capsule,delayed release (Nexium) potassium chloride 20 mEq 20 meq PO DAILY #90 TABLETS 10/31/23 01/06/25 22:00 Rx tablet,extended release hydrochlorothiazide 25 mg tablet 25 mg PO DAILY #90 TA BLETS 04/24/24 01/06/25 Rx diltiazem HCl 120 mg See Rx Instructions .Route 1 09/23/23 Unknown Rx capsule,extended release 24 hr .COMPLEX #90 caps apixaban 5 mg tablet (Eliquis) 5 mg PO BID afib #180 t abs 11/04/24 01/06/25 22:00 Rx 5 mg benazepril 20 mg tablet See Rx Instructions .Route 0 01/01/25 01/06/25 22:00 Rx .COMPLEX #90 tabs Bacillus coagulans 10 billion cell 10 cell PO DAILY pr obiotic 01/07/25 Unknown History capsule,delayed release (Probiotic (B. coagulans)) latanoprost (PF) 0.005 % eye drops 1 drp ophthalmic (e ye) QDAY ocular 01/07/25 01/06/25 22:00 History pressure Allergy/AdvReac Type Severity Reaction Status Date / Time ciprofloxacin (From Cipro) AdvReac Other Verified 01/07/25 10:20 ciprofloxacin HCl (From AdvReac Other Verified 01/07/25 10:20 Cipro) Family History Father Hypertension Mother Jeanette Gehrig's disease Brother CAD (coronary artery disease) Surgical History History of basal cell carcinoma excision History of bilateral cataract extraction breast cyst removal Social History Smoking Status: Never smoker alcohol intake: never substance use type: does not use caffeine: Yes Type: coffee Number of servings: 1 what type of physical activity do you participate in: none seatbelt use: always do you feel safe at home: Yes EXAM Physical Exam Const Vital Signs: 01/07/25 10:17 01/07/25 10:17 01/07/25 12:17 Temperature 97.7 F L Temperature Source Oral Pulse Rate 86 75 Respiratory Rate 16 23 H Respiratory Effort Normal Non-Labored Respiratory Depth Normal Respiratory Pattern Normal Blood Pressure 152/82 H 136/69 H Blood Pressure Mean 105 91 Pulse Ox 100 100 Oxygen Delivery Method Room Air Room Air MDM MDM MDM Narrative Medical decision making narrative: 79-year-old female with past medical history of atrial fibrillation on Eliquis, HTN presents for evaluation of episodic back pain. Onset last week and radiatesto bilateral shoulders, arms, neck when develops. States it only happens at night when she is lying down in her bed. Associated symptom is intermittent exertional dyspnea. Denies any chest pain. Patient was sent to the ED by cardiology office. Prior to arriving at the emergency department, I did personally speak to the provider that took care of the patient today over the phone. I did review the cardiology note from today. Patient's most recent stress test was in 2013. There is no acute ischemic changes. I do not see an echocardiogram. Differential diagnosis includes but is not limited to myofascial spasm, ACS, CHF, arrhythmia, electrolyte abnormality, suspect less likely PE or pericarditis. Although patient is not currently endorsing chest pain, main concern from cardiology was for NSTEMI therefore aspirin ordered withcardiac/re spiratory workup. EKG and chest x-ray reviewed see below. CBC without leukocytosis or anemia. Platelets unremarkable. INR unremarkable. D-dimer unremarkable. BMP relatively unremarkable without ELVIRA. BNP unremarkable. Troponin elevated at 656. Concern is for NSTEMI. Patient not having any chestpain.Repeat EKG obtained given elevated troponin. EKG again shows normal sinus rhythm with nonspecific ST changes. Heart rate 100. Heparin will be started without bolus given patient is already on Eliquis. I spoke with cardiology on-call, agrees with the heparin without bolus. Recommends echocardiogram be performed today with medical admission. Likely will take to [facility] tomorrow. Hospital service was contacted and patient was discussed, accepted admission. Patient was updated of all the results and confirmed understanding of the plan. Repeat troponin 617. EKG: Interpreted by me/EM physician: EKG shows normal sinus rhythm with nonspecific ST changes. Heart rate 78. This is similar to the previous EKG that was seen in the cardiology office. There is artifacton the EKG from the cardiology office. Diagnostic: Interpreted by me/EM physician: Chest x-ray without pneumothorax, pneumonia, effusion. Mild cardiomegaly. Radiology in agreement, hiatal hernia per radiology. 35 minutes of critical care time utilized in managing the patient. This is due to high probability of and deterioration of the patient based on the patient's condition and excludes any separately billable procedures. Impression: 1. NSTEMI 2. History of atrial fibrillation on Eliquis Lab Data Labs: Laboratory Results - last 24 hr 01/07/25 11:00 WBC 5.8 RBC 4.66 Hgb 13.6 Hct 41.6 MCV 89.3 MCH 29.2 MCHC 32.7 RDW Std Deviation 46.5 H RDW Coeff of Wendy 14.4 Plt Count 247 MPV 9.8 Immature Gran % (Auto) 0.200 Neut % (Auto) 60.4 Lymph % (Auto) 26.7 Hale % (Auto) 10.3 H Eos % (Auto) 1.5 Baso % (Auto) 0.9 Absolute Neuts (auto) 3.5 Absolute Lymphs (auto) 1.56 Nucleated RBC % 0 PT 14.2 INR 1.1 APTT 32.6 D-Dimer Quant (PE/DVT) < 0.27 L Sodium 138 Potassium 4.3 Chloride 104 Carbon Dioxide 20.3 L Anion Gap 14 BUN 20 H Creatinine 0.88 Estim Creat Clear Calc 49.33 L Est GFR (MDRD) Non-Af 67 BUN/Creatinine Ratio 22.7 H Glucose 101 H Calcium 9.5 Troponin T High Sens 656 H* NT pro BNP II 1762 Radiography Diagnostic Testing: Clinical Impression(s) from Imaging Studies Chest X-Ray 01/07/25 11:22 IMPRESSION: Mild cardiomegaly. The lungs are clear. Moderate-sized hiatal hernia. Reading Location: [facility] Discharge Plan Disposition Disposition: Acute Care Hospital [facility] Discharge Date/Time: 01/07/25 15:22 What to do if you have Problems For any increased pain, shortness of breath, bleeding, nausea or vomiting, chestpain, or any unexpected problems, contact your Primary Care Provider. Call [facility] ([phone]) or report tothe closest Emergency Room. Call 911 if necessary. 01/07/252045 Cosigner Signature (if applicable): CC: ERIN GRANT ~ Signed [facility]05-28-2025 Consult note Author Richard White [facility] Note Date/Time January 07, 2025 4:49p m [facility] Medical Records Department [address] [place] [address] Consultation - Cardiology 01/07/25 1642 MR#: [id number] Acct: [id number] Name: RITIKA SANTANA Rep #:[id number] : 1945 79 From: Richard White MD PCP: ERIN GRANT Status:ADM IN Location: [place] [address] HPI Consult Data Date of Consult: 01/07/25 HPI Narrative Reason for Consultation: Non-STEMI HPI Narrative: RITIKA SANTANA, is a 79 F who presents [facility] Medical History Macular degeneration GERD (gastroesophageal reflux disease) Paroxysmal atrial fibrillation Essential hypertension Right atrial enlargement Atrial fibrillation HTN (hypertension) SOB (shortness of breath) Fatigue Hypokalemia Home Medications ?Medication ?Instructions ?Recorded ?Last Taken ?Type cetirizine 10 mg capsule 10 mg PO DAILY 03/29/14 Unkn own History esomeprazole magnesium 20 mg 20 mg PO DAILY 10/24/23 U nknown History capsule,delayed release (Nexium) potassium chloride 20 mEq 20 meq PO DAILY #90 TABLETS 10/31/23 Unknown Rx tablet,extended release hydrochlorothiazide 25 mg tablet 25 mg PO DAILY #90 TA BLETS 04/24/24 Unknown Rx diltiazem HCl 120 mg See Rx Instructions .Route 1 09/23/23 Unknown Rx capsule,extended release 24 hr .COMPLEX #90 caps apixaban 5 mg tablet (Eliquis) 5 mg PO BID afib #180 t abs 11/04/24 01/06/25 22:00 Rx 5 mg benazepril 20 mg tablet See Rx Instructions .Route 0 01/01/25 Unknown Rx .COMPLEX #90 tabs Bacillus 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 coagulans)) latanoprost (PF) 0.005 % eye drops 1 drp ophthalmic (e ye) QDAY 01/07/25 Unknown History Allergy/AdvReac Type Severity Reaction Status Date / Time ciprofloxacin (From Cipro) AdvReac Other Verified 01/07/25 10:20 ciprofloxacin HCl (From AdvReac Other Verified 01/07/25 10:20 Cipro) Family History Father Hypertension Mother Jeanette Gehrig's disease Brother CAD (coronary artery disease) Surgical History History of basal cell carcinoma excision History of bilateral cataract extraction breast cyst removal Social History Smoking Status: Never smoker alcohol intake: never substance use type: does not use caffeine: Yes Type: coffee Number of servings: 1 what type of physical activity do you participate in: none seatbelt use: always do you feel safe at home: Yes Physical Exam Cardio Cardio Narrative: 79-year-old female seen and evaluated in the ED Cardiac consultation requested for elevated high sensitive troponins/non-ST elevation TN. She had symptoms of palpitation with shortness of breath and generalized chest pain mainly described as diffuse chest discomfort with some radiation to the back and to both shoulders more prominent on the left side. Cardiac consultation requested as she has elevated high sensitive troponins witha clinical diagnosis of non-ST elevation TN. Patient has history of paroxysmal A- fib and she was on Cardizem as well she was in OAC with Eliquis As well she had been on lisinopril. Other medical problem include history of GERD and mild macular degeneration. And on previous echocardiogram noted she had right atrial enlargement and she had paroxysmal atrial fibrillation. Bedside evaluation she is comfortable she does not have any active chest pain attime of evaluation. On the manager monitoring showed underlying sinus rhythm. Cardiac exam essentially normal Chest clear to auscultation bilateral Cardiac care plan recommendations; 1. This patient has non-ST elevation TN with significant elevated high sensitive troponin more than 600. Started the patient on heparin Will continue with the Cardizem. Harrison has been on hold She was given also low-dose aspirin 81 mg. Will start on statin. And will continue on her SAMUEL inhibitor benazepril. Will plan for echocardiographic evaluation to assess LV function. As well we will plan for cardiac catheterization/right radial artery approach with Which will be set up for tomorrow. Richard White MD,[facility] Risk Stratification Risk Stratification Applicable: Yes Age >/= 65: Yes >/= 3 CAD Risk Factors (HTN, HLD, DM, family hx of CAD, or current smoker): Yes (Hypertension) Aspirin Use in the Past 7 Days: Yes Severe Angina (>/= episodes in 24 hours): No EKG ST Changes >/= 0.5mm: No (No significant ST-T changes in the EKG) Positive Cardiac Marker: Yes (High sensitive troponin elevated more than 600) JUAN Risk Stratification Score: 4 JUAN % Risk: 20% Risk Objective Data Vital Signs: Vital Signs Temp Pulse Resp BP Pulse Ox O2 Del Method 98.6 F 87 18 132/80 H 94 Room Air 01/07/25 15:46 01/07/25 15:46 01/07/25 15:46 01/07/25 15:46 01/07/25 15:46 01/07/25 16:11 Oxygen Delivery Method Room Air Weight: 153 lb 9.6 oz Body Mass Index (BMI) 27.1 Lab / Micro Data 01/07/25 11:00 01/07/25 11:00 Labs: Laboratory Results - last 24 hr 01/07/25 11:00: WBC 5.8, RBC 4.66, Hgb 13.6, Hct 41.6, MCV 89.3, MCH 29.2, MCHC 32.7, RDW Std Deviation 46.5 H, RDW Coeff of Wendy 14.4, Plt Count 247, MPV 9.8, Immature Gran % (Auto) 0.200, Neut % (Auto) 60.4, Lymph % (Auto) 26.7, Hale % (Auto) 10.3 H, Eos % (Auto) 1.5, Baso % (Auto) 0.9, Absolute Neuts (auto) 3.5, Absolute Lymphs (auto) 1.56, Nucleated RBC % 0, PT 14.2, INR 1.1, APTT 32.6, D-Dimer Quant (PE/DVT) < 0.27 L, Sodium 138, Potassium 4.3, Chloride 104, Carbon Dioxide 20.3 L, Anion Gap 14, BUN 20 H, Creatinine 0.88, Estim Creat Clear Calc 49.33 L, Est GFR (MDRD) Non-Af 67, BUN/Creatinine Ratio 22.7 H, Glucose 101 H, Calcium 9.5, Troponin T High Sens 656 H*, NT pro BNP II 1762 01/07/25 13:01: Troponin T Hi Sens 2 Hr 617 H* Cardiology Labs/Tests 01/07/25 11:00: WBC 5.8, RBC 4.66, Hgb 13.6, Hct 41.6, MCV 89.3, MCH 29.2, MCHC 32.7, Plt Count 247, MPV 9.8, Immature Gran % (Auto) 0.200, Neut % (Auto) 60.4, Lymph % (Auto) 26.7, Hale % (Auto) 10.3 H, Eos % (Auto) 1.5, Baso % (Auto) 0.9, Absolute Neuts (auto) 3.5, Nucleated RBC % 0, PT 14.2, INR 1.1, APTT 32.6, D-Dimer Quant (PE/DVT) < 0.27 L, Sodium 138, Potassium 4.3, Chloride 104, Carbon Dioxide 20.3 L, Anion Gap 14, BUN 20 H, Creatinine 0.88, Est GFR (MDRD) Non-Af 67, BUN/Creatinine Ratio 22.7 H, Glucose 101 H, Calcium 9.5 Rhythm: EKG: ECHO: Stress Test: Cardiac Cath: PCI: CT Surgery: Holter monitor: EPS: PPM: CXR: Chest CT Scan: Radiography Diagnostic Testing: Radiology Impression Chest X-Ray 01/07/25 11:22 IMPRESSION: Mild cardiomegaly. The lungs are clear. Moderate-sized hiatal hernia. Reading Location: [place] [address] 01/07/251648 <Electronically signed by Richard White MD> Cosigner Signature (if applicable): CC: ERIN GRANT~ Signed [facility] Work Phone: [phone] 440-249305-28-2025 Consult note [facility] Medical Records Department [address] [place] [address] Consultation - Cardiology 01/07/25 164 MR#: [id number] Acct: [id number] Name: RITIKA SANTANA Rep #:[id number] : 1945 79 From: Richard White MD PCP: ERIN GRANT Status:ADM IN Location: [place] [id number] HPI Consult Data Date of Consult: 01/07/25 HPI Narrative Reason for Consultation: Non-STEMI HPI Narrative: RITIKA SANTANA, is a 79 F who presents [facility] Medical History Macular degeneration GERD (gastroesophageal reflux disease) Paroxysmal atrial fibrillation Essential hypertension Right atrial enlargement Atrial fibrillation HTN (hypertension) SOB (shortness of breath) Fatigue Hypokalemia Home Medications ?Medication ?Instructions ?Recorded ?Last Taken ?Type cetirizine 10 mg capsule 10 mg PO DAILY 03/29/14 Unkn own History esomeprazole magnesium 20 mg 20 mg PO DAILY 10/24/23 U nknown History capsule,delayed release (Nexium) potassium chloride 20 mEq 20 meq PO DAILY #90 TABLETS 10/31/23 Unknown Rx tablet,extended release hydrochlorothiazide 25 mg tablet 25 mg PO DAILY #90 TA BLETS 04/24/24 Unknown Rx diltiazem HCl 120 mg See Rx Instructions .Route 1 09/23/23 Unknown Rx capsule,extended release 24 hr .COMPLEX #90 caps apixaban 5 mg tablet (Eliquis) 5 mg PO BID afib #180 t abs 11/04/24 01/06/25 22:00 Rx 5 mg benazepril 20 mg tablet See Rx Instructions .Route 0 01/01/25 Unknown Rx .COMPLEX #90 tabs Bacillus 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 coagulans)) latanoprost (PF) 0.005 % eye drops 1 p ophthalmic (e ye) QDAY 01/07/25 Unknown History Allergy/AdvReac Type Severity Reaction Status Date / Time ciprofloxacin (From Cipro) AdvReac Other Verified 01/07/25 10:20 ciprofloxacin HCl (From AdvReac Other Verified 01/07/25 10:20 Cipro) Family History Father Hypertension Mother Jeanette Gehrig's disease Brother CAD (coronary artery disease) Surgical History History of basal cell carcinoma excision History of bilateral cataract extraction breast cyst removal Social History Smoking Status: Never smoker alcohol intake: never substance use type: does not use caffeine: Yes Type: coffee Number of servings: 1 what type of physical activity do you participate in: none seatbelt use: always do you feel safe at home: Yes Physical Exam Cardio Cardio Narrative: 79-year-old female seen and evaluated in the ED Cardiac consultation requested for elevated high sensitive troponins/non-ST elevation TN. She had symptoms of palpitation with shortness of breath and generalized chest pain mainly described as diffuse chest discomfort with some radiation to the back and to both shoulders more prominent on the left side. Cardiac consultation requested as she has elevated high sensitive troponins witha clinical diagnosis of non-ST elevation TN. Patient has history of paroxysmal A-fib and she was on Cardizem as well she was in OAC with Eliquis As well she had been on lisinopril. Other medical problem include history of GERD and mild macular degeneration. And on previous echocardiogram noted she had right atrial enlargement and she had paroxysmal atrial fibrillation. Bedside evaluation she is comfortable she does not have any active chest pain attime of evaluation. On the manager monitoring showed underlying sinus rhythm. Cardiac exam essentially normal Chest clear to auscultation bilateral Cardiac care plan recommendations; 1. This patient has non-ST elevation TN with significant elevated high sensitive troponin more [id number]. Started the patient on heparin Will continue with the Cardizem. Eliquis has been on hold She was given also low-dose aspirin 81 mg. Will start on statin. And will continue on her SAMUEL inhibitor benazepril. Will plan for echocardiographic evaluation to assess LV function. As well we will plan for cardiac catheterization/right radial artery approach with Which will be set up for tomorrow. Richard White MD,[facility] Risk Stratification Risk Stratification Applicable: Yes Age >/= 65: Yes >/= 3 CAD Risk Factors (HTN, HLD, DM, family hx of CAD, or current smoker): Yes (Hypertension) Aspirin Use in the Past 7 Days: Yes Severe Angina (>/= episodes in 24 hours): No EKG ST Changes >/= 0.5mm: No (No significant ST-T changes in the EKG) Positive Cardiac Marker: Yes (High sensitive troponin elevated more than 600) JUAN Risk Stratification Score: 4 JUAN % Risk: 20% Risk Objective Data Vital Signs: Vital Signs Temp Pulse Resp BP Pulse Ox O2 Del Method 98.6 F 87 18 132/80 H 94 Room Air 01/07/25 15:46 01/07/25 15:46 01/07/25 15:46 01/07/25 15:46 01/07/25 15:46 01/07/25 16:11 Oxygen Delivery Method Room Air Weight: 153 lb 9.6 oz Body Mass Index (BMI) 27.1 Lab / Micro Data 01/07/25 11:00 01/07/25 11:00 Labs: Laboratory Results - last 24 hr 01/07/25 11:00: WBC 5.8, RBC 4.66, Hgb 13.6, Hct 41.6, MCV 89.3, MCH 29.2, MCHC 32.7, RDW Std Deviation 46.5 H, RDW Coeff of Wendy 14.4, Plt Count 247, MPV 9.8, Immature Gran % (Auto) 0.200, Neut % (Auto) 60.4, Lymph % (Auto) 26.7, Hale % (Auto) 10.3 H, Eos % (Auto) 1.5, Baso % (Auto) 0.9, Absolute Neuts (auto) 3.5, Absolute Lymphs (auto) 1.56, Nucleated RBC % 0, PT 14.2, INR 1.1, APTT 32.6, D-Dimer Quant (PE/DVT) < 0.27 L, Sodium 138, Potassium 4.3, Chloride 104, Carbon Dioxide 20.3 L, Anion Gap 14, BUN 20 H, Creatinine 0.88, Estim Creat Clear Calc 49.33 L, Est GFR (MDRD) Non-Af 67, BUN/Creatinine Ratio 22.7 H, Glucose 101 H, Calcium 9.5, Troponin T High Sens 656 H*, NT pro BNP II 1762 01/07/25 13:01: Troponin T Hi Sens 2 Hr 617 H* Cardiology Labs/Tests 01/07/25 11:00: WBC 5.8, RBC 4.66, Hgb 13.6, Hct 41.6, MCV 89.3, MCH 29.2, MCHC 32.7, Plt Count 247, MPV 9.8, Immature Gran % (Auto) 0.200, Neut % (Auto) 60.4, Lymph % (Auto) 26.7, Hale % (Auto) 10.3H, Eos % (Auto) 1.5, Baso % (Auto) 0.9, Absolute Neuts (auto) 3.5, Nucleated RBC % 0, PT 14.2, INR 1.1, APTT 32.6, D- Dimer Quant (PE/DVT) < 0.27 L, Sodium 138, Potassium 4.3, Chloride 104, Carbon D ioxide 20.3 L, Anion Gap 14, BUN 20 H, Creatinine 0.88, Est GFR (MDRD) Non-Af 67, BUN/Creatinine Ratio 22.7 H, Glucose 101 H, Calcium 9.5 Rhythm: EKG: ECHO: Stress Test: Cardiac Cath: PCI: CT Surgery: Holter monitor: EPS: PPM: CXR: Chest CT Scan: Radiography Diagnostic Testing: Radiology Impression Chest X-Ray 01/07/25 11:22 IMPRESSION: Mild cardiomegaly. The lungs are clear. Moderate-sized hiatal hernia. Reading Location: [facility] 01/07/25 1649 Cosigner Signature (if applicable): CC: ERIN GRANT~ Signed [facility]05-28-2025 History and physical note Author Washington Damico [facility] Note Date/Time January 07, 2025 1:21p m [facility] Medical Records Department [address] [place] [address] H&P Exam - Hospitalist 01/07/25 1316 MR#: [id number] Acct: [id number] Name: RITIKA SANTANA Rep #:[id number] : 1945 79 From: Washington Damico DO PCP: ERIN GRANT Status:REG ER Location: ED HPI - General General Date of Service: 01/07/25 Chief Complaint: Shortness of breath HPI Narrative RITIKA SANTANA, is a 79 F who presents with shortness of breath. This is a 79-year-old female with A-fib that is presenting with shortness of breath. Symptoms began a week ago and was primarily noted at night when she would lay down. She would also have discomfort into her shoulders and neck and through toher back. Denied any chest pain. To get short of breath with exertion. Over this past week, her symptoms have gotten better. 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 She had an EKG that was normal sinus rhythm but did have some subtle T wave inversions in inferior leads. And her cardiac enzymes came back at 656. Cardiology was notified and saw the patient and tentative plan is for a cardiac catheterization on the . Patient has never had a myocardial infarction before. [facility] Medical History Macular degeneration GERD (gastroesophageal reflux disease) Paroxysmal atrial fibrillation Essential hypertension Right atrial enlargement Atrial fibrillation HTN (hypertension) SOB (shortness of breath) Fatigue Hypokalemia Home Medications ?Medication ?Instructions ?Recorded ?Last Taken ?Type cetirizine 10 mg capsule 10 mg PO DAILY 03/29/14 Unkn own History esomeprazole magnesium 20 mg 20 mg PO DAILY 10/24/23 U nknown History capsule,delayed release (Nexium) potassium chloride 20 mEq 20 meq PO DAILY #90 TABLETS 10/31/23 Unknown Rx tablet,extended release hydrochlorothiazide 25 mg tablet 25 mg PO DAILY #90 TA BLETS 04/24/24 Unknown Rx diltiazem HCl 120 mg See Rx Instructions .Route 1 09/23/23 Unknown Rx capsule,extended release 24 hr .COMPLEX #90 caps apixaban 5 mg tablet (Eliquis) 5 mg PO BID #180 tabs 0 11/04/24 Unknown Rx benazepril 20 mg tablet See Rx Instructions .Route 0 01/01/25 Unknown Rx .COMPLEX #90 tabs Bacillus 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 coagulans)) latanoprost (PF) 0.005 % eye drops 1 drp ophthalmic (e ye) QDAY 01/07/25 Unknown History Allergy/AdvReac Type Severity Reaction Status Date / Time ciprofloxacin (From Cipro) AdvReac Other Verified 01/07/25 10:20 ciprofloxacin HCl (From AdvReac Other Verified 01/07/25 10:20 Cipro) Family History Father Hypertension Mother Jeanette Gehrig's disease Brother CAD (coronary artery disease) Surgical History History of basal cell carcinoma excision History of bilateral cataract extraction breast cyst removal Social History Smoking Status: Never smoker alcohol intake: never substance use type: does not use caffeine: Yes Type: coffee Number of servings: 1 what type of physical activity do you participate in: none seatbelt use: always do you feel safe at home: Yes ROS ROS Narrative Denies chest pain, nausea vomiting, diaphoresis, Lower extremity edema. All review of systems were negative except as mentioned above in the history of present illness and the other review of systems. Vital Signs Vital Signs Vital Signs: 01/07/25 10:17 01/07/25 10:17 01/07/25 12:17 Temperature 36.5 C L Temperature Source Oral Pulse Rate 86 75 Respiratory Rate 16 23 H Respiratory Effort Normal Non-Labored Respiratory Depth Normal Respiratory Pattern Normal Blood Pressure 152/82 H 136/69 H Blood Pressure Mean 105 91 Pulse Ox 100 100 Oxygen Delivery Method Room Air Room Air Weight Weight: 69.672 kg Body Mass Index (BMI) 27.1 Physical Exam Const alert and no apparent distress Constitutional Narrative: Kyphotic posture. General Appearance: cooperative and uncooperative HEENT normocephalic and head/scalp atraumatic Eyes Eyes Narrative: No icterus Neck no lymphadenopathy Neck Narrative: No thyromegaly Resp normal respiratory effort, no retractions, no use of accessory muscles and clearto auscultation bilaterally Cardio regular rate, regular rhythm, S1 normal heart sound and S2 normal heart sound GI normal to inspection, nondistended, normoactive bowel sounds, soft to palpation,non-tender and non-distended Extremity normal to inspection Extremity Narrative: Normal pulses. No lower extremity edema. Neuro moves all extremities Sensorium / Orientation: awake, alert and oriented to place Psych affect normal Results Lab / Micro Data Attestation: I reviewed the patient's lab results. 01/07/25 11:00 01/07/25 11:00 Labs: Laboratory Results - last 24 hr 01/07/25 11:00: WBC 5.8, RBC 4.66, Hgb 13.6, Hct 41.6, MCV 89.3, MCH 29.2, MCHC 32.7, RDW Std Deviation 46.5 H, RDW Coeff of Wendy 14.4, Plt Count 247, MPV 9.8, Immature Gran % (Auto) 0.200, Neut % (Auto) 60.4, Lymph % (Auto) 26.7, Hale % (Auto) 10.3 H, Eos % (Auto) 1.5, Baso % (Auto) 0.9, Absolute Neuts (auto) 3.5, Absolute Lymphs (auto) 1.56, Nucleated RBC % 0, PT 14.2, INR 1.1, APTT 32.6, D-Dimer Quant (PE/DVT) < 0.27 L, Sodium 138, Potassium 4.3, Chloride 104, Carbon Dioxide 20.3 L, Anion Gap 14, BUN 20 H, Creatinine 0.88, Estim Creat Clear Calc 49.33 L, Est GFR (MDRD) Non-Af 67, BUN/Creatinine Ratio 22.7 H, Glucose 101 H, Calcium 9.5, Troponin T High Sens 656 H*, NT pro BNP II 1762 EKG Follow-up EKG: Attestation: I personally reviewed and interpreted this EKG as follows: Prior EKG tracings: available for review EKG Rhythm Intrepretation: Sinus Rhythm (Very T waves in inferior leads.) Imaging Radiology Impression Chest X-Ray 01/07/25 11:22 IMPRESSION: Mild cardiomegaly. The lungs are clear. Moderate-sized hiatal hernia. Reading Location: [facility] Assessment & Plan Assessment/Plan (1) NSTEMI, initial episode of care: PLAN: Patient presents with atypical type symptoms and the fact that her symptoms were shortness of breath and pain in her shoulders and neck that started a week ago. She describes her symptoms actually getting better during this time. Troponins were elevated at 656. Cannot rule out that these were even higher before. Will continue to cycle her troponins. Patient does take apixaban at home but has been started on heparin drip. Will hold off on any apixaban for now continue the heparin drip. Patient has been seen by cardiology and tentative plan is for her to have a heart catheterizationon the . PLAN: Plan Chronic conditions * Paroxysmal atrial fibrillation: Apixaban being held for now because of being on heparin drip. Continue with diltiazem * GERD: Continue PPI VTE prophylaxis not indicated as patient is already anticoagulated CODE STATUS: Addressed with the patient. Patient wishes to be full code. Charges/Coding Visit Charges Inpatient E&M: 82348 Init Hosp L3 01/07/25 1321 <Electronically signed by Washington Damico DO> Cosigner Signature (if applicable): CC: Dr. Washington Damico DO; ERIN GRANT~ Signed [facility] Work Phone: [phone] 332-892305-28-2025 History and physical note Author Washington Damico [facility] Note Date/Time January 07, 2025 1:21p m [facility] Medical Records Department [address] [place] [address] H&P Exam - Hospitalist 01/07/25 1316 MR#: [id number] Acct: [id number] Name: RITIKA SANTANA Rep #:[id number] : 1945 79 From: Washington Damico DO PCP: ERIN GRANT Status:REG ER Location: ED HPI - General General Date of Service: 01/07/25 Chief Complaint: Shortness of breath HPI Narrative RITIKA SANTANA, is a 79 F who presents with shortness of breath. This is a 79-year-old female with A-fib that is presenting with shortness of breath. Symptoms began a week ago and was primarily noted at night when she would lay down. She would also have discomfort into her shoulders and neck and through toher back. Denied any chest pain. To get short of breath with exertion. Over this past week, her symptoms have gotten better. 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 She had an EKG that was normal sinus rhythm but did have some subtle T wave inversions in inferior leads. And her cardiac enzymes came back at 656. Cardiology was notified and saw the patient and tentative plan is for a cardiac catheterization on the . Patient has never had a myocardial infarction before. [facility] Medical History Macular degeneration GERD (gastroesophageal reflux disease) Paroxysmal atrial fibrillation Essential hypertension Right atrial enlargement Atrial fibrillation HTN (hypertension) SOB (shortness of breath) Fatigue Hypokalemia Home Medications ?Medication ?Instructions ?Recorded ?Last Taken ?Type cetirizine 10 mg capsule 10 mg PO DAILY 03/29/14 Unkn own History esomeprazole magnesium 20 mg 20 mg PO DAILY 10/24/23 U nknown History capsule,delayed release (Nexium) potassium chloride 20 mEq 20 meq PO DAILY #90 TABLETS 10/31/23 Unknown Rx tablet,extended release hydrochlorothiazide 25 mg tablet 25 mg PO DAILY #90 TA BLETS 04/24/24 Unknown Rx diltiazem HCl 120 mg See Rx Instructions .Route 1 09/23/23 Unknown Rx capsule,extended release 24 hr .COMPLEX #90 caps apixaban 5 mg tablet (Eliquis) 5 mg PO BID #180 tabs 0 11/04/24 Unknown Rx benazepril 20 mg tablet See Rx Instructions .Route 0 01/01/25 Unknown Rx .COMPLEX #90 tabs Bacillus 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 coagulans)) latanoprost (PF) 0.005 % eye drops 1 drp ophthalmic (e ye) QDAY 01/07/25 Unknown History Allergy/AdvReac Type Severity Reaction Status Date / Time ciprofloxacin (From Cipro) AdvReac Other Verified 01/07/25 10:20 ciprofloxacin HCl (From AdvReac Other Verified 01/07/25 10:20 Cipro) Family History Father Hypertension Mother Jeanette Gehrig's disease Brother CAD (coronary artery disease) Surgical History History of basal cell carcinoma excision History of bilateral cataract extraction breast cyst removal Social History Smoking Status: Never smoker alcohol intake: never substance use type: does not use caffeine: Yes Type: coffee Number of servings: 1 what type of physical activity do you participate in: none seatbelt use: always do you feel safe at home: Yes ROS ROS Narrative Denies chest pain, nausea vomiting, diaphoresis, Lower extremity edema. All review of systems were negative except as mentioned above in the history of present illness and the other review of systems. Vital Signs Vital Signs Vital Signs: 01/07/25 10:17 01/07/25 10:17 01/07/25 12:17 Temperature 36.5 C L Temperature Source Oral Pulse Rate 86 75 Respiratory Rate 16 23 H Respiratory Effort Normal Non-Labored Respiratory Depth Normal Respiratory Pattern Normal Blood Pressure 152/82 H 136/69 H Blood Pressure Mean 105 91 Pulse Ox 100 100 Oxygen Delivery Method Room Air Room Air Weight Weight: 69.672 kg Body Mass Index (BMI) 27.1 Physical Exam Const alert and no apparent distress Constitutional Narrative: Kyphotic posture. General Appearance: cooperative and uncooperative HEENT normocephalic and head/scalp atraumatic Eyes Eyes Narrative: No icterus Neck no lymphadenopathy Neck Narrative: No thyromegaly Resp normal respiratory effort, no retractions, no use of accessory muscles and clearto auscultation bilaterally Cardio regular rate, regular rhythm, S1 normal heart sound and S2 normal heart sound GI normal to inspection, nondistended, normoactive bowel sounds, soft to palpation,non-tender and non-distended Extremity normal to inspection Extremity Narrative: Normal pulses. No lower extremity edema. Neuro moves all extremities Sensorium / Orientation: awake, alert and oriented to place Psych affect normal Results Lab / Micro Data Attestation: I reviewed the patient's lab results. 01/07/25 11:00 01/07/25 11:00 Labs: Laboratory Results - last 24 hr 01/07/25 11:00: WBC 5.8, RBC 4.66, Hgb 13.6, Hct 41.6, MCV 89.3, MCH 29.2, MCHC 32.7, RDW Std Deviation 46.5 H, RDW Coeff of Wendy 14.4, Plt Count 247, MPV 9.8, Immature Gran % (Auto) 0.200, Neut % (Auto) 60.4, Lymph % (Auto) 26.7, Hale % (Auto) 10.3 H, Eos % (Auto) 1.5, Baso % (Auto) 0.9, Absolute Neuts (auto) 3.5, Absolute Lymphs (auto) 1.56, Nucleated RBC % 0, PT 14.2, INR 1.1, APTT 32.6, D-Dimer Quant (PE/DVT) < 0.27 L, Sodium 138, Potassium 4.3, Chloride 104, Carbon Dioxide 20.3 L, Anion Gap 14, BUN 20 H, Creatinine 0.88, Estim Creat Clear Calc 49.33 L, Est GFR (MDRD) Non-Af 67, BUN/Creatinine Ratio 22.7 H, Glucose 101 H, Calcium 9.5, Troponin T High Sens 656 H*, NT pro BNP II 1762 EKG Follow-up EKG: Attestation: I personally reviewed and interpreted this EKG as follows: Prior EKG tracings: available for review EKG Rhythm Intrepretation: Sinus Rhythm (Very T waves in inferior leads.) Imaging Radiology Impression Chest X-Ray 01/07/25 11:22 IMPRESSION: Mild cardiomegaly. The lungs are clear. Moderate-sized hiatal hernia. Reading Location: [facility] Assessment & Plan Assessment/Plan (1) NSTEMI, initial episode of care: PLAN: Patient presents with atypical type symptoms and the fact that her symptoms were shortness of breath and pain in her shoulders and neck that started a week ago. She describes her symptoms actually getting better during this time. Troponins were elevated at 656. Cannot rule out that these were even higher before. Will continue to cycle her troponins. Patient does take apixaban at home but has been started on heparin drip. Will hold off on any apixaban for now continue the heparin drip. Patient has been seen by cardiology and tentative plan is for her to have a heart catheterizationon the . PLAN: Plan Chronic conditions * Paroxysmal atrial fibrillation: Apixaban being held for now because of being on heparin drip. Continue with diltiazem * GERD: Continue PPI VTE prophylaxis not indicated as patient is already anticoagulated CODE STATUS: Addressed with the patient. Patient wishes to be full code. Charges/Coding Visit Charges Inpatient E&M: 31363 Init Hosp L3 01/07/25 1321 <Electronically signed by Washington Damico DO> Cosigner Signature (if applicable): CC: Dr. Washington Damico DO; ERIN GRANT~ Signed [facility] Work Phone: 1(752) 141-324305-28-2025 History and physical note [facility] Medical Records Department [address] [place] [id number] H&P Exam - Hospitalist 01/07/25 1316 MR#: [id number] Acct: [id number] Name: RITIKA SANTANA Rep #:[id number] : 1945 79 From: Washington Damico DO PCP: ERIN GRANT Status:REG ER Location: ED HPI - General General Date of Service: 01/07/25 Chief Complaint: Shortness of breath HPI Narrative RITIKA SANTANA, is a 79 F who presents with shortness of breath. This is a 79-year-old female with A-fib that is presenting with shortness of breath. Symptoms began a week ago and was primarily noted at night when she would lay down. She would also have discomfort into her shoulders and neck and through toher back. Denied any chest pain. To get short of breath with exertion. Over this past week, her symptoms have gotten better. 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 She had an EKG that was normal sinus rhythm but did have some subtle T wave inversions in inferior leads. And her cardiac enzymes came back at 656. Cardiology was notified and saw the patient and tentative plan is for a cardiac catheterization on the . Patient has never had a myocardial infarction before. [facility] Medical History Macular degeneration GERD (gastroesophageal reflux disease) Paroxysmal atrial fibrillation Essential hypertension Right atrial enlargement Atrial fibrillation HTN (hypertension) SOB (shortness of breath) Fatigue Hypokalemia Home Medications ?Medication ?Instructions ?Recorded ?Last Taken ?Type cetirizine 10 mg capsule 10 mg PO DAILY 03/29/14 Unkn own History esomeprazole magnesium 20 mg 20 mg PO DAILY 10/24/23 U nknown History capsule,delayed release (Nexium) potassium chloride 20 mEq 20 meq PO DAILY #90 TABLETS 10/31/23 Unknown Rx tablet,extended release hydrochlorothiazide 25 mg tablet 25 mg PO DAILY #90 TA BLETS 04/24/24 Unknown Rx diltiazem HCl 120 mg See Rx Instructions .Route 1 09/23/23 Unknown Rx capsule,extended release 24 hr .COMPLEX #90 caps apixaban 5 mg tablet (Eliquis) 5 mg PO BID #180 tabs 0 11/04/24 Unknown Rx benazepril 20 mg tablet See Rx Instructions .Route 0 01/01/25 Unknown Rx .COMPLEX #90 tabs Bacillus 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 coagulans)) latanoprost (PF) 0.005 % eye drops 1 drp ophthalmic (e ye) QDAY 01/07/25 Unknown History Allergy/AdvReac Type Severity Reaction Status Date / Time ciprofloxacin (From Cipro) AdvReac Other Verified 01/07/25 10:20 ciprofloxacin HCl (From AdvReac Other Verified 01/07/25 10:20 Cipro) Family History Father Hypertension Mother Jeanette Gehrig's disease Brother CAD (coronary artery disease) Surgical History History of basal cell carcinoma excision History of bilateral cataract extraction breast cyst removal Social History Smoking Status: Never smoker alcohol intake: never substance use type: does not use caffeine: Yes Type: coffee Number of servings: 1 what type of physical activity do you participate in: none seatbelt use: always do you feel safe at home: Yes ROS ROS Narrative Denies chest pain, nausea vomiting, diaphoresis, Lower extremity edema. All review of systems were negative except as mentioned above in the history of present illness and the other review of systems. Vital Signs Vital Signs Vital Signs: 01/07/25 10:17 01/07/25 10:17 01/07/25 12:17 Temperature 36.5 C L Temperature Source Oral Pulse Rate 86 75 Respiratory Rate 16 23 H Respiratory Effort Normal Non-Labored Respiratory Depth Normal Respiratory Pattern Normal Blood Pressure 152/82 H 136/69 H Blood Pressure Mean 105 91 Pulse Ox 100 100 Oxygen Delivery Method Room Air Room Air Weight Weight: 69.672 kg Body Mass Index (BMI) 27.1 Physical Exam Const alert and no apparent distress Constitutional Narrative: Kyphotic posture. General Appearance: cooperative and uncooperative HEENT normocephalic and head/scalp atraumatic Eyes Eyes Narrative: No icterus Neck no lymphadenopathy Neck Narrative: No thyromegaly Resp normal respiratory effort, no retractions, no use of accessory muscles and clearto auscultation bilaterally Cardio regular rate, regular rhythm, S1 normal heart sound and S2 normal heart sound GI normal to inspection, nondistended, normoactive bowel sounds, soft to palpation,non-tender and non-distended Extremity normal to inspection Extremity Narrative: Normal pulses. No lower extremity edema. Neuro moves all extremities Sensorium / Orientation: awake, alert and oriented to place Psych affect normal Results Lab / Micro Data Attestation: I reviewed the patient's lab results. 01/07/25 11:00 01/07/25 11:00 Labs: Laboratory Results - last 24 hr 01/07/25 11:00: WBC 5.8, RBC 4.66, Hgb 13.6, Hct 41.6, MCV 89.3, MCH 29.2, MCHC 32.7, RDW Std Deviation 46.5 H, RDW Coeff of Wendy 14.4, Plt Count 247, MPV 9.8, Immature Gran % (Auto) 0.200, Neut % (Auto) 60.4, Lymph % (Auto) 26.7, Hale % (Auto) 10.3 H, Eos % (Auto) 1.5, Baso % (Auto) 0.9, Absolute Neuts (auto) 3.5, Absolute Lymphs (auto) 1.56, Nucleated RBC % 0, PT 14.2, INR 1.1, APTT 32.6, D-Dimer Quant (PE/DVT) < 0.27 L, Sodium 138, Potassium 4.3, Chloride 104, Carbon Dioxide 20.3 L, Anion Gap 14, BUN 20 H, Creatinine 0.88, Estim Creat Clear Calc 49.33 L, Est GFR (MDRD) Non-Af 67, BUN/Creatinine Ratio 22.7 H, Glucose 101 H, Calcium 9.5, Troponin T High Sens 656 H*, NT pro BNP II 1762 EKG Follow-up EKG: Attestation: I personally reviewed and interpreted this EKG as follows: Prior EKG tracings: available for review EKG Rhythm Intrepretation: Sinus Rhythm (Very T waves in inferior leads.) Imaging Radiology Impression Chest X-Ray 01/07/25 11:22 IMPRESSION: Mild cardiomegaly. The lungs are clear. Moderate-sized hiatal hernia. Reading Location: [facility] Assessment & Plan Assessment/Plan (1) NSTEMI, initial episode of care: PLAN: Patient presents with atypical type symptoms and the fact that her symptoms were shortness ofbreath and pain in her shoulders and neck that started a week ago. She describes her symptoms actually getting better during this time. Troponins were elevated at 656. Cannot rule out that these wereeven higher before. Will continue to cycle her troponins. Patient does take apixaban at home but has been started on heparin drip. Will hold off on any apixaban for now continue the heparin drip. Patient has been seen by cardiology and tentative plan is forher to have a heart catheterizationon the . PLAN: Plan Chronic conditions * Paroxysmal atrial fibrillation: Apixaban being held for now because of being on heparin drip. Continue with diltiazem * GERD: Continue PPI VTE prophylaxis not indicated as patient is already anticoagulated CODE STATUS: Addressed with the patient. Patient wishes to be full code. Charges/Coding Visit Charges Inpatient E&M: 72635 Init Hosp L3 01/07/25 1321 Cosigner Signature (if applicable): CC: Dr. Washington Damico DO; ERIN GRANT~ Signed [facility]05-28-2025 Radiology Diagnostic study note [facility] Imaging Services [address] [place] [address] Chest PA and Lateral MR#: [id number] Acct: [id number] Name: RITIKA SANTANA Rep #: [id number] : 1945 F 79 From: Danyel De La Rosa MD PCP: ERIN GRANT Status: REG ER Study:Chest PA and Lateral Date of Exam: 01/07/25 Exam# [id number] Ordering Dr: Houston Day DO PROCEDURE: CHEST PA AND LATERAL 01/07/2025 REASON FOR EXAM: SOB TECHNIQUE: Frontal and lateral views of the chest. COMPARISON: None FINDINGS: Hardware: EKG electrodes are seen. Heart: Mild cardiomegaly. Tortuosity of the descending thoracic aorta. Mediastinum: The mediastinal contour is unremarkable. Lungs: Elevation of the right hemidiaphragm. Lungs are clear. Bones: Degenerative changes are identified within the thoracic spine. Increasedkyphosis. Moderate-sized hiatal hernia. RAD/Chest PA and Lateral IMPRESSION: Mild cardiomegaly. The lungs are clear. Moderate-sized hiatal hernia. Reading Location: [place] [address] CC: Dr. Houston Morales DO; ERIN GRANT ~ Almond Paste Molder: Signed [facility]03-13-2025 Evaluation note* Diagnosis Onset Date Resolution Status Admit Date Essential hypertension acute [facility] 2024 1:10pm Paroxysmal atrial fibrillation acute October 23, 2024 1:10pm NSTEMI, initial episode of care acut e January 07, 2025 1:00pm [facility] Work Phone: 1(691) 800-430803-13-2025 Evaluation note* Diagnosis Onset Date Resolution Status Admit Date Essential hypertension acute [facility] 2024 1:10pm Paroxysmal atrial fibrillation acute October 23, 2024 1:10pm Essential hypertension acute [facility] y 2024 1:00pm NSTEMI, initial episode of care acut e January 07, 2025 1:00pm Paroxysmal atrial fibrillation acute January 07, 2025 1:00pm [facility] Work Phone: 1(338) 174-860703-13-2025 Evaluation note* Diagnosis Onset Date Resolution Status Admit Date Essential hypertension inactive [facility] 2024 1:10pm Paroxysmal atrial fibrillation inact [facility]ar October 23, 2024 1:10pm NSTEMI, initial episode of care acut e January 07, 2025 1:00pm Essential hypertension inactive [facility] 2024 1:00pm Paroxysmal atrial fibrillation inact richar January 07, 2025 1:00pm [facility] Work Phone: 1(372) 435-633303-13-2025 Evaluation note* Diagnosis Onset Date Resolution Status Admit Date Essential hypertension acute [facility] 2024 1:10pm Paroxysmal atrial fibrillation chron ic October 23, 2024 1:10pm Essential hypertension acute Ma y 2024 1:00pm NSTEMI, initial episode of care acut e January 07, 2025 1:00pm Paroxysmal atrial fibrillation chron ic January 07, 2025 1:00pm Anemia acute February 11, 2025 12:50pm Atherosclerosis of coronary artery acute February 11, 2025 1 2:50pm Essential hypertension acute Ju 2024 12:50pm S/P CABG x 4 acute February 11 12:50pm SOB (shortness of breath) acute February 11, 2025 12:50pm Hypokalemia chronic February 11 12:50pm Paroxysmal atrial fibrillation chron ic February 11, 2025 12:50pm [facility] Work Phone: 1(272) 587-749309-17-2021 NoteHNO ID: [id number] Author: Lissa Kimball APRN.WEBSPHERE ADMINISTRATOR Service: ? Author Type: Nurse Practitioner Type: Progress Notes Filed: 04/29/2021 1:25 PM Note Text: This note was created using NoteWriter. Subjective Ritika Santana is a 75 year old female. 75 year old female with PMH acid reflux presents with concerns for COVID. Acute onset last night +chills +headache +diarrhea. Endorses she had COVID back in August, and this feels similar. States they had friends from [place] come in over this past weekend. The history is provided by the patient. No speech language specialist was used. URI She complains of cough. There is no chest tightness, difficulty breathing, frequent throat clearing, hemoptysis, hoarse voice, shortness of breath, sputum production or wheezing. This is a new problem. The current episode started yesterday. The problem occurs constantly. The cough is non-productive. Associated symptoms include headaches. Pertinent negatives include no appetite change, chest pain, dyspnea on exertion, ear congestion, ear pain, fever, heartburn, malaise/fatigue, myalgias, nasal congestion, orthopnea, PND, postnasal drip, rhinorrhea, sneezing, sore throat, sweats, trouble swallowing or weight loss. Her symptoms are aggravated by nothing. Her symptoms are alleviated by nothing. She reports no improvement on treatment. There are no known risk factors for lung disease. There is no history of asthma, bronchiectasis, bronchitis, COPD, emphysema or pneumonia. PAST MEDICAL HISTORY Diagnosis Date - Benign neoplasm of colon - Ear problems - Heartburn - Hiatal hernia - Personal history of colonic polyps - Unspecified vertiginous syndromes and labyrinthine disorders PAST SURGICAL HISTORY Procedure Laterality Date - COLONOSCOP W/ OR W/O [facility] SPEC 06/12/12 Colonoscopy repeat 2 years - COLONOSCOPY W/BX 04/03/12 submucosal injection - PAST SURGICAL HISTORY OF left breast cyst removed x 2386.9 ALLERGIES Ciprofloxacin MEDICATIONS ELIQUIS 5 mg tab(s) benazepril (LOTENSIN) 20 mg tablet Take 20 mg by mouth once daily. dilTIAZem CD (CARDIZEM CD, CARTIA XT) 120 mg 24 hr capsule Take 120 mg by mouth once daily. montelukast (SINGULAIR) 10 mg tablet Take 10 mg by mouth once daily. potassium chloride 20 mEq TbER Take 1 tablet by mouth once daily. hydrochlorothiazide 50 mg tablet Take 1 tablet by mouth once daily. therapeutic multivitamin tablet Take 1 tablet by mouth once daily. Fish Oil-[place]-3 Fatty Acids (FISH OIL OMEGA 3-6-9) 300-1,000 mg CpDR Take 1 capsule by mouth once daily. COMPOUNDED PRESCRIPTION Potassium 95 mg takes 1 tablet daily COMPOUNDED PRESCRIPTION Cranberry 1000 mg takes 1 capsule daily. FAMILY HISTORY Problem Relation Age of Onset - other (ALS [Other]) Mother - Hypertension Father Social History Tobacco Use - Smoking status: Never Smoker - Smokeless tobacco: Never Used Substance Use Topics - Alcohol use: Yes Comment: ocas - Drug use: No Review of Systems Constitutional: Negative for appetite change, fever, malaise/fatigue and weight loss. HENT: Positive for congestion. Negative for dental problem, drooling, ear discharge, ear pain, facial swelling, hearing loss, hoarse voice, mouth sores, nosebleeds, postnasal drip, rhinorrhea, sneezing, sore throat and trouble swallowing. Eyes: Negative for photophobia, pain, discharge, redness, itching and visual disturbance. Respiratory: Positive for cough. Negative for apnea, hemoptysis, sputum production, choking, chest tightness, shortness of breath and wheezing. Cardiovascular: Negative for chest pain, dyspnea on exertion and PND. Gastrointestinal: Negative for abdominal pain, diarrhea, heartburn, nausea and vomiting. Musculoskeletal: Negative for myalgias. Skin: Negative for color change, pallor, rash and wound. Allergic/Immunologic: Negative for environmental allergies, food allergies and immunocompromised state. Neurological: Positive for headaches. Negative for dizziness, seizures, facial asymmetry, light-headedness and numbness. Hematological: Negative for adenopathy. Does not bruise/bleed easily. Psychiatric/Behavioral: Negative for agitation and behavioral problems. Objective BP 162/90 Pulse 100 Temp (!) 38 ?C (100.4 ?F) Resp 18 Wt 66.7 kg (147 lb) SpO2 97% Physical Exam Vitals and nursing note reviewed. Constitutional: General: She is not in acute distress. Appearance: Normal appearance. She is normal weight. She is not ill-appearing, toxic-appearing or diaphoretic. HENT: Head: Normocephalic and atraumatic. Right Ear: Ear canal and external ear normal. Left Ear: Ear canal and external ear normal. Nose: Nose normal. No congestion or rhinorrhea. Mouth/Throat: Mouth: Mucous membranes are moist. Pharynx: No oropharyngeal exudate or posterior oropharyngeal erythema. Eyes: General: Right eye: No discharge. Left eye: No discharge. Extraocular Movements: Extra (more content not included)...[facility]07-21-2021 NoteHNO ID: [id number] Author: Carmen Johnson PA-C Service: ? Author Type: Physician Communications Assistant Type: Progress Notes Filed: 03/02/2021 6:00 PM Note Text: This note was created using [employer]. Subjective Ritika Santana is a 75 year old female. HPI Patient presents with a sore on her leg for 2 Months. She saw her pcp who placed her on bactrim 2 weeks ago. She finished it several days ago. She is scheduled to see dermatology in 2 days. She noticed the side was getting more red and was concerned for 'sepsis so she came in for evaluation. It does chronically seep some fluid. No fever or chills. Review of Systems Constitutional: Negative. HENT: Negative. Respiratory: Negative. Cardiovascular: Negative. Gastrointestinal: Negative. Musculoskeletal: Left leg sore All other systems reviewed and are negative. PAST MEDICAL HISTORY Diagnosis Date - Benign neoplasm of colon - Ear problems - Heartburn - Hiatal hernia - Personal history of colonic polyps - Unspecified vertiginous syndromes and labyrinthine disorders Current Outpatient Medications Medication Sig Dispense Refill - doxycycline (VIBRA-TABS) 100 mg tablet Take 1 tablet by mouth twice daily for 5 days. 10 tablet 0 - ELIQUIS 5 mg tab(s) - benazepril (LOTENSIN) 20 mg tablet Take 20 mg by mouth once daily. - dilTIAZem CD (CARDIZEM CD, CARTIA XT) 120 mg 24 hr capsule Take 120 mg by mouth once daily. - montelukast (SINGULAIR) 10 mg tablet Take 10 mg by mouth once daily. - potassium chloride 20 mEq TbER Take 1 tablet by mouth once daily. - hydrochlorothiazide 50 mg tablet Take 1 tablet by mouth once daily. 0 - therapeutic multivitamin tablet Take 1 tablet by mouth once daily. 0 - Fish Oil-Wheeling-3 Fatty Acids (FISH OIL OMEGA 3-6-9) 300-1,000 mg CpDR Take 1 capsule by mouth once daily. 0 - COMPOUNDED PRESCRIPTION Potassium 95 mg takes 1 tablet daily 0 - COMPOUNDED PRESCRIPTION Cranberry 1000 mg takes 1 capsule daily. 0 No current facility-administered medications for this visit. PAST SURGICAL HISTORY Procedure Laterality Date - COLONOSCOP W/ OR W/O BRSH SPEC 06/12/12 Colonoscopy repeat 2 years - COLONOSCOPY W/BX 04/03/12 submucosal injection - PAST SURGICAL HISTORY OF left breast cyst removed x 1336.9 FAMILY HISTORY Problem Relation Age of Onset - other (ALS [Other]) Mother - Hypertension Father Social History Tobacco Use - Smoking status: Never Smoker - Smokeless tobacco: Never Used Substance Use Topics - Alcohol use: Yes Comment: ocas - Drug use: No Objective BP 122/72 Pulse 90 Temp 37.1 ?C (98.8 ?F) (Tympanic) Resp 18 Wt 67.7 kg (149 lb 3.2 oz) SpO2 98% Physical Exam Vitals reviewed. Constitutional: Appearance: Normal appearance. HENT: Head: Normocephalic and atraumatic. Musculoskeletal: Legs: Comments: Large raised irregular lesion with open scabbing and some mild erythema surrounding on the posterior left calf. No significant surrounding erythema. Some mild surrounding the wound edges. Does appear to be draining some serous fluid. No sign of drainable abscess. Neurological: Mental Status: She is alert. Assessment and Plan ASSESSMENT/PLAN: 1. Skin lesion - ICD9: 709.9, ICD10: L98.9 Patient states that the area is gotten a little more swollen and painful the past few days so I will start her on doxy for 5 days until she can see dermatology. Really does not appear significantly infected however is swollen but likely chronically this way. She is to see dermatology in 2 days, likely needs a biopsy to rule out cancerous lesion. Discussed all of this with her. She is agreeable with plan. SHAWNEE [facility]02-24-2021 NotePatient Outreach (COVAMN) RITIKA SANTANA ([id number]) 1945 F Date Time Provider Department 10/06/20 NOEL MARROQUIN During your visit today, we recorded the following information about you: Allergies As of Date: 10/06/2020 Noted Allergy Reaction CIPROFLOXACIN 08/20/2020 14 - Other: See Comments Comments: c-diff Date Reviewed: 08/23/2020 Reviewed by: Gilmar ([employer]) Mayo - Fully Assessed Order(s):SARS-COVID VACCINE 1ST DOSE APPT [[id number]] Order #: [id number] FUTURE Prescriptions as of 10/06/2020 Sig: ELIQUIS 5 MG TABLET BENAZEPRIL 20 MG TABLET Take 20 mg by mouth once jovany* DILTIAZEM SR 120 MG 24 HR CAP Take 120 mg by mouth once colin* MONTELUKAST 10 MG TABLET Take 10 mg by mouth once jovany* POTASSIUM CHLORIDE ER 20 MEQ * Take 1 tablet by mouth once d* * HYDROCHLOROTHIAZIDE 50 MG TAB* Take 1 tablet by mouth once d* * THERAPEUTIC MULTIVITAMIN TABL* Take 1 tablet by mouth once d* * OMEGA-3 FATTY ACIDS-FISH OIL * Take 1 capsule by mouth once * * COMPOUNDED PRESCRIPTION Potassium 95 mg takes 1 table* * COMPOUNDED PRESCRIPTION Cranberry 1000 mg takes 1 cap* Problem List As Of Date 10/06/2020 Noted Resolved Hiatal hernia [K44.9] Ear problems [H93.90] Benign neoplasm of colon [D12.6] 04/03/2012 Special screening for malignant neoplasms, colo*04/03/2012 Letter Text Encounter Status:Closed by [facility] on 10/11/20[facility] Evaluation + Plan note Future Appointments Appointment Date:05/24/2021 08:15:00 AM Scheduled Provider: Location:[facility] Appointment Type:XR Esophogram W/Barium Tablet Appointment Date:07/19/2021 10:10:00 AM Scheduled Provider:SHANNA MADRIGAL Location:[facility] Appointment Type: OV Follow Up Future Scheduled Tests Laboratory* Stool Culture 05/02/21 * Complete Blood Count 01/17/21 * Lipid Profile 01/17/21 * Complete Metabolic Panel 01/17/21 Radiology* BD Bone Density DEXA Axial Skeleton 01/17/21 * XR Esophogram W/Barium Tablet 05/24/21 * MA Mammo Screening Bilateral w/ Santo 01/17/21 [facility] Evaluation + Plan note Future Appointments Appointment Date:06/28/2021 02:00:00 PM Scheduled Provider: Location:[facility] Appointment Type:MA Mammogram Screening Bilateral w/ Santo Appointment Date:06/28/2021 02:30:00 PM Scheduled Provider: Location:[facility] Appointment Type:BD Bone Density DEXA Axial Skeleton Appointment Date:07/19/2021 10:10:00 AM Scheduled Provider:SHANNA MADRIGAL Location:[facility] Appointment Type:PC OV Follow Up Future Scheduled Tests Laboratory* Stool Culture 05/02/21 * Complete Blood Count 01/17/21 * Lipid Profile 01/17/21 * Complete Metabolic Panel 01/17/21 Radiology* BD Bone Density DEXA Axial Skeleton 06/28/21 * MA Mammo Screening Bilateral w/ Santo 06/28/21 [facility] Evaluation + Plan note Future Appointments Appointment Date:07/19/2021 10:10:00 AM Scheduled Provider:SHANNA MADRIGAL Location:[facility] Appointment Type: OV Follow Up Future Scheduled Tests Laboratory* Stool Culture 05/02/21 * Complete Blood Count 01/17/21 * Lipid Profile 01/17/21 * Complete Metabolic Panel 01/17/21 [facility] Evaluation + Plan note Future Appointments Appointment Date:05/08/2025 01:00:00 PM Scheduled Provider:BECKY MCKNIGHT Location:[facility] Appointment Type:PC OV [facility] Evaluation note* Diagnosis CAD, multiple vessel- Primary CAD, multiple vessel NSTEMI (non-ST elevated myocardial infarction) (HCC) Acute myocardial infarction, subendocardial infarction, episode of care unspecified NSTEMI (non-ST elevated myocardial infarction) (HCC) Acute myocardial infarction, subendocardial infarction, episode of care unspecified GERD (gastroesophageal reflux disease) Esophageal reflux A-fib (CMS/HCC) (HCC) Atrial fibrillation HTN (hypertension) Unspecified essential hypertension Anxiety Anxiety state, unspecified [facility] Diagnosis S/P CABG (coronary artery bypass graft)- Primary Postsurgical aortocoronary bypass status [facility] Narrative No data available for this section [facility] Discharge instructions No data available for this section [facility] Discharge instructionsAmbulatory Orders* Phase II, Outpatient Cardiac Rehab Location: None Selected [facility] Work Phone: Progress note No data available for this section [facility] Reason for referral (narrative)No reason for referral information availableWJ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) Procedures [place] CABG W/ARTERIAL GRAFT THREE ARTERIAL GRAFTS [place] ECHO TRANSESOPHAG R-T 2D W/PRB IMG ACQUIS I&R Lacho Coreas MD [address] [place] [address] [address] [place] [address] Phone: tel: fax: Referral ID Status Reason Start Date Expiration Date Visits Re quested Visits Authorized [id number] 01/09/2025 1 1 [facility] Health Summary Purpose Family History Relationship Condition Age at Onset Recorded Date/T nakul father Hypertension Unknown mother Amyotrophic lateral sclerosis Unknown brother Coronary artery disease Unknown Advance Directives Advance Directive Response Recorded Date/ Time Living Will Yes March 26 4 3:24am Do you have a Healthcare Power of Cnc Lathe Machinist? Yes March 26, 2014 3:24am Do you have a Healthcare Power of Cnc Lathe Machinist? Yes January 07, 2025 10:17am Advance Directives Yes March 26, 2014 3:24am Advance Directive Response Recorded Date/ Time Living Will Yes March 26 4 3:24am Do you have a Healthcare Power of Cnc Lathe Machinist? Yes March 26, 2014 3:24am Do you have a Healthcare Power of Cnc Lathe Machinist? Yes January 07, 2025 3:40pm Advance Directives Yes March 26, 2014 3:24am Date Activated Date Inactivated Comments 01/09/2025 8:42 AM 01/26/2025 5:55 PM Date Activated Date Inactivated Comments 01/09/2025 8:42 AM 01/26/2025 5:55 PM Chief Complaint and Reason for Visit Chief Complaint Admit Date 1 Y FU/PREV PFM October 23, 2024 1:1 0pm Increased HAMILTON, angina symptoms. December 9:06am NSTEMI January 07, 2025 1:00p m sob January 07, 2025 1:16p m Reason for Visit Admit Date Essential hypertension October 23, 2024 1:10pm Paroxysmal atrial fibrillation October 1:10pm NSTEMI, initial episode of care December 1:00pm Chief Complaint Admit Date 1 Y FU/PREV PFM October 23, 2024 1:1 0pm Increased HAMILTON, angina symptoms. December 9:06am NSTEMI January 07, 2025 1:00p m sob January 07, 2025 1:16p m NSTEMI January 07, 2025 4:42p m Chief Complaint Admit Date 1 Y FU/PREV PFM October 23, 2024 1:1 0pm Increased HAMILTON, angina symptoms. December 9:06am NSTEMI January 07, 2025 1:00p m sob January 07, 2025 1:16p m NSTEMI January 07, 2025 4:42p m NSTEMI January 08, 2025 10:38 am NSTEMI January 08, 2025 11:15 am Reason for Visit Admit Date Essential hypertension October 23, 2024 1:10pm Paroxysmal atrial fibrillation October 1:10pm Essential hypertension January 07, 2025 1: 00pm NSTEMI, initial episode of care December 1:00pm Paroxysmal atrial fibrillation January 07, 2025 1:00pm Chief Complaint Admit Date 1 Y FU/PREV PFM October 23, 2024 1:1 0pm Increased HAMILTON, angina symptoms. December 9:06am NSTEMI January 07, 2025 1:00p m sob January 07, 2025 1:16p m NSTEMI January 07, 2025 4:42p m NSTEMI January 08, 2025 10:38 am NSTEMI January 08, 2025 11:15 am NSTEMI January 09, 2025 9:12a m LAB WORK January 28, 2025 5:00 am LAB WORK February 03, 2025 5:00 am S/P [facility] 01/12February 11, 2025 12:50 pm Reason for Visit Admit Date Essential hypertension October 23, 2024 1:10pm Paroxysmal atrial fibrillation October 1:10pm NSTEMI, initial episode of care December 1:00pm Essential hypertension January 07, 2025 1: 00pm Paroxysmal atrial fibrillation January 07, 2025 1:00pm Chief Complaint Admit Date 1 Y FU/PREV PFM October 23, 2024 1:1 0pm Increased HAMILTON, angina symptoms. December 9:06am NSTEMI January 07, 2025 1:00p m sob January 07, 2025 1:16p m NSTEMI January 07, 2025 4:42p m NSTEMI January 08, 2025 10:38 am NSTEMI January 08, 2025 11:15 am NSTEMI January 09, 2025 9:12a m LAB WORK January 28, 2025 5:00 am LAB WORK February 03, 2025 5:00 am LAB WORK February 04, 2025 4:00 am S/P [facility] 01/12February 11, 2025 12:50 pm INT XRAY AND LAB ORDERS February 11, 2025 2 :09pm Reason for Visit Admit Date Essential hypertension October 23, 2024 1:10pm Paroxysmal atrial fibrillation October 1:10pm Essential hypertension January 07, 2025 1: 00pm NSTEMI, initial episode of care December 1:00pm Paroxysmal atrial fibrillation January 07, 2025 1:00pm Anemia February 11, 2025 12:50 pm Atherosclerosis of coronary artery February 11, 2025 12:50pm Essential hypertension February 11, 2025 12 :50pm S/P CABG x 4 February 11, 2025 12:50 pm SOB (shortness of breath) February 11, 2025 12:50pm Hypokalemia February 11, 2025 12:50 pm Paroxysmal atrial fibrillation February 11, 2025 12:50pm Additional Source Comments INFORMATION SOURCE (unrecogn ized section and content) DATE CREATED AUTHOR 09/07/2021 [facility] DATE CREATED AUTHOR AUTHOR'S ORGANIZ ATION 10/03/2023 [facility] ([place]) DATE CREATED AUTHOR AUTHOR'S ORGANIZ ATION 02/04/2025 [facility] DATE CREATED AUTHOR AUTHOR'S ORGANIZ ATION 02/13/2025 [facility] DATE CREATED AUTHOR AUTHOR'S ORGANIZ ATION 02/21/2025 [facility] Care Team (unrecognized sect ion and content) Care Team Personnel Name: SHANNA MADRIGAL Position: P4 Advanced Practice Nurse Member Role: Primary Care Physician Address: Address: [address] [place] [address] Name: CHELSIE LAZO MA, CCC-A Member Role: Flexible Babysitter Address: Address: [address] [place] [address], [address] Care Team Related Persons Name: NONE, NONE Care Team Personnel Name: SHANNA MADRIGAL Position: P4 Advanced Practice Nurse Member Role: Primary Care Physician Address: Address: [address] [place] [address] Name: CHELSIE LAZO MA, CCC-A Member Role: Flexible Babysitter Address: Address: [address] [place] [address] Care Team Related Persons Name: NONE, NONE Patient Care team informatio n (unrecognized section and content) Team Status: Active Member Role Status Dates ERIN GRANT Primary Care Provider Active Team Status: Inactive Member Role Status Dates BECYK MAST MEDICINE MAN Primary Care Provider Active Start: October 23, 2024 End: October 23, 2024 BECKY MAST , MEDICINE MAN Referring Provider Active Sta rt: October 23, 2024 End: October 23, 2024 Layla MALLORY, PA Attending Provider Active Start: October 23, 2024 End: October 23, 2024 Team Status: Active Member Role Status Dates BECKYGOLD MCDONALDNP Primary Care Provider Active Start: January 07, 2025 BECKY CHARLEY , MEDICINE MAN Referring Provider Active Sta rt: January 07, 2025 SHAWNEE Bright Attending Provider Active St art: January 07, 2025 Team Status: Active Member Role Status Dates BECKY MAST MEDICINE MAN Primary Care Provider Active Start: January 07, 2025 Dr. Houston Morales , DO Emergency Provider Activ e Start: January 07, 2025 Dr. Washington Damico , Admit Provider Active Star t: January 07, 2025 Dr. Washington Damico , DO Attending Provider Active Start: January 07, 2025 Team Status: Active Member Role Status Dates BECKYJOSE ALBERTO MCKNIGHT , MEDICINE MAN Primary Care Provider Active Start: January 07, 2025 Dr. Houston Morales , DO Emergency Provider Activ e Start: January 07, 2025 Dr. Washington Damico , DO Attending Provider Active Start: January 07, 2025 Team Status: Active Member Role Status Dates BECKY MAST , MEDICINE MAN Primary Care Provider Active Start: January 07, 2025 Dr. Houston Morales , DO Emergency Provider Activ e Start: January 07, 2025 Dr. Washington Damico , Admit Provider Active Star t: January 07, 2025 Dr. Washington Damico DO Attending Provider Active Start: January 07, 2025 Dr. Richard White MD Other Provider Active Star t: January 07, 2025 Team Status: Active Member Role Status Dates BECKY MAST , MEDICINE MAN Primary Care Provider Active Start: January 07, 2025 Dr. Houston Morales , DO Emergency Provider Activ e Start: January 07, 2025 Dr. Washington Damico , Admit Provider Active Star t: January 07, 2025 Dr. Washington Damico , Other Provider Active Star t: January 07, 2025 Dr. Richard White MD Attending Provider Active Start: January 07, 2025 Dr. Richard White MD Other Provider Active Star t: January 07, 2025 Team Status: Inactive Member Role Status Dates BECKY MAST , MEDICINE MAN Primary Care Provider Active Start: January 07, 2025 End: January 07, 2025 GOLD GRANTNP Referring Provider Active Sta rt: January 07, 2025 End: January 07, 2025 SHAWNEE Bright Attending Provider Active St art: January 07, 2025 End: January 07, 2025 Team Status: Inactive Member Role Status Dates ERIN GRANT Primary Care Provider Active Start: January 07, 2025 End: January 08, 2025 Dr. Houston Morales , DO Emergency Provider Activ e Start: January 07, 2025 End: January 08, 2025 Dr. Washington Damico , DO Admit Provider Active Star t: January 07, 2025 End: January 08, 2025 Dr. Washington Damico , DO Other Provider Active Star t: January 07, 2025 End: January 08, 2025 Dr. Richard White MD Other Provider Active Star t: January 07, 2025 End: January 08, 2025 Dr. Danial Salazar , DO Attending Provider Active Start: January 07, 2025 End: January 08, 2025 Team Status: Active Member Role Status Dates ERIN GRANT Primary Care Provider Active Start: January 08, 2025 Dr. Houston Morales , DO Emergency Provider Activ e Start: January 08, 2025 Dr. Washington Damico , DO Admit Provider Active Star t: January 08, 2025 Dr. Washington Damico , DO Other Provider Active Star t: January 08, 2025 Dr. Richard White MD Other Provider Active Star t: January 08, 2025 Dr. Danial Salazar , DO Attending Provider Active Start: January 08, 2025 Dr. Danial Salazar , DO Other Provider Active Start: January 08, 2025 Team Status: Active Member Role Status Dates ERIN GRANT Primary Care Provider Active Start: January 08, 2025 Dr. Houston Morales , DO Emergency Provider Activ e Start: January 08, 2025 Dr. Washington Damico , DO Admit Provider Active Star t: January 08, 2025 Dr. Washington Damico , DO Other Provider Active Star t: January 08, 2025 Dr. Richard White MD Attending Provider Active Start: January 08, 2025 Dr. Richard White MD Other Provider Active Star t: January 08, 2025 Dr. Danial Salazar , DO Other Provider Active Start: January 08, 2025 Academic Physician Relationship Specialty Start Date End Date Becky Mcknight [address] [place] [id number] PCP - General Nurse Practitioner 01/08/25 Team Status: Active Member Role/Relationship Status Dates BECKY MAST , MEDICINE MAN Primary Care Provider Active Team Status: Inactive Member Role/Relationship Status Dates BECKY MAST , MEDICINE MAN Primary Care Provider Active Start: October 23, 2024 End: October 23, 2024 BECKY MAST , MEDICINE MAN Referring Provider Active Sta rt: October 23, 2024 End: October 23, 2024 Layla MALLORY, PA Attending Provider Active Start: October 23, 2024 End: October 23, 2024 Team Status: Inactive Member Role/Relationship Status Dates BECKY MAST , MEDICINE MAN Primary Care Provider Active Start: January 07, 2025 End: January 07, 2025 BECKY MAST , MEDICINE MAN Referring Provider Active Sta rt: January 07, 2025 End: January 07, 2025 SHAWNEE Bright Attending Provider Active St art: January 07, 2025 End: January 07, 2025 Team Status: Inactive Member Role/Relationship Status Dates BECKY MAST , MEDICINE MAN Primary Care Provider Active Start: January 07, 2025 End: January 08, 2025 Dr. Houston Morales , DO Emergency Provider Activ e Start: January 07, 2025 End: January 08, 2025 Dr. Washington Damico , DO Admit Provider Active Star t: January 07, 2025 End: January 08, 2025 Dr. Washington Damico , DO Other Provider Active Star t: January 07, 2025 End: January 08, 2025 Dr. Richard White MD Other Provider Active Star t: January 07, 2025 End: January 08, 2025 Dr. Danial Salazar , DO Attending Provider Active Start: January 07, 2025 End: January 08, 2025 Team Status: Active Member Role/Relationship Status Dates BECKYJOSE ALBERTO MCKNIGHT , MEDICINE MAN Primary Care Provider Active Start: January 07, 2025 Dr. Houston Morales , DO Emergency Provider Activ e Start: January 07, 2025 Dr. Washington Damico , DO Attending Provider Active Start: January 07, 2025 Team Status: Active Member Role/Relationship Status Dates BECKY MAST , MEDICINE MAN Primary Care Provider Active Start: January 07, 2025 Dr. Houston Morales , DO Emergency Provider Activ e Start: January 07, 2025 Dr. Washington Damico , DO Admit Provider Active Star t: January 07, 2025 Dr. Washington Damico , DO Other Provider Active Star t: January 07, 2025 Dr. Richard White MD Attending Provider Active Start: January 07, 2025 Dr. Richard White MD Other Provider Active Star t: January 07, 2025 Team Status: Active Member Role/Relationship Status Dates BECKY MAST , MEDICINE MAN Primary Care Provider Active Start: January 08, 2025 Dr. Houston Morales , DO Emergency Provider Activ e Start: January 08, 2025 Dr. Washington Damico , DO Admit Provider Active Star t: January 08, 2025 Dr. Washington Damico , DO Other Provider Active Star t: January 08, 2025 Dr. Richard White MD Other Provider Active Star t: January 08, 2025 Dr. Danial Salazar , DO Attending Provider Active Start: January 08, 2025 Dr. Danial Salazar , DO Other Provider Active Start: January 08, 2025 Team Status: Active Member Role/Relationship Status Dates BECKY MAST , MEDICINE MAN Primary Care Provider Active Start: January 08, 2025 Dr. Houston Morales , DO Emergency Provider Activ e Start: January 08, 2025 Dr. Washington Damico , DO Admit Provider Active Star t: January 08, 2025 Dr. Washington Damico , DO Other Provider Active Star t: January 08, 2025 Dr. Richard White MD Attending Provider Active Start: January 08, 2025 Dr. Richard White MD Other Provider Active Star t: January 08, 2025 Dr. Danial Salazar , DO Other Provider Active Start: January 08, 2025 Team Status: Active Member Role/Relationship Status Dates BECKY MAST , MEDICINE MAN Primary Care Provider Active Start: January 09, 2025 Dr. Houston Morales , DO Emergency Provider Activ e Start: January 09, 2025 Dr. Washington Damico , DO Admit Provider Active Star t: January 09, 2025 Dr. Washington Damico , DO Other Provider Active Star t: January 09, 2025 Dr. Richard White MD Other Provider Active Star t: January 09, 2025 Dr. Danial Salazar , DO Attending Provider Active Start: January 09, 2025 Dr. Danial Salazar , DO Other Provider Active Start: January 09, 2025 Team Status: Active Member Role/Relationship Status Dates BECKY MAST , MEDICINE MAN Primary Care Provider Active Start: January 28, 2025 Sukhdev HAND MD Attending Provider Active S tart: January 28, 2025 Team Status: Active Member Role/Relationship Status Dates BECKY MAST , MEDICINE MAN Primary Care Provider Active Start: February 03, 2025 Sukhdev HAND MD Attending Provider Active S tart: February 03, 2025 Team Status: Active Member Role/Relationship Status Dates BECKY MAST , MEDICINE MAN Primary Care Provider Active Start: February 04, 2025 Sukhdev HAND MD Attending Provider Active S tart: February 04, 2025 Team Status: Inactive Member Role/Relationship Status Dates BECKY MAST , MEDICINE MAN Primary Care Provider Active Start: February 11, 2025 End: February 11, 2025 BECKY MAST , MEDICINE MAN Referring Provider Active Sta rt: February 11, 2025 End: February 11, 2025 SHAWNEE Bright Attending Provider Active St art: February 11, 2025 End: February 11, 2025 Team Status: Active Member Role/Relationship Status Dates BECKY MAST , MEDICINE MAN Primary Care Provider Active Start: February 04, 2025 Sukhdev HAND MD Attending Provider Active S tart: February 04, 2025 Sukhdev HAND MD Referring Provider Active S tart: February 04, 2025 Team Status: Inactive Member Role/Relationship Status Dates BECKY MAST , MEDICINE MAN Primary Care Provider Active Start: February 11, 2025 End: February 11, 2025 SHAWNEE Bright Attending Provider Active St art: February 11, 2025 End: February 11, 2025 SHAWNEE Bright Referring Provider Active St art: February 11, 2025 End: February 11, 2025 Academic Physician Relationship Specialty Start Date End Date Brian Mcknightista [address] [place] [id number] PCP - General Nurse Practitioner 01/08/25 Goals (unrecognized section and content) Goals may be documented in a n alternate section Scheduled Active and Recently Administ ered Medications (unrecognized section and content) Medication Order 01/24/2025 01/25/2025 01/26/2025 acetaminophen (Tylenol) tablet 1,000 mg (COMPLETED) 1,000 mg, Oral, Once, On 01/24/25 at 2315, For 1 dose, Maximum dose of acetaminophen is 4000 mg from all sources in 24 hours. 230 (Given - Provider: Lissa Malloy RN) acetaminophen (Tylenol) tablet 1,000 mg (COMPLETED) 1,000 mg, Oral, Once, On 01/25/25 at 2100, For 1 dose, Maximum dose of acetaminophen is 4000 mg from all sources in 24 hours. 2049 (Given - Provider: Amairani Amador, JUAN DAVID) acetaminophen (Tylenol) tablet 1,000 mg (COMPLETED) 1,000 mg, Oral, Once, On 01/26/25 at 1300, For 1 dose, Maximum dose of acetaminophen is 4000 mg from all sources in 24 hours. 1301 (Given - Provider: Mary Ramirez, JUAN DAVID) acetaminophen (Tylenol) tablet 650 mg (COMPLETED) 650 mg, Oral, Once, On 01/24/25 at 0045, For 1 dose, Maximum dose of acetaminophen is 4000 mg from all sources in 24 hours. 0045 (Given - Provider: Gentry Pelayo RN) apixaban (Eliquis) tablet 5 mg 5 mg, Oral, 2 times daily, First dose on Sun01/23/25 at 0900, Anticoagulant 0907 (Given - Provider: Enriqueta Avery, RN)2001 (Given - Provider: Lissa Malloy, JUAN DAVID) 0844 (Given - Provider: Enriqueta Avery RN)2008 (Given - Provider: Amairani Amador, JUAN DAVID) 0931 (Given - Provider: Mary Ramirez, JUAN DAVID) atorvastatin (Lipitor) tablet 20 mg 20 mg, Oral, Daily, First dose on 01/24/25 at 1315 1331 (Given - Provider: Enriqueta Avery RN) 0844 (Given - Provider: Enriqueta Avery RN) 09 (Given - Provider: Mary Ramirez, RN) clopidogrel (Plavix) tablet 75 mg 75 mg, Oral, Daily, First dose on Sun01/21/25 at 0900 0907 (Given - Provider: Enriqueta Avery RN) 0844 (Given - Provider: Enriqueta Avery RN) 09 (Given - Provider: Mary Ramirez, RN) furosemide (Lasix) tablet 40 mg 40 mg, Oral, Daily, First dose on Sun01/22/25 at 0830 0907 (Given - Provider: Enriqueta Avery RN) 0844 (Given - Provider: Enriqueta Avery RN) 09 (Given - Provider: Mary Ramirez, JUAN DAVID) ipratropium-albuterol (Duo-Neb) 0.5-2.5 mg/3 mL nebulizer solution 3 mL 3 mL, Nebulization, 3 times daily, First dose on Sun01/25/25 at 1145 1138 (Given - Provider: Carmen Middleton, HEADING SAW OPERATOR)2036 (Given - Provider: ADONIS DialloP) 0830 (Given - Provider: Chanelle Lopez RECYCLING ATTENDANT)1309 (Given - Provider: ADONIS McdonaldP) latanoprost (Xalatan) 0.005 % ophthalmic solution 1 drop 1 drop, Both Eyes, Nightly, First dose on Sun01/09/25 at 2100 2002 (Given - Provider: Lissa Malloy, JUAN DAVID) 2009 (Given - Provider: Amairani Amador RN) Lidocaine 4 % patch 1 patch 1 patch, Topical, Administer over 12 Hours, Daily, First dose on Sun01/12/25 at 1315, Recovery & On Unit, Cut in half and place on both sides of the incision. Patch may remain in place for up to 12 hours in any 24 hour period. 09 (Medication Applied - Provider: Enriqueta Avery RN)2014 (Not Given - Provider: Lissa Malloy RN - Reason: Patient/family refused - Comment: Pt refused lidocaine patch placement today.) 929 (Medication Applied - Provider: Enriqueta Avery RN)2010 (Medication Removed - Provider: Amairani Amador, JUAN DAVID) 926 (Medication Applied - Provider: Mary Ramirez RN)1555 (Due: Medication Removed - Provider: Automatic Discharge Provider - Comment: Time automatically adjusted from order being discontinued) melatonin tablet 5 mg 5 mg, Oral, Nightly, First dose on Sun01/14/25 at 0100 2131 (Given - Provider: Lissa Malloy RN) 2009 (Given - Provider: Amairani Amador, JUAN DAVID) metoprolol tartrate (Lopressor) tablet 25 mg 25 mg, Oral, 2 times daily, First dose (after last modification) on Sun01/16/25 at 2100, Hold for SBP less than 105 and/or MAPs less than 65 and/or HR less than 60 0907 (Given - Provider: Enriqueta Avery RN)2002 (Given - Provider: Lissa Malloy RN) 08 (Given - Provider: Enriqueta Avery RN)2008 (Given - Provider: Amairani Amador RN) 09 (Given - Provider: Mary Ramirez, JUAN DAVID) mirtazapine (Remeron Elizabeth-Tab) disintegrating tablet 15 mg 15 mg, Oral, Nightly, First dose on Sun01/18/25 at 0100, Remove from blister pack and dissolve tablet on tongue. Do not chew, crush, or split. 2131 (Given - Provider: Lissa Malloy RN) 2009 (Given - Provider: Amairani Amador RN) pantoprazole (ProtoNix) EC tablet 40 mg 40 mg, Oral, Daily before breakfast, First dose on Sun01/18/25 at 0600, Do not crush, chew, or split. 0502 (Given - Provider: Gentry Pelayo RN) 0546 (Given - Provider: Lissa Malloy RN) 0603 (Given - Provider: Amairani Amador RN) polyethylene glycol (PEG) 3350 (Miralax) packet 17 g 17 g, Oral, Daily, First dose on Sun01/12/25 at 1315, Recovery & On Unit, Bowel Regimen - for prevention of constipation. 0910 (Not Given - Provider: Enriqueta Avery RN - Reason: Patient/family refused) 0930 (Not Given - Provider: Enriqueta Avery RN - Reason: Patient/family refused) 09 (Not Given - Provider: Mary Ramirez RN - Reason: Patient/family refused) potassium chloride (Klor-Con) packet 40 mEq 40 mEq, Oral, Once, On Sun01/18/25 at 1145, For 1 dose, Dissolve each packet in 4 ounces of water = 5 mEq per 1 oz fluid. senna-docusate sodium (Senokot-S) 8.6-50 MG tablet 2 tablet 2 tablet, Oral, Nightly, First dose on Sun01/12/25 at 2100, Recovery & On Unit, Bowel Regimen - for prevention of constipation. 0907 (Given - Provider: Enriqueta Avery RN) 0929 (Not Given - Provider: Enriqueta Avery RN - Reason: Patient/family refused) 09 (Not Given - Provider: Mary Ramirez RN - Reason: Patient/family refused) PRN Medication Order 01/24/2025 01/25/2025 01/26/2025 albumin human 25 % IV solution 25 g 25 g, IntraVENous, at 60 mL/hr, As needed, fluid bolus challenge PRN: PAD below goal (18) and/or Low BP (less than 90 SBP and/or less than 60 MAP) and/or Low urine output (less than 30ml/hr) per hemodynamic goals, Starting on Sun01/12/25 at 1307, For 2 doses, Phase II/On Unit, To be given in conjunction with PRN 250ml Lactate Ringer Bolus Use if hgb greater than 7.5 and PAD below goal (18) and/or Low BP (less than 90 SBP and/or less than 60 MAP) and/or Low urine output (less than 30ml/hr) per hemodynamic goals If hemodynamic goals unattained, proceed to second fluid bolus challenge If hgb less than 7.5 notify surgeon for orders. calcium carbonate (Tums) chewable tablet 500 mg 500 mg, Oral, PRN, indigestion, heartburn, Starting on Sun01/14/25 at 0050 calcium gluconate 2000 mg in 100 mL IVPB premix 2,000 mg, IntraVENous, at 50 mL/hr, Administer over 2 Hours, PRN, ionized calcium less than 4.3, Starting on Sun01/12/25 at 1307, Recovery & On Unit, Give 2000 mg for ionized calcium less than 4.3 premix bag dextrose 5 % infusion 100 mL/hr, IntraVENous, PRN, Blood sugar less than 70mg/dL, Starting on Sun01/12/25 at 1307, Recovery & On Unit, Start infusion following administration of dextrose 50% or glucagon. dextrose 50 % solution 12.5 g 12.5 g, IntraVENous, PRN, low blood sugar, Blood glucose less than 70 mg/dL and patient NOT ALERT or NPO., Starting on Sun01/12/25 at 1307, Recovery & On Unit, If patient does not respond within 5 minutes, repeat dose x1. Start D5W at 100 mL/hour until ordering provider can be reached. Repeat blood glucose in 15 minutes. If blood glucose is less than 70 mg/dL, repeat treatment and recheck blood glucose in 15 minutes x2. If using Glucostabilizer, dose as instructed per system. glucagon (human recombinant) injection 1 mg 1 mg, IntraMUSCular, PRN, low blood sugar, Blood glucose less than 70 mg/dL and patient NOT ALERT or NPO and does not have IV access., Starting on Sun01/12/25 at 1307, Recovery & On Unit, After administration, attempt intravenous access and start D5W at 100 mL/hr. Repeat blood glucose in 15 minutes x2 and notify provider. glucose oral gel 15 g 15 g, Oral, As needed, low blood sugar, Starting on Sun01/12/25 at 1307, Recovery & On Unit, If blood glucose less than 50 mg/dL and patient ALERT and NOT NPO, give 2 tubes glucose gel. If blood glucose less than 70 mg/dL and patient ALERT and NOT NPO, give 1 tube glucose gel. Repeat blood glucose in 15 minutes. If blood glucose is less than 70 mg/dL, repeat treatment and recheck blood glucose in 15 minutes x2 and notify provider. hydrOXYzine pamoate (Vistaril) capsule 25 mg 25 mg, Oral, Every 12 hours PRN, anxiety, Starting on Sun01/21/25 at 1102 2306 (Given - Provider: Lissa Malloy RN) ipratropium-albuterol (Duo-Neb) 0.5-2.5 mg/3 mL nebulizer solution 3 mL 3 mL, Nebulization, 3 times daily PRN, wheezing, shortness of breath, Starting on Sun01/12/25 at 1307, Recovery & On Unit lactated ringers bolus 250 mL 250 mL, IntraVENous, at 124 mL/hr, Administer over 121 Minutes, Continuous PRN, fluid bolus challenge: lactated ringers bolus, Starting on Sun01/12/25 at 1307, Phase II/On Unit, To be given in conjunction with PRN 25gm Albumin order Use if hgb greater than 7.5 and PAD below goal (18) and/or Low BP (less than 90 SBP and/or less than 60 MAP) and/or Low urine output (less than 30ml/hr) per hemodynamic goals If hemodynamic goals unattained, proceed to second fluid bolus challenge If hgb less than 7.5 notify surgeon for orders. magnesium hydroxide (Milk of Magnesia) 400 MG/5ML suspension 30 mL 30 mL, Oral, Daily PRN, constipation, Starting on Sun01/12/25 at 1307, Recovery & On Unit, 1st line for treatment of constipation - give scheduled if no bowel movement in past 24 hours magnesium sulfate IVPB 4,000 mg(Linked Group 1) 4,000 mg, IntraVENous, at 25 mL/hr, Administer over 4 Hours, As needed, Per Magnesium Replacement Protocol, Starting on Sun01/12/25 at 1307, Recovery & On Unit, Mg Lab Replacement Action 1.4-1.6 2 gram IVPB x 1 doses 1.0-1.3 4 gram IVPB x 1 doses Less than 1.0 CALL PHYSICIAN and 4 gram IVPB x 1 doses Infuse at 1 gram/hr. Repeat Mag level next AM. Not for use in Patients with CrCl less than 30 mL/min. magnesium sulfate IVPB premix 2,000 mg(Linked Group 1) 2,000 mg, IntraVENous, at 25 mL/hr, Administer over 2 Hours, As needed, Per Magnesium Replacement Protocol, Starting on Sun01/12/25 at 1307, Recovery & On Unit, Mg Lab Replacement Action 1.4-1.6 2 gram IVPB x 1 doses 1.0-1.3 4 gram IVPB x 1 doses Less than 1.0 CALL PHYSICIAN and 4 gram IVPB x 1 doses Infuse at 1 gram/hr. Repeat Mag level next AM. Not for use in Patients with CrCl less than 30 mL/min. methocarbamol (Robaxin) tablet 1,000 mg 1,000 mg, Oral, Every 8 hours PRN, muscle spasms, Starting on Sun01/14/25 at 1105 naloxone (Narcan) injection 0.4 mg 0.4 mg, IntraVENous, Every 5 min PRN, opioid reversal, respiratory depression, Starting on Sun01/12/25 at 1707, +++ For RR <10, pinpoint pupils, over sedation for opioid reversal - MUST notify supervisor electron tube processing provider immediately after first dose, may give IM or SQ if no IV access +++ oxyCODONE (Roxicodone) immediate release tablet 10 mg(Linked Group 2) 10 mg, Oral, Every 4 hours PRN, severe pain (7-10), Starting on Sun01/12/25 at 1325, Recovery & On Unit oxyCODONE (Roxicodone) immediate release tablet 5 mg(Linked Group 2) 5 mg, Oral, Every 4 hours PRN, moderate pain (4-6), Starting on Sun01/12/25 at 1325, Recovery & On Unit potassium chloride 40 mEq in NS 500 mL IVPB (premix)(Linked Group 3) 40 mEq, IntraVENous, at 125 mL/hr, Administer over 4 Hours, 3 times daily PRN, hypokalemia, Starting on Sun01/12/25 at 1307, Recovery & On Unit, For Peripheral Line Use. K Lab Replacement Action 3.1-3.5 20 mEq IVPB x 1 doses 2.7-3.0 40 mEq IVPB x 1 doses less than 2.7 CALL PROVIDER and administer 40 mEq IVPB x 1 dose Infuse at 10 mEq/hr Repeat Potassium lab 1 hour after administration. Protocol not for use in Patients with CrCl less than 30mL/min potassium chloride CR (Klor-Con M10) ER tablet 20 mEq 20 mEq, Oral, PRN, Hypokalemia, Starting on Sun01/13/25 at 0000, Phase II/On Unit, If patient is intubated or not tolerating PO use PRN IV replacement protocol Potassium level Dose LESS than 3.0 = Give 20 mEq x 3 doses 3.0-3.6 = Give 20 mEq x 2 doses Recheck potassium level 2 hour after replacement given, place order for lab under [place] If potassium level LESS than 3 after 1st replacement: Call surgeon. Do not crush or break. Do not crush or chew. 0906 (Given - Provider: Enriqueat Avery RN) 0657 (Given - Provider: Lissa Malloy RN)0936 (Given - Provider: Enriqueta Avery RN) 9692 (Given - Provider: Mary Ramirez RN - Comment: K 3.3) Potassium Chloride in NaCl IVPB 20 mEq(Linked Group 3) 20 mEq, IntraVENous, Administer over 2 Hours, Every 8 hours PRN, hypokalemia, Starting on Sun01/12/25 at 1307, Recovery & On Unit, For Peripheral Line Use K Lab Replacement Action 3.1-3.5 20 mEq IVPB x 1 doses 2.7-3.0 40 mEq IVPB x 1 doses less than 2.7 CALL PROVIDER and administer 40 mEq IVPB x 1 dose Infuse at 10 mEq/hr Repeat Potassium lab 1 hour after administration. Protocol not for use in Patients with CrCl less than 30mL/min potassium chloride IVPB 20 mEq(Linked Group 3) 20 mEq, IntraVENous, at 50 mL/hr, Administer over 1 Hours, 3 times daily PRN, hypokalemia, Starting on Sun01/12/25 at 1307, Recovery & On Unit, For Central Line Use Only K Lab Replacement Action 3.1-3.5 20 mEq IVPB x 2 doses 2.7-3.0 20 mEq IVPB x 2 doses (40 mEq Total) less than 2.7 CALL PROVIDER and administer 20 mEq IVPB x 2 doses (40 mEq Total) Infuse at 20 mEq/hr Repeat Potassium lab 1 hour after final administration. Protocol not for use in Patients with CrCl less than 30mL/min For central line administration only. prochlorperazine (Compazine) injection 5 mg 5 mg, IntraVENous, Every 4 hours PRN, nausea, vomiting, Starting on Sun01/21/25 at 1332, Give if unable to tolerate po. Linked Groups Order Group 1: magnesium sulfate IVPB premix 2,000 mgJump to med 2,000 mg, IntraVENous, at 25 mL/hr, Administer over 2 Hours, As needed, Per Magnesium Replacement Protocol, Starting on Sun01/12/25 at 1307, Recovery & On Unit, Mg Lab Replacement Action 1.4-1.6 2 gram IVPB x 1 doses 1.0-1.3 4 gram IVPB x 1 doses Less than 1.0 CALL PHYSICIAN and 4 gram IVPB x 1 doses Infuse at 1 gram/hr. Repeat Mag level next AM. Not for use in Patients with CrCl less than 30 mL/min. Or magnesium sulfate IVPB 4,000 mgJump to med 4,000 mg, IntraVENous, at 25 mL/hr, Administer over 4 Hours, As needed, Per Magnesium Replacement Protocol, Starting on Sun01/12/25 at 1307, Recovery & On Unit, Mg Lab Replacement Action 1.4-1.6 2 gram IVPB x 1 doses 1.0-1.3 4 gram IVPB x 1 doses Less than 1.0 CALL PHYSICIAN and 4 gram IVPB x 1 doses Infuse at 1 gram/hr. Repeat Mag level next AM. Not for use in Patients with CrCl less than 30 mL/min. Group 2: oxyCODONE (Roxicodone) immediate release tablet 5 mgJump to med 5 mg, Oral, Every 4 hours PRN, moderate pain (4-6), Starting on Sun01/12/25 at 1325, Recovery & On Unit Or oxyCODONE (Roxicodone) immediate release tablet 10 mgJump to med 10 mg, Oral, Every 4 hours PRN, severe pain (7-10), Starting on Sun01/12/25 at 1325, Recovery & On Unit Group 3: potassium chloride IVPB 20 mEqJump to med 20 mEq, IntraVENous, at 50 mL/hr, Administer over 1 Hours, 3 times daily PRN, hypokalemia, Starting on Sun01/12/25 at 1307, Recovery & On Unit, For Central Line Use Only K Lab Replacement Action 3.1-3.5 20 mEq IVPB x 2 doses 2.7-3.0 20 mEq IVPB x 2 doses (40 mEq Total) less than 2.7 CALL PROVIDER and administer 20 mEq IVPB x 2 doses (40 mEq Total) Infuse at 20 mEq/hr Repeat Potassium lab 1 hour after final administration. Protocol not for use in Patients with CrCl less than 30mL/min For central line administration only. Or Potassium Chloride in NaCl IVPB 20 mEqJump to med 20 mEq, IntraVENous, Administer over 2 Hours, Every 8 hours PRN, hypokalemia, Starting on Sun01/12/25 at 1307, Recovery & On Unit, For Peripheral Line Use K Lab Replacement Action 3.1-3.5 20 mEq IVPB x 1 doses 2.7-3.0 40 mEq IVPB x 1 doses less than 2.7 CALL PROVIDER and administer 40 mEq IVPB x 1 dose Infuse at 10 mEq/hr Repeat Potassium lab 1 hour after administration. Protocol not for use in Patients with CrCl less than 30mL/min Or potassium chloride 40 mEq in NS 500 mL IVPB (premix)Jump to med 40 mEq, IntraVENous, at 125 mL/hr, Administer over 4 Hours, 3 times daily PRN, hypokalemia, Starting on Sun01/12/25 at 1307, Recovery & On Unit, For Peripheral Line Use. K Lab Replacement Action 3.1-3.5 20 mEq IVPB x 1 doses 2.7-3.0 40 mEq IVPB x 1 doses less than 2.7 CALL PROVIDER and administer 40 mEq IVPB x 1 dose Infuse at 10 mEq/hr Repeat Potassium lab 1 hour after administration. Protocol not for use in Patients with CrCl less than 30mL/min Reason for Visit (unrecogniz ed section and content) Reason Comments Post-op FOR RECORDS PERTAINING TO PATIENTS WHO ARE OR HAVE BEEN ENROLLED IN A CHEMICAL DEPENDENCY/SUBSTANCEABUSE PROGRAM, SOME INFORMATION MAY BE OMITTED. This clinical summary was aggregated from multiple sources. Caution should be exercised in using it in the provision of clinical care. This summary normalizes information from multiple sources, and as a consequence, information in this document may materially change the coding, format and clinical context of patient data. In addition, data may be omitted in some cases. CLINICAL DECISIONS SHOULD BE BASED ON THE PRIMARY CLINICAL RECORDS. [email or web address] provides no warranty or guarantee of the accuracy or completeness of information in this document.
--- OUTSIDE RECORDS SUMMARY | 2025-02-25 22:43 | XMS RPT_ITS | CCD ---
Author Organization [facility] Care Team Providers Care Healthcare Applications Analyst Name Role Phone Agustina Hoang Unavailable Agustina Hoang Unavailable Noé RN, Layla Overton Unavailable MADRIGAL PROCESS ENGINEERING TECHNICIAN-COLLAR TURNER OPERATOR, SHANNA Primary Care Physician [phone] MAST PROCESS ENGINEERING TECHNICIAN-COLLAR TURNER OPERATOR, BECKY Primary Care Physician [phone] MAST PROCESS ENGINEERING TECHNICIAN-COLLAR TURNER OPERATOR, BECKY Primary Care Unavailabl e MAST PROCESS ENGINEERING TECHNICIAN-COLLAR TURNER OPERATOR, BECKY Attending Unavailabl e MAST PROCESS ENGINEERING TECHNICIAN-COLLAR TURNER OPERATOR, BECKY Attending Unavailabl e MAST PROCESS ENGINEERING TECHNICIAN-COLLAR TURNER OPERATOR, BECKY Primary Care Unavailabl e MAST NUTRITION SERVICES WORKER, BECKY Primary Care Provider MAST NUTRITION SERVICES WORKER, BECKY Referring Provider Layla Pagan Attending Provider [phone] Noe Patel Attending Provider Dr. Houston Morales DO Emergency Provider Dr. Washington Damico DO Admit Provider Dr. [place] Damico DO Attending Provider Dr. Richard White MD Other Provider Dr. Wahsington Damico DO Other Provider Dr. Richard White MD Attending Provider Dr. Washington Damico DO Other Provider Dr. Danial Salazar DO Attending Provider Dr. Washington Damico DO Attending Provider Dr. Danial Salazar DO Other Provider [phone] Mast, Becky Primary Care Provider [phone] NONE, PCP Referring Unavailable MAST, BECKY Primary Care Unavailable GARRY FAJARDO Consulting Unavailable LACHO COREAS Admitting Unavailable LACHO COREAS Attending Unavailable Christopher HINES, Dr. Barton Other Provider Christopher HINES, Dr. Barton Attending Provider Leni HINES, Sukhdev Attending Provider Unavailable MAST PROCESS ENGINEERING TECHNICIAN-COLLAR TURNER OPERATOR, BECKY Attending Unavailabl e MAST PROCESS ENGINEERING TECHNICIAN-COLLAR TURNER OPERATOR, BECKY Primary Care Unavailabl e Leni HINES, Sukhdev Referring Provider Unavailable Noe Patel Referring Provider Washington Damico Admitting Unavailable Richard White Attending [...] Consulting Unavailable Danial Salazar Attending Unavailable Mickippbaylee, [place] Consulting Unavailable Danial Salazar Consulting Unavailable Danial [...] Translations: [Ciprofloxacin] drug allergy 04-15-2014 Diarrhea, Other [facility] Work Phone: (7 sources) Ciprofloxacin; Translations: [ciprofloxacin HCl] Drug Allergy 01-07-2025 Other [facility] Medications Current Medications Medication Drug Class(es) Dates Sig (Normalized) Sig (Original) Acidophilus Probiotic Blend oral capsule (4 sources) Start: 04-15-2020 take 1 capsule by mouth once daily Acidophilus Probiotic Blend oral capsule Dose = 1 cap(s), Oral, qDay, 0 Refill(s) Start Date: 04/15/20 Status: Ordered Repeat number: 1 Start: 04-15-2020 take 1 capsule by [facility] once daily Acidophilus Probiotic Blend oral capsule [...] End: 08-25-2016 ELIQUIS 2.5 MG TABS APIXABAN [id number] Layla Umanzor RN PreserVision (6 sources) Vitamin [...] 1 Start: 03-29-2014 take 1 capsule by [facility] once daily Cetirizine 10 MG capsule Active [...] 02/24/2025 Discontinued (Med list cleanup) lactobacillus acidophilus [id number] unt oral capsule (3 sources) Start: 04-15-2020 [...] qDay, # 90 tab(s), 3 Refill(s), Pharmacy: [facility]/pharmacy #[id number], 154, cm, 10/19/23 13:33:00 EST, Height, [...] DAY, # 90 tab(s), 3 Refill(s), Pharmacy: [facility]/pharmacy #[id number], 157, cm, 01/17/21 8:46:00 EDT, Height, [...] one tablet by mouth daily POTASSIUM CHLORIDE [id number] Mitchel Ruth MD End: 01-09-2025 Completed/Discontinued Medications Medication Drug Class(es) Dates Sig (Normalized) Sig (Original) acetaminophen 500 mg oral tablet (10 sources) Start: 01-25-2025 End: 01-25-2025 Start: 01-24-2025 End: 01-26-2025 Start: 01-24-2025 End: 01-24-2025 Start: 01-12-2025 End: 01-17-2025 take 1000 mg by mouth every eight hours 20 ml albumin human, nursing home 250 mg/ml injection (6 sources) Human Serum [...] TABS One tablet by mouth daily ASPIRIN [id number] Mitchel Ruth MD Start: 04-15-2014 take 1 tablet by franco th once daily ASPIRIN EC 81 MG TBEC One tablet by mouth daily ASPIRIN [id number] Layla Silver PA-C Start: 04-15-2014 take 1 tablet by franco th once daily ASPIRIN 81 MG TABS One tablet by mouth daily ASPIRIN [id number] BernaDerik Car RN Start: 03-31-2014 End: 09-07-2017 [...] One tablet by mouth daily BIOTIN TABS [id number] Mitchel Ruth MD Start: 07-13-2016 take 1 tablet by franco th once daily BIOTIN FORTE TABS One tablet by mouth daily BIOTIN TABS 40052850435 Layla Silver PA-C calcium carbonate 500 mg [...] One tablet by mouth daily CRANBERRY CAPS 02609818035 Layla Silver PA-C 24 hr dilTIAZem hydrochloride [...] One tablet by mouth daily DILTIAZEM HCL 25279153514 Mitchel Ruth MD Start: 04-15-2014 take 1 tablet by franco twice daily DILTIAZEM HCL 120 MG TABS One tablet by mouth twice daily DILTIAZEM HCL [id number] Elvie Peña RN Start: 04-15-2014 take 2 tablets by mo [facility] once daily DILTIAZEM HCL 120 MG TABS Two tablets by mouth daily DILTIAZEM HCL [id number] Mitchel Ruth MD Start: 03-31-2014 End: 08-30-2017 take 1 capsule by mouth twice daily Diltiazem Hcl 120 MG capsule Discontinued 120 mg PO TWICE A DAY 60 0 March 31, 2014 12:00am August 30, 2017 8:54am docusate sodium 50 mg / sennosides, nursing home 8.6 mg oral tablet (2 sources) Start: 01-12-2025 End: 01-26-2025 Drug or medicament (substance) (2 sources) End: 01-09-2025 0.4 ml enoxaparin sodium 100 mg/ml prefilled syringe (2 sources) Low Molecular Weight Heparin Start: 01-13-2025 End: 01-22-2025 fish oil (9 sources) Start: 07-13-2016 take 1 tablet by mouth once daily FISH OIL CAPS One tablet by mouth daily OMEGA-3 FATTY ACIDS CAPS 86041004597 Layla Silver PA-C Start: 2014 End: 01-03-2016 take 1 tablet by mouth once daily FISH OIL CAPS One tablet by mouth daily OMEGA-3 FATTY ACIDS CAPS [id number] Mitchel Ruth MD Start: 2014 take 1 tablet by franco th once daily FISH OIL CAPS One tablet by mouth daily OMEGA-3 FATTY ACIDS CAPS 38157779913 Layla Silver PA-C furosemide 40 mg oral tablet (16 [...] mouth daily GREEN TEA (CAMILLIA SINENSIS) CAPS 12774216124 Mitchel Ruth MD 250 ml heparin sodium, [...] TABS One tablet by mouth daily LACTOBACILLUS 12088802638 Mitchel Ruth MD lidocaine 0.04 mg/mg medicated [...] tablet by mouth twice daily NITROFURANTOIN MACROCRYSTAL 31871795996 Mitchel Ruth MD ondansetron 8 mg oral strip (12 sources) Serotonin-3 Receptor Antagonist Start: 04-15-2014 End: 04-23-2014 ZOFRAN 8 MG TABS as needed ONDANSETRON HCL 51184672909 Abi Car RN Start: 03-31-2014 End: 09-07-2017 [...] Start: 01-10-2025 End: 01-15-2025 polyethylene glycol 3350 42066 mg powder for oral solution (2 sources) [...] End: 08-25-2016 XARELTO 10 MG TABS RIVAROXABAN 90315144837 Layla Umanzor RN rosuvastatin calcium 20 mg [...] tablet by mouth daily VITAMIN E CAPS 37489164142 Mitchel Ruth MD Start: 07-13-2016 take 1 tablet by franco th once daily VITAMIN E CAPS One tablet by mouth daily VITAMIN E CAPS 60166443864 Layla Silver PA-C (20 sources) Start: 01-16-2025 [...] artery disease; Translations: [Atherosclerotic heart disease of [place] coronary artery without angina pectoris] Onset: 5 [...] Auto (Unsp spec) [#/Vol] 1.84 10*3/uL 0.83-4.51 [facility] Absolute neutrophil countOrd ered By: Noe Nguyễn on 02-11-2025 Neutrophils (Bld) [#/Vol] 3.4 10*3/uL 2.0-7.7 [facility] Anion gap in Serum or Plasma Ordered By: Noe Nguyễn on 02-11-2025 Anion gap [Moles/Vol] 11 mmol/L 5- [facility] Automated lymphocyte count a s percentage of total leukocytesOrdered By: Noe Nguyễn on 02-11-2025 Lymphocytes/100 WBC Auto (Unsp spec) 31.4 % - [facility] BUN/creatinine ratioOrdered By: Noe Nguyễn on 02-11-2025 Urea nitrogen/Creatinine [Mass ratio] 20.2 mg/mg High 10- [facility] Basophil percentageOrdered B y: Noe Nguyễn on 02-11-2025 Basophils/100 WBC (Bld) 0.5 % 0-1 [facility] Bilirubin, totalOrdered By: Noe Nguyễn on 02-11-2025 Bilirubin [Mass/Vol] 0.26 mg/dL 0.00-1.30 [facility] CBC W/Diff, Automatedon Absolute Lymph 1.84 X10 3/uL Normal 0.83-4.51 [facility] Comment on above: Performed By: #### L 500.4050, L503.7505, L500.4100, L100.0100 ####[facility] [address] [place], [address] Absolute Neut 3.4 X10 3/uL Normal 2.0-7.7 [facility] Comment on above: Performed By: #### L 500.4050, L503.7505, L500.4100, L100.0100 ####[facility] [address] [place], [address] Basophils/100 WBC (Bld) 0.5 % Normal 0-1 [facility] Comment on above: Performed By: #### L 500.4050, L503.7505, L500.4100, L100.0100 ####[facility] [address] [place], [address] Eosinophils/100 WBC (Bld) 2.9 % Normal 0-5 [facility] Comment on above: Performed By: #### L 500.4050, L503.7505, L500.4100, L100.0100 ####[facility] [address] [place], [address] Erythrocyte distribution width (RBC) [Ratio] 15.2 % High 11.6-14.6 [facility] Comment on above: Performed By: #### L 500.4050, L503.7505, L500.4100, L100.0100 ####[facility] [address] [place], [address] Hematocrit (Bld) [Volume fraction] 30.4 % Low 37-47 [facility] Comment on above: Performed By: #### L 500.4050, L503.7505, L500.4100, L100.0100 ####[facility] [address] [place], [address] Hemoglobin (Bld) [Mass/Vol] 9.4 g/dL Low 12.0-15.0 [facility] Comment on above: Performed By: #### L 500.4050, L503.7505, L500.4100, L100.0100 ####[facility] [address] [place], [address] IG% 0.300 Normal 0.0-0.9 [facility] Comment on above: Result Comment: IG% - Immature Granulocytes (promyelocytes, myelocytes and metamyelocytes) > 1% indicates that a LEFT SHIFT is Present. Performed By: #### L 500.4050, L503.7505, L500.4100, L100.0100 ####[facility] [address] [place], [address] Lymphocytes/100 WBC (Bld) 31.4 % Normal 19-41 [facility] Comment on above: Performed By: #### L 500.4050, L503.7505, L500.4100, L100.0100 ####[facility] [address] [place], [address] MCH (RBC) [Entitic mass] 28.8 pg Normal 27.0-32.0 [facility] Comment on above: Performed By: #### L 500.4050, L503.7505, L500.4100, L100.0100 ####[facility] [address] [place], [address] MCHC (RBC) [Mass/Vol] 30.9 g/dL Low 32-36 [facility] Comment on above: Performed By: #### L 500.4050, L503.7505, L500.4100, L100.0100 ####[facility] [address] [place], [address] MCV (RBC) [Entitic vol] 93.3 fL Normal 81-99 [facility] Comment on above: Performed By: #### L 500.4050, L503.7505, L500.4100, L100.0100 ####[facility] [address] [place], [address] Monocytes/100 WBC (Bld) 7.7 % Normal 0-10 [facility] Comment on above: Performed By: #### L 500.4050, L503.7505, L500.4100, L100.0100 ####[facility] [address] [place], [address] Neutrophils/100 WBC (Bld) 57.2 % Normal 47-70 [facility] Comment on above: Performed By: #### L 500.4050, L503.7505, L500.4100, L100.0100 ####[facility] [address] [place], [address] Nucleated RBC (Bld) [#/Vol] 0 10*3/uL Normal 0-5 [facility] Comment on above: Performed By: #### L 500.4050, L503.7505, L500.4100, L100.0100 ####[facility] [address] [place], [address] Platelet mean volume (Bld) [Entitic vol] 10.5 fL Normal 6.2-12.0 [facility] Comment on above: Performed By: #### L 500.4050, L503.7505, L500.4100, L100.0100 ####[facility] [address] [place], [address] Platelets (Bld) [#/Vol] 227 10*3/uL Normal 150-450 [facility] Comment on above: Performed By: #### L 500.4050, L503.7505, L500.4100, L100.0100 ####[facility] [address] [place], [address] RBC (Bld) [#/Vol] 3.26 10*6/uL Low 4.2-5.4 [facility] Comment on above: Performed By: #### L 500.4050, L503.7505, L500.4100, L100.0100 ####[facility] [address] [place], [address] RDW SD 51.9 fl High 35.1-43.9 [facility] Comment on above: Performed By: #### L 500.4050, L503.7505, L500.4100, L100.0100 ####[facility] [address] [place], [address] WBC (Bld) [#/Vol] 5.9 10*3/uL Normal 4.4-11.0 [facility] Comment on above: Performed By: #### L 500.4050, L503.7505, L500.4100, L100.0100 ####[facility] [address] [place], [address] Calculated very low density lipoprotein (VLDL) cholesterol measurementOrdered By: Noe Nguyễn on 02-11-2025 Calculated very low density lipoprotein (VLDL) cholesterol measurement 26 mg/dL 5-40 [facility] Carbon dioxide, total [Moles /volume] in Central venous bloodOrdered By: Noe Nguyễn on 02-11-2025 CO2 [Moles/Vol] 20.2 mmol/L Low 21.0-32.0 [facility] Cardiology Visit Reporton Cardiology Visit Report [facility] [address] [place] [address] OFFICE VISIT Date of Service: 02/11/25 MR#: [id number] Acct: [id number] Name: RITIKA SANTANA Rep #: [id number] : 1945 Provider: SHAWNEE Bright Age/Sex: 79/F Location: [facility] Status: Signed Agree with assessment and [...] multivessel disease and she was transferred to [facility] for surgical consultation. Patient underwent coronary artery bypass graft x 4 with left atrial appendage clip at [facility] 01/12/2025. Blanco to the LAD, SVG to the PDA, SVG to OM1, SVG to the diagonal. Echocardiogram 01/12/2025 demonstrated normal left ventricular systolic function, and normal right ventricular systolic function with mild to moderate mitral valve regurgitation. She was discharged on 01/26/2025 to a [facility] facility for rehab. Cardiac medications at discharge [...] 98 Intake Visit Reasons: S/P [facility] 01/12 Diploma Dental Assistant Required: No Is patient in pain?: No [...] basal dionte (more content not included)... Normal [facility] Chest PA and Lateralon 02-11 Chest PA and Lateral [facility] Services [address] [place], [place] [id number] Chest PA and Lateral MR#: [id number] Acct: [id number] Name: ESTHERRITIKA K Rep #: [id number] : 1945 F 79 From: Nba Suarez PCP: ERIN GRANT Status: REG CLI Study: Chest PA and Lateral Date of Exam: 02/11/25 Exam# [id number] Ordering Dr: Demiter,Noe PA PROCEDURE: CHEST PA AND LATERAL 02/11/2025 REASON FOR EXAM: ABNORMAL LUNG SOUNDS, HX PLEURAL EFFUSION TECHNIQUE: CHEST PA AND LATERAL COMPARISON: PA and lateral chest of 01/07/2025. RAD/Chest PA and Lateral IMPRESSION: The lateral view is limited by significant patient motion. Generalized osteopenia with significant kyphosis again noted. No interval osseous change is appreciated. Interval sternotomy. Small right and zpida-zt-mcfcsybm left pleural effusions are now seen. No pulmonary edema is identified. No focal infiltrate is seen. No pneumothorax is evident. Borderline cardiomegaly, not clearly changed since the prior study. Reading Location: [place] [address] CC: ERIN GRANT; SHAWNEE Bright Crop Nutrition Scientist: Signed Normal [facility] Chloride assayOrdered By: Christal Nguyễn on 02-11-2025 Chloride [Moles/Vol] 111 mmol/L High 98-108 [facility] Comprehensive Metabolic Prof ilon 02-11-2025 Albumin [Mass/Vol] 3.8 g/dL Normal 3.4-4.8 [facility] Comment on above: Performed By: #### L 500.4050, L503.7505, L500.4100, L100.0100 ####[facility] [address] [place], [address] Albumin/Globulin [Mass ratio] 1.3 {ratio} Normal 0.9-2.4 [facility] Comment on above: Performed By: #### L 500.4050, L503.7505, L500.4100, L100.0100 ####[facility] [address] [place], [address] ALK PHOS 104 U/L Normal 35-104 [facility] Comment on above: Performed By: #### L 500.4050, L503.7505, L500.4100, L100.0100 ####[facility] [address] [place], [address] ALT [Catalytic activity/Vol] 24 U/L Normal <=34 [facility] Comment on above: Performed By: #### L 500.4050, L503.7505, L500.4100, L100.0100 ####[facility] [address] [place], [address] AST [Catalytic activity/Vol] 28 U/L Normal <=31 [facility] Comment on above: Performed By: #### L 500.4050, L503.7505, L500.4100, L100.0100 ####[facility] [address] [place], [address] Bilirubin [Mass/Vol] 0.26 mg/dL Normal 0.00-1.30 [facility] Comment on above: Performed By: #### L 500.4050, L503.7505, L500.4100, L100.0100 ####[facility] [address] [place], [address] BUN/CRE 20.2 RATIO High 10-20 [facility] Comment on above: Performed By: #### L 500.4050, L503.7505, L500.4100, L100.0100 ####[facility] [address] [place], [address] Calcium [Mass/Vol] 9.2 mg/dL Normal 7.6-11.0 [facility] Comment on above: Performed By: #### L 500.4050, L503.7505, L500.4100, L100.0100 ####[facility] [address] [place], [address] Chloride [Moles/Vol] 111 mmol/L High 98-108 [facility] Comment on above: Performed By: #### L 500.4050, L503.7505, L500.4100, L100.0100 ####[facility] [address] [place], [address] CO2 [Moles/Vol] 20.2 mmol/L Low 21.0-32.0 [facility] Comment on above: Performed By: #### L 500.4050, L503.7505, L500.4100, L100.0100 ####[facility] [address] [place], [address] Creatinine [Mass/Vol] 0.78 mg/dL Normal 0.70-1.20 [facility] Comment on above: Performed By: #### L 500.4050, L503.7505, L500.4100, L100.0100 ####[facility] [address] [place], [address] GAP 11 Normal 5-15 [facility] Comment on above: Performed By: #### L 500.4050, L503.7505, L500.4100, L100.0100 ####[facility] [address] [place], [address] GFR/1.73 sq M.predicted among non-blacks MDRD (S/P/Bld) [Vol rate/Area] 77 mL/min/{1.73_m2} Normal >60 [facility] Comment on above: Result Comment: mL/m in/1.73m2 CKD-EPI Creatinine Equation (2020) Performed By: #### L 500.4050, L503.7505, L500.4100, L100.0100 ####[facility] [address] [place], [address] Globulin (S) [Mass/Vol] 3.0 g/dL Normal 2.2-4.2 [facility] Comment on above: Performed By: #### L 500.4050, L503.7505, L500.4100, L100.0100 ####[facility] [address] [place], [address] Glucose [Mass/Vol] 106 mg/dL High 70-99 [facility] Comment on above: Performed By: #### L 500.4050, L503.7505, L500.4100, L100.0100 ####[facility] [address] [place], [address] Potassium [Moles/Vol] 4.4 mmol/L Normal 3.3-5.1 [facility] Comment on above: Performed By: #### L 500.4050, L503.7505, L500.4100, L100.0100 ####[facility] [address] [place], [address] Sodium [Moles/Vol] 143 mmol/L Normal 133-145 [facility] Comment on above: Performed By: #### L 500.4050, L503.7505, L500.4100, L100.0100 ####[facility] [address] [place], [address] T PROT 6.8 g/dL Normal 5.9-8.4 [facility] Comment on above: Performed By: #### L 500.4050, L503.7505, L500.4100, L100.0100 ####[facility] [address] [place], [address] Urea nitrogen [Mass/Vol] 16 mg/dL Normal 4-19 [facility] Comment on above: Performed By: #### L 500.4050, L503.7505, L500.4100, L100.0100 ####[facility] [address] [place], [address] Eosinophil percentageOrdered By: Noe Nguyễn on 02-11-2025 Eosinophils/100 WBC (Bld) 2.9 % 0-5 [facility] Erythrocyte distribution wid th ratioOrdered By: Noe Nguyễn on 02-11-2025 Erythrocyte distribution width (RBC) [Ratio] 15.2 % High 11.6-14.6 [facility] Erythrocyte distribution wid th standard deviationOrdered By: Noe Nguyễn on 02-11-2025 Erythrocyte distribution width (RBC) [Ratio] 51.9 fl High 35.1-43.9 [facility] Glomerular filtration rate ( GFR) estimation/1.73 sq m using serum, plasma, or whole bOrdered By: Noe Nguyễn on 02-11-2025 GFR/1.73 sq M.predicted among non-blacks MDRD (S/P/Bld) [Vol rate/Area] 77 mL/min/{1.73_m2} >60 [facility] Comment on above: mL/min/1.73m2 CKD-EP I Creatinine Equation (2020) Hematocrit Auto (Bld) [Volum e fraction]Ordered By: Noe Nguyễn on 02-11-2025 Hematocrit (Bld) [Volume fraction] 30.4 % Low 37-47 [facility] Hemoglobin measurementOrdere d By: Noe Nguyễn on 02-11-2025 Hemoglobin (Bld) [Mass/Vol] 9.4 g/dL Low 12.0-15.0 [facility] Immature granulocytes/100 WB C Auto (Bld)Ordered By: Noe Nguyễn on 02-11-2025 Immature granulocytes/100 WBC (Bld) 0.300 % 0.0-0.9 [facility] Comment on above: IG% - Immature Granu locytes (promyelocytes, myelocytes and metamyelocytes) > 1% indicates that a LEFT SHIFT is Present. L503.7505on 02-11-2025 Natriuretic peptide B (Bld) [Mass/Vol] 4717 pg/mL High <=1800 [facility] Comment on above: Result Comment: Hear t Failure Unlikely: < 300 pg/mL Heart Failure Likely < 50 Years: > 450 pg/mL 50-75 Years: > 900 pg/mL >75 Years: > 1800 pg/mL Performed By: #### L 500.4050, L503.7505, L500.4100, L100.0100 ####[facility] [address], [address] LDL calc ser/plasOrdered By: Noe Nguyễn on 02-11-2025 Cholesterol in LDL [Mass/Vol] 53 mg/dL [facility] Comment on above: Mqxksbdfug=088-330 m g/dL & Higher Fmba=593 mg/dL or greater Laboratory - Chemistry and C hemistry - challengeOrdered By: Noe Nguyễn on 02-11-2025 AST [Catalytic activity/Vol] 28 U/L <32 [facility] Lipid Profileon 02-11-2025 CHOL:HDL 3.21 Normal [facility] Comment on above: Performed By: #### L 500.4050, L503.7505, L500.4100, L100.0100 ####[facility] [address] [place], [address] Cholesterol [Mass/Vol] 114 mg/dL Normal <=200 [facility] Comment on above: Result Comment: Chol esterol level, Desirable <200 mg/dL Borderline high cholesterol 200-239 mg/dL High cholesterol >=240 mg/dL Recommendations of the NCEP Adult Treatment Panel for the following risk-cutoff thresholds for the [place] population. Performed By: #### L 500.4050, L503.7505, L500.4100, L100.0100 ####[facility] [address] [place] [place], [address] Cholesterol in HDL [Mass/Vol] 36 mg/dL Low [facility] Comment on above: Result Comment: Miguelina onal Cholesterol Education Program (NCEP) guidelines: <40 mg/dL: Low HDL-cholesterol (major risk factor for CHD) >= 60 mg/dL: High HDL-cholesterol (negative risk factor for CHD) HDL-cholesterol is affected by a number of factors, e.g. smoking, exercise, hormones, sex and age. Performed By: #### L 500.4050, L503.7505, L500.4100, L100.0100 ####[facility] [address] [place], [address] Cholesterol in LDL [Mass/Vol] 53 mg/dL Normal [facility] Comment on above: Result Comment: Bord xpedmj=208-401 mg/dL Higher Jkow=920 mg/dL or greater Performed By: #### L 500.4050, L503.7505, L500.4100, L100.0100 ####[facility] [address] [place], [address] Cholesterol in VLDL [Mass/Vol] 26 mg/dL Normal 5-40 [facility] Comment on above: Performed By: #### L 500.4050, L503.7505, L500.4100, L100.0100 ####[facility] [address] [place], [address] Triglyceride [Mass/Vol] 129 mg/dL Normal [facility] Comment on above: Result Comment: The drugs N-Acetylcysteine and Metamizole may falsely depress this assay. Normal range: <150 mg/dL Borderline High: 150-199 mg/dL High: 200-499 mg/dL Very High: >500 mg/dL Performed By: #### L 500.4050, L503.7505, L500.4100, L100.0100 ####[facility] [address] [place], [address] MCV (mean corpuscular volume ) determinationOrdered By: Noe Nguyễn on 02-11-2025 MCV (RBC) [Entitic vol] 93.3 fL 81-99 [facility] Mean corpuscular hemoglobin (MCH) determinationOrdered By: Noe Nguyễn on 02-11-2025 MCH (RBC) [Entitic mass] 28.8 pg 27.0-32.0 [facility] Mean corpuscular hemoglobin concentration (MCHC) determinationOrdered By: Noe Demspike on 02-11-2025 MCHC (RBC) [Mass/Vol] 30.9 g/dL Low 32-36 [facility] Mean platelet volume determi nationOrdered By: Noe Nguyễn on 02-11-2025 Platelet mean volume (Bld) [Entitic vol] 10.5 fL 6.2-12.0 [facility] Monocyte percentageOrdered B y: Noe Nguyễn on 02-11-2025 Monocytes/100 WBC (Bld) 7.7 % 0-10 [facility] Natriuretic peptide.B prohor ami N-Terminal [Mass/volume] in Serum or PlasmaOrdered By: Noe Nguyễn on 02-11-2025 Natriuretic peptide.B prohormone N-Terminal [Mass/Vol] 4717 pg/mL High <1800 [facility] Comment on above: Heart Failure Unlike ly: < 300 pg/mLHeart Failure Likely< 50 Years: > 450 pg/mL50-75 Years: > 900 pg/mL>75 Years: > 1800 pg/mL Neutrophil percentageOrdered By: Noe Nguyễn on 02-11-2025 Neutrophils/100 WBC (Bld) 57.2 % 47-70 [facility] Nucleated red blood cell per centageOrdered By: Noe Nguyễn on 02-11-2025 Nucleated RBC/100 WBC (Bld) [Ratio] 0 % 0-5 [facility] Platelet countOrdered By: Christal Nguyễn on 02-11-2025 Platelets (Bld) [#/Vol] 227 10*3/uL 150-450 [facility] Potassium measurement (mass/ volume)Ordered By: Noe Nguyễn on 02-11-2025 Potassium (Unsp spec) [Mass/Vol] 4.4 mmol/L 3.3-5.1 [facility] RBC Auto (Bld) [#/Vol]Ordere d By: Noe Nguyễn on 02-11-2025 RBC (Bld) [#/Vol] 3.26 10*6/uL Low 4.2-5.4 [facility] Screening total cholesterol/ high density lipoprotein (HDL) cholesterol ratioOrdered By: Noe Nguyễn on 02-11-2025 Cholesterol.total/Choles terol in HDL [Mass ratio] 3.21 {ratio} [facility] Serum creatinine measurement (mass/volume)Ordered By: Noe Nguyễn on 02-11-2025 Creatinine [Mass/Vol] 0.78 mg/dL 0.70-1.20 [facility] Serum globulin measurementOr dered By: Noe Nguyễn on 02-11-2025 Globulin (S) [Mass/Vol] 3.0 g/dL 2.2-4.2 [facility] Serum glucose measurement (m ass/volume)Ordered By: Noe Gopi on 02-11-2025 Glucose [Mass/Vol] 106 mg/dL High 70-99 [facility] Serum or plasma alanine pollock otransferase (ALT) measurementOrdered By: [facility] Gopi on 02-11-2025 ALT [Catalytic activity/Vol] 24 U/L <35 [facility] Serum or plasma albumin valerio urement (mass/volume)Ordered By: [facility] Gopi on 02-11-2025 Albumin [Mass/Vol] 3.8 g/dL 3.4-4.8 [facility] Serum or plasma albumin/glob ulin mass ratioOrdered By: [facility]-2025 Albumin/Globulin [Mass ratio] 1.3 {ratio} 0.9-2.4 [facility] Serum or plasma alkaline edilia sphatase measurementOrdered By: [facility] on 02-11-2025 ALP [Catalytic activity/Vol] 104 U/L 35-104 [facility] Serum or plasma calcium valerio urement (mass/volume)Ordered By: [facility] on 02-11-2025 Calcium [Mass/Vol] 9.2 mg/dL 7.6-11.0 [facility] Serum or plasma cholesterol in HDL measurement (mass/volume)Ordered By: Noe Gopi on 02-11-2025 Cholesterol in HDL [Mass/Vol] 36 mg/dL Low >40 [facility] Comment on above: National Cholesterol Education Program (NCEP) guidelines:<40 mg/dL: Low HDL-cholesterol (major risk factor for CHD)>= 60 mg/dL: High HDL-cholesterol (negative risk factor for CHD)HDL-cholesterol is affected by a number of factors, e.g. smoking, exercise, hormones, sex and age. Serum or plasma cholesterol measurement (mass/volume)Ordered By: Noe Gopi on 02-11-2025 Cholesterol [Mass/Vol] 114 mg/dL <201 [facility] Comment on above: Cholesterol level, D esirable <200 mg/dLBorderline high cholesterol 200-239 mg/dLHigh cholesterol >=240 mg/dLRecommendations of the NCEP Adult Treatment Panel for the following risk-cutoff thresholds for the [place] population. Serum or plasma urea nitroge n measurement (mass/volume)Ordered By: Noe Nguyễn on 02-11-2025 Urea nitrogen [Mass/Vol] 16 mg/dL 4-19 [facility] Sodium levelOrdered By: Linda Nguyễn on 02-11-2025 Sodium [Moles/Vol] 143 mmol/L 133-145 [facility] Total proteinOrdered By: Odin Nguyễn on 02-11-2025 Protein [Mass/Vol] 6.8 g/dL 5.9-8.4 [facility] Triglycerides measurementOrd ered By: Noe Nguyễn on 02-11-2025 Triglyceride [Mass/Vol] 129 mg/dL <199 [facility] Comment on above: The drugs N-Acetylcy steine and Metamizole may falsely depress this assay. Normal range: <150 mg/dLBorderline High: 150-199 mg/dLHigh: 200-499 mg/dLVery High: >500 mg/dL White blood cell (WBC) count Ordered By: Noe Nguyễn on 02-11-2025 WBC (Bld) [#/Vol] 5.9 10*3/uL 4.4-11.0 [facility] .Auto Diffon 02-06-2025 Basophil, Absolute 0.0 10 3/mcL Normal 0.0-0.3 [facility] Comment on above: Performed By: #### C BC, ADIFF, BMP, GFR, ANEU #### [address] [address] Basophils/100 WBC (Bld) 0.8 % Normal 0.0-2.5 [facility] Comment on above: Performed By: #### C BC, ADIFF, BMP, GFR, ANEU #### [address] [address] Eosinophil, Absolute 0.3 10 3/mcL Normal 0.0-0.7 [facility] Comment on above: Performed By: #### C BC, ADIFF, BMP, GFR, ANEU #### [address] [address] Eosinophils/100 WBC (Bld) 4.8 % Normal 0.0-6.0 [facility] Comment on above: Performed By: #### C BC, ADIFF, BMP, GFR, ANEU #### [address] [address] Lymphocyte, Absolute 1.8 10 3/mcL Normal 0.9-4.3 [facility] Comment on above: Performed By: #### C BC, ADIFF, BMP, GFR, ANEU #### [address] [address] Lymphocytes/100 WBC (Bld) 30.8 % Normal 20.0-40.0 [facility] Comment on above: Performed By: #### C BC, ADIFF, BMP, GFR, ANEU #### [address] [address] Monocyte, Absolute 0.5 10 3/mcL Normal 0.1-1.4 [facility] Comment on above: Performed By: #### C BC, ADIFF, BMP, GFR, ANEU #### [address] [address] Monocytes/100 WBC (Bld) 8.0 % Normal 2.0-13.0 [facility] Comment on above: Performed By: #### C BC, ADIFF, BMP, GFR, ANEU #### [address] [address] Neutrophils/100 WBC (Bld) 55.6 % Normal 50.0-75.0 [facility] Comment on above: Performed By: #### C BC, ADIFF, BMP, GFR, ANEU #### [address] [address] .GFRon 02-06-2025 Estimated Glomerular Filtration Rate 74 ml/min/1.73sqm Normal [facility] Comment on above: Result Comment: Stages [...] C BC, ADIFF, BMP, GFR, ANEU #### [address] [address] .NEUABSon 02-06-2025 Neutrophil, Absolute 3.3 10 3/mcL Normal 2.3-8.1 [facility] Comment on above: Performed By: #### C BC, ADIFF, BMP, GFR, ANEU #### [address] [address] BMPon 02-06-2025 BUN/Creatinine Ratio 23 ratio Normal 7-27 [facility] Comment on above: Performed By: #### C BC, ADIFF, BMP, GFR, ANEU #### [address] [address] Calcium [Mass/Vol] 9.2 mg/dL Normal 8.4-10.2 [facility] Comment on above: Performed By: #### C BC, ADIFF, BMP, GFR, ANEU #### [address] [address] Chloride [Moles/Vol] 106 mmol/L Normal 98-107 [facility] Comment on above: Performed By: #### C BC, ADIFF, BMP, GFR, ANEU #### [address] [address] CO2 [Moles/Vol] 25 mmol/L Normal 23-31 [facility] Comment on above: Performed By: #### C BC, ADIFF, BMP, GFR, ANEU #### [address] [address] Creatinine [Mass/Vol] 0.81 mg/dL Normal 0.51-0.95 [facility] Comment on above: Performed By: #### C BC, ADIFF, BMP, GFR, ANEU #### [place] [id number] Electrolyte Balance 11.0 mEq/L Normal 4.0-15.0 [facility] Comment on above: Performed By: #### C BC, ADIFF, BMP, GFR, ANEU #### [place] [address] Glucose [Mass/Vol] 107 mg/dL Normal 83-110 [facility] Comment on above: Performed By: #### C BC, ADIFF, BMP, GFR, ANEU #### [place] [address] Potassium [Moles/Vol] 4.4 mmol/L Normal 3.5-5.1 [facility] Comment on above: Performed By: #### C BC, ADIFF, BMP, GFR, ANEU #### [place] [address] Sodium [Moles/Vol] 142 mmol/L Normal 136-145 [facility] Comment on above: Performed By: #### C BC, ADIFF, BMP, GFR, ANEU #### [place] [address] Urea nitrogen [Mass/Vol] 19 mg/dL High 7-18 [facility] Comment on above: Performed By: #### C BC, ADIFF, BMP, GFR, ANEU #### [address] [address] CBCon 02-06-2025 Erythrocyte distribution width (RBC) [Ratio] 15.9 % High 11.5-15.5 [facility] Comment on above: Performed By: #### C BC, ADIFF, BMP, GFR, ANEU #### [place] [id number] Hematocrit (Bld) [Volume fraction] 32.5 % Low 34.0-46.0 [facility] Comment on above: Performed By: #### C BC, ADIFF, BMP, GFR, ANEU #### [address] [address] Hgb 10.6 G/dL Low 12.0-16.0 [facility] Comment on above: Performed By: #### C BC, ADIFF, BMP, GFR, ANEU #### [address] [address] MCH (RBC) [Entitic mass] 29.8 pg Normal 27.0-33.0 [facility] Comment on above: Performed By: #### C BC, ADIFF, BMP, GFR, ANEU #### [address] [address] MCHC 32.6 G/dL Normal 32.0-36.0 [facility] Comment on above: Performed By: #### C BC, ADIFF, BMP, GFR, ANEU #### [address] [address] MCV (RBC) [Entitic vol] 91.4 fL Normal 80.0-99.0 [facility] Comment on above: Performed By: #### C BC, ADIFF, BMP, GFR, ANEU #### [address] [address] Platelet 261 10 3/mcL Normal 150-450 [facility] Comment on above: Performed By: #### C BC, ADIFF, BMP, GFR, ANEU #### [address] [address] Platelet mean volume (Bld) [Entitic vol] 8.8 fL Normal 6.6-10.5 [facility] Comment on above: Performed By: #### C BC, ADIFF, BMP, GFR, ANEU #### [address] [address] RBC 3.56 10 6/mcL Low 4.10-5.30 [facility] Comment on above: Performed By: #### C BC, ADIFF, BMP, GFR, ANEU #### [address] [address] WBC 5.9 10 3/mcL Normal 4.5-10.8 [facility] Comment on above: Performed By: #### C BC, ADIFF, BMP, GFR, ANEU #### [facility] [address] [place], [place] [address] LABORATORYOrdered By: SYSTEM SYSTEM on 02-06-2025 Basophils [...] 02-04-2025 Anion gap [Moles/Vol] 11 mmol/L - [facility] BUN/creatinine ratioOrdered By: Sukhdev Farrar on 02-04-2025 Urea nitrogen/Creatinine [Mass ratio] 15.9 mg/mg - [facility] Basic Metabolic Profile (BMP )on 02-04-2025 BUN/CRE 15.9 RATIO Normal 06-01 [facility] Comment on above: Order Comment: 315.1 Performed By: #### L 499.0043 #### [facility] [address] [place], [address] Calcium [Mass/Vol] 9.2 mg/dL Normal 7.6-11.0 [facility] Comment on above: Order Comment: 315.1 Performed By: #### L 499.0043 #### [facility] [address] [place], [address] Chloride [Moles/Vol] 109 mmol/L High 98-108 [facility] Comment on above: Order Comment: 315.1 Performed By: #### L 499.0043 #### [facility] [address] [place], [address] CO2 [Moles/Vol] 22.3 mmol/L Normal 21.0-32.0 [facility] Comment on above: Order Comment: 315.1 Performed By: #### L 499.0043 #### [facility] [address] [place], [address] Creatinine [Mass/Vol] 0.82 mg/dL Normal 0.70-1.20 [facility] Comment on above: Order Comment: 315.1 Performed By: #### L 499.0043 #### [facility] [address] [place], [address] GAP 11 Normal - [facility] Comment on above: Order Comment: 315.1 Performed By: #### L 499.0043 #### [facility] [address] [place], [address] GFR/1.73 sq M.predicted among non-blacks MDRD (S/P/Bld) [Vol rate/Area] 73 mL/min/{1.73_m2} Normal >60 [facility] Comment on above: Order Comment: 315.1 Result Comment: mL/m in/1.73m2 CKD-EPI Creatinine Equation (2020) Performed By: #### L 499.0043 #### [facility] [address] [place], [address] Glucose [Mass/Vol] 96 mg/dL Normal 70-99 [facility] Comment on above: Order Comment: 315.1 Performed By: #### L [id number] #### [facility] [address] [place], [address] Potassium [Moles/Vol] 3.6 mmol/L Normal 3.3-5.1 [facility] Comment on above: Order Comment: 315.1 Performed By: #### L [id number] #### [facility] [address] [place], [address] Sodium [Moles/Vol] 143 mmol/L Normal 133-145 [facility] Comment on above: Order Comment: 315.1 Performed By: #### L 499.0043 #### [facility] [address] [place], [address] Urea nitrogen [Mass/Vol] 13 mg/dL Normal 4-19 [facility] Comment on above: Order Comment: 315.1 Performed By: #### L 499.0043 #### [facility] [address] [place], [address] CBC-Complete Blood Cnt No Di ffon 02-04-2025 Erythrocyte distribution width (RBC) [Ratio] 15.3 % High 11.6-14.6 [facility] Comment on above: Order Comment: 315.1 Performed By: #### L 499.0043 #### [facility] [address] [place], [address] Hematocrit (Bld) [Volume fraction] 29.5 % Low 37-47 [facility] Comment on above: Order Comment: 315.1 Performed By: #### L 499.0043 #### [facility] [address] [place], [address] Hemoglobin (Bld) [Mass/Vol] 9.1 g/dL Low 12.0-15.0 [facility] Comment on above: Order Comment: 315.1 Performed By: #### L 499.0043 #### [facility] [address] [place], [address] MCH (RBC) [Entitic mass] 28.8 pg Normal 27.0-32.0 [facility] Comment on above: Order Comment: 315.1 Performed By: #### L 499.0043 #### [facility] [address] [place], [address] MCHC (RBC) [Mass/Vol] 30.8 g/dL Low 32-36 [facility] Comment on above: Order Comment: 315.1 Performed By: #### L 499.0043 #### [facility] [address] [place], [address] MCV (RBC) [Entitic vol] 93.4 fL Normal 81-99 [facility] Comment on above: Order Comment: 315.1 Performed By: #### L 499.0043 #### [facility] [address] [place], [address] Platelet mean volume (Bld) [Entitic vol] 10.4 fL Normal 6.2-12.0 [facility] Comment on above: Order Comment: 315.1 Performed By: #### L 499.0043 #### [facility] [address] [place], [address] Platelets (Bld) [#/Vol] 241 10*3/uL Normal 150-450 [facility] Comment on above: Order Comment: 315.1 Performed By: #### L 499.0043 #### [facility] [address] [place], [address] RBC (Bld) [#/Vol] 3.16 10*6/uL Low 4.2-5.4 [facility] Comment on above: Order Comment: 315.1 Performed By: #### L 499.0043 #### [facility] [address] [place], [address] RDW SD 52.6 fl High 35.1-43.9 [facility] Comment on above: Order Comment: 315.1 Performed By: #### L 499.0043 #### [facility] [address] [place], [address] WBC (Bld) [#/Vol] 4.2 10*3/uL Low 4.4-11.0 [facility] Comment on above: Order Comment: 315.1 Performed By: #### L 499.0043 #### [facility] [address] [place], [address] Carbon dioxide, total [Moles /volume] in Central venous bloodOrdered By: Sukhdev Farrar on 02-04-2025 CO2 [Moles/Vol] 22.3 mmol/L 21.0-32.0 [facility] Chloride assayOrdered By: Leonard on 02-04-2025 Chloride [Moles/Vol] 109 mmol/L High 98-108 [facility] Erythrocyte distribution wid th ratioOrdered By: Sukhdev Farrar on 02-04-2025 Erythrocyte distribution width (RBC) [Ratio] 15.3 % High 11.6-14.6 [facility] Erythrocyte distribution wid th standard deviationOrdered By: Sukhdev Farrar on 02-04-2025 Erythrocyte distribution width (RBC) [Ratio] 52.6 fl High 35.1-43.9 [facility] Glomerular filtration rate ( GFR) estimation/1.73 sq m using serum, plasma, or whole bOrdered By: Sukhdev Farrar on 02-04-2025 GFR/1.73 sq M.predicted among non-blacks MDRD (S/P/Bld) [Vol rate/Area] 73 mL/min/{1.73_m2} >60 [facility] Comment on above: mL/min/1.73m2 CKD-EP I Creatinine Equation (2020) Hematocrit Auto (Bld) [Volum e fraction]Ordered By: Sukhdev Farrar on 02-04-2025 Hematocrit (Bld) [Volume fraction] 29.5 % Low 37-47 [facility] Hemoglobin measurementOrdere d By: Sukhdev Farrar on 02-04-2025 Hemoglobin (Bld) [Mass/Vol] 9.1 g/dL Low 12.0-15.0 [facility] MCV (mean corpuscular volume ) determinationOrdered By: Sukhdev Farrar on 02-04-2025 MCV (RBC) [Entitic vol] 93.4 fL 81-99 [facility] Mean corpuscular hemoglobin (MCH) determinationOrdered By: Sukhdev Farrar on 02-04-2025 MCH (RBC) [Entitic mass] 28.8 pg 27.0-32.0 [facility] Mean corpuscular hemoglobin concentration (MCHC) determinationOrdered By: Sukhdev Farrar on 02-04-2025 MCHC (RBC) [Mass/Vol] 30.8 g/dL Low 32-36 [facility] Mean platelet volume determi nationOrdered By: Sukhdev Farrar on 02-04-2025 Platelet mean volume (Bld) [Entitic vol] 10.4 fL 6.2-12.0 [facility] Platelet countOrdered By: Leonard on 02-04-2025 Platelets (Bld) [#/Vol] 241 10*3/uL 150-450 [facility] Potassium measurement (mass/ volume)Ordered By: Sukhdev Farrar on 02-04-2025 Potassium (Unsp spec) [Mass/Vol] 3.6 mmol/L 3.3-5.1 [facility] RBC Auto (Bld) [#/Vol]Ordere d By: Sukhdev Farrar on 02-04-2025 RBC (Bld) [#/Vol] 3.16 10*6/uL Low 4.2-5.4 [facility] Serum creatinine measurement (mass/volume)Ordered By: Sukhdev Farrar on 02-04-2025 Creatinine [Mass/Vol] 0.82 mg/dL 0.70-1.20 [facility] Serum glucose measurement (m ass/volume)Ordered By: Sukhdev Farrar on 02-04-2025 Glucose [Mass/Vol] 96 mg/dL 70-99 [facility] Serum or plasma calcium valerio urement (mass/volume)Ordered By: Sukhdev Farrar on 02-04-2025 Calcium [Mass/Vol] 9.2 mg/dL 7.6-11.0 [facility] Serum or plasma urea nitroge n measurement (mass/volume)Ordered By: Sukhdev Farrar on 02-04-2025 Urea nitrogen [Mass/Vol] 13 mg/dL 4-19 [facility] Sodium levelOrdered By: Sukhdev Farrar on 02-04-2025 Sodium [Moles/Vol] 143 mmol/L 133-145 [facility] White blood cell (WBC) count Ordered By: Sukhdev Farrar on 02-04-2025 WBC (Bld) [#/Vol] 4.2 10*3/uL Low 4.4-11.0 [facility] Anion gap in Serum or Plasma Ordered By: Sukhdev Farrar on 02-03-2025 Anion gap [Moles/Vol] 12 mmol/L 5-15 [facility] BUN/creatinine ratioOrdered By: Sukhdev Farrar on 02-03-2025 Urea nitrogen/Creatinine [Mass ratio] 18.0 mg/mg 10- [facility] Basic Metabolic Profile (BMP )on 02-03-2025 BUN/CRE 18.0 RATIO Normal - [facility] Comment on above: Order Comment: 315.1 Performed By: #### L [id number] #### [facility] [place], [address] Calcium [Mass/Vol] 9.2 mg/dL Normal 7.6-11.0 [facility] Comment on above: Order Comment: 315.1 Performed By: #### L [id number] #### [facility] [address] [place], [address] Chloride [Moles/Vol] 109 mmol/L High 98-108 [facility] Comment on above: Order Comment: 315.1 Performed By: #### L 499.0043 #### [facility] [address] [place], [address] CO2 [Moles/Vol] 21.8 mmol/L Normal 21.0-32.0 [facility] Comment on above: Order Comment: 315.1 Performed By: #### L [id number] #### [facility] [address] [place], [address] Creatinine [Mass/Vol] 0.78 mg/dL Normal 0.70-1.20 [facility] Comment on above: Order Comment: 315.1 Performed By: #### L [id number] #### [facility] [address] [place], [address] GAP 12 Normal 5-15 [facility] Comment on above: Order Comment: 315.1 Performed By: #### L [id number] #### [facility] [address] [place], [address] GFR/1.73 sq M.predicted among non-blacks MDRD (S/P/Bld) [Vol rate/Area] 78 mL/min/{1.73_m2} Normal >60 [facility] Comment on above: Order Comment: 315.1 Result Comment: mL/m in/1.73m2 CKD-EPI Creatinine Equation (2020) Performed By: #### L 499.0043 #### [facility] [address] [place], [address] Glucose [Mass/Vol] 95 mg/dL Normal 70-99 [facility] Comment on above: Order Comment: 315.1 Performed By: #### L 499.0043 #### [facility] [address] [place], [address] Potassium [Moles/Vol] 3.4 mmol/L Normal 3.3-5.1 [facility] Comment on above: Order Comment: 315.1 Performed By: #### L 499.0043 #### [facility] [address] [place], [address] Sodium [Moles/Vol] 142 mmol/L Normal 133-145 [facility] Comment on above: Order Comment: 315.1 Performed By: #### L 499.0043 #### [facility] [address] [place], [address] Urea nitrogen [Mass/Vol] 14 mg/dL Normal 4-19 [facility] Comment on above: Order Comment: 315.1 Performed By: #### L 499.0043 #### [facility] [address] [place], [address] Carbon dioxide, total [Moles /volume] in Central venous bloodOrdered By: Sukhdev Farrar on 02-03-2025 CO2 [Moles/Vol] 21.8 mmol/L 21.0-32.0 [facility] Chloride assayOrdered By: Leonard on 02-03-2025 Chloride [Moles/Vol] 109 mmol/L High 98-108 [facility] Glomerular filtration rate ( GFR) estimation/1.73 sq m using serum, plasma, or whole bOrdered By: Sukhdev Farrar on 02-03-2025 GFR/1.73 sq M.predicted among non-blacks MDRD (S/P/Bld) [Vol rate/Area] 78 mL/min/{1.73_m2} >60 [facility] Comment on above: mL/min/1.73m2 CKD-EP I Creatinine Equation (2020) Potassium measurement (mass/ volume)Ordered By: Sukhdev Farrar on 02-03-2025 Potassium (Unsp spec) [Mass/Vol] 3.4 mmol/L 3.3-5.1 [facility] Serum creatinine measurement (mass/volume)Ordered By: Sukhdev Farrar on 02-03-2025 Creatinine [Mass/Vol] 0.78 mg/dL 0.70-1.20 [facility] Serum glucose measurement (m ass/volume)Ordered By: Sukhdev Farrar on 02-03-2025 Glucose [Mass/Vol] 95 mg/dL 70-99 [facility] Serum or plasma calcium valerio urement (mass/volume)Ordered By: Sukhdev Farrra on 02-03-2025 Calcium [Mass/Vol] 9.2 mg/dL 7.6-11.0 [facility] Serum or plasma urea nitroge n measurement (mass/volume)Ordered By: Sukhdev Farrar on 02-03-2025 Urea nitrogen [Mass/Vol] 14 mg/dL 4-19 [facility] Sodium levelOrdered By: Sukhdev Farrar on 02-03-2025 Sodium [Moles/Vol] 142 mmol/L 133-145 [facility] Anion gap in Serum or Plasma Ordered By: Sukhdev Farrar on 01-28-2025 Anion gap [Moles/Vol] 11 mmol/L 5-15 [facility] BUN/creatinine ratioOrdered By: Sukhdev Farrar on 01-28-2025 Urea nitrogen/Creatinine [Mass ratio] 18.3 mg/mg 10- [facility] Basic Metabolic Profile (BMP )on 01-28-2025 BUN/CRE 18.3 RATIO Normal - [facility] Comment on above: Order Comment: 315.1 Performed By: #### L 300.4480 #### [facility] [address] [place], [place], [address] (096) Calcium [Mass/Vol] 9.1 mg/dL Normal 7.6-11.0 [facility] Comment on above: Order Comment: 315.1 Performed By: #### L 300.4310 #### [facility] [address] [place], [address] Chloride [Moles/Vol] 108 mmol/L Normal 98-108 [facility] Comment on above: Order Comment: 315.1 Performed By: #### L 300.4310 #### [facility] [address] [place], [address] CO2 [Moles/Vol] 23.7 mmol/L Normal 21.0-32.0 [facility] Comment on above: Order Comment: 315.1 Performed By: #### L 300.4310 #### [facility] [address] [place], [address] Creatinine [Mass/Vol] 0.81 mg/dL Normal 0.70-1.20 [facility] Comment on above: Order Comment: 315.1 Performed By: #### L 300.4310 #### [facility] [address] [place], [address] GAP 11 Normal 5-15 [facility] Comment on above: Order Comment: 315.1 Performed By: #### L 300.4310 #### [facility] [address] [place], [address] GFR/1.73 sq M.predicted among non-blacks MDRD (S/P/Bld) [Vol rate/Area] 74 mL/min/{1.73_m2} Normal >60 [facility] Comment on above: Order Comment: 315.1 Result Comment: mL/m in/1.73m2 CKD-EPI Creatinine Equation (2020) Performed By: #### L 300.4310 #### [facility] [address] [place], [address] Glucose [Mass/Vol] 94 mg/dL Normal 70-99 [facility] Comment on above: Order Comment: 315.1 Performed By: #### L 300.4310 #### [facility] [address] [place], [address] Potassium [Moles/Vol] 3.7 mmol/L Normal 3.3-5.1 [facility] Comment on above: Order Comment: 315.1 Performed By: #### L 300.4310 #### [facility] [address] [place], [address] Sodium [Moles/Vol] 143 mmol/L Normal 133-145 [facility] Comment on above: Order Comment: 315.1 Performed By: #### L 300.4310 #### [facility] [address] [place], [address] Urea nitrogen [Mass/Vol] 15 mg/dL Normal 4-19 [facility] Comment on above: Order Comment: 315.1 Performed By: #### L 300.4310 #### [facility] [address] [place], [address] CBC-Complete Blood Cnt No Di ffon 01-28-2025 Erythrocyte distribution width (RBC) [Ratio] 16.4 % High 11.6-14.6 [facility] Comment on above: Order Comment: 315.1 Performed By: #### L 300.4310 #### [facility] [address] [place], [address] Hematocrit (Bld) [Volume fraction] 28.4 % Low 37-47 [facility] Comment on above: Order Comment: 315.1 Performed By: #### L 300.4310 #### [facility] [address] [place], [address] Hemoglobin (Bld) [Mass/Vol] 8.8 g/dL Low 12.0-15.0 [facility] Comment on above: Order Comment: 315.1 Performed By: #### L 300.4310 #### [facility] [address] [place], [address] MCH (RBC) [Entitic mass] 29.3 pg Normal 27.0-32.0 [facility] Comment on above: Order Comment: 315.1 Performed By: #### L 300.4310 #### [facility] [address] [place], [address] MCHC (RBC) [Mass/Vol] 31.0 g/dL Low 32-36 [facility] Comment on above: Order Comment: 315.1 Performed By: #### L 300.4310 #### [facility] [address] [place], [address] MCV (RBC) [Entitic vol] 94.7 fL Normal 81-99 [facility] Comment on above: Order Comment: 315.1 Performed By: #### L 300.4310 #### [facility] [address] [place], [address] Platelet mean volume (Bld) [Entitic vol] 10.1 fL Normal 6.2-12.0 [facility] Comment on above: Order Comment: 315.1 Performed By: #### L 300.4310 #### [facility] [address] [place], [address] Platelets (Bld) [#/Vol] 311 10*3/uL Normal 150-450 [facility] Comment on above: Order Comment: 315.1 Performed By: #### L 300.4310 #### [facility] [address] [place], [address] RBC (Bld) [#/Vol] 3.00 10*6/uL Low 4.2-5.4 [facility] Comment on above: Order Comment: 315.1 Performed By: #### L 300.4310 #### [facility] [address] [place], [address] RDW SD 55.8 fl High 35.1-43.9 [facility] Comment on above: Order Comment: 315.1 Performed By: #### L 300.4310 #### [facility] [address] [place], [address] WBC (Bld) [#/Vol] 5.5 10*3/uL Normal 4.4-11.0 [facility] Comment on above: Order Comment: 315.1 Performed By: #### L 343.2179 #### [facility] [address] [place], [address] Carbon dioxide, total [Moles /volume] in Central venous bloodOrdered By: Sukhdev Farrar on 01-28-2025 CO2 [Moles/Vol] 23.7 mmol/L 21.0-32.0 [facility] Chloride assayOrdered By: Leonard on 01-28-2025 Chloride [Moles/Vol] 108 mmol/L 98-108 [facility] Erythrocyte distribution wid th ratioOrdered By: Sukhdev Farrar on 01-28-2025 Erythrocyte distribution width (RBC) [Ratio] 16.4 % High 11.6-14.6 [facility] Erythrocyte distribution wid th standard deviationOrdered By: Sukhdev Farrar on 01-28-2025 Erythrocyte distribution width (RBC) [Ratio] 55.8 fl High 35.1-43.9 [facility] Glomerular filtration rate ( GFR) estimation/1.73 sq m using serum, plasma, or whole bOrdered By: Sukhdev Farrar on 01-28-2025 GFR/1.73 sq M.predicted among non-blacks MDRD (S/P/Bld) [Vol rate/Area] 74 mL/min/{1.73_m2} >60 [facility] Comment on above: mL/min/1.73m2 CKD-EP I Creatinine Equation (2020) Hematocrit Auto (Bld) [Volum e fraction]Ordered By: Sukhdev Farrar on 01-28-2025 Hematocrit (Bld) [Volume fraction] 28.4 % Low 37-47 [facility] Hemoglobin measurementOrdere d By: Sukhdev Farrar on 01-28-2025 Hemoglobin (Bld) [Mass/Vol] 8.8 g/dL Low 12.0-15.0 [facility] MCV (mean corpuscular volume ) determinationOrdered By: Sukhdev Farrar on 01-28-2025 MCV (RBC) [Entitic vol] 94.7 fL 81-99 [facility] Mean corpuscular hemoglobin (MCH) determinationOrdered By: Sukhdev Farrar on 01-28-2025 MCH (RBC) [Entitic mass] 29.3 pg 27.0-32.0 [facility] Mean corpuscular hemoglobin concentration (MCHC) determinationOrdered By: Sukhdev Farrar on 01-28-2025 MCHC (RBC) [Mass/Vol] 31.0 g/dL Low 32-36 [facility] Mean platelet volume determi nationOrdered By: Sukhdev Farrar on 01-28-2025 Platelet mean volume (Bld) [Entitic vol] 10.1 fL 6.2-12.0 [facility] Platelet countOrdered By: Leonard on 01-28-2025 Platelets (Bld) [#/Vol] 311 10*3/uL 150-450 [facility] Potassium measurement (mass/ volume)Ordered By: Sukhdev Farrar on 01-28-2025 Potassium (Unsp spec) [Mass/Vol] 3.7 mmol/L 3.3-5.1 [facility] RBC Auto (Bld) [#/Vol]Ordere d By: Sukhdev Farrar on 01-28-2025 RBC (Bld) [#/Vol] 3.00 10*6/uL Low 4.2-5.4 [facility] Serum creatinine measurement (mass/volume)Ordered By: Sukhdev Farrar on 01-28-2025 Creatinine [Mass/Vol] 0.81 mg/dL 0.70-1.20 [facility] Serum glucose measurement (m ass/volume)Ordered By: Sukhdev Farrar on 01-28-2025 Glucose [Mass/Vol] 94 mg/dL 70-99 [facility] Serum or plasma calcium valerio urement (mass/volume)Ordered By: Sukhdev Farrar on 01-28-2025 Calcium [Mass/Vol] 9.1 mg/dL 7.6-11.0 [facility] Serum or plasma urea nitroge n measurement (mass/volume)Ordered By: Sukhdev Farrar on 01-28-2025 Urea nitrogen [Mass/Vol] 15 mg/dL 4-19 [facility] Sodium levelOrdered By: Sukhdev Farrar on 01-28-2025 Sodium [Moles/Vol] 143 mmol/L 133-145 [facility] White blood cell (WBC) count Ordered By: Sukhdev Farrar on 01-28-2025 WBC (Bld) [#/Vol] 5.5 10*3/uL 4.4-11.0 [facility] [id number] 01-26-2025 [id number] Normal [facility] [id number] Normal [facility] [id number] Normal [facility] BASIC METABOLIC PANELon 01-11 Anion gap [Moles/Vol] 7 mmol/L Normal 3-13 [facility] Comment on above: Performed By: #### L AB103, LAB15, [id number] ####In House Cra: CHELSIE ISAACS ([id number])[facility])[address] [place] [address] Calcium [Mass/Vol] 8.4 mg/dL Low 8.8-10.0 [facility] Comment on above: Performed By: #### L AB103, LAB15, [id number] ####In House Cra: CHELSIE ISAACS ([id number])[facility])[address] [place] [address] Chloride [Moles/Vol] 114 mmol/L High 98-107 [facility] Comment on above: Performed By: #### L AB103, LAB15, [id number] ####In House Cra: CHELSIE ISAACS ([id number])[facility])[address] [place] [address] CO2 [Moles/Vol] 21 mmol/L Low 23-31 [facility] Comment on above: Performed By: #### L AB103, LAB15, [id number] ####In House Cra: CHELSIE ISAACS ([id number])[facility])[address] [place] [address] Creatinine [Mass/Vol] 0.70 mg/dL Normal 0.57-1.11 [facility] Comment on above: Performed By: #### L AB103, LAB15, [id number] ####In House Cra: CHELSIE ISAACS ([id number])[facility])[address] [place] [address] [place] GLOMERULAR FILTRATION RATE ML/MIN/1.73 SQ M.PREDICTED 88.7 mL/min/1.73m*2 Normal >60.0 [facility] Comment on above: Result Comment: Calc ulation based on the Chronic Kidney Disease Epidemiology Collaboration (CKD-EPI) equation refit without adjustment for race Performed By: #### L AB103, LAB15, [id number] ####In House Cra: CHELSIE ISAACS ([id number])[address] Glucose [Mass/Vol] 95 mg/dL Normal 82-115 [facility] Comment on above: Performed By: #### L AB103, LAB15, [id number] ####In House Cra: CHELSIE ISAACS ([id number])[address] Potassium [Moles/Vol] 3.3 mmol/L Low 3.5-5.1 [facility] Comment on above: Result Comment: [facility] potassium values may be up to 0.5 mmol/L lower than serum values. Performed By: #### L AB103, LAB15, [id number] ####In House Cra: CHELSIE ISAACS ([id number])[facility])[address] [place] [address] [place] Sodium [Moles/Vol] 142 mmol/L Normal 136-145 [facility] Comment on above: Performed By: #### L AB103, LAB15, [id number] ####In House Cra: CHELSIE ISAACS ([id number])[facility])[address] [place] [address] [place] Urea nitrogen [Mass/Vol] 18 mg/dL Normal 9-23 [facility] Comment on above: Performed By: #### L AB103, LAB15, [id number] ####In House Cra: CHELSIE ISAACS ([id number])[facility])[address] [place] [address] Basic metabolic 1998 panelon 01-26-2025 Anion gap [Moles/Vol] 7 mmol/L 3 - 13 mmol/L [facility] Calcium [Mass/Vol] 8.4 mg/dL Low 8.8 - 10. 0 mg/dL [facility] Chloride [Moles/Vol] 114 mmol/L High 98 - 10 7 mmol/L [facility] CO2 [Moles/Vol] 21 mmol/L Low 23 - 31 mmol/L [facility] Creatinine [Mass/Vol] 0.7 mg/dL 0.57 - 1.11 mg/dL [facility] GFR/1.73 sq M.predicted (S/P/Bld) [Vol rate/Area] 88.7 mL/min - PINF [facility] Glucose [Mass/Vol] 95 mg/dL 82 - 115 mg/dL [facility] Interpretation and review of laboratory results Abnormal [facility] Potassium [Moles/Vol] 3.3 mmol/L Low 3.5 - 5.1 mmol/L [facility] Sodium [Moles/Vol] 142 mmol/L 136 - 145 mmol/L [facility] Urea nitrogen [Mass/Vol] 18 mg/dL 9 - 23 mg/d L [facility] CBC (HEMOGRAM)on 01-26-2025 Erythrocyte distribution width (RBC) [Ratio] 16.7 % High 11.5-15.0 [facility] Comment on above: Performed By: #### L [id number] ####In House Cra: CHELSIE [id number])[facility])[address] [place] [address] Hematocrit (Bld) [Volume fraction] 28.1 % Low 35.0-47.0 [facility] Comment on above: Performed By: #### L AB294 ####In House Cra: CHELSIE [id number])[address] Hemoglobin (Bld) [Mass/Vol] 8.8 g/dL Low 11.7-16.0 [facility] Comment on above: Performed By: #### L AB294 ####In House Cra: CHELSIE [id number])[facility] ([facility])[address] [place] [address] MCH (RBC) [Entitic mass] 29.5 pg Normal 26.0-34.0 [facility] Comment on above: Performed By: #### L AB294 ####In House Cra: CHELSIE ISAACS ([id number])[facility] ([facility])[address] [place] [address] MCHC 31.3 % Normal 30.5-36.0 [facility] Comment on above: Performed By: #### L [id number] ####In House Cra: CHELSIE ISAACS ([id number])[facility] ([facility])[address] [place] [address] MCV (RBC) [Entitic vol] 94.3 fL Normal 77.0-99.0 [facility] Comment on above: Performed By: #### L [id number] ####In House Cra: CHELSIE ISAACS ([id number])[facility] ([facility])[address] [place] [address] Platelet mean volume (Bld) [Entitic vol] 9.9 fL Normal 9.0-12.7 [facility] Comment on above: Performed By: #### L [id number] ####In House Cra: CHELSIE ISAACS ([id number])[facility] ([facility])[address] [place] [address] Platelets (Bld) [#/Vol] 311 10*3/uL Normal 140-440 [facility] Comment on above: Performed By: #### L [id number] ####In House Cra: CHELSIE ISAACS ([id number])[facility] ([facility])[address] [place] [address] RBC (Bld) [#/Vol] 2.98 10*6/uL Low 3.80-5.20 [facility] Comment on above: Performed By: #### L [id number] ####In House Cra: CHELSIE ISAACS ([id number])[facility] ([facility])[address] [place] [address] [place] WBC (Bld) [#/Vol] 6.1 10*3/uL Normal 3.6-10.7 [facility] Comment on above: Performed By: #### L [id number] ####In House Cra: CHELSIE ISAACS ([id number])[facility] ([facility])[address] [place] [address] CBC panel Auto (Bld)on 01-26 Erythrocyte distribution width (RBC) [Ratio] 16.7 % High 11.5 - 15.0 % [facility] Hematocrit (Bld) [Volume fraction] 28.1 % Low 35.0 - 47.0 % [facility] Hemoglobin (Bld) [Mass/Vol] 8.8 g/dL Low 11.7 - 16.0 g/dL [facility] Interpretation and review of laboratory results Abnormal [facility] MCH (RBC) [Entitic mass] 29.5 pg 26. 0 - 34.0 pg [facility] MCHC (RBC) [Mass/Vol] 31.3 % 30.5 - 36.0 % [facility] MCV (RBC) [Entitic vol] 94.3 fL 77.0 - 99.0 fL [facility] Platelet mean volume (Bld) [Entitic vol] 9.9 fL 9.0 - 12.7 fL [facility] Platelets (Bld) [#/Vol] 311 10*3/uL 140 - 440 10*3/uL [facility] RBC (Bld) [#/Vol] 2.98 10*6/uL Low 3.80 - 5.2 0 10*6/uL [facility] WBC (Bld) [#/Vol] 6.1 10*3/uL 3.6 - 10.7 10*3/uL [facility] - Chemistry and C hemistry - challengeon 01-26-2025 Magnesium [Mass/Vol] 1.6 mg/dL 1.6 - 2 .6 mg/dL [facility] MAGNESIUMon 01-26-2025 Magnesium [Mass/Vol] 1.6 mg/dL Normal 1.6-2.6 [facility] Comment on above: Result Comment: ORDE R COMMENTS:Higher values can be expected in females during menses. Performed By: #### L AB103, LAB15, [id number] ####In House Cra: CHELSIE ISAACS ([id number])[facility] ([facility])[address] [place] [address] [place] Magnesium [Mass/Vol]on 01-26 [facility] No Panel Informationon 01-26 Interpretation and review of laboratory results Normal [facility] Nursing Noteon 01-26-2025 Nursing Note Report called to SNF . Normal [facility] PHOSPHORUSon 01-26-2025 Phosphate [Mass/Vol] 4.0 mg/dL Normal 2.3-4.7 [facility] Comment on above: Performed By: #### L AB103, LAB15, [id number] ####In House Cra: CHELSIE ISAACS ([id number])[facility] ([facility])[address] [place] [address] [place] Phosphate [Moles/Vol]on 01-11 Phosphate [Mass/Vol] 4 mg/dL 2.3 - 4 .7 mg/dL [facility] Progress Noteon 01-26-2025 Progress Note Normal [facility] Progress Note Normal [facility] Progress Note Normal [facility] Progress Note Normal [facility] CBC (HEMOGRAM)on 01-25-2025 Erythrocyte distribution width (RBC) [Ratio] 16.5 % High 11.5-15.0 [facility] Comment on above: Performed By: #### L [id number] ####In House Cra: CHELSIE ISAACS ([id number])[facility] ([facility])[address] [place] [address] Hematocrit (Bld) [Volume fraction] 25.5 % Low 35.0-47.0 [facility] Comment on above: Performed By: #### L [id number] ####In House Cra: CHELSIE ISAACS ([id number])[facility] ([facility])[address] [place] [address] Hemoglobin (Bld) [Mass/Vol] 7.9 g/dL Low 11.7-16.0 [facility] Comment on above: Performed By: #### L [id number] ####In House Cra: CHELSIE ISAACS ([id number])[facility])[address] [place] [address] MCH (RBC) [Entitic mass] 29.5 pg Normal 26.0-34.0 [facility] Comment on above: Performed By: #### L [id number] ####In House Cra: CHELSIE ISAACS ([id number])[facility])[address] [place] [address] MCHC 31.0 % Normal 30.5-36.0 [facility] Comment on above: Performed By: #### L [id number] ####In House Cra: CHELSIE ISAACS ([id number])[facility])[address] [place] [address] MCV (RBC) [Entitic vol] 95.1 fL Normal 77.0-99.0 [facility] Comment on above: Performed By: #### L [id number] ####In House Cra: CHELSIE ISAACS ([id number])[facility])[address] [place] [address] Platelet mean volume (Bld) [Entitic vol] 10.2 fL Normal 9.0-12.7 [facility] Comment on above: Performed By: #### L [id number] ####In House Cra: CHELSIE ISAACS ([id number])[facility])[address] [place] [address] [place] Platelets (Bld) [#/Vol] 317 10*3/uL Normal 140-440 [facility] Comment on above: Performed By: #### L [id number] ####In House Cra: CHELSIE ISAACS ([id number])[facility])[address] [place] [address] RBC (Bld) [#/Vol] 2.68 10*6/uL Low 3.80-5.20 [facility] Comment on above: Performed By: #### L [id number] ####In House Cra: CHELSIE ISAACS ([id number])[facility] ([facility])[address] [place] [address] WBC (Bld) [#/Vol] 7.1 10*3/uL Normal 3.6-10.7 [facility] Comment on above: Performed By: #### L [id number] ####In House Cra: CHELSIE ISAACS ([id number])[facility] [place] [address] CBC panel Auto (Bld)on 01-25 Erythrocyte distribution width (RBC) [Ratio] 16.5 % High 11.5 - 15.0 % [facility] Hematocrit (Bld) [Volume fraction] 25.5 % Low 35.0 - 47.0 % [facility] Hemoglobin (Bld) [Mass/Vol] 7.9 g/dL Low 11.7 - 16.0 g/dL [facility] Interpretation and review of laboratory results Abnormal [facility] MCH (RBC) [Entitic mass] 29.5 pg 26. 0 - 34.0 pg [facility] MCHC (RBC) [Mass/Vol] 31 % 30.5 - 36.0 % [facility] MCV (RBC) [Entitic vol] 95.1 fL 77.0 - 99.0 fL [facility] Platelet mean volume (Bld) [Entitic vol] 10.2 fL 9.0 - 12.7 fL [facility] Platelets (Bld) [#/Vol] 317 10*3/uL 140 - 440 10*3/uL [facility] RBC (Bld) [#/Vol] 2.68 10*6/uL Low 3.80 - 5.2 0 10*6/uL [facility] WBC (Bld) [#/Vol] 7.1 10*3/uL 3.6 - 10.7 10*3/uL [facility] COMPREHENSIVE METABOLIC PANE Lino 01-25-2025 Albumin [Mass/Vol] 3.0 g/dL Low 3.4-4.8 [facility] Comment on above: Performed By: #### L AB17, FTE030, [id number] ####In House Cra: CHELSIE ISAACS ([id number])[facility] [place] [address] ALP [Catalytic activity/Vol] 69 U/L Normal 40-150 [facility] Comment on above: Performed By: #### L AB17, JCF219, [id number] ####In House Cra: CHELSIE ISAACS ([id number])[facility] ([facility])[address] [place] [address] ALT [Catalytic activity/Vol] 33 U/L High <30 [facility] Comment on above: Performed By: #### L AB17, XUD822, [id number] ####In House Cra: CHELSIE ISAACS ([id number])[facility] ([facility])[address] [place] [address] Anion gap [Moles/Vol] 10 mmol/L Normal 3-13 [facility] Comment on above: Performed By: #### Joseph AB17, HAP613, [id number] ####In House Cra: CHELSIE ISAACS ([id number])[facility] ([facility])[address] [place] [address] AST [Catalytic activity/Vol] 30 U/L Normal <34 [facility] Comment on above: Performed By: #### Joseph AB17, [id number], [id number] ####In House Cra: CHELSIE ISAACS ([id number])[facility] ([facility])[address] [place] [address] Bilirubin [Mass/Vol] 0.5 mg/dL Normal <1.2 [facility] Comment on above: Performed By: #### Joseph AB17, [id number], [id number] ####In House Cra: CHELSIE ISAACS ([id number])[facility] ([facility])[address] [place] [address] Calcium [Mass/Vol] 8.6 mg/dL Low 8.8-10.0 [facility] Comment on above: Performed By: #### L AB17, [id number], [id number] ####In House Cra: CHELSIE ISAACS ([id number])[facility] ([facility])[address] [place] [address] [place] Chloride [Moles/Vol] 112 mmol/L High 98-107 [facility] Comment on above: Performed By: #### L AB17, [id number], [id number] ####In House Cra: CHELSIE ISAACS ([id number])[facility])[address] [place] [address] CO2 [Moles/Vol] 20 mmol/L Low 23-31 [facility] Comment on above: Performed By: #### L AB17, [id number], [id number] ####In House Cra: CHELSIE ISAACS ([id number])[facility])[address] [place] [address] Creatinine [Mass/Vol] 0.76 mg/dL Normal 0.57-1.11 [facility] Comment on above: Performed By: #### Joseph AB17, [id number], [id number] ####In House Cra: CHELSIE ISAACS ([id number])[facility])[address] [place] [address] [place] GLOMERULAR FILTRATION RATE ML/MIN/1.73 SQ M.PREDICTED 80.3 mL/min/1.73m*2 Normal >60.0 [facility] Comment on above: Result Comment: Calc ulation based on the Chronic Kidney Disease Epidemiology Collaboration (CKD-EPI) equation refit without adjustment for race Performed By: #### Joseph AB17, [id number], [id number] ####In House Cra: CHELSIE ISAACS ([id number])[facility])[address] [place] [address] Glucose [Mass/Vol] 103 mg/dL Normal 82-115 [facility] Comment on above: Performed By: #### L AB17, [id number], [id number] ####In House Cra: CHELSIE ISAACS ([id number])[facility])[address] [place] [address] [place] Potassium [Moles/Vol] 3.2 mmol/L Low 3.5-5.1 [facility] Comment on above: Result Comment: [facility] potassium values may be up to 0.5 mmol/L lower than serum values. Performed By: #### L AB17, [id number], [id number] ####In House Cra: CHELSIE ISAACS ([id number])[facility] [place] [address] Protein [Mass/Vol] 6.2 g/dL Low 6.4-8.3 [facility] Comment on above: Performed By: #### L AB17, [id number], [id number] ####In House Cra: CHELSIE ISAACS ([id number])[facility])[address] [place] [address] Sodium [Moles/Vol] 142 mmol/L Normal 136-145 [facility] Comment on above: Performed By: #### L AB17, HHW343, [id number] ####In House Cra: CHELSIE ISAACS ([phone])[facility])[address] [place] [address] Urea nitrogen [Mass/Vol] 18 mg/dL Normal 9-23 [facility] Comment on above: Performed By: #### L AB17, SNI696, [id number] ####In House Cra: CHELSIE ISAACS ([id number])[facility] ([facility])[address] [place] [address] Comprehensive metabolic 1998 panelon 01-25-2025 Albumin [Mass/Vol] 3 g/dL Low 3.4 - 4.8 g/dL [facility] ALP [Catalytic activity/Vol] 69 U/L 40 - 150 U/L [facility] ALT [Catalytic activity/Vol] 33 U/L High NINF - 30 U/L [facility] Anion gap [Moles/Vol] 10 mmol/L 3 - 13 mmol/L [facility] AST [Catalytic activity/Vol] 30 U/L NINF - 34 U/L [facility] Bilirubin [Mass/Vol] 0.5 mg/dL NINF - 1.2 mg/dL [facility] Calcium [Mass/Vol] 8.6 mg/dL Low 8.8 - 10. 0 mg/dL [facility] Chloride [Moles/Vol] 112 mmol/L High 98 - 10 7 mmol/L [facility] CO2 [Moles/Vol] 20 mmol/L Low 23 - 31 mmol/L [facility] Creatinine [Mass/Vol] 0.76 mg/dL 0.57 - 1.11 mg/dL [facility] GFR/1.73 sq M.predicted (S/P/Bld) [Vol rate/Area] 80.3 mL/min - PINF [facility] Glucose [Mass/Vol] 103 mg/dL 82 - 115 mg/dL [facility] Interpretation and review of laboratory results Abnormal [facility] Potassium [Moles/Vol] 3.2 mmol/L Low 3.5 - 5.1 mmol/L [facility] Protein [Mass/Vol] 6.2 g/dL Low 6.4 - 8.3 g/dL [facility] Sodium [Moles/Vol] 142 mmol/L 136 - 145 mmol/L [facility] Urea nitrogen [Mass/Vol] 18 mg/dL 9 - 23 mg/d L [facility] Laboratory - Chemistry and C hemistry - challengeon 01-25-2025 Magnesium [Mass/Vol] 1.7 mg/dL 1.6 - 2 .6 mg/dL [facility] MAGNESIUMon 01-25-2025 Magnesium [Mass/Vol] 1.7 mg/dL Normal 1.6-2.6 [facility] Comment on above: Result Comment: SHARA Hand COMMENTS:Higher values can be expected in females during menses. Performed By: #### L AB17, [id number], [id number] ####In House Cra: CHELSIE ISAACS ([id number])[facility])[address] [place] [address] Magnesium [Mass/Vol]on 01-25 Interpretation and review of laboratory results Normal [facility] No Panel Informationon 01-25 [facility] PHOSPHORUSon 01-25-2025 Phosphate [Mass/Vol] 4.0 mg/dL Normal 2.3-4.7 [facility] Comment on above: Performed By: #### L AB17, [id number], [id number] ####In House Cra: CHELSIE ISAACS ([id number])[facility])[address] [place] [address] [place] Phosphate [Moles/Vol]on 01-11 Interpretation and review of laboratory results Normal [facility] Phosphate [Mass/Vol] 4 mg/dL 2.3 - 4 .7 mg/dL [facility] Progress Noteon 01-25-2025 Progress Note Normal [facility] XR CHEST 1 VIEWon 01-25-2025 XR CHEST 1 VIEW Normal [facility] XR Chest Single viewon 01-25 [facility] Radiology Study observation (narrative) Leda [facility] XR Chest Single viewOrdered By: Hope Villeda on 01-25-2025 [facility] [employer] Work Phone: 30on 01-24-2025 30 Normal [facility] 30 Normal [facility] 30 Normal [facility] CBC (HEMOGRAM)on 01-24-2025 Erythrocyte distribution width (RBC) [Ratio] 16.7 % High 11.5-15.0 [facility] Comment on above: Performed By: #### L AB294 ####In House Cra: CHELSIE ISAACS ([id number])[facility])[address] [place] [address] Hematocrit (Bld) [Volume fraction] 27.5 % Low 35.0-47.0 [facility] Comment on above: Performed By: #### L AB294 ####In House Cra: CHELSIE ISAACS ([id number])[address] Hemoglobin (Bld) [Mass/Vol] 8.6 g/dL Low 11.7-16.0 [facility] Comment on above: Performed By: #### L AB294 ####In House Cra: CHELSIE ISAACS ([id number])[facility])[address] [place] [address] MCH (RBC) [Entitic mass] 29.4 pg Normal 26.0-34.0 [facility] Comment on above: Performed By: #### L AB294 ####In House Cra: CHELSIE ISAACS ([id number])[address] MCHC 31.3 % Normal 30.5-36.0 [facility] Comment on above: Performed By: #### L AB294 ####In House Cra: CHELSIE ISAACS ([id number])[facility] ([facility])[address] [place] [address] MCV (RBC) [Entitic vol] 93.9 fL Normal 77.0-99.0 [facility] Comment on above: Performed By: #### L AB294 ####In House Cra: CHELSIE ISAACS ([id number])[facility])[address] [place] [address] Platelet mean volume (Bld) [Entitic vol] 10.0 fL Normal 9.0-12.7 [facility] Comment on above: Performed By: #### L AB294 ####In House Cra: CHELSIE ISAACS ([id number])[facility])[address] [place] [address] Platelets (Bld) [#/Vol] 310 10*3/uL Normal 140-440 [facility] Comment on above: Performed By: #### L AB294 ####In House Cra: CHELSIE ISAACS ([id number])[facility])[address] [place] [address] RBC (Bld) [#/Vol] 2.93 10*6/uL Low 3.80-5.20 [facility] Comment on above: Performed By: #### L AB294 ####In House Cra: CHELSIE ISAACS ([id number])[facility])[address] [place] [address] WBC (Bld) [#/Vol] 8.9 10*3/uL Normal 3.6-10.7 [facility] Comment on above: Performed By: #### L AB294 ####In House Cra: CHELSIE ISAACS ([id number])[facility])[address] [place] [address] CBC panel Auto (Bld)on 01-24 Erythrocyte distribution width (RBC) [Ratio] 16.7 % High 11.5 - 15.0 % [facility] Hematocrit (Bld) [Volume fraction] 27.5 % Low 35.0 - 47.0 % [facility] Hemoglobin (Bld) [Mass/Vol] 8.6 g/dL Low 11.7 - 16.0 g/dL [facility] Interpretation and review of laboratory results Abnormal [facility] MCH (RBC) [Entitic mass] 29.4 pg 26. 0 - 34.0 pg [facility] MCHC (RBC) [Mass/Vol] 31.3 % 30.5 - 36.0 % [facility] MCV (RBC) [Entitic vol] 93.9 fL 77.0 - 99.0 fL [facility] Platelet mean volume (Bld) [Entitic vol] 10 fL 9.0 - 12.7 fL [facility] Platelets (Bld) [#/Vol] 310 10*3/uL 140 - 440 10*3/uL [facility] RBC (Bld) [#/Vol] 2.93 10*6/uL Low 3.80 - 5.2 0 10*6/uL [facility] WBC (Bld) [#/Vol] 8.9 10*3/uL 3.6 - 10.7 10*3/uL [facility] COMPREHENSIVE METABOLIC PANE Lino 01-24-2025 Albumin [Mass/Vol] 2.9 g/dL Low 3.4-4.8 [facility] Comment on above: Performed By: #### Joseph PENALOZA, LAB17, [id number] ####In House Cra: CHELSIE ISAACS ([id number])[facility])[address] [place] [address] ALP [Catalytic activity/Vol] 69 U/L Normal 40-150 [facility] Comment on above: Performed By: #### Joseph PENALOZA, LAB17, [id number] ####In House Cra: CHELSIE ISAACS ([id number])[facility] ([facility])[address] [place] [address] ALT [Catalytic activity/Vol] 31 U/L High <30 [facility] Comment on above: Performed By: #### Joseph PENALOZA, LAB17, [id number] ####In House Cra: CHELSIE ISAACS ([id number])[facility] ([facility])[address] [place] [address] Anion gap [Moles/Vol] 8 mmol/L Normal 3-13 [facility] Comment on above: Performed By: #### L AB103, LAB17, [id number] ####In House Cra: CHELSIE ISAACS ([id number])[facility])[address] [place] [address] AST [Catalytic activity/Vol] 29 U/L Normal <34 [facility] Comment on above: Performed By: #### Joseph ABSharon, LAB17, [id number] ####In House Cra: CHELSIE ISAACS ([id number])[facility] ([facility])[address] [place] [address] Bilirubin [Mass/Vol] 0.6 mg/dL Normal <1.2 [facility] Comment on above: Performed By: #### Joseph PENALOZA, LAB17, [id number] ####In House Cra: CHELSIE ISAACS ([id number])[facility])[address] [place] [address] Calcium [Mass/Vol] 8.5 mg/dL Low 8.8-10.0 [facility] Comment on above: Performed By: #### Joseph PENALOZA, LAB17, [id number] ####In House Cra: CHELSIE ISAACS ([id number])[facility] ([facility])[address] [place] [address] Chloride [Moles/Vol] 110 mmol/L High 98-107 [facility] Comment on above: Performed By: #### Joseph PENALOZA, LAB17, [id number] ####In House Cra: CHELSIE ISAACS ([id number])[facility] ([facility])[address] [place] [address] CO2 [Moles/Vol] 22 mmol/L Low 23-31 [facility] Comment on above: Performed By: #### Joseph PENALOZA, LAB17, [id number] ####In House Cra: CHELSIE ISAACS ([id number])[facility])[address] [place] [address] Creatinine [Mass/Vol] 0.78 mg/dL Normal 0.57-1.11 [facility] Comment on above: Performed By: #### L AB103, LAB17, [id number] ####In House Cra: CHELSIE ISAACS ([id number])[facility])[address] [place] [address] [place] GLOMERULAR FILTRATION RATE ML/MIN/1.73 SQ M.PREDICTED 77.9 mL/min/1.73m*2 Normal >60.0 [facility] Comment on above: Result Comment: Calc ulation based on the Chronic Kidney Disease Epidemiology Collaboration (CKD-EPI) equation refit without adjustment for race Performed By: #### L AB103, LAB17, [id number] ####In House Cra: CHELSIE ISAACS ([id number])[address] Glucose [Mass/Vol] 98 mg/dL Normal 82-115 [facility] Comment on above: Performed By: #### L AB103, LAB17, [id number] ####In House Cra: CHELSIE ISAACS ([id number])[address] Potassium [Moles/Vol] 3.2 mmol/L Low 3.5-5.1 [facility] Comment on above: Result Comment: [facility] potassium values may be up to 0.5 mmol/L lower than serum values. Performed By: #### L AB103, LAB17, [id number] ####In House Cra: CHELSIE ISAACS ([id number])[address] Protein [Mass/Vol] 6.0 g/dL Low 6.4-8.3 [facility] Comment on above: Performed By: #### L AB103, LAB17, QEH393 ####In House Cra: CHELSIE ISAACS ([id number])[address] Sodium [Moles/Vol] 140 mmol/L Normal 136-145 [facility] Comment on above: Performed By: #### L AB103, LAB17, [id number] ####In House Cra: CHELSIE ISAACS ([id number])[address] [place] [address] [place] Urea nitrogen [Mass/Vol] 19 mg/dL Normal 9-23 [facility] Comment on above: Performed By: #### L AB103, LAB17, [id number] ####In House Cra: CHELSIE ISAACS ([id number])[facility] [place] [address] Comprehensive metabolic 1998 panelon 01-24-2025 Albumin [Mass/Vol] 2.9 g/dL Low 3.4 - 4.8 g/dL [facility] ALP [Catalytic activity/Vol] 69 U/L 40 - 150 U/L [facility] ALT [Catalytic activity/Vol] 31 U/L High NINF - 30 U/L [facility] Anion gap [Moles/Vol] 8 mmol/L 3 - 13 mmol/L [facility] AST [Catalytic activity/Vol] 29 U/L NINF - 34 U/L [facility] Bilirubin [Mass/Vol] 0.6 mg/dL NINF - 1.2 mg/dL [facility] Calcium [Mass/Vol] 8.5 mg/dL Low 8.8 - 10. 0 mg/dL [facility] Chloride [Moles/Vol] 110 mmol/L High 98 - 10 7 mmol/L [facility] CO2 [Moles/Vol] 22 mmol/L Low 23 - 31 mmol/L [facility] Creatinine [Mass/Vol] 0.78 mg/dL 0.57 - 1.11 mg/dL [facility] GFR/1.73 sq M.predicted (S/P/Bld) [Vol rate/Area] 77.9 mL/min - PINF [facility] Glucose [Mass/Vol] 98 mg/dL 82 - 115 mg/dL [facility] Interpretation and review of laboratory results Abnormal [facility] Potassium [Moles/Vol] 3.2 mmol/L Low 3.5 - 5.1 mmol/L [facility] Protein [Mass/Vol] 6 g/dL Low 6.4 - 8.3 g/dL [facility] Sodium [Moles/Vol] 140 mmol/L 136 - 145 mmol/L [facility] Urea nitrogen [Mass/Vol] 19 mg/dL 9 - 23 mg/d L [facility] Laboratory - Chemistry and C hemistry - challengeon 01-24-2025 Magnesium [Mass/Vol] 1.7 mg/dL 1.6 - 2 .6 mg/dL [facility] MAGNESIUMon 01-24-2025 Magnesium [Mass/Vol] 1.7 mg/dL Normal 1.6-2.6 [facility] Comment on above: Result Comment: SHARA Hand COMMENTS:Higher values can be expected in females during menses. Performed By: #### L AB103, LAB17, [id number] ####In House Cra: CHELSIE ISAACS ([id number])[facility] ([facility])[address] [place] [address] Magnesium [Mass/Vol]on 01-24 Interpretation and review of laboratory results Normal [facility] No Panel Informationon 01-24 [facility] PHOSPHORUSon 01-24-2025 Phosphate [Mass/Vol] 3.9 mg/dL Normal 2.3-4.7 [facility] Comment on above: Performed By: #### L AB103, LAB17, [id number] ####In House Cra: CHELSIE ISAACS ([id number])[facility] ([facility])[address] [place] [address] [place] Phosphate [Moles/Vol]on 01-11 Interpretation and review of laboratory results Normal [facility] Phosphate [Mass/Vol] 3.9 mg/dL 2.3 - 4 .7 mg/dL [facility] Progress Noteon 01-24-2025 Progress Note Normal [facility] 30on 01-23-2025 30 Normal [facility] 30 Normal [facility] [id number] 01-23-2025 [id number] Normal [facility] CBC (HEMOGRAM)on 01-23-2025 Erythrocyte distribution width (RBC) [Ratio] 17.0 % High 11.5-15.0 [facility] Comment on above: Performed By: #### L AB294 ####In House Cra: CHELSIE ISAACS ([id number])[facility] ([facility])[address] [place] [address] Hematocrit (Bld) [Volume fraction] 26.4 % Low 35.0-47.0 [facility] Comment on above: Performed By: #### L AB294 ####In House Cra: CHELSIE ISAACS ([id number])[facility] ([facility])[address] [place] [address] Hemoglobin (Bld) [Mass/Vol] 8.5 g/dL Low 11.7-16.0 [facility] Comment on above: Performed By: #### L AB294 ####In House Cra: CHELSIE ISAACS ([id number])[facility] ([facility])[address] [place] [address] MCH (RBC) [Entitic mass] 29.9 pg Normal 26.0-34.0 [facility] Comment on above: Performed By: #### L AB294 ####In House Cra: CHELSIE ISAACS ([id number])[facility])[address] [place] [address] MCHC 32.2 % Normal 30.5-36.0 [facility] Comment on above: Performed By: #### L AB294 ####In House Cra: CHELSIE ISAACS ([id number])[facility] ([facility])[address] [place] [address] MCV (RBC) [Entitic vol] 93.0 fL Normal 77.0-99.0 [facility] Comment on above: Performed By: #### L AB294 ####In House Cra: CHELSIE ISAACS ([id number])[facility] ([facility])[address] [place] [address] Platelet mean volume (Bld) [Entitic vol] 9.8 fL Normal 9.0-12.7 [facility] Comment on above: Performed By: #### L AB294 ####In House Cra: CHELSIE ISAACS ([id number])[facility])[address] [place] [address] Platelets (Bld) [#/Vol] 312 10*3/uL Normal 140-440 [facility] Comment on above: Performed By: #### L AB294 ####In House Cra: CHELSIE ISAACS ([id number])[facility] ([facility])[address] [place] [address] RBC (Bld) [#/Vol] 2.84 10*6/uL Low 3.80-5.20 [facility] Comment on above: Performed By: #### L AB294 ####In House Cra: CHELSIE ISAACS ([id number])[facility] ([facility])[address] [place] [address] WBC (Bld) [#/Vol] 10.4 10*3/uL Normal 3.6-10.7 [facility] Comment on above: Performed By: #### L AB294 ####In House Cra: CHELSIE ISAACS ([id number])[facility] ([facility])[address] [place] [address] CBC panel Auto (Bld)on 01-23 Erythrocyte distribution width (RBC) [Ratio] 17 % High 11.5 - 15.0 % [facility] Hematocrit (Bld) [Volume fraction] 26.4 % Low 35.0 - 47.0 % [facility] Hemoglobin (Bld) [Mass/Vol] 8.5 g/dL Low 11.7 - 16.0 g/dL [facility] Interpretation and review of laboratory results Abnormal [facility] MCH (RBC) [Entitic mass] 29.9 pg 26. 0 - 34.0 pg [facility] MCHC (RBC) [Mass/Vol] 32.2 % 30.5 - 36.0 % [facility] MCV (RBC) [Entitic vol] 93 fL 77.0 - 99.0 fL [facility] Platelet mean volume (Bld) [Entitic vol] 9.8 fL 9.0 - 12.7 fL [facility] Platelets (Bld) [#/Vol] 312 10*3/uL 140 - 440 10*3/uL [facility] RBC (Bld) [#/Vol] 2.84 10*6/uL Low 3.80 - 5.2 0 10*6/uL [facility] WBC (Bld) [#/Vol] 10.4 10*3/uL 3.6 - 10.7 10*3/uL [facility] COMPREHENSIVE METABOLIC PANE Lino 01-23-2025 Albumin [Mass/Vol] 3.1 g/dL Low 3.4-4.8 [facility] Comment on above: Performed By: #### Joseph HERNANDEZ, LAB17, [id number] ####In House Cra: CHELSIE ISAACS ([id number])[facility] ([facility])[address] [place] [address] ALP [Catalytic activity/Vol] 76 U/L Normal 40-150 [facility] Comment on above: Performed By: #### Joseph HERNANDEZ, LAB17, [id number] ####In House Cra: CHELSIE ISAACS ([id number])[facility] ([facility])[address] [place] [address] ALT [Catalytic activity/Vol] 35 U/L High <30 [facility] Comment on above: Performed By: #### Joseph HERNANDEZ, LAB17, [id number] ####In House Cra: CHELSIE ISAACS ([id number])[facility] ([facility])[address] [place] [address] Anion gap [Moles/Vol] 10 mmol/L Normal 3-13 [facility] Comment on above: Performed By: #### Joseph HERNANDEZ, LAB17, [id number] ####In House Cra: CHELSIE ISAACS ([id number])[facility] ([facility])[address] [place] [address] AST [Catalytic activity/Vol] 34 U/L High <34 [facility] Comment on above: Performed By: #### Joseph HERNANDEZ, LAB17, [id number] ####In House Cra: CHELSIE ISAACS ([id number])[facility] ([facility])[address] [place] [address] Bilirubin [Mass/Vol] 0.8 mg/dL Normal <1.2 [facility] Comment on above: Performed By: #### Joseph ABChelsea, LAB17, [id number] ####In House Cra: CHELSIE ISAACS ([id number])[facility] ([facility])[address] [place] [address] Calcium [Mass/Vol] 8.6 mg/dL Low 8.8-10.0 [facility] Comment on above: Performed By: #### L AB113, LAB17, [id number] ####In House Cra: CHELSIE ISAACS ([id number])[facility])[address] [place] [address] Chloride [Moles/Vol] 109 mmol/L High 98-107 [facility] Comment on above: Performed By: #### L AB113, LAB17, [id number] ####In House Cra: CHELSIE ISAACS ([id number])[facility])[address] [place] [address] CO2 [Moles/Vol] 22 mmol/L Low 23-31 [facility] Comment on above: Performed By: #### Joseph AB113, LAB17, [id number] ####In House Cra: CHELSIE ISAACS ([id number])[facility])[address] [place] [address] Creatinine [Mass/Vol] 0.85 mg/dL Normal 0.57-1.11 [facility] Comment on above: Performed By: #### Joseph AB113, LAB17, [id number] ####In House Cra: CHELSIE ISAACS ([phone])[facility])[address] [place] [address] GLOMERULAR FILTRATION RATE ML/MIN/1.73 SQ M.PREDICTED 70.2 mL/min/1.73m*2 Normal >60.0 [facility] Comment on above: Result Comment: Calc ulation based on the Chronic Kidney Disease Epidemiology Collaboration (CKD-EPI) equation refit without adjustment for race Performed By: #### L AB113, LAB17, [id number] ####In House Cra: CHELSIE ISAACS ([phone])[facility] ([facility])[address] [place] [address] [place] Glucose [Mass/Vol] 104 mg/dL Normal 82-115 [facility] Comment on above: Performed By: #### L AB113, LAB17, [id number] ####In House Cra: CHELSIE ISAACS ([phone])[facility])[address] [place] [address] [place] Potassium [Moles/Vol] 3.5 mmol/L Normal 3.5-5.1 [facility] Comment on above: Result Comment: [facility] potassium values may be up to 0.5 mmol/L lower than serum values. Performed By: #### L AB113, LAB17, [id number] ####In House Cra: CHELSIE ISAACS ([phone])[facility])[address] [place] [address] Protein [Mass/Vol] 6.4 g/dL Normal 6.4-8.3 [facility] Comment on above: Performed By: #### L AB113, LAB17, [id number] ####In House Cra: CHELSIE ISAACS ([id number])[facility])[address] [place] [address] Sodium [Moles/Vol] 141 mmol/L Normal 136-145 [facility] Comment on above: Performed By: #### L AB113, LAB17, [id number] ####In House Cra: CHELSIE ISAACS ([phone])[facility] ([facility])[address] [place] [address] Urea nitrogen [Mass/Vol] 17 mg/dL Normal 9-23 [facility] Comment on above: Performed By: #### L AB113, LAB17, [id number] ####In House Cra: CHELSIE ISAACS ([phone])[address] Comprehensive metabolic 1998 panelon 01-23-2025 Albumin [Mass/Vol] 3.1 g/dL Low 3.4 - 4.8 g/dL [facility] ALP [Catalytic activity/Vol] 76 U/L 40 - 150 U/L [facility] ALT [Catalytic activity/Vol] 35 U/L High NINF - 30 U/L [facility] Anion gap [Moles/Vol] 10 mmol/L 3 - 13 mmol/L [facility] AST [Catalytic activity/Vol] 34 U/L High NINF - 34 U/L [facility] Bilirubin [Mass/Vol] 0.8 mg/dL NINF - 1.2 mg/dL [facility] Calcium [Mass/Vol] 8.6 mg/dL Low 8.8 - 10. 0 mg/dL [facility] Chloride [Moles/Vol] 109 mmol/L High 98 - 10 7 mmol/L [facility] CO2 [Moles/Vol] 22 mmol/L Low 23 - 31 mmol/L [facility] Creatinine [Mass/Vol] 0.85 mg/dL 0.57 - 1.11 mg/dL [facility] GFR/1.73 sq M.predicted (S/P/Bld) [Vol rate/Area] 70.2 mL/min - PINF [facility] Glucose [Mass/Vol] 104 mg/dL 82 - 115 mg/dL [facility] Interpretation and review of laboratory results Abnormal [facility] Potassium [Moles/Vol] 3.5 mmol/L 3.5 - 5.1 mmol/L [facility] Protein [Mass/Vol] 6.4 g/dL 6.4 - 8.3 g/dL [facility] Sodium [Moles/Vol] 141 mmol/L 136 - 145 mmol/L [facility] Urea nitrogen [Mass/Vol] 17 mg/dL 9 - 23 mg/d L [facility] Consulton 01-23-2025 Consult Normal [facility] Laboratory - Chemistry and C hemistry - challengeon 01-23-2025 Magnesium [Mass/Vol] 1.7 mg/dL 1.6 - 2 .6 mg/dL [facility] MAGNESIUMon 01-23-2025 Magnesium [Mass/Vol] 1.7 mg/dL Normal 1.6-2.6 [facility] Comment on above: Result Comment: SHARA Hand COMMENTS:Higher values can be expected in females during menses. Performed By: #### L AB113, LAB17, [id number] ####In House Cra: CHELSIE ISAACS ([phone])[facility] ([address] Magnesium [Mass/Vol]on 01-23 [facility] No Panel Informationon 01-23 [facility] Interpretation and review of laboratory results Normal [facility] PHOSPHORUSon 01-23-2025 Phosphate [Mass/Vol] 3.3 mg/dL Normal 2.3-4.7 [facility] Comment on above: Performed By: #### L AB113, LAB17, [id number] ####In House Cra: CHELSIE ISAACS ([id number])[facility] ([facility])[address] [place] [address] [place] Phosphate [Moles/Vol]on 01-11 Phosphate [Mass/Vol] 3.3 mg/dL 2.3 - 4 .7 mg/dL [facility] Progress Noteon 01-23-2025 Progress Note [facility] Progress [facility] Progress Note Normal [facility] US Heart Transesophagealon 0 01-23-2025 CV CPACS HEMO US Heart TransesophagealOrde red By: Paxton Sousa on 01-23-2025 [facility] Work Phone: XR CHEST 1 VIEWon 01-23-2025 XR CHEST 1 VIEW Normal [facility] XR Chest Single viewon 01-23 [facility] Radiology Study observation (narrative) [facility] [id number] 01-22-2025 [id number] Requested [facility] insurance authorization. Normal [facility] [id number] Normal [facility] CBC (HEMOGRAM)on 01-22-2025 Erythrocyte distribution width (RBC) [Ratio] 16.8 % High 11.5-15.0 [facility] Comment on above: Performed By: #### L [id number] ####In House Cra: CHELSIE ISAACS ([phone])[facility] ([facility])[address] [place] [address] Hematocrit (Bld) [Volume fraction] 28.0 % Low 35.0-47.0 [facility] Comment on above: Performed By: #### L AB294 ####In House Cra: CHELSIE ISAACS ([id number])[facility] ([facility])[address] [place] [address] Hemoglobin (Bld) [Mass/Vol] 8.9 g/dL Low 11.7-16.0 [facility] Comment on above: Performed By: #### L AB294 ####In House Cra: CHELSIE ISAACS ([id number])[facility] ([facility])[address] [place] [address] MCH (RBC) [Entitic mass] 29.8 pg Normal 26.0-34.0 [facility] Comment on above: Performed By: #### L AB294 ####In House Cra: CHELSIE ISAACS ([id number])[facility] ([facility])[address] [place] [address] MCHC 31.8 % Normal 30.5-36.0 [facility] Comment on above: Performed By: #### L AB294 ####In House Cra: CHELSIE ISAACS ([phone])[facility])[address] [place] [address] MCV (RBC) [Entitic vol] 93.6 fL Normal 77.0-99.0 [facility] Comment on above: Performed By: #### L AB294 ####In House Cra: CHELSIE ISAACS ([id number])[facility] ([facility])[address] [place] [address] Platelet mean volume (Bld) [Entitic vol] 9.9 fL Normal 9.0-12.7 [facility] Comment on above: Performed By: #### L AB294 ####In House Cra: CHELSIE ISAACS ([phone])[facility] ([facility])[address] [place] [address] Platelets (Bld) [#/Vol] 308 10*3/uL Normal 140-440 [facility] Comment on above: Performed By: #### L AB294 ####In House Cra: CHELSIE ISAACS ([id number])[facility] ([facility])[address] [place] [address] RBC (Bld) [#/Vol] 2.99 10*6/uL Low 3.80-5.20 [facility] Comment on above: Performed By: #### L AB294 ####In House Cra: CHELSIE ISAACS ([id number])[facility])[address] [place] [address] WBC (Bld) [#/Vol] 9.7 10*3/uL Normal 3.6-10.7 [facility] Comment on above: Performed By: #### L AB294 ####In House Cra: CHELSIE ISAACS ([id number])[facility] ([facility])[address] [place] [address] CBC panel Auto (Bld)on 01-22 Erythrocyte distribution width (RBC) [Ratio] 16.8 % High 11.5 - 15.0 % [facility] Hematocrit (Bld) [Volume fraction] 28 % Low 35.0 - 47.0 % [facility] Hemoglobin (Bld) [Mass/Vol] 8.9 g/dL Low 11.7 - 16.0 g/dL [facility] Interpretation and review of laboratory results Abnormal [facility] MCH (RBC) [Entitic mass] 29.8 pg 26. 0 - 34.0 pg [facility] MCHC (RBC) [Mass/Vol] 31.8 % 30.5 - 36.0 % [facility] MCV (RBC) [Entitic vol] 93.6 fL 77.0 - 99.0 fL [facility] Platelet mean volume (Bld) [Entitic vol] 9.9 fL 9.0 - 12.7 fL [facility] Platelets (Bld) [#/Vol] 308 10*3/uL 140 - 440 10*3/uL [facility] RBC (Bld) [#/Vol] 2.99 10*6/uL Low 3.80 - 5.2 0 10*6/uL [facility] WBC (Bld) [#/Vol] 9.7 10*3/uL 3.6 - 10.7 10*3/uL [facility] COMPREHENSIVE METABOLIC PANE Lino 01-22-2025 Albumin [Mass/Vol] 3.1 g/dL Low 3.4-4.8 [facility] Comment on above: Performed By: #### L AB113, [id number], LAB17 ####In House Cra: CHELSIE ISAACS ([id number])[facility])[address] [place] [address] ALP [Catalytic activity/Vol] 83 U/L Normal 40-150 [facility] Comment on above: Performed By: #### L AB113, [id number], LAB17 ####In House Cra: CHELSIE ISAACS ([phone])[facility] ([facility])[address] [place] [address] ALT [Catalytic activity/Vol] 38 U/L High <30 [facility] Comment on above: Performed By: #### L AB113, [id number], LAB17 ####In House Cra: CHELSIE ISAACS ([id number])[facility] ([facility])[address] [place] [address] Anion gap [Moles/Vol] 9 mmol/L Normal 3-13 [facility] Comment on above: Performed By: #### Joseph AB113, [id number], LAB17 ####In House Cra: CHELSIE ISAACS ([phone])[facility] ([facility])[address] [place] [address] AST [Catalytic activity/Vol] 31 U/L Normal <34 [facility] Comment on above: Performed By: #### Joseph ABChelsea, [id number], LAB17 ####In House Cra: CHELSIE ISAACS ([phone])[facility] ([facility])[address] [place] [address] Bilirubin [Mass/Vol] 0.8 mg/dL Normal <1.2 [facility] Comment on above: Performed By: #### Joseph ABChelsea, [id number], LAB17 ####In House Cra: CHELSIE ISAACS ([id number])[facility] ([facility])[address] [place] [address] Calcium [Mass/Vol] 8.5 mg/dL Low 8.8-10.0 [facility] Comment on above: Performed By: #### L AB113, [id number], LAB17 ####In House Cra: CHELSIE ISAACS ([id number])[facility] ([facility])[address] [place] [address] Chloride [Moles/Vol] 112 mmol/L High 98-107 [facility] Comment on above: Performed By: #### L AB113, [id number], LAB17 ####In House Cra: CHELSIE ISAACS ([id number])[facility])[address] [place] [address] CO2 [Moles/Vol] 20 mmol/L Low 23-31 [facility] Comment on above: Performed By: #### L AB113, [id number], LAB17 ####In House Cra: CHELSIE ISAACS ([id number])[facility])[address] [place] [address] Creatinine [Mass/Vol] 0.70 mg/dL Normal 0.57-1.11 [facility] Comment on above: Performed By: #### Joseph ABChelsea, [id number], LAB17 ####In House Cra: CHELSIE ISAACS ([id number])[facility])[address] [place] [address] GLOMERULAR FILTRATION RATE ML/MIN/1.73 SQ M.PREDICTED 88.7 mL/min/1.73m*2 Normal >60.0 [facility] Comment on above: Result Comment: Calc ulation based on the Chronic Kidney Disease Epidemiology Collaboration (CKD-EPI) equation refit without adjustment for race Performed By: #### Joseph ABChelsea, [id number], LAB17 ####In House Cra: CHELSIE ISAACS ([id number])[facility])[address] [place] [address] Glucose [Mass/Vol] 106 mg/dL Normal 82-115 [facility] Comment on above: Performed By: #### Joseph AB113, [id number], LAB17 ####In House Cra: CHELSIE ISAACS ([id number])[facility])[address] [place] [address] Potassium [Moles/Vol] 3.2 mmol/L Low 3.5-5.1 [facility] Comment on above: Result Comment: [facility] potassium values may be up to 0.5 mmol/L lower than serum values. Performed By: #### L AB113, [id number], LAB17 ####In House Cra: CHELSIE ISAACS ([id number])[facility] ([facility])[address] [place] [address] Protein [Mass/Vol] 6.3 g/dL Low 6.4-8.3 [facility] Comment on above: Performed By: #### L AB113, [id number], LAB17 ####In House Cra: CHELSIE ISAACS ([id number])[facility] ([facility])[address] [place] [address] Sodium [Moles/Vol] 141 mmol/L Normal 136-145 [facility] Comment on above: Performed By: #### L AB113, [id number], LAB17 ####In House Cra: CHELSIE ISAACS ([id number])[facility] ([facility])[address] [place] [address] Urea nitrogen [Mass/Vol] 18 mg/dL Normal 9-23 [facility] Comment on above: Performed By: #### L AB113, [id number], LAB17 ####In House Cra: CHELSIE ISAACS ([id number])[facility])[address] [place] [address] Comprehensive metabolic 1998 panelon 01-22-2025 Albumin [Mass/Vol] 3.1 g/dL Low 3.4 - 4.8 g/dL [facility] ALP [Catalytic activity/Vol] 83 U/L 40 - 150 U/L [facility] ALT [Catalytic activity/Vol] 38 U/L High NINF - 30 U/L [facility] Anion gap [Moles/Vol] 9 mmol/L 3 - 13 mmol/L [facility] AST [Catalytic activity/Vol] 31 U/L NINF - 34 U/L [facility] Bilirubin [Mass/Vol] 0.8 mg/dL NINF - 1.2 mg/dL [facility] Calcium [Mass/Vol] 8.5 mg/dL Low 8.8 - 10. 0 mg/dL [facility] Chloride [Moles/Vol] 112 mmol/L High 98 - 10 7 mmol/L [facility] CO2 [Moles/Vol] 20 mmol/L Low 23 - 31 mmol/L [facility] Creatinine [Mass/Vol] 0.7 mg/dL 0.57 - 1.11 mg/dL [facility] GFR/1.73 sq M.predicted (S/P/Bld) [Vol rate/Area] 88.7 mL/min - PINF [facility] Glucose [Mass/Vol] 106 mg/dL 82 - 115 mg/dL [facility] Interpretation and review of laboratory results Abnormal [facility] Potassium [Moles/Vol] 3.2 mmol/L Low 3.5 - 5.1 mmol/L [facility] Protein [Mass/Vol] 6.3 g/dL Low 6.4 - 8.3 g/dL [facility] Sodium [Moles/Vol] 141 mmol/L 136 - 145 mmol/L [facility] Urea nitrogen [Mass/Vol] 18 mg/dL 9 - 23 mg/d L [facility] Laboratory - Chemistry and C hemistry - challengeon 01-22-2025 Potassium [Moles/Vol] 3.8 mmol/L 3.5 - 5.1 mmol/L [facility] Potassium [Moles/Vol] 3.3 mmol/L Low 3.5 - 5.1 mmol/L [facility] Magnesium [Mass/Vol] 1.8 mg/dL 1.6 - 2 .6 mg/dL [facility] MAGNESIUMon 01-22-2025 Magnesium [Mass/Vol] 1.8 mg/dL Normal 1.6-2.6 [facility] Comment on above: Result Comment: SHARA Hand COMMENTS:Higher values can be expected in females during menses. Performed By: #### L AB113, [id number], LAB17 ####In House Cra: CHELSIE ISAACS ([id number])[address] Magnesium [Mass/Vol]on 01-22 [facility] No Panel Informationon 01-22 [facility] Interpretation and review of laboratory results Normal [facility] PHOSPHORUSon 01-22-2025 Phosphate [Mass/Vol] 3.4 mg/dL Normal 2.3-4.7 [facility] Comment on above: Performed By: #### L AB113, [id number], LAB17 ####In House Cra: CHELSIE ISAACS ([id number])[facility] ([facility])[address] [place], [place] [id number] [facility] POTASSIUMon 01-22-2025 Potassium [Moles/Vol] 3.8 mmol/L Normal 3.5-5.1 [facility] Comment on above: Result Comment: Plas in potassium values may be up to 0.5 mmol/L lower than serum values. Performed By: #### L AB114 ####In House Cra: CHELSIE ISAACS ([id number])[facility])[address] [place] [address] Potassium [Moles/Vol] 3.3 mmol/L Low 3.5-5.1 [facility] Comment on above: Result Comment: Plas ma potassium values may be up to 0.5 mmol/L lower than serum values. Performed By: #### L AB114 ####In House Cra: CHELSIE ISAACS ([phone])[facility])[address] [place] [address] Phosphate [Moles/Vol]on 01-11 Phosphate [Mass/Vol] 3.4 mg/dL 2.3 - 4 .7 mg/dL [facility] Potassium [Moles/Vol]on 01-11 Interpretation and review of laboratory results Normal [facility] Interpretation and review of laboratory results Abnormal [facility] Progress Noteon 01-22-2025 Progress Note Normal [facility] Progress Note Normal [facility] 30on 01-21-2025 30 Normal [facility] 30 Normal [facility] [id number] 01-21-2025 [id number] Normal [facility] [id number] Normal [facility] CBC (HEMOGRAM)on 01-21-2025 Erythrocyte distribution width (RBC) [Ratio] 16.3 % High 11.5-15.0 [facility] Comment on above: Performed By: #### L AB294 ####In House Cra: CHELSIE ISAACS ([id number])[facility])[address] [place] [address] Hematocrit (Bld) [Volume fraction] 26.2 % Low 35.0-47.0 [facility] Comment on above: Performed By: #### L AB294 ####In House Cra: CHELSIE [id number])[facility] ([facility])[address] [place] [address] Hemoglobin (Bld) [Mass/Vol] 8.3 g/dL Low 11.7-16.0 [facility] Comment on above: Performed By: #### L AB294 ####In House Cra: CHELSIE ISAACS ([id number])[facility])[address] [place] [address] MCH (RBC) [Entitic mass] 29.7 pg Normal 26.0-34.0 [facility] Comment on above: Performed By: #### L AB294 ####In House Cra: CHELSIE ISAACS ([id number])[facility])[address] [place] [address] MCHC 31.7 % Normal 30.5-36.0 [facility] Comment on above: Performed By: #### L AB294 ####In House Cra: CHELSIE ISAACS ([id number])[facility] ([facility])[address] [place] [address] MCV (RBC) [Entitic vol] 93.9 fL Normal 77.0-99.0 [facility] Comment on above: Performed By: #### L AB294 ####In House Cra: CHELSIE ISAACS ([id number])[facility])[address] [place] [address] Platelet mean volume (Bld) [Entitic vol] 10.1 fL Normal 9.0-12.7 [facility] Comment on above: Performed By: #### L AB294 ####In House Cra: CHELSIE ISAACS ([id number])[facility] ([facility])[address] [place] [address] Platelets (Bld) [#/Vol] 267 10*3/uL Normal 140-440 [facility] Comment on above: Performed By: #### L AB294 ####In House Cra: CHELSIE ISAACS ([id number])[facility])[address] [place] [address] RBC (Bld) [#/Vol] 2.79 10*6/uL Low 3.80-5.20 [facility] Comment on above: Performed By: #### L AB294 ####In House Cra: CHELSIE ISAACS ([id number])[facility] ([facility])[address] [place] [address] WBC (Bld) [#/Vol] 7.2 10*3/uL Normal 3.6-10.7 [facility] Comment on above: Performed By: #### L AB294 ####In House Cra: CHELSIE ISAACS ([id number])[facility] ([facility])[address] [place] [address] CBC panel Auto (Bld)on 01-21 Erythrocyte distribution width (RBC) [Ratio] 16.3 % High 11.5 - 15.0 % [facility] Hematocrit (Bld) [Volume fraction] 26.2 % Low 35.0 - 47.0 % [facility] Hemoglobin (Bld) [Mass/Vol] 8.3 g/dL Low 11.7 - 16.0 g/dL [facility] Interpretation and review of laboratory results Abnormal [facility] MCH (RBC) [Entitic mass] 29.7 pg 26. 0 - 34.0 pg [facility] MCHC (RBC) [Mass/Vol] 31.7 % 30.5 - 36.0 % [facility] MCV (RBC) [Entitic vol] 93.9 fL 77.0 - 99.0 fL [facility] Platelet mean volume (Bld) [Entitic vol] 10.1 fL 9.0 - 12.7 fL [facility] Platelets (Bld) [#/Vol] 267 10*3/uL 140 - 440 10*3/uL [facility] RBC (Bld) [#/Vol] 2.79 10*6/uL Low 3.80 - 5.2 0 10*6/uL [facility] WBC (Bld) [#/Vol] 7.2 10*3/uL 3.6 - 10.7 10*3/uL [facility] COMPREHENSIVE METABOLIC PANE Lino 01-21-2025 Albumin [Mass/Vol] 3.1 g/dL Low 3.4-4.8 [facility] Comment on above: Performed By: #### Joseph AB17, [id number], [id number] ####In House Cra: CHELSIE ISAACS ([phone])[facility] ([facility])[address] [place] [address] ALP [Catalytic activity/Vol] 84 U/L Normal 40-150 [facility] Comment on above: Performed By: #### Joseph AB17, [id number], [id number] ####In House Cra: CHELSIE ISAACS ([id number])[facility] ([facility])[address] [place] [address] ALT [Catalytic activity/Vol] 41 U/L High <30 [facility] Comment on above: Performed By: #### Joseph AB17, [id number], [id number] ####In House Cra: CHELSIE ISAACS ([phone])[facility] ([facility])[address] [place] [address] Anion gap [Moles/Vol] 9 mmol/L Normal 3-13 [facility] Comment on above: Performed By: #### Joseph AB17, [id number], [id number] ####In House Cra: CHELSIE ISAACS ([id number])[facility] ([facility])[address] [place] [address] AST [Catalytic activity/Vol] 31 U/L Normal <34 [facility] Comment on above: Performed By: #### Joseph AB17, [id number], [id number] ####In House Cra: CHELSIE ISAACS ([id number])[facility] ([facility])[address] [place] [address] Bilirubin [Mass/Vol] 0.7 mg/dL Normal <1.2 [facility] Comment on above: Performed By: #### Joseph AB17, [id number], [id number] ####In House Cra: CHELSIE ISAACS ([phone])[facility])[address] [place] [address] Calcium [Mass/Vol] 8.5 mg/dL Low 8.8-10.0 [facility] Comment on above: Performed By: #### L AB17, YYP897, [id number] ####In House Cra: CHELSIE ISAACS ([phone])[facility] [place] [address] [place] Chloride [Moles/Vol] 112 mmol/L High 98-107 [facility] Comment on above: Performed By: #### Joseph AB17, [id number], [id number] ####In House Cra: CHELSIE ISAACS ([id number])[facility] ([facility])[address] [place] [address] [place] CO2 [Moles/Vol] 22 mmol/L Low 23-31 [facility] Comment on above: Performed By: #### Joseph ALBA, [id number], [id number] ####In House Cra: CHELSIE ISAACS ([id number])[facility])[address] [place] [address] Creatinine [Mass/Vol] 0.79 mg/dL Normal 0.57-1.11 [facility] Comment on above: Performed By: #### Joseph ALBA, [id number], IFZ136 ####In House Cra: CHELSIE ISAACS ([id number])[facility] ([facility])[address] [place] [address] [place] GLOMERULAR FILTRATION RATE ML/MIN/1.73 SQ M.PREDICTED 76.7 mL/min/1.73m*2 Normal >60.0 [facility] Comment on above: Result Comment: Calc ulation based on the Chronic Kidney Disease Epidemiology Collaboration (CKD-EPI) equation refit without adjustment for race Performed By: #### Joseph ALBA, [id number], [id number] ####In House Cra: CHESLIE ISAACS ([phone])[facility] ([facility])[address] [place] [address] [place] Glucose [Mass/Vol] 96 mg/dL Normal 82-115 [facility] Comment on above: Performed By: #### Joseph [id number], [id number], [id number] ####In House Cra: CHELSIE ISAACS ([phone])[facility] ([facility])[address] [place] [address] [place] Potassium [Moles/Vol] 3.6 mmol/L Normal 3.5-5.1 [facility] Comment on above: Result Comment: [facility] potassium values may be up to 0.5 mmol/L lower than serum values. Performed By: #### L AB17, [id number], [id number] ####In House Cra: CHELSIE ISAACS ([id number])[facility] ([facility])[address] [place] [address] Protein [Mass/Vol] 6.0 g/dL Low 6.4-8.3 [facility] Comment on above: Performed By: #### L AB17, [id number], [id number] ####In House Cra: CHELSIE ISAACS ([id number])[facility] ([facility])[address] [place] [address] Sodium [Moles/Vol] 143 mmol/L Normal 136-145 [facility] Comment on above: Performed By: #### Joseph AB17, [id number], [id number] ####In House Cra: CHELSIE ISAACS ([phone])[facility] ([facility])[address] [place] [address] Urea nitrogen [Mass/Vol] 21 mg/dL Normal 9-23 [facility] Comment on above: Performed By: #### Joseph AB17, [id number], [id number] ####In House Cra: CHELSIE ISAACS ([id number])[facility])[address] [place] [address] Comprehensive metabolic 1998 panelon 01-21-2025 Albumin [Mass/Vol] 3.1 g/dL Low 3.4 - 4.8 g/dL [facility] ALP [Catalytic activity/Vol] 84 U/L 40 - 150 U/L [facility] ALT [Catalytic activity/Vol] 41 U/L High NINF - 30 U/L [facility] Anion gap [Moles/Vol] 9 mmol/L 3 - 13 mmol/L [facility] AST [Catalytic activity/Vol] 31 U/L NINF - 34 U/L [facility] Bilirubin [Mass/Vol] 0.7 mg/dL NINF - 1.2 mg/dL [facility] Calcium [Mass/Vol] 8.5 mg/dL Low 8.8 - 10. 0 mg/dL [facility] Chloride [Moles/Vol] 112 mmol/L High 98 - 10 7 mmol/L [facility] CO2 [Moles/Vol] 22 mmol/L Low 23 - 31 mmol/L [facility] Creatinine [Mass/Vol] 0.79 mg/dL 0.57 - 1.11 mg/dL [facility] GFR/1.73 sq M.predicted (S/P/Bld) [Vol rate/Area] 76.7 mL/min - PINF [facility] Glucose [Mass/Vol] 96 mg/dL 82 - 115 mg/dL [facility] Interpretation and review of laboratory results Abnormal [facility] Potassium [Moles/Vol] 3.6 mmol/L 3.5 - 5.1 mmol/L [facility] Protein [Mass/Vol] 6 g/dL Low 6.4 - 8.3 g/dL [facility] Sodium [Moles/Vol] 143 mmol/L 136 - 145 mmol/L [facility] Urea nitrogen [Mass/Vol] 21 mg/dL 9 - 23 mg/d L [facility] ECG 12-LEADon 01-21-2025 ECG 12-LEAD IMPRESSION: Sinus rhythm Low voltage, precordial leads Borderline T abnormalities, diffuse leads Prolonged QT interval Electronically Signed On 01-21-2025 19:40:11 EDT by Pedro Lockwood Normal [facility] Laboratory - Chemistry and C hemistry - challengeon 01-21-2025 Magnesium [Mass/Vol] 1.8 mg/dL 1.6 - 2 .6 mg/dL [facility] MAGNESIUMon 01-21-2025 Magnesium [Mass/Vol] 1.8 mg/dL Normal 1.6-2.6 [facility] Comment on above: Result Comment: SHARA Hand COMMENTS:Higher values can be expected in females during menses. Performed By: #### L AB17, [id number], [id number] ####In House Cra: CHELSIE ISAACS ([id number])[facility] ([address] Magnesium [Mass/Vol]on 01-21 [facility] No Panel InformationOrdered By: Pedro Lockwood on 01-21-2025 [place] 107 degrees [facility] [employer] Work Phone: MD Interval 155 ms [facility] [employer] Work Phone: QRS [place] 29 degrees [facility] Work Phone: QRSD Interval [address] [address] Work Phone: QT Interval 423 ms [email or web address] Work Phone: QTC Interval 513 ms [email or web address] Work Phone: T Wave [place] -43 degrees [email or web address] Work Phone: [email or web address] Work Phone: No Panel Informationon 01-21 CV EPIPHANY [facility] [employer] Interpretation and review of laboratory results Normal [facility] PHOSPHORUSon 01-21-2025 Phosphate [Mass/Vol] 3.3 mg/dL Normal 2.3-4.7 [facility] Comment on above: Performed By: #### L AB17, [id number], [id number] ####In House Cra: CHELSIE ISAACS ([phone])[address] Phosphate [Moles/Vol]on 01-11 Phosphate [Mass/Vol] 3.3 mg/dL 2.3 - 4 .7 mg/dL [facility] [employer] Progress Noteon 01-21-2025 Progress Note Normal [facility] Progress Note Normal [facility] Vital signsOrdered By: Pedro Lockwood on 01-21-2025 Heart rate 88 /min bpm [email or web address] Work Phone: XR CHEST 1 VIEWon 01-21-2025 XR CHEST 1 VIEW Normal [facility] XR Chest Single viewon 01-21 [facility] Radiology Study observation (narrative) [facility] XR Chest Single viewOrdered By: Allan Madsen on 01-21-2025 [facility] [employer] 30on 01-20-2025 30 Normal [facility] [id number] 01-20-2025 [id number] Received call from [facility] and confirmed with Chhaya that they can accept patient and that they will start insurance authorization today. Patient updated. Normal [facility] CALCIUM, IONIZEDon CALCIUM IONIZED 4.10 mg/dL Low 4.30-5.20 [facility] Comment on above: Performed By: #### L AB54 ####In House Cra: CHELSIE ISAACS ([id number])[facility] ([facility])[address] [place] [address] PH, IONIZED CALCIUM 7.45 Normal 7.31-7.46 [facility] Comment on above: Performed By: #### L AB54 ####In House Cra: CHELSIE ISAACS ([id number])[facility])[address] [place] [address] CBC (HEMOGRAM)on 01-20-2025 Erythrocyte distribution width (RBC) [Ratio] 16.4 % High 11.5-15.0 [facility] Comment on above: Performed By: #### L AB294 ####In House Cra: CHELSIE ISAACS ([id number])[facility])[address] [place] [address] Hematocrit (Bld) [Volume fraction] 26.9 % Low 35.0-47.0 [facility] Comment on above: Performed By: #### L AB294 ####In House Cra: CHELSIE ISAACS ([id number])[facility])[address] [place] [address] Hemoglobin (Bld) [Mass/Vol] 8.4 g/dL Low 11.7-16.0 [facility] Comment on above: Performed By: #### L AB294 ####In House Cra: CHELSIE ISAACS ([id number])[facility])[address] [place] [address] MCH (RBC) [Entitic mass] 29.4 pg Normal 26.0-34.0 [facility] Comment on above: Performed By: #### L AB294 ####In House Cra: CHELSIE ISAACS ([id number])[facility])[address] [place] [address] MCHC 31.2 % Normal 30.5-36.0 [facility] Comment on above: Performed By: #### L AB294 ####In House Cra: CHELSIE ISAACS ([id number])[facility])[address] [place] [address] MCV (RBC) [Entitic vol] 94.1 fL Normal 77.0-99.0 [facility] Comment on above: Performed By: #### L AB294 ####In House Cra: CHELSIE ISAACS ([id number])[facility] ([facility])[address] [place] [address] Platelet mean volume (Bld) [Entitic vol] 10.2 fL Normal 9.0-12.7 [facility] Comment on above: Performed By: #### L AB294 ####In House Cra: CHELSIE ISAACS ([id number])[facility])[address] [place] [address] Platelets (Bld) [#/Vol] 288 10*3/uL Normal 140-440 [facility] Comment on above: Performed By: #### L AB294 ####In House Cra: CHELSIE ISAACS ([id number])[facility] ([facility])[address] [place] [address] RBC (Bld) [#/Vol] 2.86 10*6/uL Low 3.80-5.20 [facility] Comment on above: Performed By: #### L AB294 ####In House Cra: CHELSIE ISAACS ([id number])[facility] ([facility])[address] [place] [address] WBC (Bld) [#/Vol] 7.9 10*3/uL Normal 3.6-10.7 [facility] Comment on above: Performed By: #### L AB294 ####In House Cra: CHELSIE ISAACS ([id number])[facility])[address] [place] [address] CBC panel Auto (Bld)on 01-20 Erythrocyte distribution width (RBC) [Ratio] 16.4 % High 11.5 - 15.0 % [facility] Hematocrit (Bld) [Volume fraction] 26.9 % Low 35.0 - 47.0 % [facility] Hemoglobin (Bld) [Mass/Vol] 8.4 g/dL Low 11.7 - 16.0 g/dL [facility] Interpretation and review of laboratory results Abnormal [facility] MCH (RBC) [Entitic mass] 29.4 pg 26. 0 - 34.0 pg [facility] MCHC (RBC) [Mass/Vol] 31.2 % 30.5 - 36.0 % [facility] MCV (RBC) [Entitic vol] 94.1 fL 77.0 - 99.0 fL [facility] Platelet mean volume (Bld) [Entitic vol] 10.2 fL 9.0 - 12.7 fL [facility] Platelets (Bld) [#/Vol] 288 10*3/uL 140 - 440 10*3/uL [facility] RBC (Bld) [#/Vol] 2.86 10*6/uL Low 3.80 - 5.2 0 10*6/uL [facility] WBC (Bld) [#/Vol] 7.9 10*3/uL 3.6 - 10.7 10*3/uL [facility] COMPREHENSIVE METABOLIC PANE Lino 01-20-2025 Albumin [Mass/Vol] 3.1 g/dL Low 3.4-4.8 [facility] Comment on above: Performed By: #### Joseph AB103, LAB17, [id number] ####In House Cra: CHELSIE ISAACS ([id number])[address] ALP [Catalytic activity/Vol] 86 U/L Normal 40-150 [facility] Comment on above: Performed By: #### L AB103, LAB17, [id number] ####In House Cra: CHELSIE ISAACS ([id number])[address] ALT [Catalytic activity/Vol] 45 U/L High <30 [facility] Comment on above: Performed By: #### L AB103, LAB17, [id number] ####In House Cra: CHELSIE ISAACS ([id number])[facility] [place] [address] Anion gap [Moles/Vol] 7 mmol/L Normal 3-13 [facility] Comment on above: Performed By: #### Joseph PENALOZA, LAB17, [id number] ####In House Cra: CHELSIE ISAACS ([id number])[facility] [place] [address] AST [Catalytic activity/Vol] 32 U/L Normal <34 [facility] Comment on above: Performed By: #### Joseph PENALOZA, LAB17, [id number] ####In House Cra: CHELSIE ISAACS ([id number])[facility] [place] [address] Bilirubin [Mass/Vol] 0.7 mg/dL Normal <1.2 [facility] Comment on above: Performed By: #### Joseph PENALOZA, LAB17, [id number] ####In House Cra: CHELSIE ISAACS ([id number])[facility])[address] [place] [address] Calcium [Mass/Vol] 8.3 mg/dL Low 8.8-10.0 [facility] Comment on above: Performed By: #### Joseph PENALOZA, LAB17, [id number] ####In House Cra: CHELSIE ISAACS ([id number])[facility] [place] [address] [place] Chloride [Moles/Vol] 111 mmol/L High 98-107 [facility] Comment on above: Performed By: #### Joseph PENALOZA, LAB17, [id number] ####In House Cra: CHELSIE ISAACS ([id number])[facility] [place] [address] [place] CO2 [Moles/Vol] 24 mmol/L Normal 23-31 [facility] Comment on above: Performed By: #### Joseph PENALOZA, LAB17, [id number] ####In House Cra: CHELSIE ISAACS ([id number])[facility] ([facility])[address] [place] [address] [place] Creatinine [Mass/Vol] 0.85 mg/dL Normal 0.57-1.11 [facility] Comment on above: Performed By: #### Joseph PENALOZA, LAB17, [id number] ####In House Cra: CHELSIE ISAACS ([id number])[facility])[address] [place] [address] [place] GLOMERULAR FILTRATION RATE ML/MIN/1.73 SQ M.PREDICTED 70.2 mL/min/1.73m*2 Normal >60.0 [facility] Comment on above: Result Comment: Calc ulation based on the Chronic Kidney Disease Epidemiology Collaboration (CKD-EPI) equation refit without adjustment for race Performed By: #### Joseph PENALOZA, LAB17, [id number] ####In House Cra: CHELSIE ISAACS ([id number])[facility])[address] [place] [address] Glucose [Mass/Vol] 102 mg/dL Normal 82-115 [facility] Comment on above: Performed By: #### Joseph PENALOZA, LAB17, [id number] ####In House Cra: CHELSIE ISAACS ([id number])[facility])[address] [place] [address] [place] Potassium [Moles/Vol] 3.4 mmol/L Low 3.5-5.1 [facility] Comment on above: Result Comment: [facility] potassium values may be up to 0.5 mmol/L lower than serum values. Performed By: #### Joseph PENALOZA, LAB17, [id number] ####In House Cra: CHELSIE ISAACS ([id number])[facility])[address] [place] [address] Protein [Mass/Vol] 5.9 g/dL Low 6.4-8.3 [facility] Comment on above: Performed By: #### Joseph PENALOZA, LAB17, [id number] ####In House Cra: CHELSIE ISAACS ([id number])[facility])[address] [place] [address] [place] Sodium [Moles/Vol] 142 mmol/L Normal 136-145 [facility] Comment on above: Performed By: #### L AB103, LAB17, [id number] ####In House Cra: CHELSIE ISAACS ([id number])[facility] [place] [address] Urea nitrogen [Mass/Vol] 27 mg/dL High 9- [facility] Comment on above: Performed By: #### L AB103, LAB17, [id number] ####In House Cra: CHELSIE ISAACS ([id number])[facility])[address] [place] [address] Calcium.ionized [Moles/Vol]o n 01-20-2025 Calcium.ionized (Bld) [Moles/Vol] 4.1 mg/dL Low 4.30 - 5.20 mg/dL [facility] Interpretation and review of laboratory results Abnormal [facility] PH, IONIZED CALCIUM 7.45 7.31 - 7.46 [facility] Comprehensive metabolic 1998 panelon 01-20-2025 Albumin [Mass/Vol] 3.1 g/dL Low 3.4 - 4.8 g/dL [facility] ALP [Catalytic activity/Vol] 86 U/L 40 - 150 U/L [facility] ALT [Catalytic activity/Vol] 45 U/L High NINF - 30 U/L [facility] Anion gap [Moles/Vol] 7 mmol/L 3 - 13 mmol/L [facility] AST [Catalytic activity/Vol] 32 U[facility]/L [facility] Bilirubin [Mass/Vol] 0.7 mg/dL [facility] - 1.2 mg/dL [facility] Calcium [Mass/Vol] 8.3 mg/dL Low 8.8 - 10. 0 mg/dL [facility] Chloride [Moles/Vol] 111 mmol/L High 98 - 10 7 mmol/L [facility] CO2 [Moles/Vol] 24 mmol/L 23 - 31 mmol/L [facility] Creatinine [Mass/Vol] 0.85 mg/dL 0.57 - 1.11 mg/dL [facility] GFR/1.73 sq M.predicted (S/P/Bld) [Vol rate/Area] 70.2 mL/min - PINF [facility] Glucose [Mass/Vol] 102 mg/dL 82 - 115 mg/dL [facility] Interpretation and review of laboratory results Abnormal [facility] Potassium [Moles/Vol] 3.4 mmol/L Low 3.5 - 5.1 mmol/L [facility] Protein [Mass/Vol] 5.9 g/dL Low 6.4 - 8.3 g/dL [facility] Sodium [Moles/Vol] 142 mmol/L 136 - 145 mmol/L [facility] Urea nitrogen [Mass/Vol] 27 mg/dL High 9 - 23 mg/d L [facility] Laboratory - Chemistry and C hemistry - challengeon 01-20-2025 Magnesium [Mass/Vol] 1.8 mg/dL 1.6 - 2 .6 mg/dL [facility] MAGNESIUMon 01-20-2025 Magnesium [Mass/Vol] 1.8 mg/dL Normal 1.6-2.6 [facility] Comment on above: Result Comment: SHARA Hand COMMENTS:Higher values can be expected in females during menses. Performed By: #### L AB103, LAB17, [id number] ####In House Cra: CHELSIE ISAACS ([id number])[facility])[address] [place] [address] Magnesium [Mass/Vol]on 01-20 [facility] No Panel Informationon 01-20 Interpretation and review of laboratory results Normal [facility] PHOSPHORUSon 01-20-2025 Phosphate [Mass/Vol] 3.7 mg/dL Normal 2.3-4.7 [facility] Comment on above: Performed By: #### L AB103, LAB17, [id number] ####In House Cra: CHELSIE ISAACS ([id number])[facility] ([facility])[address] [place] [address] Phosphate [Moles/Vol]on 01-11 Phosphate [Mass/Vol] 3.7 mg/dL 2.3 - 4 .7 mg/dL [facility] Progress Noteon 01-20-2025 Progress Note [facility] Progress Note Normal [facility] Progress Note Normal [facility] 30on 01-19-2025 30 Normal [facility] [id number] 01-19-2025 [id number] Normal [facility] CALCIUM, IONIZEDon CALCIUM IONIZED 4.50 mg/dL Normal 4.30-5.20 [facility] Comment on above: Performed By: #### L AB54 ####In House Cra: CHELSIE ISAACS ([id number])[facility])[address] [place] [address] PH, IONIZED CALCIUM 7.38 Normal 7.31-7.46 [facility] Comment on above: Performed By: #### L AB54 ####In House Cra: CHELSIE ISAACS ([id number])[facility])[address] [place] [address] CBC (HEMOGRAM)on 01-19-2025 Erythrocyte distribution width (RBC) [Ratio] 16.3 % High 11.5-15.0 [facility] Comment on above: Performed By: #### L AB294 ####In House Cra: CHELSIE ISAACS ([id number])[facility])[address] [place] [address] Hematocrit (Bld) [Volume fraction] 30.0 % Low 35.0-47.0 [facility] Comment on above: Performed By: #### L AB294 ####In House Cra: CHELSIE ISAACS ([id number])[facility])[address] [place] [address] Hemoglobin (Bld) [Mass/Vol] 9.4 g/dL Low 11.7-16.0 [facility] Comment on above: Performed By: #### L AB294 ####In House Cra: CHELSIE ISAACS ([id number])[facility])[address] [place] [address] MCH (RBC) [Entitic mass] 29.4 pg Normal 26.0-34.0 [facility] Comment on above: Performed By: #### L AB294 ####In House Cra: CHELSIE ISAACS ([id number])[facility])[address] [place] [address] MCHC 31.3 % Normal 30.5-36.0 [facility] Comment on above: Performed By: #### L AB294 ####In House Cra: CHELSIE ISAACS ([id number])[facility])[address] [place] [address] MCV (RBC) [Entitic vol] 93.8 fL Normal 77.0-99.0 [facility] Comment on above: Performed By: #### L AB294 ####In House Cra: CHELSIE ISAACS ([id number])[facility])[address] [place] [address] Platelet mean volume (Bld) [Entitic vol] 10.3 fL Normal 9.0-12.7 [facility] Comment on above: Performed By: #### L AB294 ####In House Cra: CHELSIE ISAACS ([id number])[facility])[address] [place] [address] Platelets (Bld) [#/Vol] 264 10*3/uL Normal 140-440 [facility] Comment on above: Performed By: #### L AB294 ####In House Cra: CHELSIE ISAACS ([id number])[facility])[address] [place] [address] RBC (Bld) [#/Vol] 3.20 10*6/uL Low 3.80-5.20 [facility] Comment on above: Performed By: #### L AB294 ####In House Cra: CHELSIE ISAACS ([id number])[facility])[address] [place] [address] WBC (Bld) [#/Vol] 9.6 10*3/uL Normal 3.6-10.7 [facility] Comment on above: Performed By: #### L AB294 ####In House Cra: CHELSIE ISAACS ([id number])[facility])[address] [place] [address] CBC panel Auto (Bld)Ordered By: Joyce Blackburn on 01-19-2025 Erythrocyte distribution width (RBC) [Ratio] 16.3 % High 11.5 - 15.0 % [facility] Hematocrit (Bld) [Volume fraction] 30 % Low 35.0 - 47.0 % [facility] Hemoglobin (Bld) [Mass/Vol] 9.4 g/dL Low 11.7 - 16.0 g/dL [facility] Interpretation and review of laboratory results Abnormal [facility] MCH (RBC) [Entitic mass] 29.4 pg 26. 0 - 34.0 pg [facility] MCHC (RBC) [Mass/Vol] 31.3 % 30.5 - 36.0 % [facility] MCV (RBC) [Entitic vol] 93.8 fL 77.0 - 99.0 fL [facility] Platelet mean volume (Bld) [Entitic vol] 10.3 fL 9.0 - 12.7 fL [facility] Platelets (Bld) [#/Vol] 264 10*3/uL 140 - 440 10*3/uL [facility] RBC (Bld) [#/Vol] 3.2 10*6/uL Low 3.80 - 5.2 0 10*6/uL [facility] WBC (Bld) [#/Vol] 9.6 10*3/uL 3.6 - 10.7 10*3/uL [facility] COMPREHENSIVE METABOLIC PANE Lino 01-19-2025 Albumin [Mass/Vol] 3.6 g/dL Normal 3.4-4.8 [facility] Comment on above: Performed By: #### L AB17, [id number], [id number] ####In House Cra: CHELSIE ISAACS ([id number])[address] ALP [Catalytic activity/Vol] 108 U/L Normal 40-150 [facility] Comment on above: Performed By: #### L AB17, [id number], [id number] ####In House Cra: CHELSIE ISAACS ([id number])[address] ALT [Catalytic activity/Vol] 68 U/L High <30 [facility] Comment on above: Performed By: #### L AB17, [id number], IMC127 ####In House Cra: CHELSIE ISAACS ([id number])[facility] [place] [address] Anion gap [Moles/Vol] 11 mmol/L Normal 3-13 [facility] Comment on above: Performed By: #### L AB17, [id number], [id number] ####In House Cra: CHELSIE ISAACS ([id number])[facility] ([facility])[address] [place] [address] AST [Catalytic activity/Vol] 54 U/L High <34 [facility] Comment on above: Performed By: #### L AB17, [id number], [id number] ####In House Cra: CHELSIE ISAACS ([id number])[facility] ([facility])[address] [place] [address] Bilirubin [Mass/Vol] 0.9 mg/dL Normal <1.2 [facility] Comment on above: Performed By: #### Joseph ALBA, [id number], [id number] ####In House Cra: CHELSIE ISAACS ([id number])[facility] ([facility])[address] [place] [address] Calcium [Mass/Vol] 9.5 mg/dL Normal 8.8-10.0 [facility] Comment on above: Performed By: #### Joseph AB17, [id number], [id number] ####In House Cra: CHELSIE ISAACS ([id number])[facility] ([facility])[address] [place] [address] [place] Chloride [Moles/Vol] 111 mmol/L High 98-107 [facility] Comment on above: Performed By: #### L AB17, IES071, [id number] ####In House Cra: CHELSIE ISAACS ([id number])[facility] ([facility])[address] [place] [address] [place] CO2 [Moles/Vol] 21 mmol/L Low 23-31 [facility] Comment on above: Performed By: #### L AB17, [id number], [id number] ####In House Cra: CHELSIE ISAACS ([id number])[facility] ([facility])[address] [place] [address] [place] Creatinine [Mass/Vol] 0.95 mg/dL Normal 0.57-1.11 [facility] Comment on above: Performed By: #### Joseph AB17, [id number], [id number] ####In House Cra: CHELSIE ISAACS ([id number])[facility])[address] [place] [address] [place] GLOMERULAR FILTRATION RATE ML/MIN/1.73 SQ M.PREDICTED 61.5 mL/min/1.73m*2 Normal >60.0 [facility] Comment on above: Result Comment: Calc ulation based on the Chronic Kidney Disease Epidemiology Collaboration (CKD-EPI) equation refit without adjustment for race Performed By: #### Joseph [id number], [id number], [id number] ####In House Cra: CHELSIE ISAACS ([id number])[facility])[address] [place] [address] Glucose [Mass/Vol] 109 mg/dL Normal 82-115 [facility] Comment on above: Performed By: #### Joseph ALBA, [id number], [id number] ####In House Cra: CHELSIE ISAACS ([id number])[address] Potassium [Moles/Vol] 3.4 mmol/L Low 3.5-5.1 [facility] Comment on above: Result Comment: [facility] potassium values may be up to 0.5 mmol/L lower than serum values. Performed By: #### Joseph ALBA, [id number], [id number] ####In House Cra: CHELSIE ISAACS ([phone])[facility])[address] [place] [address] Protein [Mass/Vol] 7.1 g/dL Normal 6.4-8.3 [facility] Comment on above: Performed By: #### Joseph AB17, [id number], [id number] ####In House Cra: CHELSIE ISAACS ([phone])[facility])[address] [place] [address] [place] Sodium [Moles/Vol] 143 mmol/L Normal 136-145 [facility] Comment on above: Performed By: #### L AB17, [id number], [id number] ####In House Cra: CHELSIE ISAACS ([id number])[facility] ([facility])[address] [place] [address] Urea nitrogen [Mass/Vol] 34 mg/dL High 9-23 [facility] Comment on above: Performed By: #### L AB17, [id number], [id number] ####In House Cra: CHELSIE ISAACS ([id number])[facility] [place] [address] Calcium.ionized [Moles/Vol]o n 01-19-2025 Calcium.ionized (Bld) [Moles/Vol] 4.5 mg/dL 4.30 - 5.20 mg/dL [facility] Interpretation and review of laboratory results Normal [facility] PH, IONIZED CALCIUM 7.38 7.31 - 7.46 [facility] Comprehensive metabolic 1998 panelon 01-19-2025 Albumin [Mass/Vol] 3.6 g/dL 3.4 - 4.8 g/dL [facility] ALP [Catalytic activity/Vol] 108 U/L 40 - 150 U/L [facility] ALT [Catalytic activity/Vol] 68 U/L High [facility] Anion gap [Moles/Vol] 11 mmol/L 3 - 13 mmol/L [facility] AST [Catalytic activity/Vol] 54 U/L [facility] - 34 U/L [facility] Bilirubin [Mass/Vol] 0.9 mg/dL [facility] - 1.[facility] mg/dL [facility] Calcium [Mass/Vol] 9.5 mg/dL 8.8 - 10. 0 mg/dL [facility] Chloride [Moles/Vol] 111 mmol/L High 98 - 10 7 mmol/L [facility] CO2 [Moles/Vol] 21 mmol/L Low 23 - 31 mmol/L [facility] Creatinine [Mass/Vol] 0.95 mg/dL 0.57 - 1.11 mg/dL [facility] GFR/1.73 sq M.predicted (S/P/Bld) [Vol rate/Area] 61.5 mL/min - PINF [facility] Glucose [Mass/Vol] 109 mg/dL 82 - 115 mg/dL [facility] Interpretation and review of laboratory results Abnormal [facility] Potassium [Moles/Vol] 3.4 mmol/L Low 3.5 - 5.1 mmol/L [facility] Protein [Mass/Vol] 7.1 g/dL 6.4 - 8.3 g/dL [facility] Sodium [Moles/Vol] 143 mmol/L 136 - 145 mmol/L [facility] Urea nitrogen [Mass/Vol] 34 mg/dL High 9 - 23 mg/d L [facility] Laboratory - Chemistry and C hemistry - challengeon 01-19-2025 Magnesium [Mass/Vol] 2 mg/dL 1.6 - 2 .6 mg/dL [facility] MAGNESIUMon 01-19-2025 Magnesium [Mass/Vol] 2.0 mg/dL Normal 1.6-2.6 [facility] Comment on above: Result Comment: SHARA Hand COMMENTS:Higher values can be expected in females during menses. Performed By: #### L AB17, [id number], [id number] ####In House Cra: CHELSIE ISAACS ([id number])[facility])[address] [place] [address] Magnesium [Mass/Vol]on 01-19 [facility] No Panel Informationon 01-19 Interpretation and review of laboratory results Normal [facility] PHOSPHORUSon 01-19-2025 Phosphate [Mass/Vol] 3.8 mg/dL Normal 2.3-4.7 [facility] Comment on above: Performed By: #### L AB17, [id number], [id number] ####In House Cra: CHELSIE ISAACS ([id number])[facility])[address] [place] [address] Phosphate [Moles/Vol]on Phosphate [Mass/Vol] 3.8 mg/dL 2.3 - 4 .7 mg/dL [facility] Progress Noteon 01-19-2025 Progress Note [facility] Progress Note Normal [facility] Progress Note Normal [facility] XR CHEST 1 VIEWon 01-19-2025 XR CHEST 1 VIEW Normal [facility] XR Chest Single viewon 01-19 [facility] RADIOLOGY [facility] Radiology Study observation (narrative) Leda piña 30on 01-18-2025 30 Normal [facility] CALCIUM, IONIZEDon CALCIUM IONIZED 4.00 mg/dL Low 4.30-5.20 [facility] Comment on above: Performed By: #### L AB54 ####In House Cra: CHELSIE ISAACS ([phone])[facility])[address] [place] [address] PH, IONIZED CALCIUM 7.52 High 7.31-7.46 [facility] Comment on above: Performed By: #### L AB54 ####In House Cra: CHELSIE ISAACS ([phone])[facility])[address] [place] [address] CBC (HEMOGRAM)on 01-18-2025 Erythrocyte distribution width (RBC) [Ratio] 15.9 % High 11.5-15.0 [facility] Comment on above: Performed By: #### L [id number] ####In House Cra: CHELSIE ISAACS ([id number])[facility] ([facility])[address] [place] [address] Hematocrit (Bld) [Volume fraction] 27.9 % Low 35.0-47.0 [facility] Comment on above: Performed By: #### L AB294 ####In House Cra: CHELSIE ISAACS ([id number])[facility])[address] [place] [address] Hemoglobin (Bld) [Mass/Vol] 9.2 g/dL Low 11.7-16.0 [facility] Comment on above: Performed By: #### L [id number] ####In House Cra: CHELSIE ISAACS ([id number])[facility])[address] [place] [address] MCH (RBC) [Entitic mass] 30.2 pg Normal 26.0-34.0 [facility] Comment on above: Performed By: #### L AB294 ####In House Cra: CHELSIE [id number])[facility] [place] [address] MCHC 33.0 % Normal 30.5-36.0 [facility] Comment on above: Performed By: #### L [id number] ####In House Cra: CHELSIE ISAACS ([phone])[facility] ([facility])[address] [place] [address] MCV (RBC) [Entitic vol] 91.5 fL Normal 77.0-99.0 [facility] Comment on above: Performed By: #### L AB294 ####In House Cra: CHELSIE ISAACS ([id number])[facility] ([facility])[address] [place] [address] Platelet mean volume (Bld) [Entitic vol] 10.7 fL Normal 9.0-12.7 [facility] Comment on above: Performed By: #### L AB294 ####In House Cra: CHELSIE ISAACS ([id number])[facility] ([facility])[address] [place] [address] Platelets (Bld) [#/Vol] 192 10*3/uL Normal 140-440 [facility] Comment on above: Performed By: #### L [id number] ####In House Cra: CHELSIE ISAACS ([id number])[facility] ([facility])[address] [place] [address] RBC (Bld) [#/Vol] 3.05 10*6/uL Low 3.80-5.20 [facility] Comment on above: Performed By: #### L [id number] ####In House Cra: CHELSIE ISAACS ([id number])[facility] ([facility])[address] [place] [address] WBC (Bld) [#/Vol] 7.7 10*3/uL Normal 3.6-10.7 [facility] Comment on above: Performed By: #### L AB294 ####In House Cra: CHELSIE ISAACS ([id number])[facility] ([facility])[address] [place] [address] CBC panel Auto (Bld)on 01-18 Erythrocyte distribution width (RBC) [Ratio] 15.9 % High 11.5 - 15.0 % [facility] Hematocrit (Bld) [Volume fraction] 27.9 % Low 35.0 - 47.0 % [facility] Hemoglobin (Bld) [Mass/Vol] 9.2 g/dL Low 11.7 - 16.0 g/dL [facility] Interpretation and review of laboratory results Abnormal [facility] MCH (RBC) [Entitic mass] 30.2 pg 26. 0 - 34.0 pg [facility] MCHC (RBC) [Mass/Vol] 33 % 30.5 - 36.0 % [facility] MCV (RBC) [Entitic vol] 91.5 fL 77.0 - 99.0 fL [facility] Platelet mean volume (Bld) [Entitic vol] 10.7 fL 9.0 - 12.7 fL [facility] Platelets (Bld) [#/Vol] 192 10*3/uL 140 - 440 10*3/uL [facility] RBC (Bld) [#/Vol] 3.05 10*6/uL Low 3.80 - 5.2 0 10*6/uL [facility] WBC (Bld) [#/Vol] 7.7 10*3/uL 3.6 - 10.7 10*3/uL [facility] COMPREHENSIVE METABOLIC PANE Lino 01-18-2025 Albumin [Mass/Vol] 3.5 g/dL Normal 3.4-4.8 [facility] Comment on above: Performed By: #### L AB17, [id number], [id number] ####In House Cra: CHELSIE ISAACS ([id number])[facility])[address] [place] [address] ALP [Catalytic activity/Vol] 105 U/L Normal 40-150 [facility] Comment on above: Performed By: #### L AB17, [id number], [id number] ####In House Cra: CHELSIE ISAACS ([id number])[facility])[address] [place] [address] ALT [Catalytic activity/Vol] 71 U/L High <30 [facility] Comment on above: Performed By: #### L AB17, [id number], [id number] ####In House Cra: CHELSIE ISAACS ([id number])[facility] ([facility])[address] [place] [address] Anion gap [Moles/Vol] 14 mmol/L High 3-13 [facility] Comment on above: Performed By: #### L AB17, [id number], [id number] ####In House Cra: CHELSIE ISAACS ([id number])[facility] ([facility])[address] [place] [address] AST [Catalytic activity/Vol] 55 U/L High <34 [facility] Comment on above: Performed By: #### L AB17, [id number], [id number] ####In House Cra: CHELSIE ISAACS ([id number])[facility] ([facility])[address] [place] [address] Bilirubin [Mass/Vol] 0.8 mg/dL Normal <1.2 [facility] Comment on above: Performed By: #### L AB17, [id number], [id number] ####In House Cra: CHELSIE ISAACS ([id number])[facility] ([facility])[address] [place] [address] Calcium [Mass/Vol] 9.2 mg/dL Normal 8.8-10.0 [facility] Comment on above: Performed By: #### L AB17, [id number], [id number] ####In House Cra: CHELSIE ISAACS ([id number])[facility] ([facility])[address] [place] [address] [place] Chloride [Moles/Vol] 106 mmol/L Normal 98-107 [facility] Comment on above: Performed By: #### L AB17, [id number], [id number] ####In House Cra: CHELSIE ISAACS ([id number])[facility])[address] [place] [address] CO2 [Moles/Vol] 21 mmol/L Low 23-31 [facility] Comment on above: Performed By: #### L AB17, [id number], [id number] ####In House Cra: CHELSIE ISAACS ([id number])[facility] [place] [address] Creatinine [Mass/Vol] 0.92 mg/dL Normal 0.57-1.11 [facility] Comment on above: Performed By: #### L AB17, [id number], [id number] ####In House Cra: CHELSIE ISAACS ([id number])[facility])[address] [place] [address] [place] GLOMERULAR FILTRATION RATE ML/MIN/1.73 SQ M.PREDICTED 63.9 mL/min/1.73m*2 Normal >60.0 [facility] Comment on above: Result Comment: Calc ulation based on the Chronic Kidney Disease Epidemiology Collaboration (CKD-EPI) equation refit without adjustment for race Performed By: #### L AB17, [id number], [id number] ####In House Cra: CHELSIE ISAACS ([id number])[facility])[address] [place] [address] Glucose [Mass/Vol] 103 mg/dL Normal 82-115 [facility] Comment on above: Performed By: #### L AB17, [id number], [id number] ####In House Cra: CHELSIE ISAACS ([id number])[facility])[address] [place] [address] Potassium [Moles/Vol] 3.4 mmol/L Low 3.5-5.1 [facility] Comment on above: Result Comment: [facility] potassium values may be up to 0.5 mmol/L lower than serum values. Performed By: #### L AB17, [id number], [id number] ####In House Cra: CHELSIE ISAACS ([id number])[facility] ([facility])[address] [place] [address] Protein [Mass/Vol] 6.9 g/dL Normal 6.4-8.3 [facility] Comment on above: Performed By: #### L AB17, [id number], [id number] ####In House Cra: CHELSIE ISAACS ([id number])[facility])[address] [place] [address] [place] Sodium [Moles/Vol] 141 mmol/L Normal 136-145 [facility] Comment on above: Performed By: #### L AB17, [id number], [id number] ####In House Cra: CHELSIE ISAACS ([id number])[facility])[address] [place] [address] Urea nitrogen [Mass/Vol] 39 mg/dL High 9-23 [facility] Comment on above: Performed By: #### L AB17, [id number], [id number] ####In House Cra: CHELSIE ISAACS ([id number])[facility])[address] [place] [address] Calcium.ionized [Moles/Vol]o n 01-18-2025 Calcium.ionized (Bld) [Moles/Vol] 4 mg/dL Low 4.30 - 5.20 mg/dL [facility] Interpretation and review of laboratory results Abnormal [facility] PH, IONIZED CALCIUM 7.52 High 7.31 - 7.46 [facility] Comprehensive metabolic 1998 panelon 01-18-2025 Albumin [Mass/Vol] 3.5 g/dL 3.4 - 4.8 g/dL [facility] ALP [Catalytic activity/Vol] 105 U/L 40 - 150 U/L [facility] ALT [Catalytic activity/Vol] 71 U/L High [facility] - 30 U/L [facility] Anion gap [Moles/Vol] 14 mmol/L High 3 - 13 mmol/L [facility] AST [Catalytic activity/Vol] 55 U/L High [facility] - 34 U/L [facility] Bilirubin [Mass/Vol] 0.8 mg/dL [facility] mg/dL [facility] Calcium [Mass/Vol] 9.2 mg/dL 8.8 - 10. 0 mg/dL [facility] Chloride [Moles/Vol] 106 mmol/L 98 - 10 7 mmol/L [facility] CO2 [Moles/Vol] 21 mmol/L Low 23 - 31 mmol/L [facility] Creatinine [Mass/Vol] 0.92 mg/dL 0.57 - 1.11 mg/dL [facility] GFR/1.73 sq M.predicted (S/P/Bld) [Vol rate/Area] 63.9 mL/min - PINF [facility] Glucose [Mass/Vol] 103 mg/dL 82 - 115 mg/dL [facility] Interpretation and review of laboratory results Abnormal [facility] Potassium [Moles/Vol] 3.4 mmol/L Low 3.5 - 5.1 mmol/L [facility] Protein [Mass/Vol] 6.9 g/dL 6.4 - 8.3 g/dL [facility] Sodium [Moles/Vol] 141 mmol/L 136 - 145 mmol/L [facility] Urea nitrogen [Mass/Vol] 39 mg/dL High 9 - 23 mg/d L [facility] Laboratory - Chemistry and C hemistry - challengeon 01-18-2025 Potassium [Moles/Vol] 3.4 mmol/L Low 3.5 - 5.1 mmol/L [facility] Magnesium [Mass/Vol] 2.2 mg/dL 1.6 - 2 .6 mg/dL [facility] MAGNESIUMon 01-18-2025 Magnesium [Mass/Vol] 2.2 mg/dL Normal 1.6-2.6 [facility] Comment on above: Result Comment: SHARA Hand COMMENTS:Higher values can be expected in females during menses. Performed By: #### L AB17, [id number], [id number] ####In House Cra: CHELSIE ISAACS ([phone])[address] Magnesium [Mass/Vol]on 01-18 [facility] No Panel Informationon 01-18 Interpretation and review of laboratory results Normal [facility] Nursing Noteon 01-18-2025 Nursing Note Normal [facility] PHOSPHORUSon 01-18-2025 Phosphate [Mass/Vol] 3.8 mg/dL Normal 2.3-4.7 [facility] Comment on above: Performed By: #### L AB17, [id number], [id number] ####In House Cra: CHELSIE ISAACS ([id number])[facility])[address] [place] [address] POTASSIUMon 01-18-2025 Potassium [Moles/Vol] 3.4 mmol/L Low 3.5-5.1 [facility] Comment on above: Result Comment: [facility] potassium values may be up to 0.5 mmol/L lower than serum values. Performed By: #### L AB114 ####In House Cra: CHELSIE ISAACS ([id number])[facility] ([facility])[address] [place] [address] Phosphate [Moles/Vol]on Phosphate [Mass/Vol] 3.8 mg/dL 2.3 - 4 .7 mg/dL [facility] Potassium [Moles/Vol]on Interpretation and review of laboratory results Abnormal [facility] Progress Noteon 01-18-2025 Progress Note Normal [facility] XR CHEST 1 VIEWon 01-18-2025 XR CHEST 1 VIEW Normal [facility] XR Chest Single viewon 01-18 [facility] Radiology Study observation (narrative) [facility] XR Chest Single viewOrdered By: Guru Palma on 01-18-2025 [facility] Work Phone: 30on 01-17-2025 30 Normal [facility] CALCIUM, IONIZEDon CALCIUM IONIZED 4.60 mg/dL Normal 4.30-5.20 [facility] Comment on above: Performed By: #### L AB54 ####In House Cra: CHELSIE ISAACS ([id number])[facility] ([facility])[address] [place] [address] PH, IONIZED CALCIUM 7.37 Normal 7.31-7.46 [facility] Comment on above: Performed By: #### L AB54 ####In House Cra: CHELSIE ISAACS ([id number])[facility] ([facility])[address] [place] [address] CBC (HEMOGRAM)on 01-17-2025 Erythrocyte distribution width (RBC) [Ratio] 15.7 % High 11.5-15.0 [facility] Comment on above: Performed By: #### L AB294 ####In House Cra: CHELSIE ISAACS ([id number])[facility] ([facility])[address] [place] [address] Hematocrit (Bld) [Volume fraction] 24.9 % Low 35.0-47.0 [facility] Comment on above: Performed By: #### L AB294 ####In House Cra: CHELSIE ISAACS ([id number])[facility])[address] [place] [address] Hemoglobin (Bld) [Mass/Vol] 7.8 g/dL Low 11.7-16.0 [facility] Comment on above: Performed By: #### L AB294 ####In House Cra: CHELSIE ISAACS ([id number])[facility] ([facility])[address] [place] [address] MCH (RBC) [Entitic mass] 29.0 pg Normal 26.0-34.0 [facility] Comment on above: Performed By: #### L AB294 ####In House Cra: CHELSIE ISAACS ([id number])[facility])[address] [place] [address] MCHC 31.3 % Normal 30.5-36.0 [facility] Comment on above: Performed By: #### L AB294 ####In House Cra: CHELSIE ISAACS ([id number])[facility] ([facility])[address] [place] [address] MCV (RBC) [Entitic vol] 92.6 fL Normal 77.0-99.0 [facility] Comment on above: Performed By: #### L AB294 ####In House Cra: CHELSIE ISAACS ([id number])[facility])[address] [place] [address] Platelet mean volume (Bld) [Entitic vol] 10.4 fL Normal 9.0-12.7 [facility] Comment on above: Performed By: #### L AB294 ####In House Cra: CHELSIE ISAACS ([id number])[facility])[address] [place] [address] Platelets (Bld) [#/Vol] 165 10*3/uL Normal 140-440 [facility] Comment on above: Performed By: #### L AB294 ####In House Cra: CHELSIE ISAACS ([id number])[facility])[address] [place] [address] RBC (Bld) [#/Vol] 2.69 10*6/uL Low 3.80-5.20 [facility] Comment on above: Performed By: #### L AB294 ####In House Cra: CHELSIE ISAACS ([id number])[facility])[address] [place] [address] WBC (Bld) [#/Vol] 6.6 10*3/uL Normal 3.6-10.7 [facility] Comment on above: Performed By: #### L AB294 ####In House Cra: CHELSIE ISAACS ([id number])[address] CBC panel Auto (Bld)Ordered By: Keaton Pandey on 01-17-2025 Erythrocyte distribution width (RBC) [Ratio] 15.7 % High 11.5 - 15.0 % [facility] Hematocrit (Bld) [Volume fraction] 24.9 % Low 35.0 - 47.0 % [facility] Hemoglobin (Bld) [Mass/Vol] 7.8 g/dL Low 11.7 - 16.0 g/dL [facility] Interpretation and review of laboratory results Abnormal [facility] MCH (RBC) [Entitic mass] 29 pg 26. 0 - 34.0 pg [facility] MCHC (RBC) [Mass/Vol] 31.3 % 30.5 - 36.0 % [facility] MCV (RBC) [Entitic vol] 92.6 fL 77.0 - 99.0 fL [facility] Platelet mean volume (Bld) [Entitic vol] 10.4 fL 9.0 - 12.7 fL [facility] Platelets (Bld) [#/Vol] 165 10*3/uL 140 - 440 10*3/uL [facility] RBC (Bld) [#/Vol] 2.69 10*6/uL Low 3.80 - 5.2 0 10*6/uL [facility] WBC (Bld) [#/Vol] 6.6 10*3/uL 3.6 - 10.7 10*3/uL [facility] COMPREHENSIVE METABOLIC PANE Lino 01-17-2025 Albumin [Mass/Vol] 3.2 g/dL Low 3.4-4.8 [facility] Comment on above: Performed By: #### L AB113, LAB17, [id number] ####In House Cra: CHELSIE ISAACS ([id number])[facility] ([facility])[address] [place] [address] ALP [Catalytic activity/Vol] 101 U/L Normal 40-150 [facility] Comment on above: Performed By: #### Joseph ABChelsea, LAB17, [id number] ####In House Cra: CHELSIE ISAACS ([id number])[facility] ([facility])[address] [place] [address] ALT [Catalytic activity/Vol] 75 U/L High <30 [facility] Comment on above: Performed By: #### Joseph ABChelsea, LAB17, [id number] ####In House Cra: CHELSIE ISAACS ([id number])[facility] ([facility])[address] [place] [address] Anion gap [Moles/Vol] 11 mmol/L Normal 3-13 [facility] Comment on above: Performed By: #### Joseph AB113, LAB17, [id number] ####In House Cra: CHELSIE ISAACS ([id number])[facility] ([facility])[address] [place] [address] AST [Catalytic activity/Vol] 59 U/L High <34 [facility] Comment on above: Performed By: #### L AB113, LAB17, [id number] ####In House Cra: CHELSIE ISAACS ([id number])[facility] ([facility])[address] [place] [address] Bilirubin [Mass/Vol] 0.6 mg/dL Normal <1.2 [facility] Comment on above: Performed By: #### L AB113, LAB17, [id number] ####In House Cra: CHELSIE ISAACS ([id number])[facility] ([facility])[address] [place] [address] [place] Calcium [Mass/Vol] 8.7 mg/dL Low 8.8-10.0 [facility] Comment on above: Performed By: #### Joseph ABChelsea, LAB17, [id number] ####In House Cra: CHELSIE ISAACS ([id number])[facility] [place] [address] Chloride [Moles/Vol] 106 mmol/L Normal 98-107 [facility] Comment on above: Performed By: #### Joseph ABChelsea, LAB17, [id number] ####In House Cra: CHELSIE ISAACS ([phone])[facility] ([facility])[address] [place] [address] CO2 [Moles/Vol] 24 mmol/L Normal 23-31 [facility] Comment on above: Performed By: #### Joseph HERNANDEZ, LAB17, [id number] ####In House Cra: CHELSIE ISAACS ([phone])[facility] ([facility])[address] [place] [address] Creatinine [Mass/Vol] 1.03 mg/dL Normal 0.57-1.11 [facility] [facility] Comment on above: Performed By: #### Joseph HERNANDEZ, LAB17, [id number] ####In House Cra: CHELSIE ISAACS ([phone])[facility] ([facility])[address] [place] [address] [place] GLOMERULAR FILTRATION RATE ML/MIN/1.73 SQ M.PREDICTED 55.8 mL/min/1.73m*2 Low >60.0 [facility] Comment on above: Result Comment: Calc ulation based on the Chronic Kidney Disease Epidemiology Collaboration (CKD-EPI) equation refit without adjustment for race Performed By: #### Joseph ABChelsea, LAB17, [id number] ####In House Cra: CHELSIE ISAACS ([id number])[facility] ([facility])[address] [place] [address] [place] Glucose [Mass/Vol] 103 mg/dL Normal 82-115 [facility] Comment on above: Performed By: #### L ABChelsea, LAB17, [id number] ####In House Cra: CHELSIE ISAACS ([id number])[facility])[address] [place] [address] Potassium [Moles/Vol] 3.8 mmol/L Normal 3.5-5.1 [facility] Comment on above: Result Comment: [facility] potassium values may be up to 0.5 mmol/L lower than serum values. Performed By: #### L AB113, LAB17, [id number] ####In House Cra: CHELSIE ISAACS ([id number])[facility] ([facility])[address] [place] [address] Protein [Mass/Vol] 5.9 g/dL Low 6.4-8.3 [facility] Comment on above: Performed By: #### L AB113, LAB17, [id number] ####In House Cra: CHELSIE ISAACS ([id number])[facility])[address] [place] [address] Sodium [Moles/Vol] 141 mmol/L Normal 136-145 [facility] Comment on above: Performed By: #### L AB113, LAB17, [id number] ####In House Cra: CHELSIE ISAACS ([id number])[facility])[address] [place] [address] Urea nitrogen [Mass/Vol] 55 mg/dL High 9-23 [facility] Comment on above: Performed By: #### L AB113, LAB17, [id number] ####In House Cra: CHELSIE ISAACS ([id number])[address] Calcium.ionized [Moles/Vol]o n 01-17-2025 Calcium.ionized (Bld) [Moles/Vol] 4.6 mg/dL 4.30 - 5.20 mg/dL [facility] Interpretation and review of laboratory results Normal [facility] PH, IONIZED CALCIUM 7.37 7.31 - 7.46 [facility] Comprehensive metabolic 1998 panelon 01-17-2025 Albumin [Mass/Vol] 3.2 g/dL Low 3.4 - 4.8 g/dL [facility] ALP [Catalytic activity/Vol] 101 U/L 40 - 150 U/L [facility] ALT [Catalytic activity/Vol] 75 U/L [facility]L [facility] Anion gap [Moles/Vol] 11 mmol/L 3 - 13 mmol/L [facility] AST [Catalytic activity/Vol] 59 U/L High [facility] - [facility] U/L [facility] Bilirubin [Mass/Vol] 0.6 mg/dL NINF - 1.2 mg/dL [facility] Calcium [Mass/Vol] 8.7 mg/dL Low 8.8 - 10. 0 mg/dL [facility] Chloride [Moles/Vol] 106 mmol/L 98 - 10 7 mmol/L [facility] CO2 [Moles/Vol] 24 mmol/L 23 - 31 mmol/L [facility] Creatinine [Mass/Vol] 1.03 mg/dL 0.57 - 1.11 mg/dL [facility] GFR/1.73 sq M.predicted (S/P/Bld) [Vol rate/Area] 55.8 mL/min Low - PINF [facility] Glucose [Mass/Vol] 103 mg/dL 82 - 115 mg/dL [facility] Interpretation and review of laboratory results Abnormal [facility] Potassium [Moles/Vol] 3.8 mmol/L 3.5 - 5.1 mmol/L [facility] Protein [Mass/Vol] 5.9 g/dL Low 6.4 - 8.3 g/dL [facility] Sodium [Moles/Vol] 141 mmol/L 136 - 145 mmol/L [facility] Urea nitrogen [Mass/Vol] 55 mg/dL High 9 - 23 mg/d L [facility] Laboratory - Chemistry and C hemistry - challengeon 01-17-2025 Magnesium [Mass/Vol] 2.3 mg/dL 1.6 - 2 .6 mg/dL [facility] MAGNESIUMon 01-17-2025 Magnesium [Mass/Vol] 2.3 mg/dL Normal 1.6-2.6 [facility] Comment on above: Result Comment: SHARA Hand COMMENTS:Higher values can be expected in females during menses. Performed By: #### L AB113, LAB17, [id number] ####In House Cra: CHELSIE ISAACS ([id number])[facility] ([place] [id number] [place] Magnesium [Mass/Vol]on 01-17 [facility] No Panel Informationon 01-17 Interpretation and review of laboratory results Normal [facility] PHOSPHORUSon 01-17-2025 Phosphate [Mass/Vol] 3.6 mg/dL Normal 2.3-4.7 [facility] Comment on above: Performed By: #### L AB113, LAB17, [id number] ####In House Cra: CHELSIE ISAACS ([id number])[facility] ([facility])[address] [place] [address] [place] Phosphate [Moles/Vol]on Phosphate [Mass/Vol] 3.6 mg/dL 2.3 - 4 .7 mg/dL [facility] Progress Noteon 01-17-2025 Progress Note Normal [facility] XR CHEST 1 VIEWon 01-17-2025 XR CHEST 1 VIEW Normal [facility] XR Chest Single viewon 01-17 [facility] Radiology Study observation (narrative) [facility] 30on 01-16-2025 30 Normal [facility] [id number] 01-16-2025 [id number] Normal [facility] CALCIUM, IONIZEDon CALCIUM IONIZED 4.60 mg/dL Normal 4.30-5.20 [facility] Comment on above: Performed By: #### L AB54 ####In House Cra: CHELSIE ISAACS ([id number])[facility] ([facility])[address] [place] [address] PH, IONIZED CALCIUM 7.39 Normal 7.31-7.46 [facility] Comment on above: Performed By: #### L AB54 ####In House Cra: CHELSIE ISAACS ([id number])[facility] ([facility])[address] [place] [address] CBC (HEMOGRAM)on 01-16-2025 Erythrocyte distribution width (RBC) [Ratio] 15.8 % High 11.5-15.0 [facility] Comment on above: Performed By: #### L AB294 ####In House Cra: CHELSIE ISAACS ([id number])[facility] ([facility])[address] [place] [address] Hematocrit (Bld) [Volume fraction] 22.4 % Low 35.0-47.0 [facility] Comment on above: Performed By: #### L AB294 ####In House Cra: CHELSIE ISAACS ([id number])[facility] ([facility])[address] [place] [address] Hemoglobin (Bld) [Mass/Vol] 7.3 g/dL Low 11.7-16.0 [facility] Comment on above: Performed By: #### L AB294 ####In House Cra: CHELSIE ISAACS ([id number])[facility])[address] [place] [address] MCH (RBC) [Entitic mass] 29.6 pg Normal 26.0-34.0 [facility] Comment on above: Performed By: #### L AB294 ####In House Cra: CHELSIE ISAACS ([id number])[facility] ([facility])[address] [place] [address] MCHC 32.6 % Normal 30.5-36.0 [facility] Comment on above: Performed By: #### L AB294 ####In House Cra: CHELSIE ISAACS ([id number])[facility])[address] [place] [address] MCV (RBC) [Entitic vol] 90.7 fL Normal 77.0-99.0 [facility] Comment on above: Performed By: #### L AB294 ####In House Cra: CHELSIE ISAACS ([id number])[facility])[address] [place] [address] Platelet mean volume (Bld) [Entitic vol] 11.0 fL Normal 9.0-12.7 [facility] Comment on above: Performed By: #### L AB294 ####In House Cra: CHELSIE ISAACS ([id number])[facility])[address] [place] [address] Platelets (Bld) [#/Vol] 116 10*3/uL Low 140-440 [facility] Comment on above: Performed By: #### L AB294 ####In House Cra: CHELSIE ISAACS ([id number])[facility])[address] [place] [address] RBC (Bld) [#/Vol] 2.47 10*6/uL Low 3.80-5.20 [facility] Comment on above: Performed By: #### L AB294 ####In House Cra: CHELSIE ISAACS ([id number])[address] WBC (Bld) [#/Vol] 7.3 10*3/uL Normal 3.6-10.7 [facility] Comment on above: Performed By: #### L AB294 ####In House Cra: CHELSIE ISAACS ([id number])[facility])[address] [place] [address] CBC panel Auto (Bld)on 01-16 Erythrocyte distribution width (RBC) [Ratio] 15.8 % High 11.5 - 15.0 % [facility] Hematocrit (Bld) [Volume fraction] 22.4 % Low 35.0 - 47.0 % [facility] Hemoglobin (Bld) [Mass/Vol] 7.3 g/dL Low 11.7 - 16.0 g/dL [facility] Interpretation and review of laboratory results Abnormal [facility] MCH (RBC) [Entitic mass] 29.6 pg 26. 0 - 34.0 pg [facility] MCHC (RBC) [Mass/Vol] 32.6 % 30.5 - 36.0 % [facility] MCV (RBC) [Entitic vol] 90.7 fL 77.0 - 99.0 fL [facility] Platelet mean volume (Bld) [Entitic vol] 11 fL 9.0 - 12.7 fL [facility] Platelets (Bld) [#/Vol] 116 10*3/uL Low 140 - 440 10*3/uL [facility] RBC (Bld) [#/Vol] 2.47 10*6/uL Low 3.80 - 5.2 0 10*6/uL [facility] WBC (Bld) [#/Vol] 7.3 10*3/uL 3.6 - 10.7 10*3/uL [facility] COMPREHENSIVE METABOLIC PANE Lino 01-16-2025 Albumin [Mass/Vol] 3.3 g/dL Low 3.4-4.8 [facility] Comment on above: Performed By: #### L AB103, [id number], LAB17 ####In House Cra: CHELSIE ISAACS ([id number])[facility] ([facility])[address] [place] [address] ALP [Catalytic activity/Vol] 91 U/L Normal 40-150 [facility] Comment on above: Performed By: #### L AB103, [id number], LAB17 ####In House Cra: CHELSIE ISAACS ([id number])[facility] ([facility])[address] [place] [address] ALT [Catalytic activity/Vol] 92 U/L High <30 [facility] Comment on above: Performed By: #### L AB103, [id number], LAB17 ####In House Cra: CHELSIE ISAACS ([id number])[facility] ([facility])[address] [place] [address] Anion gap [Moles/Vol] 9 mmol/L Normal 3-13 [facility] Comment on above: Performed By: #### L AB103, CUG250, LAB17 ####In House Cra: CHELSIE ISAACS ([id number])[facility])[address] [place] [address] AST [Catalytic activity/Vol] 84 U/L High <34 [facility] Comment on above: Performed By: #### L AB103, HOT795, LAB17 ####In House Cra: CHELSIE ISAACS ([id number])[facility])[address] [place] [address] Bilirubin [Mass/Vol] 0.6 mg/dL Normal <1.2 [facility] Comment on above: Performed By: #### L AB103, [id number], LAB17 ####In House Cra: CHELSIE ISAACS ([id number])[facility] [place] [address] Calcium [Mass/Vol] 8.7 mg/dL Low 8.8-10.0 [facility] Comment on above: Performed By: #### L AB103, IBR453, LAB17 ####In House Cra: CHELSIE ISAACS ([id number])[facility])[address] [place] [address] Chloride [Moles/Vol] 107 mmol/L Normal 98-107 [facility] Comment on above: Performed By: #### L AB103, [id number], LAB17 ####In House Cra: CHELSIE ISAACS ([id number])[facility] [place] [address] CO2 [Moles/Vol] 20 mmol/L Low 23-31 [facility] Comment on above: Performed By: #### Joseph AB103, UHT169, LAB17 ####In House Cra: CHELSIE ISAACS ([id number])[facility])[address] [place] [address] Creatinine [Mass/Vol] 1.13 mg/dL High 0.57-1.11 [facility] Comment on above: Performed By: #### L AB103, [id number], LAB17 ####In House Cra: CHELSIE ISAACS ([id number])[facility] [place] [address] [place] GLOMERULAR FILTRATION RATE ML/MIN/1.73 SQ M.PREDICTED 49.9 mL/min/1.73m*2 Low >60.0 [facility] Comment on above: Result Comment: Calc ulation based on the Chronic Kidney Disease Epidemiology Collaboration (CKD-EPI) equation refit without adjustment for race Performed By: #### L AB103, [id number], LAB17 ####In House Cra: CHELSIE ISAACS ([id number])[facility] [place] [address] [place] Glucose [Mass/Vol] 104 mg/dL Normal 82-115 [facility] Comment on above: Performed By: #### L AB103, [id number], LAB17 ####In House Cra: CHELSIE ISAACS ([id number])[facility])[address] [place] [address] Potassium [Moles/Vol] 3.9 mmol/L Normal 3.5-5.1 [facility] Comment on above: Result Comment: [facility] potassium values may be up to 0.5 mmol/L lower than serum values. Performed By: #### L AB103, [id number], LAB17 ####In House Cra: CHELSIE ISAACS ([id number])[facility] ([facility])[address] [place] [address] Protein [Mass/Vol] 5.8 g/dL Low 6.4-8.3 [facility] Comment on above: Performed By: #### Joseph AB103, [id number], LAB17 ####In House Cra: CHELSIE ISAACS ([id number])[facility] ([facility])[address] [place] [address] Sodium [Moles/Vol] 136 mmol/L Normal 136-145 [facility] Comment on above: Performed By: #### L AB103, [id number], LAB17 ####In House Cra: CHELSIE ISAACS ([id number])[facility])[address] [place] [address] Urea nitrogen [Mass/Vol] 49 mg/dL High 9-23 [facility] Comment on above: Performed By: #### L AB103, UXH108, LAB17 ####In House Cra: CHELSIE ISAACS ([id number])[facility])[address] [place] [address] Calcium.ionized [Moles/Vol]o n 01-16-2025 Calcium.ionized (Bld) [Moles/Vol] 4.6 mg/dL 4.30 - 5.20 mg/dL [facility] Interpretation and review of laboratory results Normal [facility] PH, IONIZED CALCIUM 7.39 7.31 - 7.46 [facility] Comprehensive metabolic 1998 panelon 01-16-2025 Albumin [Mass/Vol] 3.3 g/dL Low 3.4 - 4.8 g/dL [facility] ALP [Catalytic activity/Vol] 91 U/L 40 - 150 U/L [facility] ALT [Catalytic activity/Vol] 92 U/L High NINF - 30 U/L [facility] Anion gap [Moles/Vol] 9 mmol/L 3 - 13 mmol/L [facility] AST [Catalytic activity/Vol] 84 U/L High NINF - 34 U/L [facility] Bilirubin [Mass/Vol] 0.6 mg/dL NINF - 1.2 mg/dL [facility] Calcium [Mass/Vol] 8.7 mg/dL Low 8.8 - 10. 0 mg/dL [facility] Chloride [Moles/Vol] 107 mmol/L 98 - 10 7 mmol/L [facility] CO2 [Moles/Vol] 20 mmol/L Low 23 - 31 mmol/L [facility] Creatinine [Mass/Vol] 1.13 mg/dL High 0.57 - 1.11 mg/dL [facility] GFR/1.73 sq M.predicted (S/P/Bld) [Vol rate/Area] 49.9 mL/min Low - PINF [facility] Glucose [Mass/Vol] 104 mg/dL 82 - 115 mg/dL [facility] Interpretation and review of laboratory results Abnormal [facility] Potassium [Moles/Vol] 3.9 mmol/L 3.5 - 5.1 mmol/L [facility] Protein [Mass/Vol] 5.8 g/dL Low 6.4 - 8.3 g/dL [facility] Sodium [Moles/Vol] 136 mmol/L 136 - 145 mmol/L [facility] Urea nitrogen [Mass/Vol] 49 mg/dL High 9 - 23 mg/d L [facility] Laboratory - Chemistry and C hemistry - challengeon 01-16-2025 Magnesium [Mass/Vol] 2.4 mg/dL 1.6 - 2 .6 mg/dL [facility] MAGNESIUMon 01-16-2025 Magnesium [Mass/Vol] 2.4 mg/dL Normal 1.6-2.6 [facility] Comment on above: Result Comment: ORDDerik R COMMENTS:Higher values can be expected in females during menses. Performed By: #### L AB103, MSR030, LAB17 ####In House Cra: CHELSIE ISAACS ([id number])[facility] ([facility] [place] [address] [place] Magnesium [Mass/Vol]on 01-16 [facility] No Panel Informationon 01-16 Interpretation and review of laboratory results Normal [facility] PHOSPHORUSon 01-16-2025 Phosphate [Mass/Vol] 2.9 mg/dL Normal 2.3-4.7 [facility] Comment on above: Performed By: #### L AB103, [id number], LAB17 ####In House Cra: CHELSIE ISAACS ([id number])[facility] ([facility])[address] [place] [address] [place] Phosphate [Moles/Vol]on Phosphate [Mass/Vol] 2.9 mg/dL 2.3 - 4 .7 mg/dL [facility] Progress Noteon 01-16-2025 Progress Note Normal [facility] Note [facility] Progress Note Normal [facility] Progress Note Normal [facility] XR CHEST 1 VIEWon 01-16-2025 XR CHEST 1 VIEW Normal [facility] XR Chest Single viewon 01-16 [facility] Radiology Study observation (narrative) [facility] XR Chest Single viewOrdered By: Jhonatan Brewer on 01-16-2025 [facility] Work Phone: 30on 01-15-2025 30 Normal [facility] [id number] 01-15-2025 [id number] Normal [facility] CALCIUM, IONIZEDon CALCIUM IONIZED 4.40 mg/dL Normal 4.30-5.20 [facility] Comment on above: Performed By: #### L AB54 ####In House Cra: CHELSIE ISAACS ([id number])[facility] ([facility])[address] [place] [address] [place] PH, IONIZED CALCIUM 7.47 High 7.31-7.46 [facility] Comment on above: Performed By: #### L AB54 ####In House Cra: CHELSIE ISAACS ([id number])[facility])[address] [place] [address] CBC (HEMOGRAM)on 01-15-2025 Erythrocyte distribution width (RBC) [Ratio] 15.8 % High 11.5-15.0 [facility] Comment on above: Performed By: #### L AB294 ####In House Cra: CHELSIE ISAACS ([id number])[facility])[address] [place] [address] Hematocrit (Bld) [Volume fraction] 25.1 % Low 35.0-47.0 [facility] Comment on above: Performed By: #### L AB294 ####In House Cra: CHELSIE ISAACS ([id number])[address] Hemoglobin (Bld) [Mass/Vol] 8.2 g/dL Low 11.7-16.0 [facility] Comment on above: Performed By: #### L AB294 ####In House Cra: CHELSIE ISAACS ([id number])[address] MCH (RBC) [Entitic mass] 29.8 pg Normal 26.0-34.0 [facility] Comment on above: Performed By: #### L AB294 ####In House Cra: CHELSIE ISAACS ([id number])[address] MCHC 32.7 % Normal 30.5-36.0 [facility] Comment on above: Performed By: #### L AB294 ####In House Cra: CHELSIE ISAACS ([id number])[address] MCV (RBC) [Entitic vol] 91.3 fL Normal 77.0-99.0 [facility] Comment on above: Performed By: #### L AB294 ####In House Cra: CHELSIE ISAACS ([id number])[facility] ([facility])[address] [place] [address] Platelet mean volume (Bld) [Entitic vol] 10.9 fL Normal 9.0-12.7 [facility] Comment on above: Performed By: #### L AB294 ####In House Cra: CHELSIE ISAACS ([id number])[facility] ([facility])[address] [place] [address] Platelets (Bld) [#/Vol] 102 10*3/uL Low 140-440 [facility] Comment on above: Performed By: #### L AB294 ####In House Cra: CHELSIE ISAACS ([id number])[facility])[address] [place] [address] RBC (Bld) [#/Vol] 2.75 10*6/uL Low 3.80-5.20 [facility] Comment on above: Performed By: #### L AB294 ####In House Cra: CHELSIE ISAACS ([id number])[facility] ([facility])[address] [place] [address] WBC (Bld) [#/Vol] 9.0 10*3/uL Normal 3.6-10.7 [facility] Comment on above: Performed By: #### L AB294 ####In House Cra: CHELSIE ISAACS ([id number])[facility])[address] [place] [address] CBC panel Auto (Bld)on 01-15 Erythrocyte distribution width (RBC) [Ratio] 15.8 % High 11.5 - 15.0 % [facility] Hematocrit (Bld) [Volume fraction] 25.1 % Low 35.0 - 47.0 % [facility] Hemoglobin (Bld) [Mass/Vol] 8.2 g/dL Low 11.7 - 16.0 g/dL [facility] Interpretation and review of laboratory results Abnormal [facility] MCH (RBC) [Entitic mass] 29.8 pg 26. 0 - 34.0 pg [facility] MCHC (RBC) [Mass/Vol] 32.7 % 30.5 - 36.0 % [facility] MCV (RBC) [Entitic vol] 91.3 fL 77.0 - 99.0 fL [facility] Platelet mean volume (Bld) [Entitic vol] 10.9 fL 9.0 - 12.7 fL [facility] Platelets (Bld) [#/Vol] 102 10*3/uL Low 140 - 440 10*3/uL [facility] RBC (Bld) [#/Vol] 2.75 10*6/uL Low 3.80 - 5.2 0 10*6/uL [facility] WBC (Bld) [#/Vol] 9 10*3/uL 3.6 - 10.7 10*3/uL [facility] COMPREHENSIVE METABOLIC PANE Lino 01-15-2025 Albumin [Mass/Vol] 3.6 g/dL Normal 3.4-4.8 [facility] Comment on above: Performed By: #### Joseph AB17, [id number], OWC829 ####In House Cra: CHELSIE ISAACS ([id number])[facility])[address] [place] [address] ALP [Catalytic activity/Vol] 78 U/L Normal 40-150 [facility] Comment on above: Performed By: #### Joseph AB17, [id number], DVC365 ####In House Cra: CHELSIE ISAACS ([id number])[facility] ([facility])[address] [place] [address] ALT [Catalytic activity/Vol] 102 U/L High <30 [facility] Comment on above: Performed By: #### Joseph AB17, EBE152, [id number] ####In House Cra: CHELSIE ISAACS ([id number])[facility] ([facility])[address] [place] [address] Anion gap [Moles/Vol] 9 mmol/L Normal 3-13 [facility] Comment on above: Performed By: #### L AB17, [id number], [id number] ####In House Cra: CHELSIE ISAACS ([id number])[facility])[address] [place] [address] AST [Catalytic activity/Vol] 130 U/L High <34 [facility] Comment on above: Performed By: #### L AB17, HVI567, [id number] ####In House Cra: CHELSIE ISAACS ([id number])[facility])[address] [place] [address] Bilirubin [Mass/Vol] 0.7 mg/dL Normal <1.2 [facility] Comment on above: Performed By: #### L AB17, CST842, WMH691 ####In House Cra: CHELSIE ISAACS ([id number])[facility] ([facility])[address] [place] [address] Calcium [Mass/Vol] 8.7 mg/dL Low 8.8-10.0 [facility] Comment on above: Performed By: #### Joseph AB17, [id number], [id number] ####In House Cra: CHELSIE ISAACS ([id number])[facility] ([facility])[address] [place] [address] Chloride [Moles/Vol] 109 mmol/L High 98-107 [facility] Comment on above: Performed By: #### L AB17, [id number], [id number] ####In House Cra: CHELSIE ISAACS ([id number])[facility] ([facility])[address] [place] [address] [place] CO2 [Moles/Vol] 19 mmol/L Low 23-31 [facility] Comment on above: Performed By: #### L AB17, [id number], [id number] ####In House Cra: CHELSIE ISAACS ([id number])[facility] ([facility])[address] [place] [address] Creatinine [Mass/Vol] 1.10 mg/dL Normal 0.57-1.11 [facility] Comment on above: Performed By: #### L AB17, [id number], [id number] ####In House Cra: CHELSIE ISAACS ([id number])[facility])[address] [place] [address] [place] GLOMERULAR FILTRATION RATE ML/MIN/1.73 SQ M.PREDICTED 51.5 mL/min/1.73m*2 Low >60.0 [facility] Comment on above: Result Comment: Calc ulation based on the Chronic Kidney Disease Epidemiology Collaboration (CKD-EPI) equation refit without adjustment for race Performed By: #### L AB17, [id number], [id number] ####In House Cra: CHELSIE ISAACS ([id number])[facility])[address] [place] [address] Glucose [Mass/Vol] 114 mg/dL Normal 82-115 [facility] Comment on above: Performed By: #### L AB17, [id number], [id number] ####In House Cra: CHELSIE ISAACS ([id number])[facility])[address] [place] [address] Potassium [Moles/Vol] 4.2 mmol/L Normal 3.5-5.1 [facility] Comment on above: Result Comment: [facility] potassium values may be up to 0.5 mmol/L lower than serum values. Performed By: #### Joseph AB17, [id number], [id number] ####In House Cra: CHELSIE ISAACS ([id number])[facility] ([facility])[address] [place] [address] Protein [Mass/Vol] 5.8 g/dL Low 6.4-8.3 [facility] Comment on above: Performed By: #### L AB17, [id number], [id number] ####In House Cra: CHELSIE ISAACS ([id number])[facility])[address] [place] [address] [place] Sodium [Moles/Vol] 137 mmol/L Normal 136-145 [facility] Comment on above: Performed By: #### L AB17, [id number], [id number] ####In House Cra: CHELSIE ISAACS ([id number])[facility])[address] [place] [address] [place] Urea nitrogen [Mass/Vol] 35 mg/dL High 9-23 [facility] Comment on above: Performed By: #### L AB17, [id number], [id number] ####In House Cra: CHELSIE ISAACS ([id number])[facility])[address] [place] [address] Calcium.ionized [Moles/Vol]O rdered By: Darby Garcia on 01-15-2025 Calcium.ionized (Bld) [Moles/Vol] 4.4 mg/dL 4.30 - 5.20 mg/dL [facility] Interpretation and review of laboratory results Abnormal [facility] PH, IONIZED CALCIUM 7.47 High 7.31 - 7.46 [facility] Comprehensive metabolic 1998 panelon 01-15-2025 Albumin [Mass/Vol] 3.6 g/dL 3.4 - 4.8 g/dL [facility] ALP [Catalytic activity/Vol] 78 U/L 40 - 150 U/L [facility] ALT [Catalytic activity/Vol] 102 U/L High NINF - 30 U/L [facility] Anion gap [Moles/Vol] 9 mmol/L 3 - 13 mmol/L [facility] AST [Catalytic activity/Vol] 130 U/L High NINF - 34 U/L [facility] Bilirubin [Mass/Vol] 0.7 mg/dL NINF - 1.2 mg/dL [facility] Calcium [Mass/Vol] 8.7 mg/dL Low 8.8 - 10. 0 mg/dL [facility] Chloride [Moles/Vol] 109 mmol/L High 98 - 10 7 mmol/L [facility] CO2 [Moles/Vol] 19 mmol/L Low 23 - 31 mmol/L [facility] Creatinine [Mass/Vol] 1.1 mg/dL 0.57 - 1.11 mg/dL [facility] GFR/1.73 sq M.predicted (S/P/Bld) [Vol rate/Area] 51.5 mL/min Low - PINF [facility] Glucose [Mass/Vol] 114 mg/dL 82 - 115 mg/dL [facility] Interpretation and review of laboratory results Abnormal [facility] Potassium [Moles/Vol] 4.2 mmol/L 3.5 - 5.1 mmol/L [facility] Protein [Mass/Vol] 5.8 g/dL Low 6.4 - 8.3 g/dL [facility] Sodium [Moles/Vol] 137 mmol/L 136 - 145 mmol/L [facility] Urea nitrogen [Mass/Vol] 35 mg/dL High 9 - 23 mg/d L [facility] ECG 12-LEADon 01-15-2025 ECG 12-LEAD IMPRESSION: Sinus rhythm PACs Nonspecific T abnormalities, diffuse leads Electronically Signed On 01-15-2025 17:06:06 EDT by Tom Cox [facility] ECG 12-LEAD IMPRESSION: Sinus rhythm Atrial premature complex Borderline T abnormalities, diffuse leads Electronically Signed On 01-15-2025 17:03:40 [facility] IMPRESSION: Sinus rhythm Nonspecific T abnormalities, inferior leads Electronically Signed On 01-15-2025 17:00:38 EDT by [facility] - Chemistry and C hemistry - challengeon 01-15-2025 Magnesium [Mass/Vol] 2.1 mg/dL 1.6 - 2 .6 mg/dL [facility] MAGNESIUMon 01-15-2025 Magnesium [Mass/Vol] 2.1 mg/dL Normal 1.6-2.6 [facility] Comment on above: Result Comment: SHARA Hand COMMENTS:Higher values can be expected in females during menses. Performed By: #### L AB17, [id number], [id number] ####In House Cra: CHELSIE ISAACS ([id number])[facility] ([address] Magnesium [Mass/Vol]on 01-15 [facility] No Panel Informationon 01-15 [place] 69 degrees [facility] MD Interval 129 ms [facility] QRS [place] 11 degrees [facility] QRSD Interval 97 ms [facility] QT Interval [address] [facility] QTC Interval [address] [facility] T [place] -39 degrees [facility] CV EPIPHANY [facility] P [place] 70 degrees [facility] MD Interval 129 ms [facility] QRS [place] 16 degrees [facility] QRSD Interval 95 ms [facility] QT Interval 383 ms [facility] QTC Interval 476 ms [facility] T [place] -31 degrees [facility] CV EPIPHANY [facility] P [place] 81 degrees [facility] MD Interval 143 ms [facility] QRS [place] 30 degrees [facility] QRSD Interval 93 ms [facility] QT Interval 370 ms [facility] QTC Interval 464 ms [facility] [place] -29 degrees [facility] CV EPIPHANY [facility] Interpretation and review of laboratory results Normal [facility] Blood Expiration Date [id number] S [facility] Blood Expiration Date [id number] [facility] Crossmatch interpretation COMP [facility] Dispense Status Transfused [facility] Disp[facility] Status Released from Crossmatch [facility] Product Blood Type 6200 [facility] PRODUCT CODE [id number] [facility] Unit ABO A [facility] Unit Number [id number] [facility] Number [id number] [facility] Number [id number] [facility] Number [id number] [facility] RH Positive [facility] Unit Volume 300 mL [facility] Nursing Noteon 01-15-2025 Nursing Note Normal [facility] PHOSPHORUSon 01-15-2025 Phosphate [Mass/Vol] 2.7 mg/dL Normal 2.3-4.7 [facility] Comment on above: Performed By: #### L AB17, [id number], [id number] ####In House Cra: CHELSIE ISAACS ([id number])[facility] ([address] Phosphate [Moles/Vol]on Phosphate [Mass/Vol] 2.7 mg/dL 2.3 - 4 .7 mg/dL [facility] Progress Noteon 01-15-2025 Progress Note Normal [facility] Progress Note Normal [facility] Progress Note Normal [facility] Vital signson 01-15-2025 Heart rate 94 /min bpm [facility] Heart rate 93 /min bpm [facility] Heart rate 94 /min bpm [facility] XR CHEST 1 VIEWon 01-15-2025 XR CHEST 1 VIEW Normal [facility] XR CHEST 1 VIEW Normal [facility] XR Chest Single viewon 01-15 [facility] Radiology Study observation (narrative) Leda Muñoz alth [facility] Radiology Study observation (narrative) Leda Muñoz alth XR Chest Single viewOrdered By: José Miguel Sheffield on 01-15-2025 [facility] Work Phone: 30on 01-14-2025 30 Normal [facility] [id number] 01-14-2025 [id number] Normal [facility] APTTon 01-14-2025 aPTT Coag (Bld) [Time] 40.7 s High 20.0-30.5 [facility] Comment on above: Result Comment: SHARA Hand COMMENTS:NOTE: The therapeutic time for Heparin anticoagulation, based on Xa activity inhibition, is an APTT of 46-80 seconds. Performed By: #### L AB325 ####In House Cra: CHELSIE ISAACS ([id number])[facility])[address] [place] [address] aPTT Coag (Bld) [Time] 43.3 s High 20.0-30.5 [facility] Comment on above: Result Comment: SHARA Hand COMMENTS:NOTE: The therapeutic time for Heparin anticoagulation, based on Xa activity inhibition, is an APTT of 46-80 seconds. Performed By: #### L AB325 ####In House Cra: CHELSIE ISAACS ([id number])[facility] ([facility])[address] [place] [address] BASIC METABOLIC PANELon 06 Anion gap [Moles/Vol] 8 mmol/L Normal 3-13 [facility] Comment on above: Performed By: #### L AB15 ####In House Cra: CHELSIE ISAACS ([id number])[facility] ([facility])[address] [place] [address] Calcium [Mass/Vol] 8.7 mg/dL Low 8.8-10.0 [facility] Comment on above: Performed By: #### L AB15 ####In House Cra: CHELSIE [id number])[facility] ([facility])[address] [place] [address] Chloride [Moles/Vol] 108 mmol/L High 98-107 [facility] Comment on above: Performed By: #### L AB15 ####In House Cra: CHELSIE [id number])[facility] [place] [address] [place] CO2 [Moles/Vol] 21 mmol/L Low 23-31 [facility] Comment on above: Performed By: #### L AB15 ####In House Cra: CHELSIE ISAACS ([id number])[facility] ([facility])[address] [place] [address] Creatinine [Mass/Vol] 1.07 mg/dL Normal 0.57-1.11 [facility] Comment on above: Performed By: #### L AB15 ####In House Cra: CHELSIE ISAACS ([id number])[facility])[address] [place] [address] GLOMERULAR FILTRATION RATE ML/MIN/1.73 SQ M.PREDICTED 53.3 mL/min/1.73m*2 Low >60.0 [facility] Comment on above: Result Comment: Calc ulation based on the Chronic Kidney Disease Epidemiology Collaboration (CKD-EPI) equation refit without adjustment for race Performed By: #### L AB15 ####In House Cra: CHELSIE ISAACS ([id number])[facility] ([facility])[address] [place] [address] Glucose [Mass/Vol] 123 mg/dL High 82-115 [facility] Comment on above: Performed By: #### L AB15 ####In House Cra: CHELSIE ISAACS ([id number])[facility])[address] [place] [address] Potassium [Moles/Vol] 4.1 mmol/L Normal 3.5-5.1 [facility] Comment on above: Result Comment: [facility] potassium values may be up to 0.5 mmol/L lower than serum values. Performed By: #### L AB15 ####In House Cra: CHELSIE ISAACS ([id number])[facility])[address] [place] [address] Sodium [Moles/Vol] 137 mmol/L Normal 136-145 [facility] Comment on above: Performed By: #### L AB15 ####In House Cra: CHELSIE ISAACS ([id number])[facility] [place] [address] [place] Urea nitrogen [Mass/Vol] 24 mg/dL High 9-23 [facility] Comment on above: Performed By: #### L AB15 ####In House Cra: CHELSIE ISAACS ([id number])[facility])[address] Anion gap [Moles/Vol] 10 mmol/L Normal 3-13 [facility] Comment on above: Performed By: #### L AB15, [id number] ####In House Cra: CHELSIE ISAACS ([id number])[facility] ([facility])[address] [place] [address] Calcium [Mass/Vol] 8.5 mg/dL Low 8.8-10.0 [facility] Comment on above: Performed By: #### L AB15, [id number] ####In House Cra: CHELSIE ISAACS ([id number])[facility])[address] [place] [address] [place] Chloride [Moles/Vol] 108 mmol/L High 98-107 [facility] Comment on above: Performed By: #### L AB15, [id number] ####In House Cra: CHELSIE ISAACS ([id number])[facility])[address] [place] [address] [place] CO2 [Moles/Vol] 20 mmol/L Low 23-31 [facility] Comment on above: Performed By: #### L AB15, [id number] ####In House Cra: CHELSIE ISAACS ([id number])[facility])[address] [place] [address] [place] Creatinine [Mass/Vol] 1.19 mg/dL High 0.57-1.11 [facility] Comment on above: Performed By: #### L AB15, [id number] ####In House Cra: CHELSIE ISAACS ([id number])[facility] ([facility])[address] [place] [address] [place] GLOMERULAR FILTRATION RATE ML/MIN/1.73 SQ M.PREDICTED 46.9 mL/min/1.73m*2 Low >60.0 [facility] Comment on above: Result Comment: Calc ulation based on the Chronic Kidney Disease Epidemiology Collaboration (CKD-EPI) equation refit without adjustment for race Performed By: #### L AB15, [id number] ####In House Cra: CHELSIE ISAACS ([id number])[facility])[address] [place] [address] Glucose [Mass/Vol] 137 mg/dL High 82-115 [facility] Comment on above: Performed By: #### L AB15, [id number] ####In House Cra: CHELSIE ISAACS ([id number])[address] Potassium [Moles/Vol] 3.3 mmol/L Low 3.5-5.1 [facility] Comment on above: Result Comment: [facility] potassium values may be up to 0.5 mmol/L lower than serum values. Performed By: #### L AB15, [id number] ####In House Cra: CHELSIE ISAACS ([id number])[facility] ([facility])[address] [place] [address] Sodium [Moles/Vol] 138 mmol/L Normal 136-145 [facility] Comment on above: Performed By: #### L AB15, [id number] ####In House Cra: CHELSIE ISAACS ([id number])[facility])[address] [place] [address] Urea nitrogen [Mass/Vol] 21 mg/dL Normal 9-23 [facility] Comment on above: Performed By: #### L AB15, [id number] ####In House Cra: CHELSIE ISAACS ([id number])[facility])[address] [place] [address] Basic metabolic 1998 panelon 01-14-2025 Anion gap [Moles/Vol] 8 mmol/L 3 - 13 mmol/L [facility] Calcium [Mass/Vol] 8.7 mg/dL Low 8.8 - 10. 0 mg/dL [facility] Chloride [Moles/Vol] 108 mmol/L High 98 - 10 7 mmol/L [facility] CO2 [Moles/Vol] 21 mmol/L Low 23 - 31 mmol/L [facility] Creatinine [Mass/Vol] 1.07 mg/dL 0.57 - 1.11 mg/dL [facility] GFR/1.73 sq M.predicted (S/P/Bld) [Vol rate/Area] 53.3 mL/min Low - PINF [facility] Glucose [Mass/Vol] 123 mg/dL High 82 - 115 mg/dL [facility] Interpretation and review of laboratory results Abnormal [facility] Potassium [Moles/Vol] 4.1 mmol/L 3.5 - 5.1 mmol/L [facility] Sodium [Moles/Vol] 137 mmol/L 136 - 145 mmol/L [facility] Urea nitrogen [Mass/Vol] 24 mg/dL High 9 - 23 mg/d L [facility] Anion gap [Moles/Vol] 10 mmol/L 3 - 13 mmol/L [facility] Calcium [Mass/Vol] 8.5 mg/dL Low 8.8 - 10. 0 mg/dL [facility] Chloride [Moles/Vol] 108 mmol/L High 98 - 10 7 mmol/L [facility] CO2 [Moles/Vol] 20 mmol/L Low 23 - 31 mmol/L [facility] Creatinine [Mass/Vol] 1.19 mg/dL High 0.57 - 1.11 mg/dL [facility] GFR/1.73 sq M.predicted (S/P/Bld) [Vol rate/Area] 46.9 mL/min Low - PINF [facility] Glucose [Mass/Vol] 137 mg/dL High 82 - 115 mg/dL [facility] Interpretation and review of laboratory results Abnormal [facility] Potassium [Moles/Vol] 3.3 mmol/L Low 3.5 - 5.1 mmol/L [facility] Sodium [Moles/Vol] 138 mmol/L 136 - 145 mmol/L [facility] Urea nitrogen [Mass/Vol] 21 mg/dL 9 - 23 mg/d L [facility] CALCIUM, IONIZEDon 5 CALCIUM IONIZED 4.40 mg/dL Normal 4.30-5.20 [facility] Comment on above: Performed By: #### L AB54 ####In House Cra: CHELSIE ISAACS ([id number])[facility])[address] [place] [address] PH, IONIZED CALCIUM 7.45 Normal 7.31-7.46 [facility] Comment on above: Performed By: #### L AB54 ####In House Cra: CHELSIE ISAACS ([id number])[facility])[address] [place] [address] CBC (HEMOGRAM)on 01-14-2025 Erythrocyte distribution width (RBC) [Ratio] 16.0 % High 11.5-15.0 [facility] Comment on above: Performed By: #### L AB294 ####In House Cra: CHELSIE ISAACS ([id number])[facility])[address] [place] [address] Hematocrit (Bld) [Volume fraction] 24.3 % Low 35.0-47.0 [facility] Comment on above: Performed By: #### L AB294 ####In House Cra: CHELSIE ISAACS ([id number])[address] Hemoglobin (Bld) [Mass/Vol] 7.9 g/dL Low 11.7-16.0 [facility] Comment on above: Performed By: #### L AB294 ####In House Cra: CHELSIE ISAACS ([id number])[facility])[address] [place] [address] IPF 4 Normal [facility] Comment on above: Performed By: #### L AB294 ####In House Cra: CHELSIE ISAACS ([id number])[facility])[address] [place] [address] MCH (RBC) [Entitic mass] 29.2 pg Normal 26.0-34.0 [facility] Comment on above: Performed By: #### L AB294 ####In House Cra: CHELSIE ISAACS ([id number])[facility])[address] [place] [address] MCHC 32.5 % Normal 30.5-36.0 [facility] Comment on above: Performed By: #### L AB294 ####In House Cra: CHELSIE ISAACS ([id number])[facility] ([facility])[address] [place] [address] MCV (RBC) [Entitic vol] 89.7 fL Normal 77.0-99.0 [facility] Comment on above: Performed By: #### L AB294 ####In House Cra: CHELSIE ISAACS ([id number])[facility] ([facility])[address] [place] [address] Platelet mean volume (Bld) [Entitic vol] 11.1 fL Normal 9.0-12.7 [facility] Comment on above: Performed By: #### L AB294 ####In House Cra: CHELSIE ISAACS ([id number])[facility] ([facility])[address] [place] [address] Platelets (Bld) [#/Vol] 86 10*3/uL Low 140-440 [facility] Comment on above: Performed By: #### L AB294 ####In House Cra: CHELSIE ISAACS ([id number])[facility])[address] [place] [address] RBC (Bld) [#/Vol] 2.71 10*6/uL Low 3.80-5.20 [facility] Comment on above: Performed By: #### L AB294 ####In House Cra: CHELSIE ISAACS ([id number])[facility] ([facility])[address] [place] [address] WBC (Bld) [#/Vol] 8.4 10*3/uL Normal 3.6-10.7 [facility] Comment on above: Performed By: #### L AB294 ####In House Cra: CHELSIE ISAACS ([id number])[facility])[address] [place] [address] CBC panel Auto (Bld)on 01-14 Erythrocyte distribution width (RBC) [Ratio] 16 % High 11.5 - 15.0 % [facility] Hematocrit (Bld) [Volume fraction] 24.3 % Low 35.0 - 47.0 % [facility] Hemoglobin (Bld) [Mass/Vol] 7.9 g/dL Low 11.7 - 16.0 g/dL [facility] Interpretation and review of laboratory results Abnormal [facility] IPF 4 [facility] MCH (RBC) [Entitic mass] 29.2 pg 26. 0 - 34.0 pg [facility] MCHC (RBC) [Mass/Vol] 32.5 % 30.5 - 36.0 % [facility] MCV (RBC) [Entitic vol] 89.7 fL 77.0 - 99.0 fL [facility] Platelet mean volume (Bld) [Entitic vol] 11.1 fL 9.0 - 12.7 fL [facility] Platelets (Bld) [#/Vol] 86 10*3/uL Low 140 - 440 10*3/uL [facility] RBC (Bld) [#/Vol] 2.71 10*6/uL Low 3.80 - 5.2 0 10*6/uL [facility] WBC (Bld) [#/Vol] 8.4 10*3/uL 3.6 - 10.7 10*3/uL [facility] Calcium.ionized [Moles/Vol]o n 01-14-2025 Calcium.ionized (Bld) [Moles/Vol] 4.4 mg/dL 4.30 - 5.20 mg/dL [facility] Interpretation and review of laboratory results Normal [facility] PH, IONIZED CALCIUM 7.45 7.31 - 7.46 [facility] ECG 12-LEADon 01-14-2025 ECG 12-LEAD IMPRESSION: Sinus rhythm Low voltage, precordial leads Borderline T abnormalities, diffuse leads Electronically Signed On 01-14-2025 08:11:46 EDT by Paxton Valentin Normal [facility] Laboratory - Chemistry and C hemistry - challengeon 01-14-2025 Potassium [Moles/Vol] 3.6 mmol/L 3.5 - 5.1 mmol/L [facility] Glucose [Mass/Vol] 156 mg/dL High 70 - 100 mg/dL [facility] Magnesium [Mass/Vol] 2 mg/dL 1.6 - 2 .6 mg/dL [facility] [employer] MAGNESIUMon 01-14-2025 Magnesium [Mass/Vol] 2.0 mg/dL Normal 1.6-2.6 [facility] Comment on above: Result Comment: SHARA Hand COMMENTS:Higher values can be expected in females during menses. Performed By: #### L AB15, [id number] ####In House Cra: CHELSIE ISAACS ([id number])[facility] [employer] [facility])[address] [place] [address] Magnesium [Mass/Vol]on 01-14 Interpretation and review of laboratory results Normal [facility] No Panel Informationon 01-14 [facility] Radiology Study observation (narrative) [facility] Interpretation and review of laboratory results Abnormal [facility] No Panel InformationOrdered By: Ana Maria Lamb on 01-14-2025 [facility] Work Phone: No Panel InformationOrdered By: Paxton Valentin on 01-14-2025 [place] 19 degrees [facility] Work Phone: MD Interval 190 ms [facility] Work Phone: QRS [place] 16 degrees [facility] Work Phone: QRSD Interval 94 ms [facility]alt [facility] Work Phone: QT Interval 400 ms [facility] Work Phone: QTC Interval 471 ms [facility] Work Phone: T Wave [place] -32 degrees [facility] Work Phone: [facility] Work Phone: PHOSPHORUSon 01-14-2025 Phosphate [Mass/Vol] 3.1 mg/dL Normal 2.3-4.7 [facility] Comment on above: Performed By: #### L AB114, [id number] ####In House Cra: CHELSIE ISAACS ([id number])[facility] [place] [address] [place] POTASSIUMon 01-14-2025 Potassium [Moles/Vol] 3.6 mmol/L Normal 3.5-5.1 [facility] Comment on above: Order Comment: PRN p ost potassium replacement Result Comment: [facility] potassium values may be up to 0.5 mmol/L lower than serum values. Performed By: #### L [id number], [id number] ####In House Cra: CHELSIE ISAACS ([id number])[facility] ([id number] Phosphate [Moles/Vol]on Interpretation and review of laboratory results Normal [facility] Phosphate [Mass/Vol] 3.1 mg/dL 2.3 - 4 .7 mg/dL [facility] Potassium [Moles/Vol]on Interpretation and review of laboratory results Normal [facility] Progress Noteon 01-14-2025 Progress Note [facility] Progress Note Normal [facility] Progress [facility] Normal [facility] Progress Note Normal [facility] Progress Note Normal [facility] US GUIDED THORACENTESISon US GUIDED THORACENTESIS Normal [facility] Vital signsOrdered By: Paxton Valentin on 01-14-2025 Heart rate 83 /min bpm [facility] [employer] Phone: XR ABDOMEN 1 VIEWon 01-15-20 25 XR ABDOMEN 1 VIEW Normal [facility] XR Abdomen Single viewon [facility] Radiology Study observation (narrative) [facility] XR Abdomen Single viewOrdere d By: Sami Gonzales on 01-14-2025 [facility] [employer] Phone: XR CHEST 1 VIEWon 01-14-2025 XR CHEST 1 VIEW Normal [facility] XR Chest Single viewon 01-14 [facility] Radiology Study observation (narrative) [facility] Mu[facility]oz alth XR Chest Single viewOrdered By: Nba Nichols on 01-14-2025 [facility] [employer] Phone: aPTT Coag (Bld) [Time]on aPTT Coag (PPP) [Time] 40.7 s High 20.0 - 30.5 s [facility] Interpretation and review of laboratory results Abnormal [facility] aPTT Coag (PPP) [Time] 43.3 s High 20.0 - 30.5 s [facility] Interpretation and review of laboratory results Abnormal [facility] BASIC METABOLIC PANELon 06-0 Anion gap [Moles/Vol] 10 mmol/L Normal 3-13 [facility] Comment on above: Performed By: #### L AB15 ####In House Cra: CHELSIE ISAACS ([id number])[facility] ([facility])[address] [place] [address] Calcium [Mass/Vol] 8.5 mg/dL Low 8.8-10.0 [facility] Comment on above: Performed By: #### L AB15 ####In House Cra: CHELSIE ISAACS ([id number])[facility] ([facility])[address] [place] [address] Chloride [Moles/Vol] 108 mmol/L High 98-107 [facility] Comment on above: Performed By: #### L AB15 ####In House Cra: CHELSIE ISAACS ([id number])[facility] ([facility])[address] [place] [address] CO2 [Moles/Vol] 20 mmol/L Low 23-31 [facility] Comment on above: Performed By: #### L AB15 ####In House Cra: CHELSIE ISAACS ([id number])[facility] ([facility])[address] [place] [address] Creatinine [Mass/Vol] 1.19 mg/dL High 0.57-1.11 [facility] Comment on above: Performed By: #### L AB15 ####In House Cra: CHELSIE ISAACS ([id number])[facility] ([facility])[address] [place] [address] GLOMERULAR FILTRATION RATE ML/MIN/1.73 SQ M.PREDICTED 46.9 mL/min/1.73m*2 Low >60.0 [facility] Comment on above: Result Comment: Calc ulation based on the Chronic Kidney Disease Epidemiology Collaboration (CKD-EPI) equation refit without adjustment for race Performed By: #### L AB15 ####In House Cra: CHELSIE ISAACS ([id number])[facility] ([facility])[address] [place] [address] Glucose [Mass/Vol] 144 mg/dL High 82-115 [facility] Comment on above: Performed By: #### L AB15 ####In House Cra: CHELSIE ISAACS ([id number])[facility] ([facility])[address] [place] [address] Potassium [Moles/Vol] 3.3 mmol/L Low 3.5-5.1 [facility] Comment on above: Result Comment: [facility] potassium values may be up to 0.5 mmol/L lower than serum values. Performed By: #### L AB15 ####In House Cra: CHELSIE ISAACS ([id number])[facility] ([facility])[address] [place] [address] [place] Sodium [Moles/Vol] 138 mmol/L Normal 136-145 [facility] Comment on above: Performed By: #### L AB15 ####In House Cra: CHELSIE ISAACS ([id number])[facility])[address] [place] [address] [place] Urea nitrogen [Mass/Vol] 22 mg/dL Normal 9-23 [facility] Comment on above: Performed By: #### L AB15 ####In House Cra: CHELSIE ISAACS ([id number])[facility])[address] [place] [address] Anion gap [Moles/Vol] 9 mmol/L Normal 3-13 [facility] Comment on above: Performed By: #### L AB15, [id number] ####In House Cra: CHELSIE ISAACS ([id number])[facility])[address] [place] [address] [place] Calcium [Mass/Vol] 8.9 mg/dL Normal 8.8-10.0 [facility] Comment on above: Performed By: #### L AB15, [id number] ####In House Cra: CHELSIE ISAACS ([id number])[facility] ([facility])[address] [place] [address] Chloride [Moles/Vol] 113 mmol/L High 98-107 [facility] Comment on above: Performed By: #### L AB15, [id number] ####In House Cra: CHELSIE ISAACS ([id number])[facility] ([facility])[address] [place] [address] CO2 [Moles/Vol] 20 mmol/L Low 23-31 [facility] Comment on above: Performed By: #### L AB15, [id number] ####In House Cra: CHELSIE ISAACS ([id number])[facility] ([facility])[address] [place] [address] Creatinine [Mass/Vol] 0.83 mg/dL Normal 0.57-1.11 [facility] Comment on above: Performed By: #### L AB15, [id number] ####In House Cra: CHELSIE ISAACS ([id number])[facility] ([facility])[address] [place] [address] GLOMERULAR FILTRATION RATE ML/MIN/1.73 SQ M.PREDICTED 72.3 mL/min/1.73m*2 Normal >60.0 [facility] Comment on above: Result Comment: Calc ulation based on the Chronic Kidney Disease Epidemiology Collaboration (CKD-EPI) equation refit without adjustment for race Performed By: #### L AB15, [id number] ####In House Cra: CHELSIE ISAACS ([id number])[facility] ([facility] [place] [address] [place] Glucose [Mass/Vol] 155 mg/dL High 82-115 [facility] Comment on above: Performed By: #### L AB15, [id number] ####In House Cra: CHELSIE ISAACS ([id number])[facility] ([facility])[address] [place] [address] [place] Potassium [Moles/Vol] 4.4 mmol/L Normal 3.5-5.1 [facility] Comment on above: Result Comment: [facility] potassium values may be up to 0.5 mmol/L lower than serum values. Performed By: #### L AB15, [id number] ####In House Cra: CHELSIE ISAACS ([id number])[facility] ([facility])[address] [place] [address] Sodium [Moles/Vol] 142 mmol/L Normal 136-145 [facility] Comment on above: Performed By: #### L AB15, [id number] ####In House Cra: CHELSIE ISAACS ([id number])[facility] ([facility])[address] [place] [address] Urea nitrogen [Mass/Vol] 19 mg/dL Normal 9-23 [facility] Comment on above: Performed By: #### L AB15, [id number] ####In House Cra: CHELSIE ISAACS ([id number])[facility])[address] [place] [address] BLOOD GAS ARTERIALon 025 AMOUNT OF OXYGEN 4lt Normal [facility] Comment on above: Order Comment: 30 mi n after vent changes Performed By: #### L AB76 ####In House Cra: CHELSIE ISAACS ([id number])[facility])[address] [place] [address] Base excess Calc (Bld) [Moles/Vol] -8.8000 mmol/L Low -3.0-3.0 [facility] Comment on above: Order Comment: 30 mi n after vent changes Performed By: #### L AB76 ####In House Cra: CHELSIE IASACS ([id number])[facility] ([facility])[address] [place] [address] CO2 [Moles/Vol] 15.9 mmol/L Low 23.0-27.0 [facility] Comment on above: Order Comment: 30 mi n after vent changes Performed By: #### L AB76 ####In House Cra: CHELSIE ISAACS ([id number])[facility])[address] [place] [address] HCO3 (Bld) [Moles/Vol] 15.1 mmol/L Low 21.0-25.0 [facility] Comment on above: Order Comment: 30 mi n after vent changes Performed By: #### L AB76 ####In House Cra: CHELSIE ISAACS ([id number])[facility] ([facility])[address] [place] [address] Hemoglobin (Bld) [Mass/Vol] 7.6 g/dL Normal Screen only [facility] Comment on above: Order Comment: 30 mi n after vent changes Performed By: #### L AB76 ####In House Cra: CHELSIE ISAACS ([id number])[facility] ([facility])[address] [place] [address] OXYGEN SATURATION (%) IN ARTERIAL BLOOD 97.2 % Normal 95.0-100.0 [facility] Comment on above: Order Comment: 30 mi n after vent changes Performed By: #### L AB76 ####In House Cra: CHELSIE ISAACS ([id number])[facility] ([facility])[address] [place] [address] PCO2 ARTERIAL 25.4 mm Hg Low >35.0-<45.0 [facility] Comment on above: Order Comment: 30 mi n after vent changes Performed By: #### L AB76 ####In House Cra: CHELSIE ISAACS ([id number])[facility] ([facility])[address] [place] [address] PH ARTERIAL 7.392 Normal 7.350-7.450 [facility] Comment on above: Order Comment: 30 mi n after vent changes Performed By: #### L AB76 ####In House Cra: CHELSIE ISAACS ([id number])[facility] ([facility])[address] [place] [address] PO2 ARTERIAL 108.8 mm Hg High 80.0-100.0 [facility] Comment on above: Order Comment: 30 mi n after vent changes Performed By: #### L AB76 ####In House Cra: CHELSIE ISAACS ([id number])[facility] ([facility])[address] [place] [address] SOURCE OF OXYGEN Nasal Cannula (LPM) Normal [facility] Comment on above: Order Comment: 30 mi n after vent changes Performed By: #### L AB76 ####In House Cra: CHELSIE ISAACS ([id number])[facility] ([facility])[address] [place] [address] Basic metabolic 1997 panelOr dered By: Nba Dexter on 01-13-2025 Anion gap [Moles/Vol] 10 mmol/L 3 - 13 mmol/L [facility] Calcium [Mass/Vol] 8.5 mg/dL Low 8.8 - 10. 0 mg/dL [facility] Chloride [Moles/Vol] 108 mmol/L High 98 - 10 7 mmol/L [facility] CO2 [Moles/Vol] 20 mmol/L Low 23 - 31 mmol/L [facility] Creatinine [Mass/Vol] 1.19 mg/dL High 0.57 - 1.11 mg/dL [facility] GFR/1.73 sq M.predicted (S/P/Bld) [Vol rate/Area] 46.9 mL/min Low - PINF [facility] Glucose [Mass/Vol] 144 mg/dL High 82 - 115 mg/dL [facility] Interpretation and review of laboratory results Abnormal [facility] Potassium [Moles/Vol] 3.3 mmol/L Low 3.5 - 5.1 mmol/L [facility] Sodium [Moles/Vol] 138 mmol/L 136 - 145 mmol/L [facility] Urea nitrogen [Mass/Vol] 22 mg/dL 9 - 23 mg/d L [facility] Basic metabolic 1998 panelon 01-13-2025 Anion gap [Moles/Vol] 9 mmol/L 3 - 13 mmol/L [facility] Calcium [Mass/Vol] 8.9 mg/dL 8.8 - 10. 0 mg/dL [facility] Chloride [Moles/Vol] 113 mmol/L High 98 - 10 7 mmol/L [facility] CO2 [Moles/Vol] 20 mmol/L Low 23 - 31 mmol/L [facility] Creatinine [Mass/Vol] 0.83 mg/dL 0.57 - 1.11 mg/dL [facility] GFR/1.73 sq M.predicted (S/P/Bld) [Vol rate/Area] 72.3 mL/min - PINF [facility] Glucose [Mass/Vol] 155 mg/dL High 82 - 115 mg/dL [facility] Interpretation and review of laboratory results Abnormal [facility] Potassium [Moles/Vol] 4.4 mmol/L 3.5 - 5.1 mmol/L [facility] Sodium [Moles/Vol] 142 mmol/L 136 - 145 mmol/L [facility] Urea nitrogen [Mass/Vol] 19 mg/dL 9 - 23 mg/d L [facility] CBC (HEMOGRAM)on 01-13-2025 Erythrocyte distribution width (RBC) [Ratio] 16.0 % High 11.5-15.0 [facility] Comment on above: Performed By: #### L [id number] ####In House Cra: CHELSIE ISAACS ([id number])[facility])[address] [place] [address] Hematocrit (Bld) [Volume fraction] 23.2 % Low 35.0-47.0 [facility] Comment on above: Performed By: #### L [id number] ####In House Cra: CHELSIE ISAACS ([id number])[facility])[address] [place] [address] Hemoglobin (Bld) [Mass/Vol] 7.8 g/dL Low 11.7-16.0 [facility] Comment on above: Performed By: #### L [id number] ####In House Cra: CHELSIE ISAACS ([id number])[facility])[address] [place] [address] [place] IPF 4 Normal [facility] Comment on above: Performed By: #### L [id number] ####In House Cra: CHELSIE ISAACS ([id number])[facility])[address] [place] [address] MCH (RBC) [Entitic mass] 29.9 pg Normal 26.0-34.0 [facility] Comment on above: Performed By: #### L [id number] ####In House Cra: CHELSIE ISAACS ([id number])[facility])[address] [place] [address] MCHC 33.6 % Normal 30.5-36.0 [facility] Comment on above: Performed By: #### L [id number] ####In House Cra: CHELSIE ISAACS ([id number])[facility] ([facility])[address] [place] [address] MCV (RBC) [Entitic vol] 88.9 fL Normal 77.0-99.0 [facility] Comment on above: Performed By: #### L [id number] ####In House Cra: CHELSIE ISAACS ([id number])[facility] ([facility])[address] [place] [address] Platelet mean volume (Bld) [Entitic vol] 10.7 fL Normal 9.0-12.7 [facility] Comment on above: Performed By: #### L [id number] ####In House Cra: CHELSIE ISAACS ([id number])[facility] ([facility])[address] [place] [address] Platelets (Bld) [#/Vol] 84 10*3/uL Low 140-440 [facility] Comment on above: Performed By: #### L [id number] ####In House Cra: CHELSIE ISAACS ([id number])[facility] ([facility])[address] [place] [address] RBC (Bld) [#/Vol] 2.61 10*6/uL Low 3.80-5.20 [facility] Comment on above: Performed By: #### L [id number] ####In House Cra: CHELSIE ISAACS ([id number])[facility] ([facility])[address] [place] [address] WBC (Bld) [#/Vol] 8.4 10*3/uL Normal 3.6-10.7 [facility] Comment on above: Performed By: #### L [id number] ####In House Cra: CHELSIE ISAACS ([id number])[facility])[address] [place] [address] Erythrocyte distribution width (RBC) [Ratio] 15.2 % High 11.5-15.0 [facility] Comment on above: Performed By: #### L [id number] ####In House Cra: CHELSIE ISAACS ([id number])[address] Hematocrit (Bld) [Volume fraction] 25.4 % Low 35.0-47.0 [facility] Comment on above: Performed By: #### L [id number] ####In House Cra: CHELSIE ISAACS ([id number])[facility])[address] [place] [address] Hemoglobin (Bld) [Mass/Vol] 8.4 g/dL Low 11.7-16.0 [facility] Comment on above: Performed By: #### L [id number] ####In House Cra: CHELSIE ISAACS ([id number])[address] MCH (RBC) [Entitic mass] 29.4 pg Normal 26.0-34.0 [facility] Comment on above: Performed By: #### L [id number] ####In House Cra: CHELSIE ISAACS ([id number])[facility])[address] [place] [address] MCHC 33.1 % Normal 30.5-36.0 [facility] Comment on above: Performed By: #### L [id number] ####In House Cra: CHELSIE ISAACS ([id number])[facility])[address] [place] [address] MCV (RBC) [Entitic vol] 88.8 fL Normal 77.0-99.0 [facility] Comment on above: Performed By: #### L [id number] ####In House Cra: CHELSIE ISAACS ([id number])[address] Platelet mean volume (Bld) [Entitic vol] 10.7 fL Normal 9.0-12.7 [facility] Comment on above: Performed By: #### L [id number] ####In House Cra: CHELSIE ISAACS ([id number])[facility] ([facility])[address] [place] [address] Platelets (Bld) [#/Vol] 126 10*3/uL Low 140-440 [facility] Comment on above: Performed By: #### L [id number] ####In House Cra: CHELSIE ISAACS ([id number])[facility])[address] [place] [address] RBC (Bld) [#/Vol] 2.86 10*6/uL Low 3.80-5.20 [facility] Comment on above: Performed By: #### L [id number] ####In House Cra: CHELSIE ISAACS ([id number])[facility])[address] [place] [address] WBC (Bld) [#/Vol] 8.6 10*3/uL Normal 3.6-10.7 [facility] Comment on above: Performed By: #### L [id number] ####In House Cra: CHELSIE ISAACS ([id number])[facility])[address] [place] [address] CBC panel Auto (Bld)Ordered By: June Ca on 01-13-2025 Erythrocyte distribution width (RBC) [Ratio] 16 % High 11.5 - 15.0 % [facility] Hematocrit (Bld) [Volume fraction] 23.2 % Low 35.0 - 47.0 % [facility] Hemoglobin (Bld) [Mass/Vol] 7.8 g/dL Low 11.7 - 16.0 g/dL [facility] Interpretation and review of laboratory results Abnormal [facility] IPF 4 [facility] MCH (RBC) [Entitic mass] 29.9 pg 26. 0 - 34.0 pg [facility] MCHC (RBC) [Mass/Vol] 33.6 % 30.5 - 36.0 % [facility] MCV (RBC) [Entitic vol] 88.9 fL 77.0 - 99.0 fL [facility] Platelet mean volume (Bld) [Entitic vol] 10.7 fL 9.0 - 12.7 fL [facility] Platelets (Bld) [#/Vol] 84 10*3/uL Low 140 - 440 10*3/uL [facility] RBC (Bld) [#/Vol] 2.61 10*6/uL Low 3.80 - 5.2 0 10*6/uL [facility] WBC (Bld) [#/Vol] 8.4 10*3/uL 3.6 - 10.7 10*3/uL [facility] CBC panel Auto (Bld)Ordered By: Jesus Lema on 01-13-2025 Erythrocyte distribution width (RBC) [Ratio] 15.2 % High 11.5 - 15.0 % [facility] Hematocrit (Bld) [Volume fraction] 25.4 % Low 35.0 - 47.0 % [facility] Hemoglobin (Bld) [Mass/Vol] 8.4 g/dL Low 11.7 - 16.0 g/dL [facility] Interpretation and review of laboratory results Abnormal [facility] MCH (RBC) [Entitic mass] 29.4 pg 26. 0 - 34.0 pg [facility] MCHC (RBC) [Mass/Vol] 33.1 % 30.5 - 36.0 % [facility] MCV (RBC) [Entitic vol] 88.8 fL 77.0 - 99.0 fL [facility] Platelet mean volume (Bld) [Entitic vol] 10.7 fL 9.0 - 12.7 fL [facility] Platelets (Bld) [#/Vol] 126 10*3/uL Low 140 - 440 10*3/uL [facility] RBC (Bld) [#/Vol] 2.86 10*6/uL Low 3.80 - 5.2 0 10*6/uL [facility] WBC (Bld) [#/Vol] 8.6 10*3/uL 3.6 - 10.7 10*3/uL [facility] Consulton 01-13-2025 Consult Normal [facility] Consult Normal [facility] ECG 12-LEADon 01-13-2025 ECG 12-LEAD Normal [facility] ECG 12-LEAD IMPRESSION: Sinus rhythm Low voltage, precordial leads Nonspecific repol abnormality, diffuse leads Electronically Signed On 01-13-2025 10:45:05 EDT by Keegan Hill Normal [facility] Laboratory - Chemistry and C hemistry - challengeon 01-13-2025 Glucose [Mass/Vol] 149 mg/dL High 70 - 100 mg/dL [facility] Glucose [Mass/Vol] 119 mg/dL High 70 - 100 mg/dL [facility] Glucose [Mass/Vol] 98 mg/dL 70 - 100 mg/dL [facility] Glucose [Mass/Vol] 134 mg/dL High 70 - 100 mg/dL [facility] Glucose [Mass/Vol] 129 mg/dL High 70 - 100 mg/dL [facility] Glucose [Mass/Vol] 128 mg/dL High 70 - 100 mg/dL [facility] Glucose [Mass/Vol] 122 mg/dL High 70 - 100 mg/dL [facility] Glucose [Mass/Vol] 129 mg/dL High 70 - 100 mg/dL [facility] Glucose [Mass/Vol] 135 mg/dL High 70 - 100 mg/dL [facility] Glucose [Mass/Vol] 142 mg/dL High 70 - 100 mg/dL [facility] Glucose [Mass/Vol] 152 mg/dL High 70 - 100 mg/dL [facility] Glucose [Mass/Vol] 139 mg/dL High 70 - 100 mg/dL [facility] Glucose [Mass/Vol] 126 mg/dL High 70 - 100 mg/dL [facility] Glucose [Mass/Vol] 135 mg/dL High 70 - 100 mg/dL [facility] Magnesium [Mass/Vol] 2.2 mg/dL 1.6 - 2 .6 mg/dL [facility] Glucose [Mass/Vol] 155 mg/dL High 70 - 100 mg/dL [facility] Glucose [Mass/Vol] 131 mg/dL High 70 - 100 mg/dL [facility] Glucose [Mass/Vol] 83 mg/dL 70 - 100 mg/dL [facility] Laboratory - Chemistry and C hemistry - challengeOrdered By: Sarah Ulloa on 01-13-2025 Base excess Calc (Bld) [Moles/Vol] -8.8000 mmol/L Low -3.0 - 3.0 mmol/L [facility] CO2 (Bld) [Partial pressure] 25.4 mm[Hg] Low - PINF [facility] CO2 [Moles/Vol] 15.9 mmol/L Low 23.0 - 27.0 mmol/L [facility] HCO3 (Bld) [Moles/Vol] 15.1 mmol/L Low 21.0 - 25.0 mmol/L [facility] Oxygen (Bld) [Partial pressure] 108.8 mm[Hg] High [facility] pH (Bld) 7.392 [pH] 7.350 - 7.450 [facility] Laboratory - Coagulationon 0 01-13-2025 aPTT Coag (PPP) [Time] 35.5 s High 20.0 - 30.5 s [facility] INR Coag (PPP) [Relative time] 1.2 {INR} High 0.9 - 1.1 [facility] PT Coag (Bld) [Time] 12.9 s High 9.0 - 12.0 s [facility] - Hematology and Cell countsOrdered By: Sarah Ulloa on 01-13-2025 Hemoglobin (Bld) [Mass/Vol] 7.6 g/dL 7.0 g/dl [facility] MAGNESIUMon 01-13-2025 Magnesium [Mass/Vol] 2.2 mg/dL Normal 1.6-2.6 [facility] Comment on above: Result Comment: SHARA Hand COMMENTS:Higher values can be expected in females during menses. Performed By: #### L AB15, [id number] ####In House Cra: CHELSIE ISAACS ([id number])[address] Magnesium [Mass/Vol]on 01-13 Interpretation and review of laboratory results Normal [facility] No Panel Informationon 01-13 Interpretation and review of laboratory results Abnormal [facility] Interpretation and review of laboratory results Abnormal [facility] Interpretation and review of laboratory results Normal [facility] Interpretation and review of laboratory results Abnormal [facility] CV EPIPHANY [facility] Interpretation and review of laboratory results Abnormal [facility] Interpretation and review of laboratory results Abnormal [facility] Interpretation and review of laboratory results Abnormal [facility] Center Interpretation and review of laboratory results Abnormal [facility] Interpretation and review of laboratory results Abnormal [facility] Interpretation and review of laboratory results Abnormal [facility] Interpretation and review of laboratory results Abnormal [facility] Interpretation and review of laboratory results Abnormal [facility] Interpretation and review of laboratory results Abnormal [facility] Interpretation and review of laboratory results Abnormal [facility] Interpretation and review of laboratory results Abnormal [facility] Interpretation and review of laboratory results Abnormal [facility] Interpretation and review of laboratory results Abnormal [facility] Interpretation and review of laboratory results Normal [facility] No Panel InformationOrdered By: Quincy Lopez on 01-13-2025 P [place] 0 degrees [facility] Work Phone: MD Interval [address] [facility] Work Phone: QRS [place] 9 degrees [facility] Work Phone: QRSD Interval 116 ms [facility] Work Phone: QT Interval [address] [facility] Work Phone: QTC Interval 521 ms [facility] Work Phone: T Wave [place] -34 degrees [facility] Work Phone: [facility] Work Phone: No Panel InformationOrdered By: Keegan Hill on 01-13-2025 P [place] 62 degrees [facility] Work Phone: MD Interval 186 ms [facility] Work Phone: QRS [place] -13 degrees [facility] Work Phone: QRSD Interval 84 ms [facility] Work Phone: QT Interval 400 ms [facility] Work Phone: QTC Interval 476 ms [facility] Work Phone: T [place] -[address] [facility] Work Phone: [facility] Work Phone: No Panel InformationOrdered By: Sarah Ulloa on 01-13-2025 Amount Of Oxygen 4lt [facility] Interpretation and review of laboratory results Abnormal [facility] Source Of Oxygen Nasal Cannula (LPM) [facility] PROTIME AND APTTon aPTT Coag (Bld) [Time] 35.5 s High 20.0-30.5 [facility] Comment on above: Performed By: #### L [id number] ####In House Cra: CHELSIE ISAACS ([id number])[facility])[address] [place] [address] INR Coag (PPP) [Relative time] 1.2 {INR} High 0.9-1.1 [facility] Comment on above: Result Comment: Sridhar [...] prevent Myocardial Infarction Performed By: #### L [id number] ####In House Cra: CHELSIE ISAACS ([id number])[facility] ([facility])[address] [place] [address] PT Coag (PPP) [Time] 12.9 s High 9.0-12.0 [facility] Comment on above: Performed By: #### L [id number] ####In House Cra: CHELSIE ISAACS ([id number])[facility])[address] [place] [address] Progress Noteon 01-13-2025 Progress Note Normal [facility] Progress Note Normal [facility] Progress Note Normal [facility] Progress Note Normal [facility] Vital signsOrdered By: Quincy Lopez on 01-13-2025 Heart rate 77 /min bpm [facility] [employer] Work Phone: Vital signsOrdered By: Alexandra Hill on 01-13-2025 Heart rate 85 /min bpm [facility] [employer] Work Phone: XR CHEST 1 VIEWon 01-13-2025 XR CHEST 1 VIEW Normal [facility] XR Chest Single viewon 01-13 [facility] Radiology Study observation (narrative) Leda piña [id number] 01-12-2025 [id number] Normal [facility] [id number] 01-12-2025 [id number] Normal [facility] APTTon 01-12-2025 aPTT Coag (Bld) [Time] 26.8 s Normal 20.0-30.5 [facility] Comment on above: Result Comment: SHARA Hand COMMENTS:NOTE: The therapeutic time for Heparin anticoagulation, based on Xa activity inhibition, is an APTT of 46-80 seconds. Performed By: #### L [id number], [id number] ####In House Cra: CHELSIE ISAACS ([id number])[facility] ([facility])[address] [place] [address] Anesthesia Noteon 01-12-2025 Anesthesia Note Normal [facility] Anesthesia Note Normal [facility] BASIC METABOLIC PANELon 06 Anion gap [Moles/Vol] 10 mmol/L Normal 3-13 [facility] Comment on above: Performed By: #### L AB15 ####In House Cra: CHELSIE ISAACS ([id number])[facility] ([facility])[address] [place] [address] Calcium [Mass/Vol] 7.2 mg/dL Low 8.8-10.0 [facility] Comment on above: Performed By: #### L AB15 ####In House Cra: CHELSIE ISAACS ([id number])[facility] ([facility])[address] [place] [address] [place] Chloride [Moles/Vol] 119 mmol/L High 98-107 [facility] Comment on above: Performed By: #### L AB15 ####In House Cra: CHELSIE ISAACS ([id number])[facility] ([facility])[address] [place] [address] [place] CO2 [Moles/Vol] 18 mmol/L Low 23-31 [facility] Comment on above: Performed By: #### L AB15 ####In House Cra: CHELSIE ISAACS ([id number])[facility])[address] [place] [address] Creatinine [Mass/Vol] 0.80 mg/dL Normal 0.57-1.11 [facility] Comment on above: Performed By: #### L AB15 ####In House Cra: CHELSIE ISAACS ([id number])[facility])[address] [place] [address] GLOMERULAR FILTRATION RATE ML/MIN/1.73 SQ M.PREDICTED 75.5 mL/min/1.73m*2 Normal >60.0 [facility] Comment on above: Result Comment: Calc ulation based on the Chronic Kidney Disease Epidemiology Collaboration (CKD-EPI) equation refit without adjustment for race Performed By: #### L AB15 ####In House Cra: CHELSIE ISAACS ([id number])[facility])[address] [place] [address] Glucose [Mass/Vol] 222 mg/dL High 82-115 [facility] Comment on above: Performed By: #### L AB15 ####In House Cra: CHELSIE ISAACS ([id number])[facility])[address] [place] [address] Potassium [Moles/Vol] 4.3 mmol/L Normal 3.5-5.1 [facility] Comment on above: Result Comment: [facility] potassium values may be up to 0.5 mmol/L lower than serum values. Performed By: #### L AB15 ####In House Cra: CHELSIE ISAACS ([id number])[facility])[address] [place] [address] [place] Sodium [Moles/Vol] 147 mmol/L High 136-145 [facility] Comment on above: Performed By: #### L AB15 ####In House Cra: CHELSIE ISAACS ([id number])[facility])[address] [place] [address] [place] Urea nitrogen [Mass/Vol] 18 mg/dL Normal 9-23 [facility] Comment on above: Performed By: #### L AB15 ####In House Cra: CHELSIE ISAACS ([id number])[facility] ([facility])[address] [place] [address] Anion gap [Moles/Vol] 9 mmol/L Normal 3-13 [facility] Comment on above: Performed By: #### L AB103, LAB20, LAB15 ####In House Cra: CHELSIE ISAACS ([id number])[facility] [place] [address] Calcium [Mass/Vol] 7.4 mg/dL Low 8.8-10.0 [facility] Comment on above: Performed By: #### L AB103, LAB20, LAB15 ####In House Cra: CHELSIE ISAACS ([id number])[facility] [place] [address] Chloride [Moles/Vol] 120 mmol/L High 98-107 [facility] Comment on above: Performed By: #### L AB103, LAB20, LAB15 ####In House Cra: CHELSIE ISAACS ([id number])[facility] ([facility])[address] [place] [address] CO2 [Moles/Vol] 17 mmol/L Low 23-31 [facility] Comment on above: Performed By: #### L AB103, LAB20, LAB15 ####In House Cra: CHELSIE ISAACS ([id number])[facility] ([facility])[address] [place] [address] Creatinine [Mass/Vol] 0.75 mg/dL Normal 0.57-1.11 [facility] Comment on above: Performed By: #### L AB103, LAB20, LAB15 ####In House Cra: CHELSIE ISAACS ([id number])[facility] ([facility])[address] [place] [address] GLOMERULAR FILTRATION RATE ML/MIN/1.73 SQ M.PREDICTED 81.6 mL/min/1.73m*2 Normal >60.0 [facility] Comment on above: Result Comment: Calc ulation based on the Chronic Kidney Disease Epidemiology Collaboration (CKD-EPI) equation refit without adjustment for race Performed By: #### L AB103, LAB20, LAB15 ####In House Cra: CHELSIE ISAACS ([id number])[facility] ([facility])[address] [place] [address] Glucose [Mass/Vol] 113 mg/dL Normal 82-115 [facility] Comment on above: Performed By: #### L AB103, LAB20, LAB15 ####In House Cra: CHELSIE ISAACS ([id number])[facility] ([facility])[address] [place] [address] Potassium [Moles/Vol] 3.4 mmol/L Low 3.5-5.1 [facility] Comment on above: Result Comment: [facility] potassium values may be up to 0.5 mmol/L lower than serum values. Performed By: #### L AB103, LAB20, LAB15 ####In House Cra: CHELSIE ISAACS ([id number])[facility] [place] [address] [place] Sodium [Moles/Vol] 146 mmol/L High 136-145 [facility] Comment on above: Performed By: #### L AB103, LAB20, LAB15 ####In House Cra: CHELSIE ISAACS ([id number])[facility] [place] [address] [place] Urea nitrogen [Mass/Vol] 19 mg/dL Normal 9-23 [facility] Comment on above: Performed By: #### L AB103, LAB20, LAB15 ####In House Cra: CHELSIE ISAACS ([id number])[facility] ([facility])[address] [place] [address] [place] Anion gap [Moles/Vol] 10 mmol/L Normal 3-13 [facility] Comment on above: Performed By: #### L AB103, [id number], LAB15 ####In House Cra: CHELSIE ISAACS ([id number])[facility] ([facility])[address] [place] [address] Calcium [Mass/Vol] 9.1 mg/dL Normal 8.8-10.0 [facility] Comment on above: Performed By: #### L AB103, [id number], LAB15 ####In House Cra: CHELSIE ISAACS ([id number])[facility])[address] [place] [address] Chloride [Moles/Vol] 117 mmol/L High 98-107 [facility] Comment on above: Performed By: #### L AB103, [id number], LAB15 ####In House Cra: CHELSIE ISAACS ([id number])[facility] ([facility])[address] [place] [address] CO2 [Moles/Vol] 18 mmol/L Low 23-31 [facility] Comment on above: Performed By: #### Joseph AB103, OJK360, LAB15 ####In House Cra: CHELSIE ISAACS ([id number])[facility] ([facility])[address] [place] [address] Creatinine [Mass/Vol] 0.84 mg/dL Normal 0.57-1.11 [facility] Comment on above: Performed By: #### L AB103, RZR110, LAB15 ####In House Cra: CHELSIE ISAACS ([id number])[facility] ([facility])[address] [place] [address] [place] GLOMERULAR FILTRATION RATE ML/MIN/1.73 SQ M.PREDICTED 71.2 mL/min/1.73m*2 Normal >60.0 [facility] Comment on above: Result Comment: Calc ulation based on the Chronic Kidney Disease Epidemiology Collaboration (CKD-EPI) equation refit without adjustment for race Performed By: #### L AB103, [id number], LAB15 ####In House Cra: CHELSIE ISAACS ([id number])[facility] ([facility])[address] [place] [address] [place] Glucose [Mass/Vol] 138 mg/dL High 82-115 [facility] Comment on above: Performed By: #### L AB103, MIT847, LAB15 ####In House Cra: CHELSIE ISAACS ([id number])[facility])[address] [place] [address] Potassium [Moles/Vol] 3.5 mmol/L Normal 3.5-5.1 [facility] Comment on above: Result Comment: [facility] potassium values may be up to 0.5 mmol/L lower than serum values. Performed By: #### L AB103, [id number], LAB15 ####In House Cra: CHELSIE ISAACS ([id number])[facility] ([facility])[address] [place] [address] Sodium [Moles/Vol] 145 mmol/L Normal 136-145 [facility] Comment on above: Performed By: #### L AB103, MTP306, LAB15 ####In House Cra: CHELSIE ISAACS ([id number])[facility])[address] [place] [address] Urea nitrogen [Mass/Vol] 21 mg/dL Normal 9-23 [facility] Comment on above: Performed By: #### L AB103, VBT204, LAB15 ####In House Cra: CHELSIE ISAACS ([id number])[facility])[address] [place] [address] BLOOD GAS ARTERIALon 0602-2 025 AMOUNT OF OXYGEN 4 Normal [facility] Comment on above: Performed By: #### L AB76 ####In House Cra: CHELSIE ISAACS ([id number])[facility])[address] [place] [address] Base excess Calc (Bld) [Moles/Vol] -5.8000 mmol/L Low -3.0-3.0 [facility] Comment on above: Performed By: #### L AB76 ####In House Cra: CHELSIE ISAACS ([id number])[facility])[address] [place] [address] CO2 [Moles/Vol] 20.4 mmol/L Low 23.0-27.0 [facility] Comment on above: Performed By: #### L AB76 ####In House Cra: CHELSIE ISAACS ([id number])[facility] ([facility])[address] [place] [address] HCO3 (Bld) [Moles/Vol] 19.3 mmol/L Low 21.0-25.0 [facility] Comment on above: Performed By: #### L AB76 ####In House Cra: CHELSIE ISAACS ([id number])[facility] ([facility])[address] [place] [address] Hemoglobin (Bld) [Mass/Vol] 7.8 g/dL Normal Screen only [facility] Comment on above: Performed By: #### L AB76 ####In House Cra: CHELSIE ISAACS ([id number])[facility] ([facility])[address] [place] [address] OXYGEN SATURATION (%) IN ARTERIAL BLOOD 98.1 % Normal 95.0-100.0 [facility] Comment on above: Performed By: #### L AB76 ####In House Cra: CHELSIE ISAACS ([id number])[facility] ([facility])[address] [place] [address] PCO2 ARTERIAL 36.2 mm Hg Normal >35.0-<45.0 [facility] Comment on above: Performed By: #### L AB76 ####In House Cra: CHELSIE ISAACS ([id number])[facility] ([facility])[address] [place] [address] PH ARTERIAL 7.345 Low 7.350-7.450 [facility] Comment on above: Performed By: #### L AB76 ####In House Cra: CHELSIE ISAACS ([id number])[facility] ([facility])[address] [place] [address] PO2 ARTERIAL 132.9 mm Hg High 80.0-100.0 [facility] Comment on above: Performed By: #### L AB76 ####In House Cra: CHELSIE ISAACS ([id number])[facility] ([facility])[address] [place] [address] SOURCE OF OXYGEN Nasal Cannula (LPM) Normal [facility] Comment on above: Performed By: #### L AB76 ####In House Cra: CHELSIE ISAACS ([id number])[facility] ([facility])[address] [place] [address] AMOUNT OF OXYGEN 40 Normal [facility] Comment on above: Performed By: #### L AB76 ####In House Cra: CHELSIE ISACAS ([id number])[facility] ([facility])[address] [place] [address] Base excess Calc (Bld) [Moles/Vol] -5.0000 mmol/L Low -3.0-3.0 [facility] Comment on above: Performed By: #### L [id number] ####In House Cra: CHELSIE ISAACS ([id number])[facility] ([facility])[address] [place] [address] CO2 [Moles/Vol] 21.7 mmol/L Low 23.0-27.0 [facility] Comment on above: Performed By: #### L AB76 ####In House Cra: CHELSIE ISAACS ([id number])[facility] ([facility])[address] [place] [address] HCO3 (Bld) [Moles/Vol] 20.5 mmol/L Low 21.0-25.0 [facility] Comment on above: Performed By: #### L AB76 ####In House Cra: CHELSIE ISAACS ([id number])[facility] ([facility])[address] [place] [address] Hemoglobin (Bld) [Mass/Vol] 9.2 g/dL Normal Screen only [facility] Comment on above: Performed By: #### L AB76 ####In House Cra: CHELSIE ISAACS ([id number])[facility])[address] [place] [address] OXYGEN SATURATION (%) IN ARTERIAL BLOOD 97.5 % Normal 95.0-100.0 [facility] Comment on above: Performed By: #### L [id number] ####In House Cra: CHELSIE [id number])[facility] ([facility])[address] [place] [address] PCO2 ARTERIAL 39.5 mm Hg Normal >35.0-<45.0 [facility] Comment on above: Performed By: #### L [id number] ####In House Cra: CHELSIE ISAACS ([id number])[facility] ([facility])[address] [place] [address] PH ARTERIAL 7.333 Low 7.350-7.450 [facility] Comment on above: Performed By: #### L [id number] ####In House Cra: CHELSIE ISAACS ([id number])[facility] ([facility])[address] [place] [address] PO2 ARTERIAL 122.0 mm Hg High 80.0-100.0 [facility] Comment on above: Performed By: #### L [id number] ####In House Cra: CHELSIE ISAACS ([id number])[facility])[address] [place] [address] SOURCE OF OXYGEN Ventilator Normal [facility] Comment on above: Performed By: #### L AB76 ####In House Cra: CHELSIE ISAACS ([id number])[facility] ([facility])[address] [place] [address] AMOUNT OF OXYGEN 50 Normal [facility] Comment on above: Performed By: #### L [id number] ####In House Cra: CHELSIE ISAACS ([id number])[facility] ([facility])[address] [place] [address] Base excess Calc (Bld) [Moles/Vol] -7.5000 mmol/L Low -3.0-3.0 [facility] Comment on above: Performed By: #### L AB76 ####In House Cra: CHELSIE ISAACS ([id number])[facility])[address] [place] [address] CO2 [Moles/Vol] 20.5 mmol/L Low 23.0-27.0 [facility] Comment on above: Performed By: #### L [id number] ####In House Cra: CHELSIE [id number])[facility] ([facility])[address] [place] [address] HCO3 (Bld) [Moles/Vol] 19.2 mmol/L Low 21.0-25.0 [facility] Comment on above: Performed By: #### L [id number] ####In House Cra: CHELSIE ISAACS ([id number])[facility] [place] [address] Hemoglobin (Bld) [Mass/Vol] 8.9 g/dL Normal Screen only [facility] Comment on above: Performed By: #### L [id number] ####In House Cra: CHELSIE ISAACS ([id number])[facility] ([facility])[address] [place] [address] OXYGEN SATURATION (%) IN ARTERIAL BLOOD 97.9 % Normal 95.0-100.0 [facility] Comment on above: Performed By: #### L [id number] ####In House Cra: CHELSIE ISAACS ([id number])[facility] [place] [address] PCO2 ARTERIAL 44.1 mm Hg Normal >35.0-<45.0 [facility] Comment on above: Performed By: #### L [id number] ####In House Cra: CHELSIE ISAACS ([id number])[facility] ([facility])[address] [place] [address] PH ARTERIAL 7.256 Low 7.350-7.450 [facility] Comment on above: Performed By: #### L AB76 ####In House Cra: CHELSIE ISAACS ([id number])[facility] ([facility])[address] [place] [address] PO2 ARTERIAL 164.0 mm Hg High 80.0-100.0 [facility] Comment on above: Performed By: #### L AB76 ####In House Cra: CHELSIE ISAACS ([id number])[facility] ([facility])[address] [place] [address] SOURCE OF OXYGEN Ventilator Normal [facility] Comment on above: Performed By: #### L [id number] ####In House Cra: CHELSIE ISAACS ([id number])[facility] ([facility])[address] [place] [address] AMOUNT OF OXYGEN [address] [facility] Comment on above: Performed By: #### L AB76 ####In House Cra: CHELSIE ISAACS ([id number])[facility])[address] [place] [address] Base excess Calc (Bld) [Moles/Vol] -5.7000 mmol/L Low -3.0-3.0 [facility] Comment on above: Performed By: #### L [id number] ####In House Cra: CHELSIE ISAACS ([id number])[facility])[address] [place] [address] CO2 [Moles/Vol] 20.3 mmol/L Low 23.0-27.0 [facility] Comment on above: Performed By: #### L AB76 ####In House Cra: CHELSIE ISAACS ([id number])[facility] ([facility])[address] [place] [address] HCO3 (Bld) [Moles/Vol] 19.3 mmol/L Low 21.0-25.0 [facility] Comment on above: Performed By: #### L [id number] ####In House Cra: CHELSIE ISAACS ([id number])[facility])[address] [place] [address] Hemoglobin (Bld) [Mass/Vol] 8.2 g/dL Normal Screen only [facility] Comment on above: Performed By: #### L AB76 ####In House Cra: CHELSIE ISAACS ([id number])[facility])[address] [place] [address] OXYGEN SATURATION (%) IN ARTERIAL BLOOD 98.8 % Normal 95.0-100.0 [facility] Comment on above: Performed By: #### L AB76 ####In House Cra: CHELSIE ISAACS ([id number])[facility] ([facility])[address] [place] [address] PCO2 ARTERIAL 35.1 mm Hg Normal >35.0-<45.0 [facility] Comment on above: Performed By: #### L [id number] ####In House Cra: CHELSIE ISAACS ([id number])[facility] ([facility])[address] [place] [address] PH ARTERIAL 7.357 Normal 7.350-7.450 [facility] Comment on above: Performed By: #### L [id number] ####In House Cra: CHELSIE ISAACS ([id number])[facility] [place] [address] PO2 ARTERIAL 320.7 mm Hg High 80.0-100.[address] [facility] Comment on above: Performed By: #### L [id number] ####In House Cra: CHELSIE ISAASC ([id number])[facility] ([facility])[address] [place] [address] SOURCE OF OXYGEN Ventilator Normal [facility] Comment on above: Performed By: #### L AB76 ####In House Cra: CHELSIE ISAACS ([phone])[facility] ([facility])[address] [place] [address] Basic metabolic 1998 panelon 01-12-2025 Anion gap [Moles/Vol] 10 mmol/L 3 - 13 mmol/L [facility] Calcium [Mass/Vol] 7.2 mg/dL Low 8.8 - 10. 0 mg/dL [facility] Chloride [Moles/Vol] 119 mmol/L High 98 - 10 7 mmol/L [facility] CO2 [Moles/Vol] 18 mmol/L Low 23 - 31 mmol/L [facility] Creatinine [Mass/Vol] 0.8 mg/dL 0.57 - 1.11 mg/dL [facility] GFR/1.73 sq M.predicted (S/P/Bld) [Vol rate/Area] 75.5 mL/min - PINF [facility] Glucose [Mass/Vol] 222 mg/dL High 82 - 115 mg/dL [facility] Interpretation and review of laboratory results Abnormal [facility] Potassium [Moles/Vol] 4.3 mmol/L 3.5 - 5.1 mmol/L [facility] Sodium [Moles/Vol] 147 mmol/L High 136 - 145 mmol/L [facility] Urea nitrogen [Mass/Vol] 18 mg/dL 9 - 23 mg/d L [facility] CALCIUM, IONIZEDon CALCIUM IONIZED 5.10 mg/dL Normal 4.30-5.20 [facility] Comment on above: Performed By: #### L AB54 ####In House Cra: CHELSIE ISAACS ([phone])[facility])[address] [place] [address] PH, IONIZED CALCIUM 7.35 Normal 7.31-7.46 [facility] Comment on above: Performed By: #### L AB54 ####In House Cra: CHELSIE ISAACS ([id number])[facility])[address] [place] [address] CBC (HEMOGRAM)on 01-12-2025 Erythrocyte distribution width (RBC) [Ratio] 14.2 % Normal 11.5-15.0 [facility] Comment on above: Performed By: #### L AB294 ####In House Cra: CHELSIE ISAACS ([id number])[facility])[address] [place] [address] Hematocrit (Bld) [Volume fraction] 24.0 % Low 35.0-47.0 [facility] Comment on above: Performed By: #### L AB294 ####In House Cra: CHELSIE ISAACS ([id number])[facility])[address] [place] [address] Hemoglobin (Bld) [Mass/Vol] 7.7 g/dL Low 11.7-16.0 [facility] Comment on above: Performed By: #### L AB294 ####In House Cra: CHELSIE ISAACS ([phone])[facility])[address] [place] [address] MCH (RBC) [Entitic mass] 29.6 pg Normal 26.0-34.0 [facility] Comment on above: Performed By: #### L AB294 ####In House Cra: CHELSIE ISAACS ([id number])[facility] ([facility])[address] [place] [address] MCHC 32.1 % Normal 30.5-36.0 [facility] Comment on above: Performed By: #### L AB294 ####In House Cra: CHELSIE ISAACS ([id number])[facility] ([facility])[address] [place] [address] MCV (RBC) [Entitic vol] 92.3 fL Normal 77.0-99.0 [facility] Comment on above: Performed By: #### L AB294 ####In House Cra: CHELSIE ISAACS ([id number])[facility])[address] [place] [address] Platelet mean volume (Bld) [Entitic vol] 10.2 fL Normal 9.0-12.7 [facility] Comment on above: Performed By: #### L [id number] ####In House Cra: CHELSIE ISAACS ([id number])[facility] ([facility])[address] [place] [address] Platelets (Bld) [#/Vol] 169 10*3/uL Normal 140-440 [facility] Comment on above: Performed By: #### L AB294 ####In House Cra: CHELSIE ISAACS ([phone])[facility])[address] [place] [address] RBC (Bld) [#/Vol] 2.60 10*6/uL Low 3.80-5.20 [facility] Comment on above: Performed By: #### L AB294 ####In House Cra: CHELSIE ISAACS ([phone])[facility])[address] [place] [address] WBC (Bld) [#/Vol] 13.3 10*3/uL High 3.6-10.7 [facility] Comment on above: Performed By: #### L AB294 ####In House Cra: CHELSIE ISAACS ([id number])[facility])[address] [place] [address] Erythrocyte distribution width (RBC) [Ratio] 14.2 % Normal 11.5-15.0 [facility] Comment on above: Performed By: #### L AB294 ####In House Cra: CHELSIE ISAACS ([id number])[facility])[address] [place] [address] Hematocrit (Bld) [Volume fraction] 26.1 % Low 35.0-47.0 [facility] Comment on above: Performed By: #### L AB294 ####In House Cra: CHELSIE ISAACS ([id number])[facility])[address] [place] [address] Hemoglobin (Bld) [Mass/Vol] 8.2 g/dL Low 11.7-16.0 [facility] Comment on above: Performed By: #### L AB294 ####In House Cra: CHELSEI ISAACS ([id number])[facility])[address] [place] [address] [place] IPF 2 Normal [facility] Comment on above: Performed By: #### L AB294 ####In House Cra: CHELSIE ISAACS ([id number])[facility])[address] [place] [address] MCH (RBC) [Entitic mass] 29.0 pg Normal 26.0-34.0 [facility] Comment on above: Performed By: #### L AB294 ####In House Cra: CHELSIE ISAACS ([id number])[facility])[address] [place] [address] MCHC 31.4 % Normal 30.5-36.0 [facility] Comment on above: Performed By: #### L [id number] ####In House Cra: CHELSIE ISAACS ([phone])[facility])[address] [place] [address] MCV (RBC) [Entitic vol] 92.2 fL Normal 77.0-99.0 [facility] Comment on above: Performed By: #### L [id number] ####In House Cra: CHELSIE ISAACS ([id number])[facility])[address] [place] [address] Platelet mean volume (Bld) [Entitic vol] 9.8 fL Normal 9.0-12.7 [facility] Comment on above: Performed By: #### L AB294 ####In House Cra: CHELSIE ISAACS ([id number])[facility] ([facility])[address] [place] [address] Platelets (Bld) [#/Vol] 90 10*3/uL Low 140-440 [facility] Comment on above: Performed By: #### L AB294 ####In House Cra: CHELSIE ISAACS ([id number])[facility])[address] [place] [address] RBC (Bld) [#/Vol] 2.83 10*6/uL Low 3.80-5.20 [facility] Comment on above: Performed By: #### L AB294 ####In House Cra: CHELSIE ISAACS ([id number])[facility])[address] [place] [address] WBC (Bld) [#/Vol] 10.3 10*3/uL Normal 3.6-10.7 [facility] Comment on above: Performed By: #### L AB294 ####In House Cra: CHELSIE ISAACS ([id number])[facility])[address] [place] [address] Erythrocyte distribution width (RBC) [Ratio] 14.1 % Normal 11.5-15.0 [facility] Comment on above: Performed By: #### L AB294 ####In House Cra: CHELSIE ISAACS ([id number])[facility])[address] [place] [address] Hematocrit (Bld) [Volume fraction] 24.1 % Low 35.0-47.0 [facility] Comment on above: Performed By: #### L AB294 ####In House Cra: CHELSIE ISAACS ([id number])[facility] ([facility])[address] [place] [address] Hemoglobin (Bld) [Mass/Vol] 7.5 g/dL Low 11.7-16.0 [facility] Comment on above: Performed By: #### L [id number] ####In House Cra: CHELSIE ISAACS ([id number])[facility] ([facility])[address] [place] [address] MCH (RBC) [Entitic mass] 28.8 pg Normal 26.0-34.0 [facility] Comment on above: Performed By: #### L [id number] ####In House Cra: CHELSIE ISAACS ([id number])[facility])[address] [place] [address] MCHC 31.1 % Normal 30.5-36.0 [facility] Comment on above: Performed By: #### L [id number] ####In House Cra: CHELSIE ISAACS ([id number])[facility] ([facility])[address] [place] [address] MCV (RBC) [Entitic vol] 92.7 fL Normal 77.0-99.0 [facility] Comment on above: Performed By: #### L [id number] ####In House Cra: CHELSIE ISAACS ([id number])[facility] ([facility])[address] [place] [address] Platelet mean volume (Bld) [Entitic vol] 10.2 fL Normal 9.0-12.7 [facility] Comment on above: Performed By: #### L [id number] ####In House Cra: CHELSIE ISAACS ([id number])[facility])[address] [place] [address] Platelets (Bld) [#/Vol] 111 10*3/uL Low 140-440 [facility] Comment on above: Performed By: #### L [id number] ####In House Cra: CHELSIE ISAACS ([id number])[facility])[address] [place] [address] RBC (Bld) [#/Vol] 2.60 10*6/uL Low 3.80-5.20 [facility] Comment on above: Performed By: #### L [id number] ####In House Cra: CHELSIE ISAACS ([id number])[facility])[address] [place] [address] WBC (Bld) [#/Vol] 13.0 10*3/uL High 3.6-10.7 [facility] Comment on above: Performed By: #### L [id number] ####In House Cra: CHELSIE SIAACS ([id number])[address] Erythrocyte distribution width (RBC) [Ratio] 14.1 % Normal 11.5-15.0 [facility] Comment on above: Performed By: #### L [id number] ####In House Cra: CHELSIE ISAACS ([id number])[facility])[address] [place] [address] Hematocrit (Bld) [Volume fraction] 39.9 % Normal 35.0-47.0 [facility] Comment on above: Performed By: #### L [id number] ####In House Cra: CHELSIE ISAACS ([id number])[address] Hemoglobin (Bld) [Mass/Vol] 13.1 g/dL Normal 11.7-16.0 [facility] Comment on above: Performed By: #### L [id number] ####In House Cra: CHELSIE ISAACS ([id number])[facility])[address] [place] [address] MCH (RBC) [Entitic mass] 29.3 pg Normal 26.0-34.0 [facility] Comment on above: Performed By: #### L [id number] ####In House Cra: CHELSIE ISAACS ([id number])[facility])[address] [place] [address] MCHC 32.8 % Normal 30.5-36.0 [facility] Comment on above: Performed By: #### L [id number] ####In House Cra: CHELSIE ISAACS ([id number])[facility] ([facility])[address] [place] [address] MCV (RBC) [Entitic vol] 89.3 fL Normal 77.0-99.0 [facility] Comment on above: Performed By: #### L [id number] ####In House Cra: CHELSIE ISAACS ([id number])[facility] ([facility])[address] [place] [address] Platelet mean volume (Bld) [Entitic vol] 9.9 fL Normal 9.0-12.7 [facility] Comment on above: Performed By: #### L [id number] ####In House Cra: CHELSIE ISAACS ([id number])[facility] ([facility])[address] [place] [address] Platelets (Bld) [#/Vol] 222 10*3/uL Normal 140-440 [facility] Comment on above: Performed By: #### L [id number] ####In House Cra: CHELSIE ISAACS ([id number])[facility] ([facility])[address] [place] [address] RBC (Bld) [#/Vol] 4.47 10*6/uL Normal 3.80-5.20 [facility] Comment on above: Performed By: #### L [id number] ####In House Cra: CHELSIE ISAACS ([id number])[facility] ([facility])[address] [place] [address] WBC (Bld) [#/Vol] 5.5 10*3/uL Normal 3.6-10.7 [facility] Comment on above: Performed By: #### L [id number] ####In House Cra: CHELSIE ISAACS ([id number])[facility])[address] [place] [address] CBC panel Auto (Bld)Ordered By: Amairani Coronado on 01-12-2025 Erythrocyte distribution width (RBC) [Ratio] 14.2 % 11.5 - 15.0 % [facility] Hematocrit (Bld) [Volume fraction] 24 % Low 35.0 - 47.0 % [facility] Hemoglobin (Bld) [Mass/Vol] 7.7 g/dL Low 11.7 - 16.0 g/dL [facility] Interpretation and review of laboratory results Abnormal [facility] MCH (RBC) [Entitic mass] 29.6 pg 26. 0 - 34.0 pg [facility] MCHC (RBC) [Mass/Vol] 32.1 % 30.5 - 36.0 % [facility] MCV (RBC) [Entitic vol] 92.3 fL 77.0 - 99.0 fL [facility] Platelet mean volume (Bld) [Entitic vol] 10.2 fL 9.0 - 12.7 fL [facility] Platelets (Bld) [#/Vol] 169 10*3/uL 140 - 440 10*3/uL [facility] RBC (Bld) [#/Vol] 2.6 10*6/uL Low 3.80 - 5.2 0 10*6/uL [facility] WBC (Bld) [#/Vol] 13.3 10*3/uL High 3.6 - 10.7 10*3/uL [facility] COMPREHENSIVE METABOLIC PANE Lino 01-12-2025 Albumin [Mass/Vol] 3.4 g/dL Normal 3.4-4.8 [facility] Comment on above: Performed By: #### L AB18, LAB17, [id number] ####In House Cra: CHELSIE ISAACS ([id number])[address] ALP [Catalytic activity/Vol] 85 U/L Normal 40-150 [facility] Comment on above: Performed By: #### L AB18, LAB17, [id number] ####In House Cra: CHELSIE ISAACS ([id number])[address] ALT [Catalytic activity/Vol] 32 U/L High <30 [facility] Comment on above: Performed By: #### L AB18, LAB17, [id number] ####In House Cra: CHELSIE ISAACS ([id number])[facility] ([facility])[address] [place] [address] Anion gap [Moles/Vol] 10 mmol/L Normal 3-13 [facility] Comment on above: Performed By: #### Joseph AB18, LAB17, [id number] ####In House Cra: CHELSIE ISAACS ([id number])[facility] ([facility])[address] [place] [address] AST [Catalytic activity/Vol] 35 U/L High <34 [facility] Comment on above: Performed By: #### Joseph AB18, LAB17, [id number] ####In House Cra: CHELSIE ISAACS ([id number])[facility] ([facility])[address] [place] [address] Bilirubin [Mass/Vol] 0.4 mg/dL Normal <1.2 [facility] Comment on above: Performed By: #### Joseph AB18, LAB17, [id number] ####In House Cra: CHELSIE ISAACS ([id number])[facility] ([facility])[address] [place] [address] Calcium [Mass/Vol] 9.4 mg/dL Normal 8.8-10.0 [facility] Comment on above: Performed By: #### Joseph AB18, LAB17, [id number] ####In House Cra: CHELSIE ISAACS ([id number])[facility] ([facility])[address] [place] [address] [place] Chloride [Moles/Vol] 108 mmol/L High 98-107 [facility] Comment on above: Performed By: #### L AB18, LAB17, [id number] ####In House Cra: CHELSIE ISAACS ([id number])[facility] ([facility])[address] [place] [address] CO2 [Moles/Vol] 21 mmol/L Low 23-31 [facility] Comment on above: Performed By: #### Joseph AB18, LAB17, [id number] ####In House Cra: CHELSIE ISAACS ([id number])[facility])[address] [place] [address] Creatinine [Mass/Vol] 0.80 mg/dL Normal 0.57-1.11 [facility] Comment on above: Performed By: #### L AB18, LAB17, [id number] ####In House Cra: CHELSIE ISAACS ([id number])[facility])[address] [place] [address] [place] GLOMERULAR FILTRATION RATE ML/MIN/1.73 SQ M.PREDICTED 75.5 mL/min/1.73m*2 Normal >60.0 [facility] Comment on above: Result Comment: Calc ulation based on the Chronic Kidney Disease Epidemiology Collaboration (CKD-EPI) equation refit without adjustment for race Performed By: #### L AB18, LAB17, [id number] ####In House Cra: CHELSIE ISAACS ([id number])[facility])[address] [place] [address] Glucose [Mass/Vol] 92 mg/dL Normal 82-115 [facility] Comment on above: Performed By: #### Joseph AB18, LAB17, [id number] ####In House Cra: CHELSIE ISAACS ([id number])[facility])[address] [place] [address] Potassium [Moles/Vol] 3.9 mmol/L Normal 3.5-5.1 [facility] Comment on above: Result Comment: [facility] potassium values may be up to 0.5 mmol/L lower than serum values. Performed By: #### L AB18, LAB17, [id number] ####In House Cra: CHELSIE ISAACS ([id number])[facility] ([facility])[address] [place] [address] Protein [Mass/Vol] 7.1 g/dL Normal 6.4-8.3 [facility] Comment on above: Performed By: #### L AB18, LAB17, [id number] ####In House Cra: CHELSIE ISAACS ([id number])[facility])[address] [place] [address] Sodium [Moles/Vol] 139 mmol/L Normal 136-145 [facility] Comment on above: Performed By: #### L AB18, LAB17, [id number] ####In House Cra: CHELSIE ISAACS ([id number])[facility] ([facility])[address] [place] [address] Urea nitrogen [Mass/Vol] 24 mg/dL High 9-23 [facility] Comment on above: Performed By: #### L AB18, LAB17, [id number] ####In House Cra: CHELSIE ISAACS ([id number])[facility] ([facility])[address] [place] [address] Consulton 01-12-2025 Consult Normal [facility] Consult Normal [facility] FIBRINOGENon 01-12-2025 FIBRINOGEN 239 mg/dL Normal 200-400 [facility] Comment on above: Order Comment: Recom mend 15 to 30 minutes post transfusion Performed By: #### L AB314, [id number] ####In House Cra: CHELSIE ISAACS ([id number])[facility] [place] [address] FIBRINOGEN 148 mg/dL Low 200-400 [facility] Comment on above: Performed By: #### L [id number], [id number] ####In House Cra: CHELSIE ISAACS ([id number])[facility] ([facility])[address] [place] [address] FIBRINOGEN 165 mg/dL Low 200-400 [facility] Comment on above: Performed By: #### L AB314, [id number] ####In House Cra: CHELSIE ISAACS ([id number])[facility] [place] [address] Fibrinogen Coag (PPP) [Mass/ Vol]on 01-12-2025 Interpretation and review of laboratory results Normal [facility] HEMOGLOBIN A1Con 01-12-2025 Glucose [Mass/Vol] 120 mg/dL Normal [facility] Comment on above: Result Comment: ORDE R COMMENTS:HbA1c values of 5.7-6.4 percent indicate an increased risk for developing diabetes mellitus. HbA1c values greater than or equal to 6.5 percent are diagnostic of diabetes mellitus. For diagnosis of diabetes in individuals without unequivocal hyperglycemia, results should be confirmed by repeat testing. Performed By: #### L AB90 ####In House Cra: CHELSIE ISAACS ([id number])[facility])[address] [place] [address] HEMOGLOBIN A1C 5.8 %HbA1C High <5.7 [facility] Comment on above: Result Comment: Norm al less than 5.7%Prediabetes 5.7% to 6.4%Diabetes 6.5% or higher--HgbA1C levels may not be accurate in patients who have renal disease, received recent blood transfusions, are anemic, or who have dyshemoglobinemia. Performed By: #### L AB90 ####In House Cra: CHELSIE ISAACS ([id number])[facility])[address] [place] [address] HEMOGLOBIN AND HEMATOCRIT, B LOODon 01-12-2025 Hematocrit (Bld) [Volume fraction] 29.2 % Low 35.0-47.0 [facility] Comment on above: Order Comment: Recom mend 1 hour post transfusion Performed By: #### L AB753 ####In House Cra: CHELSIE ISAACS ([id number])[facility])[address] [place] [address] Hemoglobin (Bld) [Mass/Vol] 9.7 g/dL Low 11.7-16.0 [facility] Comment on above: Order Comment: Recom mend 1 hour post transfusion Performed By: #### L AB753 ####In House Cra: CHELSIE ISAACS ([id number])[facility])[address] [place] [address] HEPATIC FUNCTION PANELon Albumin [Mass/Vol] 3.4 g/dL Normal 3.4-4.8 [facility] Comment on above: Performed By: #### L AB103, LAB20, LAB15 ####In House Cra: CHELSIE ISAACS ([id number])[address] ALP [Catalytic activity/Vol] 37 U/L Low 40-150 [facility] Comment on above: Performed By: #### L AB103, LAB20, LAB15 ####In House Cra: CHELSIE ISAACS ([id number])[facility])[address] [place] [address] ALT [Catalytic activity/Vol] 52 U/L High <30 [facility] Comment on above: Performed By: #### L AB103, LAB20, LAB15 ####In House Cra: CHELSIE ISAACS ([id number])[facility])[address] [place] [address] AST [Catalytic activity/Vol] 83 U/L High <34 [facility] Comment on above: Performed By: #### L AB103, LAB20, LAB15 ####In House Cra: CHELSIE ISAACS ([id number])[facility])[address] [place] [address] Bilirubin [Mass/Vol] 1.0 mg/dL Normal <1.2 [facility] Comment on above: Performed By: #### L AB103, LAB20, LAB15 ####In House Cra: CHELSIE ISAACS ([id number])[facility])[address] [place] [address] Bilirubin.indirect [Mass/Vol] 0.6 mg/dL High <0.5 [facility] Comment on above: Performed By: #### L AB103, LAB20, LAB15 ####In House Cra: CHELSIE ISAACS ([id number])[facility])[address] [place] [address] Protein [Mass/Vol] 5.0 g/dL Low 6.4-8.3 [facility] Comment on above: Result Comment: Seru m protein values are higher than plasma values. Samples from recumbent persons are lower by up to 0.5 g/dL as compared to ambulatory persons. After 60 years values are lower by up to 0.2 g/dL. Performed By: #### L AB103, LAB20, LAB15 ####In House Cra: CHELSIE ISAACS ([id number])[facility] [place] [address] Hemoglobin (Bld) [Mass/Vol]o n 01-12-2025 Hematocrit (Bld) [Volume fraction] 29.2 % Low 35.0 - 47.0 % [facility] Interpretation and review of laboratory results Abnormal [facility] LIPID PANELon 01-12-2025 Cholesterol [Mass/Vol] 174 mg/dL Normal <200 [facility] Comment on above: Performed By: #### Joseph AB18, LAB17, [id number] ####In House Cra: CHELSIE ISAACS ([id number])[facility])[address] [place] [address] Cholesterol in HDL [Mass/Vol] 49 mg/dL Low >=60 [facility] Comment on above: Performed By: #### Joseph AB18, LAB17, [id number] ####In House Cra: CHELSIE ISAACS ([id number])[facility] ([facility])[address] [place] [address] Cholesterol.total/Choles terol in HDL [Mass ratio] 4 {ratio} Normal [facility] Comment on above: Result Comment: Ref Range:< 3 Low Risk for CHD3-6 Mod Risk for CHD> 6 High Risk for CHD Performed By: #### Joseph AB18, LAB17, [id number] ####In House Cra: CHELSIE ISAACS ([id number])[facility] ([facility])[address] [place] [address] LOW DENSITY LIPOPROTEIN 92 mg/dL Normal 0-<100 [facility] Comment on above: Performed By: #### L AB18, LAB17, [id number] ####In House Cra: CHELSIE ISAACS ([phone])[facility])[address] [place] [address] NON-HDL CHOLESTEROL, CALCULATED 125 Normal <130 [facility] Comment on above: Performed By: #### L AB18, LAB17, [id number] ####In House Cra: CHELSIE ISAACS ([phone])[facility] ([facility])[address] [place] [address] [place] Triglyceride [Mass/Vol] 164 mg/dL High <150 [facility] Comment on above: Performed By: #### L AB18, LAB17, [id number] ####In House Cra: CHELSIE ISAACS ([phone])[facility] ([facility])[address] [place] [address] VERY LOW DENSITY LIPOPROTEIN, CALCULATED 33 mg/dL High <=30 [facility] Comment on above: Performed By: #### L AB18, LAB17, [id number] ####In House Cra: CHELSIE ISAACS ([phone])[facility] ([facility])[address] [place] [address] Laboratory - Chemistry and C hemistry - challengeon 01-12-2025 Glucose [Mass/Vol] 123 mg/dL High 70 - 100 mg/dL [facility] Glucose [Mass/Vol] 152 mg/dL High 70 - 100 mg/dL [facility] Glucose [Mass/Vol] 146 mg/dL High 70 - 100 mg/dL [facility] Glucose [Mass/Vol] 160 mg/dL High 70 - 100 mg/dL [facility] Glucose [Mass/Vol] 166 mg/dL High 70 - 100 mg/dL [facility] Glucose [Mass/Vol] 147 mg/dL High 70 - 100 mg/dL [facility] Glucose [Mass/Vol] 125 mg/dL High 70 - 100 mg/dL [facility] Laboratory - Chemistry and C hemistry - challengeOrdered By: Salud Grant on 01-12-2025 Base excess Calc (Bld) [Moles/Vol] -5.8000 mmol/L Low -3.0 - 3.0 mmol/L [facility] CO2 (Bld) [Partial pressure] 36.2 mm[Hg] - PINF [facility] CO2 [Moles/Vol] 20.4 mmol/L Low 23.0 - 27.0 mmol/L [facility] HCO3 (Bld) [Moles/Vol] 19.3 mmol/L Low 21.0 - 25.0 mmol/L [facility] Oxygen (Bld) [Partial pressure] 132.9 mm[Hg] High [facility] pH (Bld) 7.345 [pH] Low 7.350 - 7.450 [facility] Laboratory - Chemistry and C hemistry - challengeOrdered By: Samira Morel on 01-12-2025 CO2 (Bld) [Partial pressure] 39.5 mm[Hg] - PINF [facility] Laboratory - Coagulationon 0 01-12-2025 aPTT Coag (PPP) [Time] 60.3 s High 20.0 - 30.5 s [facility] Fibrinogen Coag (PPP) [Mass/Vol] 239 mg/dL 200 - 400 mg/dL [facility] INR Coag (PPP) [Relative time] 1.2 {INR} High 0.9 - 1.1 [facility] PT Coag (Bld) [Time] 13 s High 9.0 - 12.0 s [facility] Laboratory - Hematology and Cell countson 01-12-2025 Hemoglobin (Bld) [Mass/Vol] 9.7 g/dL Low 11.7 - 16.0 g/dL [facility] Laboratory - Hematology and Cell countsOrdered By: Salud Grant on 01-12-2025 Hemoglobin (Bld) [Mass/Vol] 7.8 g/dL 7.0 g/dl [facility] MAGNESIUMon 01-12-2025 Magnesium [Mass/Vol] 3.0 mg/dL High 1.6-2.6 [facility] Comment on above: Result Comment: SHARA Hand COMMENTS:Higher values can be expected in females during menses. Performed By: #### L AB103, LAB20, LAB15 ####In House Cra: CHELSIE ISAACS ([id number])[address] Magnesium [Mass/Vol] 4.5 mg/dL High 1.6-2.6 [facility] Comment on above: Result Comment: SHARA Hand COMMENTS:Higher values can be expected in females during menses. Performed By: #### L AB103, POC111, LAB15 ####In House Cra: CHELSIE ISAACS ([id number])[facility])[address] [place] [address] No Panel Informationon 01-12 Interpretation and review of laboratory results Abnormal [facility] Interpretation and review of laboratory results Abnormal [facility] Interpretation and review of laboratory results Abnormal [facility] Interpretation and review of laboratory results Abnormal [facility] Interpretation and review of laboratory results Abnormal [facility] Interpretation and review of laboratory results Abnormal [facility] Blood Expiration Date [facility] Dispense Status Transfused [facility] Product Blood Type 5100 [facility] PRODUCT CODE [id number] [facility] A[facility] O [facility] Number [id number] [facility] RH Positive [facility] Unit Volume 80 ml [facility] Interpretation and review of laboratory results Abnormal [facility] Blood Expiration Date S [facility] Dispense Status Transfused [facility] Product Blood Type 6200 [facility] PRODUCT CODE [id number] [facility] ABO A [facility] Unit Number [id number] [facility] RH Positive [facility] Unit Volume 214 ml [facility] Blood Expiration Date S [facility] Dispense Status Transfused [facility] Product Blood Type 7300 [facility] PRODUCT CODE [id number] [facility] ABO B [facility] Unit Number [id number] [facility] RH Positive [facility] Unit Volume 300 mL [facility] Interpretation and review of laboratory results Abnormal [facility] Blood Expiration Date [id number] S [facility] Crossmatch interpretation COMP [facility] Dispense Status Released from Crossmatch [facility] Dispense Status Transfused [facility] Product Blood Type 600 [facility] PRODUCT CODE [id number] [facility] Unit ABO A [facility] Unit Number [id number] [facility] Unit Number [id number] [facility] RH Negative [facility] Unit Volume 300 mL [facility] No Panel InformationOrdered By: Salud Grant on 01-12-2025 Amount Of Oxygen 4 [facility] Interpretation and review of laboratory results Abnormal [facility] Source Of Oxygen Nasal Cannula (LPM) [facility] Nursing Noteon 01-12-2025 Nursing Note 0701- pt taken to OR. Normal [facility] Nursing Note Normal [facility] Op Noteon 01-12-2025 Op Note Normal [facility] PHOSPHORUSon 01-12-2025 Phosphate [Mass/Vol] 3.4 mg/dL Normal 2.3-4.7 [facility] Comment on above: Performed By: #### L AB103, [id number], LAB15 ####In House Cra: CHELSIE ISAACS ([id number])[facility])[address] [place] [address] Phosphate [Mass/Vol] 4.8 mg/dL High 2.3-4.7 [facility] Comment on above: Performed By: #### L AB18, LAB17, [id number] ####In House Cra: CHELSIE ISAACS ([id number])[facility])[address] [place] [address] PROTHROMBIN TIMEon 5 INR Coag (PPP) [Relative time] 1.1 {INR} Normal 0.9-1.1 [facility] Comment on above: Result Comment: Sridhar [...] Myocardial Infarction Performed By: #### Joseph AB325, [id number] ####In House Cra: CHELSIE ISAACS ([id number])[facility] ([facility])[address] [place] [address] PT Coag (PPP) [Time] 11.2 s Normal 9.0-12.0 [facility] Comment on above: Performed By: #### L AB325, [id number] ####In House Cra: CHELSIE ISAACS ([id number])[facility] ([facility])[address] [place] [address] PROTIME AND APTTon 06-02-202 5 aPTT Coag (Bld) [Time] 60.3 s High 20.0-30.5 [facility] Comment on above: Order Comment: Recom mend 15 to 30 minutes post transfusion Performed By: #### L AB314, [id number] ####In House Cra: CHELSIE ISAACS ([id number])[facility])[address] [place] [address] [place] INR Coag (PPP) [Relative time] 1.2 {INR} High 0.9-1.1 [facility] Comment on above: Order Comment: Recom [...] Myocardial Infarction Performed By: #### Joseph AB314, [id number] ####In House Cra: CHELSIE ISAACS ([id number])[facility])[address] [place] [address] [place] PT Coag (PPP) [Time] 13.0 s High 9.0-12.0 [facility] Comment on above: Order Comment: Recom mend 15 to 30 minutes post transfusion Performed By: #### L AB314, [id number] ####In House Cra: CHELSIE ISAACS ([id number])[facility] ([facility])[address] [place] [address] [place] aPTT Coag (Bld) [Time] 37.2 s High 20.0-30.5 [facility] Comment on above: Performed By: #### L [id number], [id number] ####In House Cra: CHELSIE ISAACS ([id number])[facility])[address] [place] [address] [place] INR Coag (PPP) [Relative time] 1.3 {INR} High 0.9-1.1 [facility] Comment on above: Result Comment: Sridhar [...] prevent Myocardial Infarction Performed By: #### Joseph [id number], [id number] ####In House Cra: CHELSIE ISAACS ([id number])[address] PT Coag (PPP) [Time] 13.8 s High 9.0-12.0 [facility] Comment on above: Performed By: #### Joseph [id number], [id number] ####In House Cra: CHELSIE ISAACS ([id number])[facility] ([facility])[address] [place] [address] aPTT Coag (Bld) [Time] 30.8 s High 20.0-30.5 [facility] Comment on above: Performed By: #### Joseph AB314, [id number] ####In House Cra: CHELSIE ISAACS ([id number])[address] INR Coag (PPP) [Relative time] 1.7 {INR} High 0.9-1.1 [facility] Comment on above: Result Comment: Sridhar [...] Myocardial Infarction Performed By: #### Joseph AB314, [id number] ####In House Cra: CHELSIE ISAACS ([id number])[facility] ([facility])[address] [place] [address] PT Coag (PPP) [Time] 17.4 s High 9.0-12.0 [facility] Comment on above: Performed By: #### L AB314, [id number] ####In House Cra: CHELSIE ISAACS ([id number])[facility])[address] [place] [address] Progress Noteon 01-12-2025 Progress [facility] Progress Note Normal [facility] XR CHEST 1 VIEWon 01-12-2025 XR CHEST 1 VIEW Normal [facility] XR CHEST 1 VIEW Normal [facility] XR Chest Single viewon 01-12 [facility] Radiology Study observation (narrative) [facility] XR Chest Single viewOrdered By: Micki Coker on 01-12-2025 [facility] Work Phone: 30on 01-11-2025 30 Normal [facility] 30 Normal [facility] APTTon 01-11-2025 aPTT Coag (Bld) [Time] 91.1 s High 20.0-30.5 [facility] Comment on above: Result Comment: VIJAYE R COMMENTS:NOTE: The therapeutic time for Heparin anticoagulation, based on Xa activity inhibition, is an APTT of 46-80 seconds. Performed By: #### L AB325 ####In House Cra: CHELSIE ISAACS ([id number])[facility])[address] [place] [address] aPTT Coag (Bld) [Time] 49.5 s High 20.0-30.5 [facility] Comment on above: Result Comment: SHARA Hand COMMENTS:NOTE: The therapeutic time for Heparin anticoagulation, based on Xa activity inhibition, is an APTT of 46-80 seconds. Performed By: #### L AB325 ####In House Cra: CHELSIE ISAACS ([id number])[facility])[address] [place] [address] aPTT Coag (Bld) [Time] 57.9 s High 20.0-30.5 [facility] Comment on above: Result Comment: SHARA Hand COMMENTS:NOTE: The therapeutic time for Heparin anticoagulation, based on Xa activity inhibition, is an APTT of 46-80 seconds. Performed By: #### L AB325 ####In House Cra: CHELSIE ISAACS ([id number])[facility] ([facility])[address] [place] [address] BLOOD TYPE AND SCREEN GELon 01-11-2025 ABO GROUPING A Normal [facility] Comment on above: Order Comment: Speci men is valid for 3 days - nurse to verify valid specimen Performed By: #### L AB276 ####In House Cra: CHELSIE ISAACS ([id number])[facility] ([facility])[address] [place] [address] RH TYPE IN BLOOD Positive Normal [facility] Comment on above: Order Comment: Speci men is valid for 3 days - nurse to verify valid specimen Performed By: #### L AB276 ####In House Cra: CHELSIE ISAACS ([id number])[facility] ([facility])[address] [place] [address] Basic Metabolic Profile (BMP )on 01-11-2025 BUN Normal 4-19 [facility] Comment on above: Result Comment: Canc elled via OM: Order cancelled - Patient discharged Performed By: #### L 500.2500 ####[facility] [address] [facility] [id number] Result Comment: Canc elled via OM: MD Ordered Performed By: #### L 499.0043 #### [facility] Laboratory [address] [place], [place], [id number] BUN/CRE Normal 10-20 [facility] Comment on above: Result Comment: Canc elled via OM: Order cancelled - Patient discharged Performed By: #### L 500.2500 ####[facility] [address] [place], [address] Result Comment: Canc elled via OM: MD Ordered Performed By: #### L 499.0043 #### [facility] Laboratory [address] [place], [address] Calcium Normal 7.6-11.0 [facility] Comment on above: Result Comment: Canc elled via OM: Order cancelled - Patient discharged Performed By: #### L 500.2500 ####[facility] [address] [place], [address] Result Comment: Canc elled via OM: MD Ordered Performed By: #### L 499.0043 #### [facility] Laboratory [address] [place], [address] CL Normal 98-108 [facility] Comment on above: Result Comment: Canc elled via OM: Order cancelled - Patient discharged Performed By: #### L 500.2500 ####[facility] [address] [place], [address] Result Comment: Canc elled via OM: MD Ordered Performed By: #### L 499.0043 #### [facility] Laboratory [address] [place], [address] CO2 Normal 21.0-32.0 [facility] Comment on above: Result Comment: Canc elled via OM: Order cancelled - Patient discharged Performed By: #### L 500.2500 ####[facility] [address] [place], [address] Result Comment: Canc elled via OM: MD Ordered Performed By: #### L 499.0043 #### [facility] Laboratory [address] [place], [address] CREAT,SERUM Normal 0.70-1.20 [facility] Comment on above: Result Comment: Canc elled via OM: Order cancelled - Patient discharged Performed By: #### L 500.2500 ####[facility] [address] [place], [address] Result Comment: Canc elled via OM: MD Ordered Performed By: #### L 499.0043 #### [facility] Laboratory [address] [place], [address] eGFR Normal >60 [facility] Comment on above: Result Comment: Canc elled via OM: Order cancelled - Patient discharged Performed By: #### L 500.2500 ####[facility] [address] [place], [address] Result Comment: Canc elled via OM: MD Ordered Performed By: #### L 499.0043 #### [facility] Laboratory [address] [place], [address] GAP Normal 5-15 [facility] Comment on above: Result Comment: Canc elled via OM: Order cancelled - Patient discharged Performed By: #### L 500.2500 ####[facility] [address] [place], [address] Result Comment: Canc elled via OM: MD Ordered Performed By: #### L 499.0043 #### [facility] Laboratory [address] [place], [address] GLU Normal 70-99 [facility] Comment on above: Result Comment: Canc elled via OM: Order cancelled - Patient discharged Performed By: #### L 500.2500 ####[facility] [address] [place], [address] Result Comment: Canc elled via OM: MD Ordered Performed By: #### L 499.0043 #### [facility] Laboratory [address] [place], [address] Potassium Normal 3.3-5.1 [facility] Comment on above: Result Comment: Canc elled via OM: Order cancelled - Patient discharged Performed By: #### L 500.2500 ####[facility] [address] [place], [place], [id number] Result Comment: Canc elled via OM: MD Ordered Performed By: #### L 499.0043 #### [facility] Laboratory [address] [place], [place], [address] Basic Metabolic Profile (BMP) Normal 133-145 [facility] Comment on above: Result Comment: Canc elled via OM: Order cancelled - Patient discharged Performed By: #### L 500.2500 ####[facility] [address] [place], [place], [address] Result Comment: Canc elled via OM: MD Ordered Performed By: #### L 499.0043 #### [facility] Laboratory [address] [place], [place], [id number] CBC (HEMOGRAM)on 01-11-2025 Erythrocyte distribution width (RBC) [Ratio] 14.1 % Normal 11.5-15.0 [facility] Comment on above: Performed By: #### L AB294 ####In House Cra: CHELSIE ISAACS ([id number])[address] Hematocrit (Bld) [Volume fraction] 38.3 % Normal 35.0-47.0 [facility] Comment on above: Performed By: #### L AB294 ####In House Cra: CHELSIE ISAACS ([id number])[facility])[address] [place] [address] Hemoglobin (Bld) [Mass/Vol] 12.6 g/dL Normal 11.7-16.0 [facility] Comment on above: Performed By: #### L AB294 ####In House Cra: CHELSIE ISAACS ([id number])[facility])[address] [place] [address] MCH (RBC) [Entitic mass] 29.1 pg Normal 26.0-34.0 [facility] Comment on above: Performed By: #### L AB294 ####In House Cra: CHELSIE ISAACS ([id number])[facility] ([facility])[address] [place] [address] MCHC 32.9 % Normal 30.5-36.0 [facility] Comment on above: Performed By: #### L AB294 ####In House Cra: CHELSIE ISAACS ([id number])[facility] ([facility])[address] [place] [address] MCV (RBC) [Entitic vol] 88.5 fL Normal 77.0-99.0 [facility] Comment on above: Performed By: #### L AB294 ####In House Cra: CHELSIE ISAACS ([id number])[facility])[address] [place] [address] Platelet mean volume (Bld) [Entitic vol] 9.9 fL Normal 9.0-12.7 [facility] Comment on above: Performed By: #### L AB294 ####In House Cra: CHELSIE ISAACS ([id number])[facility] ([facility])[address] [place] [address] Platelets (Bld) [#/Vol] 213 10*3/uL Normal 140-440 [facility] Comment on above: Performed By: #### L AB294 ####In House Cra: CHELSIE ISAACS ([id number])[facility])[address] [place] [address] RBC (Bld) [#/Vol] 4.33 10*6/uL Normal 3.80-5.20 [facility] Comment on above: Performed By: #### L AB294 ####In House Cra: CHELSIE ISAACS ([id number])[facility])[address] [place] [address] WBC (Bld) [#/Vol] 6.0 10*3/uL Normal 3.6-10.7 [facility] Comment on above: Performed By: #### L AB294 ####In House Cra: CHELSIE ISAACS ([id number])[facility] ([facility])[address] [place] [address] CBC-Complete Blood Cnt No Di ffon 01-11-2025 HCT Normal 37-47 [facility] Comment on above: Result Comment: Canc elled via OM: Order cancelled - Patient discharged Performed By: #### L 100.0500 ####[facility] [address] [place], [address] HGB Normal 12.0-15.0 [facility] Comment on above: Result Comment: Canc elled via OM: Order cancelled - Patient discharged Performed By: #### L 100.0500 ####[facility] [address] [place], [address] MCH Normal 27.0-32.0 [facility] Comment on above: Result Comment: Canc elled via OM: Order cancelled - Patient discharged Performed By: #### L 100.0500 ####[facility] [address] [place], [address] MCHC Normal 32-36 [facility] Comment on above: Result Comment: Canc elled via OM: Order cancelled - Patient discharged Performed By: #### L 100.0500 ####[facility] [address] [place], [address] MCV Normal 81-99 [facility] Comment on above: Result Comment: Canc elled via OM: Order cancelled - Patient discharged Performed By: #### L 100.0500 ####[facility] [address] [place], [address] PLT Normal 150-450 [facility] Comment on above: Result Comment: Canc elled via OM: Order cancelled - Patient discharged Performed By: #### L 100.0500 ####[facility] [address] [place], [address] RBC Normal 4.2-5.4 [facility] Comment on above: Result Comment: Canc elled via OM: Order cancelled - Patient discharged Performed By: #### L 100.0500 ####[facility] [address] [place], [address] RDW CV Normal 11.6-14.6 [facility] Comment on above: Result Comment: Canc elled via OM: Order cancelled - Patient discharged Performed By: #### L 100.0500 ####[facility] [address] [place], [address] RDW SD Normal 35.1-43.9 [facility] Comment on above: Result Comment: Canc elled via OM: Order cancelled - Patient discharged Performed By: #### L 100.0500 ####[facility] [address] [place], [address] WBC Normal 4.4-11.0 [facility] Comment on above: Result Comment: Canc elled via OM: Order cancelled - Patient discharged Performed By: #### L 100.0500 ####[facility] [address] [place], [address] COMPREHENSIVE METABOLIC PANE [facility] 01-11-2025 Albumin [Mass/Vol] 3.3 g/dL Low 3.4-4.8 [facility] Comment on above: Performed By: #### L AB17 ####In House Cra: CHELSIE ISAACS ([id number])[address] ALP [Catalytic activity/Vol] 82 U/L Normal 40-150 [facility] Comment on above: Performed By: #### L AB17 ####In House Cra: CHELSIE ISAACS ([id number])[id number] [place] [address] ALT [Catalytic activity/Vol] 29 U/L Normal <30 [facility] Comment on above: Performed By: #### L AB17 ####In House Cra: CHELSIE ISAACS ([id number])[facility] [place] [address] Anion gap [Moles/Vol] 12 mmol/L Normal 3-13 [facility] Comment on above: Performed By: #### L AB17 ####In House Cra: CHELSIE ISAACS ([id number])[facility] ([facility])[address] [place] [address] AST [Catalytic activity/Vol] 34 U/L High <34 [facility] Comment on above: Performed By: #### L AB17 ####In House Cra: CHELSIE ISAACS ([id number])[facility] ([facility])[address] [place] [address] Bilirubin [Mass/Vol] 0.3 mg/dL Normal <1.2 [facility] Comment on above: Performed By: #### L AB17 ####In House Cra: CHELSIE ISAACS ([id number])[facility] ([facility])[address] [place] [address] Calcium [Mass/Vol] 8.9 mg/dL Normal 8.8-10.0 [facility] Comment on above: Performed By: #### L AB17 ####In House Cra: CHELSIE ISAACS ([id number])[facility] ([facility])[address] [place] [address] Chloride [Moles/Vol] 108 mmol/L High 98-107 [facility] Comment on above: Performed By: #### L AB17 ####In House Cra: CHELSIE ISAACS ([id number])[facility] ([facility])[address] [place] [address] [place] CO2 [Moles/Vol] 19 mmol/L Low 23-31 [facility] Comment on above: Performed By: #### L AB17 ####In House Cra: CHELSIE ISAACS ([id number])[facility] ([facility])[address] [place] [address] Creatinine [Mass/Vol] 0.85 mg/dL Normal 0.57-1.11 [facility] Comment on above: Performed By: #### L AB17 ####In House Cra: CHELSIE ISAACS ([id number])[facility])[address] [place] [address] [place] GLOMERULAR FILTRATION RATE ML/MIN/1.73 SQ M.PREDICTED 70.2 mL/min/1.73m*2 Normal >60.0 [facility] Comment on above: Result Comment: Calc ulation based on the Chronic Kidney Disease Epidemiology Collaboration (CKD-EPI) equation refit without adjustment for race Performed By: #### L AB17 ####In House Cra: CHELSIE ISAACS ([id number])[facility] ([facility])[address] [place] [address] [place] Glucose [Mass/Vol] 93 mg/dL Normal 82-115 [facility] Comment on above: Performed By: #### L AB17 ####In House Cra: CHELSIE ISAACS ([id number])[facility])[address] [place] [address] [place] Potassium [Moles/Vol] 4.0 mmol/L Normal 3.5-5.1 [facility] Comment on above: Result Comment: [facility] potassium values may be up to 0.5 mmol/L lower than serum values. Performed By: #### L AB17 ####In House Cra: CHELSIE ISAACS ([id number])[facility] ([facility])[address] [place] [address] [place] Protein [Mass/Vol] 7.0 g/dL Normal 6.4-8.3 [facility] Comment on above: Performed By: #### L AB17 ####In House Cra: CHELSIE ISAACS ([id number])[facility] ([facility])[address] [place] [address] [place] Sodium [Moles/Vol] 139 mmol/L Normal 136-145 [facility] Comment on above: Performed By: #### L AB17 ####In House Cra: CHELSIE ISAACS ([id number])[facility])[address] [place] [address] [place] Urea nitrogen [Mass/Vol] 26 mg/dL High 9-23 [facility] Comment on above: Performed By: #### L AB17 ####In House Cra: CHELSIE ISAACS ([id number])[facility])[address] [place] [address] Progress Noteon 01-11-2025 Progress Note Normal [facility] Progress Note Nutrition rescreen completed. Chart reviewed. Patient to be monitored and followed by the diet structures technician. Tamara Blackburn, DT Normal [facility] APTTon 01-10-2025 aPTT Coag (Bld) [Time] 59.0 s High 20.0-30.5 [facility] Comment on above: Result Comment: VIJAYE R COMMENTS:NOTE: The therapeutic time for Heparin anticoagulation, based on Xa activity inhibition, is an APTT of 46-80 seconds. Performed By: #### L AB325 ####In House Cra: CHELSIE ISAACS ([id number])[facility])[address] [place] [address] aPTT Coag (Bld) [Time] 48.5 s High 20.0-30.5 [facility] Comment on above: Result Comment: SHARA Hand COMMENTS:NOTE: The therapeutic time for Heparin anticoagulation, based on Xa activity inhibition, is an APTT of 46-80 seconds. Performed By: #### L AB325 ####In House Cra: CHELSIE ISAACS ([id number])[facility])[address] [place] [address] aPTT Coag (Bld) [Time] 51.5 s High 20.0-30.5 [facility] Comment on above: Result Comment: SHARA Hand COMMENTS:NOTE: The therapeutic time for Heparin anticoagulation, based on Xa activity inhibition, is an APTT of 46-80 seconds. Performed By: #### L AB325 ####In House Cra: CHELSIE ISAACS ([id number])[facility])[address] [place] [address] Basic Metabolic Profile (BMP )on 01-10-2025 BUN Normal 4-19 [facility] Comment on above: Result Comment: Kar molina via OM: Ordered Performed By: #### L 300.4310 #### [facility] [address] [place], [address] BUN/CRE Normal 10-20 [facility] Comment on above: Result Comment: Canc elled via OM: MD Ordered Performed By: #### L 300.4310 #### [facility] [address] [place], [address] Calcium Normal 7.6-11.0 [facility] Comment on above: Result Comment: Canc elled via OM: MD Ordered Performed By: #### L 300.4310 #### [facility] [address] [place], [address] CL Normal 98-108 [facility] Comment on above: Result Comment: Canc elled via OM: MD Ordered Performed By: #### L 300.4310 #### [facility] [address] [place], [address] CO2 Normal 21.0-32.0 [facility] Comment on above: Result Comment: Canc elled via OM: MD Ordered Performed By: #### L 300.4310 #### [facility] [address] [place], [address] CREAT,SERUM Normal 0.70-1.20 [facility] Comment on above: Result Comment: Canc elled via OM: MD Ordered Performed By: #### L 300.4310 #### [facility] [address] [place], [address] eGFR Normal >60 [facility] Comment on above: Result Comment: Canc elled via OM: MD Ordered Performed By: #### L 300.4310 #### [facility] [address] [place], [address] GAP Normal 5-15 [facility] Comment on above: Result Comment: Canc elled via OM: MD Ordered Performed By: #### L 300.4310 #### [facility] [address] [place], [address] GLU Normal 70-99 [facility] Comment on above: Result Comment: Canc elled via OM: MD Ordered Performed By: #### L 300.4310 #### [facility] [address] [place], [address] Potassium Normal 3.3-5.1 [facility] Comment on above: Result Comment: Canc elled via OM: MD Ordered Performed By: #### L 300.4310 #### [facility] [address] [place], [address] Basic Metabolic Profile (BMP) Normal 133-145 [facility] Comment on above: Result Comment: Canc elled via OM: MD Ordered Performed By: #### L 300.4310 #### [facility] [address] [place], [address] CBC (HEMOGRAM)on 01-10-2025 Erythrocyte distribution width (RBC) [Ratio] 14.2 % Normal 11.5-15.0 [facility] Comment on above: Performed By: #### L AB294 ####In House Cra: CHELSIE ISAACS ([id number])[address] Hematocrit (Bld) [Volume fraction] 39.8 % Normal 35.0-47.0 [facility] Comment on above: Performed By: #### L AB294 ####In House Cra: CHELSIE ISAACS ([id number])[facility] ([facility])[address] [place] [address] Hemoglobin (Bld) [Mass/Vol] 12.7 g/dL Normal 11.7-16.0 [facility] Comment on above: Performed By: #### L AB294 ####In House Cra: CHELSIE ISAACS ([id number])[facility])[address] [place] [address] MCH (RBC) [Entitic mass] 28.3 pg Normal 26.0-34.0 [facility] Comment on above: Performed By: #### L AB294 ####In House Cra: CHELSIE ISAACS ([id number])[facility])[address] [place] [address] MCHC 31.9 % Normal 30.5-36.0 [facility] Comment on above: Performed By: #### L AB294 ####In House Cra: CHELSIE ISAACS ([id number])[facility])[address] [place] [address] MCV (RBC) [Entitic vol] 88.8 fL Normal 77.0-99.0 [facility] Comment on above: Performed By: #### L AB294 ####In House Cra: CHELSIE ISAACS ([id number])[facility])[address] [place] [address] Platelet mean volume (Bld) [Entitic vol] 9.6 fL Normal 9.0-12.7 [facility] Comment on above: Performed By: #### L AB294 ####In House Cra: CHELSIE ISAACS ([id number])[facility])[address] [place] [address] Platelets (Bld) [#/Vol] 228 10*3/uL Normal 140-440 [facility] Comment on above: Performed By: #### L AB294 ####In House Cra: CHELSIE ISAACS ([id number])[facility])[address] [place] [address] RBC (Bld) [#/Vol] 4.48 10*6/uL Normal 3.80-5.20 [facility] Comment on above: Performed By: #### L AB294 ####In House Cra: CHELSIE ISAACS ([id number])[facility])[address] [place] [address] WBC (Bld) [#/Vol] 5.7 10*3/uL Normal 3.6-10.7 [facility] Comment on above: Performed By: #### L AB294 ####In House Cra: CHELSIE ISAACS ([id number])[facility] ([facility])[address] [place] [address] COMPREHENSIVE METABOLIC PANE Lino 01-10-2025 Albumin [Mass/Vol] 3.3 g/dL Low 3.4-4.8 [facility] Comment on above: Performed By: #### L AB17 ####In House Cra: CHELSIE ISAACS ([id number])[facility])[address] [place] [address] ALP [Catalytic activity/Vol] 83 U/L Normal 40-150 [facility] Comment on above: Performed By: #### L AB17 ####In House Cra: CHELSIE ISAACS ([id number])[facility] ([facility])[address] [place] [address] ALT [Catalytic activity/Vol] 24 U/L Normal <30 [facility] Comment on above: Performed By: #### L AB17 ####In House Cra: CHELSIE ISAACS ([id number])[facility])[address] [place] [address] Anion gap [Moles/Vol] 9 mmol/L Normal 3-13 [facility] Comment on above: Performed By: #### L AB17 ####In House Cra: CHELSIE ISAACS ([id number])[facility] ([facility])[address] [place] [address] AST [Catalytic activity/Vol] 29 U/L Normal <34 [facility] Comment on above: Performed By: #### L AB17 ####In House Cra: CHELSIE ISAACS ([id number])[facility] ([facility])[address] [place] [address] [place] Bilirubin [Mass/Vol] 0.5 mg/dL Normal <1.2 [facility] Comment on above: Performed By: #### L AB17 ####In House Cra: CHELSIE ISAACS ([id number])[facility] ([facility])[address] [place] [address] Calcium [Mass/Vol] 9.2 mg/dL Normal 8.8-10.0 [facility] Comment on above: Performed By: #### L AB17 ####In House Cra: CHELSIE ISAACS ([id number])[facility] ([facility])[address] [place] [address] Chloride [Moles/Vol] 109 mmol/L High 98-107 [facility] Comment on above: Performed By: #### L AB17 ####In House Cra: CHELSIE ISAACS ([id number])[facility] ([facility])[address] [place] [address] CO2 [Moles/Vol] 23 mmol/L Normal 23-31 [facility] Comment on above: Performed By: #### L AB17 ####In House Cra: CHELSIE ISAACS ([id number])[facility] ([facility])[address] [place] [address] Creatinine [Mass/Vol] 0.75 mg/dL Normal 0.57-1.11 [facility] Comment on above: Performed By: #### L AB17 ####In House Cra: CHELSIE ISAACS ([id number])[facility] ([facility])[address] [place] [address] [place] GLOMERULAR FILTRATION RATE ML/MIN/1.73 SQ M.PREDICTED 81.6 mL/min/1.73m*2 Normal >60.0 [facility] Comment on above: Result Comment: Calc ulation based on the Chronic Kidney Disease Epidemiology Collaboration (CKD-EPI) equation refit without adjustment for race Performed By: #### L AB17 ####In House Cra: CHELSIE ISAACS ([id number])[facility] ([facility])[address] [place] [address] [place] Glucose [Mass/Vol] 94 mg/dL Normal 82-115 [facility] Comment on above: Performed By: #### L AB17 ####In House Cra: CHELSIE ISAACS ([id number])[facility] ([facility])[address] [place] [address] [place] Potassium [Moles/Vol] 3.7 mmol/L Normal 3.5-5.1 [facility] Comment on above: Result Comment: [facility] potassium values may be up to 0.5 mmol/L lower than serum values. Performed By: #### L AB17 ####In House Cra: CHELSIE ISAACS ([id number])[facility] ([facility])[address] [place] [address] Protein [Mass/Vol] 6.6 g/dL Normal 6.4-8.3 [facility] Comment on above: Performed By: #### L AB17 ####In House Cra: CHELSIE ISAACS ([id number])[facility] ([facility])[address] [place] [address] Sodium [Moles/Vol] 141 mmol/L Normal 136-145 [facility] Comment on above: Performed By: #### L AB17 ####In House Cra: CHELSIE ISAACS ([id number])[facility] ([facility])[address] [place] [address] Urea nitrogen [Mass/Vol] 18 mg/dL Normal 9-23 [facility] Comment on above: Performed By: #### L AB17 ####In House Cra: CHELSIE ISAACS ([id number])[facility])[address] [place] [address] [id number] 01-09-2025 [id number] Normal [facility] ACT Activated Clotting Timeo n 01-09-2025 ACTk CLOT TIME 147 sec High 74-137 [facility] Comment on above: Performed By: #### L 9100.0100 ####[facility] [id number] [place], [place], [address] APTTon 01-09-2025 aPTT Coag (Bld) [Time] 46.3 s High 20.0-30.5 [facility] Comment on above: Result Comment: SHARA Hand COMMENTS:NOTE: The therapeutic time for Heparin anticoagulation, based on Xa activity inhibition, is an APTT of 46-80 seconds. Performed By: #### L AB325 ####In House Cra: CHELSIE ISAACS ([id number])[facility])[address] aPTT Coag (Bld) [Time] 26.8 s Normal 20.0-30.5 [facility] Comment on above: Result Comment: SHARA Hand COMMENTS:NOTE: The therapeutic time for Heparin anticoagulation, based on Xa activity inhibition, is an APTT of 46-80 seconds. Performed By: #### L AB325 ####In House Cra: CHELSIE ISAACS ([id number])[facility] ([facility])[address] [place] [address] Basic Metabolic Profile (BMP )on 01-09-2025 BUN Normal 4-19 [facility] Comment on above: Result Comment: Canc elled via OM: Order cancelled - Patient discharged Performed By: #### L 300.4310 #### [facility] [address] [place], [address] Result Comment: Canc elled via OM: MD Ordered BUN/CRE Normal 10-20 [facility] Comment on above: Result Comment: Canc elled via OM: Order cancelled - Patient discharged Performed By: #### L 300.4310 #### [facility] [address] [place], [address] Result Comment: Canc elled via OM: MD Ordered Calcium Normal 7.6-11.0 [facility] Comment on above: Result Comment: Canc elled via OM: Order cancelled - Patient discharged Performed By: #### L 300.4310 #### [facility] [address] [place], [address] Result Comment: Canc elled via OM: MD Ordered CL Normal 98-108 [facility] Comment on above: Result Comment: Canc elled via OM: Order cancelled - Patient discharged Performed By: #### L 300.4310 #### [facility] [address] [place], [address] Result Comment: Canc elled via OM: MD Ordered CO2 Normal 21.0-32.0 [facility] Comment on above: Result Comment: Canc elled via OM: Order cancelled - Patient discharged Performed By: #### L 300.4310 #### [facility] [address] [place], [address] Result Comment: Canc elled via OM: MD Ordered CREAT,SERUM Normal 0.70-1.20 [facility] Comment on above: Result Comment: Canc elled via OM: Order cancelled - Patient discharged Performed By: #### L 300.4310 #### [facility] [address] [place], [address] Result Comment: Canc elled via OM: MD Ordered eGFR Normal >60 [facility] Comment on above: Result Comment: Canc elled via OM: Order cancelled - Patient discharged Performed By: #### L 300.4310 #### [facility] [address] [place], [address] Result Comment: Canc elled via OM: MD Ordered GAP Normal 5-15 [facility] Comment on above: Result Comment: Canc elled via OM: Order cancelled - Patient discharged Performed By: #### L 300.4310 #### [facility] [address] [place], [address] Result Comment: Canc elled via OM: MD Ordered GLU Normal 70-99 [facility] Comment on above: Result Comment: Canc elled via OM: Order cancelled - Patient discharged Performed By: #### L 300.4310 #### [facility] [address] [place], [address] Result Comment: Canc elled via OM: MD Ordered Potassium Normal 3.3-5.1 [facility] Comment on above: Result Comment: Canc elled via OM: Order cancelled - Patient discharged Performed By: #### L 300.4310 #### [facility] [address] [place], [address] Result Comment: Canc elled via OM: MD Ordered Basic Metabolic Profile (BMP) Normal 133-145 [facility] Comment on above: Result Comment: Canc elled via OM: Order cancelled - Patient discharged Performed By: #### L 300.4310 #### [facility] [address] [place], [address] Result Comment: Canc elled via OM: Ordered CBC (HEMOGRAM)on 01-09-2025 Erythrocyte distribution width (RBC) [Ratio] 14.3 % Normal 11.5-15.0 [facility] Comment on above: Performed By: #### L AB294 ####In House Cra: CHELSIE ISAACS ([id number])[facility])[address] [place] [address] Hematocrit (Bld) [Volume fraction] 40.1 % Normal 35.0-47.0 [facility] Comment on above: Performed By: #### L AB294 ####In House Cra: CHELSIE ISAACS ([id number])[facility])[address] [place] [address] Hemoglobin (Bld) [Mass/Vol] 13.2 g/dL Normal 11.7-16.0 [facility] Comment on above: Performed By: #### L AB294 ####In House Cra: CHELSIE ISAACS ([id number])[facility] ([facility])[address] [place] [address] MCH (RBC) [Entitic mass] 28.9 pg Normal 26.0-34.0 [facility] Comment on above: Performed By: #### L AB294 ####In House Cra: CHELSIE ISAACS ([id number])[facility])[address] [place] [address] MCHC 32.9 % Normal 30.5-36.0 [facility] Comment on above: Performed By: #### L AB294 ####In House Cra: CHELSIE ISAACS ([id number])[facility] ([facility])[address] [place] [address] MCV (RBC) [Entitic vol] 87.9 fL Normal 77.0-99.0 [facility] Comment on above: Performed By: #### L AB294 ####In House Cra: CHELSIE ISAACS ([id number])[facility])[address] [place] [address] Platelet mean volume (Bld) [Entitic vol] 9.6 fL Normal 9.0-12.7 [facility] Comment on above: Performed By: #### L AB294 ####In House Cra: CHELSIE ISAACS ([id number])[facility] ([facility])[address] [place] [address] Platelets (Bld) [#/Vol] 232 10*3/uL Normal 140-440 [facility] Comment on above: Performed By: #### L AB294 ####In House Cra: CHELSIE ISAACS ([id number])[facility])[address] [place] [address] RBC (Bld) [#/Vol] 4.56 10*6/uL Normal 3.80-5.20 [facility] Comment on above: Performed By: #### L AB294 ####In House Cra: CHELSIE ISAACS ([id number])[facility])[address] [place] [address] WBC (Bld) [#/Vol] 5.0 10*3/uL Normal 3.6-10.7 [facility] Comment on above: Performed By: #### L AB294 ####In House Cra: CHELSIE ISAACS ([id number])[facility] ([facility])[address] [place] [address] CBC-Complete Blood Cnt No Di ffon 01-09-2025 HCT Normal 37-47 [facility] Comment on above: Result Comment: Canc elled via OM: Order cancelled - Patient discharged Performed By: #### L 499.0043 #### [facility] [address] [place], [address] HGB Normal 12.0-15.0 [facility] Comment on above: Result Comment: Canc elled via OM: Order cancelled - Patient discharged Performed By: #### L 499.0043 #### [facility] [address] [place], [address] MCH Normal 27.0-32.0 [facility] Comment on above: Result Comment: Canc elled via OM: Order cancelled - Patient discharged Performed By: #### L 499.0043 #### [facility] [address] [place], [address] MCHC Normal 32-36 [facility] Comment on above: Result Comment: Canc elled via OM: Order cancelled - Patient discharged Performed By: #### L 499.0043 #### [facility] [address] [place], [address] MCV Normal 81-99 [facility] Comment on above: Result Comment: Canc elled via OM: Order cancelled - Patient discharged Performed By: #### L 499.0043 #### [facility] [address] [place], [address] PLT Normal 150-450 [facility] Comment on above: Result Comment: Canc elled via OM: Order cancelled - Patient discharged Performed By: #### L 499.0043 #### [facility] [address] [place], [address] RBC Normal 4.2-5.4 [facility] Comment on above: Result Comment: Canc elled via OM: Order cancelled - Patient discharged Performed By: #### L 499.0043 #### [facility] [address] [place], [address] RDW CV Normal 11.6-14.6 [facility] Comment on above: Result Comment: Canc elled via OM: Order cancelled - Patient discharged Performed By: #### L 499.0043 #### [facility] [address] [place], [place], [address] RDW SD Normal 35.1-43.9 [facility] Comment on above: Result Comment: Canc elled via OM: Order cancelled - Patient discharged Performed By: #### L 499.0043 #### [facility] [address] [place], [place], [id number] WBC Normal 4.4-11.0 [facility] Comment on above: Result Comment: Canc elled via OM: Order cancelled - Patient discharged Performed By: #### L 499.0043 #### [facility] [address] [place], [place], [id number] COMPREHENSIVE METABOLIC PANE [facility] 01-09-2025 Albumin [Mass/Vol] 3.5 g/dL Normal 3.4-4.8 [facility] Comment on above: Performed By: #### Joseph GONZALES18, LAB17 ####In House Cra: CHELSIE ISAACS ([id number])[facility])[address] [place] [address] ALP [Catalytic activity/Vol] 92 U/L Normal 40-150 [facility] Comment on above: Performed By: #### Joseph GONZALES18, LAB17 ####In House Cra: CHELSIE ISAACS ([id number])[facility] ([facility])[address] [place] [address] [place] ALT [Catalytic activity/Vol] 22 U/L Normal <30 [facility] Comment on above: Performed By: #### Joseph AB18, LAB17 ####In House Cra: CHELSIE ISAACS ([id number])[facility] ([facility])[address] [place] [address] [place] Anion gap [Moles/Vol] 10 mmol/L Normal 3-13 [facility] Comment on above: Performed By: #### L AB18, LAB17 ####In House Cra: CHELSIE ISAACS ([id number])[facility] ([facility])[address] [place] [address] [place] AST [Catalytic activity/Vol] 28 U/L Normal <34 [facility] Comment on above: Performed By: #### L AB18, LAB17 ####In House Cra: CHELSIE ISAACS ([id number])[facility])[address] [place] [address] Bilirubin [Mass/Vol] 0.4 mg/dL Normal <1.2 [facility] Comment on above: Performed By: #### L AB18, LAB17 ####In House Cra: CHELSIE ISAACS ([id number])[facility])[address] [place] [address] Calcium [Mass/Vol] 9.9 mg/dL Normal 8.8-10.0 [facility] Comment on above: Performed By: #### L AB18, LAB17 ####In House Cra: CHELSIE ISAACS ([id number])[facility] ([facility])[address] [place] [address] Chloride [Moles/Vol] 105 mmol/L Normal 98-107 [facility] Comment on above: Performed By: #### L AB18, LAB17 ####In House Cra: CHELSIE ISAACS ([id number])[facility] ([facility])[address] [place] [address] CO2 [Moles/Vol] 21 mmol/L Low 23-31 [facility] Comment on above: Performed By: #### L AB18, LAB17 ####In House Cra: CHELSIE ISAACS ([id number])[facility])[address] [place] [address] Creatinine [Mass/Vol] 0.71 mg/dL Normal 0.57-1.11 [facility] Comment on above: Performed By: #### L AB18, LAB17 ####In House Cra: CHELSIE ISAACS ([id number])[facility])[address] [place] [address] GLOMERULAR FILTRATION RATE ML/MIN/1.73 SQ M.PREDICTED 87.2 mL/min/1.73m*2 Normal >60.0 [facility] Comment on above: Result Comment: Calc ulation based on the Chronic Kidney Disease Epidemiology Collaboration (CKD-EPI) equation refit without adjustment for race Performed By: #### L AB18, LAB17 ####In House Cra: CHELSIE ISAACS ([id number])[facility])[address] [place] [address] Glucose [Mass/Vol] 102 mg/dL Normal 82-115 [facility] Comment on above: Performed By: #### L AB18, LAB17 ####In House Cra: CHELSIE ISAACS ([id number])[facility])[address] [place] [address] Potassium [Moles/Vol] 3.9 mmol/L Normal 3.5-5.1 [facility] Comment on above: Result Comment: [facility] potassium values may be up to 0.5 mmol/L lower than serum values. Performed By: #### L AB18, LAB17 ####In House Cra: CHELSIE ISAACS ([id number])[facility])[address] [place] [address] Protein [Mass/Vol] 7.4 g/dL Normal 6.4-8.3 [facility] Comment on above: Performed By: #### L AB18, LAB17 ####In House Cra: CHELSIE ISAACS ([id number])[facility])[address] [place] [address] Sodium [Moles/Vol] 136 mmol/L Normal 136-145 [facility] Comment on above: Performed By: #### L AB18, LAB17 ####In House Cra: CHELSIE ISAACS ([id number])[facility])[address] [place] [address] Urea nitrogen [Mass/Vol] 18 mg/dL Normal 9-23 [facility] Comment on above: Performed By: #### L AB18, LAB17 ####In House Cra: CHELSIE ISAACS ([phone])[facility])[address] [place] [address] CT CHEST WO IV CONTRASTon CT CHEST WO IV CONTRAST Normal [facility] Discharge Instructionon 05 0-2025 Discharge Instruction [facility] Medical Records Department [address] [place] [address] Instructions for Home/Discharge Instructions 01/09/25910 MR#: [id number] Acct: [id number] Name: RITIKA SANTANA Rep #: [id number] : 1945 79 From: Danial Salazar DO [...] Richard White MD; ERIN GRANT Signed Normal [facility] ECG 12-LEADon 01-09-2025 ECG 12-LEAD IMPRESSION: Sinus rhythm Nonspecific repol abnormality, diffuse leads No previous ECG available for comparison Electronically Signed On 01-09-2025 14:42:36 EDT by Tom Hoang Normal [facility] LIPID PANELon 01-09-2025 Cholesterol [Mass/Vol] 221 mg/dL High <200 [facility] Comment on above: Performed By: #### L AB18, LAB17 ####In House Cra: CHELSIE ISAACS ([id number])[facility] ([facility])[address] [place] [address] Cholesterol in HDL [Mass/Vol] 51 mg/dL Low >=60 [facility] Comment on above: Performed By: #### L AB18, LAB17 ####In House Cra: CHELSIE ISAACS ([phone])[facility])[address] [place] [address] Cholesterol.total/Choles terol in HDL [Mass ratio] 4 {ratio} Normal [facility] Comment on above: Result Comment: Ref Range:< 3 Low Risk for CHD3-6 Mod Risk for CHD> 6 High Risk for CHD Performed By: #### L AB18, LAB17 ####In House Cra: CHELSIE ISAACS ([id number])[facility] ([facility])[address] [place] [address] [place] LOW DENSITY LIPOPROTEIN 131 mg/dL High 0-<100 [facility] Comment on above: Performed By: #### L AB18, LAB17 ####In House Cra: CHELSIE ISAACS ([id number])[facility] ([facility])[address] [place] [address] [place] NON-HDL CHOLESTEROL, CALCULATED 170 High <130 [facility] Comment on above: Performed By: #### L AB18, LAB17 ####In House Cra: CHELSIE ISAACS ([id number])[facility] ([facility])[address] [place] [address] [place] Triglyceride [Mass/Vol] 196 mg/dL High <150 [facility] Comment on above: Performed By: #### L AB18, LAB17 ####In House Cra: CHELSIE ISAACS ([id number])[facility] ([facility])[address] [place] [address] VERY LOW DENSITY LIPOPROTEIN, CALCULATED 39 mg/dL High <=30 [facility] Comment on above: Performed By: #### L AB18, LAB17 ####In House Cra: CHELSIE ISAACS ([id number])[facility] ([facility])[address] [place] [address] MRSA BY PCRon 01-09-2025 MRSA BY PCR Normal [facility] Comment on above: Performed By: #### L [id number] ####In House Cra: CHELSIE ISAACS ([id number])[facility])[address] [place] [address] Nursing Noteon 01-09-2025 Nursing Note Normal [facility] PROTIME AND APTTon aPTT Coag (Bld) [Time] 41.6 s High 20.0-30.5 [facility] Comment on above: Performed By: #### L [id number] ####In House Cra: CHELSIE ISAACS ([id number])[facility])[address] [place] [address] INR Coag (PPP) [Relative time] 1.0 {INR} Normal 0.9-1.1 [facility] Comment on above: Performed By: #### L [id number] ####In House Cra: CHELSIE ISAACS ([id number])[facility] ([facility])[address] [place] [address] PT Coag (PPP) [Time] 11.0 s Normal 9.0-12.0 [facility] Comment on above: Performed By: #### L [id number] ####In House Cra: CHELSIE ISAACS ([id number])[facility])[address] [place] [address] Progress Noteon 01-09-2025 Progress Note Patient arrived to floor. Nursing eval reveals patient has intact cath site and stable vital signs. We will admit patient and assess CAD. Regular diet and activity for now. Full assessment imminent. Normal [facility] XR CHEST 1 VIEWon 01-09-2025 XR CHEST 1 VIEW Normal [facility] 12 Lead EKGon 01-08-2025 12 Lead EKG [facility] Cardiovascular Services [address] [place] [address] 12 Lead EKG 01/07/25 1645 MR#: [id number] Acct: [id number] Name: RITIKA SANTANA Rep #: [id number] : 1945 79 From: Richard White MD Attending Dr: Dr. Danial Salazar DO Status : DIS IN Ordering Dr: Richard White MD Date: 01/08/25 [facility] Sex[facility] F C Admitted: 01/07/25 Test [...] DATA IS UNCONFIRMED Confirmed by RICHARD WHITE ([id number]), design editor NANA REID ([id number]) on 01/12/2025 8:14:28 AM Referred By: Confirmed By: RICHARD WHITE 01/12/25 0814 Date Richard White MD CC: Dr. Danial Salazar DO; Dr. Richard White MD; ERIN GRANT Signed Normal [facility] Absolute lymphocyte countOrd ered By: Washington Damico on 01-08-2025 Lymphocytes Auto (Unsp spec) [#/Vol] 2.04 10*3/uL 0.83-4.51 [facility] Absolute neutrophil countOrd ered By: Washington Damico on 01-08-2025 Neutrophils (Bld) [#/Vol] 2.9 10*3/uL 2.0-7.7 [facility] Activated partial thrombopla stin time (aPTT) in platelet poor plasma by coagulation aOrdered By: Richard White on 01-08-2025 aPTT Coag (PPP) [Time] 48.2 s High 24.1-36.2 [facility] Anion gap in Serum or Plasma Ordered By: Washington Damico on 01-08-2025 Anion gap [Moles/Vol] 12 mmol/L - [facility] Automated lymphocyte count a s percentage of total leukocytesOrdered By: Washington Damico on 01-08-2025 Lymphocytes/100 WBC Auto (Unsp spec) 36.3 % [facility] BUN/creatinine ratioOrdered By: Washington Damico on 01-08-2025 Urea nitrogen/Creatinine [Mass ratio] 24.0 mg/mg High 06-01 [facility] Basic Metabolic Profile (BMP )on 01-08-2025 BUN/CRE 24.0 RATIO High - [facility] Comment on above: Performed By: #### L 300.4310 #### [facility] [address] [place], [address] Calcium [Mass/Vol] 9.2 mg/dL Normal 7.6-11.0 [facility] Comment on above: Performed By: #### L 300.4310 #### [facility] [address] [place], [address] Chloride [Moles/Vol] 106 mmol/L Normal 98-108 [facility] Comment on above: Performed By: #### L 300.4310 #### [facility] [address] [place], [address] CO2 [Moles/Vol] 22.4 mmol/L Normal 21.0-32.0 [facility] Comment on above: Performed By: #### L 300.4310 #### [facility] [address] [place], [address] Creatinine [Mass/Vol] 0.72 mg/dL Normal 0.70-1.20 [facility] Comment on above: Performed By: #### L 300.4310 #### [facility] [address] [place], [address] ECRCL 54.26 ml/min Normal 50-250 [facility] Comment on above: Performed By: #### L 300.4310 #### [facility] [address] [place], [address] GAP 12 Normal 5-15 [facility] Comment on above: Performed By: #### L 300.4310 #### [facility] [address] [place], [address] GFR/1.73 sq M.predicted among non-blacks MDRD (S/P/Bld) [Vol rate/Area] 85 mL/min/{1.73_m2} Normal >60 [facility] Comment on above: Result Comment: mL/m in/1.73m2 CKD-EPI Creatinine Equation (2020) Performed By: #### L 300.4310 #### [facility] [address] [place], [address] Glucose [Mass/Vol] 107 mg/dL High 70-99 [facility] Comment on above: Performed By: #### L 300.4310 #### [facility] [address] [place], [address] Potassium [Moles/Vol] 3.9 mmol/L Normal 3.3-5.1 [facility] Comment on above: Performed By: #### L 300.4310 #### [facility] [address] [place], [address] Sodium [Moles/Vol] 141 mmol/L Normal 133-145 [facility] Comment on above: Performed By: #### L 300.4310 #### [facility] [address] [place], [address] Urea nitrogen [Mass/Vol] 17 mg/dL Normal 4-19 [facility] Comment on above: Performed By: #### L 300.4310 #### [facility] [address] [place], [address] Basophil percentageOrdered B y: Washington Damico on 01-08-2025 Basophils/100 WBC (Bld) 0.9 % 0-1 [facility] CBC W/Diff, Automatedon 12-12 Absolute Lymph 2.04 X10 3/uL Normal 0.83-4.51 [facility] Comment on above: Performed By: #### L 300.4310 #### [facility] [address] [place], [address] Absolute Neut 2.9 X10 3/uL Normal 2.0-7.7 [facility] Comment on above: Performed By: #### L 300.4310 #### [facility] [address] [place], [address] Basophils/100 WBC (Bld) 0.9 % Normal 0-1 [facility] Comment on above: Performed By: #### L 300.4310 #### [facility] [address] [place], [address] Eosinophils/100 WBC (Bld) 2.5 % Normal 0-5 [facility] Comment on above: Performed By: #### L 300.4310 #### [facility] [address] [place], [address] Erythrocyte distribution width (RBC) [Ratio] 14.1 % Normal 11.6-14.6 [facility] Comment on above: Performed By: #### L 300.4310 #### [facility] [address] [place], [address] Hematocrit (Bld) [Volume fraction] 39.5 % Normal 37-47 [facility] Comment on above: Performed By: #### L 300.4310 #### [facility] [address] [place], [address] Hemoglobin (Bld) [Mass/Vol] 13.0 g/dL Normal 12.0-15.0 [facility] Comment on above: Performed By: #### L 300.4310 #### [facility] [address] [place], [address] IG% 0.200 Normal 0.0-0.9 [facility] Comment on above: Result Comment: IG% - Immature Granulocytes (promyelocytes, myelocytes and metamyelocytes) > 1% indicates that a LEFT SHIFT is Present. Performed By: #### L 300.4310 #### [facility] [address] [place], [address] Lymphocytes/100 WBC (Bld) 36.3 % Normal 19-41 [facility] Comment on above: Performed By: #### L 300.4310 #### [facility] [address] [place], [address] MCH (RBC) [Entitic mass] 29.3 pg Normal 27.0-32.0 [facility] Comment on above: Performed By: #### L 300.4310 #### [facility] [address] [place], [address] MCHC (RBC) [Mass/Vol] 32.9 g/dL Normal 32-36 [facility] Comment on above: Performed By: #### L 300.4310 #### [facility] [address] [place], [address] MCV (RBC) [Entitic vol] 89.0 fL Normal 81-99 [facility] Comment on above: Performed By: #### L 300.4310 #### [facility] [address] [place], [address] Monocytes/100 WBC (Bld) 9.1 % Normal 0-10 [facility] Comment on above: Performed By: #### L 300.4310 #### [facility] [address] [place], [address] Neutrophils/100 WBC (Bld) 51.0 % Normal 47-70 [facility] Comment on above: Performed By: #### L 300.4310 #### [facility] [address] [place], [address] Nucleated RBC (Bld) [#/Vol] 0 10*3/uL Normal 0-5 [facility] Comment on above: Performed By: #### L 300.4310 #### [facility] [address] [place], [address] Platelet mean volume (Bld) [Entitic vol] 9.5 fL Normal 6.2-12.0 [facility] Comment on above: Performed By: #### L 300.4310 #### [facility] [address] [place], [address] Platelets (Bld) [#/Vol] 236 10*3/uL Normal 150-450 [facility] Comment on above: Performed By: #### L 300.4310 #### [facility] [address] [place], [address] RBC (Bld) [#/Vol] 4.44 10*6/uL Normal 4.2-5.4 [facility] Comment on above: Performed By: #### L 300.4310 #### [facility] [address] [place], [address] RDW SD 45.5 fl High 35.1-43.9 [facility] Comment on above: Performed By: #### L 300.4310 #### [facility] [address] [place], [address] WBC (Bld) [#/Vol] 5.6 10*3/uL Normal 4.4-11.0 [facility] Comment on above: Performed By: #### L [id number] #### [facility] [address] [place], [address] CVS/PCIREPORTon 01-08-2025 CVS/PCIREPORT [facility] Cardiovascular Services [address] [place] [address] MR#: [id number] Acct: [id number] Name: RITIKA SANTANA Rep #: [id number] : 1945 79 From: Richard White MD Primary Care: ERIN GRANT Status: AD M IN Referring Dr: Sex: F C PCI Cardiac Cath Report PCI Report: Procedure performed; 1. Access from the right common femoral artery With placement of 6 [place] sheath. 2. Selective left coronary angiography 3. [...] of hypertension Clinical diagnosis of non-ST elevation OR. Consent; Risk and benefit of procedure explained detail patient like to proceed informed consent obtained. Diagnostic catheter used; 1. 6 [place] sheath in the right common femoral artery 2. 5 [place] JL 4 3. 5 [place] JR4. Procedure in detail; Patient brought to the Web Knitter in fasting state Access obtained from right common femoral artery as she had a very feeble and palpable right radial artery Under fluoroscopic guidance. Then we will proceed with a diagnostic catheter advanced ascending aorta cannulated the left main without difficulty Then we proceed with an evaluation of the left coronary system multiple views including AFGHAN, BURRELL cranial and caudal views. Following this the catheter exchanged for 5 [place] JR4 catheter and selective angiographic view of [...] the distal posterolateral branch. 4. RCA occluded proximally/PEDIATRIC PSYCHIATRIST This is well collateralized from the left coronary system Conclusion recommendation; 79-year-old patient who presented with symptoms of shortness of breath Non-ST elevation OR with symptoms of progressive shortness of breath on exertion Underwent cardiac catheterization which showed multivessel CAD. Will evaluate with echocardiogram As well patient will be transferred for evaluation with CABG/Buxton/summa Possible BLANCO to LAD, and vein graft to the distal RCA, PDA and OM2 Possible quadruple bypass surgery. Richard White MD,[facility] 01/08/251114 Date Richard White MD CC: Dr. Danial Salazar, DO; ERIN GRANT Date Dictated: 01/08/251114 Date Transcribed: 01/08/251114 Crop Nutrition Scientist: FB Signed Normal [facility] CVS/PCIREPORT [facility] Cardiovascular Services [address] [place] [address] MR#: [id number] Acct: [id number] Name: RITIKA SANTANA Rep #: [id number] : 1945 79 From: Richard White MD Primary Care: ERIN GRANT Status: AD M IN Referring Dr: Sex: F C PCI Cardiac Cath Report PCI Report: Procedure performed; 1. Access from the right common femoral artery With placement of 6 [place] sheath. 2. Selective left coronary angiography 3. [...] of hypertension Clinical diagnosis of non-ST elevation OR. Consent; Risk and benefit of procedure explained detail patient like to proceed informed consent obtained. Diagnostic catheter used; 1. 6 [place] sheath in the right common femoral artery 2. 5 [place] JL 4 3. 5 [place] JR4. Procedure in detail; Patient brought to the Web Knitter in fasting state Access obtained from right common femoral artery as she had a very feeble and palpable right radial artery Under fluoroscopic guidance. Then we will proceed with a diagnostic catheter advanced ascending aorta cannulated the left main without difficulty Then we proceed with an evaluation of the left coronary system multiple views including AFGHAN, BURRELL cranial and caudal views. Following this the catheter exchanged for 5 [place] JR4 catheter and selective angiographic view of [...] the distal posterolateral branch. 4. RCA occluded proximally/PEDIATRIC PSYCHIATRIST This is well collateralized from the left coronary system Conclusion recommendation; 79-year-old patient who presented with symptoms of shortness of breath Non-ST elevation OR with symptoms of progressive shortness of breath on exertion Underwent cardiac catheterization which showed multivessel CAD. Will evaluate with echocardiogram As well patient will be transferred for evaluation with CABG/Buxton/summa Possible BLANCO to LAD, and vein graft to the distal RCA, PDA and OM2 Possible quadruple bypass surgery. Richard White MD,[facility] 01/08/25 1122 Date Richard White MD CC: Dr. Danial Salazar, DO; ERIN GRANT Date Dictated: 01/08/251102 Date Transcribed: 01/08/251102 Crop Nutrition Scientist: ASYA Signed Normal [facility] Carbon dioxide, total [Moles /volume] in Central venous bloodOrdered By: Washington Damico on 01-08-2025 CO2 [Moles/Vol] 22.4 mmol/L 21.0-32.0 [facility] Cardiac catheterization repo rtOrdered By: Richard White on 01-08-2025 Cardiac catheterization study [facility] Cardiovascular Services [address] [place] [address] MR#: [id number] Acct: [id number] Name: RITIKA SANTANA Rep #: [id number] : 1945 79 From: Richard White MD Primary Care: ERIN GRANT Status: ADM IN Referring Dr: Sex: F C PCI Cardiac Cath Report PCI Report: Procedure performed; 1. Access from the right common femoral artery With placement of 6 [place] sheath. 2. Selective left coronary angiography 3. [...] of hypertension Clinical diagnosis of non-ST elevation OR. Consent; Risk and benefit of procedure explained detail patient like to proceed informed consent obtained. Diagnostic catheter used; 1. 6 [place] sheath in the right common femoral artery 2. 5 [place] JL 4 3. 5 [place] JR4. Procedure in detail; Patient brought to the Web Knitter in fasting state Access obtained from right common femoral artery as she had a very feeble and palpable right radial artery Under fluoroscopic guidance. Then we will proceed with a diagnostic catheter advanced ascending aorta cannulated the left main without difficulty Then we proceed with an evaluation of the left coronary system multiple views including AFGHAN, BURRELL cranial and caudal views. Following this the catheter exchanged for 5 [place] JR4 catheter and selective angiographic view of [...] the distal posterolateral branch. 4. RCA occluded proximally/PEDIATRIC PSYCHIATRIST This is well collateralized from the left coronary system Conclusion recommendation; 79-year-old patient who presented with symptoms of shortness of breath Non-ST elevation OR with symptoms of progressive shortness of breath on exertion Underwent cardiac catheterization which showed multivessel CAD. Will evaluate with echocardiogram As well patient will be transferred for evaluation with CABG/Buxton/summa Possible BLANCO to LAD, and vein graft to the distal RCA, PDA and OM2 Possible quadruple bypass surgery. Richard White MD,[facility] 01/08/25 1122 Date _ Richard White MD CC: Dr. Danial Salazar, DO; ERIN GRANT ~ Date Dictated: 01/08/251102 Date Transcribed: 01/08/251102 Crop Nutrition Scientist: ASYA Saucedo [facility] Work Phone: Cardiac catheterization study [facility] Cardiovascular Services [address] [place] [address] MR#: [id number] Acct: [id number] Name: RITIKA SANTANA Rep #: [id number] : 1945 79 From: Richard White MD Primary Care: ERIN GRANT Status: ADM IN Referring Dr: Sex: F C PCI Cardiac Cath Report PCI Report: Procedure performed; 1. Access from the right common femoral artery With placement of 6 [place] sheath. 2. Selective left coronary angiography 3. [...] of hypertension Clinical diagnosis of non-ST elevation OR. Consent; Risk and benefit of procedure explained detail patient like to proceed informed consent obtained. Diagnostic catheter used; 1. 6 [place] sheath in the right common femoral artery 2. 5 [place] JL 4 3. 5 [place] JR4. Procedure in detail; Patient brought to the Web Knitter in fasting state Access obtained from right common femoral artery as she had a very feeble and palpable right radial artery Under fluoroscopic guidance. Then we will proceed with a diagnostic catheter advanced ascending aorta cannulated the left main without difficulty Then we proceed with an evaluation of the left coronary system multiple views including AFGHAN, BURRELL cranial and caudal views. Following this the catheter exchanged for 5 [place] JR4 catheter and selective angiographic view of [...] the distal posterolateral branch. 4. RCA occluded proximally/PEDIATRIC PSYCHIATRIST This is well collateralized from the left coronary system Conclusion recommendation; 79-year-old patient who presented with symptoms of shortness of breath Non-ST elevation OR with symptoms of progressive shortness of breath on exertion Underwent cardiac catheterization which showed multivessel CAD. Will evaluate with echocardiogram As well patient will be transferred for evaluation with CABG/[place]/summa Possible BLANCO to LAD, and vein graft to the distal RCA, PDA and OM2 Possible quadruple bypass surgery. Richard White MD,[facility] 01/08/251114 Date _ Richard White MD CC: Dr. Danial Salazar, DO; ERIN GRANT ~ Date Dictated: 01/08/251114 Date Transcribed: 01/08/251114 Crop Nutrition Scientist: FB Signed [facility] Work Phone: Chloride assayOrdered By: Taqueria Damico on 01-08-2025 Chloride [Moles/Vol] 106 mmol/L 98-108 [facility] Echocardiogram study reportO rdered By: Richard White on 01-08-[address] [facility] Cardiovascular Services [address] [place] [address] Echo Complete W/ Contrast 01/08/25 0729 MR#: [id number] Acct: [id number] Name: RITIKA SANTANA Rep #:[id number] : 1945 79 From: Richard White MD Attending Dr: Dr. Danial Salazar, DO Status: ADM IN Ordering Dr: Washington Damico DO Date: [facility] Sex: F C Admitted: 01/07/25 Reason [...] Physician: Becky Mcknight Performed By: Katie Zaragoza, CINYD, RVT 01/08/25 1250 Date _ Richard White MD CC: Dr. Danial Salazar DO; Dr. Washington Damico DO; ERIN GRANT ~ Date Dictated: 01/08/25728 Date Transcribed: 01/08/25 125 Crop Nutrition Scientist: Signed [facility] Work Phone: Eosinophil percentageOrdered By: Washington Damico on 01-08-2025 Eosinophils/100 WBC (Bld) 2.5 % 0-5 [facility] Erythrocyte distribution wid th ratioOrdered By: Washington Damico on 01-08-2025 Erythrocyte distribution width (RBC) [Ratio] 14.1 % 11.6-14.6 [facility] Erythrocyte distribution wid th standard deviationOrdered By: Washington Damico on 01-08-2025 Erythrocyte distribution width (RBC) [Ratio] 45.5 fl High 35.1-43.9 [facility] Glomerular filtration rate ( GFR) estimation/1.73 sq m using serum, plasma, or whole bOrdered By: Washington Damico on 01-08-2025 GFR/1.73 sq M.predicted among non-blacks MDRD (S/P/Bld) [Vol rate/Area] 85 mL/min/{1.73_m2} >60 [facility] Comment on above: mL/min/1.73m2 CKD-EP I Creatinine Equation (2020) Hematocrit Auto (Bld) [Volum e fraction]Ordered By: Washington Damico on 01-08-2025 Hematocrit (Bld) [Volume fraction] 39.5 % 37-47 [facility] Hemoglobin measurementOrdere d By: Washington Damico on 01-08-2025 Hemoglobin (Bld) [Mass/Vol] 13.0 g/dL 12.0-15.0 [facility] Immature granulocytes/100 WB C Auto (Bld)Ordered By: Washington Damico on 01-08-2025 Immature granulocytes/100 WBC (Bld) 0.200 % 0.0-0.9 [facility] Comment on above: IG% - Immature Granu locytes (promyelocytes, myelocytes and metamyelocytes) > 1% indicates that a LEFT SHIFT is Present. MCV (mean corpuscular volume ) determinationOrdered By: Washington Damico on 01-08-2025 MCV (RBC) [Entitic vol] 89.0 fL 81-99 [facility] Magnesiumon 01-08-2025 Magnesium [Mass/Vol] 2.0 mg/dL Normal 1.5-2.2 [facility] Comment on above: Performed By: #### L 605.0260 #### [facility] Laboratory [facility] [place], [address] Magnesium measurement (mass/ volume)Ordered By: Andre Almaguer on 01-08-2025 Magnesium (Unsp spec) [Mass/Vol] 2.0 mg/dL 1.5-2.2 [facility] Mean corpuscular hemoglobin (MCH) determinationOrdered By: Washington Damico on 01-08-2025 MCH (RBC) [Entitic mass] 29.3 pg 27.0-32.0 [facility] Mean corpuscular hemoglobin concentration (MCHC) determinationOrdered By: Washington Damico on 01-08-2025 MCHC (RBC) [Mass/Vol] 32.9 g/dL 32-36 [facility] Mean platelet volume determi nationOrdered By: Washington Damico on 01-08-2025 Platelet mean volume (Bld) [Entitic vol] 9.5 fL 6.2-12.0 [facility] Monocyte percentageOrdered B y: Washington Damico on 01-08-2025 Monocytes/100 WBC (Bld) 9.1 % 0-10 [facility] Neutrophil percentageOrdered By: Washington Damico on 01-08-2025 Neutrophils/100 WBC (Bld) 51.0 % 47-70 [facility] Nucleated red blood cell per centageOrdered By: Washington Damico on 01-08-2025 Nucleated RBC/100 WBC (Bld) [Ratio] 0 % 0-5 [facility] Partial Thromboplast Timeon 01-08-2025 aPTT Coag (Bld) [Time] 48.2 s High 24.1-36.2 [facility] Comment on above: Performed By: #### L 300.4310 #### [facility] Laboratory [address] [facility] [place], [address] aPTT Coag (Bld) [Time] 28.4 s Normal 24.1-36.2 [facility] Comment on above: Performed By: #### L 300.4310 #### [facility] Laboratory [address] [place], [address] aPTT Coag (Bld) [Time] 72.1 s High 24.1-36.2 [facility] Comment on above: Performed By: #### L 300.4310 #### [facility] Laboratory [address] [place], [address] aPTT Coag (Bld) [Time] 60.8 s High 24.1-36.2 [facility] Comment on above: Performed By: #### L 499.0043 #### [facility] Laboratory [address] [place], [address] Platelet countOrdered By: Taqueria Damico on 01-08-2025 Platelets (Bld) [#/Vol] 236 10*3/uL 150-450 [facility] Potassium measurement (mass/ volume)Ordered By: Washington Damico on 01-08-2025 Potassium (Unsp spec) [Mass/Vol] 3.9 mmol/L 3.3-5.1 [facility] RBC Auto (Bld) [#/Vol]Ordere d By: Washington Damico on 01-08-2025 RBC (Bld) [#/Vol] 4.44 10*6/uL 4.2-5.4 [facility] Serum creatinine measurement (mass/volume)Ordered By: Washington Damico on 01-08-2025 Creatinine [Mass/Vol] 0.72 mg/dL 0.70-1.20 [facility] Serum glucose measurement (m ass/volume)Ordered By: Washington Damico on 01-08-2025 Glucose [Mass/Vol] 107 mg/dL High 70-99 [facility] Serum or plasma calcium valerio urement (mass/volume)Ordered By: Washington Damico on 01-08-2025 Calcium [Mass/Vol] 9.2 mg/dL 7.6-11.0 [facility] Serum or plasma urea nitroge n measurement (mass/volume)Ordered By: Washington Damico on 01-08-2025 Urea nitrogen [Mass/Vol] 17 mg/dL 4-19 [facility] Sodium levelOrdered By: Washington Damico on 01-08-2025 Sodium [Moles/Vol] 141 mmol/L 133-145 [facility] White blood cell (WBC) count Ordered By: Washington Damico on 01-08-2025 WBC (Bld) [#/Vol] 5.6 10*3/uL 4.4-11.0 [facility] 12 Lead EKGon 01-07-2025 12 Lead EKG [facility] Cardiovascular Services [address] [place] [address] 12 Lead EKG 01/08/25 0503 MR#: [id number] Acct: [id number] Name: RITIKA SANTANA Rep #: [id number] : 1945 79 From: Richard White MD [...] IS UNCONFIRMED Confirmed by RICHARD WHITE ([id number]), design editor ANNA REID ([id number]) on 01/12/2025 8:14:06 AM Referred By: RED Confirmed By: RICHARD WHITE 01/12/25 0814 Date Richard White MD CC: Dr. Danial Salazar, ; Dr. Washington Damico, ; ERIN GRANT Signed Normal [facility] 12 Lead EKG [facility] Cardiovascular Services [address] [place] [address] 12 Lead EKG 01/07/25 1035 MR#: [id number] Acct: [id number] Name: RITIKA SANTANA Rep #: [id number] : 1945 79 From: Richard White MD [...] Abnormal ECG Confirmed by RICHARD WHITE ([id number]), design editor ANNA REID ([id number]) on 01/12/2025 8:05:28 AM Referred By: Confirmed By: RICHARD WHITE 01/12/25804 Date Ricahrd White MD CC: Dr. Danial Salazar DO; Dr. Houston Morales DO; ERIN GRANT Signed Normal [facility] 12 Lead EKG [facility] Cardiovascular Services [address] [place] [address] 12 Lead EKG 01/07/25 1247 MR#: [id number] Acct: [id number] Name: RITIKA SANTANA Rep #: [id number] : 1945 79 From: Richard White MD Attending Dr: Dr. Danial Salazar DO Status : DIS IN Ordering Dr: Houston Morales DO Date: 5 [facility] Sex: F C Admitted: 01/07/25 Test [...] Abnormal ECG Confirmed by RICHARD WHITE ([id number]), design editor ANNA REID ([id number]) on 01/12/2025 8:05:14 AM Referred By: Confirmed By: RICHARD WHITE 01/12/25804 Date Richard White MD CC: Dr. Danial Salazar DO; Dr. Houston Morales, DO; ERIN GRANT Signed Normal [facility] Absolute lymphocyte countOrd ered By: Houston Morales on 01-07-2025 Lymphocytes Auto (Unsp spec) [#/Vol] 1.56 10*3/uL 0.83-4.51 [facility] Absolute neutrophil countOrd ered By: Houston Morales on 01-07-2025 Neutrophils (Bld) [#/Vol] 3.5 10*3/uL 2.0-7.7 [facility] Activated partial thrombopla stin time (aPTT) in platelet poor plasma by coagulation aOrdered By: Houston Morales on 01-07-2025 aPTT Coag (PPP) [Time] 62.2 s High 24.1-36.2 [facility] aPTT Coag (PPP) [Time] 32.6 s 24.1-36.2 [facility] Anion gap in Serum or Plasma Ordered By: Houston Morales on 01-07-2025 Anion gap [Moles/Vol] 14 mmol/L 5-15 [facility] Automated blood erythrocyte countOrdered By: Houston Morales on 01-07-2025 RBC (Bld) [#/Vol] 4.66 10*6/uL Normal 4.2-5.4 [facility] Comment on above: Performed By: #### L 100.0100, L503.7505, L500.2500, L501.4021 #### [facility] Laboratory [address] [place], [address] Automated blood hematocrit ( percentage)Ordered By: Houston Morales on 01-07-2025 Hematocrit (Bld) [Volume fraction] 41.6 % Normal 37-47 [facility] Comment on above: Performed By: #### L 100.0100, L503.7505, L500.2500, L501.4021 #### [facility] Laboratory [address] [place], [address] Automated lymphocyte count a s percentage of total leukocytesOrdered By: Houston Morales on 01-07-2025 Lymphocytes/100 WBC Auto (Unsp spec) 26.7 % 19-41 [facility] BUN/creatinine ratioOrdered By: Houston Morales on 01-07-2025 Urea nitrogen/Creatinine [Mass ratio] 22.7 mg/mg High 10- [facility] Basic Metabolic Profile (BMP )on 01-07-2025 BUN/CRE 22.7 RATIO High 10-20 [facility] Comment on above: Performed By: #### L 100.0100, L503.7505, L500.2500, L501.4021 #### [facility] Laboratory [address] [place], [address] ECRCL 49.33 ml/min Low 50-250 [facility] Comment on above: Performed By: #### L 100.0100, L503.7505, L500.2500, L501.4021 #### [facility] Laboratory [address] [place], [address] GAP 14 Normal 5-15 [facility] Comment on above: Performed By: #### L 100.0100, L503.7505, L500.2500, L501.4021 #### [facility] Laboratory [address] [place], [address] Potassium [Moles/Vol] 4.3 mmol/L Normal 3.3-5.1 [facility] Comment on above: Performed By: #### L 100.0100, L503.7505, L500.2500, L501.4021 #### [facility] Laboratory [address] [place], [address] Basophil percentageOrdered B y: Houston Morales on 01-07-2025 Basophils/100 WBC (Bld) 0.9 % Normal 0-1 [facility] Comment on above: Performed By: #### L 100.0100, L503.7505, L500.2500, L501.4021 #### [facility] Laboratory [address] [place], [address] CBC W/Diff, Automatedon 05-2 Absolute Lymph 1.56 X10 3/uL Normal 0.83-4.51 [facility] Comment on above: Performed By: #### L 100.0100, L503.7505, L500.2500, L501.4021 #### [facility] Laboratory [address] [place], [address] Absolute Neut 3.5 X10 3/uL Normal 2.0-7.7 [facility] Comment on above: Performed By: #### L 100.0100, L503.7505, L500.2500, L501.4021 #### [facility] Laboratory [address] [place], [address] IG% 0.200 Normal 0.0-0.9 [facility] Comment on above: Result Comment: IG% - Immature Granulocytes (promyelocytes, myelocytes and metamyelocytes) > 1% indicates that a LEFT SHIFT is Present. Performed By: #### L 100.0100, L503.7505, L500.2500, L501.4021 #### [facility] Laboratory [address] [place], [address] Lymphocytes/100 WBC (Bld) 26.7 % Normal 19-41 [facility] Comment on above: Performed By: #### L 100.0100, L503.7505, L500.2500, L501.4021 #### [facility] Laboratory [address] [place], [address] Nucleated RBC (Bld) [#/Vol] 0 10*3/uL Normal 0-5 [facility] Comment on above: Performed By: #### L 100.0100, L503.7505, L500.2500, L501.4021 #### [facility] Laboratory [address] [place], [address] RDW SD 46.5 fl High 35.1-43.9 [facility] Comment on above: Performed By: #### L 100.0100, L503.7505, L500.2500, L501.4021 #### [facility] Laboratory [address] [place], [address] Carbon dioxide, total [Moles /volume] in Central venous bloodOrdered By: Houston Morales on 01-07-2025 CO2 [Moles/Vol] 20.3 mmol/L Low 21.0-32.0 [facility] Comment on above: Performed By: #### L 100.0100, L503.7505, L500.2500, L501.4021 #### [facility] Laboratory [address] [place], [address] Cardiology Visit Reporton Cardiology Visit Report [facility] [address] [place], [place] [address] OFFICE VISIT Date of Service: 01/07/25 MR#: [id number] Acct: [id number] Name: RITIKA SANTANA Rep #: [id number] : 1945 Provider: SHAWNEE Bright Age/Sex: 79/F Location: [facility] Status: Signed HPI HPI History of [...] Orders: Orders 12 Lead EKG performed by [facility] 01/07/25 I48.0 - Paroxysmal atrial fibrillation Coding Level of Care Code No Charge Coding Level of Care Code No Charge Clinical Quality Measures Falls Risk Screening/Assistive Devices Have you fallen in the past year?: No 01/09/25 1700 Date Noe Demiter PA Cosigner Signature: Date (if applicable) CC: Normal [facility] Chest PA and Lateralon 01-07 Chest PA and Lateral [facility] Imaging Services [address] [place] [address] Chest PA and Lateral MR#: [id number] Acct: [id number] Name: RITIKA SANTANA Rep #: [id number] : 1945 F 79 From: Donis rosas MD PCP: ERIN GRANT Status: REG ER Study: Chest PA and Lateral Date of Exam: 01/07/25 Exam# [id number] Ordering Dr: Houston Morales DO PROCEDURE: CHEST [...] are clear. Moderate-sized hiatal hernia. Reading Location: [place] [address] CC: Dr. Houston Morales DO; ERIN GRANT Crop Nutrition Scientist: Signed Normal [facility] Chloride assayOrdered By: Jamel Morales on 01-07-2025 Chloride [Moles/Vol] 104 mmol/L Normal 98-108 [facility] Comment on above: Performed By: #### L 100.0100, L503.7505, L500.2500, L501.4021 #### [facility] Laboratory [address] [place], [address] Consultation - Cardiologyon 01-07-2025 Consultation - Cardiology [facility] Medical Records Department [address] [place] [address] Consultation - Cardiology 01/07/25 1642 MR#: [id number] Acct: [id number] Name: RITIKA SANTANA Rep #: [id number] : 1945 79 From: Richard White MD PCP: ERIN GRANT Status:ADM IN Location: [place] [address] HPI Consult Data Date of Consult: 01/07/25 HPI Narrative Reason for Consultation: Non-STEMI HPI Narrative: RITIKA SANTANA, is a 79 F who presents [facility] Medical History Macular degeneration GERD (gastroesophageal reflux [...] requested for elevated high sensitive troponins/non-ST elevation OR. She had symptoms of palpitation with shortness of breath and generalized chest pain mainly described as diffuse chest discomfort with some radiation to the back and to both shoulders more prominent on the left side. Cardiac consultation requested as she has elevated high sensitive troponins with a clinical diagnosis of non-ST elevation OR. Patient has history of paroxysmal A-fib and [...] pain at time of evaluation. On the front desk monitor showed underlying sinus rhythm. Cardiac exam essentially normal Chest clear to auscultation bilateral Cardiac care plan recommendations; 1. This patient has non-ST elevation OR with significant elevated high sensitive troponin more [...] be set up for tomorrow. Richard White MD,[facility] Risk Stratification Risk Stratification Applicable: Yes [...] Vital Signs (more content not included)... Normal [facility] D-Dimer Quantitative (DVT/PE )on 01-07-2025 D-DIMER QUANT < 0.27 Low 0.27-0.49 [facility] Comment on above: Result Comment: NORM AL D-Dimer level (<0.50) indicates no DVT or PE. Performed By: #### L 547.1739 #### [facility] Laboratory [address] [place], [address] Echo Complete W/ Contraston 01-07-2025 Echo Complete W/ Contrast [facility] Cardiovascular Services [address] [place] [address] Echo Complete W/ Contrast 01/08/25 5717 MR#: [id number] Acct: [id number] Name: RITIKA SANTANA Rep #: [id number] : 1945 79 From: Richard White MD Attending Dr: Dr. Danial Salazar DO Status : ADM IN Ordering Dr: Washington Damico DO Date: 01/07/25 [facility] Sex: F C Admitted: 01/07/25 Reason [...] LV V1 mean P.1 mmHg MR mean afrzaneh: 413.4 cm/sec LV V1 mean: 49.4 cm/sec [...] Date Dictated: 01/08/25728 Date Transcribed: 01/08/25 125 Crop Nutrition Scientist: Signed Normal [facility] Emergency Department Summary on 01-07-2025 Emergency Department Summary [facility] Medical Records Department [address] [place] [address] Emergency Department Summary 01/07/25 MR#: [id number] Acct: [id number] Name: RITIKA SANTANA Rep #: [id number] : 1945 79 From: Houston Morales DO PCP: ERIN GRANT Status:ADM IN Location: [place] [id number] HPI History of Present Illness Chief Complaint: [...] abdominal pain, nausea, vomiting. 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 Normal [facility] Eosinophil percentageOrdered By: Houston Morales on 01-07-2025 Eosinophils/100 WBC (Bld) 1.5 % Normal 0-5 [facility] Comment on above: Performed By: #### L 100.0100, L503.7505, L500.2500, L501.4021 #### [facility] Laboratory [address] [place], [place], [address] Erythrocyte distribution wid th ratioOrdered By: Houston Morales on 01-07-2025 Erythrocyte distribution width (RBC) [Ratio] 14.4 % Normal 11.6-14.6 [facility] Comment on above: Performed By: #### L 100.0100, L503.7505, L500.2500, L501.4021 #### [facility] Laboratory [address] [place], [place], [address] Erythrocyte distribution wid th standard deviationOrdered By: Houston Mustafa on 01-07-2025 Erythrocyte distribution width (RBC) [Ratio] 46.5 fl High 35.1-43.9 [facility] Glomerular filtration rate ( GFR) estimation/1.73 sq m using serum, plasma, or whole bOrdered By: Houston Morales on 01-07-2025 GFR/1.73 sq M.predicted among non-blacks MDRD (S/P/Bld) [Vol rate/Area] 67 mL/min/{1.73_m2} Normal >60 [facility] Comment on above: mL/min/1.73m2 CKD-EP I Creatinine Equation (2020) Result Comment: mL/m in/1.73m2 CKD-EPI Creatinine Equation (2020) Performed By: #### L 100.0100, L503.7505, L500.2500, L501.4021 #### [facility] Laboratory [address] [place], [address] H AND P Exam - Hospitaliston 01-07-2025 H&P Exam - Hospitalist [facility] Medical Records Department [address] [place] [address] H P Exam - Hospitalist 01/07/25 1316 MR#: [id number] Acct: [id number] Name: RITIKA SANTANA Rep #: [id number] : 1945 79 From: Washington Damico DO [...] have gotten better. She went to the naphtha washing system operator office and explained her symptoms and they [...] has never had a myocardial infarction before. [facility] Medical History Macular degeneration GERD (gastroesophageal reflux [...] to inspection (more content not included)... Normal [facility] Hemoglobin measurementOrdere d By: Houston Morales on 01-07-2025 Hemoglobin (Bld) [Mass/Vol] 13.6 g/dL Normal 12.0-15.0 [facility] Comment on above: Performed By: #### L 100.0100, L503.7505, L500.2500, L501.4021 #### [facility] Laboratory [address] [facility]. [place], [place], [address] Immature granulocytes/100 WB C Auto (Bld)Ordered By: Houston Morales on 01-07-2025 Immature granulocytes/100 WBC (Bld) 0.200 % 0.0-0.9 [facility] Comment on above: IG% - Immature Granu locytes (promyelocytes, myelocytes and metamyelocytes) > 1% indicates that a LEFT SHIFT is Present. International normalized rat io (INR) calculationOrdered By: Houston Morales on 01-07-2025 INR Coag (Bld) [Relative time] 1.1 {INR} [facility] L499.0042on 01-07-2025 Trop T High Sen 617 ng/L Invalid Interpretation Code <=14 [facility] Comment on above: Result Comment: Crit ical Result(s) Called to Lorraine FALL (ER): by Deirdre:??Results read back by same. Performed By: #### L 300.4310 #### [facility] Laboratory [address] [place], [address] L499.0043on 01-07-2025 Trop T High Sen 573 ng/L Invalid Interpretation Code <=14 [facility] Comment on above: Result Comment: Crit ical Result(s) Called to Bertin FALL ([facility]): Stoner:??Results read back by same. Performed By: #### L 499.0043 #### [facility] Laboratory [address] [place], [address] L501.4021on 01-07-2025 Trop T High Sen 656 ng/L Invalid Interpretation Code <=14 [facility] Comment on above: Result Comment: Crit ical Result(s) Called at: 01/07/2025-11:54 by: Lacho Moscoso to Alejandra Peace.??Results read back by same. Performed By: #### L 100.0100, L503.7505, L500.2500, L501.4021 #### [facility] [address] [place], [address] L503.7505on 01-07-2025 Natriuretic peptide B (Bld) [Mass/Vol] 1762 pg/mL Normal <=1800 [facility] Comment on above: Result Comment: Hear t Failure Unlikely: < 300 pg/mL Heart Failure Likely < 50 Years: > 450 pg/mL 50-75 Years: > 900 pg/mL >75 Years: > 1800 pg/mL Performed By: #### L 100.0100, L503.7505, L500.2500, L501.4021 ####[facility] [address] [place], [address] MCV (mean corpuscular volume ) determinationOrdered By: Houston Morales on 01-07-2025 MCV (RBC) [Entitic vol] 89.3 fL Normal 81-99 [facility] Comment on above: Performed By: #### L 100.0100, L503.7505, L500.2500, L501.4021 #### [facility] [address] [place], [address] Mean corpuscular hemoglobin (MCH) determinationOrdered By: Houston Morales on 01-07-2025 MCH (RBC) [Entitic mass] 29.2 pg Normal 27.0-32.0 [facility] Comment on above: Performed By: #### L 100.0100, L503.7505, L500.2500, L501.4021 #### [facility] [address] [place], [address] Mean corpuscular hemoglobin concentration (MCHC) determinationOrdered By: Houston Morales on 01-07-2025 MCHC (RBC) [Mass/Vol] 32.7 g/dL Normal 32-36 [facility] Comment on above: Performed By: #### L 100.0100, L503.7505, L500.2500, L501.4021 #### [facility] [address] [place], [address] Mean platelet volume determi nationOrdered By: Houston Morales on 01-07-2025 Platelet mean volume (Bld) [Entitic vol] 9.8 fL Normal 6.2-12.0 [facility] Comment on above: Performed By: #### L 100.0100, L503.7505, L500.2500, L501.4021 #### [facility] [address] [place], [address] Monocyte percentageOrdered B y: Houston Morales on 01-07-2025 Monocytes/100 WBC (Bld) 10.3 % High 0-10 [facility] Comment on above: Performed By: #### L 100.0100, L503.7505, L500.2500, L501.4021 #### [facility] [address] [place], [address] Natriuretic peptide.B prohor ami N-Terminal [Mass/volume] in Serum or PlasmaOrdered By: Houston Morales on 01-07-2025 Natriuretic peptide.B prohormone N-Terminal [Mass/Vol] 1762 pg/mL <1800 [facility] Comment on above: Heart Failure Unlike ly: < 300 pg/mLHeart Failure Likely< 50 Years: > 450 pg/mL50-75 Years: > 900 pg/mL>75 Years: > 1800 pg/mL Neutrophil percentageOrdered By: Houston Morales on 01-07-2025 Neutrophils/100 WBC (Bld) 60.4 % Normal 47-70 [facility] Comment on above: Performed By: #### L 100.0100, L503.7505, L500.2500, L501.4021 #### [facility] [address] [place], [address] Nucleated red blood cell per centageOrdered By: Houston Morales on 01-07-2025 Nucleated RBC/100 WBC (Bld) [Ratio] 0 % 0-5 [facility] Partial Thromboplast Timeon 01-07-2025 aPTT Coag (Bld) [Time] 62.2 s High 24.1-36.2 [facility] Comment on above: Performed By: #### L 499.0043 #### [facility] [address] [place], [address] aPTT Coag (Bld) [Time] 32.6 s Normal 24.1-36.2 [facility] Comment on above: Performed By: #### L 300.4310 #### [facility] [address] [place] [place], [address] Platelet countOrdered By: Jamel Morales on 01-07-2025 Platelets (Bld) [#/Vol] 247 10*3/uL Normal 150-450 [facility] Comment on above: Performed By: #### L 100.0100, L503.7505, L500.2500, L501.4021 #### [facility] [address] [place], [address] Potassium measurement (mass/ volume)Ordered By: Houston Morales on 01-07-2025 Potassium (Unsp spec) [Mass/Vol] 4.3 mmol/L 3.3-5.1 [facility] Prothrombin Time w/INRon INR Coag (PPP) [Relative time] 1.1 {INR} Normal [facility] Comment on above: Performed By: #### L 300.4310 #### [facility] [address] [place], [address] Prothrombin timeOrdered By: Houston Morales on 01-07-2025 PT Coag (PPP) [Time] 14.2 s Normal 11.7-14.9 [facility] Comment on above: Performed By: #### L 300.4310 #### [facility] [address] [place] [place], [address] Serum creatinine measurement (mass/volume)Ordered By: Houston Morales on 01-07-2025 Creatinine [Mass/Vol] 0.88 mg/dL Normal 0.70-1.20 [facility] Comment on above: Performed By: #### L 100.0100, L503.7505, L500.2500, L501.4021 #### [facility] [address] [place], [address] Serum glucose measurement (m ass/volume)Ordered By: Houston Morales on 01-07-2025 Glucose [Mass/Vol] 101 mg/dL High 70-99 [facility] Comment on above: Performed By: #### L 100.0100, L503.7505, L500.2500, L501.4021 #### [facility] [address] [place], [address] Serum or plasma calcium valerio urement (mass/volume)Ordered By: Houston Mustafa on 01-07-2025 Calcium [Mass/Vol] 9.5 mg/dL Normal 7.6-11.0 [facility] Comment on above: Performed By: #### L 100.0100, L503.7505, L500.2500, L501.4021 #### [facility] [address] [place], [address] Serum or plasma urea nitroge n measurement (mass/volume)Ordered By: Houston Morales on 01-07-2025 Urea nitrogen [Mass/Vol] 20 mg/dL High 4-19 [facility] Comment on above: Performed By: #### L 100.0100, L503.7505, L500.2500, L501.4021 #### [facility] [address] [place], [address] Sodium levelOrdered By: Diogenes Morales on 01-07-2025 Sodium [Moles/Vol] 138 mmol/L Normal 133-145 [facility] Comment on above: Performed By: #### L 100.0100, L503.7505, L500.2500, L501.4021 #### [facility] [address] [place], [address] Troponin T.cardiac [Mass/vol ume] in Serum or Plasma by High sensitivity methodOrdered By: Washington Damico on 01-07-2025 Troponin T.cardiac High sensitivity method [Mass/Vol] 573 ng/L High <14 [facility] Comment on above: Critical Result(s) C alled to Bertin F[facility] ([facility] Carla: Results read back by same. Troponin T.cardiac [Mass/vol ume] in Serum or Plasma by High sensitivity methodOrdered By: Houston Morales on 01-07-2025 Troponin T.cardiac High sensitivity method [Mass/Vol] 617 ng/L High <14 [facility] Comment on above: Critical Result(s) C alled to Lorraine FALL (ER): by Deirdre: Results read back by same. Troponin T.cardiac High sensitivity method [Mass/Vol] 656 ng/L High <14 [facility] Comment on above: Critical Result(s) C alled at: 01/07/2025-11:54 by: Lacho Moscoso to Alejandra Peace. Results read back by same. White blood cell (WBC) count Ordered By: Houston Morales on 01-07-2025 WBC (Bld) [#/Vol] 5.8 10*3/uL Normal 4.4-11.0 [facility] Comment on above: Performed By: #### L 100.0100, L503.7505, L500.2500, L501.4021 #### [facility] [address] [place], [address] Cardiology Visit Reporton Cardiology Visit Report [facility] [address] [place], [place] [address] OFFICE VISIT Date of Service: 10/23/24 MR#: [id number] Acct: [id number] Name: RITIKA SANTANA Rep #: [id number] : 1945 Provider: SHAWNEE Fatima Age/Sex: 79/F Location: [facility] Status: Signed HPI HPI History of [...] Intake Visit Reasons: 1 Y FU/PREV PFM Diploma Dental Assistant Required: No Is patient in pain?: No [...] you fallen in the past year?: No [facility] Medical History (Updated 10/23/24 @ 13:42 by [...] bilaterally Neck (more content not included)... Normal [facility] .GFRon 10-02-2023 GFR 79 ml/min/1.73sqm Normal [facility] ([place]) Comment on above: Result Comment: [...] #### V IDH, LIPID, GFR, CMP #### [address] [address] GFR Non- 65 ml/min/1.73sqm Normal [facility] ([place]) Comment on above: Result Comment: GFR Population [...] #### V IDH, LIPID, GFR, CMP #### [address] [address] CMPon 10-02-2023 Albumin Level 3.6 G/dL Normal 3.4-4.8 [facility] ([place]) Comment on above: Performed By: #### V IDH, LIPID, GFR, CMP #### [address] [address] Albumin/Globulin [Mass ratio] 1.0 {ratio} Low 1.1-2.5 [facility] ([place]) Comment on above: Performed By: #### V IDH, LIPID, GFR, CMP #### [address] [place], [place] [address] ALP [Catalytic activity/Vol] 100 U/L Normal 40-135 [facility] ([place]) Comment on above: Performed By: #### V IDH, LIPID, GFR, CMP #### [address] [address] ALT [Catalytic activity/Vol] 20 U/L Normal 14-59 [facility] ([place]) Comment on above: Performed By: #### V IDH, LIPID, GFR, CMP #### [address] [address] AST [Catalytic activity/Vol] 12 U/L Normal 10-40 [facility] ([place] Comment on above: Performed By: #### V IDH, LIPID, GFR, CMP #### [address] [address] Bili Total 0.5 mg/dL Normal 0.2-1.0 [facility] ([place]) Comment on above: Result Comment: Use of this assay is not recommended for patients undergoing treatment with eltrombopag due to the potential for falsely elevated results. Performed By: #### V IDH, LIPID, GFR, CMP #### [address] [address] BUN/Creatinine Ratio 20 ratio Normal 7-27 [facility] ([place]) Comment on above: Performed By: #### V IDH, LIPID, GFR, CMP #### [address] [address] Calcium [Mass/Vol] 9.5 mg/dL Normal 8.4-10.2 [facility] ([place]) Comment on above: Performed By: #### V IDH, LIPID, GFR, CMP #### [address] [address] Chloride [Moles/Vol] 104 mmol/L Normal 98-107 [facility] ([place]) Comment on above: Performed By: #### V IDH, LIPID, GFR, CMP #### [address] [address] CO2 [Moles/Vol] 27 mmol/L Normal 23-31 [facility] ([place]) Comment on above: Performed By: #### V IDH, LIPID, GFR, CMP #### [address] [address] Creatinine [Mass/Vol] 0.85 mg/dL Normal 0.55-1.02 [facility] ([place]) Comment on above: Performed By: #### V IDH, LIPID, GFR, CMP #### [address] [address] Electrolyte Balance 8.0 mEq/L Normal 4.0-15.0 [facility] ([place]) Comment on above: Performed By: #### V IDH, LIPID, GFR, CMP #### [address] [address] Globulin 3.5 G/dL Normal [facility] ([place]) Comment on above: Performed By: #### V IDH, LIPID, GFR, CMP #### [address] [address] Glucose [Mass/Vol] 115 mg/dL High 83-110 [facility] ([place]) Comment on above: Performed By: #### V IDH, LIPID, GFR, CMP #### [address] [address] Potassium [Moles/Vol] 4.5 mmol/L Normal 3.5-5.1 [facility] ([place]) Comment on above: Performed By: #### V IDH, LIPID, GFR, CMP #### [address] [address] Sodium [Moles/Vol] 139 mmol/L Normal 136-145 [facility] ([place]) Comment on above: Performed By: #### V IDH, LIPID, GFR, CMP #### [address] [address] Total Protein 7.1 G/dL Normal 6.4-8.2 [facility] ([place]) Comment on above: Performed By: #### V IDH, LIPID, GFR, CMP #### [address] [address] Urea nitrogen [Mass/Vol] 17 mg/dL Normal 7-18 [facility] ([place]) Comment on above: Performed By: #### V IDH, LIPID, GFR, CMP #### [address] [address] LABORATORYOrdered By: SYSTEM SYSTEM on 10-02-2023 25-hydroxyvitamin [...] 10-02-2023 Cholesterol [Mass/Vol] 249 mg/dL High 0-200 [facility] ([place]) Comment on above: Result Comment: Chol esterol Reference Interval: Less than 200 Desirable 200-239 Borderline high risk 240 and above High risk Performed By: #### V IDH, LIPID, GFR, CMP #### [address] [address] Cholesterol in HDL [Mass/Vol] 49 mg/dL Normal 40-60 [facility] ([place]) Comment on above: Performed By: #### V IDH, LIPID, GFR, CMP #### [address] [address] Cholesterol in LDL [Mass/Vol] 168 mg/dL High 0-130 [facility] ([place]) Comment on above: Performed By: #### V IDH, LIPID, GFR, CMP #### [address] [address] Triglyceride [Mass/Vol] 162 mg/dL High 0-150 [facility] ([place]) Comment on above: Result Comment: Trig lyceride Reference Interval: Less than 150 Normal 150-199 Borderline high risk 200-499 High risk 500 or higher Very high risk Performed By: #### V IDH, LIPID, GFR, CMP #### [address] [address] VIDHon 10-02-2023 Vit. D 25-Hydroxy 53.8 ng/mL Normal [facility] ([place]) Comment on above: Result Comment: Inte rpretive Values Based on Total 25(OH) Vitamin D: Deficient <20 ng/mL Insufficient 20 - <30 ng/mL Sufficient 30-100 ng/mL Performed By: #### V IDH, LIPID, GFR, CMP #### [address] [place], [place] [address] BD BONE DENSITY DEXA AXIAL S Michael [...] 09/26/2023 1:03:58 PM Ordering Provider: BECKY Yuen [facility] ([place]) LABORATORYOrdered By: Janelle Cai on 07-04-2022 Albumin [...] Interpretation Code AO Chemistry S [facility] ([id number]) 1945 F Date Time Provider Department 04/30/21 [facility] During your visit today, we recorded the [...] tablet by mouth once daily. - Fish Oil-Denver-3 Fatty Acids (FISH OIL OMEGA 3-6-9) 300-1,000 [...] Encounter Status:Closed by TAYLOR HERMOSILLO on 04/30/21 [facility] CNOVcurtis 04-29-2021 [facility] RIT[facility] SANTANA ([id number]) 1945 F Date Time Provider Department 04/29/21 1:15 PM [facility] During your visit today, we recorded the [...] feels similar. States they had friends from [place] come in over this past weekend. The history is provided by the patient. No fuel cell engineer was used. URI She complains of cough. [...] Laterality Date - COLONOSCOP W/ OR W/O [facility] SPEC 06/12/12 Colonoscopy repeat 2 years [...] 1 tablet by mouth once daily. Fish Oil-Denver-3 Fatty Acids (FISH OIL OMEGA 3-6-9) 300-1,000 [...] external ear (more content not included)... Normal [facility] Coronavirus 2019on 1 SARS-CoV-2 (COVID-19) RNA ARMANI+probe Ql (Unsp spec) UPPER RESPIRATORY TRACT SWAB Normal [facility] Comment on above: Performed By: #### C OVID #### [place] [address] SARS-CoV-2 (COVID-19) RNA ARMANI+probe Ql (Unsp spec) Negative for COVID19 (SARS CoV2) by RT-PCR or equivalent method. Normal Negative for COVID19 (SARS CoV2) by RT-PCR or equivalent method. [facility] Comment on above: Result Comment: This test was developed and its performance characteristics determined by [facility]. This test has been authorized by FDA under an Emergency Use Authorization (EUA). This test has been validated in accordance with the FDA's Guidance Document Policy for Diagnostics Testing in Laboratories Certified to Perform High Complexity Testing under CLIA prior to Emergency use Authorization for Coronavirus Disease 2019 during the Public Health Emergency issued on October 11, 2019. Test performed by [facility], [facility], [address] [place] [address]. Performed By: #### C OVID #### [place] [address] AIMEEOVcurtis 03-02-2021 CNOV Office Visit ([facility] ) RITIKA SANTANA ([id number]) 1945 F Date Time Provider Department 03/02/21 3:45 PM [facility] During your visit today, we recorded the [...] by mouth once daily. 0 - Fish Oil-Denver-3 Fatty Acids (FISH OIL OMEGA 3-6-9) 300-1,000 mg CpDR Take 1 capsule by mouth once daily. 0 - COMPOUNDED PRESCRIPTION Potassium 95 mg takes 1 tablet daily 0 - COMPOUNDED PRESCRIPTION Cranberry 1000 mg takes 1 capsule daily. 0 No current facility-administered medications for this visit. PAST SURGICAL HISTORY Procedure Laterality Date - COLONOSCOP W/ OR W/O [facility] SPEC 06/12/12 Colonoscopy repeat 2 years [...] daily. - (more content not included)... Normal [facility] Office Visiton 01-01-2017 Documentation of current medications (procedure) Done Invalid Interpretation Code [employer] Work Phone: [phone] Fall risk assessment No Invalid Interpretation Code [employer] Work Phone: [phone] Clinical Lists Update: Prelo tax consultant 12-29-2016 Left ventricular Ejection fraction 55 % Invalid Interpretation Code [employer] Work Phone: [phone] Lab Report: Basic Metabolic Profile (BMP)on 09-29-2016 Anion gap 10 mmol/L Invalid Interpretation Code 5-15 [employer] Work Phone: [phone] BUN/Creatinine Ratio 22.7 RATIO High 10-20 [facility] [employer] Work Phone: [phone] Calcium 9.0 mg/dL Invalid Interpretation Code 8.5-10.1 [employer] Work Phone: [phone] Chloride 103 mmol/L Invalid Interpretation Code 98-107 [employer] Work Phone: [phone] CO2 27.0 mmol/L Invalid Interpretation Code 21.0-32.0 [employer] Work Phone: [phone] Creatinine 0.79 mg/dL Invalid Interpretation Code 0.55-1.02 [employer] Phone: [phone] eGFR (non-black) 92 mL/min/{1.73_m2} Invalid Interpretation Code >60 [employer] Work Phone: [phone] eGFR (non-black) 76 mL/min/{1.73_m2} Invalid Interpretation Code >60 [employer] Work Phone: [phone] Glucose 99 mg/dL Invalid Interpretation Code 70-110 [employer] Work Phone: [phone] Potassium 3.8 mmol/L Invalid Interpretation Code 3.5-5.1 [employer] Work Phone: [phone] Sodium 140 mmol/L Invalid Interpretation Code 136-145 [employer] Phone: [phone] Urea nitrogen 18 mg/dL Invalid Interpretation Code 7-18 [employer] Phone: [phone] Lab Report: Prothrombin Time w/INRon 08-25-2016 Coagulation tissue factor induced in platelet poor plasma 13.4 s Invalid Interpretation Code 11.7-14.9 [employer] Phone: [phone] INR in blood by coagulation 1.1 {INR} Invalid Interpretation Code [employer] Phone: [phone] Office Visit: [facility] 07-13-20 Dietary management education, guidance, and counseling (procedure) yes Invalid Interpretation Code [employer] Phone: [phone] Documentation of current medications (procedure) Done Invalid Interpretation Code [employer] Phone: [phone] Office Visiton 01-03-2016 Tobacco use CPHS Never smoker Invalid Interpretation Code [employer] Phone: [phone] Replaced Document: [employer] E CG Observationson 07-01-2015 electrocardiogram interpretation Sinus Rhythm WITHIN NORMAL LIMITS Invalid Interpretation Code [employer] Phone: [phone] GE use only - for [employer] import when terms are not otherwise specified 427 ms Invalid Interpretation Code [employer] Phone: [phone] P wave axis, electrocardiogram 67 deg Invalid Interpretation Code [employer] Phone: [phone] MD interval, electrocardiogram 124 ms Invalid Interpretation Code [employer] Phone: [phone] Pulse (Heart Rate) 80 /min Invalid Interpretation Code [employer] Phone: [phone] QRS axis, electrocardiogram 24 deg Invalid Interpretation Code [employer] Phone: [phone] QRS duration, electrocardiogram 88 ms Invalid Interpretation Code [employer] Phone: [phone] QT interval, electrocardiogram new path ms Invalid Interpretation Code [employer] Phone: [phone] T wave axis, electrocardiogram 33 deg Invalid Interpretation Code [employer] Phone: [phone] Office Visiton 12-30-2014 cardiac risk group B Invalid Interpretation Code [employer] Phone: [phone] General cardiovascular disease 10Y risk [#] Kristin.Erick'Agostsocrates Not enough information Invalid Interpretation Code [facility] Work Phone: [phone] Lab Report: MGon 04-28-2014 Magnesium 2.0 mg/dL Normal 1.8-2.4 [facility] Work Phone: [phone] Replaced Document: Mumtaz KWOK Observationson 04-23-2014 Pulse (Heart Rate) 438 ms Invalid Interpretation Code [facility] Work Phone: [phone] Clinical Lists Update: Prelo tax consultant 03-31-2014 Erythrocytes (RBC) 3.59 10*6/uL [facility] Work Phone: [phone] Hematocrit (HCT) 32.3 % Low [facility] Work Phone: [phone] Hemoglobin (HGB) 11.2 g/dL Low [facility] Work Phone: [phone] MCH 31.2 pg Invalid Interpretation Code [facility] Work Phone: [phone] MCHC 34.7 g/dL Invalid Interpretation Code [facility] Work Phone: [phone] MCV 90.0 fL Invalid Interpretation Code [facility] Work Phone: [phone] Platelets 293 10*3/mm3 Invalid Interpretation Code [facility] Work Phone: [phone] WBC (Leukocytes) 10.0 10*3/uL Invalid Interpretation Code [facility] Work Phone: [phone] Vital Signs Date Time Vital Sign Value Performing Clinician Facility 02-24-2025 11:06-0400 Diastolic blood pressure 66 mm[Hg] Billy Gonzalez APRN - COLLAR TURNER OPERATOR Work Phone: [facility] [employer] 02-24-2025 11:06-0400 Systolic blood pressure 132 mm[Hg] Billy Gonzalez APRN - COLLAR TURNER OPERATOR Work Phone: [facility] [employer] 02-24-2025 11:03-0400 Body height 160 cm Billy Gonzalez APRN - COLLAR TURNER OPERATOR Work Phone: [facility] [employer] 02-24-2025 11:03-0400 Body mass index (BMI) [Ratio] 25.15 kg/m2 Billy Gonzalez APRN - COLLAR TURNER OPERATOR Work Phone: [facility] [employer] 02-24-2025 11:03-0400 Body weight 64.41 kg Billy Gonzalez PROCESS ENGINEERING TECHNICIAN - COLLAR TURNER OPERATOR Work Phone: [facility] 02-24-2025 11:03-0400 Heart rate 72 /min Billy Gonzalez PROCESS ENGINEERING TECHNICIAN - COLLAR TURNER OPERATOR Work Phone: [facility] 02-11-2025 07:44-0400 Body height 160.02 cm BECKY MAST NUTRITION SERVICES WORKER Work Phone: [facility] 02-11-2025 07:44-0400 Body mass index (BMI) [Ratio] 25.3 kg/m2 BECKY MAST NUTRITION SERVICES WORKER Work Phone: [facility] 02-11-2025 07:44-0400 Body weight 64.86 kg BECKY MAST NUTRITION SERVICES WORKER Work Phone: [facility] 02-11-2025 07:44-0400 Diastolic blood pressure 72 mm[Hg] BECKY MAST NUTRITION SERVICES WORKER Work Phone: [facility] 02-11-2025 07:44-0400 Heart rate 58 /min BECKY MAST NUTRITION SERVICES WORKER Work Phone: [facility] 02-11-2025 07:44-0400 Respiratory rate 18 /min BECKY MAST NUTRITION SERVICES WORKER Work Phone: [facility] 02-11-2025 07:44-0400 SaO2% (BldA) [Mass fraction] 98 % BECKY MAST NUTRITION SERVICES WORKER Work Phone: [facility] 02-11-2025 07:44-0400 Systolic blood pressure 116 mm[Hg] BECKY MAST NUTRITION SERVICES WORKER Work Phone: [facility] 01-26-2025 13:10-0400 Heart rate 88 /min Washington Rosario MD Work Phone: [facility] 01-26-2025 13:10-0400 Respiratory rate 18 /min Washington Rosario MD Work Phone: [facility] 01-26-2025 12:05-0400 Body temperature 97 [degF] Washington Rosario MD Work Phone: [facility] 01-26-2025 12:05-0400 Diastolic blood pressure 52 mm[Hg] Washington Rosario MD Work Phone: [facility] 01-26-2025 12:05-0400 SaO2% (BldA) [Mass fraction] 97 % Washington Rosario MD Work Phone: [facility] 01-26-2025 12:05-0400 Systolic blood pressure 123 mm[Hg] Washington Rosario MD Work Phone: [facility] 01-26-2025 06:00-0400 Body mass index (BMI) [Ratio] 25.58 kg/m2 Washington Rosario MD Work Phone: [facility] [facility] 01-26-2025 06:00-0400 Body weight 65.5 kg Washington Rosario MD Work Phone: [facility] 01-13-2025 07:54-0400 Body height 160 cm Washington Rosario MD Work Phone: [facility] 01-13-2025 00:18-0400 SaO2% (BldA) [Mass fraction] 97.2 % Washington Rosario MD Work Phone: [facility] 01-12-2025 18:36-0400 SaO2% (BldA) [Mass fraction] 98.1 % Washington Rosario MD Work Phone: [facility] 01-08-2025 23:25-0400 Body temperature 98.2 [degF] BECKY MAST NUTRITION SERVICES WORKER Work Phone: [facility] 01-08-2025 23:25-0400 Diastolic blood pressure 61 mm[Hg] BECKY MAST NUTRITION SERVICES WORKER Work Phone: [facility] 01-08-2025 23:25-0400 Heart rate 88 /min BECKY MAST NUTRITION SERVICES WORKER Work Phone: [facility] 01-08-2025 23:25-0400 Respiratory rate 16 /min BECKY MAST NUTRITION SERVICES WORKER Work Phone: [facility] 01-08-2025 23:25-0400 SaO2% (BldA) [Mass fraction] 95 % BECKY MAST NUTRITION SERVICES WORKER Work Phone: [facility] 01-08-2025 23:25-0400 Systolic blood pressure 136 mm[Hg] BECKY MAST NUTRITION SERVICES WORKER Work Phone: [facility] 01-07-2025 20:01-0400 Body temperature 97.2 [degF] BECKY MAST NUTRITION SERVICES WORKER Work Phone: [facility] 01-07-2025 20:01-0400 Diastolic blood pressure 69 mm[Hg] BECKY MAST NUTRITION SERVICES WORKER Work Phone: [facility] 01-07-2025 20:01-0400 Heart rate 94 /min BECKY MAST NUTRITION SERVICES WORKER Work Phone: [facility] 01-07-2025 20:01-0400 Respiratory rate 17 /min BECKY MAST NUTRITION SERVICES WORKER Work Phone: [facility] 01-07-2025 20:01-0400 SaO2% (BldA) [Mass fraction] 97 % BECKY MAST NUTRITION SERVICES WORKER Work Phone: [facility] 01-07-2025 20:01-0400 Systolic blood pressure 147 mm[Hg] BECKY MAST NUTRITION SERVICES WORKER Work Phone: [facility] 01-07-2025 15:46-0400 Body temperature 98.6 [degF] BECKY MAST NUTRITION SERVICES WORKER Work Phone: [facility] 01-07-2025 15:46-0400 Diastolic blood pressure 80 mm[Hg] BECKY MAST NUTRITION SERVICES WORKER Work Phone: [facility] 01-07-2025 15:46-0400 Heart rate 87 /min BECKY MAST NUTRITION SERVICES WORKER Work Phone: [facility] 01-07-2025 15:46-0400 SaO2% (BldA) [Mass fraction] 94 % BECKY MAST NUTRITION SERVICES WORKER Work Phone: [facility] 01-07-2025 15:46-0400 Systolic blood pressure 132 mm[Hg] BECKY MAST NUTRITION SERVICES WORKER Work Phone: [facility] 01-07-2025 15:40-0400 Body height 160.02 cm BECKY MAST NUTRITION SERVICES WORKER Work Phone: [facility] 01-07-2025 14:00-0400 Diastolic blood pressure 85 mm[Hg] BECKY MAST NUTRITION SERVICES WORKER Work Phone: [facility] 01-07-2025 14:00-0400 Heart rate 101 /min BECKY MAST NUTRITION SERVICES WORKER Work Phone: [facility] 01-07-2025 14:00-0400 SaO2% (BldA) [Mass fraction] 98 % BECKY MAST NUTRITION SERVICES WORKER Work Phone: [facility] 01-07-2025 14:00-0400 Systolic blood pressure 167 mm[Hg] BECKY MAST NUTRITION SERVICES WORKER Work Phone: [facility] 01-07-2025 13:32-0400 Body temperature 98 [degF] BECKY MAST NUTRITION SERVICES WORKER Work Phone: [facility] 01-07-2025 10:17-0400 Body height 160.02 cm BECKY MAST NUTRITION SERVICES WORKER Work Phone: [facility] 01-07-2025 10:17-0400 Body mass index (BMI) [Ratio] 27.1 kg/m2 BECKY MAST NUTRITION SERVICES WORKER Work Phone: [facility] 01-07-2025 10:17-0400 Body weight 69.67 kg BECKY MAST NUTRITION SERVICES WORKER Work Phone: [facility] 01-07-2025 07:09-0400 Body mass index (BMI) [Ratio] 27.1 kg/m2 BECKY MAST NUTRITION SERVICES WORKER Work Phone: [facility] 01-07-2025 07:09-0400 Body weight 69.39 kg BECKY MAST NUTRITION SERVICES WORKER Work Phone: [facility] 01-07-2025 07:09-0400 Diastolic blood pressure 81 mm[Hg] BECKY MAST NUTRITION SERVICES WORKER Work Phone: [facility] 01-07-2025 07:09-0400 Heart rate 81 /min BECKY MAST NUTRITION SERVICES WORKER Work Phone: [facility] 01-07-2025 07:09-0400 Respiratory rate 18 /min BECKY MAST NUTRITION SERVICES WORKER Work Phone: [facility] 01-07-2025 07:09-0400 SaO2% (BldA) [Mass fraction] 9 % BECKY MAST NUTRITION SERVICES WORKER Work Phone: [facility] 01-07-2025 07:09-0400 Systolic blood pressure 135 mm[Hg] BECKY MAST NUTRITION SERVICES WORKER Work Phone: [facility] 10-23-2024 13:48-0400 Diastolic blood pressure 80 mm[Hg] BECKY MAST NUTRITION SERVICES WORKER Work Phone: [facility] 10-23-2024 13:48-0400 Systolic blood pressure 140 mm[Hg] BECKY MAST NUTRITION SERVICES WORKER Work Phone: [facility] 10-23-2024 08:46-0400 Body mass index (BMI) [Ratio] 27.1 kg/m2 BECKY MAST NUTRITION SERVICES WORKER Work Phone: [facility] 10-23-2024 08:46-0400 Body weight 69.39 kg BECKY MAST NUTRITION SERVICES WORKER Work Phone: [facility] 10-23-2024 08:46-0400 Heart rate 94 /min BECKY MAST NUTRITION SERVICES WORKER Work Phone: [facility] 10-23-2024 08:46-0400 Respiratory rate 18 /min BECKY MAST NUTRITION SERVICES WORKER Work Phone: [facility] 10-23-2024 08:46-0400 SaO2% (BldA) [Mass fraction] 98 % BECKY MAST NUTRITION SERVICES WORKER Work Phone: [facility] 06-27-2021 07:29-0500 Body height [address] SHAWNA KEITA MD [facility] 06-27-2021 07:29-0500 Body temperature 97.16 [degF] DR SHAWNA KEITA MD [facility] 06-27-2021 07:29-0500 Body weight 63.[address] SHAWNA KEITA MD [facility] 06-27-2021 07:29-0500 diastolic 77 mm[Hg] DR SHAWNA KEITA MD [facility] 06-27-2021 07:29-0500 Heart rate 98 /min DR SHAWNA KEITA MD [facility] 06-27-2021 07:29-0500 Respiratory rate 21 /min DR SHAWNA KEITA MD [facility] 06-27-2021 07:29-0500 systolic 144 mm[Hg] DR SHAWNA KEITA MD [facility] 01-01-2017 10:46-0400 BMI (Body Mass Index) 26.69 kg/m2 Agustina Chappell [facility] Work Phone: 01-01-2017 10:46-0400 BP Diastolic 78 mm[Hg] Agustina Hoang [facility] Work Phone: 01-01-2017 10:46-0400 BP [...] to original px Billy Gonzalez APRN - COLLAR TURNER OPERATOR Work Phone: [facility] Cardiovascular Thoracic Surgery - Jose Comment on above: S/P CABG (coronary a rtery bypass graft) (Primary Dx) Start: 02-11-2025 End: 02-11-2025 ambulatory BECKY MAST NUTRITION SERVICES WORKER Work Phone: -Radiology [facility] Start: 02-11-2025 End: 02-11-2025 Patient encounter procedure Noe Nguyễn ID -Radiology [facility] Work Phone: Start: 02-11-2025 End: 02-11-2025 Patient encounter procedure Noe Nguyễn PA -[facility] Work Phone: Start: 02-11-2025 End: 02-11-2025 ambulatory BECKY MAST NUTRITION SERVICES WORKER Work Phone: -[facility] Start: 02-11-2025 End: 02-11-2025 ambulatory Noe Demiter Facility:[facility] Start: 02-06-2025 End: 02-10-2025 ambulatory BECKY MAST PROCESS ENGINEERING TECHNICIAN-COLLAR TURNER OPERATOR Facility:[facility] Start: 02-06-2025 End: 02-10-2025 Outreach Lab BECKY MAST PROCESS ENGINEERING TECHNICIAN-COLLAR TURNER OPERATOR [facility] Start: 02-04-2025 ambulatory Sukhdev Leni HAND Facili ty:[facility] Start: 02-04-2025 [facility]istered [facility] Start: 02-03-2025 ambulatory Sukhdev Leni OLS Facili ty:[facility] Start: 02-03-2025 Registered [facility] Start: 01-28-2025 ambulatory Sukhdevmert HAND Facili ty:[facility] Start: 01-28-2025 Registered Referred [facility] Start: 01-09-2025 Non-patient / Non-visit Dr. Danial Salazar DO -[facility] Work Phone: Start: 01-09-2025 End: 01-26-2025 Evaluation and management of inpatient Washington Rosario MD Work Phone: [facility] Cardiac Thoracic Vascular Intensive Care Unit CTV ICU T1 Start: 01-08-2025 Non-patient / Non-visit [facility] Start: 01-07-2025 ambulatory BECKY MAST CR COMPUTER SYSTEMS HARDWARE ANALYST Work Phone: [facility] Work Phone: Start: 01-07-2025 Non-patient / Non-visit Dr. Richard White MD -[facility] Start: 01-07-2025 ambulatory BECKY MAST Facility:[facility] Start: 01-07-2025 Non-patient / Non-visit Dr. Washington Damico DO [facility] Work Phone: Start: 01-07-2025 End: 01-08-2025 Evaluation and management of inpatient Dr. Washington Damico DO [facility] Unit Work Phone: Start: 01-07-2025 End: 01-07-2025 Patient encounter procedure Noe Nguyễn ID -[facility] Work Phone: Start: 01-07-2025 End: 01-07-2025 ambulatory BECKY MAST NUTRITION SERVICES WORKER Work Phone: [facility] Work Phone: Start: 10-23-2024 End: 10-23-2024 Patient encounter procedure Layla Silver ID -[facility] Work Phone: Start: 10-23-2024 End: 10-23-2024 ambulatory BECKY MAST Facility:[facility] Start: 10-02-2023 End: 10-03-2023 ambulatory BECKY MAST PROCESS ENGINEERING TECHNICIAN-COLLAR TURNER OPERATOR Facility:[facility] Start: 10-02-2023 End: 10-02-2023 Patient encounter procedure BECKY MAST PROCESS ENGINEERING TECHNICIAN-COLLAR TURNER OPERATOR [facility] Start: 09-26-2023 End: 09-27-2023 ambulatory BECKY MAST PROCESS ENGINEERING TECHNICIAN-COLLAR TURNER OPERATOR Facility:[facility] Start: 07-04-2022 End: 07-04-2022 Patient encounter procedure SHANNA MADRIGAL PROCESS ENGINEERING TECHNICIAN-COLLAR TURNER OPERATOR [facility] Start: 07-04-2022 End: 07-04-2022 Well adult monitoring check done SHANNA MADRIGAL PROCESS ENGINEERING TECHNICIAN-COLLAR TURNER OPERATOR [facility] Start: 06-28-2021 End: 06-28-2021 Patient encounter procedure SHANNA MADRIGAL PROCESS ENGINEERING TECHNICIAN-COLLAR TURNER OPERATOR [facility] Start: 06-27-2021 End: 06-27-[address] SHAWNA KEITA MD [facility] Start: 05-23-2021 End: 05-23-2021 Patient encounter procedure SHANNA MADRIGAL PROCESS ENGINEERING TECHNICIAN-COLLAR TURNER OPERATOR [facility] Procedures Date Procedure Procedure Detail Performing Clinician Start: 02-11-2025 X-ray of chest, PA a nd lateral views BECKY KHAN Work Phone: Start: 02-10-2025 History of coronary artery bypass grafting S/P CABG (coronary artery bypass graft) Billymaryann Gonzalez PROCESS ENGINEERING TECHNICIAN - COLLAR TURNER OPERATOR Work Phone: Start: 01-26-2025 Basic metabolic pane l calcium total Lacho Coreas MD Work Phone: Start: 01-25-2025 Radiologic exam ches t single view Tamara Gaines PROCESS ENGINEERING TECHNICIAN - COLLAR TURNER OPERATOR Work Phone: Start: 01-25-2025 Comprehensive metabo lic panel Luiz Lynne PROCESS ENGINEERING TECHNICIAN - COLLAR TURNER OPERATOR Work Phone: Start: 01-24-2025 Comprehensive metabo lic panel Luiz Lynne PROCESS ENGINEERING TECHNICIAN - COLLAR TURNER OPERATOR Work Phone: Start: 01-23-2025 Radiologic exam ches t single view Luiz Lynne PROCESS ENGINEERING TECHNICIAN - COLLAR TURNER OPERATOR Work Phone: Start: 01-23-2025 End: 01-23-2025 Comprehensive metabolic panel Luiz Lynne PROCESS ENGINEERING TECHNICIAN - COLLAR TURNER OPERATOR Work Phone: Start: 01-22-2025 Potassium serum plasma/whole blood Lacho Coreas MD Work Phone: Start: 01-22-2025 Potassium serum plasma/whole blood Lacho Coreas MD Work Phone: Start: 01-22-2025 Comprehensive metabo lic panel Luiz Block Guera PROCESS ENGINEERING TECHNICIAN - COLLAR TURNER OPERATOR Work Phone: Start: 01-21-2025 Ecg routine ecg w/le ast 12 lds trcg only w/o i&r Luiz Block Guera PROCESS ENGINEERING TECHNICIAN - COLLAR TURNER OPERATOR Work Phone: Start: 01-21-2025 Comprehensive metabo lic panel Luiz RobertDima Lynne PROCESS ENGINEERING TECHNICIAN - COLLAR TURNER OPERATOR Work Phone: Start: 01-21-2025 Radiologic exam ches t single view Luizjesenia Lynne PROCESS ENGINEERING TECHNICIAN - COLLAR TURNER OPERATOR Work Phone: Start: 01-20-2025 Comprehensive metabo lic panel Manolo Huff MD Work Phone: Start: 01-19-2025 Comprehensive metabo lic panel Manolo Huff MD Work Phone: Start: 01-19-2025 Radiologic exam ches t single view Billy Gonzalez PROCESS ENGINEERING TECHNICIAN - COLLAR TURNER OPERATOR Work Phone: Start: 01-18-2025 End: 01-18-2025 Calcium ionized Manolo Huff MD Work Phone: Start: 01-18-2025 Comprehensive metabo lic panel Luiz RobertDima Lynne PROCESS ENGINEERING TECHNICIAN - COLLAR TURNER OPERATOR Work Phone: Start: 01-18-2025 Radiologic exam ches t single view Billy Carlos PROCESS ENGINEERING TECHNICIAN - COLLAR TURNER OPERATOR Work Phone: Start: 01-17-2025 Radiologic exam ches t single view Billy Islaser PROCESS ENGINEERING TECHNICIAN - COLLAR TURNER OPERATOR Work Phone: Start: 01-17-2025 Comprehensive metabo lic panel Luiz RobertDima Lynne PROCESS ENGINEERING TECHNICIAN - COLLAR TURNER OPERATOR Work Phone: Start: 01-16-2025 Radiologic exam ches t single view Billy Gonzalez PROCESS ENGINEERING TECHNICIAN - COLLAR TURNER OPERATOR Work Phone: Start: 01-16-2025 Comprehensive metabo lic panel Tamara Gaines PROCESS ENGINEERING TECHNICIAN - COLLAR TURNER OPERATOR Work Phone: Start: 01-15-2025 Radiologic exam ches t single view Billy Gonzalez PROCESS ENGINEERING TECHNICIAN - COLLAR TURNER OPERATOR Work Phone: Start: 01-15-2025 Comprehensive metabo lic panel Tamara Gaines PROCESS ENGINEERING TECHNICIAN - COLLAR TURNER OPERATOR Work Phone: Start: 01-15-2025 Ecg routine ecg w/le ast 12 lds trcg only w/o i&r Job Simons MD Work Phone: Start: 01-15-2025 Radiologic exam ches t single view Job Simons MD Work Phone: Start: 01-15-2025 Calcium ionized Manolo Huff MD Work Phone: Start: 01-15-2025 Compatibility each u nit electronic Luiz Gillchristaldioni PROCESS ENGINEERING TECHNICIAN - COLLAR TURNER OPERATOR Work Phone: Start: 01-14-2025 End: 01-14-2025 Ecg routine ecg w/least 12 lds trcg only w/o i&r Lacho Coreas MD Work Phone: Start: 01-14-2025 Radiologic exam abdo men 1 view Tamara Christa Gaines PROCESS ENGINEERING TECHNICIAN - COLLAR TURNER OPERATOR Work Phone: Start: 01-14-2025 End: 01-14-2025 Potassium serum plasma/whole blood Lacho Coreas MD Work Phone: Start: 01-14-2025 Thoracentesis needle /cath pleura w/imaging Manolo Huff MD Work Phone: Start: 01-14-2025 End: 01-14-2025 Assay of phosphorus inorganic Manolo Huff MD Work Phone: Start: 01-14-2025 Radiologic exam ches t single view Billy Gonzalez PROCESS ENGINEERING TECHNICIAN - COLLAR TURNER OPERATOR Work Phone: Start: 01-14-2025 Ecg routine ecg w/le ast 12 lds trcg only w/o i&r Billy Islastaqueria SENA - COLLAR TURNER OPERATOR Work Phone: Start: 01-14-2025 Basic metabolic pane l calcium total Billy Islastaqueria SENA - COLLAR TURNER OPERATOR Work Phone: Start: 01-13-2025 End: 01-13-2025 Basic [...] t single view Billy Islastaqueria SENA - COLLAR TURNER OPERATOR Work Phone: Start: 01-13-2025 Ecg routine ecg w/le ast 12 lds trcg only w/o i&r Billy Islastaqueria SENA - COLLAR TURNER OPERATOR Work Phone: Start: 01-13-2025 End: 01-13-2025 Glucose quantitative blood xcpt reagent strip Washington Rosario MD Work Phone: Start: 01-13-2025 Glucose quantitative blood xcpt reagent strip Washington Rosario MD Work Phone: Start: 01-13-2025 End: 01-13-2025 Basic metabolic panel calcium total Billy Islastaqueria SENA - COLLAR TURNER OPERATOR Work Phone: Start: 01-13-2025 End: 01-13-2025 Glucose quantitative blood xcpt reagent strip Washington Rosario MD Work Phone: Start: 01-13-2025 Blood gases any combination ph pco2 po2 co2 hco3 Billy Gonzalez PROCESS ENGINEERING TECHNICIAN - COLLAR TURNER OPERATOR Work Phone: Start: 01-12-2025 End: 01-12-2025 Blood [...] Start: 01-12-2025 BEDSIDE SPIROMETRY Andr kevin Islaser PROCESS ENGINEERING TECHNICIAN - COLLAR TURNER OPERATOR Work Phone: Start: 01-12-2025 End: 01-12-2025 Glucose quantitative blood xcpt reagent strip Washington Rosario MD Work Phone: Start: 01-12-2025 End: 01-12-2025 Basic metabolic panel calcium total Luiz Lynne PROCESS ENGINEERING TECHNICIAN - COLLAR TURNER OPERATOR Work Phone: Start: 01-12-2025 Blood gases any combination ph pco2 po2 co2 hco3 Luiz Lynne PROCESS ENGINEERING TECHNICIAN - COLLAR TURNER OPERATOR Work Phone: Start: 01-12-2025 Radiologic exam ches t single view Billy Carlos PROCESS ENGINEERING TECHNICIAN - COLLAR TURNER OPERATOR Work Phone: Start: 01-12-2025 Ecg routine ecg w/le ast 12 lds trcg only w/o i&r Billy Carlos PROCESS ENGINEERING TECHNICIAN - COLLAR TURNER OPERATOR Work Phone: Start: 01-12-2025 End: 01-12-2025 Echo transesophag r-t 2d w/prb img acquisj i&r Luiz Lynne PROCESS ENGINEERING TECHNICIAN - COLLAR TURNER OPERATOR Work Phone: Start: 01-12-2025 Blood gases any combination ph pco2 po2 co2 hco3 Washington Rosario MD Work Phone: Start: 01-12-2025 Comprehensive metabo lic panel Washington Rosario MD Work Phone: Start: 01-12-2025 End: 01-12-2025 Cabg w/arterial graft three arterial grafts Lacho Coreas MD Work Phone: Start: 01-12-2025 End: 01-12-2025 Comprehensive metabolic panel Billy Gonzalez PROCESS ENGINEERING TECHNICIAN - COLLAR TURNER OPERATOR Work Phone: Start: 01-12-2025 Lipid panel Luiz Birmingham PROCESS ENGINEERING TECHNICIAN - COLLAR TURNER OPERATOR Work Phone: Start: 01-12-2025 Lipid 1996 panel - S hay or Plasma Billy Gonzalez PROCESS ENGINEERING TECHNICIAN - COLLAR TURNER OPERATOR Work Phone: Start: 01-11-2025 Thromboplastin time partial plasma/whole blood Billy Gonzalez PROCESS ENGINEERING TECHNICIAN - COLLAR TURNER OPERATOR Work Phone: Start: 01-11-2025 Antibody screen PCP NON E Comment on above: Order Comment: Speci men is valid for 3 days - nurse to verify valid specimen Performed By: #### L [id number] ####In House Cra: CHELSIE ISAACS ([id number])[facility] BLOOD [facility] ([address] Start: 01-11-2025 ABO and Rh group [Ty pe] in Blood by Confirmatory method Luiz Lynne PROCESS ENGINEERING TECHNICIAN - COLLAR TURNER OPERATOR Work Phone: Start: 01-11-2025 Blood typing serologic abo Luiz Lynne PROCESS ENGINEERING TECHNICIAN - COLLAR TURNER OPERATOR Work Phone: Start: 01-11-2025 Thromboplastin time partial plasma/whole blood Billy Gonzalez PROCESS ENGINEERING TECHNICIAN - COLLAR TURNER OPERATOR Work Phone: Start: 01-11-2025 TTE w or wo fol wcon,Doppler Billy Gonzalez PROCESS ENGINEERING TECHNICIAN - COLLAR TURNER OPERATOR Work Phone: Start: 01-11-2025 Comprehensive metabo lic panel Bilyl Gonzalez APRN - COLLAR TURNER OPERATOR Work Phone: Start: 01-10-2025 Thromboplastin time partial plasma/whole blood Billy Gonzalez APRN - COLLAR TURNER OPERATOR Work Phone: Start: 01-10-2025 Thromboplastin time partial plasma/whole blood Billy Gonzalez PROCESS ENGINEERING TECHNICIAN - COLLAR TURNER OPERATOR Work Phone: Start: 01-10-2025 Comprehensive metabo lic panel Billy Gonzalez PROCESS ENGINEERING TECHNICIAN - COLLAR TURNER OPERATOR Work Phone: Start: 01-09-2025 Thromboplastin time partial [...] Start: 01-08-2025 Coagulation time, activated BECKY MAST NUTRITION SERVICES WORKER Work Phone: Start: 01-08-2025 Estimated creatinine clearance BECKY MAST NUTRITION SERVICES WORKER Work Phone: Start: 01-07-2025 X-ray of chest, PA a nd lateral views BECKY MAST NUTRITION SERVICES WORKER Work Phone: Start: 01-07-2025 D-dimer assay, quantitative BECKY MAST NUTRITION SERVICES WORKER Work Phone: Comment on above: NORMAL D-Dimer level (<0.50) indicates no DVT or PE. Start: 01-07-2025 Estimated creatinine clearance BECKY KHAN Work Phone: Start: 06-05-2022 Lesion (morphologic abnormality) SHANNA MADRIGAL PROCESS ENGINEERING TECHNICIAN-COLLAR TURNER OPERATOR Comment on above: removal of cancerous lesion [...] Start: 08-13-1981 Cyst (morphologic abnormality) SHANNA MADRIGAL PROCESS ENGINEERING TECHNICIAN-COLLAR TURNER OPERATOR History of coronary artery bypass grafting S/P CABG x 4 BECKY MAST PROCESS ENGINEERING TECHNICIAN-COLLAR TURNER OPERATOR History of coronary artery bypass grafting S/P CABG x 4 BECKY MAST NUTRITION SERVICES WORKER Work Phone: History of coronary artery bypass grafting S/P CABG x 4 Noe MALLORY History of coronary artery bypass grafting S/P CABG (coronary artery bypass graft) Billy Gonzalez PROCESS ENGINEERING TECHNICIAN - COLLAR TURNER OPERATOR Work Phone: Injection of eye BECKY MAST PROCESS ENGINEERING TECHNICIAN-COLLAR TURNER OPERATOR Plan of Treatment Date Care Activity Detail Author Start: 01-12-2030 Lipid panel [facility] Start: 04-13-2025 Influenza vaccination Influenza Vaccine (#1) [facility] Start: 03-10-2025 End: 03-10-2025 Telemedicine consultation with patient 03/10/2025 11:30 AM EDT Telemedicine [facility] Thoracic [facility] [address] [place] [id number] Billy Gonzalez, PROCESS ENGINEERING TECHNICIAN - COLLAR TURNER OPERATOR [address] [place], [place] [id number] [facility] Thoracic [facility] Start: 02-11-2025 Evaluation of diagnostic study results [facility] Start: 02-10-2025 End: 02-10-2025 ambulatory [facility] Thoracic [facility] Start: 01-08-2025 [facility] Start: 01-08-2025 Electrocardiographic procedure [facility] Start: 01-08-2025 Patient discharge [facility] Start: 01-07-2025 End: 01-08-2025 Partial thromboplastin time, activated [facility] Start: 01-07-2025 Following clinical pathway protocol [facility] Start: 01-07-2025 Ambulation without limitation [facility] Start: 01-07-2025 Assessment of risk of venous thromboembolism [facility] Start: 01-07-2025 Cardiac rehabilitation - phase 1 [facility] Start: 01-07-2025 Insertion of catheter into peripheral vein [facility] Start: 01-07-2025 Measuring intake and output [facility] Start: 01-07-2025 Oxygen therapy [facility] Start: 01-07-2025 Providing care according to standard [facility] Start: 01-07-2025 Referral to naphtha washing system operator [facility] Start: 01-07-2025 Tobacco use cessation education [facility] Start: 01-07-2025 [facility] Start: 01-07-2025 Patient referral [facility] Work Phone: Start: 01-07-2025 Verification routine [facility] Start: 01-07-2025 Hospital admission, emergency, from emergency room, medical nature [facility] Start: 01-07-2025 Admission procedure [facility] Start: 01-07-2025 End: 01-08-2025 [facility] Start: 01-07-2025 Evaluation of diagnostic study results [facility] Start: 01-07-2025 [facility] Start: 11-04-2024 COVID-19 Vaccine () COVID-19 Vaccine () [facility] [employer] Start: 11-04-2024 [facility] [employer] Start: 08-13-2024 Medicare Advantage Annual Wellness Visit Medicare Advantage Annual Wellness Visit [facility] [employer] Start: 08-13-2024 [facility] [employer] Start: 07-20-2017 End: 07-20-2017 Appointment Appointment [facility] Work Phone: Start: 01-01-2017 End: 01-01-2017 Appointment Appointment [facility] Work Phone: Start: 01-01-2017 End: 01-01-2017 Follow Up Appt 6 months Follow Up Appt 6 months [facility] Work Phone: Start: 01-01-2017 End: 01-01-2017 MMM MMM [facility] Work Phone: Start: 09-04-2016 End: 09-29-2016 *BMP *BMP [facility] Work Phone: Start: 08-29-2016 End: 08-30-2016 *BMP *BMP [facility] Work Phone: Start: 08-25-2016 End: 08-25-2016 Coagulation factor induced.INR assay in platelet poor plasma *PT/INR [facility] Work Phone: Start: 07-13-2016 End: 07-13-2016 Follow Up Appt Other Follow Up Appt Other [facility] Work Phone: Start: 01-03-2016 End: 01-03-2016 Follow Up Appt 6 months Follow Up Appt 6 months [facility] Work Phone: Start: 01-03-2016 End: 01-03-2016 MMM MMM [facility] Work Phone: Start: 07-01-2015 End: 07-01-2015 Electrocardiogram, complete EKG (In office) [facility] Work Phone: Start: 07-01-2015 End: 07-01-2015 Follow Up Appt 6 months Follow Up Appt 6 months [facility] Work Phone: Start: 07-01-2015 End: 07-01-2015 PFM PFM [facility] Work Phone: Start: 12-30-2014 End: 12-30-2014 Follow Up Appt 6 months Follow Up Appt 6 months [facility] Work Phone: Start: 12-30-2014 End: 12-30-2014 MMM MMM [facility] Work Phone: Start: 07-02-2014 End: 10-28-2014 *BMP *BMP [facility] Work Phone: Start: 2014 End: 2014 Follow Up Appt 6 months Follow Up Appt 6 months [facility] Work Phone: Start: 2014 End: 2014 Follow Up Appt Other Follow Up Appt Other [facility] Work Phone: Start: 2014 End: 2014 PFM PFM [facility] Work Phone: Start: 04-23-2014 End: 04-28-2014 *BMP *BMP [facility] Work Phone: Start: 04-23-2014 End: 04-23-2014 Electrocardiogram, complete EKG (In office) [facility] Work Phone: Start: 04-23-2014 End: 04-23-2014 Follow Up Appt 6 weeks Follow Up Appt 6 weeks [facility] Work Phone: Start: 04-23-2014 End: 04-28-2014 Magnesium *Magnesium [facility] Work Phone: Start: 04-23-2014 End: 04-23-2014 MMM MMM [facility] Work Phone: Start: 04-23-2014 End: 04-23-2014 Nuclear stress test -exercise Nuclear stress test -exercise [facility] Work Phone: Start: 1965 DTaP/Tdap/Td Vaccines (1 - Tdap) DTaP/Tdap/Td Vaccines (1 - Tdap) [facility] Start: 1965 [facility] Start: 1964 Hepatitis C screening [facility] Start: 1958 Depression Screening Depression Screening [facility] Start: 1958 [facility] Start: 1946 Screening for osteoporosis [facility] Anion gap in Serum or Plasma [facility] Basic metabolic 2008 panel with ionized calcium - Serum or Plasma [facility] BUN/Creatinine ratio [facility] Calcium [Mass/volume ] in Serum or Plasma [facility] Carbon dioxide, tota l [Moles/volume] in Central venous blood [facility] CBC W Auto Different ial panel - Blood [facility] Comprehensive metabo lic 1999 panel - Serum or Plasma [facility] Creatinine [Mass/vol ume] in Serum or Plasma [facility] Erythrocyte mean cor puscular volume determination [facility] Glucose [Mass/volume ] in Serum or Plasma [facility] Hematocrit [Volume F raction] of Blood [facility] Hemoglobin [Mass/vol ume] in Blood [facility] Leukocytes [#/volume ] in Blood [facility] Lipid 1996 panel - S hay or Plasma [facility] Mean corpuscular hem oglobin concentration determination [facility] Mean corpuscular hem oglobin determination [facility] Measurement of renal function [facility] Natriuretic peptide. B prohormone N-Terminal [Mass/volume] in Serum or Plasma [facility] Neutrophil count [facility] Neutrophil percent differential count [facility] Patient Education [facility] Work Phone: Patient referral [facility] Work Phone: Platelets [#/volume] in Blood [facility] Potassium measurement [facility] Red blood cell count [facility] Red cell distributio n width determination [facility] Serum chloride measurement [facility] Sodium measurement [facility] Urea nitrogen [Mass/ volume] in Serum or Plasma [facility] XR Chest PA and Lateral [facility] Immunizations Immunization Date Immunization Notes Care Provider [facility] 05-07-2024 influenza virus vacc ine, unspecified formulation Billy Islaser PROCESS ENGINEERING TECHNICIAN - COLLAR TURNER OPERATOR Work Phone: [facility] 08-16-2023 RSV vaccine, preF A- preF B, recombinant BECKY MAST PROCESS ENGINEERING TECHNICIAN-COLLAR TURNER OPERATOR [facility] 05-11-2023 SARS-CoV-2 mRNA (euqlbzjlqqd-lzuy-dctfia e) vaccine BECKY MAST PROCESS ENGINEERING TECHNICIAN-COLLAR TURNER OPERATOR [facility] Comment on above: Result Comment: Madi Alexander. IM left upper arm 05-05-2023 influenza virus vacc ine, unspecified formulation BECKY MAST PROCESS ENGINEERING TECHNICIAN-COLLAR TURNER OPERATOR [facility] 04-26-2022 influenza virus vacc ine, unspecified formulation SHANNA MADRIGAL PROCESS ENGINEERING TECHNICIAN-COLLAR TURNER OPERATOR [facility] 11-29-2021 SARS-CoV-2 (COVID-19 ) mRNA-1273 vaccine SHANNAGERRY BUSTILLOSERS PROCESS ENGINEERING TECHNICIAN-COLLAR TURNER OPERATOR [facility] 06-23-2021 SARS-CoV-2 (COVID-19 ) mRNA-1273 vaccine SHANNA MADRIGAL PROCESS ENGINEERING TECHNICIAN-COLLAR TURNER OPERATOR [facility] 06-03-2021 influenza virus vacc ine, unspecified formulation SHANNA MADRIGAL PROCESS ENGINEERING TECHNICIAN-COLLAR TURNER OPERATOR [facility] 11-26-2020 SARS-CoV-2 (COVID-19 ) mRNA-1273 vaccine SHANNA MADRIGAL PROCESS ENGINEERING TECHNICIAN-COLLAR TURNER OPERATOR [facility] Comment on above: Result Comment: 2020: [id number] 10-29-2020 SARS-CoV-2 (COVID-19 ) mRNA-1273 vaccine SHANNA MADRIGAL PROCESS ENGINEERING TECHNICIAN-COLLAR TURNER OPERATOR [facility] Comment on above: Result Comment: 2020: [id number] 04-02-2020 influenza virus vacc ine, unspecified formulation HSANNA MADRIGAL PROCESS ENGINEERING TECHNICIAN-COLLAR TURNER OPERATOR [facility] 05-02-2019 influenza virus vacc ine, unspecified formulation SHANNA MADRIGAL PROCESS ENGINEERING TECHNICIAN-COLLAR TURNER OPERATOR [facility] 04-10-2019 zoster vaccine recombinant SHANNA MADRIGAL PROCESS ENGINEERING TECHNICIAN-COLLAR TURNER OPERATOR [facility] 12-24-2018 zoster vaccine recombinant SHANNA MADRIGAL PROCESS ENGINEERING TECHNICIAN-COLLAR TURNER OPERATOR [facility] 04-25-2018 influenza virus vacc ine, unspecified formulation SHANNA MADRIGAL PROCESS ENGINEERING TECHNICIAN-COLLAR TURNER OPERATOR [facility] 04-25-2018 pneumococcal conjuga te vaccine, 13 valent SHANNA MADRIGAL PROCESS ENGINEERING TECHNICIAN-COLLAR TURNER OPERATOR [facility] 04-25-2018 pneumococcal polysaccharide vaccine, 23 valent SHANNA MADRIGAL PROCESS ENGINEERING TECHNICIAN-COLLAR TURNER OPERATOR [facility] 04-30-2017 influenza virus vacc ine, unspecified formulation SHANNA MADRIGAL PROCESS ENGINEERING TECHNICIAN-COLLAR TURNER OPERATOR [facility] 04-30-2017 pneumococcal conjuga te vaccine, 13 valent SHANNA MADRIGAL PROCESS ENGINEERING TECHNICIAN-COLLAR TURNER OPERATOR [facility] 04-21-2016 influenza virus vacc ine, unspecified formulation SHANNAGERRY MADRIGAL PROCESS ENGINEERING TECHNICIAN-COLLAR TURNER OPERATOR [facility] 05-10-2015 influenza virus vacc ine, unspecified formulation SHANNA MADRIGAL PROCESS ENGINEERING TECHNICIAN-COLLAR TURNER OPERATOR [facility] 05-24-2014 zoster vaccine, live SHANNA MADRIGAL PROCESS ENGINEERING TECHNICIAN-COLLAR TURNER OPERATOR [facility] Payers Date Payer Category Payer Private Health Insurance [id number] 2025 Self-pay [id number] 2024 Self-pay 2024 [facility] [id number] 2024 Medicare HMO [id number] 2023 Unknown [id number] 1945 Unknown [id number]. 2.627 1945 Unknown [id number] 2.16.840.1.130439.3.579. 2.627 1945 Unknown [id number] 2.16.840.1.080888.3.579. 2.627 Unknown [id number] 2.16.840.1.814017.3.579. 2.462 Unknown [id number] 2.16.840.1.784014.3.579. 2.462 Unknown [id number] 2.16.840.1.687488.3.579. 2.462 Unknown [id number] 2.16.840.1.694990.3.579. 2.462 Unknown [id number] 2.16.840.1.322268.3.579. 2.462 Unknown [id number] 2.16.840.1.810306.3.579. 2.462 Unknown [id number] 2.16.840.1.312386.3.579. 2.462 Unknown [id number] 2.16.840.1.868567.3.579. 2.462 Unknown [id number] 2.16.840.1.327835.3.579. 2.462 Unknown [id number] 2.16840.1.131675.3.579. 2.462 Unknown [id number] 2.16.840.1.022105.3.579. 2.462 Unknown [id number] 2.16840.1.696295.3.579. 2.462 Unknown [id number] [id number]. 2.462 Social History Date Type Detail Facility Start: 01-17-2021 End: 01-09-2025 Never smoked tobacco (finding) [facility] Sex Assigned At [facility] Start: 03-28-2014 Alcohol Alcohol [facility] Start: 03-28-2014 Drugs Drugs [facility] Start: 03-28-2014 Lives Lives [facility] Start: 03-28-2014 Tobacco Use Tobacco Use [facility] Start: 1945 Sex Assigned At Female [facility] Start: 01-26-2025 End: 02-10-2025 Alcoholic beverage intake Lifetime non-drinker (finding) [facility] Start: 01-09-2025 End: 01-26-2025 History of Social function [facility] Start: 01-09-2025 End: 01-26-2025 Alcohol Use Disorder Identification Test - Consumption [AUDIT-C] [facility] How often to you hav e a drink containing alcohol? Monthly or less [facility] How many standard dr inks containing alcohol do you have on a typical day? 1 or 2 [facility] How often do you hav e 6 or more drinks on 1 occasion? Never [facility] Start: 1945 Sex assigned at [facility] Start: 01-08-2025 Sex Female (finding) [facility] Medical Equipment Procedure Code Equipment Code Equipment Origin al Text Equipment Identifier Dates [id number] Start: 01-12-2025 Goals Date Patient Goal Desired Activity /State Functional Status Date Assessment Result Facility 01-08-2025 Functional status Ambulates;Bath room Privilege [facility] Work Phone: 01-07-2025 Functional status Up ad elizabeth [facility] Work Phone: [facility] Mental Status Date Assessment Result Facility 01-08-2025 Cognitive function Voice/Name [facility] Work Phone: 01-07-2025 [facility] function [facility] Work Phone: 01-07-2025 Cognitive function [facility] Work Phone: Clinical Notes 10-06-2020 to 02-24-2025 Billy Gonzalez APRN - ROBERTO - 02/24/2025 11:00 AM Carolyn Ramirez RN - 01/26/2025 2:23 PM Avis Salas RN - 01/18/2025 9:50 AM Pam Adams RN - 01/15/2025 7:53 AM EDT Note Date & Type Note Facility 02-24-2025 History of Present illness Narrative Images from the original note were not included. [facility]: [facility] [address] [facility] [address] Dept: [phone] Dept Loc: [phone] Visit type: Established patient - in person [...] A-fib, hypertension, presented to the ED at [facility] with complaints of worsening shortness of [...] involving left main She was transferred to [facility] for surgical evaluation. Surgery was discussed [...] medically hemodynamically stable she was discharged to [facility] on 01/26/25, POD#14. 02/24/25: 79 y.o. female [...] This note may have been dictated using [employer] Edition 2.6 and/or [employer] Voice Recognition Feature. The document was proofread, however unrecognized voice recognition tourist escort errors may be present. documented in this encounter [facility] 02-11-2025 Radiology Diagnostic study note [facility] Imaging Services [address] [place], [place] [address] Chest PA and Lateral MR#: [id number] Acct: [id number] Name: RITIKA SANTANA Rep #: [id number] : 1945 F 79 From: Brien Amador MD PCP: ERIN GRANT Status: REG CLI Study:Chest PA and Lateral Date of Exam: 02/11/25 Exam# [id number] Ordering Dr: Noe Nguyễn PROCEDURE: CHEST PA AND LATERAL 02/11/2025 REASON FOR EXAM: ABNORMAL LUNG SOUNDS, HX PLEURAL EFFUSION TECHNIQUE: CHEST PA AND LATERAL COMPARISON: PA and lateral chest of 01/07/2025. RAD/Chest PA and Lateral IMPRESSION: The lateral view is limited by significant patient motion. Generalized osteopenia with significant kyphosis again noted. No interval osseous change is appreciated. Interval sternotomy. Small right and cauor-uc-ztrkoprt left pleural effusions are now seen. No pulmonary edema is identified. No focal infiltrate is seen. No pneumothorax is evident. Borderline cardiomegaly, not clearly changed since the prior study. Reading Location: [place] [address] CC: ERIN GRANT; SHAWNEE Bright ~ Crop Nutrition Scientist: Signed [facility] 02-02-2025 Note Patient Choice Patient Name: RITIKA SANTANA Date of : 1945 All Providers Sent Referral Name: [facility] Acute Rehab Address: [address] [place] [address] 01-26-2025 Nurse Note Report called to SNF. [...] closer to 5-6am. documented in this encounter [facility] 01-26-2025 History of Present illness Narrative [...] original note were not included. OCCUPATIONAL THERAPY [facility] Treatment Note Name/MRN: Ritika Santana ([id number]) Date of : 1945 Age: 79 y.o. [...] original note were not included. PHYSICAL THERAPY [facility] Treatment Note Name/MRN: Ritika Santana ([id number]) Date of : 1945 Age: 79 y.o. [...] the original note were not included. Cardiothoracic Surgery/[facility] Progress Note PATIENT NAME: Ritika Santana DATE: 01/26/25 HPI: 79-year-old female with past medical history of macular degeneration, GERD, paroxysmal A-fib, hypertension, presented to the ED at [facility] with complaints of worsening shortness of [...] involving left main She was transferred to [facility] for surgical evaluation. Surgery was discussed [...] of 15 minutes were spent between the dvpu-xp-ifsb encounter, physical exam, reviewing the medical history, [...] EF: 55% 01/11/25 Blood Conservation: Transfused postoperatively Fuel Verification Technician: Dr. Ruth ([place]) Cosigned by Lacho Coreas MD at 01/26/2025 [...] the original note were not included. Cardiothoracic Surgery/[facility] Progress Note PATIENT NAME: Ritika Santana DATE: 01/25/25 HPI: 79-year-old female with past medical history of macular degeneration, GERD, paroxysmal A-fib, hypertension, presented to the ED at [facility] with complaints of worsening shortness of [...] involving left main She was transferred to [facility] for surgical evaluation. Surgery was discussed [...] of 23 minutes were spent between the uzvi-wv-hcgt encounter, physical exam, reviewing the medical history, coordinating the patient's care, counseling/educating the patient, ordering medications/test/procedures, interpreting results and documenting clinical information in the patients electronic health record on the day of the encounter. The patient was seen and examined Cardiac Core Medications: Plavix, Statin, and BB EF: 55% 01/11/25 Blood Conservation: transfused postop Fuel Verification Technician: Dr. Ruth ([place]) Cosigned by Sharad Holman DO at 01/25/2025 3:04 PM EDT Images from the original note were not included. Cardiothoracic Surgery/[facility] Progress Note PATIENT NAME: Ritika Santana DATE: 01/24/25 HPI: 79-year-old female with past medical history of macular degeneration, GERD, paroxysmal A-fib, hypertension, presented to the ED at [facility] with complaints of worsening shortness of [...] involving left main She was transferred to [facility] for surgical evaluation. Surgery was discussed [...] of 27 minutes were spent between the kjlx-ep-mxjm encounter, physical exam, reviewing the medical history, coordinating the patient's care, counseling/educating the patient, ordering medications/test/procedures, interpreting results and documenting clinical information in the patients electronic health record on the day of the encounter. The patient was seen and examined Cardiac Core Medications: Plavix, Statin, and BB EF: 55% 01/11/25 Blood Conservation: transfused postop Fuel Verification Technician: Dr. Ruth ([place]) Cosigned by Sharad Holman DO at 01/24/2025 [...] muscle mass loss Fluid Accumulation: Mild Extremities Pasting Inspector Strength: Not Performed Nutrition Assessment: Per chart, pt with PMH of macular degeneration, GERD, paroxysmal A-fib, hypertension, presented to the ED at [facility] with complaints of worsening shortness of [...] involving left main. She was transferred to [facility] on 01/09 for surgical evaluation. Surgery [...] is dairy tolerance, however agreeable to trialing [employer]. RD encouraged small amounts throughout the day and reviewed nutrient dense foods to promote PO intake and meet pt's increased nutrition needs; pt understanding and appreciative. Estimated Daily Nutrient Needs: Energy Requirements Based On: Kcal/kg Weight Used for Energy Requirements: [place] Weight for Energy Calculation (kg): 52 kg Total Energy Requirements (kcals/day): 3835-3566 kcal/day (25-30) Weight Used for Protein Requirements: [place] Weight in Kg Used for Protein Requirements: [...] 01/09) Usual Body Weight: (153# on 10/23/24) [place] Body Weight (lbs) (Calculated): 115 lbs [place] Body Weight (Kg) (Calculated): 52 kg % [place] Body Weight (Calculated): 141.7 % BMI (kg/m2) [...] to determine [place] [place] RD, LD Contact: [id number] Images from the original note were not included. PHYSICAL THERAPY [facility] Treatment Note Name/MRN: Ritika Santana ([id number]) Date of : 1945 Age: 79 y.o. [...] Treatment Minutes: (GT, FA, TP) April [place], TELEPHONE SOLICITOR SUPERVISOR Cosigned by Samantha Arce, PT at 01/23/2025 3:48 PM EDT Images from the original note were not included. Cardiothoracic Surgery/[facility] Progress Note PATIENT NAME: Ritika Santana DATE: 01/23/25 HPI: 79-year-old female with past medical history of macular degeneration, GERD, paroxysmal A-fib, hypertension, presented to the ED at [facility] with complaints of worsening shortness of [...] involving left main She was transferred to [facility] for surgical evaluation. Surgery was discussed [...] of 18 minutes were spent between the bbyc-wj-lbjh encounter, physical exam, reviewing the medical history, [...] EF: 55% 01/11/25 Blood Conservation: Transfused postoperatively Fuel Verification Technician: Dr. Ruth ([place]) Cosigned by Sharad Holman DO at 01/23/2025 5:52 PM EDT Images from the original note were not included. PHYSICAL THERAPY [facility] Treatment Note Name/MRN: Ritika Santana ([id number]) Date of : 1945 Age: 79 y.o. [...] Code Treatment Minutes: (GT, TP) April [place], TELEPHONE SOLICITOR SUPERVISOR Cosigned by Samantha Arce PT at 01/22/2025 4:18 PM EDT Images from the original note were not included. Cardiothoracic Surgery/[facility] Progress Note PATIENT NAME: Ritika Santana DATE: 01/22/25 HPI: 79-year-old female with past medical history of macular degeneration, GERD, paroxysmal A-fib, hypertension, presented to the ED at [facility] with complaints of worsening shortness of [...] involving left main She was transferred to [facility] for surgical evaluation. Surgery was discussed [...] of 15 minutes were spent between the dbgo-lm-pafo encounter, physical exam, reviewing the medical history, coordinating the patient's care, counseling/educating the patient, ordering medications/test/procedures, interpreting results and documenting clinical information in the patients electronic health record on the day of the encounter. The patient was seen and examined. Cardiac Core Medications: Plavix, Statin, and BB EF: 55% 01/11/25 Blood Conservation: Transfused Fuel Verification Technician: Dr. Ruth ([place]) Cosigned by Sharad Holman DO at 01/22/2025 4:23 PM EDT Images from the original note were not included. PHYSICAL THERAPY [facility] Treatment Note Name/MRN: Ritika Santana ([id number]) Date of : 1945 Age: 79 y.o. [...] A-fib, hypertension, presented to the ED at [facility] with complaints of worsening shortness of [...] involving left main She was transferred to [facility] for surgical evaluation. Surgery was discussed [...] PT/OT: IPR (01/19/25) TCC/Discharge Planning: Accepting to [facility], now awaiting insurance auth. Central Line: []Yes [x] No Arterial Line: []Yes [x] No Swift: []Yes [x] No Restraints: []Yes [x] No Patient discussed and plan of day developed from multidisciplinary rounds between Cardiothoracic Surgery (Cardiothoracic Surgeon, CONSTANCE) and Critical Care Attending A total of 22 minutes were spent between the rkvs-vu-oghm encounter, physical exam, reviewing the medical history, coordinating the patient's care, counseling/educating the patient, ordering medications/test/procedures, interpreting results and documenting clinical information in the patients electronic health record on the day of the encounter. The patient was seen and examined. Cardiac Core Medications: ASA, Statin, and BB EF: 55% 01/11/25 Blood Conservation: Transfused Fuel Verification Technician: Dr. Ruth ([place]) Cosigned by Sharad Holman DO at 01/21/2025 9:54 AM EDT Images from the original note were not included. OCCUPATIONAL THERAPY [facility] Treatment Note Name/MRN: Ritika Santana ([id number]) Date of : 1945 Age: 79 y.o. [...] task- Pt with good understanding. Adaptive Equipment: Body Sander and sock aid 2/2 trials- Pt required MOD A for LB Dressing task with trial of well cleaner to doff gripper socks with hand under hand assist for improved technique d/t difficulty getting ahold of sock and not foam heel protectors when trial without hand under hand assist. Pt required MIN A with trial of sock aid to fani gripper socks with verbal cues for improved [...] Daily Activity Raw Score: 15 ADL Inpatient [facility] G-Code Modifier: CK Goals Patient Stated Goal: to go to [place] for rehab Encounter Problems Encounter Problems (Active) [...] original note were not included. PHYSICAL THERAPY [facility] Treatment Note Name/MRN: Ritika Santana ([id number]) Date of : 1945 Age: 79 y.o. [...] A-fib, hypertension, presented to the ED at [facility] with complaints of worsening shortness of [...] involving left main She was transferred to [facility] for surgical evaluation. Surgery was discussed [...] overnight. No acute issues. Referral sent for [facility]. Objective: Last BM Date: 01/19/25 Vitals: [...] Planning: Would like to attempt IPR in [place]. Referral sent. Central Line: []Yes [x] No Arterial Line: []Yes [x] No Swift: []Yes [x] No Restraints: []Yes [x] No Patient discussed and plan of day developed from multidisciplinary rounds between Cardiothoracic Surgery (Cardiothoracic Surgeon, CONSTANCE) and Critical Care Attending A total of 20 minutes were spent between the vjri-qu-mwrd encounter, physical exam, reviewing the medical history, coordinating the patient's care, counseling/educating the patient, ordering medications/test/procedures, interpreting results and documenting clinical information in the patients electronic health record on the day of the encounter. The patient was seen and examined. Cardiac Core Medications: ASA, Statin, and BB EF: 55% 01/11/25 Blood Conservation: Transfused Fuel Verification Technician: Dr. Ruth ([place]) Cosigned by Sharad Holman DO at 01/20/2025 1:01 PM EDT Nutrition Assessment Type and Reason for Visit: Reassess Nutrition Recommendations/Plan: Continue APRIL diet. Will discontinue carb limit to promote PO intake (no hx of DM, Endocrinology signed off) Continue ONS: Ensure Clear BID Pt received heart healthy diet handout with [facility] RD phone number. Provided brief overview [...] aging) Fluid Accumulation: No significant fluid accumulation Pasting Inspector Strength: Not Performed Nutrition Assessment: Per chart, pt with PMH of macular degeneration, GERD, paroxysmal A-fib, hypertension, presented to the ED at [facility] with complaints of worsening shortness of [...] involving left main. She was transferred to [facility] on 01/09 for surgical evaluation. Surgery [...] RD Provided heart healthy diet handout with [facility] RD Phone number. Briefly reviewed diet principles: low fat dairy, lean proteins, increasing vegetable and whole fruits as well as whole grains. Pt denies need for diet education, preferring to review information on her own. Estimated Daily Nutrient Needs: Energy Requirements Based On: Kcal/kg Weight Used for Energy Requirements: [place] Weight for Energy Calculation (kg): 52 kg Total Energy Requirements (kcals/day): 9299-2504 kcal/day (25-30) Weight Used for Protein Requirements: [place] Weight in Kg Used for Protein Requirements: [...] 01/09) Usual Body Weight: (153# on 10/23/24) [place] Body Weight (lbs) (Calculated): 115 lbs [place] Body Weight (Kg) (Calculated): 52 kg % [place] Body Weight (Calculated): 141.7 % BMI (kg/m2) [...] to determine Karolyn Kumar RD, LD Contact: *[phone] or via [employer] chat [1] aspirin, 81 mg, Oral, Daily [...] original note were not included. PHYSICAL THERAPY [facility] Treatment Note Name/MRN: iRtika Santana ([id number]) Date of : 1945 Age: 79 y.o. [...] the original note were not included. Cardiothoracic Surgery/[facility] Progress Note PATIENT NAME: Ritika Santana DATE: 01/19/25 HPI: 79-year-old female with past medical history of macular degeneration, GERD, paroxysmal A-fib, hypertension, presented to the ED at [facility] with complaints of worsening shortness of [...] involving left main She was transferred to [facility] for surgical evaluation. Surgery was discussed [...] DC plan, patient willing to go to [facility]. Objective: Last BM Date: 01/19/25 Vitals: [...] Planning: Would like to attempt IPR in [place]. Start auth as able. Central Line: []Yes [x] No Arterial Line: []Yes [x] No Swift: []Yes [x] No Restraints: []Yes [x] No Patient discussed and plan of day developed from multidisciplinary rounds between Cardiothoracic Surgery (Cardiothoracic Surgeon, CONSTANCE) and Critical Care Attending A total of 25 minutes were spent between the espa-nb-eupv encounter, physical exam, reviewing the medical history, coordinating the patient's care, counseling/educating the patient, ordering medications/test/procedures, interpreting results and documenting clinical information in the patients electronic health record on the day of the encounter. The patient was seen and examined. Cardiac Core Medications: ASA, Statin, and BB EF: 55% 01/11/25 Blood Conservation: Transfused Fuel Verification Technician: Dr. Ruth ([place]) Cosigned by Sharad Holman DO at 01/19/2025 3:21 PM EDT Images from the original note were not included. Cardiothoracic Surgery/[facility] Progress Note PATIENT NAME: Ritika Santana DATE: 01/18/25 HPI: 79-year-old female with past medical history of macular degeneration, GERD, paroxysmal A-fib, hypertension, presented to the ED at [facility] with complaints of worsening shortness of [...] involving left main She was transferred to [facility] for surgical evaluation. Surgery was discussed [...] of 16 minutes were spent between the qmgy-by-eqcu encounter, physical exam, reviewing the medical history, [...] EF: 55% 01/11/25 Blood Conservation: Transfused postoperatively Fuel Verification Technician: Dr. Ruth ([place]) Cosigned by Manolo Huff MD at 01/18/2025 9:38 AM EDT Associated attestation - Manolo Huff MD - 01/18/2025 9:38 AM EDT I have personally performed a face to face diagnostic evaluation on this patient today on 01/18/25. Labs, imaging studies, and electronic medical record notes on [employer] have been reviewed by me. This note documented and discussed by the []liaison officer []Fellow [x] CONSTANCE reflects my history, [...] A-fib, hypertension, presented to the ED at [facility] with complaints of worsening shortness of [...] involving left main She was transferred to [facility] for surgical evaluation. Surgery was discussed [...] of 18 minutes were spent between the lkts-uj-mrng encounter, physical exam, reviewing the medical history, [...] EF: 55% 01/11/25 Blood Conservation: Transfused postoperatively Fuel Verification Technician: Dr. Ruth ([place]) Cosigned by Manolo Huff MD at 01/17/2025 1:07 PM EDT Associated attestation - Manolo Huff MD - 01/17/2025 1:07 PM EDT I have personally performed a face to face diagnostic evaluation on this patient today on 01/17/25. Labs, imaging studies, and electronic medical record notes on [employer] have been reviewed by me. This note documented and discussed by the []liaison officer []Fellow [x] CONSTANCE reflects my history, [...] b-clark Lasix diuresis as tolerated Transfuse prn [facility] Respiratory Care Department Progress Note Comment or [...] original note were not included. PHYSICAL THERAPY [facility] Treatment Note Name/MRN: Ritika Santana ([id number]) Date of : 1945 Age: 79 y.o. [...] A-fib, hypertension, presented to the ED at [facility] with complaints of worsening shortness of [...] involving left main She was transferred to [facility] for surgical evaluation. Surgery was discussed [...] BB EF: 55% (01/11/25) Blood Conservation: Transfused Fuel Verification Technician: [facility] Cosigned by Manolo Huff MD at 01/16/2025 12:27 PM EDT Associated attestation - Manolo Huff MD - 01/16/2025 12:27 PM EDT I have personally performed a face to face diagnostic evaluation on this patient today on 01/16/25. Labs, imaging studies, and electronic medical record notes on [employer] have been reviewed by me. This note documented and discussed by the []liaison officer []Fellow [x] CONSTANCE reflects my history, [...] b-clark Lasix diuresis as tolerated Transfuse prn [facility] Respiratory Care Department Progress Note Comment or [...] original note were not included. PHYSICAL THERAPY [facility] Treatment Note Name/MRN: Ritika Santana ([id number]) Date of : 1945 Age: 79 y.o. [...] ox, temporary pacer, chest tube to suction, wsift, 4L O2 NC, art line LUE, CVC [...] the original note were not included. Cardiothoracic Surgery/[facility] Progress Note PATIENT NAME: Ritika Santana DATE: 01/15/25 HPI: 79-year-old female with past medical history of macular degeneration, GERD, paroxysmal A-fib, hypertension, presented to the ED at [facility] with complaints of worsening shortness of [...] involving left main She was transferred to [facility] for surgical evaluation. Surgery was discussed [...] BB EF: 55% (01/11/25) Blood Conservation: Transfused Fuel Verification Technician: [facility] Cosigned by Manolo Huff MD at 01/15/2025 11:05 AM EDT Associated attestation - Manolo Huff MD - 01/15/2025 11:05 AM EDT I have personally performed a face to face diagnostic evaluation on this patient today on 01/15/25. Labs, imaging studies, and electronic medical record notes on [employer] have been reviewed by me. This note documented and discussed by the []liaison officer []Fellow [x] CONSTANCE reflects my history, [...] original note were not included. PHYSICAL THERAPY [facility] Treatment Note Name/MRN: Ritika Santana ([id number]) Date of : 1945 Age: 79 y.o. [...] Timed Code Treatment Minutes: (TP) April Hills, TELEPHONE SOLICITOR SUPERVISOR Cosigned by Samantha Arce PT at 01/16/2025 7:28 AM EDT Images from the original note were not included. OCCUPATIONAL THERAPY [facility] Initial Evaluation Name/MRN: Ritika Santana ([id number]) Evaluation Date: 01/14/2025 Date of : 1945 [...] vessel 01/09/2025 NSTEMI (non-ST elevated myocardial infarction) ([facility]) 01/09/2025 GERD (gastroesophageal reflux disease) 01/09/2025 A-fib (CMS/HCC) ([facility]) 01/09/2025 HTN (hypertension) 01/09/2025 Medical Precautions: [...] Responsibilities: Independent Receives Help From: Spouse Active Literacy Consultant: Prior Level of Function Prior Level of [...] Assist Assist to manage lines and navigate Negoodideazs d/t art line in L hand. Pt [...] of Care supervision is transferred to a [facility] Therapy Services Occupational Therapist. Goals and/or treatment [...] Provider/Team Requesting Consult: cts PCP: Becky Marinelli Collator: No ASSESSMENT: Stress hyperglycemia Prediabetes CABGx4 CAD/HTN [...] CHOLHDLRATIO 4 01/09/2025 No results found for: [id number] No results found for: TSH, C8UEDJD, T7UEDMU, THYROIDAB Radiology reportsas per the Radiologist Radiology: CT chest wo IV contrast Result Date: 01/09/2025 Patient Name: RITIKA SANTANA : 1945 [facility]#: [id number] Exam Date/Time: 01/09/2025 10:16 Procedure: CT CHEST [...] age. Report Dictated on Electronically Signed By: Gimlar Simmons MD Electronically Signed Date/Time: 01/09/2025 4:04 [...] 01/09/2025 Patient Name: RITIKA SANTANA : 1945 [id number] Exam Date/Time: 01/09/2025 09:06 Procedure: XR CHEST [...] 10-150 mcg/min, Last Rate: 15 mcg/min (01/14/25 7883) [3] PRN medications: albumin human, calcium carbonate, [...] the original note were not included. Cardiothoracic Surgery/[facility] Progress Note PATIENT NAME: Ritika Santana DATE: 01/14/25 HPI: 79-year-old female with past medical history of macular degeneration, GERD, paroxysmal A-fib, hypertension, presented to the ED at [facility] with complaints of worsening shortness of [...] involving left main She was transferred to [facility] for surgical evaluation. Surgery was discussed [...] hypotension EF: 55% (01/11/25) Blood Conservation: Transfused Fuel Verification Technician: [facility] Cosigned by Manolo Huff MD at 01/14/2025 11:26 AM EDT Associated attestation - Manolo Huff MD - 01/14/2025 11:26 AM EDT I have personally performed a face to face diagnostic evaluation on this patient today on 01/14/25. Labs, imaging studies, and electronic medical record notes on [employer] have been reviewed by me. This note documented and discussed by the []liaison officer []Fellow [x] CONSTANCE reflects my history, [...] hypertension, initially presented to the ED at [facility] with complaints of worsening shortness of [...] involving left main. Patient was transferred to [facility] for surgical evaluation. s/p CABGx4, LAAL, [...] On: Kcal/kg Weight Used for Energy Requirements: [place] Weight for Energy Calculation (kg): 52 kg Total Energy Requirements (kcals/day): 0072-6617 kcal/day (25-30) Weight Used for Protein Requirements: [place] Weight in Kg Used for Protein Requirements: [...] Weight: (Per Epic -> 01/09/25 150# (ss)) [place] Body Weight (lbs) (Calculated): 115 lbs [place] Body Weight (Kg) (Calculated): 52 kg % [place] Body Weight (Calculated): 141.7 % BMI (kg/m2) [...] soon to determine Anna Montez RD Contact: *[phone] Images from the original note were not included. PHYSICAL THERAPY [facility] Initial Evaluation Name/MRN: Ritika Santana ([id number]) Evaluation Date: 01/13/2025 Date of : 1945 [...] vessel 01/09/2025 NSTEMI (non-ST elevated myocardial infarction) ([facility]) 01/09/2025 GERD (gastroesophageal reflux disease) 01/09/2025 A-fib (CMS/HCC) ([facility]) 01/09/2025 HTN (hypertension) 01/09/2025 Medical Precautions: No active isolations Proper PPE donned/doffed in accordance with facility standards. Fall Risk: Suaoz Fall Risk Score: 50 (High Risk) Precautions/Restrictions: [...] Responsibilities: Independent Receives Help From: Spouse Active Literacy Consultant: Prior Level of Function Prior Level of ADL Function: Independent Prior Level of Mobility: Independent; Device: None Prior Level of Transfers: Independent Objective Transfers/Mobility Sit to stand: Min Assist Stand to sit: Min Assist From recliner, required 2 attempts to achieve standing, edu on sternal precautions Device(s) used: weave energy Ambulation Assistive device(s) used: Axonifynella Assist level: Min Assist Distance (ft): 25 Quality of gait: slow latanya, instability through all phases, required increased time to perform, cues for upright posture, O2 sats 99-100% on 4L O2 Balance During Session: Posture: fair Standing - Static: at [facility], CGA Other exercises Other exercises?: Yes [...] Raw Score (No Stairs) : 14 [facility] Score: Walked 25 ft or more (i.e. [...] of Care supervision is transferred to a [facility] Therapy Services Physical Therapist. Goals and/or treatment [...] Provider/Team Requesting Consult: cts PCP: Becky Marinelli Collator: No ASSESSMENT: Stress hyperglycemia Prediabetes CABGx4 CAD/HTN [...] CHOLHDLRATIO 4 01/09/2025 No results found for: [id number] No results found for: TSH, C4TINSS, X8ETGJC, THYROIDAB Radiology reportsas per the Radiologist Radiology: CT chest wo IV contrast Result Date: 01/09/2025 Patient Name: RITIKA SANTANA : 1945 [facility]#: [id number] Exam Date/Time: 01/09/2025 10:16 Procedure: CT CHEST [...] 01/09/2025 Patient Name: RITIKA SANTANA : 1945 [id number] Exam Date/Time: 01/09/2025 09:06 Procedure: XR CHEST [...] the original note were not included. Cardiothoracic Surgery/[facility] Progress Note PATIENT NAME: Ritika Santana DATE: 01/13/25 HPI: 79-year-old female with past medical history of macular degeneration, GERD, paroxysmal A-fib, hypertension, presented to the ED at [facility] with complaints of worsening shortness of [...] involving left main She was transferred to [facility] for surgical evaluation. Surgery was discussed and she consented. She was taken to the operating room on 01/12/[address] Coreas Surgery/Procedure: 01/12/25: s/p CABGx4 (BLANCO to LAD, svg to PDA, svg to OM1, svg to diag) with Dr. Coreas Interval History: 01/13/25, POD# 0: Extubated by [facility], increase bleeding from CTs overnight -->transfused; alert [...] EF: 55% 01/11/25 Blood Conservation: Transfused postoperatively Fuel Verification Technician: Dr. Ruth ([place]) Cosigned by Manolo Huff MD at 01/13/2025 10:00 AM EDT Associated attestation - Manolo Huff MD - 01/13/2025 10:00 AM EDT I have personally performed a face to face diagnostic evaluation on this patient today on 01/13/25. Labs, imaging studies, and electronic medical record notes on [employer] have been reviewed by me. This note documented and discussed by the []liaison officer []Fellow [x] CONSTANCE reflects my history, [...] Critical Care time at least 40 minutes [facility] Respiratory Care Department Progress Note Spontaneous Awakening [...] 1352 01/12/25 1555 PHART 7.357 7.256* 7.333* GYN6XYO 35.1 44.1 39.5 PO2ART 320.7* 164.0* 122.0* UPL3DMQ 19.3* 19.2* 20.5* [id number] Ventilator Ventilator Ventilator Does this patient meet [...] A-fib, hypertension, presented to the ED at [facility] with complaints of worsening shortness of [...] involving left main She was transferred to [facility] for surgical evaluation. Interval History: 01/11/25: [...] of 30 minutes were spent between the uien-zf-benu encounter, physical exam, reviewing the medical history, coordinating the patient's care, counseling/educating the patient, ordering medications/test/procedures, interpreting results and documenting clinical information in the patients electronic health record on the day of the encounter. The patient was seen and examined Nutrition rescreen completed. Chart reviewed. Patient to be monitored and followed by the diet structures technician. TRUE Tinoco Patient arrived to floor. Nursing eval reveals patient has intact cath site and stable vital signs. We will admit patient and assess CAD. Regular diet and activity for now. Full assessment imminent. documented in this encounter [facility] 01-26-2025 Miscellaneous Notes Patient Choice Patient Name: RITIKA SANTANA Date of : 1945 All Providers Sent Referral Name: [email or web address]. Phone: [phone] Address: [address] [place] [address] Discharge med list transmitted to [facility] via [facility] per TCC request. 7000 completed in [facility] per TCC request. Facility notified via [employer]. Confirmed pickup time of 1500 by transport company [employer] at phone number [phone]. Location of facility drop off is [facility]. Facility notified via [facility]port, [facility] notified on secure chat. Insurance authorization received for [facility], discharge order obtained, transportation set for 3pm. Requested MAR/discharge orders be sent to facility and Patient/Family, residential treatment staff updated. Care Management Progress Note Chart reviewed, s/p CABG x 4 01/12. Updated PT/OT note requested this am. Facility notified and insurance auth for [facility] started this am. Length of Stay (Days): [...] by Lissa Malloy RN Outcome: Progressing Problem: Knowledge Deficit Goal: [...] success. I spoke with [employer]qu[employer] Wolfe at [facility] this am and they currently do not [...] England RN Outcome: Progressing 01/22/[id number] by Yin nEgland RN Outcome: Progressing Problem: Potential for Compromised [...] by Yin England RN Outcome: Progressing Requested [facility] start insurance authorization. Referral placed [facility] per TCC request. Await review and response regarding ability to accept. TCC notified. Follow-up discussion had at the bedside with Patient and Spouse regarding discharge plan. They requested a referral be made to [facility]. [facility]. Care Management Progress Note Chart reviewed, [...] phone call from Chhaya at [facility] that Pamela is requesting a Peer to Peer for Rehab admission. Needs done before 8am: 01/22/25 [birth year], Member ID-[employer]IC[employer]AGE [id number]? Direct line to Pamela [phone]. Information provided to PROCESS ENGINEERING TECHNICIAN. Patient and Spouse updated at the bedside and SNF List with medicare star ratings explained and provided as a back-up plan. Referral placed to [facility] via [facility]port per TCC request. Care Management Progress Note Chart reviewed, s/p CABG x 4 01/12. PT/OT recommending IPR. Insurance authorization started 01/20. Patient and Family updated at the bedside. Length of Stay (Days): 12 GMLOS: 8.1 Received call from [facility] and confirmed with Chhaya that they [...] Nutritional Intake Outcome: Progressing Referral placed to [facility] via Careport per TCC request. Await [...] would like a referral to [facility]. Referral requested in [facility]. Length of Stay (Days): 10 GMLOS: [...] this am and sleepy. Discussion had with Rctshfbv-Jr-Yih and patient at the bedside. Discussed therapy [...] HHC and agreeable to SN/PT services with [facility]. Care [...] is noted as yes - consider a TIER OVER evaluation once the patient returns home. START PATIENT REGISTRATION INFORMATION Order Information Order Signing Physician: Lacho Coreas MD Service Ordered RN ?: Yes Service Ordered PT ?: Yes Service Ordered OT ?: No Service Ordered ST ?: No Service Ordered TIER OVER?:No Service Ordered DECKHAND FISHING VESSEL?: No Following Physician: Lacho Coreas MD Following Physician Overseeing Physician: Lacho Coreas MD (Required for Residents only) Agreeable to Follow? Yes Date/Time of Call 01/15/25 1:01 PM, Spoke with: cts protocol Care Coordination Same Day SOC?: No Primary Care Physician: Becky Mcknight Primary Care Physician Primary Care Physician Address: [address] [place] [id number] Visit Instructions: N/A Service Discharge Location Type: Home with Home Care Service Facility Name: N/A Service Floor Facility: N/A Service Room No: N/A Demographics Patient Last Name: Esther Patient First Name: Ritika Language/Communication Barrier: no Service Address: [address] [place] [address] Service City: [place] Service ST: [place] Service ZIP: [address] Service (home) Other phone numbers: Telephone Information: [...] Caregiver Phone Number: na Caregiver Notes: N/A [employer] HIGHTECH: [employer] TECH - NEXT DAY REQUEST Requests Next [...] Diabetic: blood glucose testing as directed by PCP/Collator -For recent heart surgery if patient discharged on Coumadin verify need for INR draw on visit. Activity/Weight Bearing: -Up with assistance: up in chair for all meals, ambulate 3-4 times a day -Stretching exercises per PT discharge instructions Discharge Date: pending Referral Source-PACC: (Hospital/Unit): [facility] / T1-/T1-103 A End PACC [...] IPR. Discharge plan home with Spouse and [facility] Care pending progress. Length of Stay (Days): 5 GMLOS: 8.1 Care Management Progress Note Consults to IP CONSULT TO WOUND PREVENTION Discharge Planning/Barriers: 01/12/25 0721 Rapid Rounds Attendance Water Quality Assistant Planned Discharge Disposition HH Services Today we still await Administering IV medications;Clinical stability;Tableau Architect recommendations (comment);Procedure (comment) Additional Comments: CABG today CM tasked RAZA to follow via [facility]. Discharge Plan: Home with [facility]. Case management will continue to follow for discharge planning with RAZA. Length of Stay (Days): 3 GMLOS: 1.7 Date: 01/12/2025 Location: [facility] OR Name: Ritika Santana : 1945, Diagnosis Pre-op Diagnosis * Atherosclerotic heart disease of [place] coronary artery with other forms of angina pectoris (HCC) [I25.118] Post-op Diagnosis * Atherosclerotic heart disease of [place] coronary artery with other forms of angina pectoris (HCC) [I25.118] Procedures CORONARY ARTERY BYPASS GRAFT WITH LEFT ATRIAL APPENDAGE CLIP [id number] - MD CABG W/ARTERIAL GRAFT THREE ARTERIAL GRAFTS ECHOCARDIOGRAM, TRANSESOPHAGEAL 11404 - MD ECHO TRANSESOPHAG R-T 2D W/PRB IMG ACQUISJ [...] Serial No. Clip CLIP ATRICLIP 40MM - [id number] Implanted Staff: Oriental Rug Repairer: Vanessa Galeano RN Relief Oriental Rug Repairer: Evonne Heard RN Scrub Person: Ana Wayne [...] Discharge Planning/Barrier: 01/09/25 0804 Rapid Rounds Attendance Water Quality Assistant Planned Discharge Disposition Other (TBD) Today we still await Administering IV medications;Clinical stability;Tableau Architect recommendations (comment) Additional Comments: CT-SGY Discharge Plan: TBD. Case management will continue to follow for discharge planning. Length of Stay (Days): 0 GMLOS: No GMLOS Documented documented in this encounter [facility] 01-26-2025 Note [facility] 01-26-2025 Hospital course Narrative Images from the original note were not included. Discharge Summary: Cardiothoracic Surgery Ritika Santana, 79 y.o., 1945 ADMIT DATE: 01/09/2025 DISCHARGE DATE: 01/26/2025 VISIT STATUS: Admission CODE STATUS: Full Code DISCHARGING SURGEON: Lacho Coreas MD, Office Number: [phone] DISCHARGE DIAGNOSES: MVCAD s/p CABGx 4 HTN GERD Afib Macular degeneration Post operative Pulm Management: Normal Post-operative Course Acute blood loss anemia/consumptive coagulopathy BMI CLASSIFICATION:Overweight (BMI 25.0-29.9) TREATMENT TEAM: Primary Care Physician: Becky Mcknight Fuel Verification Technician: Dr. Ruth - [place] SURGERY: s/p CABGx4 (BLANCO to LAD, svg to PDA, svg to OM1, svg to diag) with Dr. Coreas on 01/12/25 HOSPITAL COURSE: 79-year-old female with past medical history of macular degeneration, GERD, paroxysmal A-fib, hypertension, presented to the ED at [facility] with complaints of worsening shortness of [...] involving left main She was transferred to [facility] for surgical evaluation. Surgery was discussed [...] medically hemodynamically stable she was discharged to [facility] on 01/26/25, POD#14. DIAGNOSTICS: BP 112/60 (BP [...] MCLEAN February 10 2025, 10am [address] [facility] [place] [place] [address] Dept: [phone] Dept CORE CARDIAC MEDICATIONS PRESCRIBED AT DISCHARGE: [...] transfused postoperatively Chronic Lung Disease: Unknown DISPOSITION: Detention Facility - [facility] A copy of the discharge instructions which [...] SERVICE: 12:23 PM documented in this encounter [facility] 01-26-2025 Hospital Discharge instructions Billymaryann Gonzalez APRN - COLLAR TURNER OPERATOR - 01/26/2025 11:02 AM EDT Images from the original note were not included. [facility] Medical Group: Cardiothoracic Surgery [address] [facility] #[phone] Notify us if the following occur - [...] Cardiothoracic Surgery: Symptom Management Office phone number: [phone] Office is open 8:30 am -4 pm. [...] Call cardiothoracic surgery line for further instructions: [phone] Office is open 8:30 am -4 pm. [...] Dressing Minimal assistance Toileting Independent Feeding Independent Guest Relations Representative Independent Med Delivery yes Wound Care Documentation [...] Status Date: [facility] Address[facility] [address] [place] [address] Fax: Dialysis Facility (if applicable) Name: Address: Dialysis Schedule: Phone: Fax: Water Quality Assistant/Seed Cleaning Manager signature: ICIAN SECTION Name: Ritika Santana Prognosis: [...] to a nursing facility directly from an [facility] or a unit of a hospital that is not operated by or licensed by [facility] under section 5119.14 or 5160-3-15.1 5 The individual requires the level of services provided by a nursing facility for the condition for which he or she was treated in the hospital and, Physician Certification: I certify the above information and transfer of Ritika Santana is necessary for the continuing treatment of the diagnosis listed and that she requires [facility] facility for less than 30 days. Update Admission H&P: Changes in H&P as follows: see below 79-year-old female with past medical history of macular degeneration, GERD, paroxysmal A-fib, hypertension, presented to the ED at [facility] with complaints of worsening shortness of [...] involving left main She was transferred to [facility] for surgical evaluation. Surgery was discussed [...] medically hemodynamically stable she was discharged to [facility] on 01/26/25, POD#14. PHYSICIAN SIGNATURE: documented in this encounter [facility] 01-23-2025 Consult note Associated Order (s): [...] the weekend, please call for a psychiatrist front office attendant. Pt voiced clear understanding of all treatment [...] RD visit. Anna Montez RD Contact #: [phone] Associated Order(s): IP CONSULT TO CARDIAC REHAB Received referral and reviewed chart. Phase II Cardiopulmonary Rehab Referral discussed with Ritika Santana. Patient prefers cardiopulmonary rehab at [facility]. Given information on program at preferred location. Associated Order(s): IP CONSULT TO ENDOCRINOLOGY Department of Internal Medicine Division of Endocrinology, Diabetes, & Metabolism Endocrinology Note Patient Name: Ritika Santana : 1945 AGE: 79 y.o. Room[facility] Admission Date: 01/09/2025 Visit Date: 01/12/2025 Reason for Endocrine Consult: post heart Provider/Team Requesting Consult: cts PCP: Becky Mcknight Outpt Collator: No ASSESSMENT: Stress hyperglycemia CABGx4 CAD/HTN Afib [...] CHOLHDLRATIO 4 01/09/2025 No results found for: [id number] No results found for: TSH, D0YTSLC, V5VCDFQ, THYROIDAB Radiology reportsas per the Radiologist Radiology: CT chest wo IV contrast Result Date: 01/09/2025 Patient Name: [facility]ITIKA [facility]ANTANA : 1945 [id number] Exam Date/Time: 01/09/2025 10:16 Procedure: CT CHEST [...] 01/09/2025 Patient Name: RITIKA SANTANA : 1945 [facility]#: [id number] Exam Date/Time: 01/09/2025 09:06 Procedure: XR CHEST [...] from the original note were not included. [facility]: Critical Care Consultation Note Date: 01/12/25 PATIENT NAME: Ritika Santana : 1945 (79 y.o.) Reason for Consult: Critical Care & Vent Management Fuel Verification Technician: Dr. Ruth - [place] HPI: 79-year-old female with past medical history of macular degeneration, GERD, paroxysmal A-fib, hypertension, presented to the ED at [facility] with complaints of worsening shortness of [...] involving left main She was transferred to [facility] for surgical evaluation. Surgery was discussed [...] Conclusion of Hand-off OR CTVICU CO No [place] CI CVP SVR PAP Additional Interventions/Misc during [...] wrap on LLE (EVH). Diagnostics: Reviewed in [facility] 01/11/25: Interpretation Summary Left Ventricle: Not [...] studies, and electronic medical record notes on [employer] have been reviewed by me. This note documented and discussed by the []liaison officer []Fellow [x] CONSTANCE reflects my history, [...] tolerated Transfuse prn documented in this encounter [facility] 01-22-2025 Note Referral placed to [facility] per [facility] request. Await review and response regarding ability to accept. TCC notified. [facility] 01-22-2025 Note Follow-up discussion had at the bedside with Patient and Spouse regarding discharge plan. They requested a referral be made to [facility]. Referral requested in [facility]. [facility] 01-21-2025 Note Referral placed to [facility] via [facility] per TCC request. [facility] 01-19-2025 Note Referral placed to [facility] via [facility] per TCC request. Await review and response regarding ability to accept. TCC notified. [facility] 01-12-2025 Note [facility] 01-12-2025 Note [facility] 01-12-2025 Note [facility] 01-09-2025 Note [facility] Medical Records Department [address] [place] [address] Discharge Summary 01/09/25911 MR#: [id number] Acct: [id number] Name: RITIKA SANTANA Rep #: [id number] : 1945 79 From: Danial Salazar DO PCP: ERIN GRANT Status:DIS IN Location: [place] [id number] Providers Date of Admission: 01/07/25 Date of [...] is a 79-year-old female who presented to [facility] ED on 01/07/2025 with worsening shortness of breath with exertion and fatigue. Hospital course as noted below. Patient transferred to [facility] on 01/08. 1. NSTEMI type I [...] for transfer for CABG evaluation. Transferred to [facility] on 01/09. Continue heparin drip along [...] No pericardial effusion. (more content not included)... [facility] 01-09-2025 Note [facility] 01-09-2025 History and physical note Images from the original note were not included. [facility] Group: Cardiothoracic Surgery H&P PATIENT NAME: Ritika Santana : 1945 (79 y.o.) TODAY'S DATE: 01/09/2025 DATE OF ADMISSION: 01/09/2025 1:06 AM Subjective: CC: Shortness of breath HPI: 79-year-old female with past medical history of macular degeneration, GERD, paroxysmal A-fib, hypertension, presented to the ED at [facility] with complaints of worsening shortness of [...] involving left main She was transferred to [facility] for surgical evaluation. Ms. Santana lives at home with her . She has a daughter and son that live in the area around her back at [place]. She denies any tobacco use alcohol use [...] distal left main, OM2 70 total and PEDIATRIC PSYCHIATRIST of RCA with very good distal targets [...] ear normal. Nose: Nose normal. Mouth/Throat: Lips: [place]. Dentition: Normal dentition. Tongue: No lesions. Tongue [...] tele Will discuss with Dr. Coreas - front office attendant CT Surgeon Home medications: Cetirizine 10mg capsule [...] of 41 minutes were spent between the dnty-xq-cusi encounter, physical exam, reviewing the medical history, [...] otherwise noted below. As above, 79F from [place] with PMH of macular degeneration, GERD, pAF on eliquis, HTN, presenting to [place] with SOB and diagnosed with NSTEMI. Denies chest pain or SOB currently. [facility] demonstrates MVCAD involving LM. She is very active at home. She meets indication for CABG. Workup still pending as above. Plan will be for use of LBANCO and additional saphenous vein for conduit. Will also place LAAC at time of surgery given pAF history, currently in sinus rhythm. Discussed with the patient and her at bedside. She is tentatively scheduled for CABG/LAAC on 01/12/25, first start. STAFF PHYSICIAN: Lacho Coreas MD DATE OF SERVICE: January 09, 2025 TIME OF SERVICE: 3:23 PM documented in this encounter [facility] 01-08-2025 Progress note Note Date/Time January 08, 2025 2:05pm [facility] Medical Records Department [address] [place] [address] Progress Note - Cardiology 01/08/25 1359 MR#: [id number] Acct: [id number] Name: RITIKA SANTANA Rep #:[id number] : 1945 79 From: Richard White MD PCP: ERIN GRANT Status:ADM IN Location: [place] [address] Subjective Subjective Seen and evaluated at bedside [...] % (Auto) 51.0, Lymph % (Auto) 36.3, Fisher % (Auto) 9.1, Eos % (Auto) 2.5, [...] % (Auto) 51.0, Lymph % (Auto) 36.3, Fisher % (Auto) 9.1, Eos % (Auto) 2.5, [...] for paroxysmal A-fib She has non-ST elevation OR with elevated high sensitive troponins and underwentcardiac catheterization Which revealed severe multivessel CAD involving the distal left main, OM 2 subtotal and PEDIATRIC PSYCHIATRIST of RCA. She has a very good [...] the family and nursing staff here at [facility]. Richard White MD,[facility] 01/08/25 1405 <Electronically signed by Richard White MD> Cosigner Signature (if applicable): CC: ~ Signed [facility] Work Phone: 1(825) 683-594705-29-2025 Progress note Author Danial Salazar [facility] Note Date/Time January 08, 2025 2:00p [facility] Medical Records Department [address] [place] [address] Progress Note - Hospitalist 01/08/25 1038 MR#: [id number] Acct: [id number] Name: RITIKA SANTANA Rep #:[id number] : 1945 79 From: Danial hernandez DO PCP: ERIN GRANT Status:ADM IN Location: [place] [address] Reason for Visit Reason for Visit: Diagnoses Non-ST elevation (NSTEMI) myocardial infarction (01/07/25) Subjective Subjective Saw patient at bedside with afternoon as she was down having her heart cath donethis morning. Several family members were present. Per cardiology, patient wasfound to have triple-vessel disease and plan is for transfer to [facility] for CABG evaluation. Patient was laying back [...] % (Auto) 60.4, Lymph % (Auto) 26.7, Fisher % (Auto) 10.3 H, Eos % (Auto) [...] % (Auto) 51.0, Lymph % (Auto) 36.3, Fisher % (Auto) 9.1, Eos % (Auto) 2.5, [...] are clear. Moderate-sized hiatal hernia. [facility] Physical Exam Const alert, oriented x3, no [...] is a 79-year-old female who presented to [facility] ED on 01/07/2025 with worsening shortness of [...] noted. Per cardiology, plan isfor transfer to [facility] for CABG evaluation. Continue heparin drip [...] Full code, verified Expected disposition: Transfer to [facility] Total clinical time spent by myself addressing the patient's medical issues, reviewing all the data, and collaborating with patient's care team: 35 minutes. Charges/Coding Visit Charges Inpatient E&M: 96107 Subs Hosp L2 01/08/25 1400 <Electronically signed by Danial Salazar DO> Cosigner Signature (if applicable): CC: ~ Signed [facility] Work Phone: 1(842) 815-857805-29-2025 Progress note [facility] Medical Records Department [address] [place] [address] Progress Note - Cardiology 01/08/25 1359 MR#: [id number] Acct: [id number] Name: RITIKA SANTANA Rep #:[id number] : 1945 79 From: Richard White MD PCP: ERIN GRANT Status:ADM IN Location: [place] [address] Subjective Subjective Seen and evaluated at bedside [...] % (Auto) 51.0, Lymph % (Auto) 36.3, Fisher % (Auto) 9.1, Eos % (Auto) 2.5, [...] % (Auto) 51.0, Lymph % (Auto) 36.3, Fisher % (Auto) 9.1,Eos % (Auto) 2.5, Baso [...] for paroxysmal A-fib She has non-ST elevation OR with elevated high sensitive troponins and underwentcardiac catheterization Which revealed severe multivessel CAD involving the distal left main, OM 2 subtotal and PEDIATRIC PSYCHIATRIST of RCA. She has a very good [...] the family and nursing staff here at [facility]. Richard White MD,[facility] 01/08/25 1405 Cosigner Signature (if applicable): CC: ~ Signed [facility]05-29-[address] [facility] Medical Records Department [address] [place] [address] Progress Note - Hospitalist 01/08/25 1038 MR#: [id number] Acct: [id number] Name: RITIKA SANTAAN Rep #:[id number] : 1945 79 From: Danial hernandez DO PCP: ERIN GRANT Status:ADM IN Location: [place] [address] Reason for Visit Reason for Visit: Diagnoses Non-ST elevation (NSTEMI) myocardial infarction (01/07/25) Subjective Subjective Saw patient at bedside with afternoon as she was down having her heart cath donethis morning. Several family members were present. Per cardiology, patient wasfound to have triple-vessel disease and plan is for transfer to [facility] for CABG evaluation. Patient was laying back [...] % (Auto) 60.4, Lymph % (Auto) 26.7, Fisher % (Auto) 10.3 H, Eos % (Auto) [...] % (Auto) 51.0, Lymph % (Auto) 36.3, Fisher % (Auto) 9.1, Eos % (Auto) 2.5, [...] are clear. Moderate-sized hiatal hernia. Reading Location: [place] [address] Physical Exam Const alert, oriented x3, no [...] is a 79-year-old female who presented to [facility] ED on 01/07/2025 with worsening shortness of [...] noted. Per cardiology, plan isfor transfer to [facility] for CABG evaluation. Continue heparin drip [...] Full code, verified Expected disposition: Transfer to [facility] Total clinical time spent by myself addressing the patient's medical issues, reviewing all the data, and collaborating with patient's care team: 35 minutes. Charges/Coding Visit Charges Inpatient E&M: 09904 Subs Hosp L2 01/08/25 1400 Cosigner Signature (if applicable): CC: ~ Signed [facility]05-29-2025 [facility] Medical Records Department [address] [facility] [place] [address] History Physical Exam 01/08/25 1115 MR#: [id number] Acct: [id number] Name: RITIKA SANTANA Rep #: [id number] : 1945 79 From: Richard White MD PCP: ERIN GRANT Status:DIS IN Location: [place] [address] 01/09/25 1534 Cosigner Signature (if applicable): CC: Dr. Richard White MD; ERIN GRANT [facility]igned[facility] Discharge summary Author Houston Morales [facility] Note Date/Time January 07, 2025 8:46p [facility] Medical Records Department [address] [place] [address] Emergency Department Summary 01/07/25 MR#: [id number] Acct: [id number] Name: RITIKA SANTANA Rep #:[id number] : 1945 79 From: Houston esteban DO PCP: ERIN GRANT Status:ADM IN Location: [place] [address] HPI History of Present Illness Chief Complaint: [...] abdominal pain, nausea, vomiting. Patient saw her naphtha washing system operator for the complaint above in which they [...] intact Psych: Cooperative, appropriate mood and affect [facility] Medical History Macular degeneration GERD (gastroesophageal reflux [...] with medical admission. Likely will take to [employer] tomorrow. Hospital service was contacted and patient [...] % (Auto) 60.4 Lymph % (Auto) 26.7 Fisher % (Auto) 10.3 H Eos % (Auto) [...] are clear. Moderate-sized hiatal hernia. Reading Location: [place] [address] Discharge Plan Disposition Disposition: Acute Care Hospital [facility] Discharge Date/Time: 01/07/25 15:22 What to do if you have Problems For any increased pain, shortness of breath, bleeding, nausea or vomiting, chestpain, or any unexpected problems, contact your Primary Care Provider. Call [facility] ([phone]) or report to the closest Emergency Room. Call 911 if necessary. 01/07/252045 <Electronically signed by Houston Morales DO> Cosigner Signature (if applicable): CC: ERIN GRANT ~ Signed [facility] Work Phone: 1(178) 846-157205-28-2025 Discharge summary [facility] Medical Records Department [address] [place] [address] Emergency Department Summary 01/07/25 MR#: [id number] Acct: [id number] Name: RITIKA SANTANA Rep #:[id number] : 1945 79 From: Houston esteban DO PCP: ERIN GRANT Status:ADM IN Location: [place] [address] HPI History of Present Illness Chief Complaint: [...] abdominal pain, nausea, vomiting. Patient saw her naphtha washing system operator for the complaint above in which they [...] intact Psych: Cooperative, appropriate mood and affect [facility] Medical History Macular degeneration GERD (gastroesophageal reflux [...] with medical admission. Likely will take to [facility] [employer] tomorrow. Hospital service was contacted and patient [...] % (Auto) 60.4 Lymph % (Auto) 26.7 Fisher % (Auto) 10.3 H Eos % (Auto) [...] Discharge Plan Disposition Disposition: Acute Care Hospital [facility] Discharge Date/Time: 01/07/25 15:22 What to do if you have Problems For any increased pain, shortness of breath, bleeding, nausea or vomiting, chestpain, or any unexpected problems, contact your Primary Care Provider. Call [facility] ([phone]) or report tothe closest Emergency Room. Call 911 if necessary. 01/07/252045 Cosigner Signature (if applicable): CC: ERIN GRANT ~ Signed [facility]05-28-2025 Consult note Author Richard White [facility] Note Date/Time January 07, 2025 4:49p m [facility] Medical Records Department [address] [facility] [place] [address] Consultation - Cardiology 01/07/25 1642 MR#: [id number] Acct: [id number] Name: RITIKA SANTANA Rep #:[id number] : 1945 79 From: Richard White MD PCP: ERIN GRANT Status:ADM IN Location: [place] [address] HPI Consult Data Date of Consult: 01/07/25 HPI Narrative Reason for Consultation: Non-STEMI HPI Narrative: RITIKA SANTANA, is a 79 F who presents [facility] Medical History Macular degeneration GERD (gastroesophageal reflux [...] requested for elevated high sensitive troponins/non-ST elevation OR. She had symptoms of palpitation with shortness of breath and generalized chest pain mainly described as diffuse chest discomfort with some radiation to the back and to both shoulders more prominent on the left side. Cardiac consultation requested as she has elevated high sensitive troponins witha clinical diagnosis of non-ST elevation OR. Patient has history of paroxysmal A- fib [...] chest pain attime of evaluation. On the front desk monitor showed underlying sinus rhythm. Cardiac exam essentially normal Chest clear to auscultation bilateral Cardiac care plan recommendations; 1. This patient has non-ST elevation OR with significant elevated high sensitive troponin more [...] be set up for tomorrow. Richard White MD,[facility] Risk Stratification Risk Stratification Applicable: Yes [...] % (Auto) 60.4, Lymph % (Auto) 26.7, Fisher % (Auto) 10.3 H, Eos % (Auto) [...] % (Auto) 60.4, Lymph % (Auto) 26.7, Fisher % (Auto) 10.3 H, Eos % (Auto) [...] are clear. Moderate-sized hiatal hernia. Reading Location: [place] [address] 01/07/251648 <Electronically signed by Richard White MD> Cosigner Signature (if applicable): CC: ERIN GRANT~ Signed [facility] Work Phone: 1(928) 479-950005-28-2025 Consult note [facility] Medical Records Department [address] [place] [address] Consultation - Cardiology 01/07/25 164 MR#: [id number] Acct: [id number] Name: RITIKA SANTANA Rep #:[id number] : 1945 79 From: Richard White MD PCP: ERIN GRANT Status:ADM IN Location: [place] [id number] HPI Consult Data Date of Consult: 01/07/25 HPI Narrative Reason for Consultation: Non-STEMI HPI Narrative: RITIKA SANTANA, is a 79 F who presents [facility] Medical History Macular degeneration GERD (gastroesophageal reflux [...] requested for elevated high sensitive troponins/non-ST elevation OR. She had symptoms of palpitation with shortness of breath and generalized chest pain mainly described as diffuse chest discomfort with some radiation to the back and to both shoulders more prominent on the left side. Cardiac consultation requested as she has elevated high sensitive troponins witha clinical diagnosis of non-ST elevation OR. Patient has history of paroxysmal A-fib and [...] chest pain attime of evaluation. On the front desk monitor showed underlying sinus rhythm. Cardiac exam essentially normal Chest clear to auscultation bilateral Cardiac care plan recommendations; 1. This patient has non-ST elevation OR with significant elevated high sensitive troponin more [id number]. Started the patient on heparin Will continue [...] be set up for tomorrow. Richard White MD,[facility] Risk Stratification Risk Stratification Applicable: Yes [...] % (Auto) 60.4, Lymph % (Auto) 26.7, Fisher % (Auto) 10.3 H, Eos % (Auto) [...] % (Auto) 60.4, Lymph % (Auto) 26.7, Fisher % (Auto) 10.3H, Eos % (Auto) 1.5, [...] are clear. Moderate-sized hiatal hernia. Reading Location: [facility] 01/07/25 1649 Cosigner Signature (if applicable): CC: ERIN GRANT~ Signed [facility]05-28-2025 History and physical note Author [place] Damico [facility] Note Date/Time January 07, 2025 1:21p m [facility] Medical Records Department [address] [facility] [place] [address] H&P Exam - Hospitalist 01/07/25 1316 MR#: [id number] Acct: [id number] Name: RITIKA SANTANA Rep #:[id number] : 1945 79 From: Washington Damico DO [...] have gotten better. She went to the naphtha washing system operator office and explained her symptoms and they [...] has never had a myocardial infarction before. [facility] Medical History Macular degeneration GERD (gastroesophageal reflux [...] % (Auto) 60.4, Lymph % (Auto) 26.7, Fisher % (Auto) 10.3 H, Eos % (Auto) [...] are clear. Moderate-sized hiatal hernia. Reading Location: [facility] Assessment & Plan Assessment/Plan (1) NSTEMI, initial [...] full code. Charges/Coding Visit Charges Inpatient E&M: 64000 Init Hosp L3 01/07/25 1321 <Electronically signed by Washington Damico DO> Cosigner Signature (if applicable): CC: Dr. Washington Damico DO; ERIN GRANT~ Signed [facility] Work Phone: 1(547) 696-154805-28-2025 History and physical note Author Washington Damico [facility] Note Date/Time January 07, 2025 1:21p m [facility] Medical Records Department [address] [place] [address] H&P Exam - Hospitalist 01/07/25 1316 MR#: [id number] Acct: [id number] Name: RITIKA SANTANA Rep #:[id number] : 1945 79 From: Washington Damico DO [...] have gotten better. She went to the naphtha washing system operator office and explained her symptoms and they [...] has never had a myocardial infarction before. [facility] Medical History Macular degeneration GERD (gastroesophageal reflux [...] % (Auto) 60.4, Lymph % (Auto) 26.7, Fisher % (Auto) 10.3 H, Eos % (Auto) [...] full code. Charges/Coding Visit Charges Inpatient E&M: 03106 Init Hosp L3 01/07/25 1321 <Electronically signed by Washington Damico DO> Cosigner Signature (if applicable): CC: Dr. Washington Damico DO; ERIN GRANT~ Signed [facility] Work Phone: 1(975) 465-173505-28-2025 History and physical note [facility] Medical Records Department [address] [place] [id number] H&P Exam - Hospitalist 01/07/25 1316 MR#: [id number] Acct: [id number] Name: RITIKA SANTANA Rep #:[id number] : 1945 79 From: Washington Damico DO [...] have gotten better. She went to the naphtha washing system operator office and explained her symptoms and they [...] has never had a myocardial infarction before. [facility] Medical History Macular degeneration GERD (gastroesophageal reflux [...] % (Auto) 60.4, Lymph % (Auto) 26.7, Fisher % (Auto) 10.3 H, Eos % (Auto) [...] are clear. Moderate-sized hiatal hernia. Reading Location: [facility] Assessment & Plan Assessment/Plan (1) NSTEMI, [...] full code. Charges/Coding Visit Charges Inpatient E&M: 41680 Init Hosp L3 01/07/25 1321 Cosigner Signature (if applicable): CC: Dr. Washington Damico DO; ERIN GRANT~ Signed [facility]05-28-2025 Radiology Diagnostic study note [facility] Imaging Services [address] [place] [address] Chest PA and Lateral MR#: [id number] Acct: [id number] Name: RITIKA SANTANA Rep #: [id number] : 1945 F 79 From: Danyel De La Rosa MD PCP: ERIN GRANT Status: REG ER Study:Chest PA and Lateral Date of Exam: 01/07/25 Exam# [id number] Ordering Dr: Houston Day DO PROCEDURE: CHEST [...] are clear. Moderate-sized hiatal hernia. Reading Location: [place] [address] CC: Dr. Houston Morales DO; ERIN GRANT ~ Crop Nutrition Scientist: Signed [facility]03-13-2025 Evaluation note* Diagnosis Onset Date Resolution Status Admit Date Essential hypertension acute [facility] 2024 1:10pm Paroxysmal atrial fibrillation acute October 23, 2024 1:10pm NSTEMI, initial episode of care acut e January 07, 2025 1:00pm [facility] Work Phone: [phone]) 127-822203-13-2025 Evaluation note* Diagnosis Onset Date Resolution Status Admit Date Essential hypertension acute [facility] 2024 1:10pm Paroxysmal atrial fibrillation acute October 23, 2024 1:10pm Essential hypertension acute Ma y 2024 1:00pm NSTEMI, initial episode of care acut e January 07, 2025 1:00pm Paroxysmal atrial fibrillation acute January 07, 2025 1:00pm [facility] Work Phone: 1(172) 621-599603-13-2025 Evaluation note* Diagnosis Onset Date Resolution Status Admit Date Essential hypertension inactive [facility] 2024 1:10pm Paroxysmal atrial fibrillation inact richar October 23, 2024 1:10pm NSTEMI, initial episode of care acut e January 07, 2025 1:00pm Essential hypertension inactive Ma y 2024 1:00pm Paroxysmal atrial fibrillation inact richar January 07, 2025 1:00pm [facility] Work Phone: 1(524) 273-400203-13-2025 Evaluation note* Diagnosis Onset Date Resolution Status Admit Date Essential hypertension acute [facility] 2024 1:10pm Paroxysmal atrial fibrillation chron ic [...] fibrillation chron ic February 11, 2025 12:50pm [facility] Work Phone: 1(175) 607-409209-17-2021 NoteHNO ID: [id number] Author: Lissa Kimball APRN.COLLAR TURNER OPERATOR Service: ? Author Type: Nurse Practitioner Type: [...] feels similar. States they had friends from [place] come in over this past weekend. The history is provided by the patient. No fuel cell engineer was used. URI She complains of cough. [...] Laterality Date - COLONOSCOP W/ OR W/O [facility] SPEC 06/12/12 Colonoscopy repeat 2 years [...] 1 tablet by mouth once daily. Fish Oil-[place]-3 Fatty Acids (FISH OIL OMEGA 3-6-9) 300-1,000 [...] discharge. Extraocular Movements: Extra (more content not included)...[facility]07-21-2021 NoteHNO ID: [id number] Author: Carmen Johnson PA-C Service: ? Author Type: Physician Healthcare Financial Analyst Type: Progress Notes Filed: 03/02/2021 6:00 PM Note Text: This note was created using Bucky Boxriter. Subjective Ritika Santana is a 75 year [...] by mouth once daily. 0 - Fish Oil-[place]-3 Fatty Acids (FISH OIL OMEGA 3-6-9) 300-1,000 [...] HISTORY OF left breast cyst removed x 7116.9 FAMILY HISTORY Problem Relation Age of Onset [...] plan. SHAWNEE Brannon-[facility]02-24-2021 NotePatient Outreach (COVAMN) RITIKA SANTANA ([id number]) 1945 F Date Time Provider Department 10/06/20 NOEL MARROQUIN During your visit today, we recorded the following information about you: Allergies As of Date: 10/06/2020 Noted Allergy Reaction CIPROFLOXACIN 08/20/2020 14 - Other: See Comments Comments: c-diff Date Reviewed: 08/23/2020 Reviewed by: Gilmar (Practical Nursing Teacher) Mayo - Fully Assessed Order(s):SARS-COVID VACCINE 1ST DOSE APPT [[id number]] Order #: [id number] FUTURE Prescriptions as of 10/06/2020 Sig: ELIQUIS [...] neoplasms, colo*04/03/2012 Letter Text Encounter Status:Closed by [facility] [employer] on 10/11/20[facility] Evaluation + Plan note Future Appointments Appointment Date:05/24/2021 08:15:00 AM Scheduled Provider: Location:[facility] Appointment Type:XR Esophogram W/Barium Tablet Appointment Date:07/19/2021 10:10:00 AM Scheduled Provider:SHANNA MADRIGAL Location:[facility] Appointment Type: OV Follow Up Future Scheduled Tests Laboratory* Stool Culture 05/02/21 * Complete Blood Count 01/17/21 * Lipid Profile 01/17/21 * Complete Metabolic Panel 01/17/21 Radiology* BD Bone Density DEXA Axial Skeleton 01/17/21 * XR Esophogram W/Barium Tablet 05/24/21 * MA Mammo Screening Bilateral w/ Santo 01/17/21 [facility] Evaluation + Plan note Future Appointments Appointment Date:06/28/2021 02:00:00 PM Scheduled Provider: Location:[facility] Appointment Type:MA Mammogram Screening Bilateral w/ Santo Appointment Date:06/28/2021 02:30:00 PM Scheduled Provider: Location:[facility] Appointment Type:BD Bone Density DEXA Axial Skeleton Appointment Date:07/19/2021 10:10:00 AM Scheduled Provider:SHANNA MADRIGAL Location:[facility] Appointment Type:PC OV Follow Up Future Scheduled Tests Laboratory* Stool Culture 05/02/21 * Complete Blood Count 01/17/21 * Lipid Profile 01/17/21 * Complete Metabolic Panel 01/17/21 Radiology* BD Bone Density DEXA Axial Skeleton 06/28/21 * MA Mammo Screening Bilateral w/ Santo 06/28/21 [facility] Evaluation + Plan note Future Appointments Appointment Date:07/19/2021 10:10:00 AM Scheduled Provider:SHANNA MADRIGAL Location:[facility] Appointment Type: OV Follow Up Future Scheduled Tests Laboratory* Stool Culture 05/02/21 * Complete Blood Count 01/17/21 * Lipid Profile 01/17/21 * Complete Metabolic Panel 01/17/21 [facility] Evaluation + Plan note Future Appointments Appointment Date:05/08/2025 01:00:00 PM Scheduled Provider:BECKY MCKNIGHT Location:[facility] Appointment Type:PC OV [facility] Evaluation note* Diagnosis CAD, multiple vessel- Primary [...] Anxiety state, unspecified [facility] Diagnosis S/P CABG (coronary artery bypass graft)- Primary Postsurgical aortocoronary bypass status [facility] Narrative No data available for this section [facility] Discharge instructions No data available for this section [facility] Discharge instructionsAmbulatory Orders* Phase II, Outpatient Cardiac Rehab Location: None Selected [facility] Work Phone: Progress note No data available for this section [facility] Reason for referral (narrative)No reason for [facility] Work Phone: Reason for visit Narrative* Auth/Cert (Routine) Specialty Diagnoses / Procedures Referred By Contac t Referred To Contact Diagnoses Atherosclerotic heart disease of [place] coronary artery with other forms of angina pectoris (HCC) Procedures MD CABG W/ARTERIAL GRAFT THREE ARTERIAL GRAFTS MD ECHO TRANSESOPHAG R-T 2D W/PRB IMG ACQUIS I&R Lacho Coreas MD [address] [place] [address] [address] [place] [address] Phone: tel: fax: Referral ID Status Reason Start Date Expiration Date Visits Re quested Visits Authorized [id number] 01/09/2025 1 1 [facility] Summary Purpose Family History Relationship Condition Age at Onset Recorded Date/T nakul father Hypertension Unknown mother Amyotrophic lateral sclerosis Unknown brother Coronary artery disease Unknown Advance Directives Advance Directive Response Recorded Date/ Time Living Will Yes March 26 4 3:24am Do you have a Healthcare Power of Type Soldering Machine Tender? Yes March 26, 2014 3:24am Do you have a Healthcare Power of Type Soldering Machine Tender? Yes January 07, 2025 10:17am Advance Directives Yes March 26, 2014 3:24am Advance Directive Response Recorded Date/ Time Living Will Yes March 26 4 3:24am Do you have a Healthcare Power of Type Soldering Machine Tender? Yes March 26, 2014 3:24am Do you have a Healthcare Power of Type Soldering Machine Tender? Yes January 07, 2025 3:40pm Advance Directives [...] PFM October 23, 2024 1:1 0pm Increased [place], angina symptoms. December 9:06am NSTEMI January 07, [...] section and content) DATE CREATED AUTHOR 09/07/2021 [facility] DATE CREATED AUTHOR AUTHOR'S ORGANIZ ATION 10/03/2023 [facility] ([place]) DATE CREATED AUTHOR AUTHOR'S ORGANIZ ATION 02/04/2025 [facility] DATE CREATED AUTHOR AUTHOR'S ORGANIZ ATION 02/13/2025 [facility] DATE CREATED AUTHOR AUTHOR'S ORGANIZ ATION 02/21/2025 [facility] Care Team (unrecognized sect ion and content) Care Team Personnel Name: SHANNA MADRIGAL Position: P4 Advanced Practice Nurse Member Role: Primary Care Physician Address: Address: [address] [place] [address] Name: CHELSIE LAZO MA, CCC-A Member Role: Combine Operator Address: Address: [address] [place] [address], [address] Care Team Related Persons Name: NONE, NONE Care Team Personnel Name: SHANNA MADRIGAL Position: P4 Advanced Practice Nurse Member Role: Primary Care Physician Address: Address: [address] [place] [address] Name: CHELSIE LAZO MA, CCC-A Member Role: Combine Operator Address: Address: [address] [place] [address] Care Team Related Persons Name: NONE, NONE Patient Care team informatio n (unrecognized section and content) Team Status: Active Member Role Status Dates ERIN GRANT Primary Care Provider Active Team Status: Inactive Member Role Status Dates BECKY MAST NUTRITION SERVICES WORKER Primary Care Provider Active Start: October 23, 2024 End: October 23, 2024 BECKY MAST , NUTRITION SERVICES WORKER Referring Provider Active Sta rt: October 23, 2024 End: October 23, 2024 Layla MALLORY, PA Attending Provider Active Start: October 23, 2024 End: October 23, 2024 Team Status: Active Member Role Status Dates BECKYGOLD MCDONALDNP Primary Care Provider Active Start: January 07, 2025 BECKY CHARLEY , NUTRITION SERVICES WORKER Referring Provider Active Sta rt: January 07, 2025 SHAWNEE Bright Attending Provider Active St art: January 07, 2025 Team Status: Active Member Role Status Dates BECKY MAST NUTRITION SERVICES WORKER Primary Care Provider Active Start: January 07, 2025 Dr. Houston Morales , DO Emergency Provider Activ e Start: January 07, 2025 Dr. Washington Damico , Admit Provider Active Star t: January 07, 2025 Dr. Washington Damico , DO Attending Provider Active Start: January 07, 2025 Team Status: Active Member Role Status Dates BECKYJOSE ALBERTO MCKNIGHT , NUTRITION SERVICES WORKER Primary Care Provider Active Start: January 07, 2025 Dr. Houston Morales , DO Emergency Provider Activ e Start: January 07, 2025 Dr. Washington Damico , DO Attending Provider Active Start: January 07, 2025 Team Status: Active Member Role Status Dates BECKY MAST , NUTRITION SERVICES WORKER Primary Care Provider Active Start: January 07, [...] Member Role Status Dates BECKY MAST , NUTRITION SERVICES WORKER Primary Care Provider Active Start: January 07, [...] Member Role Status Dates BECKY MAST , NUTRITION SERVICES WORKER Primary Care Provider Active Start: January 07, [...] Other Provider Active Start: January 08, 2025 Healthcare Applications Analyst Relationship Specialty Start Date End Date Becky Mcknight [address] [place] [id number] PCP - General Nurse Practitioner 01/08/25 Team Status: Active Member Role/Relationship Status Dates BECKY MAST , NUTRITION SERVICES WORKER Primary Care Provider Active Team Status: Inactive Member Role/Relationship Status Dates BECKY MAST , NUTRITION SERVICES WORKER Primary Care Provider Active Start: October 23, 2024 End: October 23, 2024 BECKY MAST , NUTRITION SERVICES WORKER Referring Provider Active Sta rt: October 23, 2024 End: October 23, 2024 Layla MALLORY, PA Attending Provider Active Start: October 23, 2024 End: October 23, 2024 Team Status: Inactive Member Role/Relationship Status Dates BECKY MAST , NUTRITION SERVICES WORKER Primary Care Provider Active Start: January 07, 2025 End: January 07, 2025 BECKY MAST , NUTRITION SERVICES WORKER Referring Provider Active Sta rt: January 07, 2025 End: January 07, 2025 SHAWNEE Bright Attending Provider Active St art: January 07, 2025 End: January 07, 2025 Team Status: Inactive Member Role/Relationship Status Dates BECKY MAST , NUTRITION SERVICES WORKER Primary Care Provider Active Start: January 07, [...] Role/Relationship Status Dates BECKYJOSE ALBERTO MCKNIGHT , NUTRITION SERVICES WORKER Primary Care Provider Active Start: January 07, 2025 Dr. Houston Morales , DO Emergency Provider Activ e Start: January 07, 2025 Dr. Washington Damico , DO Attending Provider Active Start: January 07, 2025 Team Status: Active Member Role/Relationship Status Dates BECKY MAST , NUTRITION SERVICES WORKER Primary Care Provider Active Start: January 07, [...] Member Role/Relationship Status Dates BECKY MAST , NUTRITION SERVICES WORKER Primary Care Provider Active Start: January 08, [...] Member Role/Relationship Status Dates BECKY MAST , NUTRITION SERVICES WORKER Primary Care Provider Active Start: January 08, [...] Member Role/Relationship Status Dates BECKY MAST , NUTRITION SERVICES WORKER Primary Care Provider Active Start: January 09, [...] Member Role/Relationship Status Dates BECKY MAST , NUTRITION SERVICES WORKER Primary Care Provider Active Start: January 28, 2025 Sukhdev HAND MD Attending Provider Active S tart: January 28, 2025 Team Status: Active Member Role/Relationship Status Dates BECKY MAST , NUTRITION SERVICES WORKER Primary Care Provider Active Start: February 03, 2025 Sukhdev HAND MD Attending Provider Active S tart: February 03, 2025 Team Status: Active Member Role/Relationship Status Dates BECKY MAST , NUTRITION SERVICES WORKER Primary Care Provider Active Start: February 04, 2025 Sukhdev HAND MD Attending Provider Active S tart: February 04, 2025 Team Status: Inactive Member Role/Relationship Status Dates BECKY MAST , NUTRITION SERVICES WORKER Primary Care Provider Active Start: February 11, 2025 End: February 11, 2025 BECKY MAST , NUTRITION SERVICES WORKER Referring Provider Active Sta rt: February 11, 2025 End: February 11, 2025 SHAWNEE Bright Attending Provider Active St art: February 11, 2025 End: February 11, 2025 Team Status: Active Member Role/Relationship Status Dates BECKY MAST , NUTRITION SERVICES WORKER Primary Care Provider Active Start: February 04, 2025 Sukhdev HAND MD Attending Provider Active S tart: February 04, 2025 Sukhdev HAND MD Referring Provider Active S tart: February 04, 2025 Team Status: Inactive Member Role/Relationship Status Dates BECKY MAST , NUTRITION SERVICES WORKER Primary Care Provider Active Start: February 11, 2025 End: February 11, 2025 SHAWNEE Bright Attending Provider Active St art: February 11, 2025 End: February 11, 2025 SHAWNEE Bright Referring Provider Active St art: February 11, 2025 End: February 11, 2025 Healthcare Applications Analyst Relationship Specialty Start Date End Date Brian Mcknightista [address] [place] [id number] PCP - General Nurse Practitioner 01/08/25 Goals [...] 1145 1138 (Given - Provider: Carmen Middleton, LARRY CAR OPERATOR)2036 (Given - Provider: ADONIS DialloP) 0830 (Given - Provider: Chanelle Lopez CYTOLOGY MANAGER)1309 (Given - Provider: ADONIS McdonaldP) latanoprost (Xalatan) [...] sedation for opioid reversal - MUST notify front office attendant provider immediately after first dose, may give [...] crush or chew. 0906 (Given - Provider: Enriqueta Avery RN) 0657 (Given - Provider: Lissa Malloy RN)0936 (Given - Provider: Enriqueta Avery RN) 8941 (Given - Provider: Mary Ramirez RN - [...] BE BASED ON THE PRIMARY CLINICAL RECORDS. depict. provides no warranty or guarantee of the accuracy or completeness of information in this document.
== END | disposition home or self-care (01) ==
LOC: LAB 12:34
PROVIDERS: PCP Nurse Practitioner Adult Health; Referring Provider Student in an Organized Health Care Education/Training Program; Visit Provider Student in an Organized Health Care Education/Training Program
DX: E87.6 Hypokalemia (principal)
CPT/HCPCS: 36415; 80048

== ENCOUNTER → 2025-04-14 | Outpatient (CLI) | payer MEDICARE, SELFPAY ==
[2025-04-14 15:07] LABS: Cholesterol 134 mg/dL (<=200); Low Density Lipoprotein Calc. 54 mg/dL; Triglycerides 169 mg/dL; Very Low Density Lipoprotein 34 mg/dL (5-40); cholesterol:hdl ratio screen 2.88
== END | disposition home or self-care (01) ==
LOC: LAB 13:42
PROVIDERS: PCP Nurse Practitioner Adult Health; Referring Provider Student in an Organized Health Care Education/Training Program; Visit Provider Student in an Organized Health Care Education/Training Program
DX: I25.10 Atherosclerotic heart disease of native coronary artery without angina pectoris (principal)
CPT/HCPCS: 36415; 80061